=== PATIENT | female | born 1960 | race African-American/Black ===

== ENCOUNTER 2016-10-15 15:11 | Emergency (ER) | payer OTHER ==
[2016-10-15 15:24] VITALS: BP 161/89; PULSE 106; TEMP 97.5; BMI 42.9
[2016-10-15] MEDS ORDERED: OXYCODONE/APAP 5/325MG COMBO TABLET PO ONE (16:13)
--- NOTE | 2016-10-15 16:13 | PDOC ---
History of Present Illness - General Chief Complaint: Pain Stated Complaint: LT KNEE PAIN, NAUSEA Time Seen by Provider: 10/15/16 15:26 - History of Present Illness Initial Comments: 10/15/16 16:07 CHIEF COMPLAINT: left knee pain HISTORY OF PRESENT ILLNESS: 55-year-old female with history of hypertension and chronic knee pain (1 year ), presents to [facility] with left knee pain after running out of pain medication. Patient states that she needs a knee replacement and sees Dr. Guadalupe for pain management and Dr. Adonay Vernon for orthopedics. Patient denies chest pain, shortness of breath, palpitations, but states that she has feels felt nauseous recently due to to pain and not having pain medication. Patient denies fever, nausea, vomiting, diarrhea. Patient states she is able to walk but does feel a lot of pain inside her knee. Patient denies any swelling to her legs. Patient reports that she has an appointment scheduled for Monday with . No recent travel or sick contacts. PAST MEDICAL HISTORY: Denies past medical history FAMILY HISTORY: Denies SOCIAL HISTORY: Denies tobacco, alcohol, illicit drug use. SURGICAL HISTORY: Denies ALLERGIES: No known drug allergies REVIEW OF SYSTEMS General/Constitutional: Denies fever or chills. Denies weakness, weight change. HEENT: Denies change in vision. Denies ear pain or discharge. Denies sore throat. Cardiovascular: Denies chest pain or shortness of breath. Respiratory: Denies cough, wheezing, or hemoptysis. Gastrointestinal: Denies nausea, vomiting, diarrhea or constipation. Denies rectal bleeding. Genitourinary: Denies dysuria, frequency, or change in urination. Musculoskeletal: "My knee hurts, I need a knee replacement." Denies joint or muscle swelling or pain. Denies neck or back pain. Skin and breasts: Denies rash or easy bruising. Neurologic: Denies headache, vertigo, loss of consciousness, or loss of sensation. PHYSICAL EXAM General Appearance: Well-appearing, appropriately dressed. No apparent distress , no intoxication. HEENT: EOMI, PERRLA, normal ENT inspection, normal voice, TMs normal, pharynx normal. No conjunctival pallor. No photophobia, scleral icterus. Respiratory/Chest: Lungs CTAB. Cardiovascular: RRR. S1, S2. Vascular Pulses: Dorsalis-Pedis (R): 2+, Dorsalis-Pedis (L): 2+ Gastrointestinal/Abdominal: Normal bowel sounds. Abdomen soft, non-distended. No tenderness or rebound tenderness. No organomegaly, pulsatile mass, guarding , hernia, hepatomegaly, splenomegaly. Musculoskeletal/Extremities: Pain to left knee. No appreciable calf tenderness or swelling, negative Robert's sign. Normal inspection. FROM of all extremities, normal capillary refill. Pelvis Stable. No CVA tenderness. No tenderness to extremities, pedal edema, swelling, erythema or deformity. Integumentary: Appropriate color, dry, warm. 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 Fully oriented, alert. Appropriate mood/affect. No appreciable EOM palsy, facial droop or sensory deficit. Past History - Past Medical History Allergies/Adverse Reactions: Allergies Allergy/AdvReac Type Severity Reaction Status Date / Time No Known Allergies Allergy Verified 04/04/16 11:05 Home Medications: Ambulatory Orders Aspirin [Ecotrin] 81 mg PO DAILY 03/24/16 Carvedilol 25 mg PO BID 03/24/16 Citalopram Hydrobromide [Celexa -] 40 mg PO DAILY 03/24/16 Furosemide [Lasix -] 40 mg PO DAILY PRN 03/24/16 Losartan/Hydrochlorothiazide [Losartan-Hctz 100-25 mg Tab] 1 each PO DAILY 03/24 Omeprazole [Prilosec] 40 mg PO DAILY 03/24/16 Oxycodone HCl/Acetaminophen [Endocet 5-325 Tablet] 2 tab PO QID PRN 03/24/16 Quetiapine Fumarate [Seroquel] 100 tab PO DAILY 03/24/16 Sitagliptin Phosphate [Januvia] 10 mg PO DAILY 03/24/16 Zolpidem Tartrate 5 mg PO HS 03/24/16 Gabapentin 300 mg PO QID 03/27/16 Nitrofurantoin Monohyd/M-Cryst [Macrobid -] 100 mg PO BID #14 capsule 03/27/16 Oxycodone HCl/Acetaminophen [Percocet 5-325 mg Tablet] 1 - 2 tab PO Q6H PRN #12 tab MDD 6 10/15/16 Anemia: No Asthma: No Cancer: No Cardiac Disorders: No CVA: No COPD: No CHF: No Dementia: No Diabetes: No (BORDERLINE) GI Disorders: Yes (REFLUX) Disorders: No HTN: Yes Hypercholesterolemia: No Liver Disease: No Seizures: No Thyroid Disease: No - Psycho/Social/Smoking Cessation Hx Anxiety: No Suicidal Ideation: No Smoking History: Never smoked Have you smoked in the past 12 months: Yes Information on smoking cessation initiated: No Hx Alcohol Use: No Drug/Substance Use Hx: No Substance Use Type: None *Physical Exam - Vital Signs Last Vital Signs Temp Pulse Resp BP Pulse Ox 97.5 F L 106 H 20 161/89 100 10/15/16 15:21 10/15/16 15:21 10/15/16 15:21 10/15/16 15:21 10/15/16 15:21 Medical Decision Making - Medical Decision Making 10/15/16 16:13 55-year-old female with history of hypertension and chronic knee pain presents to [facility] with left knee pain status post running out of pain medication. -2 tabs Percocet 05/325 Advised patient that she must keep her appointment with her pain management doctor, and schedule an appointment with her orthopedic doctor next week. Advised patient that she cannot drive or operate heavy machinery while taking this medication. As patient of signs and symptoms for return to ER. Patient verbalized understanding and agrees to plan *DC/Admit/Observation/Transfer Diagnosis at time of Disposition: Left anterior knee pain - Discharge Dispostion Disposition: HOME Condition at time of disposition: Stable Admit: No - Prescriptions Prescriptions: Oxycodone HCl/Acetaminophen [Percocet 5-325 mg Tablet] 1 - 2 tab PO Q6H PRN #12 tab MDD 6 PRN Reason: Pain - Referrals Referrals: Jessy Elias [Primary Care Provider] - - Patient Instructions Printed Discharge Instructions: DI for Knee Pain Additional Instructions: As discussed, please take this medication as prescribed; do not drive or operate machinery while taking this medication. You must follow-up with her pain management doctor on Monday. Please schedule an appointment with your orthopedic doctor for next week as well. If you develop any chest pain, shortness of breath, palpitations, nausea, weakness, headache, or any new or worsening symptoms, please return to the ER.
[2016-10-15] MEDS ORDERED: OXYCODONE/APAP 5/325MG COMBO TABLET ONE ×2 (16:22→16:25)
== END 2016-10-15 17:05 | disposition home or self-care (01) ==
LOC: JERFT 15:11
DX: M25.562 Pain in left knee (principal); G89.29 Other chronic pain; I10 Essential (primary) hypertension
CPT/HCPCS: 99281-25

== ENCOUNTER 2016-11-03 14:51 | Emergency (ER) | payer OTHER ==
[2016-11-03 15:02] VITALS: BP 143/55; PULSE 104; TEMP 98; BMI 44.4
[2016-11-03] MEDS ORDERED: KETOROLAC TROMETHAMINE 60 MG/2 ML VIAL IM ONE (15:10)
[2016-11-03] MEDS ORDERED: KETOROLAC TROMETHAMINE 60 MG/2 ML VIAL ONE (15:11)
--- NOTE | 2016-11-03 15:22 | PDOC ---
History of Present Illness - General Chief Complaint: Pain, Acute Stated Complaint: RT KNEE/FOOT PAIN Time Seen by Provider: 11/03/16 14:53 - History of Present Illness Initial Comments: 11/03/16 15:16 CHIEF COMPLAINT: knee pain HISTORY OF PRESENT ILLNESS: 55-year-old female with history of hypertension and chronic knee pain (1 year ), presents to [facility] with left knee pain that she was recently seen in this ER for 2-3 weeks ago. Patient states she did follow up with ortho as directed "but he didn't prescribe me anything." She does have a knee replacement scheduled for January. No recent travel or sick contacts. PAST MEDICAL HISTORY: Denies past medical history FAMILY HISTORY: Denies SOCIAL HISTORY: Denies tobacco, alcohol, illicit drug use. SURGICAL HISTORY: Denies ALLERGIES: No known drug allergies REVIEW OF SYSTEMS General/Constitutional: Denies fever or chills. Denies weakness, weight change. HEENT: Denies change in vision. Denies ear pain or discharge. Denies sore throat. Cardiovascular: Denies chest pain or shortness of breath. Respiratory: Denies cough, wheezing, or hemoptysis. Gastrointestinal: Denies nausea, vomiting, diarrhea or constipation. Denies rectal bleeding. Genitourinary: Denies dysuria, frequency, or change in urination. Musculoskeletal: Left knee pain. Denies joint or muscle swelling or pain. Denies neck or back pain. Skin and breasts: Denies rash or easy bruising. PHYSICAL EXAM General Appearance: Well-appearing, appropriately dressed. No apparent distress. HEENT: EOMI, PERRLA, normal ENT inspection, normal voice, TMs normal, pharynx normal. No conjunctival pallor. No photophobia, scleral icterus. Neck: Supple. Trachea midline. No tenderness, rigidity, carotid bruit, stridor , lymphadenopathy, or thyromegaly. Respiratory/Chest: Lungs CTAB. Cardiovascular: RRR. S1, S2. Musculoskeletal/Extremities: Tenderness to left medial knee. Normal inspection. FROM of all extremities, normal capillary refill. Pelvis Stable. No CVA tenderness. No tenderness to extremities, pedal edema, swelling, erythema or deformity. Integumentary: Appropriate color, dry, warm. No cyanosis, erythema, jaundice or rash Neurologic: knitting machine tender II-XII intact. Fully oriented, alert. Appropriate mood/affect. Motor strength 5/5. No appreciable EOM palsy, facial droop or sensory deficit. Past History - Past Medical History Allergies/Adverse Reactions: Allergies Allergy/AdvReac Type Severity Reaction Status Date / Time No Known Allergies Allergy Verified 11/03/16 14:56 Home Medications: Ambulatory Orders Aspirin [Ecotrin] 81 mg PO DAILY 03/24/16 Carvedilol 25 mg PO BID 03/24/16 Citalopram Hydrobromide [Celexa -] 40 mg PO DAILY 03/24/16 Furosemide [Lasix -] 40 mg PO DAILY PRN 03/24/16 Losartan/Hydrochlorothiazide [Losartan-Hctz 100-25 mg Tab] 1 each PO DAILY 03/24 Omeprazole [Prilosec] 40 mg PO DAILY 03/24/16 Oxycodone HCl/Acetaminophen [Endocet 5-325 Tablet] 2 tab PO QID PRN 03/24/16 Quetiapine Fumarate [Seroquel] 100 tab PO DAILY 03/24/16 Sitagliptin Phosphate [Januvia] 10 mg PO DAILY 03/24/16 Zolpidem Tartrate 5 mg PO HS 03/24/16 Gabapentin 300 mg PO QID 03/27/16 Nitrofurantoin Monohyd/M-Cryst [Macrobid -] 100 mg PO BID #14 capsule 03/27/16 Oxycodone HCl/Acetaminophen [Percocet 5-325 mg Tablet] 1 - 2 tab PO Q6H PRN #12 tab MDD 6 10/15/16 Diclofenac Sodium [Voltaren -] 75 mg PO BID #14 tablet. 11/03/16 Anemia: No Asthma: No Cancer: No Cardiac Disorders: No CVA: No COPD: No CHF: No Dementia: No Diabetes: No (BORDERLINE) GI Disorders: Yes (REFLUX) Disorders: No HTN: Yes Hypercholesterolemia: No Liver Disease: No Seizures: No Thyroid Disease: No Other medical history: chronic knee pain - Psycho/Social/Smoking Cessation Hx Anxiety: No Suicidal Ideation: No Smoking History: Never smoked Have you smoked in the past 12 months: Yes Information on smoking cessation initiated: No Hx Alcohol Use: No Drug/Substance Use Hx: No Substance Use Type: None *Physical Exam - Vital Signs Last Vital Signs Temp Pulse Resp BP Pulse Ox 98 F 104 H 18 143/55 97 11/03/16 14:53 11/03/16 14:53 11/03/16 14:53 11/03/16 14:53 11/03/16 14:53 ED Treatment Course - Medications Given in the ED: ED Medications Discontinued Medications Generic Name Dose Route Start Last Admin Trade Name Fatoumata PRN Reason Stop Dose Admin Ketorolac Tromethamine 60 mg 11/03/16 15:10 11/03/16 15:15 Toradol Injection - IM 11/03/16 15:11 60 mg ONCE ONE Administration Medical Decision Making - Medical Decision Making 11/03/16 15:22 55-year-old female with history of hypertension and chronic knee pain (1 year ) , presents to [facility] with left knee pain that she was recently seen in this ER for 2-3 weeks ago. [facility] referenced. Patient has filled multiple scripts for narcotics from different providers within the last two weeks. -60 mg IM Toradol Will discharge with NSAIDS. Discussed with patient that she needs to continue follow up with pain management and ortho for her knee pain. Advised patient of signs and symptoms for return to ER; patient verbalized understanding and agrees to plan. *DC/Admit/Observation/Transfer Diagnosis at time of Disposition: Left anterior knee pain - Discharge Dispostion Disposition: HOME Condition at time of disposition: Stable Admit: No - Prescriptions Prescriptions: Diclofenac Sodium [Voltaren -] 75 mg PO BID #14 tablet.dr - Referrals Referrals: Jessy Elias [Primary Care Provider] - - Patient Instructions Printed Discharge Instructions: DI for Knee Pain Additional Instructions: Please take medications as prescribed. As discussed, you must follow up with orthopedics and pain management for your knee pain as they are the ones following your care consistently. If you develop any swelling to your leg, shortness of breath, palpitations, or any new or worsening symptoms, please return to the ER.
== END 2016-11-03 15:40 | disposition home or self-care (01) ==
LOC: JERFT 14:51
PROC: 3E0233Z Introduction of Anti-inflammatory into Muscle, Percutaneous Approach (ICD-10-PCS; principal; 2016-11-03)
DX: M25.562 Pain in left knee (principal); I10 Essential (primary) hypertension; K21.9 Gastro-esophageal reflux disease without esophagitis
CPT/HCPCS: 99281-25

== ENCOUNTER 2017-01-30 11:22 | Emergency (ER) | payer OTHER ==
[2017-01-30 11:45] VITALS: BP 168/94; PULSE 103; TEMP 98; BMI 43.4
[2017-01-30] MEDS ORDERED: OXYCODONE/APAP 5/325MG COMBO TABLET PO ONE (12:57)
--- NOTE | 2017-01-30 12:57 | PDOC ---
History of Present Illness - General Chief Complaint: Pain Stated Complaint: BACK P-AIN Time Seen by Provider: 01/30/17 11:57 Past History - Past Medical History Allergies/Adverse Reactions: Allergies Allergy/AdvReac Type Severity Reaction Status Date / Time No Known Allergies Allergy Verified 01/30/17 11:45 Home Medications: Ambulatory Orders Aspirin [Ecotrin] 81 mg PO DAILY 03/24/16 Carvedilol 25 mg PO BID 03/24/16 Citalopram Hydrobromide [Celexa -] 40 mg PO DAILY 03/24/16 Losartan/Hydrochlorothiazide [Losartan-Hctz 100-25 mg Tab] 1 each PO DAILY 03/24 Omeprazole [Prilosec] 40 mg PO DAILY 03/24/16 Quetiapine Fumarate [Seroquel] 100 tab PO DAILY 03/24/16 Sitagliptin Phosphate [Januvia] 10 mg PO DAILY 03/24/16 Zolpidem Tartrate 5 mg PO HS 03/24/16 Nitrofurantoin Monohyd/M-Cryst [Macrobid -] 100 mg PO BID #14 capsule 03/27/16 Diclofenac Sodium [Voltaren -] 75 mg PO BID #14 tablet. 11/03/16 Gabapentin [Neurontin] 300 mg PO TID #30 capsule 01/30/17 Oxycodone HCl/Acetaminophen [Percocet 5-325 mg Tablet] 1 - 2 tab PO TID PRN #20 tab MDD 6 01/30/17 Anemia: No Asthma: No Cancer: No Cardiac Disorders: No CVA: No COPD: No CHF: No Dementia: No Diabetes: No (BORDERLINE) GI Disorders: Yes (REFLUX) Disorders: No HTN: Yes Hypercholesterolemia: No Liver Disease: No Seizures: No Thyroid Disease: No - Immunization History Immunization Up to Date: Yes - Psycho/Social/Smoking Cessation Hx Anxiety: No Suicidal Ideation: No Smoking History: Never smoked Have you smoked in the past 12 months: Yes Information on smoking cessation initiated: No Hx Alcohol Use: No Drug/Substance Use Hx: No Substance Use Type: None Review of Systems - Review of Systems Constitutional: No: Chills, Fever Respiratory: No: Cough, Shortness of Breath Cardiac (ROS): No: Chest Pain ABD/GI: No: Nausea, Vomiting Musculoskeletal: Yes: Joint Pain Neurological: Yes: Tingling. No: Headache, Numbness, Weakness All Other Systems: Reviewed and Negative *Physical Exam - Vital Signs Last Vital Signs Temp Pulse Resp BP Pulse Ox 98.0 F 103 H 16 168/94 100 01/30/17 11:25 01/30/17 11:25 01/30/17 11:25 01/30/17 11:25 01/30/17 11:25 Medical Decision Making - Medical Decision Making 01/30/17 12:57 A portion of this note was documented by scribe services under my direction. I have reviewed the details of the note, within reason, and agree with the documentation with the following case summary and management plan written by me. 56-year-old female with history of arthritis pending left knee replacement maintained on daily Percocet presents for Percocet refill. No change or new injury, no fever or redness or swelling. Patient has also been experiencing right fingertip tingling for a few days, so a neurologist and was given propranolol, but she is asking to make sure that she is not having a stroke or heart attack. She has no other concerning symptoms. Vital signs normal. HR 74 in stretcher. Neurological exam is normal. Left knee without redness or swelling, full range of motion without acute effusion Neurovascularly intact distally 56-year-old female essentially here for Percocet refill. Her right hand tingling could be related to diabetes, could be arthritic, but does not appear related to stroke or ACS. Reassured No emergent workup indicated Will give dose of pain med (taking taxi home) and will give brief refill but counseled regarding precautions for these meds and that she should follow up with her PMD/ortho for her pain med needs. *DC/Admit/Observation/Transfer Diagnosis at time of Disposition: Arthritis of left knee - Discharge Dispostion Disposition: HOME Condition at time of disposition: Stable - Prescriptions Prescriptions: Gabapentin [Neurontin] 300 mg PO TID #30 capsule Oxycodone HCl/Acetaminophen [Percocet 5-325 mg Tablet] 1 - 2 tab PO TID PRN #20 tab MDD 6 PRN Reason: Pain - Referrals Referrals: Ori Rhodes DO [Staff Physician] - Karlos Manrique MD [Staff Physician] - - Patient Instructions Printed Discharge Instructions: DI for Arthritis, DI for Prescription Opioid Use Additional Instructions: Activity as tolerated. Stay hydrated. Percocet and gabapentin as prescribed. Percocet can make you lightheaded, so take proper precautions. Continue your other medications as previously prescribed by your physician. You should follow up with your primary doctor, Dr. Rhodes, and your orthopedic as soon as possible regarding today's emergency department visit. Return to the emergency department for any new or concerning symptoms, particularly fever/chills, weakness/headache/numbness, intolerable pain.
[2017-01-30] MEDS ORDERED: OXYCODONE/APAP 5/325MG COMBO TABLET ONE (13:05)
== END 2017-01-30 13:15 | disposition home or self-care (01) ==
LOC: JER 11:22
DX: M13.862 Other specified arthritis, left knee (principal); I10 Essential (primary) hypertension; E11.9 Type 2 diabetes mellitus without complications; Z79.84 Long term (current) use of oral hypoglycemic drugs; K21.9 Gastro-esophageal reflux disease without esophagitis
CPT/HCPCS: 99282-25

== ENCOUNTER 2017-02-01 14:13 | Emergency (ER) | payer OTHER ==
[2017-02-01 14:22] VITALS: TEMP 99; BMI 27.4
--- NOTE | 2017-02-01 14:22 | PDOC ---
History of Present Illness - General Chief Complaint: Injury Stated Complaint: FALL History Source: Patient Exam Limitations: No Limitations - History of Present Illness Initial Comments: 02/01/17 14:26 This is a 55 yo F with PMH of HTN and chronic L knee pain (1 year ), who presents with bernardo pain lower back pain s/p fall yesterday. Yesterday afternoon she suffered a witnessed mechanical fall, when she tripped on a curb and fell forward, landing on the grass with her R knee and hitting her forehead on grass. She lost consciousness for a few seconds then woke up and got up. She was able to walk after. Immediately after fall, she had a mild frontal h/a that persists this morning. However, this morning she also has new symptoms of neck pain, unable to bend neck to the left or turn head left due to pain. She also complains of L lumbar pain radiating down her buttock and her L posterior thigh. She denies n/v, loss of bowel fxn, incontinence, weakness or numbness, chest pain, sob, palpitation, further loc, dizziness, f/c, diarrhea, constipation, dysuria. She is asking for percocet stating that it is the only medication that helps her. 02/01/17 15:43 02/01/17 18:32 Past History - Past Medical History Allergies/Adverse Reactions: Allergies Allergy/AdvReac Type Severity Reaction Status Date / Time No Known Allergies Allergy Verified 02/01/17 14:17 Home Medications: Ambulatory Orders Aspirin [Ecotrin] 81 mg PO DAILY 03/24/16 Carvedilol 25 mg PO BID 03/24/16 Citalopram Hydrobromide [Celexa -] 40 mg PO DAILY 03/24/16 Losartan/Hydrochlorothiazide [Losartan-Hctz 100-25 mg Tab] 1 each PO DAILY 03/24 Omeprazole [Prilosec] 40 mg PO DAILY 03/24/16 Quetiapine Fumarate [Seroquel] 100 tab PO DAILY 03/24/16 Sitagliptin Phosphate [Januvia] 10 mg PO DAILY 03/24/16 Zolpidem Tartrate 5 mg PO HS 03/24/16 Diclofenac Sodium [Voltaren -] 75 mg PO BID #14 tablet. 11/03/16 Gabapentin [Neurontin] 300 mg PO TID #30 capsule 01/30/17 Oxycodone HCl/Acetaminophen [Percocet 5-325 mg Tablet] 1 - 2 tab PO TID PRN #20 tab MDD 6 01/30/17 Methocarbamol [Robaxin -] 500 mg PO BID #14 tablet 02/01/17 Anemia: No Asthma: No Cancer: No Cardiac Disorders: No CVA: No COPD: No CHF: No Dementia: No Diabetes: No (BORDERLINE) GI Disorders: Yes (REFLUX) Disorders: No HTN: Yes Hypercholesterolemia: No Liver Disease: No Seizures: No Thyroid Disease: No - Immunization History Immunization Up to Date: Yes - Psycho/Social/Smoking Cessation Hx Anxiety: No Suicidal Ideation: No Smoking History: Never smoked Have you smoked in the past 12 months: Yes Hx Alcohol Use: No Drug/Substance Use Hx: No Substance Use Type: None Review of Systems - Review of Systems Able to Perform ROS?: Yes Is the patient limited Swiss proficient: No Constitutional: No: Chills, Fever HEENTM: No: Blurred Vision, Nose Congestion, Nose Bleeding, Throat Pain Respiratory: No: Cough, Orthopnea, Shortness of Breath Cardiac (ROS): No: Chest Pain, Irregular Heart Rate, Lightheadedness, Palpitations ABD/GI: No: Abdominal Distended, Constipated, Diarrhea, Nausea, Vomiting : No: Dysuria, Flank Pain Musculoskeletal: Yes: Back Pain, Joint Pain (r knee), Muscle Pain (L neck ), Neck Pain. No: Joint Swelling, Muscle Weakness, Joint Stiffness Integumentary: Yes: Lesions (small abrasion in R knee), Lumps (small lump on r forehead ). No: Bruising, Rash Neurological: Yes: Headache. No: Numbness, Paresthesia, Seizure, Tingling, Weakness, Ataxia, Dizziness Psychiatric: No: Anxiety, Depression Endocrine: No: Change in Weight Hematologic/Lymphatic: No: Anemia, Blood Clots, Easy Bleeding, Easy Bruising All Other Systems: Reviewed and Negative *Physical Exam - Physical Exam Comments: 02/01/17 15:53 General: NAD AAOx3 HEENT:PERRLA EOMI, sclera anicteric, conjunctiva clear CV: RRR S1S2 Pulm: CTA b/l GI: obese, soft, nontender, nondistended, normoactive bowel sounds. Neuro: CN II-XII intact, strength 5/5 in all extremities, sensation intact Musculoskeletal: no peripheral edema or calf tenderness, small r knee abrasion, limited ROM in neck with L sided rotation and side bending and well as flexion, both passive and active due to pain. mild tenderness over cervical and lumbar spine. Medical Decision Making - Medical Decision Making 02/01/17 15:55 Patient presents s/p mechanical fall with clinical picture most consistent with post traumatic L sided SCM and gluteal muscle spasm. Head trauma mechanism mild not suspicious for intracranial bleed or CVA X ray: R knee, c spine, l spine r/o fracture. motrin and flexeril, one percocet Patient may be drug seeking for opiates, however degree and mechanism of pain does not warrant opiate as first line treatment 02/01/17 15:57 02/01/17 18:32 x rays unremarkable for acute fracture. Patient stable for d/c home with PCP f/u, will prescribe robaxin 500 bid 02/01/17 18:32 02/01/17 18:33 02/01/17 18:33 02/01/17 18:34 02/01/17 18:51 02/01/17 18:52 *DC/Admit/Observation/Transfer Diagnosis at time of Disposition: Muscle spasm, Fall - Prescriptions Prescriptions: Methocarbamol [Robaxin -] 500 mg PO BID #14 tablet - Referrals Referrals: Jessy Elias [Primary Care Provider] - - Patient Instructions
[2017-02-01] MEDS ORDERED: CYCLOBENZAPRINE HCL 10 MG TABLET (FP) PO ONE (15:02)
[2017-02-01] MEDS ORDERED: IBUPROFEN 600 MG TABLET (FP) PO ONE ×2 (15:03→15:06)
[2017-02-01] MEDS ORDERED: CYCLOBENZAPRINE HCL 10 MG TABLET (FP) ONE (15:05)
--- NOTE | 2017-02-01 15:52 | PDOC ---
Attending Attestation - Resident Resident Name: Rowan Webb - ED Attending Attestation I have performed the following: I have examined & evaluated the patient, The case was reviewed & discussed with the resident, I agree w/resident's findings & plan - HPI HPI: 02/01/17 15:49 56y F hx of chronic knee pain, htn, presents s/p fall The pt states she was coming out of the car and tripped over an uneven curb, striking her head on the floor and knee. The pt endorsed possible brief loc, but felt fine yetserday and she states she was evaluated at [facility] and had an xray stanley twas negative. pt come to the ED today due to onset of neck an dupper back pain this morning. no assoicated new numbness/tingling/weakness, no midline back pain, no headache, n/v, vision changes. pt also complains of persistent knee pain. pt has mild contusion to her L forehead with no creiptus PERRL, neuro exam unremarakble no tenderness on midline cervical/thoracic/lumbar region +tenderness at L trapenizus and upper back muscles to palpation diffuse knee pain b/l but able to passively range it without much difficulty exam otherwise as documented by resident will obtain xrays pain control suspect contusion/strain will treat supportively - Physicial Exam PE: 02/03/17 09:12 see above - Medical Decision Making 02/03/17 09:12 see above
[2017-02-01] MEDS ORDERED: OXYCODONE/APAP 5/325MG COMBO TABLET PO ONE ×2 (16:31→19:12)
[2017-02-01] MEDS ORDERED: OXYCODONE/APAP 5/325MG COMBO TABLET ONE ×2 (16:54→19:20)
--- NOTE | 2017-02-01 20:37 | PDOC ---
*Physical Exam - Vital Signs Last Vital Signs Temp Pulse Resp BP Pulse Ox 99 F 94 H 18 156/90 97 02/01/17 14:17 02/01/17 14:17 02/01/17 14:17 02/01/17 14:17 02/01/17 14:17 ED Treatment Course - Medications Given in the ED: ED Medications Discontinued Medications Generic Name Dose Route Start Last Admin Trade Name Freq PRN Reason Stop Dose Admin Cyclobenzaprine HCl 10 mg 02/01/17 15:02 02/01/17 15:12 Flexeril - PO 02/01/17 15:03 10 mg ONCE ONE Administration Ibuprofen 600 mg 02/01/17 15:03 02/01/17 15:12 Motrin - PO 02/01/17 15:04 600 mg ONCE ONE Administration Oxycodone/Acetaminophen 1 combo 02/01/17 16:31 02/01/17 16:57 Percocet 5/325 - PO 02/01/17 16:32 1 combo ONCE ONE Administration Oxycodone/Acetaminophen 1 combo 02/01/17 19:12 02/01/17 19:23 Percocet 5/325 - PO 02/01/17 19:13 1 combo ONCE ONE Administration Medical Decision Making - Medical Decision Making I reviewed the XR reports with patient. Percocet and robaxin prescribed for pain. I was later contacted by the pharmacy, as robaxin is not covered by her insurance. Changed to tizanadine. *DC/Admit/Observation/Transfer Diagnosis at time of Disposition: Muscle spasm Fall Qualifiers: Encounter type: initial encounter Qualified Code(s): W19.XXXA - Unspecified fall, initial encounter - Discharge Dispostion Disposition: HOME Condition at time of disposition: Stable Admit: No - Prescriptions Prescriptions: Oxycodone HCl/Acetaminophen [Percocet 5-325 mg Tablet] 1 - 2 tab PO Q6H PRN #20 tab MDD 8 tabs PRN Reason: Severe Pain Methocarbamol [Robaxin -] 500 mg PO BID #14 tablet - Referrals Referrals: Jessy Elias [Primary Care Provider] - - Patient Instructions Printed Discharge Instructions: DI for Contusion, DI for Knee Pain - Post Discharge Activity
[2017-02-01 21:29] VITALS: BP 145/85; PULSE 82
== END 2017-02-01 21:29 | disposition home or self-care (01) ==
LOC: JER 14:13
DX: S00.83XA Contusion of other part of head, initial encounter (principal); M54.5 Low back pain; M79.652 Pain in left thigh; W10.1XXA Fall (on)(from) sidewalk curb, initial encounter; Y93.01 Activity, walking, marching and hiking; Y92.480 Sidewalk as the place of occurrence of the external cause; Y99.8 Other external cause status
CPT/HCPCS: 72050-TC; 72100-TC; 73560-TC-RT; 99283-25

== ENCOUNTER 2017-02-09 11:40 | Emergency (ER) | payer OTHER ==
[2017-02-09 11:58] VITALS: BP 153/64; PULSE 79; TEMP 98.5; BMI 43.5
--- NOTE | 2017-02-09 12:03 | PDOC ---
"History of Present Illness - General Chief Complaint: Pain Stated Complaint: LEGS PAIN Time Seen by Provider: 02/09/17 11:59 History Source: Patient Exam Limitations: No Limitations - History of Present Illness Initial Comments: CHIEF COMPLAINT: 56 y/o afebrile female with chronic pain and scheduled for a left knee replacement here for a refill of percocet for her left knee pain. HISTORY OF PRESENT ILLNESS: The patient states that she needs a left knee replacement and does see a pain management doctor. SHe states she is not scheduled for her pain management appointment until next week and needs percocet for her knee pain. She denies any new trauma to the knee. SHe denies f /c, redness/warmth to affected extremity. Vital signs on arrival are within normal limits. REVIEW OF SYSTEMS: GENERAL/CONSTITUTIONAL: No fever/chills. No weakness. No weight change. GENITOURINARY: No dysuria, frequency, or change in urination. MUSCULOSKELETAL: +left knee pain. NEUROLOGIC: No headache, vertigo, loss of consciousness, or loss of sensation. PHYSICAL EXAM: VITAL_SIGNS: within normal limits GENERAL_APPEARANCE: alert, cooperative, mild obvious discomfort with ambulation. The patient is morbidly obese and ambulatory with a cane. MENTAL_STATUS: speech clear, oriented X 3, responds appropriately to questions. NEURO: motor intact and sensory intact in injured extremity. EXTREMITIES: good pulse in injured extremity. Left knee without edema, erythema or warmth. TTP medial and lateral joint lines of left knee. Full flexion and extension of left knee. SKIN: warm, dry, good color. Past History - Past Medical History Allergies/Adverse Reactions: Allergies Allergy/AdvReac Type Severity Reaction Status Date / Time No Known Allergies Allergy Verified 02/09/17 11:53 Home Medications: Ambulatory Orders Aspirin [Ecotrin] 81 mg PO DAILY 03/24/16 Carvedilol 25 mg PO BID 03/24/16 Citalopram Hydrobromide [Celexa -] 40 mg PO DAILY 03/24/16 Losartan/Hydrochlorothiazide [Losartan-Hctz 100-25 mg Tab] 1 each PO DAILY 03/24 Omeprazole [Prilosec] 40 mg PO DAILY 03/24/16 Quetiapine Fumarate [Seroquel] 100 tab PO DAILY 03/24/16 Sitagliptin Phosphate [Januvia] 10 mg PO DAILY 03/24/16 Zolpidem Tartrate 5 mg PO HS 03/24/16 Diclofenac Sodium [Voltaren -] 75 mg PO BID #14 tablet. 11/03/16 Gabapentin [Neurontin] 300 mg PO TID #30 capsule 01/30/17 Oxycodone HCl/Acetaminophen [Percocet 5-325 mg Tablet] 1 - 2 tab PO TID PRN #20 tab MDD 6 01/30/17 Methocarbamol [Robaxin -] 500 mg PO BID #14 tablet 02/01/17 Oxycodone HCl/Acetaminophen [Percocet 5-325 mg Tablet] 1 - 2 tab PO Q6H PRN #20 tab MDD 8 tabs 02/01/17 Anemia: No Asthma: No Cancer: No Cardiac Disorders: No CVA: No COPD: No CHF: No Dementia: No Diabetes: No (BORDERLINE) GI Disorders: Yes (REFLUX) Disorders: No HTN: Yes Hypercholesterolemia: No Liver Disease: No Seizures: No Thyroid Disease: No - Immunization History Immunization Up to Date: Yes - Psycho/Social/Smoking Cessation Hx Anxiety: No Suicidal Ideation: No Smoking History: Never smoked Have you smoked in the past 12 months: Yes Hx Alcohol Use: No Drug/Substance Use Hx: No Substance Use Type: None *Physical Exam - Vital Signs Last Vital Signs Temp Pulse Resp BP Pulse Ox 98.5 F 79 17 153/64 98 02/09/17 11:53 02/09/17 11:53 02/09/17 11:53 02/09/17 11:53 02/09/17 11:53 Medical Decision Making - Medical Decision Making A/P: 56 y/o here for refill of percocet for left knee pain. The patient's record was pulled up on [facility]. She was prescribed 90 pills of endocet on 01/18 which she states doesn't work for her. She states Percocet works for her only ( same ingredients). She had percocet prescribed on 01/30 and on 02/01 (both 4 day prescriptions). Please see istop report below. Confidential Drug Utilization Report Search Terms: alana arcos, 1960 Search Date: 02/09/2017 12:25:00 PM The Drug Utilization Report below displays all of the controlled substance prescriptions, if any, that your patient has filled in the last twelve months. The information displayed on this report is compiled from pharmacy submissions to the Department, and accurately reflects the information as submitted by the pharmacies. This report was requested by: Ellie Saldana | Reference #: [id number] Others' Prescriptions Patient Name: Alana Arcos Date: 1960 Address: [place] [address] Sex: Female Rx Written Rx Dispensed Drug Quantity Days Supply Prescriber Name 02/01/2017 02/01/2017 oxycodone-acetaminophen 5-325 mg tab 20 4 Karina Causey () 01/30/2017 01/30/2017 oxycodone-acetaminophen 5-325 mg tab 20 4 Jose F Lee) 10/15/2016 10/15/2016 oxycodone-acetaminophen 5-325 mg tab 12 2 Nicolle Carrion ([facility]) 06/23/2016 06/23/2016 diazepam 5 mg tablet 3 1 Anthony Perales MD Patient Name: Alana Arcos Date: 1960 Address: [place] [address] Sex: Female Rx Written Rx Dispensed Drug Quantity Days Supply Prescriber Name 01/18/2017 01/18/2017 endocet 10-325 mg tablet 90 30 Zeus Mono A 01/13/2017 01/13/2017 endocet 10-325 mg tablet [address] [facility] [place] 12/13/2016 12/14/2016 endocet 10-325 mg tablet 90 30 NatalioRenny katz 11/16/2016 11/17/2016 endocet 10-325 mg tablet 90 30 Kevin Terrazas MD 11/15/2016 11/15/2016 morphine sulf er 15 mg tablet 60 30 Renny Lance 10/26/2016 10/26/2016 tramadol hcl 50 mg tablet 20 10 Cedrick GibbsP 10/17/2016 10/17/2016 endocet 10-325 mg tablet 120 30 Kevin Terrazas MD 10/11/2016 10/11/2016 tramadol hcl 50 mg tablet 15 8 Jessy Elias MD 09/24/2016 09/24/2016 tramadol hcl 50 mg tablet 20 6 Cedrick GibbsP 09/20/2016 09/20/2016 endocet 10-325 mg tablet 120 30 Zeus, Mono A 09/14/2016 09/16/2016 tramadol hcl 50 mg tablet 20 10 Cedrick Gibbs Rubin LIP 09/05/2016 09/05/2016 tramadol hcl 50 mg tablet 20 10 Jessy Elias MD 08/23/2016 08/23/2016 tramadol hcl 50 mg tablet 10 3 Rubin Holt MD 08/19/2016 08/19/2016 morphine sulf er 15 mg tablet 60 30 Philip Zarate 08/19/2016 08/19/2016 endocet 10-325 mg tablet 120 30 Philip Zarate 08/03/2016 08/03/2016 zolpidem tartrate 10 mg tablet 30 30 Shayan Jimenez MD 07/20/2016 07/20/2016 endocet 10-325 mg tablet 120 30 Kevin Terrazas MD 07/20/2016 07/20/2016 morphine sulf er 15 mg tablet 60 30 NiniKevin sanchez MD 07/05/2016 07/06/2016 zolpidem tartrate 10 mg tablet 30 30 Shayan Jimenez MD 06/20/2016 06/20/2016 endocet 10-325 mg tablet 90 30 Zeus, Mono A 06/20/2016 06/20/2016 morphine sulf er 15 mg tablet 60 30 Zeus, Mono A 05/20/2016 05/23/2016 morphine sulf er 15 mg tablet 60 30 Kevin Terrazas MD 05/20/2016 05/20/2016 endocet 10-325 mg tablet 90 30 Kevin Terrazas MD 04/20/2016 04/20/2016 endocet 10-325 mg tablet 90 30 Philip Zarate 04/20/2016 04/20/2016 morphine sulf er 15 mg tablet 60 30 Philip Zarate 03/21/2016 03/21/2016 endocet 10-325 mg tablet 90 30 Thor [facility] 03/21/2016 03/21/2016 morphine sulf er 15 mg tablet 60 30 Thor [facility] 02/19/2016 02/19/2016 endocet 10-325 mg tablet 90 30 Kevin Terrazas MD 02/19/2016 02/19/2016 morphine sulf er 15 mg tablet 60 30 Kevin Terrazas MD Patient Name: Alana Arcos Date: 1960 Address: [address] [place] [address] Sex: Female Rx Written Rx Dispensed Drug Quantity Days Supply Prescriber Name 01/10/2017 01/11/2017 zolpidem tartrate 10 mg tablet 30 30 Shayan Jimenez MD 11/29/2016 12/02/2016 zolpidem tartrate 10 mg tablet 30 30 Shayan Jimenez MD 11/01/2016 11/03/2016 zolpidem tartrate 10 mg tablet 30 30 hSayan Jimenez MD 09/27/2016 10/05/2016 zolpidem tartrate 10 mg tablet 30 30 Shayan Jimenez MD 09/06/2016 09/08/2016 zolpidem tartrate 10 mg tablet 30 30 Shayan Jimenez MD Explained to the patient that Endocet and percocet are essentially the same and showed her the Istop report. WIll give toradol in the ER and suggested she call her Pain management doctor tomorrow and attempt to get an earlier appointment. The patient verbalizes understanding of all instructions, has no further questions and is awaiting discharge. *DC/Admit/Observation/Transfer Diagnosis at time of Disposition: Knee pain, left Qualifiers: Chronicity: acute Qualified Code(s): M25.562 - Pain in left knee - Discharge Dispostion Disposition: HOME Condition at time of disposition: Good - Referrals Referrals: Jessy Elias [Primary Care Provider] - - Patient Instructions Printed Discharge Instructions: DI for Knee Pain, How To Perform RICE (Rest, Ice, Compress, Elevate) Additional Instructions: Discharge Instructions: -Please see your pain management doctor as scheduled next week for refill of your narcotic prescription"
[2017-02-09] MEDS ORDERED: KETOROLAC TROMETHAMINE 60 MG/2 ML VIAL IM ONE (12:22)
[2017-02-09] MEDS ORDERED: KETOROLAC TROMETHAMINE 60 MG/2 ML VIAL ONE (12:27)
== END 2017-02-09 12:40 | disposition home or self-care (01) ==
LOC: JERFT 11:40
PROC: 3E0233Z Introduction of Anti-inflammatory into Muscle, Percutaneous Approach (ICD-10-PCS; principal; 2017-02-09)
DX: M25.562 Pain in left knee (principal); G89.29 Other chronic pain
CPT/HCPCS: 99281-25

== ENCOUNTER 2017-03-13 12:21 | Emergency (ER) | payer OTHER ==
[2017-03-13 12:29] VITALS: BP 149/96; PULSE 76; TEMP 98; BMI 41.9
[2017-03-13] MEDS ORDERED: KETOROLAC TROMETHAMINE 60 MG/2 ML VIAL IM ONE (13:54)
[2017-03-13] MEDS ORDERED: KETOROLAC TROMETHAMINE 60 MG/2 ML VIAL ONE ×2 (13:54→13:56)
--- NOTE | 2017-03-13 13:56 | PDOC ---
History of Present Illness - General Chief Complaint: Pain Stated Complaint: BACK PAIN Time Seen by Provider: 03/13/17 13:27 History Source: Patient Exam Limitations: No Limitations - History of Present Illness Initial Comments: 03/13/17 13:56 CHIEF COMPLAINT: 56 y/o afebrile female with history of chronic left knee pain and back pain and was scheduled for knee replacement but had an issue with her insurance has an appointment on the . Patient states that she has no Percocet and is requesting medication. HISTORY OF PRESENT ILLNESS: Patient is a 56-year-old female on chronic pain management for knee and back pain. Patient was last seen by her chronic crayon painter on 02/22/2017. Medication was dispensed on 02/23/2017 for [place] [id number] 10/29/1990 tablets a 30 day supply. Patient now states she does not have any more medication is requesting more. Confidential drug utilization report checked, #[id number]. Vital signs on arrival are within normal limits. REVIEW OF SYSTEMS: GENERAL/CONSTITUTIONAL: No fever/chills. No weakness. No weight change. GENITOURINARY: No dysuria, frequency, or change in urination. MUSCULOSKELETAL: +left knee pain. Lower back pain. NEUROLOGIC: No headache, vertigo, loss of consciousness, or loss of sensation. PHYSICAL EXAM: VITAL_SIGNS: within normal limits GENERAL_APPEARANCE: alert, cooperative, mild obvious discomfort with ambulation. The patient is morbidly obese and ambulatory with a cane. MENTAL_STATUS: speech clear, oriented X 3, responds appropriately to questions. NEURO: motor intact and sensory intact in injured extremity. EXTREMITIES: good pulse in injured extremity. Left knee without edema, erythema or warmth. TTP medial and lateral joint lines of left knee. Full flexion and extension of left knee. No lower spinal point tenderness, there is bilateral paraspinal pain. SKIN: warm, dry, good color. Past History - Past Medical History Allergies/Adverse Reactions: Allergies Allergy/AdvReac Type Severity Reaction Status Date / Time No Known Allergies Allergy Verified 03/13/17 12:29 Home Medications: Ambulatory Orders Aspirin [Ecotrin] 81 mg PO DAILY 03/24/16 Losartan/Hydrochlorothiazide [Losartan-Hctz 100-25 mg Tab] 1 each PO DAILY 03/24 Omeprazole [Prilosec] 40 mg PO DAILY 03/24/16 Quetiapine Fumarate [Seroquel] 100 tab PO DAILY 03/24/16 Sitagliptin Phosphate [Januvia] 10 mg PO DAILY 03/24/16 Zolpidem Tartrate 5 mg PO HS 03/24/16 Gabapentin [Neurontin] 300 mg PO TID #30 capsule 01/30/17 Oxycodone HCl/Acetaminophen [Percocet 5-325 mg Tablet] 1 - 2 tab PO TID PRN #20 tab MDD 6 01/30/17 Oxycodone HCl/Acetaminophen [Percocet 5-325 mg Tablet] 1 - 2 tab PO Q6H PRN #20 tab MDD 8 tabs 02/01/17 Anemia: No Asthma: No Cancer: No Cardiac Disorders: No CVA: No COPD: No CHF: No Dementia: No Diabetes: No (BORDERLINE) GI Disorders: Yes (REFLUX) Disorders: No HTN: Yes Hypercholesterolemia: No Liver Disease: No Seizures: No Thyroid Disease: No - Immunization History Immunization Up to Date: Yes - Psycho/Social/Smoking Cessation Hx Anxiety: No Suicidal Ideation: No Smoking History: Never smoked Have you smoked in the past 12 months: Yes Information on smoking cessation initiated: No Hx Alcohol Use: No Drug/Substance Use Hx: No Substance Use Type: None *Physical Exam - Vital Signs Last Vital Signs Temp Pulse Resp BP Pulse Ox 98 F 76 18 149/96 100 03/13/17 12:26 03/13/17 12:26 03/13/17 12:26 03/13/17 12:26 03/13/17 12:26 Medical Decision Making - Medical Decision Making 03/13/17 14:08 A/P: Patient here for refill of her Percocet however I have assessed I stop and see the patient received a 30 day supply of pain medication on 02/23/2017. Explained to patient at this time that we cannot give her any pain medication she should have enough to cover her until the of the month. I have offered the patient a shot of Toradol 60 mg IM times one and patient should take her chronic pain management medication as needed for her chronic pain. *DC/Admit/Observation/Transfer Diagnosis at time of Disposition: Chronic pain Qualifiers: Chronic pain type: chronic pain syndrome Qualified Code(s): G89.4 - Chronic pain syndrome - Discharge Dispostion Disposition: HOME Condition at time of disposition: Good Admit: No - Referrals Referrals: Jessy Elias [Primary Care Provider] - - Patient Instructions Additional Instructions: Please take your chronic pain medication as needed follow-up with your chronic crayon painter
== END 2017-03-13 14:11 | disposition home or self-care (01) ==
LOC: JERFT 12:21
PROC: 3E0233Z Introduction of Anti-inflammatory into Muscle, Percutaneous Approach (ICD-10-PCS; principal; 2017-03-13)
DX: Z76.0 Encounter for issue of repeat prescription (principal); G89.4 Chronic pain syndrome
CPT/HCPCS: 96372; 99281-25

== ENCOUNTER 2017-04-01 01:10 | Inpatient (IN) | payer OTHER ==
--- NOTE | 2017-04-01 01:54 | HP ---
COWS - Scale Resting Pulse: 1= MO 81-100 Sweatin= Chills/Flushing Restless Observation: 3= Extraneous Movement Pupil Size: 2= Moderately Dilated Bone or Joint Aches: 2= Severe Diffuse Aches Runny Nose/ Eye Tearin= Runny Nose/Eyes GI Upset > 30mins: 3= Vomiting/Diarrhea Tremor Observation: 2= Slight Tremor Visible Yawning Observation: 2= >3x During Session Anxiety or Irritability: 2=Irritable/Anxious Goose Flesh Skin: 0=Smooth Skin COWS Score: 20 Admission ROS BHS - HPI Chief Complaint: i need help to stop using percocet Allergies/Adverse Reactions: Allergies Allergy/AdvReac Type Severity Reaction Status Date / Time No Known Allergies Allergy Verified 04/01/17 03:55 History of Present Illness: this 56 years old 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,never been in detox before history of osteoarthritis left knee for 3 years,ambulate with cane pending on knee replacement type 2 dm hypertension morbid obesity Exam Limitations: No Limitations - Ebola screening Have you traveled outside of the country in the last 21 days: No - Review of Systems Constitutional: Chills, Loss of Appetite, Malaise, Night Sweats, Changes in sleep, Weakness EENT: reports: Tearing, Nose Congestion Respiratory: reports: No Symptoms reported Cardiac: reports: No Symptoms Reported GI: reports: Diarrhea, Nausea, Vomiting, Abdominal cramping : reports: No Symptoms Reported Musculoskeletal: reports: Joint Pain, Joint Swelling (pain in left knee with deformity osteoarthritis), Muscle Pain, Joint Stiffness Integumentary: reports: Dryness Neuro: reports: Headache, Tremors Endocrine: reports: No Symptoms Reported Hematology: reports: No Symptoms Reported Psychiatric: reports: No Sypmtoms Reported, Judgement Intact, Mood/Affect Appropiate, Orientated x3, Depressed Patient History - Patient Medical History Hx Anemia: No Hx Asthma: No Hx Chronic Obstructive Pulmonary Disease (COPD): No Hx Cancer: No Hx Cardiac Disorders: No Hx Congestive Heart Failure: No Hx Hypertension: Yes (on med) Hx Hypercholesterolemia: No Hx Pacemaker: No HX Cerebrovascular Accident: No Hx Seizures: No Hx Dementia: No Hx Diabetes: No (on med) Hx Gastrointestinal Disorders: Yes (REFLUX) Hx Liver Disease: No Hx Genitourinary Disorders: No Hx Renal Disease (ESRD): No Hx Thyroid Disease: No Hx Human Immunodeficiency Virus (HIV): No (last 2016 negative) Hx Hepatitis C: No Hx Depression: Yes Hx Suicide Attempt: No Hx Bipolar Disorder: No Hx Schizophrenia: No Other Medical History: no suicidal,no homicidal - Patient Surgical History Past Surgical History: No - PPD History Previous Implant?: Yes Documented Results: Negative w/o proof Implanted On Prior R Admission?: No PPD to be Administered?: Yes - Reproductive History Patient is a Female of Child Bearing Age (11 -55 yrs old): Yes Last Menstrual Period: 09/23/13 Patient : No - Smoking Cessation Smoking history: Never smoked - Substance & Tx. History Hx Alcohol Use: No Hx Substance Use: Yes Substance Use Type: Opiates Hx Substance Use Treatment: No - Substances Abused percocet Route: Oral Frequency: Daily Amount used: 40 mgs Age of first use: 53 Date of Last Use: 03/30/17 Family Disease History - Family Disease History Family History: Denies Admission Physical Exam S - Vital Signs Vital Signs: Vital Signs Temperature 96.7 F L 04/01/17 02:35 Pulse Rate 88 04/01/17 02:35 Respiratory Rate 20 04/01/17 02:35 Blood Pressure 149/112 04/01/17 02:35 O2 Sat by Pulse Oximetry (%) - Physical General Appearance: Yes: Moderate Distress, Tremorous, Irritable, Sweating, Anxious HEENTM: Yes: Normal ENT Inspection, DALIA, Pharynx Normal Respiratory: Yes: Lungs Clear, Normal Breath Sounds, No Respiratory Distress Neck: Yes: Within Normal Limits, Supple, Trachea in good position Breast: Yes: Breast Exam Deferred Cardiology: Yes: Within Normal Limits, Regular Rhythm, Regular Rate, S1, S2 Abdominal: Yes: Within Normal Limits, Normal Bowel Sounds, Non Tender, Flat, Soft Genitourinary: Yes: Within Normal Limits Back: Yes: Muscle Spasm Musculoskeletal: Yes: Back pain (swelling with deformity of left knee,limtation on movement with pain), Joint swelling, Muscle Pain Extremities: Yes: Tremors, Swelling Neurological: Yes: orchard pruner II-XII NML intact, Fully Oriented, Alert, Motor Strength 5/5 Integumentary: Yes: Dry Lymphatic: Yes: Within Normal Limits - Diagnostic (1) Opioid dependence with withdrawal Current Visit: Yes Status: Acute (2) Morbid obesity Current Visit: Yes Status: Acute (3) DM2 (diabetes mellitus, type 2) Current Visit: Yes Status: Acute (4) Essential hypertension Current Visit: Yes Status: Acute (5) GERD (gastroesophageal reflux disease) Current Visit: Yes Status: Acute (6) Use of cane as ambulatory aid Current Visit: Yes Status: Acute (7) Arthritis of left knee Current Visit: No Status: Acute (8) Depression Current Visit: Yes Status: Acute (9) History of anemia Current Visit: Yes Status: Acute Cleared for Admission S - Detox or Rehab [facility] Level of Care: Medically Managed Detox Regimen/Protocol: Methadone S Breath Alcohol Content Breath Alcohol Content: 0 Vital Signs - Vital Signs Vital Signs Refused: No Temperature: 96.7 F Temperature Source: Oral Pulse Rate: 88 Respiratory Rate: 20 Blood Pressure: 149/112 BP Location: Left Arm - Height Height: 5 ft 6 in - Weight Weight: 254 lb Weight Measurement Method: Standing Scale Body Mass Index (BMI): 41.0 Urine Pregancy Test - Test Device Lot Number: [id number] Expiration Date: 11/04/18 - Control Horizontal Line in Upper Control Window?: Yes - Result Urine Test Results: Negative- NO Line Present Urine Drug Screen - Test Device Lot Number: [id number] Expiration Date: 01/04/19 - Control Is Test Valid: Yes - Results Drug Screen Negative: No Urine Drug Screen Results: OPI-Opiates, TCA-Tricyclic Antidepress, OXY-Oxycodone
[2017-04-01 02:26] VITALS: BMI 41.0
[2017-04-01] MEDS ORDERED: P-EPHED 60MG/TRIPROLIDI 2.5MG TABLET PO PRN (02:46)
[2017-04-01] MEDS ORDERED: MAGNESIUM CITRATE 300 ML BOTTLE PO PRN (02:46)
[2017-04-01] MEDS ORDERED: MAGNESIUM HYDROX 2400MG/30ML ORAL SUSPENSION 30 ML CUP PO PRN (02:46)
[2017-04-01] MEDS ORDERED: MENTHOL/PHENOL 1 EACH UD MM PRN (02:46)
[2017-04-01] MEDS ORDERED: IBUPROFEN 400 MG TABLET (FP) PO PRN (02:46)
[2017-04-01] MEDS ORDERED: METHADONE HCL 10 MG TABLET (FOR DETOX USE ONLY) PO ONE ×3 (02:46→23:00)
[2017-04-01] MEDS ORDERED: diphenhydrAMINE HCL 50 MG CAPSULE PO PRN (02:46)
[2017-04-01] MEDS ORDERED: LOPERAMIDE HCL 2 MG CAPSULE PO PRN (02:46)
[2017-04-01] MEDS ORDERED: guaiFENesin/D-METHORPHAN HB 10 ML UNIT-DOSE CUPS PO PRN (02:46)
[2017-04-01] MEDS: diazePAM 5 MG TABLET PO PRN ×4 (04:11→22:11)
[2017-04-01] MEDS: IBUPROFEN 400 MG TABLET (FP) PO PRN ×2 (04:11→17:32)
[2017-04-01] MEDS: CYCLOBENZAPRINE HCL 10 MG TABLET (FP) PO PRN ×2 (06:51→22:11)
[2017-04-01] MEDS: sitaGLIPtin PHOSPHATE 50 MG TABLET PO SCH (08:57)
[2017-04-01] MEDS: PRENATAL VITAMINS W/ FOLIC ACID TABLET (FP) PO SCH (10:17)
[2017-04-01 10:45] LABS: MCH 25.2 pg (25.7-33.7); MCHC 31.9 g/dl (32.0-36.0); MEAN PLT VOLUME 8.3 fl (7.5-11.1); PLATELET COUNT 273 K/MM3 (134-434); RDW 15.4 % (11.6-15.6); WHITE BLOOD COUNT 7.4 K/mm3 (4.0-10.0)
[2017-04-01] MEDS: OMEPRAZOLE PO SCH (11:00)
[2017-04-01] MEDS: PROPRANOLOL HCL 40 MG TABLET PO SCH (11:00)
[2017-04-01 11:02] LABS: ALBUMIN 3.5 g/dl (3.4-5.0); ALK PHOS 63 U/L (45-117); ANION GAP 10 (8-16); BILIRUBIN,TOTAL 0.6 mg/dL (0.2-1.0); CALCIUM 8.9 mg/dL (8.5-10.1); CO2 25 mmol/L (21-32); CREATININE 1.3 mg/dL (0.55-1.02); GLUCOSE,RANDOM 128 mg/dL (74-106); SGOT/AST 10 U/L (15-37); SGPT/ALT 16 U/L (12-78); TOT PROT 7.1 g/dl (6.4-8.2)
--- NOTE | 2017-04-01 12:03 | PN ---
BHS COWS - Scale Resting Pulse: 1= [place] 81-100 Sweatin= Chills/Flushing Restless Observation: 3= Extraneous Movement Pupil Size: 1= Pupils >than Normal Bone or Joint Aches: 2= Severe Diffuse Aches Runny Nose/ Eye Tearin= Runny Nose/Eyes GI Upset > 30mins: 2= Nausea/Diarrhea Tremor Observation of Outstretched Hands: 2= Slight Tremor Visible Yawning Observation: 1= 1-2x During Session Anxiety or Irritability: 2=Irritable/Anxious Goose Flesh Skin: 0=Smooth Skin COWS Score: 17 S Progress Note (SOAP) Subjective: alert,irritable,anxious,pain in the body,joint,back,interrupted sleep Objective: 04/01/17 12:02 Vital Signs Temperature 96.7 F L 04/01/17 11:57 Pulse Rate 88 04/01/17 11:57 Respiratory Rate 20 04/01/17 11:57 Blood Pressure 149/112 04/01/17 11:57 O2 Sat by Pulse Oximetry (%) ekg nsr,lvh,inverted t in 3,avf no chest pain,no sob,no dizziness Laboratory Last Values WBC 7.4 K/mm3 (4.0-10.0) 04/01/17 07:50 RBC 3.87 M/mm3 (3.60-5.2) 04/01/17 07:50 Hgb 9.8 GM/dL (10.7-15.3) L 04/01/17 07:50 Hct 30.6 % (32.4-45.2) L 04/01/17 07:50 MCV 79.0 fl (80-96) L 04/01/17 07:50 MCH 25.2 pg (25.7-33.7) L D 04/01/17 07:50 MCHC 31.9 g/dl (32.0-36.0) L 04/01/17 07:50 RDW 15.4 % (11.6-15.6) D 04/01/17 07:50 Plt Count 273 K/MM3 (134-434) 04/01/17 07:50 MPV 8.3 fl (7.5-11.1) D 04/01/17 07:50 Sodium 141 mmol/L (136-145) 04/01/17 07:50 Potassium 3.6 mmol/L (3.5-5.1) 04/01/17 07:50 Chloride 106 mmol/L (98-107) 04/01/17 07:50 Carbon Dioxide 25 mmol/L (21-32) 04/01/17 07:50 Anion Gap 10 (8-16) 04/01/17 07:50 BUN 15 mg/dL (7-18) D 04/01/17 07:50 Creatinine 1.3 mg/dL (0.55-1.02) H D 04/01/17 07:50 Creat Clearance w eGFR 42.22 (>60) 04/01/17 07:50 POC Glucometer 91 UNITS (()) 04/01/17 06:41 Random Glucose 128 mg/dL (74-106) H 04/01/17 07:50 Calcium 8.9 mg/dL (8.5-10.1) 04/01/17 07:50 Total Bilirubin 0.6 mg/dL (0.2-1.0) D 04/01/17 07:50 AST 10 U/L (15-37) L 04/01/17 07:50 ALT 16 U/L (12-78) D 04/01/17 07:50 Alkaline Phosphatase 63 U/L (45-117) D 04/01/17 07:50 Total Protein 7.1 g/dl (6.4-8.2) 04/01/17 07:50 Albumin 3.5 g/dl (3.4-5.0) 04/01/17 07:50 Assessment: 04/01/17 12:03 withdrawal symptom Plan: continue detox,ferrous sulfate 325 mgs po bid
--- NOTE | 2017-04-01 12:46 | CONSULT ---
[facility] Psychiatric Consult - Data Date of interview: 04/01/17 Admission source: [facility] Identifying data: First admission to [facility] for this 56 y/o AA female seeking detox treatment on for opiate dependence (percocet).Patient is ,a mother of four,domiciled,disabled and supported on SSI benefits. Substance Abuse History: Confirmed by the patient in this interview. Smoking Cessation. Smoking history: Never smoked. - Substance & Tx. History. Hx Alcohol Use: No. Hx Substance Use: Yes. Substance Use Type: Opiates. Hx Substance Use Treatment: No. - Substances Abused. percocet. Route: Oral. Frequency: Daily. Amount used: 40 mgs. Age of first use: 53. Date of Last Use : 03/30/17 Medical History: Significant for history of left hip replacement,GERD,diabetes mellitus,morbid obesity,osteoarthritis of both knees and hypertension.Patient ambulates with a cane. Psychiatric History: Diagnosed with MDD as per self-report.Ms Greenwood sees a private psychiatrist in [facility].Currently on seroquel 100 mg/hs.No reported history of psychiatric hospitalizations.Patient denies history of suicide attempts. Physical/Sexual Abuse/Trauma History: Patient denies. Additional Comment: Urine Drug Screen Results: OPI-Opiates, TCA-Tricyclic Antidepressant, OXY-Oxycodone.Noted. Mental Status Exam - Mental Status Exam Alert and Oriented to: Time, Place, Person Cognitive Function: Good Patient Appearance: Well Groomed (obese) Mood: Withdrawn, Anxious Affect: Mood Congruent Patient Behavior: Fatigued, Appropriate, Cooperative Speech Pattern: Clear Voice Loudness: Normal Thought Process: Goal Oriented Thought Disorder: Not Present Hallucinations: Denies Suicidal Ideation: Denies Homicidal Ideation: Denies Insight/Judgement: Fair Sleep: Poorly, Difficulty falling asleep Appetite: Good Gait/Station: Other (walks with cane) Psychiatric Findings - Problem List ([place] 1, 2,3) (1) Opioid dependence with withdrawal Current Visit: Yes Status: Acute (2) Mood disorder Current Visit: Yes Status: Chronic (3) DM2 (diabetes mellitus, type 2) Current Visit: Yes Status: Acute (4) Essential hypertension Current Visit: Yes Status: Acute (5) GERD (gastroesophageal reflux disease) Current Visit: Yes Status: Acute (6) History of anemia Current Visit: Yes Status: Chronic (7) Morbid obesity Current Visit: Yes Status: Chronic (8) Chronic pain Current Visit: Yes Status: Chronic Qualifiers: Chronic pain type: chronic pain syndrome Qualified Code(s): G89.4 - Chronic pain syndrome (9) Use of cane as ambulatory aid Current Visit: Yes Status: Chronic (10) Arthritis of left knee Current Visit: Yes Status: Chronic (11) Insomnia Current Visit: Yes Status: Acute - Initial Treatment Plan Initial Treatment Plan: Psychoeducation.Detoxification.Seroquel 100 mg po hs.Side effects/benefits discussed with the patient.She agrees to continue that medication.Observation.Pharmacy claims are reviewed.Noted scripts for venlafaxine 75 mg/day + celexa 40 mg/day + zolpidem 10 mg/hs dated 03/2017 at [facility].Patient aknowledges the scripts but declines to follow that regimen in this hospital course.
[2017-04-01 18:57] LABS: URINE APPEARANCE SLCLOUDY; URINE BILIRUBIN NEGATIVE (NEGATIVE); URINE BLOOD NEGATIVE (NEGATIVE); URINE COLOR LTYELLOW; URINE GLUCOSE (UA) NEGATIVE (NEGATIVE); URINE KETONE NEGATIVE (NEGATIVE); URINE NITRITE NEGATIVE (NEGATIVE); URINE PROTEIN NEGATIVE (NEGATIVE); URINE UROBILINOGEN NEGATIVE mg/dL (0.2-1.0)
[2017-04-01 19:02] LABS: URINE LEUK ESTERASE 2+ (NEGATIVE)
[2017-04-01 19:07] LABS: URINE BACTERIA RARE /hpf (NONE SEEN); URINE MUCUS RARE; URINE RBC 1 /hpf (0-3); URINE WBC 30 /hpf (3-5)
[2017-04-01] MEDS: ACETAMINOPHEN 325 MG TABLET (FP) PO PRN (20:40)
[2017-04-01] MEDS: MAG HYDROX/AL HYDROX/SIMETH 30 ML UNIT-DOSE CUP PO PRN (20:40)
[2017-04-01] MEDS ORDERED: ZOLPIDEM TARTRATE 5 MG TABLET PO PRN (22:01)
[2017-04-01] MEDS: FERROUS SO4 325 MG TABLET (FP) PO SCH (22:11)
[2017-04-01] MEDS: QUEtiapine FUMARATE 100 MG TABLET (FP) PO SCH (22:11)
[2017-04-01] MEDS: THIAMINE HCL 100 MG TABLET (FP) PO SCH (22:11)
[2017-04-02] MEDS: diazePAM 5 MG TABLET PO PRN ×4 (05:48→22:43)
[2017-04-02] MEDS: CYCLOBENZAPRINE HCL 10 MG TABLET (FP) PO PRN ×3 (05:48→22:42)
[2017-04-02] MEDS: IBUPROFEN 400 MG TABLET (FP) PO PRN ×2 (05:48→22:42)
[2017-04-02] MEDS: sitaGLIPtin PHOSPHATE 50 MG TABLET PO SCH (09:10)
--- NOTE | 2017-04-02 09:33 | PN ---
S CIWA - CIWA Score Nausea/Vomitin Muscle Tremors: 3 Anxiety: 3 Agitation: 2 Paroxysmal Sweats: 1-Minimal Palms Moist Orientation: 0-Oriented Tacttile Disturbances: 1-Very Mild Itch/Numbness Auditory Disturbances: 1-Very Mild Visual Disturbances: 1-Very Mild Sensitivity Headache: 2-Mild CIWA-Ar Total Score: 17 BHS COWS - Scale Resting Pulse: 1= [place] 81-100 Sweatin= Chills/Flushing Restless Observation: 3= Extraneous Movement Pupil Size: 1= Pupils >than Normal Bone or Joint Aches: 2= Severe Diffuse Aches Runny Nose/ Eye Tearin= Nasal Congestion GI Upset > 30mins: 2= Nausea/Diarrhea Tremor Observation of Outstretched Hands: 2= Slight Tremor Visible Yawning Observation: 1= 1-2x During Session Anxiety or Irritability: 2=Irritable/Anxious Goose Flesh Skin: 0=Smooth Skin COWS Score: 16 BHS Progress Note (SOAP) Subjective: ALERT,IRRITABLE,ANXIOUS,INTERRUPTED SLEEP,TREMOR,INTERRUPTED SLEEP Objective: 04/02/17 09:32 Vital Signs Temperature 97 F L 04/02/17 06:11 Pulse Rate 90 04/02/17 06:11 Respiratory Rate 20 04/02/17 06:11 Blood Pressure 126/91 04/02/17 06:11 O2 Sat by Pulse Oximetry (%) Laboratory Last Values WBC 7.4 K/mm3 (4.0-10.0) 04/01/17 07:50 RBC 3.87 M/mm3 (3.60-5.2) 04/01/17 07:50 Hgb 9.8 GM/dL (10.7-15.3) L 04/01/17 07:50 Hct 30.6 % (32.4-45.2) L 04/01/17 07:50 MCV 79.0 fl (80-96) L 04/01/17 07:50 MCH 25.2 pg (25.7-33.7) L D 04/01/17 07:50 MCHC 31.9 g/dl (32.0-36.0) L 04/01/17 07:50 RDW 15.4 % (11.6-15.6) D 04/01/17 07:50 Plt Count 273 K/MM3 (134-434) 04/01/17 07:50 MPV 8.3 fl (7.5-11.1) D 04/01/17 07:50 Sodium 141 mmol/L (136-145) 04/01/17 07:50 Potassium 3.6 mmol/L (3.5-5.1) 04/01/17 07:50 Chloride 106 mmol/L (98-107) 04/01/17 07:50 Carbon Dioxide 25 mmol/L (21-32) 04/01/17 07:50 Anion Gap 10 (8-16) 04/01/17 07:50 BUN 15 mg/dL (7-18) D 04/01/17 07:50 Creatinine 1.3 mg/dL (0.55-1.02) H D 04/01/17 07:50 Creat Clearance w eGFR 42.22 (>60) 04/01/17 07:50 POC Glucometer 84 UNITS (()) 04/02/17 05:45 Random Glucose 128 mg/dL (74-106) H 04/01/17 07:50 Calcium 8.9 mg/dL (8.5-10.1) 04/01/17 07:50 Total Bilirubin 0.6 mg/dL (0.2-1.0) D 04/01/17 07:50 AST 10 U/L (15-37) L 04/01/17 07:50 ALT 16 U/L (12-78) D 04/01/17 07:50 Alkaline Phosphatase 63 U/L (45-117) D 04/01/17 07:50 Total Protein 7.1 g/dl (6.4-8.2) 04/01/17 07:50 Albumin 3.5 g/dl (3.4-5.0) 04/01/17 07:50 Urine Color Ltyellow 04/01/17 09:03 Urine Appearance Slcloudy 04/01/17 09:03 Urine pH 5.0 (5.0-8.0) 04/01/17 09:03 Ur Specific [place] 1.010 (1.005-1.025) 04/01/17 09:03 Urine Protein Negative (NEGATIVE) 04/01/17 09:03 Urine Glucose (UA) Negative (NEGATIVE) 04/01/17 09:03 Urine Ketones Negative (NEGATIVE) 04/01/17 09:03 Urine Blood Negative (NEGATIVE) 04/01/17 09:03 Urine Nitrite Negative (NEGATIVE) 04/01/17 09:03 Urine Bilirubin Negative (NEGATIVE) 04/01/17 09:03 Urine Urobilinogen Negative mg/dL (0.2-1.0) 04/01/17 09:03 Ur Leukocyte Esterase 2+ (NEGATIVE) H 04/01/17 09:03 Urine RBC 1 /hpf (0-3) 04/01/17 09:03 Urine WBC 30 /hpf (3-5) 04/01/17 09:03 Ur Epithelial Cells Few /hpf (FEW) 04/01/17 09:03 Urine Bacteria Rare /hpf (NONE SEEN) 04/01/17 09:03 Urine Mucus Rare 04/01/17 09:03 RPR Titer Nonreactive (NONREACTIVE) 04/01/17 07:50 04/02/17 09:34 Assessment: 04/02/17 09:34 WITHDRAWAL SYMPTOM Plan: CONTINUE DETOX,REPEAT UA ,ENCOURAGE ORAL FLUID
[2017-04-02] MEDS ORDERED: METHADONE HCL 10 MG TABLET (FOR DETOX USE ONLY) PO ONE (10:00)
[2017-04-02] MEDS: FERROUS SO4 325 MG TABLET (FP) PO SCH ×2 (10:15→22:42)
[2017-04-02] MEDS: PRENATAL VITAMINS W/ FOLIC ACID TABLET (FP) PO SCH (10:30)
[2017-04-02] MEDS: OMEPRAZOLE PO SCH (10:30)
[2017-04-02] MEDS: cloNIDine HCL 0.1 MG TABLET PO SCH ×2 (10:30→22:42)
[2017-04-02] MEDS: MAG HYDROX/AL HYDROX/SIMETH 30 ML UNIT-DOSE CUP PO PRN (10:34)
[2017-04-02] MEDS: PROPRANOLOL HCL 40 MG TABLET PO SCH (13:08)
[2017-04-02] MEDS: CITALOPRAM HYDROBROMIDE 40 MG TABLET PO SCH (14:47)
[2017-04-02] MEDS: VENLAFAXINE HCL 75 MG TABLET PO SCH (14:47)
[2017-04-02] MEDS: ACETAMINOPHEN 325 MG TABLET (FP) PO PRN (17:31)
--- NOTE | 2017-04-02 22:24 | EKG ---
Test Reason : Blood Pressure : / mmHG Vent. Rate : 082 BPM Atrial Rate : 082 BPM P-R Int : 180 ms QRS Dur : 094 ms QT Int : 370 ms P-R-T Axes : 062 009 -22 degrees QTc Int : 432 ms SINUS RHYTHM WITH OCCASIONAL PREMATURE VENTRICULAR COMPLEXES VOLTAGE CRITERIA FOR LEFT VENTRICULAR HYPERTROPHY NONSPECIFIC T WAVE ABNORMALITY INFEROLATERAL LEADS ABNORMAL ECG WHEN COMPARED WITH ECG OF 04-APR-2016 11:03, NO SIGNIFICANT CHANGE WAS FOUND Confirmed by SHADI GARCIA MD ([id number]) on 04/02/2017 10:24:27 PM Referred By: Confirmed By:SHADI GARCIA MD
[2017-04-02] MEDS: QUEtiapine FUMARATE 100 MG TABLET (FP) PO SCH (22:43)
[2017-04-02] MEDS: THIAMINE HCL 100 MG TABLET (FP) PO SCH (22:43)
[2017-04-03] MEDS: CYCLOBENZAPRINE HCL 10 MG TABLET (FP) PO PRN ×2 (06:03→22:43)
[2017-04-03] MEDS: IBUPROFEN 400 MG TABLET (FP) PO PRN (06:03)
[2017-04-03] MEDS: diazePAM 5 MG TABLET PO PRN ×2 (06:03→10:53)
[2017-04-03] MEDS: sitaGLIPtin PHOSPHATE 50 MG TABLET PO SCH (06:05)
[2017-04-03] MEDS ORDERED: METHADONE HCL 5 MG TABLET (FOR DETOX USE ONLY) PO ONE (10:00)
[2017-04-03] MEDS: PRENATAL VITAMINS W/ FOLIC ACID TABLET (FP) PO SCH (10:49)
[2017-04-03] MEDS: FERROUS SO4 325 MG TABLET (FP) PO SCH ×2 (10:49→22:43)
[2017-04-03] MEDS: cloNIDine HCL 0.1 MG TABLET PO SCH ×2 (10:49→22:43)
[2017-04-03] MEDS: CITALOPRAM HYDROBROMIDE 40 MG TABLET PO SCH (10:50)
[2017-04-03] MEDS: OMEPRAZOLE PO SCH (10:50)
[2017-04-03] MEDS: ACETAMINOPHEN 325 MG TABLET (FP) PO PRN (10:53)
[2017-04-03] MEDS ORDERED: PROPRANOLOL HCL 20 MG TABLET PO SCH (11:02)
--- NOTE | 2017-04-03 11:38 | PN ---
BHS Progress Note (SOAP) Subjective: chronic knee pain sweats agitation body aches interrupted sleep Objective: 04/03/17 11:37 Vital Signs Temperature 98.1 F 04/03/17 10:00 Pulse Rate 83 04/03/17 10:00 Respiratory Rate 18 04/03/17 10:00 Blood Pressure 139/88 04/03/17 10:00 O2 Sat by Pulse Oximetry (%) Laboratory Tests 04/01/17 04/01/17 04/01/17 06:41 07:50 07:50 WBC 7.4 RBC 3.87 Hgb 9.8 L Hct 30.6 L MCV 79.0 L MCH 25.2 L D MCHC 31.9 L RDW 15.4 D Plt Count 273 MPV 8.3 D Sodium 141 Potassium 3.6 Chloride 106 Carbon Dioxide 25 Anion Gap 10 BUN 15 D Creatinine 1.3 H D Creat Clearance w eGFR 42.22 POC Glucometer 91 Random Glucose 128 H Calcium 8.9 Total Bilirubin 0.6 D AST 10 L ALT 16 D Alkaline Phosphatase 63 D Total Protein 7.1 Albumin 3.5 Urine Color Urine Appearance Urine pH Ur Specific [place] Urine Protein Urine Glucose (UA) Urine Ketones Urine Blood Urine Nitrite Urine Bilirubin Urine Urobilinogen Ur Leukocyte Esterase Urine RBC Urine WBC Ur Epithelial Cells Urine Bacteria Urine Mucus RPR Titer 04/01/17 04/01/17 04/01/17 07:50 09:03 16:30 WBC RBC Hgb Hct MCV MCH MCHC RDW Plt Count MPV Sodium Potassium Chloride Carbon Dioxide Anion Gap BUN Creatinine Creat Clearance w eGFR POC Glucometer 141 Random Glucose Calcium Total Bilirubin AST ALT Alkaline Phosphatase Total Protein Albumin Urine Color Ltyellow Urine Appearance Slcloudy Urine pH 5.0 Ur Specific [place] 1.010 Urine Protein Negative Urine Glucose (UA) Negative Urine Ketones Negative Urine Blood Negative Urine Nitrite Negative Urine Bilirubin Negative Urine Urobilinogen Negative Ur Leukocyte Esterase 2+ H Urine RBC 1 Urine WBC 30 Ur Epithelial Cells Few Urine Bacteria Rare Urine Mucus Rare RPR Titer Nonreactive 04/02/17 04/02/17 04/03/17 05:45 16:33 06:02 WBC RBC Hgb Hct MCV MCH MCHC RDW Plt Count MPV Sodium Potassium Chloride Carbon Dioxide Anion Gap BUN Creatinine Creat Clearance w eGFR POC Glucometer 84 273 95 Random Glucose Calcium Total Bilirubin AST ALT Alkaline Phosphatase Total Protein Albumin Urine Color Urine Appearance Urine pH Ur Specific [place] Urine Protein Urine Glucose (UA) Urine Ketones Urine Blood Urine Nitrite Urine Bilirubin Urine Urobilinogen Ur Leukocyte Esterase Urine RBC Urine WBC Ur Epithelial Cells Urine Bacteria Urine Mucus RPR Titer awake/alert ambulating no acute distress Assessment: 04/03/17 11:37 withdrawal sx Plan: continue detox increase fluids motrin/tylenol prn analgesic balm
[2017-04-03] MEDS: VENLAFAXINE HCL 75 MG TABLET PO SCH (13:02)
[2017-04-03] MEDS: METHYL SALICYLATE/MENTHOL OINT 30 GM TUBE TP SCH ×2 (13:03→22:55)
[2017-04-03] MEDS: PROPRANOLOL HCL 20 MG TABLET PO SCH (13:03)
[2017-04-03] MEDS: PROPRANOLOL HCL 40 MG TABLET PO SCH (13:24)
--- NOTE | 2017-04-03 13:29 | PN ---
Psychiatric Progress Note Vital Signs: Vital Signs Period Temp Pulse Resp BP Sys/Vilchis Pulse Ox Last 24 Hr 97.7 F-98.3 F 71-103 18-20 132-140/77-104 Date of Session: 04/03/17 Chief Complaint:: Patoent reports insomnia and pain managenet referral upon discharge HPI: Patoent reports insomnia and pain managenet referral upon discharge, patient reports taking prior to admission Ambien 10mg po qhs with good response Current Medications: Active Medications Generic Name Dose Route Start Last Admin Trade Name Freq PRN Reason Stop Dose Admin Acetaminophen 650 mg 04/01/17 02:46 04/03/17 10:53 Tylenol - PO 650 mg Q4H PRN Administration FEVER OR PAIN Al Hydroxide/Mg Hydroxide 30 ml 04/01/17 02:46 04/02/17 10:34 Mylanta Oral Suspension - PO 30 ml Q6H PRN Administration DYSPEPSIA Citalopram Hydrobromide 40 mg 04/02/17 10:00 04/03/17 10:50 Celexa - PO 40 mg DAILY EMILI Administration Clonidine 0.1 mg 04/02/17 10:00 04/03/17 10:49 Catapres - PO 0.1 mg BID EMILI Administration Cyclobenzaprine HCl 10 mg 04/01/17 02:59 04/03/17 06:03 Flexeril - PO 10 mg TID PRN Administration MUSCLE SPASMS Diazepam 10 mg 04/01/17 02:46 04/03/17 10:53 Valium - PO 04/04/17 02:45 10 mg Q4H PRN Administration WITHDRAWAL(CONT SUBST) Diphenhydramine HCl 50 mg 04/01/17 02:46 Benadryl - PO HSMR1 PRN INSOMNIA Eucalyptus/Menthol/Phenol/Sorbitol 1 each 04/01/17 02:46 Cepastat Lozenge - MM Q4H PRN SORE THROAT Ferrous Sulfate 325 mg 04/01/17 22:00 04/03/17 10:49 Feosol - PO 325 mg BID EMILI Administration Guaifenesin 10 ml 04/01/17 02:46 Robitussin Dm - PO Q6H PRN COUGH Ibuprofen 800 mg 04/01/17 02:58 04/03/17 06:03 Motrin - PO 800 mg Q8H PRN Administration PAIN Loperamide HCl 4 mg 04/01/17 02:46 Imodium - PO Q6H PRN DIARRHEA Magnesium Citrate 300 ml 04/01/17 02:46 Citroma - PO Q48H PRN CONSTIPATION Magnesium Hydroxide 30 ml 04/01/17 02:46 Milk Of Magnesia - PO DAILY PRN CONSTIPATION Methadone HCl 10 mg 04/05/17 10:00 Dolophine - PO 04/05/17 10:01 ONCE ONE Methadone HCl 15 mg 04/04/17 10:00 Dolophine - PO 04/04/17 10:01 ONCE ONE Methadone HCl 5 mg 04/06/17 06:00 Dolophine - PO 04/06/17 06:01 ONCE@0600 ONE Methyl Salicylate 1 applic 04/03/17 13:00 04/03/17 13:03 Brain-Izaguirre - TP 1 applic BID EMILI Administration Non-Formulary Medication 0 cap 04/01/17 10:00 04/03/17 10:50 Omepazole PO 1 cap DAILY EMILI Administration Multivit/Folic Acid/Iron 1 tab 04/01/17 10:00 04/03/17 10:49 Vitamins (Sjr) - PO 1 tab DAILY EMILI Administration Propranolol HCl 60 mg 04/03/17 11:30 04/03/17 13:03 Inderal - PO 60 mg DAILY EMILI Administration Pseudoephedrine/Triprolidine 1 combo 04/01/17 02:46 Actifed - PO TID PRN NASAL CONGESTION Quetiapine Fumarate 100 mg 04/01/17 22:00 04/02/17 22:43 Seroquel - PO 100 mg HS [facility] Administration Sitagliptin Phosphate 50 mg 04/01/17 07:00 04/03/17 06:05 Januvia - PO 50 mg DAILY@0700 EMILI Administration Thiamine HCl 100 mg 04/01/17 22:00 04/02/17 22:43 Vitamin B1 - PO 100 mg HS [facility] Administration Venlafaxine HCl 75 mg 04/02/17 10:00 04/03/17 13:02 Effexor - PO 75 mg DAILY EMILI Administration Zolpidem Tartrate 10 mg 04/03/17 22:00 Ambien - PO HS [facility] Medication(s) Change(s): Ambien 10mg po qhs Mental Status Exam - Mental Status Exam Alert and Oriented to: Place, Person Cognitive Function: Fair Patient Appearance: Unkempt Mood: Anxious Affect: Mood Congruent Patient Behavior: Guarded, Talkative, Cooperative Speech Pattern: Aphasic Voice Loudness: Mildly Loud Thought Process: Goal Oriented Thought Disorder: Being Controlled Hallucinations: Denies Suicidal Ideation: Denies Homicidal Ideation: Denies Insight/Judgement: Fair Sleep: Difficulty falling asleep Appetite: Weight gain Muscle strength/Tone: Mild Hypotonicity Gait/Station: Antalgic Additional Comments: Ambien 10mg po qhs Psychiatric Treatment Plan - Problem List (1) Depression Current Visit: Yes (2) Opioid dependence with withdrawal Current Visit: Yes (3) Mood disorder Current Visit: Yes (4) Morbid obesity Current Visit: Yes (5) Use of cane as ambulatory aid Current Visit: Yes (6) Muscle spasm Current Visit: No (7) Drug-induced mood disorder Current Visit: Yes Initial treatment plan: Ambien 10mg po qhs
[2017-04-03] MEDS: ZOLPIDEM TARTRATE 10 MG TABLET (PARK CARE ONLY) PO PRN (22:43)
[2017-04-03] MEDS: QUEtiapine FUMARATE 100 MG TABLET (FP) PO SCH (22:43)
[2017-04-03] MEDS: THIAMINE HCL 100 MG TABLET (FP) PO SCH (22:43)
[2017-04-04] MEDS: MAG HYDROX/AL HYDROX/SIMETH 30 ML UNIT-DOSE CUP PO PRN ×2 (06:15→14:52)
[2017-04-04] MEDS: IBUPROFEN 400 MG TABLET (FP) PO PRN ×2 (06:16→22:34)
[2017-04-04] MEDS: CYCLOBENZAPRINE HCL 10 MG TABLET (FP) PO PRN (06:16)
[2017-04-04] MEDS: hydrOXYzine PAMOATE 50 MG CAPSULE (FP) PO PRN ×2 (07:20→11:26)
[2017-04-04] MEDS: sitaGLIPtin PHOSPHATE 50 MG TABLET PO SCH (09:14)
[2017-04-04] MEDS ORDERED: METHADONE HCL 5 MG TABLET (FOR DETOX USE ONLY) PO ONE (10:00)
[2017-04-04] MEDS: PRENATAL VITAMINS W/ FOLIC ACID TABLET (FP) PO SCH (10:17)
[2017-04-04] MEDS: CITALOPRAM HYDROBROMIDE 40 MG TABLET PO SCH (10:18)
[2017-04-04] MEDS: OMEPRAZOLE PO SCH (10:19)
[2017-04-04] MEDS: PROPRANOLOL HCL 20 MG TABLET PO SCH (10:19)
[2017-04-04] MEDS: FERROUS SO4 325 MG TABLET (FP) PO SCH ×2 (10:20→22:33)
[2017-04-04] MEDS: VENLAFAXINE HCL 75 MG TABLET PO SCH (10:20)
[2017-04-04] MEDS: cloNIDine HCL 0.1 MG TABLET PO SCH ×2 (10:21→22:33)
[2017-04-04] MEDS: METHYL SALICYLATE/MENTHOL OINT 30 GM TUBE TP SCH ×2 (10:29→22:33)
--- NOTE | 2017-04-04 12:07 | PN ---
BHS Progress Note (SOAP) Subjective: body aches sweats interrupted sleep Objective: 04/04/17 12:06 Vital Signs Temperature 96.6 F L 04/04/17 10:35 Pulse Rate 72 04/04/17 10:35 Respiratory Rate 18 04/04/17 10:35 Blood Pressure 138/77 04/04/17 10:35 O2 Sat by Pulse Oximetry (%) awake/alert ambulating no acute distress Assessment: 04/04/17 12:07 withdrawal sx Plan: continue detox increase fluids
[2017-04-04] MEDS: ACETAMINOPHEN 325 MG TABLET (FP) PO PRN (12:32)
[2017-04-04] MEDS: QUEtiapine FUMARATE 100 MG TABLET (FP) PO SCH (22:33)
[2017-04-04] MEDS: ZOLPIDEM TARTRATE 10 MG TABLET (PARK CARE ONLY) PO PRN (22:33)
[2017-04-04] MEDS: THIAMINE HCL 100 MG TABLET (FP) PO SCH (22:33)
[2017-04-05] MEDS ORDERED: METHADONE HCL 10 MG TABLET (FOR DETOX USE ONLY) PO ONE (10:00)
[2017-04-05] MEDS: CYCLOBENZAPRINE HCL 10 MG TABLET (FP) PO PRN ×2 (10:56→22:35)
[2017-04-05] MEDS: METHYL SALICYLATE/MENTHOL OINT 30 GM TUBE TP SCH ×2 (10:56→22:34)
[2017-04-05] MEDS: sitaGLIPtin PHOSPHATE 50 MG TABLET PO SCH (10:56)
[2017-04-05] MEDS: FERROUS SO4 325 MG TABLET (FP) PO SCH ×2 (10:56→22:35)
[2017-04-05] MEDS: PRENATAL VITAMINS W/ FOLIC ACID TABLET (FP) PO SCH (10:56)
[2017-04-05] MEDS: cloNIDine HCL 0.1 MG TABLET PO SCH ×2 (10:56→22:35)
[2017-04-05] MEDS: CITALOPRAM HYDROBROMIDE 40 MG TABLET PO SCH (10:56)
[2017-04-05] MEDS: VENLAFAXINE HCL 75 MG TABLET PO SCH (10:57)
[2017-04-05] MEDS: OMEPRAZOLE PO SCH (10:57)
[2017-04-05] MEDS: PROPRANOLOL HCL 20 MG TABLET PO SCH (10:57)
[2017-04-05] MEDS: hydrOXYzine PAMOATE 50 MG CAPSULE (FP) PO PRN (10:59)
--- NOTE | 2017-04-05 11:50 | PN ---
BHS Progress Note (SOAP) Subjective: chronic knee pain sweats agitation Objective: 04/05/17 11:49 Vital Signs Temperature 98.2 F 04/05/17 10:22 Pulse Rate 89 04/05/17 10:22 Respiratory Rate 20 04/05/17 10:22 Blood Pressure 143/93 04/05/17 10:22 O2 Sat by Pulse Oximetry (%) awake/alert ambulating no acute distress Assessment: 04/05/17 11:50 withdrawal sx Plan: continue detox increase fluids motrin prn d/c in am
[2017-04-05] MEDS: MAG HYDROX/AL HYDROX/SIMETH 30 ML UNIT-DOSE CUP PO PRN (13:48)
[2017-04-05 16:55] LABS: URINE APPEARANCE CLOUDY; URINE BILIRUBIN NEGATIVE (NEGATIVE); URINE BLOOD NEGATIVE (NEGATIVE); URINE COLOR AMBER; URINE GLUCOSE (UA) NEGATIVE (NEGATIVE); URINE KETONE NEGATIVE (NEGATIVE); URINE LEUK ESTERASE 3+ (NEGATIVE); URINE NITRITE NEGATIVE (NEGATIVE); URINE PROTEIN 1+ (NEGATIVE); URINE UROBILINOGEN NEGATIVE mg/dL (0.2-1.0)
[2017-04-05 17:09] LABS: URINE MUCUS RARE; URINE RBC 1 /hpf (0-3); URINE WBC 17 /hpf (3-5)
[2017-04-05] MEDS: IBUPROFEN 400 MG TABLET (FP) PO PRN (20:00)
[2017-04-05] MEDS: ZOLPIDEM TARTRATE 10 MG TABLET (PARK CARE ONLY) PO PRN (22:34)
[2017-04-05] MEDS: QUEtiapine FUMARATE 100 MG TABLET (FP) PO SCH (22:35)
[2017-04-05] MEDS: THIAMINE HCL 100 MG TABLET (FP) PO SCH (22:36)
[2017-04-06] MEDS: hydrOXYzine PAMOATE 50 MG CAPSULE (FP) PO PRN ×2 (05:59→10:49)
[2017-04-06] MEDS: IBUPROFEN 400 MG TABLET (FP) PO PRN (05:59)
[2017-04-06] MEDS: CYCLOBENZAPRINE HCL 10 MG TABLET (FP) PO PRN (05:59)
[2017-04-06] MEDS ORDERED: METHADONE HCL 5 MG TABLET (FOR DETOX USE ONLY) PO ONE (06:00)
[2017-04-06] MEDS: sitaGLIPtin PHOSPHATE 50 MG TABLET PO SCH (08:00)
--- NOTE | 2017-04-06 08:31 | DS ---
[facility] Detox Discharge Summary Admission Date: 04/01/17 Discharge Date: 04/06/17 - History Present History: Opioid Dependence - Physical Exam Results Vital Signs: Vital Signs Temperature 96.8 F L 04/06/17 06:58 Pulse Rate 87 04/06/17 06:58 Respiratory Rate 18 04/06/17 06:58 Blood Pressure 131/87 04/06/17 06:58 O2 Sat by Pulse Oximetry (%) - Treatment Hospital Course: Detox Protocol Followed, Detoxed Safely, Responded well, Discharged Condition Good, Rehab Referral Accepted - Medication Discharge Medications: Ambulatory Orders Aspirin [Ecotrin] 81 mg PO DAILY 03/24/16 Losartan/Hydrochlorothiazide [Losartan-Hctz 100-25 mg Tab] 1 each PO DAILY 03/24 Omeprazole [Prilosec] 40 mg PO DAILY 03/24/16 Quetiapine Fumarate [Seroquel] 100 tab PO DAILY 03/24/16 Sitagliptin Phosphate [Januvia] 10 mg PO DAILY 03/24/16 Zolpidem Tartrate 5 mg PO HS 03/24/16 Gabapentin [Neurontin] 300 mg PO TID #30 capsule 01/30/17 Citalopram Hydrobromide [Celexa -] 40 mg PO DAILY #30 tablet 04/01/17 Quetiapine Fumarate [Seroquel] 100 mg PO HS #30 tablet 04/01/17 Venlafaxine HCl ER [Effexor Xr -] 75 mg PO DAILY #30 cap.er.24h 04/01/17 Zolpidem Tartrate [Ambien] 10 mg PO HS #14 tablet MDD 10 04/01/17 Zolpidem Tartrate [Ambien] 0 mg PO HS #14 tablet MDD 10 04/03/17 - Diagnosis (1) DM2 (diabetes mellitus, type 2) Current Visit: Yes Status: Chronic Qualifiers: Diabetes mellitus complication status: without complication (2) Depression Current Visit: Yes Status: Chronic (3) Drug-induced mood disorder Current Visit: Yes Status: Acute (4) Essential hypertension Current Visit: Yes Status: Chronic (5) GERD (gastroesophageal reflux disease) Current Visit: Yes Status: Chronic Qualifiers: Esophagitis presence: without esophagitis Qualified Code(s): K21.9 - Gastro-esophageal reflux disease without esophagitis (6) Insomnia Current Visit: Yes Status: Chronic (7) Opioid dependence with withdrawal Current Visit: Yes Status: Chronic (8) Arthritis of left knee Current Visit: Yes Status: Chronic (9) Chronic pain Current Visit: Yes Status: Chronic Qualifiers: Chronic pain type: chronic pain syndrome Qualified Code(s): G89.4 - Chronic pain syndrome (10) History of anemia Current Visit: Yes Status: Chronic (11) Mood disorder Current Visit: Yes Status: Chronic (12) Morbid obesity Current Visit: Yes Status: Chronic (13) Use of cane as ambulatory aid Current Visit: Yes Status: Chronic (14) Bleeding from varicose vein Current Visit: No Status: Acute (15) Bronchitis Current Visit: No Status: Acute (16) Fall Current Visit: No Status: Acute Qualifiers: Encounter type: initial encounter Qualified Code(s): W19.XXXA - Unspecified fall, initial encounter (17) Knee pain, left Current Visit: No Status: Acute Qualifiers: Chronicity: acute Qualified Code(s): M25.562 - Pain in left knee (18) Left anterior knee pain Current Visit: No Status: Acute (19) Muscle spasm Current Visit: No Status: Acute (20) UTI (urinary tract infection) Current Visit: No Status: Acute (21) Varicose vein of leg Current Visit: No Status: Acute (22) Weakness Current Visit: No Status: Acute - AMA Did Patient Leave Against Medical Advice: No
[2017-04-06 09:43] VITALS: BP 164/86; PULSE 78; TEMP 98.1
[2017-04-06] MEDS: cloNIDine HCL 0.1 MG TABLET PO SCH (10:46)
[2017-04-06] MEDS: OMEPRAZOLE PO SCH (10:46)
[2017-04-06] MEDS: PROPRANOLOL HCL 20 MG TABLET PO SCH (10:46)
[2017-04-06] MEDS: PRENATAL VITAMINS W/ FOLIC ACID TABLET (FP) PO SCH (10:46)
[2017-04-06] MEDS: CITALOPRAM HYDROBROMIDE 40 MG TABLET PO SCH (10:46)
[2017-04-06] MEDS: VENLAFAXINE HCL 75 MG TABLET PO SCH (10:46)
[2017-04-06] MEDS: FERROUS SO4 325 MG TABLET (FP) PO SCH (10:46)
[2017-04-06] MEDS: METHYL SALICYLATE/MENTHOL OINT 30 GM TUBE TP SCH (10:48)
[2017-04-06] MEDS: MAG HYDROX/AL HYDROX/SIMETH 30 ML UNIT-DOSE CUP PO PRN (10:59)
== END 2017-04-06 11:16 | disposition home or self-care (01) | DRG 897 ==
LOC: YASAS 01:10 → Y6N 02:33
PROVIDERS: ADMIT Internal Medicine Addiction Medicine; ATTEND Internal Medicine Addiction Medicine
PROC: HZ2ZZZZ Detoxification Services for Substance Abuse Treatment (ICD-10-PCS; principal; 2017-04-01)
DX: F11.23 Opioid dependence with withdrawal (principal); Z68.41 Body mass index [BMI] 40.0-44.9, adult; N39.0 Urinary tract infection, site not specified; F19.24 Other psychoactive substance dependence with psychoactive substance-induced mood disorder; F32.9 Major depressive disorder, single episode, unspecified; F39 Unspecified mood [affective] disorder; E11.9 Type 2 diabetes mellitus without complications; I10 Essential (primary) hypertension; K21.9 Gastro-esophageal reflux disease without esophagitis; G47.00 Insomnia, unspecified; G89.29 Other chronic pain; E66.01 Morbid (severe) obesity due to excess calories; R26.2 Difficulty in walking, not elsewhere classified; Z99.89 Dependence on other enabling machines and devices; I86.8 Varicose veins of other specified sites; Z86.2 Personal history of diseases of the blood and blood-forming organs and certain disorders involving the immune mechanism; M17.0 Bilateral primary osteoarthritis of knee; M25.562 Pain in left knee; M62.838 Other muscle spasm; R53.1 Weakness
CPT/HCPCS: 36415; 80053; 81003; 81015; 85027; 86593; 93005; 93010

== ENCOUNTER 2017-08-03 17:36 | Observation (INO) | payer OTHER ==
--- NOTE | 2017-08-03 18:08 | PDOC ---
History of Present Illness - General History Source: Patient Exam Limitations: No Limitations - History of Present Illness Initial Comments: 08/03/17 19:51 Patient is a 56 year old female with a significant past medical history of HTN, Reflux, Depression, who presents to the ED with complaints of nausea/vomiting that began this afternoon. Patient reports experiencing intermittent episodes of vomiting that began suddenly this afternoon while at home. She reports experiencing diarrhea but is unsure if it is connected to her vomiting. Patient reports taking 10 mg of Oxycodone and states she experiences symptoms similar to these when she is in withdrawal from her medication. She reports experiencing dizziness when standing up but denies any dizziness when lying down. Patient states she received her flu shot last month and is wondering if it is related to her symptoms. Patient states she is currently menopausal. Denies chest pain, SOB. Denies fever, coughing. Denies contact with sick individuals, out of state travelling. Denies any other symptoms. Allergies: None Social history: No smoking. No alcohol. No illicit drugs. Surgical history: None PMD: None <Tim Way - Last Filed: 08/03/17 19:51> <Jose F Lee - Last Filed: 08/03/17 23:52> - General Chief Complaint: Lightheaded Stated Complaint: Nausea/Vomiting Time Seen by Provider: 08/03/17 17:42 Past History <Tim Way - Last Filed: 08/03/17 19:51> - Past Medical History Anemia: No Asthma: No Cancer: No Cardiac Disorders: No CVA: No COPD: No CHF: No Dementia: No Diabetes: Yes GI Disorders: Yes (REFLUX) Disorders: No HTN: Yes (on med) Hypercholesterolemia: No Liver Disease: No Seizures: No Thyroid Disease: No - Immunization History Immunization Up to Date: Yes - Suicide/Smoking/Psychosocial Hx Smoking History: Never smoked Have you smoked in the past 12 months: No Information on smoking cessation initiated: No Hx Alcohol Use: No Drug/Substance Use Hx: No Substance Use Type: None Hx Substance Use Treatment: No <Jose F Lee - Last Filed: 08/03/17 23:52> - Past Medical History Allergies/Adverse Reactions: Allergies Allergy/AdvReac Type Severity Reaction Status Date / Time No Known Allergies Allergy Verified 08/03/17 17:41 Home Medications: Ambulatory Orders Aspirin [Ecotrin] 81 mg PO DAILY 03/24/16 Losartan/Hydrochlorothiazide [Losartan-Hctz 100-25 mg Tab] 1 each PO DAILY 03/24 Omeprazole [Prilosec] 40 mg PO DAILY 03/24/16 Quetiapine Fumarate [Seroquel] 100 tab PO DAILY 03/24/16 Sitagliptin Phosphate [Januvia] 10 mg PO DAILY 03/24/16 Zolpidem Tartrate 5 mg PO HS 03/24/16 Gabapentin [Neurontin] 300 mg PO TID #30 capsule 01/30/17 Citalopram Hydrobromide [Celexa -] 40 mg PO DAILY #30 tablet 04/01/17 Quetiapine Fumarate [Seroquel] 100 mg PO HS #30 tablet 04/01/17 Venlafaxine HCl ER [Effexor Xr -] 75 mg PO DAILY #30 cap.er.24h 04/01/17 Zolpidem Tartrate [Ambien] 10 mg PO HS #14 tablet MDD 10 04/01/17 Zolpidem Tartrate [Ambien] 0 mg PO HS #14 tablet MDD 10 04/03/17 Unobtainable 08/03/17 Review of Systems - Review of Systems Constitutional: No: Chills, Fever Respiratory: No: Shortness of Breath Cardiac (ROS): No: Chest Pain ABD/GI: Yes: Diarrhea, Nausea, Vomiting. No: Blood Streaked Bowels : No: Dysuria Musculoskeletal: Yes: Joint Pain (chronic L knee pain) All Other Systems: Reviewed and Negative <Jose F Lee - Last Filed: 08/03/17 23:52> *Physical Exam - Vital Signs Last Vital Signs Temp Pulse Resp BP Pulse Ox 98.2 F 86 20 151/92 100 08/03/17 17:55 08/03/17 17:55 08/03/17 17:55 08/03/17 17:55 08/03/17 17:55 - Physical Exam Comments: 08/03/17 19:51 GENERAL: The patient is awake, alert, and fully oriented, in no acute distress. HEAD: Normal with no signs of trauma. EYES: Pupils equal, round and reactive to light, extraocular movements intact, sclera anicteric, conjunctiva clear with no pallor. ENT: +Dry Mucosa. Ears normal, nares patent, oropharynx clear without exudates. NECK: Normal range of motion, supple without lymphadenopathy, JVD, or masses. LUNGS: Breath sounds equal, clear to auscultation bilaterally. No wheeze/ crackles. HEART: Regular rate and rhythm, normal S1 and S2 without murmur or rub. ABDOMEN: +Epigastric discomfort. Soft/nontender/nondistended. BS wnl. No guarding or rebound. No palpable masses. No hepatosplenomegaly. EXTREMITIES: Normal range of motion, no edema. No clubbing or cyanosis. No cords, erythema, or tenderness. NEUROLOGICAL: Cranial nerves II through XII grossly intact. Normal speech, PSYCH: Normal mood, normal affect. SKIN: Warm, Dry, normal turgor, no rashes or lesions noted. <Tim Way - Last Filed: 08/03/17 19:51> - Vital Signs Last Vital Signs Temp Pulse Resp BP Pulse Ox 98.2 F 86 20 151/92 100 08/03/17 17:55 08/03/17 17:55 08/03/17 17:55 08/03/17 17:55 08/03/17 17:55 <Jose F Lee - Last Filed: 08/03/17 23:52> Heart Score/ECG Review #1 ECG reviewed & interpreted by me at: 22:57 General ECG Interpretation: Sinus Rhythm, Normal Rate (93), Normal Intervals ( LVH), No acute ischemic changes (nonspecific T wave changes laterally, ? strain pattern) <Jose F Lee - Last Filed: 08/03/17 23:52> ED Treatment Course - LABORATORY CBC & Chemistry Diagram: 08/03/17 18:40 08/03/17 18:40 - ADDITIONAL ORDERS Additional order review: Laboratory Results 08/03/17 18:40 Sodium 136 Potassium 3.7 Chloride 102 Carbon Dioxide 26 Anion Gap 8 BUN 44 H D Creatinine 2.8 H D Creat Clearance w eGFR 17.42 Random Glucose 126 H Calcium 9.0 Total Bilirubin 0.4 D AST 15 D ALT 34 D Alkaline Phosphatase 76 D Total Protein 8.0 Albumin 3.6 Lipase 93 08/03/17 18:40 RBC 4.27 MCV 83.2 MCHC 31.9 L RDW 16.4 H MPV 7.0 L D Neutrophils % 89.3 H D Lymphocytes % 4.7 L D Monocytes % 5.6 Eosinophils % 0.0 D Basophils % 0.4 - Medications Given in the ED: ED Medications Discontinued Medications Generic Name Dose Route Start Last Admin Trade Name Fatoumata PRN Reason Stop Dose Admin Famotidine/Sodium Chloride 20 mg in 50 mls @ 100 mls/hr 08/03/17 18:27 18:50 Pepcid 20 Mg Premixed Ivpb - IVPB 08/03/17 18:56 100 mls/hr ONCE ONE Administration Sodium Chloride 1,000 mls @ 1,000 mls/hr 08/03/17 18:27 08/03/17 18:50 Normal Saline - IV 08/03/17 19:26 1,000 mls/hr ONCE ONE Administration Metoclopramide HCl 10 mg 08/03/17 18:27 08/03/17 18:50 Reglan Injection - IVPUSH 08/03/17 18:28 10 mg ONCE ONE Administration Oxycodone HCl 10 mg 08/03/17 19:12 08/03/17 19:27 Roxicodone - PO 08/03/17 19:13 10 mg ONCE ONE Administration <Tim Way - Last Filed: 08/03/17 19:51> - LABORATORY CBC & Chemistry Diagram: 08/03/17 18:40 08/03/17 18:40 <Jose F Lee - Last Filed: 08/03/17 23:52> Medical Decision Making - Medical Decision Making 08/03/17 18:30 A portion of this note was documented by scribe services under my direction. I have reviewed the details of the note, within reason, and agree with the documentation with the following case summary and management plan written by me. 56-year-old female with history of chronic joint pain maintained on daily oxycodone presents with 1 day of nonbloody nonbilious nausea/vomiting/diarrhea with crampy intermittent abdominal pain, no persistent or localized pain. No fevers or chills, no recent travel or sick contacts or antibiotics, no history of recurring GI illnesses. 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 Afebrile. Generally well-appearing, dry mucosa Soft/nondistended, epigastric discomfort to palpation without guarding or rebound. Neurologically intac 56-year-old female with intermittent abdominal cramping/nausea/vomiting/ diarrhea for 1 day. Presentation seems most consistent with possible viral syndrome, rule out biliary or pancreatic etiology, could be early/mild opiate withdrawal but no associated hemodynamic changes. Labs Antiemetic, antacid, IV fluids Will dose her usual oxycodone once her nausea is controlled If above is within normal limits, will PO trial, reassess. 08/03/17 20:26 leukocytosis of 18, could be consistent with suspected gastroenteritis. abd exam improved after antacid, no guarding/rebound. Cr notably elevated 2.8, prior in 03/23 1.3, K normal. Received iv fluids, feels a little better. Discussed with Dr. Elias, her PCP. States this is new for her and recommends admission for Cr monitoring and hydration. Admits to hospitalist, who was called. 08/03/17 21:04 Accepted for med/surg Obs by Dr. Nguyen. <Jose F Lee - Last Filed: 08/03/17 23:52> *DC/Admit/Observation/Transfer - Attestations Scribe Attestion: 08/03/17 19:52 Documentation prepared by Tim Way, acting as medical oncology physician for Jose F Lee MD, /DO. <Tim Way - Last Filed: 08/03/17 19:51> - Discharge Dispostion Admit: Yes <Jose F Lee - Last Filed: 08/03/17 23:52> Diagnosis at time of Disposition: Vomiting and diarrhea, Acute renal insufficiency - Discharge Dispostion Condition at time of disposition: Stable
[2017-08-03] MEDS ORDERED: METOCLOPRAMIDE HCL INJECTION 10 MG/2 ML VIAL IVPUSH ONE (18:27)
[2017-08-03] MEDS ORDERED: FAMOTIDINE 20 MG/50 ML IVPB 20 MG/50 ML MG IVPB ONE ×2 (18:27→18:48)
[2017-08-03] MEDS ORDERED: SODIUM CHLORIDE 1,000 ML IV ONE (18:27)
[2017-08-03] MEDS ORDERED: METOCLOPRAMIDE HCL INJECTION 10 MG/2 ML VIAL ONE (18:48)
[2017-08-03 18:51] LABS: BASO # 0.1 #; BASO % 0.4 % (0-2.0); LYMPH # 0.9; MCH 26.5 pg (25.7-33.7); MCHC 31.9 g/dl (32.0-36.0); MEAN CELL VOLUME 83.2 fl (80-96); NEUT # 16.5 #; NEUT % 89.3 % (42.8-82.8); PLATELET COUNT 400 K/MM3 (134-434); RDW 16.4 % (11.6-15.6); WHITE BLOOD COUNT 18.5 K/mm3 (4.0-10.0)
[2017-08-03] MEDS ORDERED: oxyCODONE HCL 5 MG TABLET PO ONE (19:12)
[2017-08-03] MEDS ORDERED: oxyCODONE HCL 5 MG TABLET ONE (19:17)
[2017-08-03 19:37] LABS: ALBUMIN 3.6 g/dl (3.4-5.0); ALK PHOS 76 U/L (45-117); ANION GAP 8 (8-16); BILIRUBIN,TOTAL 0.4 mg/dL (0.2-1.0); CO2 26 mmol/L (21-32); CREATININE 2.8 mg/dL (0.55-1.02); GLUCOSE,RANDOM 126 mg/dL (74-106); SGOT/AST 15 U/L (15-37); SGPT/ALT 34 U/L (12-78)
--- NOTE | 2017-08-03 22:07 | HP ---
CHIEF COMPLAINT: diarrhea/N/V x1 day PCP: HISTORY OF PRESENT ILLNESS: 56 yo F w/ pmh of HTN, DM2, GERD and opioid dependence who presents with one day of N/V and diarrhea that began early this afternoon. Pt endorses sudden onset of non-bloody diarrhea along with N/V (nonbloody/nonbilious) this PM, which she states is similar to prior episodes of opiate withdrawal. She also endorses mild dizziness on standing and "hot flashes" this week. She denies any fever/chills, BIRCH, SOB, cough, CP, palpitations, dysuria, rashes, neuro symptoms , LE edema. Denies any sick contact, recent travel or diet changes. Pt endorses taking Oxycodone 10mg TID at home. Pt appears to exhibit drug seeking behavior. Will require confirmation of home medications and reported opiate regimen. Pt with successful discharge from rehab for detox on 04/06. ER course was notable for: (1)WBC 18.5, afebrile (2)Cr 2.8, baseline 1.3 (3) Recent Travel: None PAST MEDICAL HISTORY: DM2 HTN GERD Opioid dependence Depression Morbid Obesity Varicose veins PAST SURGICAL HISTORY: None Social History: Smoking: Denies Alcohol: Denies Drugs: Denies Family History: Noncontributory Allergies No Known Allergies Allergy (Verified 08/03/17 17:41) HOME MEDICATIONS: Home Medications Medication Instructions Recorded Aspirin [Ecotrin] 81 mg PO DAILY 03/24/16 Losartan/Hydrochlorothiazide 1 each PO DAILY 03/24/16 [Losartan-Hctz 100-25 mg Tab] Omeprazole [Prilosec] 40 mg PO DAILY 03/24/16 Quetiapine Fumarate [Seroquel] 100 tab PO DAILY 03/24/16 Sitagliptin Phosphate [Januvia] 10 mg PO DAILY 03/24/16 Zolpidem Tartrate 5 mg PO HS 03/24/16 Gabapentin [Neurontin] 300 mg PO TID #30 capsule 01/30/17 Citalopram Hydrobromide [Celexa -] 40 mg PO DAILY #30 tablet 04/01/17 Quetiapine Fumarate [Seroquel] 100 mg PO HS #30 tablet 04/01/17 Venlafaxine HCl ER [Effexor Xr -] 75 mg PO DAILY #30 cap.er.24h 04/01/17 Zolpidem Tartrate [Ambien] 10 mg PO HS #14 tablet MDD 10 04/01/17 Zolpidem Tartrate [Ambien] 0 mg PO HS #14 tablet MDD 10 04/03/17 Unobtainable 08/03/17 REVIEW OF SYSTEMS CONSTITUTIONAL: generalized weakness, loss of appetite Absent: fever, chills, diaphoresis, malaise, weight change HEENT: Absent: rhinorrhea, nasal congestion, throat pain, throat swelling, difficulty swallowing, mouth swelling, ear pain, eye pain, visual changes CARDIOVASCULAR: lightheadedness Absent: chest pain, syncope, palpitations, irregular heart rate, peripheral edema RESPIRATORY: Absent: cough, shortness of breath, dyspnea with exertion, orthopnea, wheezing, stridor, hemoptysis GASTROINTESTINAL: nausea, vomiting, diarrhea, Absent: abdominal pain, abdominal distension, constipation, melena, hematochezia GENITOURINARY: Absent: dysuria, frequency, urgency, hesitancy, hematuria, flank pain, genital pain MUSCULOSKELETAL: Absent: myalgia, arthralgia, joint swelling, back pain, neck pain SKIN: Absent: rash, itching, pallor HEMATOLOGIC/IMMUNOLOGIC: Absent: easy bleeding, easy bruising, lymphadenopathy, frequent infections ENDOCRINE: Absent: unexplained weight gain, unexplained weight loss, heat intolerance, cold intolerance NEUROLOGIC: Absent: headache, focal weakness or paresthesias, dizziness, unsteady gait, seizure, mental status changes, bladder or bowel incontinence. PHYSICAL EXAMINATION Vital Signs - 24 hr 08/03/17 17:55 Temperature 98.2 F Pulse Rate 86 Respiratory 20 Rate Blood Pressure 151/92 O2 Sat by Pulse 100 Oximetry (%) GENERAL: Awake, alert, and fully oriented, in no acute distress. HEAD: Normal with no signs of trauma. EYES: Pupils equal, round and reactive to light, extraocular movements intact, sclera anicteric, conjunctiva clear. No lid lag. EARS, NOSE, THROAT: Dry mucous membranes. Ears normal, nares patent, oropharynx clear without exudates. NECK: Normal range of motion, supple without lymphadenopathy, JVD, or masses. LUNGS: Breath sounds equal, clear to auscultation bilaterally. No wheezes, and no crackles. No accessory muscle use. HEART: Regular rate and rhythm, normal S1 and S2 without murmur, rub or gallop. ABDOMEN: Mild discomfort to palpation in RUQ/LUQ. Globular abdomen. No guarding or rebound tenderness. No hepatomegaly or splenomegaly. MUSCULOSKELETAL: Normal range of motion at all joints. No bony deformities or tenderness. No CVA tenderness. UPPER EXTREMITIES: 2+ pulses, warm, well-perfused. No cyanosis. No clubbing. No peripheral edema. LOWER EXTREMITIES: 2+ pulses, warm, well-perfused. No calf tenderness. No peripheral edema. NEUROLOGICAL: Cranial nerves II-XII intact. Normal speech. Normal gait. PSYCHIATRIC: Cooperative. Good eye contact. Appropriate mood and affect. Laboratory Results - last 24 hr CBC, BMP 08/03/17 18:40 08/03/17 18:40 08/03/17 08/03/17 18:40 18:40 WBC 18.5 H D RBC 4.27 Hgb 11.3 D Hct 35.5 D MCV 83.2 MCH 26.5 MCHC 31.9 L RDW 16.4 H Plt Count 400 D MPV 7.0 L D Neutrophils % 89.3 H D Lymphocytes % 4.7 L D Monocytes % 5.6 Eosinophils % 0.0 D Basophils % 0.4 Sodium 136 Potassium 3.7 Chloride 102 Carbon Dioxide 26 Anion Gap 8 BUN 44 H D Creatinine 2.8 H D Creat Clearance w eGFR 17.42 Random Glucose 126 H Calcium 9.0 Total Bilirubin 0.4 D AST 15 D ALT 34 D Alkaline Phosphatase 76 D Total Protein 8.0 Albumin 3.6 Lipase 93 No micro No CXR, EKG ASSESSMENT/PLAN: 56 yo F w/ pmh of HTN, DM2, GERD and opioid dependence who presents with one day of N/V and diarrhea that began early this afternoon. Pt likely suffering from acute gastroenteritis (viral/bacterial) vs opioid withdrawal. #Gastroenteritis vs opioid withdrawal - WBC 18K, afebrile; Given chronicity, likely opioid withdrawal however must r/o gastroenteritis given elevated WBC - IVFs - Compazine/zofran for nausea - Will restart home oxycodone upon confirming meds in AM; pt with drug-seeking behavior - If febrile/persistent WBC count, stool cultures - Trend WBC, fever #TEDDY - Baseline Cr 1.3; Currently 2.8 - Renal U/S - IVFs - Daily BMPs, trend Cr - Consider renal consult # DM2 - Cont Januvia 50mg qD - BGM ACHS #Opioid dependence - Monitor for signs of withdrawal - Consider detox consult - Confirm home meds in AM #HTN - Hold home losartan-hctz in setting of TEDDY - Cont BB - Monitor BP for HTN #GERD -Protonix 40mg qD #Depression - Cont home psych meds - F/u EKG for QTC #Insomnia - Cont home Ambien PPX Heparin Subq TID Protonix FEN NS 75cc/hr Daily BMPs, trend Cr Diabetic diet Plan discussed with attending, Dr. Wendy Ballesteros, PGY1 Visit type - Emergency Visit Emergency Visit: Yes ED Registration Date: 08/03/17 Care time: The patient presented to the Emergency Department on the above date and was hospitalized for further evaluation of their emergent condition. - New Patient This patient is new to me today: Yes Date on this admission: 08/04/17 - Critical Care Critical Care patient: No
[2017-08-03 23:53] VITALS: BMI 38.6
[2017-08-04] MEDS: SODIUM CHLORIDE 1,000 ML IV SCH ×2 (00:26→23:23)
[2017-08-04] MEDS ORDERED: PROCHLORPERAZINE MALEATE 5 MG TABLET PO ONE (00:57)
[2017-08-04] MEDS ORDERED: oxyCODONE HCL 5 MG TABLET PO ONE (01:15)
[2017-08-04] MEDS ORDERED: ACETAMINOPHEN 325 MG TABLET (FP) PO ONE ×2 (01:15→06:51)
[2017-08-04] MEDS: INSULIN SLIDING SCALE (NOVOLOG) 1 VIAL SQ SCH ×4 (06:09→21:25)
--- NOTE | 2017-08-04 06:13 | PN ---
Teaching Attending Note Name of Resident: Marvin Ballesteros ATTENDING PHYSICIAN STATEMENT I saw and evaluated the patient. I reviewed the resident's note and discussed the case with the resident. I agree with the resident's findings and plan as documented. SUBJECTIVE: OBJECTIVE: ASSESSMENT AND PLAN: 56 y/o female patient admitted for TEDDY on CKD, assoicated with malaise, diarrhea , and abdominal pain. patient has been witout her oxycodone for few days. possible acute gastroenteritis, vs acute opiate withdrawal admit to the observation IVF hydration c/w home medicaition hold any ROMI/ARB or diuretics for the patient repeat lab in the morning renal evaluation
[2017-08-04] MEDS: HEPARIN NA (PORCINE) 5,000 UNITS/ML 1ML VIAL SQ SCH ×3 (06:29→21:24)
[2017-08-04] MEDS ORDERED: ONDANSETRON 4 MG/2 ML VIAL IVPUSH ONE (06:53)
[2017-08-04] MEDS ORDERED: sitaGLIPtin PHOSPHATE 50 MG TABLET PO SCH (07:00)
[2017-08-04 07:57] LABS: EOS % 0.1 % (0-4.5); LYMPH # 1.5; MCH 26.3 pg (25.7-33.7); MEAN CELL VOLUME 82.3 fl (80-96); MEAN PLT VOLUME 7.2 fl (7.5-11.1); MONO # 1.4 #; NEUT # 17.3 #; NEUT % 85.5 % (42.8-82.8); PLATELET COUNT 370 K/MM3 (134-434); RDW 15.6 % (11.6-15.6); WHITE BLOOD COUNT 20.2 K/mm3 (4.0-10.0)
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
[2017-08-04 08:33] LABS: ALBUMIN 3.3 g/dl (3.4-5.0); ANION GAP 12 (8-16); CALCIUM 8.9 mg/dL (8.5-10.1); CO2 23 mmol/L (21-32); GLUCOSE,RANDOM 113 mg/dL (74-106)
[2017-08-04 08:39] LABS: ALK PHOS 75 U/L (45-117); BILIRUBIN,TOTAL 0.9 mg/dL (0.2-1.0); CREATININE 1.6 mg/dL (0.55-1.02); SGOT/AST 15 U/L (15-37); SGPT/ALT 34 U/L (12-78); TOT PROT 7.3 g/dl (6.4-8.2)
[2017-08-04] MEDS: ASPIRIN COATED 81 MG TABLET.EC PO SCH (09:06)
[2017-08-04] MEDS: CARVEDILOL 25 MG TABLET (FP) PO SCH ×3 (09:06→23:23)
--- NOTE | 2017-08-04 09:23 | EKG ---
Test Reason : Blood Pressure : / mmHG Vent. Rate : 093 BPM Atrial Rate : 093 BPM P-R Int : 172 ms QRS Dur : 094 ms QT Int : 332 ms P-R-T Axes : 046 -01 -54 degrees QTc Int : 412 ms NORMAL SINUS RHYTHM POSSIBLE LEFT ATRIAL ENLARGEMENT LEFT VENTRICULAR HYPERTROPHY WITH REPOLARIZATION ABNORMALITY ABNORMAL ECG WHEN COMPARED WITH ECG OF 01-APR-2017 02:19, PREMATURE VENTRICULAR COMPLEXES ARE NO LONGER PRESENT Confirmed by SHEILA SWEET MD ([id number]) on 08/04/2017 9:22:38 AM Referred By: Confirmed By:SHEILA SWEET MD
[2017-08-04] MEDS ORDERED: PANTOPRAZOLE 40 MG TABLET (FP) PO SCH (10:00)
[2017-08-04] MEDS ORDERED: traMADol HCL 50 MG TABLET PO ONE (12:46)
--- NOTE | 2017-08-04 12:51 | CONSULT ---
Consult Detox [facility] Reason for Current Admission/Consult: evaluate for opioid dependence and withdrawal Referred by:: kendell post - History History of Present Illness: 56 yo f with h/o chronic left knee arthritis pain for which she is prescribed opioids for chronic pain while awaiting surgery- percocet 10mg q6h (confirmed by [place]) admitted with acute nausea a vomiting and diarrhea. consult called to assess for pain medication regimen vs detox, in view of opioid use disorder history. patient refused methadone detox while admitted which was initially ordered. Requesting percocet for pain as prescribed (10/325 q6h) but hospital does not have percocet. not tolerating tramadol or zofran odt .utox + ve for xtc and opiate use which patient denies at this time. elevated wbc is higher than that usually seen in withdrawal and may be due to infectious etiology. - History Source History Provided By: Patient, Medical Record, Caregiver Limitations to Obtaining History: No Limitations - Alcohol/Substance Use Hx Alcohol Use: No Hx Substance Use: Yes (pain medication misuse in past) Hx Substance Use Treatment: Yes ([facility] inpatient detox) - Past Medical History ...LMP: 09/23/13 - Significant Medical Findings: 56 yo f in opioid withdrawal from pain medications after admission for acute n and v, etiology unclear, w elevated wbc refusing detox from pain medications with methadone requesting pain medications prescribed by pain physician for left knee arthritis pain. refusing tramadol and zofran odt as they do not agree with her. COWS - Scale Resting Pulse: 1= ME 81-100 Sweatin= Chills/Flushing Restless Observation: 1= Difficult to Sit Still Pupil Size: 1= Pupils >than Normal Bone or Joint Aches: 1= Mild Discomfort Runny Nose/ Eye Tearin= Nasal Congestion GI Upset > 30mins: 2= Nausea/Diarrhea Tremor Observation: 1= Tremor [place], Not Seen Yawning Observation: 0= None Anxiety or Irritability: 1=Feels Anxious/Irritable Goose Flesh Skin: 0=Smooth Skin COWS Score: 10 Assessment Plan - Diagnosis (1) Acute renal insufficiency Status: Acute (2) Drug-induced mood disorder Status: Acute (3) DM2 (diabetes mellitus, type 2) Status: Chronic Qualifiers: Diabetes mellitus complication status: without complication (4) Essential hypertension Status: Chronic (5) GERD (gastroesophageal reflux disease) Status: Chronic Qualifiers: Esophagitis presence: without esophagitis Qualified Code(s): K21.9 - Gastro -esophageal reflux disease without esophagitis (6) Morbid obesity Status: Chronic (7) Opioid dependence with withdrawal Status: Chronic (8) Left anterior knee pain Status: Acute - Plan Plan: Chart reviewed, labs reviewed, imaging reviewed, pateint examined, histroy taken care discussed with medical providers.: 56yo morbidly obese f w h/o left knee arthritis on percocet 10mg q6h for pain admitted yesterday for nausea dn vomiting found to have elevated wbc, now c/o opioid withdrawal sx and requesting pain medications as prescribed. Patient has been admitted to [facility] in past for problems with her use of opioid pain medication which she denies but refusing methadone detox at this time. REcommend continiuing oxycodone with tylenol as prescribed by pcp until medically stable for d/c to follow up with her pcp. she reports she is soon to have knee surgery adn appointment is scheduled. Parth Uriostegui MD [phone] - Medication Detox Regimen/Protocol: Not Applicable
[2017-08-04] MEDS ORDERED: METHADONE HCL 10 MG TABLET PO ONE ×2 (12:55→23:00)
[2017-08-04] MEDS ORDERED: diazePAM 5 MG TABLET PO PRN (12:55)
[2017-08-04] MEDS ORDERED: ONDANSETRON *ODT* 4 MG TABLET SL ONE (12:56)
[2017-08-04] MEDS ORDERED: ONDANSETRON *ODT* 4 MG TABLET SL PRN ×2 (12:57→14:15)
[2017-08-04] MEDS ORDERED: cloNIDine HCL 0.1 MG TABLET PO ONE (12:57)
[2017-08-04 14:11] LABS: URINE APPEARANCE CLEAR; URINE BILIRUBIN NEGATIVE (NEGATIVE); URINE BLOOD 1+ (NEGATIVE); URINE COLOR LTYELLOW; URINE GLUCOSE (UA) NEGATIVE (NEGATIVE); URINE KETONE NEGATIVE (NEGATIVE); URINE LEUK ESTERASE NEGATIVE (NEGATIVE); URINE NITRITE NEGATIVE (NEGATIVE); URINE PROTEIN NEGATIVE (NEGATIVE); URINE UROBILINOGEN NEGATIVE mg/dL (0.2-1.0)
[2017-08-04 14:12] LABS: URINE WBC <1 /hpf (3-5)
[2017-08-04 14:39] LABS: URINE MARIJUANA THC NEGATIVE ng/ml (CUTOFF=50)
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
[2017-08-04] MEDS ORDERED: oxyCODONE HCL 5 MG TABLET PO PRN (17:31)
[2017-08-04] MEDS ORDERED: ACETAMINOPHEN 325 MG TABLET (FP) PO PRN ×2 (17:31→19:24)
[2017-08-04] MEDS ORDERED: PROCHLORPERAZINE INJECTION 10 MG/2 ML VIAL IVPB PRN (17:33)
[2017-08-04 18:46] LABS: URINE LEUK ESTERASE Negative (NEGATIVE)
[2017-08-04] MEDS ORDERED: ZOLPIDEM TARTRATE 5 MG TABLET PO PRN (22:00)
[2017-08-04] MEDS ORDERED: QUEtiapine FUMARATE 200 MG TABLET PO SCH (22:00)
[2017-08-04] MEDS ORDERED: THIAMINE HCL 100 MG TABLET (FP) PO SCH (22:00)
[2017-08-04] MEDS: buPROPion HCL 100 MG TABLET PO SCH ×2 (23:22→23:34)
[2017-08-04] MEDS: VENLAFAXINE HCL 75 MG E.R. CAPSULES (FP) PO SCH (23:34)
[2017-08-05] MEDS: INSULIN SLIDING SCALE (NOVOLOG) 1 VIAL SQ SCH ×2 (06:13→11:54)
[2017-08-05] MEDS: HEPARIN NA (PORCINE) 5,000 UNITS/ML 1ML VIAL SQ SCH ×2 (06:32→14:40)
[2017-08-05] MEDS ORDERED: sitaGLIPtin PHOSPHATE 50 MG TABLET PO SCH (07:00)
[2017-08-05] MEDS: oxyCODONE HCL 5 MG TABLET PO PRN ×2 (07:22→15:03)
[2017-08-05 07:48] LABS: MCH 26.1 pg (25.7-33.7); MEAN CELL VOLUME 84.1 fl (80-96); MEAN PLT VOLUME 7.3 fl (7.5-11.1); PLATELET COUNT 299 K/MM3 (134-434); RDW 16.5 % (11.6-15.6); WHITE BLOOD COUNT 13.8 K/mm3 (4.0-10.0)
[2017-08-05 08:14] LABS: ALBUMIN 2.7 g/dl (3.4-5.0); ANION GAP 9 (8-16); CALCIUM 8.2 mg/dL (8.5-10.1); CO2 25 mmol/L (21-32); CREATININE 1.2 mg/dL (0.55-1.02); GLUCOSE,RANDOM 96 mg/dL (74-106); SGOT/AST 10 U/L (15-37); SGPT/ALT 33 U/L (12-78)
[2017-08-05 08:16] LABS: ALK PHOS 66 U/L (45-117); BILIRUBIN,TOTAL 0.7 mg/dL (0.2-1.0); TOT PROT 6.5 g/dl (6.4-8.2)
[2017-08-05] MEDS ORDERED: PT OWN MED DRAWER 7, Y5N ONE (09:00)
[2017-08-05] MEDS: CARVEDILOL 25 MG TABLET (FP) PO SCH (09:04)
[2017-08-05] MEDS: buPROPion HCL 100 MG TABLET PO SCH (09:04)
[2017-08-05] MEDS: ASPIRIN COATED 81 MG TABLET.EC PO SCH (09:04)
[2017-08-05] MEDS: VENLAFAXINE HCL 75 MG E.R. CAPSULES (FP) PO SCH (09:10)
[2017-08-05] MEDS ORDERED: PATIENT'S OWN MEDICATION (NON-FORMULARY) (Omeprazole [Prilosec] 40 MG) PO SCH (10:00)
[2017-08-05] MEDS ORDERED: PANTOPRAZOLE 40 MG TABLET (FP) PO SCH (10:00)
[2017-08-05] MEDS ORDERED: METHADONE HCL 10 MG TABLET PO ONE (10:00)
[2017-08-05] MEDS ORDERED: RANITIDINE HCL 150 MG TABLET (FP) PO SCH (10:00)
[2017-08-05] MEDS ORDERED: PRENATAL VITAMINS W/ FOLIC ACID TABLET (FP) PO SCH (10:00)
[2017-08-05 12:10] VITALS: BP 118/73; PULSE 84; TEMP 98.2
--- NOTE | 2017-08-05 13:31 | DS ---
Physical Exam: SUBJECTIVE: Patient seen and examined at bedside. NO new complaints and no overnight events. No vomiting or abdominal pain. She feels much better and ready to go home. Denies CP,BIRCH,SOB, abdominal pain, N/V/D/C. OBJECTIVE: Vital Signs Period Temp Pulse Resp BP Sys/Vilchis Pulse Ox Last 24 Hr 98.1 F-99.6 F 84-104 20-20 114-143/66-80 100-100 PHYSICAL EXAM GENERAL: AAOx3, NAD HEAD: NC/AT EYES: PERRLA,EOMI ENT: moist mucous membranes. NECK: supple, no jvd LUNGS: CTAB, No wheezing or rhonchi, HEART:RRR, S1S2 normal , No M/G/R ABDOMEN: Soft, obese, nontender, nondistended, BS normal active. No masses or organomegally EXTREMITIES: 2+ pulses, warm, well-perfused, no edema. NEUROLOGICAL: Cranial nerves II through XII grossly intact. Normal speech, gait not observed. PSYCH: Normal mood, normal affect. SKIN: Warm, dry, normal turgor, no rashes or lesions noted. LABS Laboratory Results - last 24 hr 08/04/17 08/04/17 08/04/17 13:00 13:00 16:59 WBC RBC Hgb Hct MCV MCH MCHC RDW Plt Count MPV Sodium Potassium Chloride Carbon Dioxide Anion Gap BUN Creatinine Creat Clearance w eGFR POC Glucometer 156 Random Glucose Calcium Total Bilirubin AST ALT Alkaline Phosphatase Total Protein Albumin Urine Color Ltyellow Urine Appearance Clear Urine pH 6.0 Ur Specific [place] 1.012 Urine Protein Negative Urine Glucose (UA) Negative Urine Ketones Negative Urine Blood 1+ H Urine Nitrite Negative Urine Bilirubin Negative Urine Urobilinogen Negative Ur Leukocyte Esterase Negative Urine WBC (Auto) <1 Urine RBC (Auto) None Ur Epithelial Cells Rare Opiates Screen Positive Methadone Screen Negative Barbiturate Screen Negative Phencyclidine Screen Negative Ur Amphetamines Screen Negative MDMA (Ecstasy) Screen Positive Benzodiazepines Screen Negative Cocaine Screen Negative U Marijuana (THC) Screen Negative 08/04/17 08/05/17 08/05/17 20:54 06:12 07:00 WBC 13.8 H D RBC 3.69 Hgb 9.6 L D Hct 31.0 L MCV 84.1 MCH 26.1 MCHC 31.0 L RDW 16.5 H Plt Count 299 MPV 7.3 L Sodium Potassium Chloride Carbon Dioxide Anion Gap BUN Creatinine Creat Clearance w eGFR POC Glucometer 137 108 Random Glucose Calcium Total Bilirubin AST ALT Alkaline Phosphatase Total Protein Albumin Urine Color Urine Appearance Urine pH Ur Specific [place] Urine Protein Urine Glucose (UA) Urine Ketones Urine Blood Urine Nitrite Urine Bilirubin Urine Urobilinogen Ur Leukocyte Esterase Urine WBC (Auto) Urine RBC (Auto) Ur Epithelial Cells Opiates Screen Methadone Screen Barbiturate Screen Phencyclidine Screen Ur Amphetamines Screen MDMA (Ecstasy) Screen Benzodiazepines Screen Cocaine Screen U Marijuana (THC) Screen 08/05/17 08/05/17 07:00 11:43 WBC RBC Hgb Hct MCV MCH MCHC RDW Plt Count MPV Sodium 139 Potassium 3.6 Chloride 105 Carbon Dioxide 25 Anion Gap 9 BUN 21 H D Creatinine 1.2 H D Creat Clearance w eGFR 46.30 POC Glucometer 143 Random Glucose 96 Calcium 8.2 L Total Bilirubin 0.7 D AST 10 L D ALT 33 Alkaline Phosphatase 66 Total Protein 6.5 Albumin 2.7 L Urine Color Urine Appearance Urine pH Ur Specific [place] Urine Protein Urine Glucose (UA) Urine Ketones Urine Blood Urine Nitrite Urine Bilirubin Urine Urobilinogen Ur Leukocyte Esterase Urine WBC (Auto) Urine RBC (Auto) Ur Epithelial Cells Opiates Screen Methadone Screen Barbiturate Screen Phencyclidine Screen Ur Amphetamines Screen MDMA (Ecstasy) Screen Benzodiazepines Screen Cocaine Screen U Marijuana (THC) Screen HOSPITAL COURSE: 56 y/o lady with h/o HTN, DM , opioid dependence who presented nausea, vomiting and diarrhea admitted for acute narcotic withdrawal found to have acute kidney injury. She was given zofran for nausea and given IV Fluids. She also presented with leukocytosis which was worked up with CXR, urinalaysis, and C-diff, which all resulted negative. She was seen by detox and pain management. She declined detox and will follow up with her pain specialist in one week. No prescription for pain medication given on discharge. In terms of her diabetes, her januvia was held and was managed with Insulin sliding scale. She will resume Januvia upon discharge. TEDDY was most likely pre-renal and resolved with oral hydration. Will give referral for nephrology for follow up in one week. She is clinically stable at time of discharge and instructed to follow up with PCP and pain specialist in one week. Date of Admission:08/03/17 Date of Discharge: 08/05/17 Minutes to complete discharge: 65 Discharge Summary Reason For Visit: ACUTE RENAL INSUFFICIENCY Current Active Problems Acute renal insufficiency (Acute) Narcotic withdrawal (Acute) Vomiting and diarrhea (Acute) Condition: Stable - Instructions Diet, Activity, Other Instructions: You have been seen and treated for acute narcotic withdrawal and acute kidney injury. You can resume a diabetic diet. Increase your activity as tolerated Please follow up with your Primary doctor in one week. Please follow up with your Pain Management doctor as well. You will be referred to a kidney doctor (Dr. Gaitan ) for follow up on your kidney function. Please go in one week to have blood test done to confirm stable kidney function and blood counts. fax blood work to your primary care doctor Resume your home medications as previously prescribed except for Ibuprofen which is damaging to kidneys. If you develop new or worsening symptoms of nausea, vomiting, fever , chills or chest pain please return to Emergency Room. Referrals: Hever Gaitan MD [Staff Physician] - Pee Spence RES [Resident] - 08/08/17 Disposition: HOME - Home Medications Comprehensive Discharge Medication List: Ambulatory Orders Aspirin [Ecotrin] 81 mg PO DAILY 03/24/16 Losartan/Hydrochlorothiazide [Losartan-Hctz 100-25 mg Tab] 1 each PO DAILY 03/24 Omeprazole [Prilosec] 40 mg PO DAILY 03/24/16 Sitagliptin Phosphate [Januvia] 50 mg PO DAILY 03/24/16 Bupropion HCl 100 mg PO DAILY 08/03/17 Carvedilol [Coreg] 25 mg PO DAILY 08/03/17 Cyclobenzaprine HCl 10 mg PO DAILY 08/04/17 Oxycodone HCl/Acetaminophen [Oxycodone-Acetaminophen 10-325] 1 each PO Q8H PRN MDD 3/day 08/04/17 Quetiapine Fumarate [Seroquel -] 200 mg PO HS 08/04/17 Ranitidine HCl 150 mg PO DAILY 08/04/17 Citalopram Hydrobromide [Celexa -] 40 mg PO DAILY #30 tablet 08/05/17 Miscellaneous Drug Not In Syst [Outpatient Lab Test] 1 each ASDIR #1 misc Venlafaxine HCl ER [Effexor Xr -] 75 mg PO DAILY #30 cap.er.24h 08/05/17 Problem List - Problems (1) Acute renal insufficiency (2) Narcotic withdrawal (3) Chronic pain (4) DM2 (diabetes mellitus, type 2) (5) Morbid obesity This patient is new to me today: Yes Date on this admission: 08/05/17 Emergency Visit: No Critical Care patient: No - Discharge Referral Referred to [facility] Med P.C.: No
--- NOTE | 2017-08-05 17:21 | PN ---
Teaching Attending Note Name of Resident: Pee Spence ATTENDING PHYSICIAN STATEMENT I saw and evaluated the patient. I reviewed the resident's note and discussed the case with the resident. I agree with the resident's findings and plan as documented. SUBJECTIVE: No fever or chills, pain is controlled o n pain meds ( home regimen ) . denies Abd pain , tolerated her food OBJECTIVE: NAD , MMM CV: RRR, no MRG Lungs : CTAB Ext : no edema Abd: soft, NT, ND , NL BS ASSESSMENT AND PLAN: 56 y/o lady with h/o HTN, DM , opioid dependence who presented with n/V/and diarrhea . 1- N/V/Diarrhea , possible withdrawal from opioids. or due to gastroenteritis . - resolved now , tolerating diet - diarrhea did not occur in house 2- Leukocytosis : reactive . no signs of infection 3- Opioid dependence: declined detox with methadone will have her follow with her pain management doctor , and cont her home regimen of percocet . no prescription given at dc . 4- DM : januvia at dc 5- HTN: cont coreg , resume ARB/HCTZ 6- TEDDY: due to pre-renal azotemia . - resolved - oral hydration DVT PX
[2017-08-06] MEDS ORDERED: METHADONE HCL 5 MG TABLET PO ONE (10:00)
[2017-08-07] MEDS ORDERED: METHADONE HCL 5 MG TABLET PO ONE (10:00)
[2017-08-08] MEDS ORDERED: METHADONE HCL 10 MG TABLET PO ONE (10:00)
[2017-08-09] MEDS ORDERED: METHADONE HCL 5 MG TABLET PO ONE (06:00)
== END 2017-08-05 15:43 | disposition home or self-care (01) ==
LOC: JER 17:36 → JERBED 21:04 → J8W 08-04 00:40
PROVIDERS: ADMIT Internal Medicine; ATTEND Internal Medicine
PROC: 3E0337Z Introduction of Electrolytic and Water Balance Substance into Peripheral Vein, Percutaneous Approach (ICD-10-PCS; principal; 2017-08-03)
DX: N28.9 Disorder of kidney and ureter, unspecified (principal); F11.23 Opioid dependence with withdrawal; R11.2 Nausea with vomiting, unspecified; R19.7 Diarrhea, unspecified; N17.9 Acute kidney failure, unspecified; I10 Essential (primary) hypertension; K21.9 Gastro-esophageal reflux disease without esophagitis; E11.9 Type 2 diabetes mellitus without complications; F32.9 Major depressive disorder, single episode, unspecified; E66.01 Morbid (severe) obesity due to excess calories; I83.90 Asymptomatic varicose veins of unspecified lower extremity; Z68.38 Body mass index [BMI] 38.0-38.9, adult; G47.00 Insomnia, unspecified; Z79.82 Long term (current) use of aspirin; D72.829 Elevated white blood cell count, unspecified; R10.9 Unspecified abdominal pain; F19.24 Other psychoactive substance dependence with psychoactive substance-induced mood disorder
CPT/HCPCS: 36415; 71020-TC; 76775-TC; 80053; 80307; 81003; 81015; 83690; 85025; 85027; 93005; 93010; 99283-25; G0378; G0480; J1644

== ENCOUNTER 2018-05-17 11:59 | Inpatient (IN) | payer OTHER ==
--- NOTE | 2018-05-17 12:19 | PDOC ---
History of Present Illness - General Stated Complaint: Shortness of Breath Time Seen by Provider: 05/17/18 12:18 History Source: Patient - History of Present Illness Initial Comments: 05/17/18 12:39 The patient is a 57 year old female with a PMH of HTN, GERD, L knee pain ( currently waiting cardiac pre-clearance for knee replacement surgery) who presents to our ED c/o shortness of breath. The shortness of breath started acutely last night and is intermittent, without any associated chest pain, palpitations or lightheadedness. Notes h/o TIRADO for 1+ year. Attributes shortness of breath to anxiety about her life including her knee pain, her children and her blood pressure. Patient states she is in the process of switching pain clinics (currently sees Dr. Josue in the [place]) because her current doctor only gives her Percocet TID and it is not sufficiently controlling her pain. NKDA Surgical: none Social: denies toxic habits PMD: Dr. Elias Past History - Past Medical History Allergies/Adverse Reactions: Allergies Allergy/AdvReac Type Severity Reaction Status Date / Time No Known Allergies Allergy Verified 05/17/18 12:24 Home Medications: Ambulatory Orders Aspirin [Ecotrin] 81 mg PO DAILY 03/24/16 Bupropion HCl 75 mg PO BID 08/03/17 Carvedilol [Coreg] 25 mg PO BID 08/03/17 Cyclobenzaprine HCl 10 mg PO DAILY 08/04/17 Oxycodone HCl/Acetaminophen [Oxycodone-Acetaminophen 10-325] 1 each PO Q8H PRN MDD 3/day 08/04/17 Quetiapine Fumarate [Seroquel -] 200 mg PO HS 08/04/17 Venlafaxine HCl ER [Effexor Xr -] 75 mg PO TID 01/12/18 Zolpidem Tartrate [Ambien] 10 mg PO HS 01/12/18 Buspirone HCl [Buspar -] 15 mg PO DAILY 05/17/18 Hydralazine HCl 50 mg PO DAILY 05/17/18 Oxycodone HCl 5 mg PO BID PRN #10 capsule MDD 2 05/17/18 Anemia: No Asthma: No Cancer: No Cardiac Disorders: No CVA: No COPD: No CHF: No Dementia: No Diabetes: Yes (not on meds) GI Disorders: Yes (REFLUX) Disorders: No HTN: Yes (on med) Hypercholesterolemia: No Liver Disease: No Seizures: No Thyroid Disease: No - Immunization History Immunization Up to Date: Yes - Suicide/Smoking/Psychosocial Hx Smoking History: Never smoked Have you smoked in the past 12 months: No Hx Alcohol Use: No Drug/Substance Use Hx: Yes (pain medication misuse in past) Substance Use Type: None Hx Substance Use Treatment: Yes ([facility] inpatient detox) Review of Systems - Review of Systems Constitutional: No: Chills, Fever Respiratory: Yes: Shortness of Breath. No: Cough, Wheezing, Hemoptysis Cardiac (ROS): No: Chest Pain, Lightheadedness, Palpitations ABD/GI: No: Constipated, Diarrhea, Nausea, Vomiting : No: Burning, Dysuria *Physical Exam - Physical Exam General Appearance: Yes: Nourished, Obese HEENT: positive: Normal Voice, Hearing Grossly Normal Neck: positive: Trachea midline, Supple Respiratory/Chest: positive: Lungs Clear, Normal Breath Sounds. negative: Labored Respiration, Crackles, Wheezing Cardiovascular: positive: S1, S2, Edema. negative: JVD Vascular Pulses: Dorsalis-Pedis (R): 2+, Doralis-Pedis (L): 2+ Gastrointestinal/Abdominal: positive: Normal Bowel Sounds, Soft Musculoskeletal: negative: CVA Tenderness (R), CVA Tenderness (L) Extremity: positive: Normal Capillary Refill, Normal Inspection Integumentary: positive: Normal Color, Dry, Warm Neurologic: positive: Fully Oriented, Alert ED Treatment Course - LABORATORY CBC & Chemistry Diagram: 05/17/18 12:50 05/17/18 12:50 Medical Decision Making - Medical Decision Making 05/17/18 13:23 57 year old female presents with 1 day h/o shortness of breath. Hypertensive ( 160's/100's) and Tachycardic (low 100's) @ presentation. Breathing comfortably on RA. Frontal diagnosis: r/o PE, r/o ACS, vs. subjective dyspnea 2/2 to pain. CTA, Basic labs, EKG, Troponin. Morphine for pain control. Reassess. 05/17/18 13:30 Patient remains hypertensive (167/104) and tachycardic. States she didn't take her Carvedilol today and thinks she took her Hydralazine. Will give 10 mg push of IV Labetalol. Reassess. 05/17/18 13:33 ECG shows HR 100, prolonged VA intervals, LVH and WVI in Lead III, c/w previous ECG dated 05/17/18 14:23 Repeat BP 143/96 05/17/18 18:27 CTA shows small PE within apical segment of right upper lobe. Given patient's questionable ability to follow-up, will admit for further evaluation, including need for A/C VSS Patient's PMD, Dr. Elias admits to hospitalist Patient admitted to inpatient medicine service for further evaluation. *DC/Admit/Observation/Transfer Diagnosis at time of Disposition: Pulmonary embolism - Discharge Dispostion Condition at time of disposition: Fair Decision to Admit order: Yes - Prescriptions - Referrals - Patient Instructions - Post Discharge Activity
[2018-05-17] MEDS ORDERED: morphine CARPU-JECT 4 MG/1 ML DISP.SYRIN IVPUSH ONE (12:38)
[2018-05-17] MEDS ORDERED: MORPHINE SULFATE 10 MG/1 ML *VIAL ONE (12:55)
[2018-05-17 13:08] LABS: EOS % 1.7 % (0-4.5); HEMATOCRIT 30.4 % (32.4-45.2); HEMOGLOBIN 9.7 GM/dL (10.7-15.3); LYMPH % 16.2 % (8-40); MCH 25.1 pg (25.7-33.7); MCHC 31.9 g/dl (32.0-36.0); MEAN CELL VOLUME 78.7 fl (80-96); MEAN PLT VOLUME 7.3 fl (7.5-11.1); MONO % 7.3 % (3.8-10.2); NEUT % 73.8 % (42.8-82.8); PLATELET COUNT 409 K/MM3 (134-434); RBC 3.87 M/mm3 (3.60-5.2); RDW 15.6 % (11.6-15.6); WHITE BLOOD COUNT 7.3 K/mm3 (4.0-10.0)
[2018-05-17] MEDS ORDERED: LABETALOL HCL 5 MG/1 ML (100MG/20 ML VIAL) IVPUSH ONE (13:31)
[2018-05-17 13:43] LABS: PROTHROMBIN TIME (PATIENT) 11.8 SEC (9.7-13.0)
[2018-05-17 13:46] LABS: ACTIVATED PTT 34.6 SECONDS (25.2-36.5)
[2018-05-17] MEDS ORDERED: LABETALOL HCL 5 MG/1 ML (200MG/40ML VIAL) IVPB ONE (13:53)
[2018-05-17 13:57] LABS: ALBUMIN 3.5 g/dl (3.4-5.0); ALK PHOS 68 U/L (45-117); ANION GAP 8 MMOL/L (8-16); BILIRUBIN,TOTAL 0.3 mg/dL (0.2-1); BLOOD UREA NITROGEN 21 mg/dL (7-18); CALCIUM 8.8 mg/dL (8.5-10.1); CHLORIDE 109 mmol/L (98-107); CO2 23 mmol/L (21-32); CREATININE 1.3 mg/dL (0.55-1.3); GLUCOSE,RANDOM 103 mg/dL (74-106); N-TERMINAL BNP 763.3 pg/ml (5-125); POTASSIUM 4.2 mmol/L (3.5-5.1); SGOT/AST 17 U/L (15-37); SGPT/ALT 22 U/L (13-61); SODIUM 139 mmol/L (136-145); TOT PROT 7.8 g/dl (6.4-8.2)
--- NOTE | 2018-05-17 14:07 | PDOC ---
Attending Attestation - Resident Resident Name: Marva Heard - ED Attending Attestation I have performed the following: I have examined & evaluated the patient, The case was reviewed & discussed with the resident, I agree w/resident's findings & plan, Exceptions are as noted - HPI HPI: 05/17/18 16:37 Ms Greenwood is a 57 yo F who presents to the ER with a complaint of shortness of breath and knee pain Pt has a h/o HTN, GERD, L knee pain for several years (s/p intraarticular injections). Shortness of breath started acutely last night and is intermittent, without any associated chest pain, palpitations or lightheadedness. Pt knee pain is chronic, she takes percocet, is followed by pain management (no new trauma, fevers, swelling) - Physicial Exam PE: 05/17/18 16:39 GENERAL: The patient is awake, alert, and fully oriented, in no acute distress. EYES: Pupils equal, round and reactive to light, extraocular movements intact, sclera anicteric, conjunctiva clear. LUNGS: CTA b/l CARD: RRR ABD: Soft non tender non distended EXTREMITIES: left knee painful, pt able to range it, limited by pain SKIN: Warm, Dry, normal turgor, no rashes or lesions noted. - Medical Decision Making 05/17/18 18:17 57 yo F presenting with left knee pain and shortness of breath DD: ACS, Pneumonia, pleural effusion, PE Knee pain - chronic knee pain CTA performed Possible Small PE Admit for evaluation
--- NOTE | 2018-05-17 15:40 | EKG ---
Test Reason : Blood Pressure : / mmHG Vent. Rate : 100 BPM Atrial Rate : 100 BPM P-R Int : 162 ms QRS Dur : 088 ms QT Int : 368 ms P-R-T Axes : 057 -14 010 degrees QTc Int : 474 ms SINUS RHYTHM WITH PREMATURE SUPRAVENTRICULAR COMPLEXES VOLTAGE CRITERIA FOR LEFT VENTRICULAR HYPERTROPHY ABNORMAL ECG WHEN COMPARED WITH ECG OF 03-AUG-2017 22:57, PREMATURE SUPRAVENTRICULAR COMPLEXES ARE NOW PRESENT T WAVE INVERSION NO LONGER EVIDENT IN LATERAL LEADS QT HAS LENGTHENED Confirmed by HOLLI JACKMAN MD ([id number]) on 05/17/2018 3:40:23 PM Referred By: Confirmed By:HOLLI JACKMAN MD
--- NOTE | 2018-05-17 19:57 | PN ---
Teaching Attending Note Name of Resident: Darshana Wisdom ATTENDING PHYSICIAN STATEMENT I saw and evaluated the patient. I reviewed the resident's note and discussed the case with the resident. I agree with the resident's findings and plan as documented. SUBJECTIVE: Patient is a 57 year old woman with a PMH of HTN, Depression, Opiate dependence , GERD, L knee pain (currently waiting cardiac pre-clearance for knee replacement surgery) who presents to our ER with complaint of SOB. The SOB started acutely last night and is intermittent, without any associated chest pain, palpitations or lightheadedness. Notes history of TIRADO for 1+ year. Attributes shortness of breath to anxiety about her life including her knee pain , her children and her blood pressure. Patient states she is in the process of switching primary care doctors because her current primary care doctor only gives her Percocet TID and it is not sufficiently controlling her pain. She got Labetalol 10 mg IV and 200 mg PO in the ER for uncontrolled HTN. Abnormal Lab Results 05/17/18 05/17/18 12:50 12:50 Hgb 9.7 L Hct 30.4 L MCV 78.7 L MCH 25.1 L MCHC 31.9 L MPV 7.3 L Chloride 109 H BUN 21 H Creatine Kinase 251 H B-Natriuretic Peptide 763.3 H OBJECTIVE: Alert Vital Signs Period Temp Pulse Resp BP Sys/Vilchis Pulse Ox Last 24 Hr 98.0 F-98.6 F 87-104 17-20 148-157/89-117 100-100 HEENT: No Jaundice, eye redness or discharge, PERRLA, EOMI. Normocephalic, atraumatic. External ears are normal and hearing is grossly intact. No nasal discharge. Neck: Supple, nontender. No palpable adenopathy or thyromegaly. No JVD Chest: Good effort. Clear to auscultation and percussion. Heart: Regular. No S3, rub or murmur Abdomen: Not distended, soft, nontender and no HSM. No rebound or guarding. Normoactive bowel sounds. Ext: Peripheral pulses intact. Left LE edema. Skin: Warm and dry. No petechiae, rash or ecchymosis. Neuro: Alert. Oriented x3. CN 2-12 grossly intact. Sensation grossly intact in all four extremities and DTR are symmetric. Home Medications Medication Instructions Recorded Aspirin [Ecotrin] 81 mg PO DAILY 03/24/16 Bupropion HCl 75 mg PO BID 08/03/17 Carvedilol [Coreg] 25 mg PO BID 08/03/17 Cyclobenzaprine HCl 10 mg PO DAILY 08/04/17 Oxycodone HCl/Acetaminophen 1 each PO Q8H PRN MDD 3/day 08/04/17 [Oxycodone-Acetaminophen 10-325] Quetiapine Fumarate [Seroquel -] 200 mg PO HS 08/04/17 Venlafaxine HCl ER [Effexor Xr -] 75 mg PO TID 01/12/18 Zolpidem Tartrate [Ambien] 10 mg PO HS 01/12/18 Buspirone HCl [Buspar -] 15 mg PO DAILY 05/17/18 Hydralazine HCl 50 mg PO DAILY 05/17/18 Oxycodone HCl 5 mg PO BID PRN #10 capsule MDD 2 05/17/18 Abnormal Lab Results 05/17/18 05/17/18 12:50 12:50 Hgb 9.7 L Hct 30.4 L MCV 78.7 L MCH 25.1 L MCHC 31.9 L MPV 7.3 L Chloride 109 H BUN 21 H Creatine Kinase 251 H B-Natriuretic Peptide 763.3 H ASSESSMENT AND PLAN: 1. PE - SOB may not be entirely due to the small subseqmental PE noted on CTPA. Will start Eliquis 5 mg BID and get ECHO to evaluate LV function. Monitor on telemetry. Get left leg doppler and repeat UA in view of microscopic hematuria. If hematuria persists, will consult Urology. Will consult logistics specialist for her opiate dependence. 2. Low MCV Anemia - Etiology unclear. Will do basic anemia work up including serial stool guaiacs, reticulocyte count and iron studies. 3. Obesity - Will provide patient all the necessary assistance, counseling and positive reinforcement to facilitate weight loss. Consult strategic planning manager. 4. DVT prophylaxis - On Eliquis. 5. Advance directives - Full code
[2018-05-17] MEDS: APIXABAN 5 MG TABLET PO SCH (22:07)
--- NOTE | 2018-05-17 22:10 | HP ---
CHIEF COMPLAINT: shortness of breath PCP: Dr. Elias HISTORY OF PRESENT ILLNESS: 57F w/ pmhx of HTN, GERD, chronic opioid use, depression presented to the ED with complaints of shortness of breath that started last night while she was asleep. Pt states she was trying to sleep in bed when she started become short of breath around 8pm last night. This morning she states that shortness of breath became worse and complains of associated headache that she rates 3/10. Headache is located bilaterally in temporal region. She reports that she had a similar episode about 1 year ago. Admits to subjective fevers, chills, hot/cold flashes. Denies chest pain, abdominal pain, nausea/vomiting, urinary/bowel symptoms. She does admit to chronic L knee pain due to arthritis. ER course was notable for: (1) BP 148/89, Hgb 9.7, Hct 30.4, BUN/Cr 21/1.3, CK 251, trops neg, BNP 763.3 (2) Labetalol 10 mg IVP/200 mg IVPB, Morphine 6 mg IVP/10 mg (3) CTA showed small R upper lobe subsegmental branch embolus, b/l pulmonary nodules. Recent Travel: Denies PAST MEDICAL HISTORY: HTN GERD Chronic opioid use Depression PAST SURGICAL HISTORY: Denies Social History: Smoking: Never used Alcohol: Never used Drugs: Never used Family History: Mother: Asthma Sisters: at 43, 45 of [place] Father: [place], kidney disease Allergies No Known Allergies Allergy (Verified 05/17/18 12:24) HOME MEDICATIONS: Home Medications Medication Instructions Recorded Aspirin [Ecotrin] 81 mg PO DAILY 03/24/16 Bupropion HCl 75 mg PO BID 08/03/17 Carvedilol [Coreg] 25 mg PO BID 08/03/17 Cyclobenzaprine HCl 10 mg PO DAILY 08/04/17 Oxycodone HCl/Acetaminophen 1 each PO Q8H PRN MDD 3/day 08/04/17 [Oxycodone-Acetaminophen 10-325] Quetiapine Fumarate [Seroquel -] 200 mg PO HS 08/04/17 Venlafaxine HCl ER [Effexor Xr -] 75 mg PO TID 01/12/18 Zolpidem Tartrate [Ambien] 10 mg PO HS 01/12/18 Buspirone HCl [Buspar -] 15 mg PO DAILY 05/17/18 Hydralazine HCl 50 mg PO DAILY 05/17/18 Oxycodone HCl 5 mg PO BID PRN #10 capsule MDD 2 05/17/18 REVIEW OF SYSTEMS CONSTITUTIONAL: fever, chills, Absent: diaphoresis, generalized weakness, malaise, loss of appetite, weight change HEENT: Absent: throat pain, throat swelling, difficulty swallowing, eye pain, visual changes CARDIOVASCULAR: Absent: chest pain, syncope, palpitations, irregular heart rate, lightheadedness , peripheral edema RESPIRATORY: shortness of breath Absent: cough, dyspnea with exertion, orthopnea, wheezing GASTROINTESTINAL: Absent: abdominal pain, abdominal distension, nausea, vomiting, diarrhea, constipation, melena, hematochezia GENITOURINARY: Absent: dysuria, frequency, urgency, hesitancy, hematuria, flank pain MUSCULOSKELETAL: Absent: myalgia, arthralgia, joint swelling, back pain, neck pain ENDOCRINE: +hot and cold flashes Absent: unexplained weight gain, unexplained weight loss, heat intolerance, cold intolerance NEUROLOGIC: headache Absent: focal weakness or paresthesias, dizziness, unsteady gait, seizure, bladder or bowel incontinence PSYCHIATRIC: depression PHYSICAL EXAMINATION Vital Signs - 24 hr 05/17/18 05/17/18 05/17/18 12:22 13:55 17:52 Temperature 98.6 F 98.0 F Pulse Rate 104 H Pulse Rate [ 96 H 87 Right Radial] Respiratory 20 20 17 Rate Blood Pressure 157/117 H Blood Pressure 155/106 H 148/89 [Right Arm] O2 Sat by Pulse 100 100 Oximetry (%) 05/17/18 21:37 Temperature 98.9 F Pulse Rate Pulse Rate [ 89 Right Radial] Respiratory 18 Rate Blood Pressure Blood Pressure 145/80 [Right Arm] O2 Sat by Pulse 100 Oximetry (%) GENERAL: AAOx3. NAD. Mildly uncomfortable in bed. HEENT: AT/NC. EOMI. OTIS. Moist mucus membranes. NECK: Supple, no LAD/JVD. LUNGS: CTA B/L. No w/r/r noted. Symmetric chest rise. No accessory muscle use. HEART: RRR. Normal S1, S2. No murmurs noted. Chest pain non-reproducible ABDOMEN: Obese. Soft, ND/NT +BS in all 4 Q's. No masses or bruits noted. MUSCULOSKELETAL: 5/5 muscle strength in b/l u/l extremities. L leg swollen lower thigh to upper calf, non-erythematous, no pitting edema, tender to touch. NEUROLOGICAL: Normal speech. CN II-XII intact. PSYCHIATRIC: Cooperative. Good eye contact. Appropriate mood and affect. SKIN: Varicose vein medial R knee. Warm, dry, normal turgor, normal capillary refill. CBC, BMP 05/17/18 12:50 05/17/18 12:50 Abnormal Lab Results 05/17/18 05/17/18 12:50 12:50 Hgb 9.7 L Hct 30.4 L MCV 78.7 L MCH 25.1 L MCHC 31.9 L MPV 7.3 L Chloride 109 H BUN 21 H Creatine Kinase 251 H B-Natriuretic Peptide 763.3 H ASSESSMENT/PLAN: 57F w/ pmhx of HTN, GERD, chronic opioid use, depression admitted to the hospital for sob and a CT Chest (+) for subsegmental PE (SSPE). #Shortness of breath 2/2 SSPE vs. OHS vs. AMANDA; CT chest revealed +SSPE, however given the size, pt's symptoms could be attributed to other factors as well. With pt's body habitus, OHS and/or AMANDA are possible diagnoses as cause of sob. -Eliquis 5 mg PO BID -Monitor on tele -Echo ordered -Pulm consult ordered -Cardio consult ordered -LLE doppler ordered to r/o DVT #Anemia, unclear etiology; Hgb 9.7 -Iron studies/retic count/FOBT ordered #HTN Resume home meds: -Carvedilol 25 mg #Depression Resume home meds: -Bupropion 75 mg PO BID -Buspirone 15 mg PO BID -Quetiapine Fumarate 200 mg PO HS -Venlafaxine 75 mg PO TID -Zolpidem 10 mg PO HS PRN for sleep #DVT Ppx -started on Eliquis 5 mg PO BID dispo -admit to med-surg Visit type - Emergency Visit Emergency Visit: Yes ED Registration Date: 05/17/18 Care time: The patient presented to the Emergency Department on the above date and was hospitalized for further evaluation of their emergent condition. - New Patient This patient is new to me today: Yes Date on this admission: 05/18/18 - Critical Care Critical Care patient: No
[2018-05-17] MEDS ORDERED: MORPHINE SULFATE 2 MG/ML VIAL ONE (23:09)
[2018-05-17] MEDS: MORPHINE SULFATE 2 MG/ML VIAL IVPUSH PRN (23:12)
[2018-05-18] MEDS: ZOLPIDEM TARTRATE 5 MG TABLET PO PRN ×2 (00:32→22:09)
[2018-05-18 00:53] VITALS: BMI 40.8
[2018-05-18] MEDS: MORPHINE SULFATE 2 MG/ML VIAL IVPUSH PRN (04:35)
[2018-05-18] MEDS: VENLAFAXINE HCL 75 MG TABLET PO SCH ×3 (05:56→21:17)
[2018-05-18 07:08] LABS: BASO % 0.6 % (0-2.0); HEMATOCRIT 29.4 % (32.4-45.2); HEMOGLOBIN 9.3 GM/dL (10.7-15.3); LYMPH % 28.4 % (8-40); MCH 24.8 pg (25.7-33.7); MCHC 31.8 g/dl (32.0-36.0); MEAN CELL VOLUME 78.1 fl (80-96); MEAN PLT VOLUME 7.2 fl (7.5-11.1); MONO % 9.7 % (3.8-10.2); NEUT % 59.3 % (42.8-82.8); PLATELET COUNT 389 K/MM3 (134-434); RBC 3.77 M/mm3 (3.60-5.2); RDW 15.7 % (11.6-15.6)
[2018-05-18 07:51] LABS: ALBUMIN 3.4 g/dl (3.4-5.0); ALK PHOS 65 U/L (45-117); ANION GAP 8 MMOL/L (8-16); BILIRUBIN,TOTAL 0.4 mg/dL (0.2-1); BLOOD UREA NITROGEN 19 mg/dL (7-18); CALCIUM 8.6 mg/dL (8.5-10.1); CHLORIDE 106 mmol/L (98-107); CO2 24 mmol/L (21-32); CREATININE 1.2 mg/dL (0.55-1.3); GLUCOSE,RANDOM 88 mg/dL (74-106); POTASSIUM 3.7 mmol/L (3.5-5.1); SGOT/AST 15 U/L (15-37); SGPT/ALT 22 U/L (13-61); SODIUM 138 mmol/L (136-145); TOT PROT 7.3 g/dl (6.4-8.2)
[2018-05-18] MEDS: buPROPion HCL 75 MG TABLET PO SCH ×2 (08:08→21:17)
[2018-05-18 10:09] LABS: ARTERIAL BLD GAS O2 SATURATION 98.1 % (90-98.9); ARTERIAL BLOOD GAS PCO2 31.9 mmHg (35-45); ARTERIAL BLOOD GAS PO2 98.7 mmHg (80-100); ARTERIAL BLOOD GAS pH 7.45 (7.35-7.45)
[2018-05-18] MEDS: ASPIRIN COATED 81 MG TABLET.EC PO SCH (10:12)
[2018-05-18] MEDS: APIXABAN 5 MG TABLET PO SCH ×2 (10:12→21:13)
[2018-05-18] MEDS: CYCLOBENZAPRINE HCL 10 MG TABLET (FP) PO SCH (10:12)
[2018-05-18] MEDS: CARVEDILOL 25 MG TABLET (FP) PO SCH ×2 (10:12→21:13)
[2018-05-18 10:17] LABS: ALLENS TEST POSITIVE
[2018-05-18] MEDS: busPIRone HCL 5 MG TABLET PO SCH ×2 (10:27→21:18)
[2018-05-18] MEDS ORDERED: PT OWN MED DRAWER 7, Y5N ONE ×3 (10:31→21:04)
[2018-05-18] MEDS: oxyCODONE HCL 5 MG TABLET PO PRN ×3 (10:35→21:14)
[2018-05-18] MEDS: ACETAMINOPHEN 325 MG TABLET (FP) PO PRN ×3 (10:38→21:15)
--- NOTE | 2018-05-18 11:37 | CON.CARD ---
Cardiology Consult (text) - Consultation Consultation Note: cc: sob hpi: 57 f hx htn, gerd here with sob. Had been feeling well until yesterday when noticed sob/pagan. No cp palps dizzy loc pnd orthopnea le edema. Found to have small PE here. No hx hrt dz. pmh: per hpi psh: nc social: no tob fam: mom mi 40s ros: per hpi; no nvd fever cough betts vision changes dysuria gib hematuria meds: Home Medications Medication Instructions Recorded Aspirin [Ecotrin] 81 mg PO DAILY 03/24/16 Bupropion HCl 75 mg PO BID 08/03/17 Carvedilol [Coreg] 25 mg PO BID 08/03/17 Cyclobenzaprine HCl 10 mg PO DAILY 08/04/17 Oxycodone HCl/Acetaminophen 1 each PO Q8H PRN MDD 3/day 08/04/17 [Oxycodone-Acetaminophen 10-325] Quetiapine Fumarate [Seroquel -] 200 mg PO HS 08/04/17 Venlafaxine HCl ER [Effexor Xr -] 75 mg PO TID 01/12/18 Zolpidem Tartrate [Ambien] 10 mg PO HS 01/12/18 Oxycodone HCl 5 mg PO BID PRN #10 capsule MDD 2 05/17/18 Buspirone HCl 15 mg PO BID 05/18/18 pe: Vital Signs Period Temp Pulse Resp BP Sys/Vilchis Pulse Ox Last 24 Hr 98.0 F-98.9 F 87-124 17-22 145-160/76-117 97-100 nad no jvd rrr s1s2 no mrg cta bl nl eff aaox3 no le e/c/c abd nt nd pos bs no jaundice diaphoresis pos dp pt no carotid bruits Laboratory Last Values WBC 6.0 K/mm3 (4.0-10.0) 05/18/18 06:23 RBC 3.77 M/mm3 (3.60-5.2) 05/18/18 06:23 Hgb 9.3 GM/dL (10.7-15.3) L 05/18/18 06:23 Hct 29.4 % (32.4-45.2) L 05/18/18 06:23 MCV 78.1 fl (80-96) L 05/18/18 06:23 MCH 24.8 pg (25.7-33.7) L 05/18/18 06:23 MCHC 31.8 g/dl (32.0-36.0) L 05/18/18 06:23 RDW 15.7 % (11.6-15.6) H 05/18/18 06:23 Plt Count 389 K/MM3 (134-434) 05/18/18 06:23 MPV 7.2 fl (7.5-11.1) L 05/18/18 06:23 Absolute Neuts (auto) 3.6 K/mm3 (1.5-8.0) 05/18/18 06: Neutrophils % 59.3 % (42.8-82.8) 05/18/18 06: Lymphocytes % 28.4 % (8-40) D 05/18/18 06: Monocytes % 9.7 % (3.8-10.2) 05/18/18: Eosinophils % 2.0 % (0-4.5) 05/18/18: Basophils % 0.6 % (0-2.0) 05/18/18: Nucleated RBC % 0 % (0-0) 05/18/18 06: Retic Count 1.52 % (0.5-1.5) H 05/18/18 06:23 PT with INR 11.80 SEC (9.7-13.0) 05/17/18 12:50 INR 1.00 (0.83-1.09) 05/17/18 12:50 PTT (Actin FS) 34.6 SECONDS (25.2-36.5) 05/17/18 12:50 Puncture Site Left radial 05/18/18 10:03 ABG pH 7.45 (7.35-7.45) 05/18/18 10:03 ABG pCO2 at Pt Temp 31.9 mmHg (35-45) L 05/18/18 10:03 ABG pO2 at Pt Temp 98.7 mmHg (80-100) 05/18/18 10:03 ABG HCO3 22.0 meq/L (22-26) 05/18/18 10:03 ABG O2 Sat (Measured) 98.1 % (90-98.9) 05/18/18 10:03 ABG O2 Content 13.4 % vol (15-22) L 05/18/18 10:03 ABG Base Excess -1.0 meq/l (-2-2) 05/18/18 10:03 Gopi Test Positive 05/18/18 10:03 Oxygen Flow Rate Yes 05/18/18 10:03 Sodium 138 mmol/L (136-145) 05/18/18 06:23 Potassium 3.7 mmol/L (3.5-5.1) 05/18/18 06:23 Chloride 106 mmol/L (98-107) 05/18/18 06:23 Carbon Dioxide 24 mmol/L (21-32) 05/18/18 06:23 Anion Gap 8 MMOL/L (8-16) 05/18/18 06:23 BUN 19 mg/dL (7-18) H 05/18/18 06:23 Creatinine 1.2 mg/dL (0.55-1.3) 05/18/18 06:23 Creat Clearance w eGFR 46.14 (>60) 05/18/18 06:23 Random Glucose 88 mg/dL (74-106) 05/18/18 06:23 Calcium 8.6 mg/dL (8.5-10.1) 05/18/18 06:23 Ferritin 32.1 ng/ml (8-388) 05/18/18 06:23 Total Bilirubin 0.4 mg/dL (0.2-1) 05/18/18 06:23 AST 15 U/L (15-37) 05/18/18 06:23 ALT 22 U/L (13-61) 05/18/18 06:23 Alkaline Phosphatase 65 U/L (45-117) 05/18/18 06:23 Creatine Kinase 251 IU/L (26-192) H 05/17/18 12:50 Creatine Kinase Index 0.7 % (0.0-5.0) 05/17/18 12:50 CK-MB (CK-2) 2.0 ng/mL (0.5-3.6) 05/17/18 12:50 Troponin I < 0.02 ng/ml (0.00-0.05) 05/17/18 12:50 B-Natriuretic Peptide 763.3 pg/ml (5-125) H 05/17/18 12:50 Total Protein 7.3 g/dl (6.4-8.2) 05/18/18 06:23 Albumin 3.4 g/dl (3.4-5.0) 05/18/18 06:23 cta chest: small rul pe, no chf ecg: sr, pac, lvh, nl intervals, no ischemic changes a/p: 57 f hx htn, gerd here with sob. sob, PE: -no signs chf or acs -echo pending -possibly sob 2/2 PE. Cont ac. htn: -cont coreg gerd: -stable sxs
--- NOTE | 2018-05-18 11:59 | ECHO ---
Name: CHARLIE URIAS Exam:Adult Echocardiogram Study Date: 05/18/2018 11:01 AM Age: 57 yrs Reason For Study: R/O CHF Height: 66 in Weight: 240 lb BSA: 2.2 m2 MMode/2D Measurements & Calculations IVSd: 1.0 cm Ao root diam: 2.9 cm LVIDd: 5.9 cm LA dimension: 4.5 cm LVIDs: 5.0 cm LVPWd: 0.95 cm EDV(Teich): 176.0 ml ESV(Teich): 116.3 ml Doppler Measurements & Calculations MV E max jv: 71.3 cm/sec MR max jv: 412.5 cm/sec MV A max jv: 27.4 cm/sec MR max P.2 mmHg MV E/A: 2.6 MV dec time: 0.14 sec PI end-d jv: 122.2 cm/sec Lat Peak E' Jv: 3.2 cm/sec Lat E/e': 22.2 Left Ventricle The left ventricle is mildly dilated. Ejection Fraction = <15%. Left ventricular systolic function is severely reduced. The transmitral spectral Doppler flow pattern is suggestive of restrictive physiology. There is severe global hypokinesis of the left ventricle. Right Ventricle The right ventricle is not well visualized. The right ventricle is grossly normal size. The right eli tricular systolic function is grossly normal. Atria The left atrium is mildly dilated. Mitral Valve The mitral valve is grossly normal. There is no mitral valve stenosis. There is mild mitral regurgita tion. Tricuspid Valve The tricuspid valve is not well visualized, but is grossly normal. There is mild tricuspid regurgitat ion. Aortic Valve No hemodynamically significant valvular aortic stenosis. Pulmonic Valve The pulmonic valve is not well seen, but is grossly normal. Mild pulmonic valvular regurgitation. Great Vessels The aortic root is normal size. Pericardium/Pleura There is no pericardial effusion. Interpretation Summary Ejection Fraction = <15%. Left ventricular systolic function is severely reduced. The transmitral spectral Doppler flow pattern is suggestive of restrictive physiology. There is severe global hypokinesis of the left ventricle. The left atrium is mildly dilated. There is mild mitral regurgitation. There is mild tricuspid regurgitation. There is no pericardial effusion. MD Shin Avery 05/18/2018 11:59 AM
--- NOTE | 2018-05-18 14:22 | CON.PULM ---
Consult Consult Specialty:: PULMONARY Referred by:: PMDarrel Reason for Consultation:: PE - History of Present Illness Chief Complaint: SOB/LEFT KNEE PAIN History of Present Illness: The patient is a 57 year old female with a PMH of HTN, GERD, L knee pain ( currently waiting cardiac pre-clearance for knee replacement surgery) who presents to our ED c/o shortness of breath. The shortness of breath started acutely last night and is intermittent, without any associated chest pain, palpitations or lightheadedness. Notes h/o TIRADO for 1+ year. Attributes shortness of breath to anxiety about her life including her knee pain, her children and her blood pressure. Patient states she is in the process of switching pain clinics (currently sees Dr. Josue in the [place]) because her current doctor only gives her Percocet TID and it is not sufficiently controlling her pain. Found to have a subsegmental PE in RUL. Started on A/C, seen now crying with left knee pain requesting pain meds. 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 No: AFIB Pulmonary: No: COPD, O2 Dependent Gastrointestinal: Yes: GERD Hepatobiliary: No: Cirrhosis Renal/: No: Renal Failure Reproductive: Yes: Postmenopausal ...LMP: 09/23/13 ...: No Heme/Onc: Yes: Anemia Musculoskeletal: Yes: Other (left knee pain requiring replacement) - Alcohol/Substance Use Hx Alcohol Use: No - Smoking History Smoking history: Never smoked Have you smoked in the past 12 months: No Home Medications - Allergies Allergies/Adverse Reactions: Allergies Allergy/AdvReac Type Severity Reaction Status Date / Time No Known Allergies Allergy Verified 05/17/18 12:24 - Home Medications Home Medications: Ambulatory Orders Aspirin [Ecotrin] 81 mg PO DAILY 03/24/16 Bupropion HCl 75 mg PO BID 08/03/17 Carvedilol [Coreg] 25 mg PO BID 08/03/17 Cyclobenzaprine HCl 10 mg PO DAILY 08/04/17 Oxycodone HCl/Acetaminophen [Oxycodone-Acetaminophen 10-325] 1 each PO Q8H PRN MDD 3/day 08/04/17 Quetiapine Fumarate [Seroquel -] 200 mg PO HS 08/04/17 Venlafaxine HCl ER [Effexor Xr -] 75 mg PO TID 01/12/18 Zolpidem Tartrate [Ambien] 10 mg PO HS 01/12/18 Oxycodone HCl 5 mg PO BID PRN #10 capsule MDD 2 05/17/18 Buspirone HCl 15 mg PO BID 05/18/18 Family Disease History - Family Disease History Family History: Unremarkable Review of Systems - Review of Systems Constitutional: denies: Fever Eyes: denies: Blurred Vision HENT: denies: Difficult Swallowing Neck: denies: Decreased ROM Cardiovascular: reports: Shortness of Breath. denies: Chest Pain, Palpitations Respiratory: reports: Exercise Intolerance, SOB on Exertion. denies: Hemoptysis , Wheezing Gastrointestinal: denies: Abdominal Pain Genitourinary: denies: Burning Breasts: reports: No Symptoms Reported Musculoskeletal: reports: Joint Pain (left knee) Neurological: reports: No Symptoms Endocrine: reports: No Symptoms Physical Exam Vital Sings: Vital Signs Temperature 98.6 F 05/18/18 08:55 Pulse Rate 124 H 05/18/18 10:18 Respiratory Rate 20 05/18/18 09:00 Blood Pressure 160/110 H 05/18/18 08:55 O2 Sat by Pulse Oximetry (%) 97 05/18/18 10:18 Constitutional: Yes: Calm Eyes: Yes: EOM Intact HENT: Yes: Normocephalic Neck: Yes: Trachea Midline Cardiovascular: Yes: Regular Rate and Rhythm, S1, S2 Respiratory: Yes: CTA Bilaterally Gastrointestinal: Yes: Normal Bowel Sounds, Abdomen, Obese Renal/: Yes: WNL Breast(s): Yes: WNL Musculoskeletal: Yes: WNL Extremities: Yes: Other (severe left knee pain to rom) Integumentary: Yes: WNL Neurological: Yes: Alert Labs: CBC, BMP 05/18/18 06:23 05/18/18 06:23 ABG Results ABG pH 7.45 (7.35-7.45) 05/18/18 10:03 ABG pCO2 at Pt Temp 31.9 mmHg (35-45) L 05/18/18 10:03 ABG pO2 at Pt Temp 98.7 mmHg (80-100) 05/18/18 10:03 ABG HCO3 22.0 meq/L (22-26) 05/18/18 10:03 ABG O2 Sat (Measured) 98.1 % (90-98.9) 05/18/18 10:03 ABG O2 Content 13.4 % vol (15-22) L 05/18/18 10:03 ABG Base Excess -1.0 meq/l (-2-2) 05/18/18 10:03 rest reviewed Imaging - Results Chest X-ray: Report Reviewed, Image Reviewed Cat Scan: Report Reviewed, Image Reviewed Problem List - Problems (1) Pulmonary embolism Code(s): I26.99 - OTHER PULMONARY EMBOLISM WITHOUT ACUTE COR PULMONALE (2) Left anterior knee pain Code(s): M25.562 - PAIN IN LEFT KNEE (3) Arthritis of left knee Code(s): M17.12 - UNILATERAL PRIMARY OSTEOARTHRITIS, LEFT KNEE (4) Chronic pain Code(s): G89.29 - OTHER CHRONIC PAIN Qualifiers: Chronic pain type: chronic pain syndrome Qualified Code(s): G89.4 - Chronic pain syndrome Assessment/Plan AGREE WITH NOAC FOR SUBSEGMENTAL PE CHRONIC PAIN SYNDROME/LEFT KNEE REQUIRING TKR GLOBAL HYPOKINESIS/REDUCED EJECTION FRACTION < 15% HTN POORLY CONTROLLED/CLOSE CARDIO FOLLOW UP WOULD CONSIDER TELE MONITORING IF SOB/CP INCREASES Lencho MIR MD
--- NOTE | 2018-05-18 14:31 | PN ---
Teaching Attending Note Name of Resident: Harshad Mccarty ATTENDING PHYSICIAN STATEMENT I saw and evaluated the patient. I reviewed the resident's note and discussed the case with the resident. I agree with the resident's findings and plan as documented with exceptions below. SUBJECTIVE: patient seen and examined, overall unchanged, no new complaints. OBJECTIVE: Vital Signs Period Temp Pulse Resp BP Sys/Vilchis Pulse Ox Last 24 Hr 98.0 F-98.9 F 87-124 17-22 145-160/76-110 97-100 Intake & Output 05/15/18 05/16/18 05/17/18 05/18/18 23:59 23:59 23:59 23:59 Weight 240 lb 253 lb General: sitting in bed in no acute distress, no tachypnea or use of accessory muscles of respiration, able to talk in full sentences CVS;S1S2 regular Chest: limited exam given body habitus, no rales or wheezing, positive air entry Abdomen:Soft, obese, NT Extremities: left knee chronic swelling, non warm non tender Active Medications Acetaminophen (Tylenol -) 650 mg PO TID PRN PRN Reason: PAIN SCALE 6-10 Last Admin: 05/18/18 10:38 Dose: 650 mg Apixaban (Eliquis -) 5 mg PO BID [facility] Last Admin: 05/18/18 10:12 Dose: 5 mg Aspirin (Ecotrin -) 81 mg PO DAILY [facility] Last Admin: 05/18/18 10:12 Dose: 81 mg Bupropion HCl (Wellbutrin -) 75 mg PO BID@0800,2000 [facility] Last Admin: 05/18/18 08:08 Dose: 75 mg Buspirone HCl (Buspar -) 15 mg PO BID [facility] Last Admin: 05/18/18 10:27 Dose: 15 mg Carvedilol (Coreg -) 25 mg PO BID [facility] Last Admin: 05/18/18 10:12 Dose: 25 mg Cyclobenzaprine HCl (Flexeril -) 10 mg PO DAILY [facility] Last Admin: 05/18/18 10:12 Dose: 10 mg Oxycodone HCl (Roxicodone -) 10 mg PO TID PRN PRN Reason: PAIN SCALE 6-10 Last Admin: 05/18/18 14:14 Dose: 10 mg Quetiapine Fumarate (Seroquel -) 200 mg PO [facility] Venlafaxine HCl (Effexor -) 75 mg PO TID [facility] Last Admin: 05/18/18 13:28 Dose: 75 mg Zolpidem Tartrate (Ambien -) 10 mg PO HS PRN PRN Reason: INSOMNIA Last Admin: 05/18/18 00:32 Dose: 10 mg Laboratory Results - last 24 hr 05/18/18 05/18/18 05/18/18 06:23 06:23 06:23 WBC 6.0 RBC 3.77 Hgb 9.3 L Hct 29.4 L MCV 78.1 L MCH 24.8 L MCHC 31.8 L RDW 15.7 H Plt Count 389 MPV 7.2 L Absolute Neuts (auto) 3.6 Neutrophils % 59.3 Lymphocytes % 28.4 D Monocytes % 9.7 Eosinophils % 2.0 Basophils % 0.6 Nucleated RBC % 0 Retic Count 1.52 H Puncture Site ABG pH ABG pCO2 at Pt Temp ABG pO2 at Pt Temp ABG HCO3 ABG O2 Sat (Measured) ABG O2 Content ABG Base Excess Gopi Test Oxygen Flow Rate Sodium 138 Potassium 3.7 Chloride 106 Carbon Dioxide 24 Anion Gap 8 BUN 19 H Creatinine 1.2 Creat Clearance w eGFR 46.14 Random Glucose 88 Calcium 8.6 Ferritin 32.1 Total Bilirubin 0.4 AST 15 ALT 22 Alkaline Phosphatase 65 Total Protein 7.3 Albumin 3.4 05/18/18 05/18/18 06:23 10:03 WBC RBC Hgb Hct MCV MCH MCHC RDW Plt Count MPV Absolute Neuts (auto) Neutrophils % Lymphocytes % Monocytes % Eosinophils % Basophils % Nucleated RBC % Retic Count Puncture Site Left radial ABG pH 7.45 ABG pCO2 at Pt Temp 31.9 L ABG pO2 at Pt Temp 98.7 ABG HCO3 22.0 ABG O2 Sat (Measured) 98.1 ABG O2 Content 13.4 L ABG Base Excess -1.0 Gopi Test Positive Oxygen Flow Rate Yes Sodium Potassium Chloride Carbon Dioxide Anion Gap BUN Creatinine Creat Clearance w eGFR Random Glucose Calcium Ferritin Cancelled Total Bilirubin AST ALT Alkaline Phosphatase Total Protein Albumin 2d echo EF <15%, severe global hypokinesis Duplex LE neg for PE ASSESSMENT AND PLAN: 57 yof with PMhx of morbid obesity, Left knee pain, opioid dependence, HTN, admitted with dyspnea, found with subsegmental PE and severe dilated cardiomyopathy. -Dyspnea -POssible acute subsegmental PE -Newly diagnosed severe dilated cardiomyopathy -Opioid dependence -HTN Plan: 2d Echo noted, more likely to explain her dyspnea than suspect small subsegmental PE. Transfer to telemetry to assess for arrhythmia. Follow up with cardiology, anticipate ischemic w/u for the same. Drug screen eliquis. BP control with home coreg. d.c morphine, resume home percocet ([facility] registry reviewed #[id number] Oxycodone/ acetaminophen 90 tables on 05/09/2018) DVTPPx as above Dispo pending clinical improvement. Anticipate cardiac w/u given new diagnosed concerning cardiomypathy and ongoing symptoms of dyspnea.
--- NOTE | 2018-05-18 15:01 | PN ---
Physical Exam: SUBJECTIVE: Patient seen and examined this AM. She stats that her SOB is improved from yesterday. Pt states she has not ever had a sleep study in the past. Discussed with patient that she should consider evaluation as an outpatient. She complains of left knee pain that is chronic for her. OBJECTIVE: Vital Signs Period Temp Pulse Resp BP Sys/Vilchis Pulse Ox Last 24 Hr 98.0 F-98.9 F 87-124 17-22 145-160/76-110 97-100 GENERAL: A&O, morbidly obese, no acute distress HEAD: Normocephalic, atraumatic. EYES: PERRL, no scleral icterus EARS, NOSE, THROAT: oropharynx clear without exudates. Moist mucous membranes. NECK: supple without lymphadenopathy LUNGS: CTA b/l, no crackles or wheezes HEART: Tachycardic and regular rhythm, normal S1 and S2 without murmur ABDOMEN: Soft, nontender to palpation, normoactive bowel sounds MUSCULOSKELETAL: No bony deformities or tenderness. EXTREMITIES: 2+ pulses, warm, well-perfused. No peripheral edema. NEUROLOGICAL: Cranial nerves II-XII grossly intact. Normal speech. PSYCHIATRIC: Cooperative. Good eye contact. Appropriate mood and affect. SKIN: Warm, dry, no rashes or lesions noted Laboratory Results - last 24 hr 05/18/18 05/18/18 05/18/18 06:23 06:23 06:23 WBC 6.0 RBC 3.77 Hgb 9.3 L Hct 29.4 L MCV 78.1 L MCH 24.8 L MCHC 31.8 L RDW 15.7 H Plt Count 389 MPV 7.2 L Absolute Neuts (auto) 3.6 Neutrophils % 59.3 Lymphocytes % 28.4 D Monocytes % 9.7 Eosinophils % 2.0 Basophils % 0.6 Nucleated RBC % 0 Retic Count 1.52 H Puncture Site ABG pH ABG pCO2 at Pt Temp ABG pO2 at Pt Temp ABG HCO3 ABG O2 Sat (Measured) ABG O2 Content ABG Base Excess Gopi Test Oxygen Flow Rate Sodium 138 Potassium 3.7 Chloride 106 Carbon Dioxide 24 Anion Gap 8 BUN 19 H Creatinine 1.2 Creat Clearance w eGFR 46.14 Random Glucose 88 Calcium 8.6 Ferritin 32.1 Total Bilirubin 0.4 AST 15 ALT 22 Alkaline Phosphatase 65 Total Protein 7.3 Albumin 3.4 05/18/18 05/18/18 06:23 10:03 WBC RBC Hgb Hct MCV MCH MCHC RDW Plt Count MPV Absolute Neuts (auto) Neutrophils % Lymphocytes % Monocytes % Eosinophils % Basophils % Nucleated RBC % Retic Count Puncture Site Left radial ABG pH 7.45 ABG pCO2 at Pt Temp 31.9 L ABG pO2 at Pt Temp 98.7 ABG HCO3 22.0 ABG O2 Sat (Measured) 98.1 ABG O2 Content 13.4 L ABG Base Excess -1.0 Gopi Test Positive Oxygen Flow Rate Yes Sodium Potassium Chloride Carbon Dioxide Anion Gap BUN Creatinine Creat Clearance w eGFR Random Glucose Calcium Ferritin Cancelled Total Bilirubin AST ALT Alkaline Phosphatase Total Protein Albumin Active Medications Generic Name Dose Route Start Last Admin Trade Name Freq PRN Reason Stop Dose Admin Acetaminophen 650 mg 05/18/18 09:54 05/18/18 10:38 Tylenol - PO 650 mg TID PRN Administration PAIN SCALE 6-10 Apixaban 5 mg 05/17/18 22:00 05/18/18 10:12 Eliquis - PO 5 mg BID EMILI Administration Aspirin 81 mg 05/18/18 10:00 05/18/18 10:12 Ecotrin - PO 81 mg DAILY EMILI Administration Bupropion HCl 75 mg 05/18/18 08:00 05/18/18 08:08 Wellbutrin - PO 75 mg BID@0800,1999 EMILI Administration Buspirone HCl 15 mg 05/18/18 10:00 05/18/18 10:27 Buspar - PO 15 mg BID EMILI Administration Carvedilol 25 mg 05/18/18 10:00 05/18/18 10:12 Coreg - PO 25 mg BID EMILI Administration Cyclobenzaprine HCl 10 mg 05/18/18 10:00 05/18/18 10:12 Flexeril - PO 10 mg DAILY EMILI Administration Oxycodone HCl 10 mg 05/18/18 09:53 05/18/18 14:14 Roxicodone - PO 10 mg TID PRN Administration PAIN SCALE 6-10 Quetiapine Fumarate 200 mg 05/18/18 22:00 Seroquel - PO HS EMILI Venlafaxine HCl 75 mg 05/18/18 06:00 05/18/18 13:28 Effexor - PO 75 mg TID EMILI Administration Zolpidem Tartrate 10 mg 05/18/18 00:22 05/18/18 00:32 Ambien - PO 10 mg HS PRN Administration INSOMNIA ASSESSMENT/PLAN: 57F PMH of HTN, GERD, chronic opioid use for Knee pain, depression admitted to the hospital for SOB and a CT Chest for subsegmental PE. PE -CTA noted with small subsegmental PE in AMANDA -Started on Eliquis 5 mg PO BID -Pulmonology Consult appreciated Combined Systolic/Diastolic Left sided Heart Failure -Echo noted with Dilation and hypokinesis of Left ventricle, EF <15% -Cardiology Consult appreciated, case discussed -Continue home Coreg 25 mg PO BID -Start Lisinopril 10 mg PO Daily -Transfer to Telemetry -Does not need diuresis at this time with no signs of fluid overload HTN -Continue Coreg and Lisinopril as above Chronic Knee Pain -Pt on Percocet 10 TID at home -States she often takes Motrin in addition to percocets -Pt states pain is still not controlled and she knows that she needs surgery for resolution of pain -Discussed with patient in detail that we will maintain her pain regimen as prescribed outpatient -Avoid Motrin as patient on Eliquis -Can trial lidocaine patch if pain worsens overnight DVT Prophylaxis -Eliquis 5 mg PO BID FEN -Fluids: None -Electrolytes: No electrolyte abnormalities, BMP in AM -Nutrition: Sodium Controlled Diet Disposition Transfer to Telemetry Visit type - Emergency Visit Emergency Visit: Yes ED Registration Date: 05/17/18 Care time: The patient presented to the Emergency Department on the above date and was hospitalized for further evaluation of their emergent condition. - New Patient This patient is new to me today: Yes Date on this admission: 05/18/18 - Critical Care Critical Care patient: No
[2018-05-18] MEDS: LISINOPRIL 10 MG TABLET (FP) PO SCH (15:30)
[2018-05-18 17:38] LABS: COCAINE, UR NEGATIVE ng/ml (CUTOFF=300); METHADONE, UR NEGATIVE ng/ml (CUTOFF=300); PHENCYCLIDINE,URINE NEGATIVE ng/ml (CUTOFF=25); URINE AMPHETAMINES NEGATIVE ng/ml (CUTOFF=500); URINE BARBITURATES NEGATIVE ng/ml (CUTOFF=200)
[2018-05-18 17:43] LABS: URINE APPEARANCE CLEAR; URINE BILIRUBIN NEGATIVE (<2.0 mg/dL); URINE COLOR YELLOW; URINE GLUCOSE (UA) NEGATIVE (NEGATIVE); URINE KETONE NEGATIVE (NEGATIVE); URINE LEUK ESTERASE NEGATIVE (NEGATIVE); URINE NITRITE NEGATIVE (NEGATIVE); URINE PROTEIN 1+ (NEGATIVE); URINE UROBILINOGEN NEGATIVE mg/dL (0.2-1.0)
[2018-05-18 17:59] LABS: EPI CELLS FEW /HPF (FEW); URINE MUCUS RARE
[2018-05-18 18:27] LABS: URINE BENZODIAZEPINES POSITIVE ng/ml (CUTOFF=200)
[2018-05-18 18:28] LABS: OPIATES, URI POSITIVE ng/ml (CUTOFF=300)
[2018-05-18] MEDS ORDERED: QUEtiapine FUMARATE 200 MG TABLET PO SCH (22:00)
[2018-05-19] MEDS: ACETAMINOPHEN 325 MG TABLET (FP) PO PRN ×3 (05:48→20:40)
[2018-05-19] MEDS: oxyCODONE HCL 5 MG TABLET PO PRN ×3 (05:48→20:38)
[2018-05-19] MEDS: VENLAFAXINE HCL 75 MG TABLET PO SCH ×3 (05:48→22:57)
[2018-05-19 06:08] LABS: SERUM IRON SATURATION 9 % (15-55); TOTAL IRON BINDING CAPACITY 395 ug/dL (250-450); UIBC 358 ug/dL (131-425)
[2018-05-19 07:56] LABS: HEMOGLOBIN 9.4 GM/dL (10.7-15.3); MCH 25.2 pg (25.7-33.7); MCHC 32.3 g/dl (32.0-36.0); MEAN CELL VOLUME 78.1 fl (80-96); PLATELET COUNT 348 K/MM3 (134-434); RBC 3.72 M/mm3 (3.60-5.2); RDW 15.2 % (11.6-15.6); WHITE BLOOD COUNT 5.4 K/mm3 (4.0-10.0)
[2018-05-19] MEDS ORDERED: PT OWN MED DRAWER 7, Y5N ONE ×3 (08:04→20:36)
[2018-05-19] MEDS: buPROPion HCL 75 MG TABLET PO SCH ×2 (08:07→20:43)
[2018-05-19 09:10] LABS: ANION GAP 9 MMOL/L (8-16); BLOOD UREA NITROGEN 27 mg/dL (7-18); CALCIUM 8.4 mg/dL (8.5-10.1); CHLORIDE 108 mmol/L (98-107); CO2 24 mmol/L (21-32); CREATININE 1.4 mg/dL (0.55-1.3); GLUCOSE,RANDOM 93 mg/dL (74-106); MAGNESIUM 2.2 mg/dL (1.8-2.4); PHOSPHOROUS 3.9 mg/dL (2.5-4.9); POTASSIUM 4.1 mmol/L (3.5-5.1); SODIUM 140 mmol/L (136-145)
[2018-05-19] MEDS: CARVEDILOL 25 MG TABLET (FP) PO SCH ×2 (09:25→21:15)
[2018-05-19] MEDS: ASPIRIN COATED 81 MG TABLET.EC PO SCH (09:25)
[2018-05-19] MEDS: LISINOPRIL 10 MG TABLET (FP) PO SCH (09:25)
[2018-05-19] MEDS: CYCLOBENZAPRINE HCL 10 MG TABLET (FP) PO SCH (09:25)
[2018-05-19] MEDS: busPIRone HCL 5 MG TABLET PO SCH ×2 (09:25→21:14)
[2018-05-19] MEDS: APIXABAN 5 MG TABLET PO SCH ×2 (09:25→21:15)
--- NOTE | 2018-05-19 11:55 | PN ---
Teaching Attending Note Name of Resident: Anthony Magana ATTENDING PHYSICIAN STATEMENT I saw and evaluated the patient. I reviewed the resident's note and discussed the case with the resident. I agree with the resident's findings and plan as documented with exceptions below. SUBJECTIVE: Patient seen and examined. overall unchanged, no new concerns. OBJECTIVE: Vital Signs Period Temp Pulse Resp BP Sys/Vilchis Pulse Ox Last 24 Hr 97.8 F-99.7 F 78-109 20-20 128-143/70-89 97-97 Intake & Output 05/16/18 05/17/18 05/18/18 05/19/18 23:59 23:59 23:59 23:59 Intake Total 1220 Balance 1220 Weight 240 lb 253 lb General: sitting in bed in no acute distress Chest: CTAB, no rales or wheezing, limited by body habitus Abdomen:soft, obese, NT Extremities; no new edema or tenderness, Left knee findings unchanged Active Medications Acetaminophen (Tylenol -) 650 mg PO TID PRN PRN Reason: PAIN SCALE 6-10 Last Admin: 05/19/18 05:48 Dose: 650 mg Apixaban (Eliquis -) [address] [facility] Last Admin: 05/19/18 09:25 Dose: 5 mg Aspirin (Ecotrin -) [address] [facility] Last Admin: 05/19/18 09:25 Dose: 81 mg Bupropion HCl (Wellbutrin -) 75 mg PO BID@0800,2000 [facility] Last Admin: 05/19/18 08:07 Dose: 75 mg Buspirone HCl (Buspar -) [address] [facility] Last Admin: 05/19/18 09:25 Dose: 15 mg Carvedilol (Coreg -) [address] [facility] Last Admin: 05/19/18 09:25 Dose: 25 mg Cyclobenzaprine HCl (Flexeril -) [address] [facility] Last Admin: 05/19/18 09:25 Dose: 10 mg Lisinopril (Prinivil) [address] [facility] Last Admin: 05/19/18 09:25 Dose: 10 mg Oxycodone HCl (Roxicodone -) 10 mg PO TID PRN PRN Reason: PAIN SCALE 6-10 Last Admin: 05/19/18 05:48 Dose: 10 mg Quetiapine Fumarate (Seroquel -) [address] [facility] Last Admin: 05/18/18 21:18 Dose: 200 mg Venlafaxine HCl (Effexor -) 75 mg PO TID [facility] Last Admin: 05/19/18 05:48 Dose: 75 mg Zolpidem Tartrate (Ambien -) 10 mg PO HS PRN PRN Reason: INSOMNIA Last Admin: 05/18/18 22:09 Dose: 10 mg Laboratory Results - last 24 hr 05/18/18 05/18/18 05/18/18 06:23 14:30 15:37 WBC RBC Hgb Hct MCV MCH MCHC RDW Plt Count MPV D-Dimer 1304 H Sodium Potassium Chloride Carbon Dioxide Anion Gap BUN Creatinine Creat Clearance w eGFR Random Glucose Calcium Phosphorus Magnesium Iron 37 TIBC 395 Iron Saturation 9 L Transferrin 321 Urine Color Yellow Urine Appearance Clear Urine pH 5.0 Ur Specific [place] 1.021 Urine Protein 1+ H Urine Glucose (UA) Negative Urine Ketones Negative Urine Blood Negative Urine Nitrite Negative Urine Bilirubin Negative Urine Urobilinogen Negative Ur Leukocyte Esterase Negative Urine WBC (Auto) 2 Urine RBC (Auto) 1 Ur Epithelial Cells Few Urine Mucus Rare Opiates Screen Methadone Screen Barbiturate Screen Phencyclidine Screen Ur Amphetamines Screen MDMA (Ecstasy) Screen Benzodiazepines Screen Cocaine Screen U Marijuana (THC) Screen 05/18/18 05/19/18 05/19/18 15:37 07:15 07:15 WBC 5.4 RBC 3.72 Hgb 9.4 L Hct 29.0 L MCV 78.1 L MCH 25.2 L MCHC 32.3 RDW 15.2 Plt Count 348 MPV 7.0 L D-Dimer Sodium 140 Potassium 4.1 Chloride 108 H Carbon Dioxide 24 Anion Gap 9 BUN 27 H Creatinine 1.4 H Creat Clearance w eGFR 38.62 Random Glucose 93 Calcium 8.4 L Phosphorus 3.9 Magnesium 2.2 Iron TIBC Iron Saturation Transferrin Urine Color Urine Appearance Urine pH Ur Specific [place] Urine Protein Urine Glucose (UA) Urine Ketones Urine Blood Urine Nitrite Urine Bilirubin Urine Urobilinogen Ur Leukocyte Esterase Urine WBC (Auto) Urine RBC (Auto) Ur Epithelial Cells Urine Mucus Opiates Screen Positive A* Methadone Screen Negative Barbiturate Screen Negative Phencyclidine Screen Negative Ur Amphetamines Screen Negative MDMA (Ecstasy) Screen Positive A* Benzodiazepines Screen Positive A* Cocaine Screen Negative U Marijuana (THC) Screen Negative 2D echo results reviewed ASSESSMENT AND PLAN: 57 yof with PMhx of morbid obesity, Left knee pain, opioid dependence, HTN, admitted with dyspnea, found with subsegmental PE and severe dilated cardiomyopathy. -Dyspnea -Possible acute RUL subsegmental PE -Newly diagnosed severe dilated cardiomyopathy -TEDDY -Opioid dependence -HTN Plan: 2d Echo noted, more likely to explain her dyspnea than suspect small subsegmental PE. Transfer to telemetry to assess for arrhythmia. Denies ETOH use, intially denied drug use, when discussed drug screen, reported took ecstacy with a friend recently but denies prior or regular use. Discussed with Dr. Haney, on lisinopril. Renal fn noted, monitor for now. Will need to hold ACEi if cr continues to rise. Continue eliqus. Pulmonary input noted. BP control with home coreg. continue home percocet DVTPPx as above Dispo pending clinical improvement. Anticipate cardiac w/u given new diagnosed concerning cardiomypathy and ongoing symptoms of dyspnea.
--- NOTE | 2018-05-19 12:07 | PN ---
Physical Exam: SUBJECTIVE: No acute events overnight. No new complaints today. OBJECTIVE: Vital Signs Period Temp Pulse Resp BP Sys/Vilchis Pulse Ox Last 24 Hr 97.8 F-99.7 F 78-109 20-20 128-143/70-89 97-97 GENERAL: NAD, alert and orientedx3, morbidly obese, sitting at bedside HEENT: Normocephalic, atraumatic, LULA, no scleral icterus, MMM LUNGS: CTA b/l, no crackles or wheezes HEART: Tachycardic and regular rhythm, normal S1 and S2 without murmur ABDOMEN: Soft, NT/ND, normoactive bowel sounds EXTREMITIES: 2+ pulses, warm, well-perfused. No peripheral edema. SKIN: no rashes or lesions noted Laboratory Results - last 24 hr 05/18/18 05/18/18 05/18/18 06:23 14:30 15:37 WBC RBC Hgb Hct MCV MCH MCHC RDW Plt Count MPV D-Dimer 1304 H Sodium Potassium Chloride Carbon Dioxide Anion Gap BUN Creatinine Creat Clearance w eGFR Random Glucose Calcium Phosphorus Magnesium Iron 37 TIBC 395 Iron Saturation 9 L Transferrin 321 Urine Color Yellow Urine Appearance Clear Urine pH 5.0 Ur Specific [place] 1.021 Urine Protein 1+ H Urine Glucose (UA) Negative Urine Ketones Negative Urine Blood Negative Urine Nitrite Negative Urine Bilirubin Negative Urine Urobilinogen Negative Ur Leukocyte Esterase Negative Urine WBC (Auto) 2 Urine RBC (Auto) 1 Ur Epithelial Cells Few Urine Mucus Rare Opiates Screen Methadone Screen Barbiturate Screen Phencyclidine Screen Ur Amphetamines Screen MDMA (Ecstasy) Screen Benzodiazepines Screen Cocaine Screen U Marijuana (THC) Screen 05/18/18 05/19/18 05/19/18 15:37 07:15 07:15 WBC 5.4 RBC 3.72 Hgb 9.4 L Hct 29.0 L MCV 78.1 L MCH 25.2 L MCHC 32.3 RDW 15.2 Plt Count 348 MPV 7.0 L D-Dimer Sodium 140 Potassium 4.1 Chloride 108 H Carbon Dioxide 24 Anion Gap 9 BUN 27 H Creatinine 1.4 H Creat Clearance w eGFR 38.62 Random Glucose 93 Calcium 8.4 L Phosphorus 3.9 Magnesium 2.2 Iron TIBC Iron Saturation Transferrin Urine Color Urine Appearance Urine pH Ur Specific [place] Urine Protein Urine Glucose (UA) Urine Ketones Urine Blood Urine Nitrite Urine Bilirubin Urine Urobilinogen Ur Leukocyte Esterase Urine WBC (Auto) Urine RBC (Auto) Ur Epithelial Cells Urine Mucus Opiates Screen Positive A* Methadone Screen Negative Barbiturate Screen Negative Phencyclidine Screen Negative Ur Amphetamines Screen Negative MDMA (Ecstasy) Screen Positive A* Benzodiazepines Screen Positive A* Cocaine Screen Negative U Marijuana (THC) Screen Negative Active Medications Generic Name Dose Route Start Last Admin Trade Name Freq PRN Reason Stop Dose Admin Acetaminophen 650 mg 05/18/18 09:54 05/19/18 05:48 Tylenol - PO 650 mg TID PRN Administration PAIN SCALE 6-10 Apixaban 5 mg 05/17/18 22:00 05/19/18 09:25 Eliquis - PO 5 mg BID EMILI Administration Aspirin 81 mg 05/18/18 10:00 05/19/18 09:25 Ecotrin - PO 81 mg DAILY EMILI Administration Bupropion HCl 75 mg 05/18/18 08:00 05/19/18 08:07 Wellbutrin - PO 75 mg BID@0800,2000 EMILI Administration Buspirone HCl 15 mg 05/18/18 10:00 05/19/18 09:25 Buspar - PO 15 mg BID EMILI Administration Carvedilol 25 mg 05/18/18 10:00 05/19/18 09:25 Coreg - PO 25 mg BID EMILI Administration Cyclobenzaprine HCl 10 mg 05/18/18 10:00 05/19/18 09:25 Flexeril - PO 10 mg DAILY EMILI Administration Lisinopril 10 mg 05/18/18 15:15 05/19/18 09:25 Prinivil PO 10 mg DAILY EMILI Administration Oxycodone HCl 10 mg 05/18/18 09:53 05/19/18 05:48 Roxicodone - PO 10 mg TID PRN Administration PAIN SCALE 6-10 Quetiapine Fumarate 200 mg 05/18/18 22:00 05/18/18 21:18 Seroquel - PO 200 mg HS EMILI Administration Venlafaxine HCl 75 mg 05/18/18 06:00 05/19/18 05:48 Effexor - PO 75 mg TID EMILI Administration Zolpidem Tartrate 10 mg 05/18/18 00:22 05/18/18 22:09 Ambien - PO 10 mg HS PRN Administration INSOMNIA ASSESSMENT/PLAN: 57F PMH of HTN, GERD, chronic opioid use, depression admitted to the hospital for subsegmental AMANDA PE and found to have dilated cardiomyopathy on echo Pulmonary embolism Dilated cardiomyopathy HTN Chronic pain TEDDY Neuro: at baseline Pulm --Continue Eliquis 5mg PO BID Cardiac: Given Echocardiogram with severely reduced EF and cardiomyopathy --Continue Lisinopril 10mg qDaily --Continue Coreg 25mg BID PO --Cardiology already on board --Continue cardiac monitoring Renal: Slight elevation in Cr 1.4 (from 1.2) Pt recently started on lisinopril No problems with voiding at this point Will monitor for now closely and if continually increasing will have to stop ACEi Pain Mgmt: Continue Percocet 10/325 TID (pt's home dose) Continue Flexeril 10 qDaily Psych: Continue Seroquel 200 HS, Buproprion, and Effexor home doses FEN: Fluids: None indicated Electrolyte abnormalities: None today Nutrition: Sodium-controlled PPX: DVT - Already on Eliquis 5mg PO BID GI - Not indicated currently Dispo: Telemetry monitoring for arrhythmia's given severely reduced EF 2/2 to dilated cardiomyopathy Case discussed with Dr. Gena Magana, DO - IM PGY-2 Visit type - Emergency Visit Emergency Visit: Yes ED Registration Date: 05/17/18 Care time: The patient presented to the Emergency Department on the above date and was hospitalized for further evaluation of their emergent condition. - New Patient This patient is new to me today: No - Critical Care Critical Care patient: No
[2018-05-19] MEDS: QUEtiapine FUMARATE 200 MG TABLET PO SCH (21:14)
[2018-05-19] MEDS: ZOLPIDEM TARTRATE 5 MG TABLET PO PRN (22:58)
[2018-05-20] MEDS: VENLAFAXINE HCL 75 MG TABLET PO SCH ×3 (06:09→21:47)
[2018-05-20] MEDS: ACETAMINOPHEN 325 MG TABLET (FP) PO PRN ×3 (06:09→20:39)
[2018-05-20] MEDS: oxyCODONE HCL 5 MG TABLET PO PRN ×3 (06:09→20:39)
[2018-05-20 08:19] LABS: ANION GAP 8 MMOL/L (8-16); BLOOD UREA NITROGEN 31 mg/dL (7-18); CALCIUM 8.2 mg/dL (8.5-10.1); CHLORIDE 108 mmol/L (98-107); CO2 25 mmol/L (21-32); CREATININE 1.6 mg/dL (0.55-1.3); GLUCOSE,RANDOM 86 mg/dL (74-106); POTASSIUM 4.2 mmol/L (3.5-5.1); SODIUM 141 mmol/L (136-145)
[2018-05-20] MEDS: APIXABAN 5 MG TABLET PO SCH ×2 (09:07→21:47)
[2018-05-20] MEDS: busPIRone HCL 5 MG TABLET PO SCH ×2 (09:07→21:46)
[2018-05-20] MEDS: CARVEDILOL 25 MG TABLET (FP) PO SCH ×2 (09:08→21:46)
[2018-05-20] MEDS: buPROPion HCL 75 MG TABLET PO SCH ×2 (09:08→21:47)
[2018-05-20] MEDS: ASPIRIN COATED 81 MG TABLET.EC PO SCH (09:08)
[2018-05-20] MEDS: CYCLOBENZAPRINE HCL 10 MG TABLET (FP) PO SCH (09:09)
--- NOTE | 2018-05-20 09:50 | CONSULT ---
Consult - text type - Consultation Consultation Note: Renal Consult for TEDDY This is a 57 year old AA woman with hx of CHF, Braydcardia, GERD, TEDDY/CKD, former smoker who presented with complaints of TIRADO and found to have PE + severe systolic cardiomyopathy with TEDDY during hospital admission. Pt with hx of TEDDY episodes that improved with IVF in the past. She reports she had seen a kidney doctor in the past but cannot recall their name. Was told that her kidneys were ok. Has sporadic NSAID use at home. s/p contrast exposure at begining of hospital admit. Was also started on ACEi as well. No fever, chills, cp, abd pain, N/V/D. Tolerating diet. PMhx: as above Allergies: NKDA Family Hx: Mother CAD, no dialysis in family ROS: as per HPI, all other pertinent ros negative Home Medications Medication Instructions Recorded Aspirin [Ecotrin] 81 mg PO DAILY 03/24/16 Bupropion HCl 75 mg PO BID 08/03/17 Carvedilol [Coreg] 25 mg PO BID 08/03/17 Cyclobenzaprine HCl 10 mg PO DAILY 08/04/17 Oxycodone HCl/Acetaminophen 1 each PO Q8H PRN MDD 3/day 08/04/17 [Oxycodone-Acetaminophen 10-325] Quetiapine Fumarate [Seroquel -] 200 mg PO HS 08/04/17 Venlafaxine HCl ER [Effexor Xr -] 75 mg PO TID 01/12/18 Zolpidem Tartrate [Ambien] 10 mg PO HS 01/12/18 Oxycodone HCl 5 mg PO BID PRN #10 capsule MDD 2 05/17/18 Buspirone HCl 15 mg PO BID 05/18/18 Vital Signs Temperature 98.2 F 05/20/18 02:00 Pulse Rate 82 05/20/18 06:00 Respiratory Rate 20 05/20/18 06:00 Blood Pressure 129/89 05/20/18 06:00 O2 Sat by Pulse Oximetry (%) 98 05/19/18 21:00 Intake & Output 05/17/18 05/18/18 05/19/18 05/20/18 23:59 23:59 23:59 23:59 Intake Total 1220 640 Balance 1220 640 Weight 108.862 kg 114.759 kg NAD awake and alert neck supple, no JVD RRR, No M/R CTA, no rales or wheeze soft, obese, NT/ND no LE edema, clubbing or cyanosis CBC, BMP 05/19/18 07:15 05/20/18 05:17 Current Medications Acetaminophen (Tylenol -) 650 mg PO TID PRN PRN Reason: PAIN SCALE 6-10 Last Admin: 05/20/18 06:09 Dose: 650 mg Apixaban (Eliquis -) 5 mg PO BID [facility] Last Admin: 05/20/18 09:07 Dose: 5 mg Aspirin (Ecotrin -) 81 mg PO DAILY [facility] Last Admin: 05/20/18 09:08 Dose: 81 mg Bupropion HCl (Wellbutrin -) 75 mg PO BID@0800,1999 [facility] Last Admin: 05/20/18 09:08 Dose: 75 mg Buspirone HCl (Buspar -) 15 mg PO BID [facility] Last Admin: 05/20/18 09:07 Dose: 15 mg Carvedilol (Coreg -) 25 mg PO BID [facility] Last Admin: 05/20/18 09:08 Dose: 25 mg Cyclobenzaprine HCl (Flexeril -) 10 mg PO DAILY [facility] Last Admin: 05/20/18 09:09 Dose: 10 mg Lisinopril (Prinivil) 10 mg PO DAILY [facility] Last Admin: 05/19/18 09:25 Dose: 10 mg Oxycodone HCl (Roxicodone -) 10 mg PO TID PRN PRN Reason: PAIN SCALE 6-10 Last Admin: 05/20/18 06:09 Dose: 10 mg Quetiapine Fumarate (Seroquel -) 200 mg PO HS [facility] Last Admin: 05/19/18 21:14 Dose: 200 mg Venlafaxine HCl (Effexor -) 75 mg PO TID [facility] Last Admin: 05/20/18 06:09 Dose: 75 mg Zolpidem Tartrate (Ambien -) 10 mg PO HS PRN PRN Reason: INSOMNIA Last Admin: 05/19/18 22:58 Dose: 10 mg 57 year old AA woman with hx of CHF, Braydcardia, GERD, TEDDY/CKD, former smoker who presented with complaints of TIRADO and found to have PE + severe systolic cardiomyopathy with TEDDY during hospital admission. #TEDDY likely due to contrast nephropathy (given timing of injury) +/- hemodynamic effect form ACEi #TIRADO #Pulmonary Embolism #Cardiomyopathy #Anemia Would hold ACEi at this time no IVF as pt with very low EF and if TEDDY due to contrast nephropathy unlikely to help at this time check Urine for FeNa, FeUrea, UPCR Renal US Check DANIELLE in AM Cardiology follow up with ischemic work up Check iron profile, no acute need for transfusion no indication for [employer] at the present time avoid nsaids, IV contrast dose all meds for CrCl less then 30 Thank you Will follow Dino Fuentes DO
--- NOTE | 2018-05-20 11:31 | PN ---
Progress Note, Physician History of Present Illness: No CV complaints Transferred to tele by PMD over concerns of arrhythmia given newly diagnosed LV dysfunction Does endorse exertional dyspnea - Current Medication List Current Medications: Active Medications Acetaminophen (Tylenol -) 650 mg PO TID PRN PRN Reason: PAIN SCALE 6-10 Last Admin: 05/20/18 06:09 Dose: 650 mg Apixaban (Eliquis -) [address] [facility] Last Admin: 05/20/18 09:07 Dose: 5 mg Aspirin (Ecotrin -) [address] [facility] Last Admin: 05/20/18 09:08 Dose: 81 mg Bupropion HCl (Wellbutrin -) 75 mg PO BID@0800,1999 [facility] Last Admin: 05/20/18 09:08 Dose: 75 mg Buspirone HCl (Buspar -) [address] [facility] Last Admin: 05/20/18 09:07 Dose: 15 mg Carvedilol (Coreg -) [address] [facility] Last Admin: 05/20/18 09:08 Dose: 25 mg Cyclobenzaprine HCl (Flexeril -) [address] [facility] Last Admin: 05/20/18 09:09 Dose: 10 mg Oxycodone HCl (Roxicodone -) 10 mg PO TID PRN PRN Reason: PAIN SCALE 6-10 Last Admin: 05/20/18 06:09 Dose: 10 mg Quetiapine Fumarate (Seroquel -) [address] [facility] Last Admin: 05/19/18 21:14 Dose: 200 mg Venlafaxine HCl (Effexor -) [address] [facility] Last Admin: 05/20/18 06:09 Dose: 75 mg Zolpidem Tartrate (Ambien -) 10 mg PO HS PRN PRN Reason: INSOMNIA Last Admin: 05/19/18 22:58 Dose: 10 mg - Objective Vital Signs: Vital Signs Temperature 99.1 F 05/20/18 09:58 Pulse Rate 95 H 05/20/18 09:58 Respiratory Rate 20 05/20/18 09:58 Blood Pressure 113/71 05/20/18 09:58 O2 Sat by Pulse Oximetry (%) 98 05/19/18 21:00 Constitutional: Yes: No Distress Eyes: Yes: WNL HENT: Yes: WNL Neck: Yes: WNL Cardiovascular: Yes: Regular Rate and Rhythm Respiratory: Yes: CTA Bilaterally Gastrointestinal: Yes: Normal Bowel Sounds Musculoskeletal: Yes: WNL Extremities: Yes: WNL Edema: LLE: Trace, RLE: Trace Labs: CBC, BMP 05/19/18 07:15 05/20/18 05:17 INR, PTT INR 1.00 (0.83-1.09) 05/17/18 12:50 Assessment/Plan a/p: 57 f hx htn, gerd here with sob. Newly diagnosed severe LV dysfunction sob, PE: -no signs chf or acs -echo with severe LV dysfunction (LVEF 15%) with restrictive pattern. -Stage C/NYHA Class III CHF. BNP 763 -Continue Coreg, will add ACEi (Lisinopril 5mg daily) and lasix 20mg daily htn: -cont coreg gerd: -stable sxs
[2018-05-20] MEDS ORDERED: LISINOPRIL 5 MG TABLET (FP) PO ONE (11:36)
--- NOTE | 2018-05-20 12:56 | PN ---
Progress Note (short form) - Note Progress Note: Breathing feels ok at rest on RA. Reports generalized fatigue and body aches. Pain issues. Intake & Output 05/17/18 05/18/18 05/19/18 05/20/18 23:59 23:59 23:59 23:59 Intake Total 1220 640 Balance 1220 640 Weight 240 lb 253 lb Last Vital Signs Temp Pulse Resp BP Pulse Ox 99.1 F 95 H 20 113/71 98 05/20/18 09:58 05/20/18 09:58 05/20/18 09:58 05/20/18 09:58 05/19/18 21:00 Active Medications Acetaminophen (Tylenol -) 650 mg PO TID PRN PRN Reason: PAIN SCALE 6-10 Last Admin: 05/20/18 06:09 Dose: 650 mg Apixaban (Eliquis -) 5 mg PO BID [facility] Last Admin: 05/20/18 09:07 Dose: 5 mg Aspirin (Ecotrin -) 81 mg PO DAILY [facility] Last Admin: 05/20/18 09:08 Dose: 81 mg Bupropion HCl (Wellbutrin -) 75 mg PO BID@0800,1999 [facility] Last Admin: 05/20/18 09:08 Dose: 75 mg Buspirone HCl (Buspar -) 15 mg PO BID [facility] Last Admin: 05/20/18 09:07 Dose: 15 mg Carvedilol (Coreg -) 25 mg PO BID [facility] Last Admin: 05/20/18 09:08 Dose: 25 mg Cyclobenzaprine HCl (Flexeril -) 10 mg PO DAILY [facility] Last Admin: 05/20/18 09:09 Dose: 10 mg Furosemide (Lasix -) 20 mg PO DAILY [facility] Oxycodone HCl (Roxicodone -) 10 mg PO TID PRN PRN Reason: PAIN SCALE 6-10 Last Admin: 05/20/18 06:09 Dose: 10 mg Quetiapine Fumarate (Seroquel -) 200 mg PO [facility] Last Admin: 05/19/18 21:14 Dose: 200 mg Venlafaxine HCl (Effexor -) 75 mg PO TID [facility] Last Admin: 05/20/18 06:09 Dose: 75 mg Zolpidem Tartrate (Ambien -) 10 mg PO HS PRN PRN Reason: INSOMNIA Last Admin: 05/19/18 22:58 Dose: 10 mg Constitutional: Yes: Calm Eyes: Yes: EOM Intact HENT: Yes: Normocephalic Neck: Yes: Trachea Midline Cardiovascular: Yes: Regular Rate and Rhythm, S1, S2 Respiratory: Yes: CTA Bilaterally Gastrointestinal: Yes: Normal Bowel Sounds, Abdomen, Obese Renal/: Yes: WNL Breast(s): Yes: WNL Musculoskeletal: Yes: WNL Extremities: Yes: Other (severe left knee pain to rom) Integumentary: Yes: WNL Neurological: Yes: Alert Labs: Laboratory Results - last 24 hr 05/20/18 05/20/18 05/20/18 05:17 09:15 09:15 Sodium 141 Potassium 4.2 Chloride 108 H Carbon Dioxide 25 Anion Gap 8 BUN 31 H Creatinine 1.6 H Creat Clearance w eGFR 33.11 Random Glucose 86 Calcium 8.2 L U Random Total Protein 86 H Ur Random Sodium 53 Ur Random Potassium 56.0 Ur Random Chloride 39 L Ur Random Urea Nitrogn 1221 H Urine Creatinine 340.0 H Cancelled 05/20/18 05/20/18 09:15 09:15 Sodium Potassium Chloride Carbon Dioxide Anion Gap BUN Creatinine Creat Clearance w eGFR Random Glucose Calcium U Random Total Protein Cancelled Ur Random Sodium Ur Random Potassium Ur Random Chloride Ur Random Urea Nitrogn Cancelled Urine Creatinine Problem List - Problems (1) Pulmonary embolism Code(s): I26.99 - OTHER PULMONARY EMBOLISM WITHOUT ACUTE COR PULMONALE (2) Left anterior knee pain Code(s): M25.562 - PAIN IN LEFT KNEE (3) Arthritis of left knee Code(s): M17.12 - UNILATERAL PRIMARY OSTEOARTHRITIS, LEFT KNEE (4) Chronic pain Code(s): G89.29 - OTHER CHRONIC PAIN Qualifiers: Chronic pain type: chronic pain syndrome Qualified Code(s): G89.4 - Chronic pain syndrome Assessment/Plan NOAC FOR SUBSEGMENTAL PE PAIN CONTROL PER PRIMARY CARDIAC WORKUP ONGOING WILL NEED FORMAL OSAS WORKUP AFTER D/C NO SMOKING NO PULMONARY CONTRAINDICATION FOR D/C PLANNING DR WREN
--- NOTE | 2018-05-20 15:12 | PN ---
Physical Exam: SUBJECTIVE: Patient seen and examined, no new complaints. OBJECTIVE: Vital Signs Period Temp Pulse Resp BP Sys/Vilchis Pulse Ox Last 24 Hr 98.2 F-99.1 F 82-95 20-20 105-129/59-89 98 GENERAL: sitting in bed in no acute distress CVS;S1S2 regular Chest: CTAB, no rales or wheezing Abdomen:soft, obese, NT Extremities: no pedal edema Laboratory Results - last 24 hr 05/20/18 05/20/18 05/20/18 05:17 09:15 09:15 Sodium 141 Potassium 4.2 Chloride 108 H Carbon Dioxide 25 Anion Gap 8 BUN 31 H Creatinine 1.6 H Creat Clearance w eGFR 33.11 Random Glucose 86 Calcium 8.2 L U Random Total Protein 86 H Ur Random Sodium 53 Ur Random Potassium 56.0 Ur Random Chloride 39 L Ur Random Urea Nitrogn 1221 H Urine Creatinine 340.0 H Cancelled 05/20/18 05/20/18 09:15 09:15 Sodium Potassium Chloride Carbon Dioxide Anion Gap BUN Creatinine Creat Clearance w eGFR Random Glucose Calcium U Random Total Protein Cancelled Ur Random Sodium Ur Random Potassium Ur Random Chloride Ur Random Urea Nitrogn Cancelled Urine Creatinine Active Medications Generic Name Dose Route Start Last Admin Trade Name Freq PRN Reason Stop Dose Admin Acetaminophen 650 mg 05/19/18 12:54 05/20/18 13:32 Tylenol - PO 650 mg TID PRN Administration PAIN SCALE 6-10 Apixaban 5 mg 05/19/18 22:00 05/20/18 09:07 Eliquis - PO 5 mg BID [facility] Administration Aspirin 81 mg 05/20/18 10:00 05/20/18 09:08 Ecotrin - PO 81 mg DAILY [facility] Administration Bupropion HCl 75 mg 05/19/18 20:00 05/20/18 09:08 Wellbutrin - PO 75 mg BID@0800,1999 [facility] Administration Buspirone HCl 15 mg 05/19/18 22:00 05/20/18 09:07 Buspar - PO 15 mg BID [facility] Administration Carvedilol 25 mg 05/19/18 22:00 05/20/18 09:08 Coreg - PO 25 mg BID [facility] Administration Cyclobenzaprine HCl 10 mg 05/20/18 10:00 05/20/18 09:09 Flexeril - PO 10 mg DAILY [facility] Administration Furosemide 20 mg 05/21/18 10:00 Lasix - PO DAILY [facility] Oxycodone HCl 10 mg 05/19/18 12:54 05/20/18 13:32 Roxicodone - PO 10 mg TID PRN Administration PAIN SCALE 6-10 Quetiapine Fumarate 200 mg 05/19/18 22:00 05/19/18 21:14 Seroquel - PO 200 mg HS [facility] Administration Venlafaxine HCl 75 mg 05/19/18 14:00 05/20/18 13:26 Effexor - PO 75 mg TID [facility] Administration Zolpidem Tartrate 10 mg 05/19/18 12:54 05/19/18 22:58 Ambien - PO 10 mg HS PRN Administration INSOMNIA ASSESSMENT/PLAN: 57 yof with PMhx of morbid obesity, Left knee pain, opioid dependence, HTN, admitted with dyspnea, found with subsegmental PE and severe dilated cardiomyopathy. -Dyspnea -Possible acute RUL subsegmental PE -Newly diagnosed severe dilated cardiomyopathy -TEDDY, from poor EF associated with ACEi, vs contrast inducted nephropathy -Opioid dependence -HTN Plan: 2d Echo noted, more likely to explain her dyspnea than suspect small subsegmental PE. telemetry reviewed. Denies ETOH use, intially denied drug use, when discussed drug screen, reported took ecstacy with a friend recently but denies prior or regular use. Cr rising, hold ACEi, renal consult dr. Fuentes. Hold ACEI (2.5 mg po given by cardiology noted) Renal/bladder US. Continue eliqus. Pulmonary input noted. BP control with home coreg. Continue home percocet DVTPPx as above Dispo pending clinical improvement and cardiology/renal input. Anticipate cardiac w/u given new diagnosed concerning cardiomypathy and ongoing symptoms of dyspnea. Plan discussed with patient, nursing. Dr. Slaughter and Dr. Fuentes in detail, all questions answered. Visit type - Emergency Visit Emergency Visit: Yes ED Registration Date: 05/17/18 Care time: The patient presented to the Emergency Department on the above date and was hospitalized for further evaluation of their emergent condition. - New Patient This patient is new to me today: No - Critical Care Critical Care patient: No - Discharge Referral Referred to [facility] No
[2018-05-20] MEDS: QUEtiapine FUMARATE 200 MG TABLET PO SCH (21:47)
[2018-05-20] MEDS: ZOLPIDEM TARTRATE 5 MG TABLET PO PRN (21:47)
[2018-05-21] MEDS: oxyCODONE HCL 5 MG TABLET PO PRN ×3 (05:58→21:22)
[2018-05-21] MEDS: ACETAMINOPHEN 325 MG TABLET (FP) PO PRN ×3 (05:58→21:23)
[2018-05-21] MEDS: VENLAFAXINE HCL 75 MG TABLET PO SCH ×3 (05:58→22:08)
[2018-05-21 07:04] LABS: BASO % 0.9 % (0-2.0); EOS % 4.8 % (0-4.5); HEMOGLOBIN 8.8 GM/dL (10.7-15.3); LYMPH % 44.1 % (8-40); MCH 24.9 pg (25.7-33.7); MCHC 31.2 g/dl (32.0-36.0); MEAN CELL VOLUME 79.8 fl (80-96); MEAN PLT VOLUME 7.3 fl (7.5-11.1); MONO % 10.6 % (3.8-10.2); NEUT % 39.6 % (42.8-82.8); PLATELET COUNT 359 K/MM3 (134-434); RBC 3.51 M/mm3 (3.60-5.2); RDW 15.8 % (11.6-15.6); WHITE BLOOD COUNT 5.6 K/mm3 (4.0-10.0)
[2018-05-21 07:57] LABS: ALK PHOS 58 U/L (45-117); ANION GAP 8 MMOL/L (8-16); BILIRUBIN,TOTAL 0.2 mg/dL (0.2-1); BLOOD UREA NITROGEN 28 mg/dL (7-18); CALCIUM 8.6 mg/dL (8.5-10.1); CHLORIDE 111 mmol/L (98-107); CO2 24 mmol/L (21-32); CREATININE 1.5 mg/dL (0.55-1.3); GLUCOSE,RANDOM 76 mg/dL (74-106); MAGNESIUM 2.2 mg/dL (1.8-2.4); PHOSPHOROUS 3.8 mg/dL (2.5-4.9); POTASSIUM 4.3 mmol/L (3.5-5.1); SGOT/AST 8 U/L (15-37); SGPT/ALT 23 U/L (13-61); SODIUM 142 mmol/L (136-145); TOT PROT 6.8 g/dl (6.4-8.2)
--- NOTE | 2018-05-21 08:29 | PN ---
Teaching Attending Note Name of Resident: Harshad Mccarty ATTENDING PHYSICIAN STATEMENT I saw and evaluated the patient. I reviewed the resident's note and discussed the case with the resident. I agree with the resident's findings and plan as documented with exceptions below. SUBJECTIVE: Patient seen and examined. no new dyspnea or complaints. OBJECTIVE: Vital Signs Period Temp Pulse Resp BP Sys/Vilchis Pulse Ox Last 24 Hr 98.3 F-99.1 F 82-95 20-20 113-129/70-75 98-98 Intake & Output 05/18/18 05/19/18 05/20/18 05/21/18 23:59 23:59 23:59 23:59 Intake Total 1220 640 380 10 Balance 1220 640 380 10 Weight 253 lb General; sitting in bed in no acute distress CVS;S1s2 regular Chest: limited by habitus but no rales or wheezing Abdomen:soft, obese, NT Extremities: unchanged Left knee findings, no new edema Active Medications Acetaminophen (Tylenol -) 650 mg PO TID PRN PRN Reason: PAIN SCALE 6-10 Last Admin: 05/21/18 05:58 Dose: 650 mg Apixaban (Eliquis -) 5 mg PO BID [facility] Last Admin: 05/20/18 21:47 Dose: 5 mg Aspirin (Ecotrin -) 81 mg PO DAILY [facility] Last Admin: 05/20/18 09:08 Dose: 81 mg Bupropion HCl (Wellbutrin -) 75 mg PO BID@0800,1999 [facility] Last Admin: 05/20/18 21:47 Dose: 75 mg Buspirone HCl (Buspar -) 15 mg PO BID [facility] Last Admin: 05/20/18 21:46 Dose: 15 mg Carvedilol (Coreg -) 25 mg PO BID [facility] Last Admin: 05/20/18 21:46 Dose: 25 mg Cyclobenzaprine HCl (Flexeril -) 10 mg PO DAILY [facility] Last Admin: 05/20/18 09:09 Dose: 10 mg Furosemide (Lasix -) 20 mg PO DAILY [facility] Oxycodone HCl (Roxicodone -) 10 mg PO TID PRN PRN Reason: PAIN SCALE 6-10 Last Admin: 05/21/18 05:58 Dose: 10 mg Quetiapine Fumarate (Seroquel -) 200 mg PO [facility] Last Admin: 05/20/18 21:47 Dose: 200 mg Venlafaxine HCl (Effexor -) 75 mg PO TID [facility] Last Admin: 05/21/18 05:58 Dose: 75 mg Zolpidem Tartrate (Ambien -) 10 mg PO HS PRN PRN Reason: INSOMNIA Last Admin: 05/20/18 21:47 Dose: 10 mg Laboratory Results - last 24 hr 05/20/18 05/20/18 05/20/18 09:15 09:15 09:15 WBC RBC Hgb Hct MCV MCH MCHC RDW Plt Count MPV Absolute Neuts (auto) Neutrophils % Lymphocytes % Monocytes % Eosinophils % Basophils % Nucleated RBC % Sodium Potassium Chloride Carbon Dioxide Anion Gap BUN Creatinine Creat Clearance w eGFR Random Glucose Calcium Phosphorus Magnesium Ferritin Total Bilirubin AST ALT Alkaline Phosphatase Total Protein Albumin U Random Total Protein 86 H Cancelled Ur Random Sodium 53 Ur Random Potassium 56.0 Ur Random Chloride 39 L Ur Random Urea Nitrogn 1221 H Urine Creatinine 340.0 H Cancelled 05/20/18 05/21/18 05/21/18 09:15 05:30 05:30 WBC 5.6 RBC 3.51 L Hgb 8.8 L Hct 28.0 L MCV 79.8 L MCH 24.9 L MCHC 31.2 L RDW 15.8 H Plt Count 359 MPV 7.3 L Absolute Neuts (auto) 2.2 Neutrophils % 39.6 L D Lymphocytes % 44.1 H D Monocytes % 10.6 H Eosinophils % 4.8 H D Basophils % 0.9 Nucleated RBC % 0 Sodium Potassium Chloride Carbon Dioxide Anion Gap BUN Creatinine Creat Clearance w eGFR Random Glucose Calcium Phosphorus Magnesium Ferritin Cancelled Total Bilirubin AST ALT Alkaline Phosphatase Total Protein Albumin U Random Total Protein Ur Random Sodium Ur Random Potassium Ur Random Chloride Ur Random Urea Nitrogn Cancelled Urine Creatinine 05/21/18 06:00 WBC RBC Hgb Hct MCV MCH MCHC RDW Plt Count MPV Absolute Neuts (auto) Neutrophils % Lymphocytes % Monocytes % Eosinophils % Basophils % Nucleated RBC % Sodium 142 Potassium 4.3 Chloride 111 H Carbon Dioxide 24 Anion Gap 8 BUN 28 H Creatinine 1.5 H Creat Clearance w eGFR 35.67 Random Glucose 76 Calcium 8.6 Phosphorus 3.8 Magnesium 2.2 Ferritin 24.9 Total Bilirubin 0.2 AST 8 L ALT 23 Alkaline Phosphatase 58 Total Protein 6.8 Albumin 3.0 L U Random Total Protein Ur Random Sodium Ur Random Potassium Ur Random Chloride Ur Random Urea Nitrogn Urine Creatinine ASSESSMENT AND PLAN: 57 yof with PMhx of morbid obesity, Left knee pain, opioid dependence, HTN, admitted with dyspnea, found with subsegmental PE and severe dilated cardiomyopathy. -Dyspnea -Possible acute RUL subsegmental PE -Newly diagnosed severe dilated cardiomyopathy -TEDDY, from poor EF associated with ACEi, vs contrast inducted nephropathy -Opioid dependence -HTN Plan: 2d Echo noted, more likely to explain her dyspnea than suspect small subsegmental PE. telemetry reviewed. Denies ETOH use, intially denied drug use, when discussed drug screen, reported took ecstasy with a friend recently but denies prior or regular use. Cardiology input noted, plan for cardiac cath once off eliquis for 3-4 days. D/ c eliquis. start heparin drip tonight at 9 pm, discuss with nursing. Hold Lasix/ACei for now. Renal function stable today, follow up renal/bladder US. Renal input appreciated. Pulmonary input noted. BP control with home coreg. Continue home percocet DVTPPx as above Dispo transfer for inpatient cardiac cath in 72 hours if renal function stable and no new concerns. Plan discussed with patient and Dr. Padilla.
--- NOTE | 2018-05-21 08:49 | PN ---
Physical Exam: SUBJECTIVE: Patient seen and examined this AM. She states that she is feeling better throughout the weekend. She endorses that her knee pain is still present and worse at night. Expresses concern about discharge planning without resolution of clot. Explained that Eliquis will prevent further clotting and the body will take time to resolve clot in her lungs. OBJECTIVE: Vital Signs Period Temp Pulse Resp BP Sys/Vilchis Pulse Ox Last 24 Hr 98.3 F-99.1 F 82-95 20-20 113-129/70-75 98-98 GENERAL: A&O, morbidly obese, no acute distress HEAD: Normocephalic, atraumatic. EYES: PERRL, no scleral icterus EARS, NOSE, THROAT: oropharynx clear without exudates. Moist mucous membranes. NECK: supple without lymphadenopathy LUNGS: CTA b/l, no crackles or wheezes HEART: Regular rate and rhythm, normal S1 and S2 without murmur ABDOMEN: Soft, nontender to palpation, normoactive bowel sounds MUSCULOSKELETAL: No bony deformities or tenderness. EXTREMITIES: 2+ pulses, warm, well-perfused. No peripheral edema. NEUROLOGICAL: Cranial nerves II-XII grossly intact. Normal speech. PSYCHIATRIC: Cooperative. Good eye contact. Appropriate mood and affect. SKIN: Warm, dry, no rashes or lesions noted Laboratory Results - last 24 hr 05/20/18 05/20/18 05/20/18 09:15 09:15 09:15 WBC RBC Hgb Hct MCV MCH MCHC RDW Plt Count MPV Absolute Neuts (auto) Neutrophils % Lymphocytes % Monocytes % Eosinophils % Basophils % Nucleated RBC % Sodium Potassium Chloride Carbon Dioxide Anion Gap BUN Creatinine Creat Clearance w eGFR Random Glucose Calcium Phosphorus Magnesium Ferritin Total Bilirubin AST ALT Alkaline Phosphatase Total Protein Albumin U Random Total Protein 86 H Cancelled Ur Random Sodium 53 Ur Random Potassium 56.0 Ur Random Chloride 39 L Ur Random Urea Nitrogn 1221 H Urine Creatinine 340.0 H Cancelled 05/20/18 05/21/18 05/21/18 09:15 05:30 05:30 WBC 5.6 RBC 3.51 L Hgb 8.8 L Hct 28.0 L MCV 79.8 L MCH 24.9 L MCHC 31.2 L RDW 15.8 H Plt Count 359 MPV 7.3 L Absolute Neuts (auto) 2.2 Neutrophils % 39.6 L D Lymphocytes % 44.1 H D Monocytes % 10.6 H Eosinophils % 4.8 H D Basophils % 0.9 Nucleated RBC % 0 Sodium Potassium Chloride Carbon Dioxide Anion Gap BUN Creatinine Creat Clearance w eGFR Random Glucose Calcium Phosphorus Magnesium Ferritin Cancelled Total Bilirubin AST ALT Alkaline Phosphatase Total Protein Albumin U Random Total Protein Ur Random Sodium Ur Random Potassium Ur Random Chloride Ur Random Urea Nitrogn Cancelled Urine Creatinine 05/21/18 06:00 WBC RBC Hgb Hct MCV MCH MCHC RDW Plt Count MPV Absolute Neuts (auto) Neutrophils % Lymphocytes % Monocytes % Eosinophils % Basophils % Nucleated RBC % Sodium 142 Potassium 4.3 Chloride 111 H Carbon Dioxide 24 Anion Gap 8 BUN 28 H Creatinine 1.5 H Creat Clearance w eGFR 35.67 Random Glucose 76 Calcium 8.6 Phosphorus 3.8 Magnesium 2.2 Ferritin 24.9 Total Bilirubin 0.2 AST 8 L ALT 23 Alkaline Phosphatase 58 Total Protein 6.8 Albumin 3.0 L U Random Total Protein Ur Random Sodium Ur Random Potassium Ur Random Chloride Ur Random Urea Nitrogn Urine Creatinine Active Medications Generic Name Dose Route Start Last Admin Trade Name Freq PRN Reason Stop Dose Admin Acetaminophen 650 mg 05/19/18 12:54 05/21/18 05:58 Tylenol - PO 650 mg TID PRN Administration PAIN SCALE 6-10 Apixaban 5 mg 05/19/18 22:00 05/20/18 21:47 Eliquis - PO 5 mg BID [facility] Administration Aspirin 81 mg 05/20/18 10:00 05/20/18 09:08 Ecotrin - PO 81 mg DAILY [facility] Administration Bupropion HCl 75 mg 05/19/18 20:00 05/20/18 21:47 Wellbutrin - PO 75 mg BID@08,1999 [facility] Administration Buspirone HCl 15 mg 05/19/18 22:00 05/20/18 21:46 Buspar - PO 15 mg BID [facility] Administration Carvedilol 25 mg 05/19/18 22:00 05/20/18 21:46 Coreg - PO 25 mg BID [facility] Administration Cyclobenzaprine HCl 10 mg 05/20/18 10:00 05/20/18 09:09 Flexeril - PO 10 mg DAILY [facility] Administration Furosemide 20 mg 05/21/18 10:00 Lasix - PO DAILY [facility] Oxycodone HCl 10 mg 05/19/18 12:54 05/21/18 05:58 Roxicodone - PO 10 mg TID PRN Administration PAIN SCALE 6-10 Quetiapine Fumarate 200 mg 05/19/18 22:00 05/20/18 21:47 Seroquel - PO 200 mg HS [facility] Administration Venlafaxine HCl 75 mg 05/19/18 14:00 05/21/18 05:58 Effexor - PO 75 mg TID [facility] Administration Zolpidem Tartrate 10 mg 05/19/18 12:54 05/20/18 21:47 Ambien - PO 10 mg HS PRN Administration INSOMNIA ASSESSMENT/PLAN: 57F PMH of HTN, chronic opioid use for Knee pain, depression admitted to the hospital for SOB and a CT Chest for subsegmental PE. Combined Systolic/Diastolic Left sided Heart Failure -Echo noted with Dilation and hypokinesis of Left ventricle, EF <15% -Cardiology Consult appreciated, case discussed -Coreg 25 mg PO BID -Lisinopril 10 mg PO Daily (hold as below) -Telemetry monitoring -Likely for transfer for cath as per cardiology on 05/23 -Hold lasix and lisinopril for renal fxn prior to cath PE -CTA noted with small subsegmental PE in AMANDA -Eliquis 5 mg PO BID, hold and start Heparin 12 hours after last dose -Pulmonology Consult appreciated HTN -Continue Coreg -Hold lisinopril for Cr improvement prior to cath TEDDY -Hold lisinopril and lasix for now -Avoid nephrotoxic drugs -Kidney/Renal/Bladder/Pelvis US pending Depression/Sleep Disorder -Stable on home meds -Effexor 75 mg PO TID -Ambien 10 mg PO HS PRN -Seroquel 200 mg PO HS -Wellbutrin 75 mg PO BID Chronic Knee Pain -Pt on Percocet 10 TID at home -States she often takes Motrin in addition to percocets -Pt states pain is still not controlled and she knows that she needs surgery for resolution of pain -Discussed with patient in detail that we will maintain her pain regimen as prescribed outpatient -Avoid Motrin as patient on Eliquis -Can trial lidocaine patch if pain worsens overnight DVT Prophylaxis -Eliquis 5 mg PO BID - hold for cath -Start heparin this PM 12 hrs after last Eliquis dose FEN -Fluids: None -Electrolytes: No electrolyte abnormalities, BMP in AM -Nutrition: Sodium Controlled Diet Disposition Telemetry, transfer for cath, likely 05/23 Visit type - Emergency Visit Emergency Visit: Yes ED Registration Date: 05/17/18 Care time: The patient presented to the Emergency Department on the above date and was hospitalized for further evaluation of their emergent condition. - New Patient This patient is new to me today: No - Critical Care Critical Care patient: No
[2018-05-21] MEDS: ASPIRIN COATED 81 MG TABLET.EC PO SCH (09:19)
[2018-05-21] MEDS: CYCLOBENZAPRINE HCL 10 MG TABLET (FP) PO SCH (09:20)
[2018-05-21] MEDS: busPIRone HCL 5 MG TABLET PO SCH ×2 (09:20→21:18)
[2018-05-21] MEDS: buPROPion HCL 75 MG TABLET PO SCH ×2 (09:20→21:18)
[2018-05-21] MEDS: CARVEDILOL 25 MG TABLET (FP) PO SCH ×2 (09:20→21:18)
[2018-05-21] MEDS: APIXABAN 5 MG TABLET PO SCH (09:20)
--- NOTE | 2018-05-21 09:20 | PN ---
Progress Note, Physician Chief Complaint: sob History of Present Illness: no sob in bed/chair, no orthopnea. no cp, palpitations, syncope no etoh, drugs - Current Medication List Current Medications: Active Medications Acetaminophen (Tylenol -) 650 mg PO TID PRN PRN Reason: PAIN SCALE 6-10 Last Admin: 05/21/18 05:58 Dose: 650 mg Apixaban (Eliquis -) 5 mg PO BID [facility] Last Admin: 05/20/18 21:47 Dose: 5 mg Aspirin (Ecotrin -) 81 mg PO DAILY [facility] Last Admin: 05/20/18 09:08 Dose: 81 mg Bupropion HCl (Wellbutrin -) 75 mg PO BID@0800,2000 [facility] Last Admin: 05/20/18 21:47 Dose: 75 mg Buspirone HCl (Buspar -) 15 mg PO BID [facility] Last Admin: 05/20/18 21:46 Dose: 15 mg Carvedilol (Coreg -) 25 mg PO BID [facility] Last Admin: 05/20/18 21:46 Dose: 25 mg Cyclobenzaprine HCl (Flexeril -) 10 mg PO DAILY [facility] Last Admin: 05/20/18 09:09 Dose: 10 mg Furosemide (Lasix -) 20 mg PO DAILY [facility] Oxycodone HCl (Roxicodone -) 10 mg PO TID PRN PRN Reason: PAIN SCALE 6-10 Last Admin: 05/21/18 05:58 Dose: 10 mg Quetiapine Fumarate (Seroquel -) 200 mg PO HS [facility] Last Admin: 05/20/18 21:47 Dose: 200 mg Venlafaxine HCl (Effexor -) 75 mg PO TID [facility] Last Admin: 05/21/18 05:58 Dose: 75 mg Zolpidem Tartrate (Ambien -) 10 mg PO HS PRN PRN Reason: INSOMNIA Last Admin: 05/20/18 21:47 Dose: 10 mg - Objective Vital Signs: Vital Signs Temperature 98.3 F 05/21/18 08:13 Pulse Rate 83 05/21/18 08:13 Respiratory Rate 20 05/21/18 08:13 Blood Pressure 122/70 05/21/18 08:13 O2 Sat by Pulse Oximetry (%) 98 05/21/18 08:13 Constitutional: Yes: No Distress, Calm, Obese Eyes: No: Sclera Icterus HENT: No: Nasal Congestion Cardiovascular: Yes: Regular Rate and Rhythm, S1, S2, Other (PMI non diplaced). No: JVD, Gallop, Murmur Respiratory: Yes: CTA Bilaterally. No: Accessory Muscle Use, Rales, Wheezes Gastrointestinal: Yes: Normal Bowel Sounds, Soft. No: Tenderness Musculoskeletal: Yes: Other (No kyphosis) Extremities: No: Cold Edema: No Integumentary: No: Jaundice Neurological: Yes: Alert, Oriented (x3) Psychiatric: No: Agitated Labs: CBC, BMP 05/21/18 05:30 05/21/18 06:00 INR, PTT INR 1.00 (0.83-1.09) 05/17/18 12:50 Assessment/Plan ecg: sr, pac, lvh, nl intervals, no ischemic changes echo: mild LVE. severely reduced EF (<15%), global. restrictive LV filling pattern. nl RV. mild LAE. mild MR/TR cta chest: small RUL pe, no chf tele: NSR a/p: 57 f here with sob. PE noted here, and newly diagnosed severe LV dysfunction on echo. chronic syst CHF: -no signs chf or acs here. -echo with severe LV dysfunction (LVEF 15%) with restrictive pattern. -? etiology of CMP: hypertensive? ( bp 150s/110s initially, was high few mo ago when went for knee surgery preop (surgery still being postponed)). no signif substance abuse hx (sporadic, rare cocaine in her 20s, no etoh). ? sleep apnea ( suspicious habitus). significant family hx: mother 3 "heart attacks: 1 sister sudden , another ? sudden (one of these had "enlarged heart")--if no CAD on cath, will rec CV genetics eval for familial CMP panel -needs ischemia eval--would favor cath to confidently exclude dz given severity of reduced LVEF. need to optimize creat (hold lasix and ROMI). -Stage C/NYHA Class III sx's at home (? chf sx, vs PE). BNP 700s. -clinically euvolemic. bun/creat up slightly--d/c lasix -Continue Coreg 25 bid. defer ROMI for now, to allow creat optimization for cath. -? lifevest (external defibrillator) while titrate CHF meds, given severity of EF depressions--will defer to EP at [place] (after cath) PE (subsegmental): -limited mobility (preop knee) but states she walks around her home--? PE unprovoked. -started on Eliquis for PE--needs hypercoag w/u? (outpt heme eval?) CKD: -prior creatinines here 1.2-2.8 -currently up from DOA--hold lasix htn: -bp controlled -BB, ROMI for syst CHF as doing anemia: -hgb stable. -w/u per hospitalist knee pain, preop for knee surgery: -defer surgery until coronary disease eval is completed
[2018-05-21] MEDS ORDERED: FUROSEMIDE 20 MG TABLET (FP) PO SCH (10:00)
--- NOTE | 2018-05-21 14:24 | PN ---
Progress Note (short form) - Note Progress Note: Breathing feels OK. No acute events overnight. Still with pain issues. Intake & Output 05/18/18 05/19/18 05/20/18 05/21/18 23:59 23:59 23:59 23:59 Intake Total 1220 640 380 10 Balance 1220 640 380 10 Weight 253 lb Last Vital Signs Temp Pulse Resp BP Pulse Ox 98.3 F 83 20 122/70 98 05/21/18 08:13 05/21/18 08:13 05/21/18 08:13 05/21/18 08:13 05/21/18 08:13 Active Medications Acetaminophen (Tylenol -) 650 mg PO TID PRN PRN Reason: PAIN SCALE 6-10 Last Admin: 05/21/18 13:05 Dose: 650 mg Aspirin (Ecotrin -) 81 mg PO DAILY [facility] Last Admin: 05/21/18 09:19 Dose: 81 mg Bupropion HCl (Wellbutrin -) 75 mg PO BID@0800,2000 [facility] Last Admin: 05/21/18 09:20 Dose: 75 mg Buspirone HCl (Buspar -) 15 mg PO BID [facility] Last Admin: 05/21/18 09:20 Dose: 15 mg Carvedilol (Coreg -) 25 mg PO BID [facility] Last Admin: 05/21/18 09:20 Dose: 25 mg Cyclobenzaprine HCl (Flexeril -) 10 mg PO DAILY [facility] Last Admin: 05/21/18 09:20 Dose: 10 mg Oxycodone HCl (Roxicodone -) 10 mg PO TID PRN PRN Reason: PAIN SCALE 6-10 Last Admin: 05/21/18 13:04 Dose: 10 mg Quetiapine Fumarate (Seroquel -) 200 mg PO HS [facility] Last Admin: 05/20/18 21:47 Dose: 200 mg Venlafaxine HCl (Effexor -) 75 mg PO TID [facility] Last Admin: 05/21/18 13:04 Dose: 75 mg Zolpidem Tartrate (Ambien -) 10 mg PO HS PRN PRN Reason: INSOMNIA Last Admin: 05/20/18 21:47 Dose: 10 mg Constitutional: Yes: Calm Eyes: Yes: EOM Intact HENT: Yes: Normocephalic Neck: Yes: Trachea Midline Cardiovascular: Yes: Regular Rate and Rhythm, S1, S2 Respiratory: Yes: CTA Bilaterally Gastrointestinal: Yes: Normal Bowel Sounds, Abdomen, Obese Renal/: Yes: WNL Breast(s): Yes: WNL Musculoskeletal: Yes: WNL Extremities: Yes: Other (severe left knee pain to rom) Integumentary: Yes: WNL Neurological: Yes: Alert Labs: Laboratory Results - last 24 hr 05/21/18 05/21/18 05/21/18 05:30 05:30 06:00 WBC 5.6 RBC 3.51 L Hgb 8.8 L Hct 28.0 L MCV 79.8 L MCH 24.9 L MCHC 31.2 L RDW 15.8 H Plt Count 359 MPV 7.3 L Absolute Neuts (auto) 2.2 Neutrophils % 39.6 L D Lymphocytes % 44.1 H D Monocytes % 10.6 H Eosinophils % 4.8 H D Basophils % 0.9 Nucleated RBC % 0 Sodium 142 Potassium 4.3 Chloride 111 H Carbon Dioxide 24 Anion Gap 8 BUN 28 H Creatinine 1.5 H Creat Clearance w eGFR 35.67 Random Glucose 76 Calcium 8.6 Phosphorus 3.8 Magnesium 2.2 Ferritin Cancelled 24.9 Total Bilirubin 0.2 AST 8 L ALT 23 Alkaline Phosphatase 58 Total Protein 6.8 Albumin 3.0 L Problem List - Problems (1) Pulmonary embolism Code(s): I26.99 - OTHER PULMONARY EMBOLISM WITHOUT ACUTE COR PULMONALE (2) Left anterior knee pain Code(s): M25.562 - PAIN IN LEFT KNEE (3) Arthritis of left knee Code(s): M17.12 - UNILATERAL PRIMARY OSTEOARTHRITIS, LEFT KNEE (4) Chronic pain Code(s): G89.29 - OTHER CHRONIC PAIN Qualifiers: Chronic pain type: chronic pain syndrome Qualified Code(s): G89.4 - Chronic pain syndrome Assessment/Plan NOTED PLACED ON IV HEPARIN FOR CATH CAUTION WITH DOAC USE IN MORBID OBESITY PAIN CONTROL PER PRIMARY WILL NEED FORMAL OSAS WORKUP AFTER D/C NO SMOKING DR WREN
[2018-05-21] MEDS ORDERED: HEPARIN NA (PORCINE) 5,000 UNITS/ML 1ML VIAL IVPUSH PRN ×2 (14:25)
--- NOTE | 2018-05-21 17:16 | PN ---
Progress Note (short form) - Note Progress Note: Renal follow up for TEDDY Pt seen and examined at the bedside no acute complaints denies sob, cp, abd pain, n/v/d making urine Vital Signs Temperature 98.3 F 05/21/18 08:13 Pulse Rate 83 05/21/18 08:13 Respiratory Rate 20 05/21/18 08:13 Blood Pressure 122/70 05/21/18 08:13 O2 Sat by Pulse Oximetry (%) 98 05/21/18 08:13 Intake & Output 05/18/18 05/19/18 05/20/18 05/21/18 23:59 23:59 23:59 23:59 Intake Total 1220 640 380 370 Balance 1220 640 380 370 Weight 114.759 kg NAD RRR, No M/R CTA, no rales or wheeze soft, obese, NT/ND no LE edema, clubbing or cyanosis CBC, BMP 05/21/18 05:30 05/21/18 06:00 Current Medications Acetaminophen (Tylenol -) 650 mg PO TID PRN PRN Reason: PAIN SCALE 6-10 Last Admin: 05/21/18 13:05 Dose: 650 mg Aspirin (Ecotrin -) 81 mg PO DAILY [facility] Last Admin: 05/21/18 09:19 Dose: 81 mg Bupropion HCl (Wellbutrin -) 75 mg PO BID@0800,2000 [facility] Last Admin: 05/21/18 09:20 Dose: 75 mg Buspirone HCl (Buspar -) 15 mg PO BID [facility] Last Admin: 05/21/18 09:20 Dose: 15 mg Carvedilol (Coreg -) 25 mg PO BID [facility] Last Admin: 05/21/18 09:20 Dose: 25 mg Cyclobenzaprine HCl (Flexeril -) 10 mg PO DAILY [facility] Last Admin: 05/21/18 09:20 Dose: 10 mg Heparin Sodium (Porcine) (Heparin -) 1,000 unit IVPUSH PRN PRN PRN Reason: Heparin Heparin Sodium (Porcine) (Heparin -) 5,000 unit IVPUSH PRN PRN PRN Reason: Heparin HEPARIN SOD,PORK IN 0.45% NACL (Heparin-1/2ns 25,000 Units/500) 25,000 units in 500 mls @ 20 mls/hr IVPB TITR [facility]; Protocol Oxycodone HCl (Roxicodone -) 10 mg PO TID PRN PRN Reason: PAIN SCALE 6-10 Last Admin: 05/21/18 13:04 Dose: 10 mg Quetiapine Fumarate (Seroquel -) 200 mg PO HS [facility] Last Admin: 05/20/18 21:47 Dose: 200 mg Venlafaxine HCl (Effexor -) 75 mg PO TID [facility] Last Admin: 05/21/18 13:04 Dose: 75 mg Zolpidem Tartrate (Ambien -) 10 mg PO HS PRN PRN Reason: INSOMNIA Last Admin: 05/20/18 21:47 Dose: 10 mg 57 year old AA woman with hx of CHF, Braydcardia, GERD, TEDDY/CKD, former smoker who presented with complaints of TIRADO and found to have PE + severe systolic cardiomyopathy with TEDDY during hospital admission. #TEDDY likely due to contrast nephropathy (given timing of injury) +/- hemodynamic effect form ACEi #TIRADO #Pulmonary Embolism #Cardiomyopathy #Anemia Urine studies show FeNa < 1, indicaing preserved tubular function pt appears to be evolemic at the present time continue present meds no IVF given low LV EF holding ACEi for cardiac cath on 05/23 Trend renal function and electrolytes Thank you Will follow Dino Fuentes DO
[2018-05-21] MEDS ORDERED: HEPARIN SOD,PORK IN 0.45% NACL 25,000 UNITS/500 ML INFUS.BAG IVPB SCH (21:00)
[2018-05-21] MEDS: QUEtiapine FUMARATE 200 MG TABLET PO SCH (22:08)
[2018-05-21] MEDS: ZOLPIDEM TARTRATE 5 MG TABLET PO PRN (22:08)
[2018-05-22] MEDS: VENLAFAXINE HCL 75 MG TABLET PO SCH (05:58)
[2018-05-22] MEDS: oxyCODONE HCL 5 MG TABLET PO PRN ×2 (05:58→13:26)
[2018-05-22] MEDS: ACETAMINOPHEN 325 MG TABLET (FP) PO PRN ×2 (05:59→13:27)
[2018-05-22 06:06] LABS: SERUM IRON SATURATION 4 % (15-55); TOTAL IRON BINDING CAPACITY 389 ug/dL (250-450); UIBC 373 ug/dL (131-425)
[2018-05-22 06:59] LABS: HEMATOCRIT 26.9 % (32.4-45.2); HEMOGLOBIN 8.4 GM/dL (10.7-15.3); MCH 24.8 pg (25.7-33.7); MCHC 31.3 g/dl (32.0-36.0); MEAN CELL VOLUME 79.1 fl (80-96); MEAN PLT VOLUME 7.4 fl (7.5-11.1); PLATELET COUNT 342 K/MM3 (134-434); RDW 15.2 % (11.6-15.6); WHITE BLOOD COUNT 5.7 K/mm3 (4.0-10.0)
[2018-05-22 07:06] LABS: ALK PHOS 60 U/L (45-117); ANION GAP 4 MMOL/L (8-16); BILIRUBIN,TOTAL 0.2 mg/dL (0.2-1); BLOOD UREA NITROGEN 29 mg/dL (7-18); CALCIUM 8.4 mg/dL (8.5-10.1); CHLORIDE 111 mmol/L (98-107); CO2 26 mmol/L (21-32); CREATININE 1.4 mg/dL (0.55-1.3); GLUCOSE,RANDOM 85 mg/dL (74-106); MAGNESIUM 2.1 mg/dL (1.8-2.4); PHOSPHOROUS 3.6 mg/dL (2.5-4.9); POTASSIUM 4.1 mmol/L (3.5-5.1); SGOT/AST 9 U/L (15-37); SGPT/ALT 24 U/L (13-61); SODIUM 140 mmol/L (136-145); TOT PROT 6.9 g/dl (6.4-8.2)
[2018-05-22] MEDS: buPROPion HCL 75 MG TABLET PO SCH (08:39)
--- NOTE | 2018-05-22 10:06 | PN ---
Progress Note, Physician History of Present Illness: pulmonary alert,no distress,-cp,-sob - Current Medication List Current Medications: Active Medications Acetaminophen (Tylenol -) 650 mg PO TID PRN PRN Reason: PAIN SCALE 6-10 Last Admin: 05/22/18 05:59 Dose: 650 mg Aspirin (Ecotrin -) 81 mg PO DAILY [facility] Last Admin: 05/21/18 09:19 Dose: 81 mg Bupropion HCl (Wellbutrin -) 75 mg PO BID@0800,2000 [facility] Last Admin: 05/22/18 08:39 Dose: 75 mg Buspirone HCl (Buspar -) 15 mg PO BID [facility] Last Admin: 05/21/18 21:18 Dose: 15 mg Carvedilol (Coreg -) 25 mg PO BID [facility] Last Admin: 05/21/18 21:18 Dose: 25 mg Cyclobenzaprine HCl (Flexeril -) 10 mg PO DAILY [facility] Last Admin: 05/21/18 09:20 Dose: 10 mg Heparin Sodium (Porcine) (Heparin -) 1,000 unit IVPUSH PRN PRN PRN Reason: Heparin Heparin Sodium (Porcine) (Heparin -) 5,000 unit IVPUSH PRN PRN PRN Reason: Heparin HEPARIN SOD,PORK IN 0.45% NACL (Heparin-1/2ns 25,000 Units/500) 25,000 units in 500 mls @ 20 mls/hr IVPB TITR [facility]; Protocol Last Admin: 05/21/18 21:17 Dose: 1,000 units/hr, 20 mls/hr Oxycodone HCl (Roxicodone -) 10 mg PO TID PRN PRN Reason: PAIN SCALE 6-10 Last Admin: 05/22/18 05:58 Dose: 10 mg Quetiapine Fumarate (Seroquel -) 200 mg PO HS [facility] Last Admin: 05/21/18 22:08 Dose: 200 mg Venlafaxine HCl (Effexor -) 75 mg PO TID [facility] Last Admin: 05/22/18 05:58 Dose: 75 mg Zolpidem Tartrate (Ambien -) 10 mg PO HS PRN PRN Reason: INSOMNIA Last Admin: 05/21/18 22:08 Dose: 10 mg - Objective Vital Signs: Vital Signs Temperature 98.2 F 05/22/18 06:00 Pulse Rate 82 05/22/18 06:00 Respiratory Rate 18 05/22/18 06:00 Blood Pressure 118/67 05/22/18 06:00 O2 Sat by Pulse Oximetry (%) 97 05/21/18 22:00 Constitutional: Yes: Calm, Obese Eyes: Yes: WNL HENT: Yes: WNL Neck: Yes: WNL Cardiovascular: Yes: Regular Rate and Rhythm, S1, S2 Respiratory: Yes: CTA Bilaterally Gastrointestinal: Yes: Normal Bowel Sounds, Soft Extremities: Yes: WNL Edema: No Labs: CBC, BMP 05/22/18 05:30 05/22/18 05:30 INR, PTT INR 1.00 (0.83-1.09) 05/17/18 12:50 Assessment/Plan Problem List - Problems (1) Pulmonary embolism Code(s): I26.99 - OTHER PULMONARY EMBOLISM WITHOUT ACUTE COR PULMONALE (2) Left anterior knee pain Code(s): M25.562 - PAIN IN LEFT KNEE (3) Arthritis of left knee Code(s): M17.12 - UNILATERAL PRIMARY OSTEOARTHRITIS, LEFT KNEE (4) Chronic pain Code(s): G89.29 - OTHER CHRONIC PAIN Qualifiers: Chronic pain type: chronic pain syndrome Qualified Code(s): G89.4 - Chronic pain syndrome Assessment/Plan AC PAIN CONTROL PER PRIMARY CARDIAC WORKUP ONGOING WILL NEED FORMAL OSAS WORKUP AFTER D/C NO SMOKING W/U FOR HYPERCOAGULABLE STATE OUTPATIENT DR OHARA
[2018-05-22 10:37] VITALS: BP 109/74; PULSE 85; TEMP 98
[2018-05-22] MEDS: busPIRone HCL 5 MG TABLET PO SCH (10:38)
[2018-05-22] MEDS: CYCLOBENZAPRINE HCL 10 MG TABLET (FP) PO SCH (10:38)
[2018-05-22] MEDS: CARVEDILOL 25 MG TABLET (FP) PO SCH (10:38)
[2018-05-22] MEDS: ASPIRIN COATED 81 MG TABLET.EC PO SCH (10:38)
--- NOTE | 2018-05-22 11:12 | PN ---
Progress Note (short form) - Note Progress Note: chief Complaint: sob History of Present Illness: no sob in bed/chair, no orthopnea. no cp, palpitations, syncope no etoh, drugs - Current Medication List Current Medications Generic Name Dose Route Start Last Admin Trade Name Freq PRN Reason Stop Dose Admin Acetaminophen 650 mg 05/19/18 12:54 05/22/18 05:59 Tylenol - PO 650 mg TID PRN Administration PAIN SCALE 6-10 Aspirin 81 mg 05/20/18 10:00 05/22/18 10:38 Ecotrin - PO 81 mg DAILY [facility] Administration Bupropion HCl 75 mg 05/19/18 20:00 05/22/18 08:39 Wellbutrin - PO 75 mg BID@0800,2000 [facility] Administration Buspirone HCl 15 mg 05/19/18 22:00 05/22/18 10:38 Buspar - PO 15 mg BID [facility] Administration Carvedilol 25 mg 05/19/18 22:00 05/22/18 10:38 Coreg - PO 25 mg BID [facility] Administration Cyclobenzaprine HCl 10 mg 05/20/18 10:00 05/22/18 10:38 Flexeril - PO 10 mg DAILY [facility] Administration Heparin Sodium (Porcine) 1,000 unit 05/21/18 14:25 Heparin - IVPUSH PRN PRN Heparin Heparin Sodium (Porcine) 5,000 unit 05/21/18 14:25 Heparin - IVPUSH PRN PRN Heparin HEPARIN SOD,PORK IN 0.45% NACL 25,000 units in 500 mls @ 20 mls/hr 05/21/18 21 :00 05/21/18 21:17 Heparin-1/2ns 25,000 Units/500 IVPB 1,000 units/hr TITR [facility] 20 mls/hr Administration Protocol 1,000 UNITS/HR Oxycodone HCl 10 mg 05/19/18 12:54 05/22/18 05:58 Roxicodone - PO 10 mg TID PRN Administration PAIN SCALE 6-10 Quetiapine Fumarate 200 mg 05/19/18 22:00 05/21/18 22:08 Seroquel - PO 200 mg HS [facility] Administration Venlafaxine HCl 75 mg 05/19/18 14:00 05/22/18 05:58 Effexor - PO 75 mg TID [facility] Administration Zolpidem Tartrate 10 mg 05/19/18 12:54 05/21/18 22:08 Ambien - PO 10 mg HS PRN Administration INSOMNIA - Objective Vital Signs: Vital Signs Period Temp Pulse Resp BP Sys/Vilchis Pulse Ox Last 24 Hr 97.5 F-98.4 F 78-85 18-20 109-132/65-79 97-97 Constitutional: Yes: No Distress, Calm, Obese Eyes: No: Sclera Icterus HENT: No: Nasal Congestion Cardiovascular: Yes: Regular Rate and Rhythm, S1, S2, Other (PMI non diplaced). No: JVD, Gallop, Murmur Respiratory: Yes: CTA Bilaterally. No: Accessory Muscle Use, Rales, Wheezes Gastrointestinal: Yes: Normal Bowel Sounds, Soft. No: Tenderness Extremities: No: Cold Edema: No Integumentary: No: Jaundice Neurological: Yes: Alert, Oriented (x3) Psychiatric: No: Agitated Labs: CBC, BMP 05/22/18 05:30 05/22/18 05:30 ecg: sr, pac, lvh, nl intervals, no ischemic changes echo: mild LVE. severely reduced EF (<15%), global. restrictive LV filling pattern. nl RV. mild LAE. mild MR/TR cta chest: small RUL pe, no chf tele: SR a/p: 57 f here with sob. PE noted here, and newly diagnosed severe LV dysfunction on echo. chronic syst CHF: -no signs chf or acs here. -echo with severe LV dysfunction (LVEF 15%) with restrictive pattern. -? etiology of CMP: hypertensive? ( bp 150s/110s initially, was high few mo ago when went for knee surgery preop (surgery still being postponed)). no signif substance abuse hx (sporadic, rare cocaine in her 20s, no etoh). ? sleep apnea ( suspicious habitus). significant family hx: mother 3 "heart attacks: 1 sister sudden , another ? sudden (one of these had "enlarged heart")--if no CAD on cath, will rec CV genetics eval for familial CMP panel -clinically euvolemic. bun/creat up slightly--d/c lasix -Continue Coreg 25 bid. defer ROMI for now, to allow creat optimization for cath. -? lifevest (external defibrillator) while titrate CHF meds, given severity of EF depressions--will defer to EP at [place] (after cath) PE (subsegmental): -limited mobility (preop knee) but states she walks around her home--? PE unprovoked. -started on Eliquis for PE--needs hypercoag w/u? (outpt heme eval?) CKD: -prior creatinines here 1.2-2.8 -currently stable--hold lasix htn: -bp controlled anemia: -hgb stable. -w/u per hospitalist knee pain, preop for knee surgery: -defer surgery until coronary disease eval is completed transfer planned later today for cath
--- NOTE | 2018-05-22 15:12 | PN ---
Progress Note (short form) - Note Progress Note: Renal follow up for TEDDY Pt seen and examined at the bedside earlier today no acute complaints for transfer for cardiac cath no CP, SOb, abd pain Vital Signs Temperature 98 F 05/22/18 10:00 Pulse Rate 85 05/22/18 10:00 Respiratory Rate 20 05/22/18 10:00 Blood Pressure 109/74 05/22/18 10:00 O2 Sat by Pulse Oximetry (%) 97 05/22/18 10:00 NAD RRR, No M/R CTA, no rales or wheeze soft, obese, NT/ND no LE edema, clubbing or cyanosis Last Admin: 05/21/18 09:19 Dose: 81 mg Bupropion HCl (Wellbutrin -) 75 mg PO BID@0800,2000 [facility] Last Admin: 05/21/18 09:20 Dose: 75 mg Buspirone HCl (Buspar -) 15 mg PO BID [facility] CBC, BMP 05/22/18 05:30 05/22/18 05:30 57 year old AA woman with hx of CHF, Braydcardia, GERD, TEDDY/CKD, former smoker who presented with complaints of TIRADO and found to have PE + severe systolic cardiomyopathy with TEDDY during hospital admission. #TEDDY likely due to contrast nephropathy (given timing of injury) +/- hemodynamic effect form ACEi #TIRADO #Pulmonary Embolism #Cardiomyopathy #Anemia Renal function slightly improved/stable for cardiac cath in next 24 hours will need to monitor renal function closely after contrast exposure Dino Fuentes DO
--- NOTE | 2018-05-22 16:47 | DS ---
Physical Exam: SUBJECTIVE: Patient seen and examined this AM. Discussed with patient the likely transfer for cath, and she agreed and understood the situation. OBJECTIVE: Vital Signs Period Temp Pulse Resp BP Sys/Vilchis Pulse Ox Last 24 Hr 97.5 F-98.4 F 78-85 18-20 109-132/65-79 97-97 PHYSICAL EXAM GENERAL: A&O, morbidly obese, no acute distress HEAD: Normocephalic, atraumatic. EYES: PERRL, no scleral icterus EARS, NOSE, THROAT: oropharynx clear without exudates. Moist mucous membranes. NECK: supple without lymphadenopathy LUNGS: CTA b/l, no crackles or wheezes HEART: Regular rate and rhythm, normal S1 and S2 without murmur ABDOMEN: Soft, nontender to palpation, normoactive bowel sounds MUSCULOSKELETAL: No bony deformities or tenderness. EXTREMITIES: 2+ pulses, warm, well-perfused. No peripheral edema. NEUROLOGICAL: Cranial nerves II-XII grossly intact. Normal speech. PSYCHIATRIC: Cooperative. Good eye contact. Appropriate mood and affect. SKIN: Warm, dry, no rashes or lesions noted LABS Laboratory Results - last 24 hr 05/21/18 05/22/18 05/22/18 05:30 03:08 05:30 WBC RBC Hgb Hct MCV MCH MCHC RDW Plt Count MPV PTT (Actin FS) 68.3 H Sodium 140 Potassium 4.1 Chloride 111 H Carbon Dioxide 26 Anion Gap 4 L BUN 29 H Creatinine 1.4 H Creat Clearance w eGFR 38.62 Random Glucose 85 Calcium 8.4 L Phosphorus 3.6 Magnesium 2.1 Iron 16 L TIBC 389 Iron Saturation 4 L Total Bilirubin 0.2 AST 9 L ALT 24 Alkaline Phosphatase 60 Total Protein 6.9 Albumin 3.0 L 05/22/18 05:30 WBC 5.7 RBC 3.40 L Hgb 8.4 L Hct 26.9 L MCV 79.1 L MCH 24.8 L MCHC 31.3 L RDW 15.2 Plt Count 342 MPV 7.4 L PTT (Actin FS) Sodium Potassium Chloride Carbon Dioxide Anion Gap BUN Creatinine Creat Clearance w eGFR Random Glucose Calcium Phosphorus Magnesium Iron TIBC Iron Saturation Total Bilirubin AST ALT Alkaline Phosphatase Total Protein Albumin HOSPITAL COURSE: Date of Admission:05/17/18 Date of Discharge: 05/22/18 HPI on Admission 57F w/ pmhx of HTN, GERD, chronic opioid use, depression presented to the ED with complaints of shortness of breath that started last night while she was asleep. Pt states she was trying to sleep in bed when she started become short of breath around 8pm last night. This morning she states that shortness of breath became worse and complains of associated headache that she rates 3/10. Headache is located bilaterally in temporal region. She reports that she had a similar episode about 1 year ago. Admits to subjective fevers, chills, hot/cold flashes. Denies chest pain, abdominal pain, nausea/vomiting, urinary/bowel symptoms. She does admit to chronic L knee pain due to arthritis. Hospital Course She was found to have a possible small subbsegmental PE in the AMANDA. She was started on Eliquis for treatment of her PE. She was seen by Cardiology who recommended an Echo. Echo was found to show an EF < 15%, with dilation and hypokinesis of the left ventricle. It was recommended by cardiology that she be transferred for a cardiac cath at that point. Eliquis was held and the patient was started on a heparin drip and prepared for transfer. Of note her knee pain was treated with her outpatient perscribed Percocet 10 mg PO TID. She was deemed safe for transfer and was transferred for cardiac cath as per cardiology. Minutes to complete discharge: 36 Discharge Summary Reason For Visit: PULMONARY EMBOLISM Condition: Stable - Instructions Diet, Activity, Other Instructions: You were admitted to the hospital with Shortness of breath. You were found to have a PE (a blood clot in your lungs) for which you were started on a blood thinner (Eliquis). You were seen by cardiology who wanted an Echo (ultrasound of your heart). That ultrasound revealed multiple abnormalities and it was recommended that you be transferred to a tertiary care center for a cardiac catheterization for further evaluation and possible treatment of any heart vessel blockages. Please continue all of your current medications as they were prescribed prior to hospitalization as well as all current medications being given during this hospitalization. Please follow all recommendations of the medical team upon transfer. Please continue heparin drip until held for cardiac catheterization by cardiology. It is important that you follow up with your primary care physician within one week after you are discharged from the other hospital. You should also follow up with cardiology (heart doctor) within 1-2 weeks of discharge and follow all recommendations made by the cardiologists. Disposition: TRANSFER ACUTE CARE/OTHER HOSP - Home Medications Comprehensive Discharge Medication List: Ambulatory Orders Aspirin [Ecotrin] 81 mg PO DAILY 03/24/16 Bupropion HCl 75 mg PO BID 08/03/17 Carvedilol [Coreg] 25 mg PO BID 08/03/17 Cyclobenzaprine HCl 10 mg PO DAILY 08/04/17 Oxycodone HCl/Acetaminophen [Oxycodone-Acetaminophen 10-325] 1 each PO Q8H PRN MDD 3/day 08/04/17 Quetiapine Fumarate [Seroquel -] 200 mg PO HS 08/04/17 Venlafaxine HCl ER [Effexor Xr -] 75 mg PO TID 01/12/18 Zolpidem Tartrate [Ambien] 10 mg PO HS 01/12/18 Buspirone HCl 15 mg PO BID 05/18/18 Heparin - 1,000 unit IVPUSH PRN PRN vial 05/22/18 Heparin - 5,000 unit IVPUSH PRN PRN vial 05/22/18 This patient is new to me today: No Emergency Visit: Yes ED Registration Date: 05/17/18 Care time: The patient presented to the Emergency Department on the above date and was hospitalized for further evaluation of their emergent condition. Critical Care patient: No - Discharge Referral Referred to [facility] Med P.C.: No
--- NOTE | 2018-05-22 17:04 | PN ---
Teaching Attending Note Name of Resident: Harshad Mccarty ATTENDING PHYSICIAN STATEMENT I reviewed the resident's note and discussed the case with the resident. I agree with the resident's findings and plan as documented. ASSESSMENT AND PLAN: pt was transferred out for cardiac cath prior to my assessment.
== END 2018-05-22 14:17 | disposition short-term general hospital (02) | DRG 176 ==
LOC: JER 11:59 → JERBED 19:31 → OBSVTOIN 21:40 → J6S 23:47 → J4W 05-19 12:25
PROVIDERS: ADMIT Internal Medicine; ATTEND Internal Medicine
DX: I26.99 Other pulmonary embolism without acute cor pulmonale (principal); F11.20 Opioid dependence, uncomplicated; Z68.41 Body mass index [BMI] 40.0-44.9, adult; I42.9 Cardiomyopathy, unspecified; N17.9 Acute kidney failure, unspecified; I13.0 Hypertensive heart and chronic kidney disease with heart failure and stage 1 through stage 4 chronic kidney disease, or unspecified chronic kidney disease; I50.22 Chronic systolic (congestive) heart failure; K21.9 Gastro-esophageal reflux disease without esophagitis; F32.9 Major depressive disorder, single episode, unspecified; D64.9 Anemia, unspecified; M17.12 Unilateral primary osteoarthritis, left knee; G89.4 Chronic pain syndrome; E66.01 Morbid (severe) obesity due to excess calories; N18.9 Chronic kidney disease, unspecified; Z87.891 Personal history of nicotine dependence
CPT/HCPCS: 36415; 36600; 71045-TC-FY; 71275-TC; 76775-TC; 76856-TC; 80048; 80053; 80307; 81003; 81015; 82436; 82550; 82553; 82570; 82728; 82803; 83540; 83550; 83735; 83880; 84100; 84133; 84156; 84300; 84466; 84484; 84540; 85025; 85027; 85044; 85379; 85610; 85730; 86038; 93005; 93010; 93306-TC; 93971-TC; 94761; 99285-25; G0378; G0480

== ENCOUNTER 2019-01-03 08:43 | Inpatient (IN) | payer OTHER ==
[2019-01-03] MEDS ORDERED: ONDANSETRON 4 MG/2 ML VIAL IVPUSH ONE ×2 (09:37→14:56)
--- NOTE | 2019-01-03 09:37 | PDOC ---
History of Present Illness - General History Source: Patient Exam Limitations: No Limitations - History of Present Illness Initial Comments: 01/03/19 09:31 57 yo female pmh GERD, chronic opioid use for left knee pain (pending knee replacement), depression, HTN, CHF (last EF documented EF < 15%, has not taken Lasix in 1 month) PE and Cardiac stent 05/2018 (on eliquis) presents to the ED for 2 days of vomiting and generalized weakness. Pt states she is unable to keep food and liquids down since yesterday with associated epigastric pain that feels like pressure without radiation. Last BM 3 days ago (on percocets, takes senna) which is normal however, stools described as loose. Denies F/C, CP, SOB, recent travel, eating new or different foods, sick contacts, calf swelling. <Tej Retana - Last Filed: 01/03/19 19:10> - History of Present Illness Initial Comments: 01/03/19 20:03 had not taken flexeril in 1 month, but restarted a few days ago, not lasix. correction Pt had cath in 2017, no stents placed on eliquis for PE in August. last took all her meds on 01/02 in the morning, including eliquis <Natalee Sibley - Last Filed: 01/03/19 20:03> <Omid Rivera - Last Filed: 01/04/19 14:04> - General Chief Complaint: Pain, Acute Stated Complaint: NAUSEOUS/ VOMITING Time Seen by Provider: 01/03/19 09:18 Past History - Past Medical History Anemia: No Asthma: No Cancer: No Cardiac Disorders: Yes (blood clot) CVA: No COPD: No CHF: No Dementia: No Diabetes: Yes (not on meds) GI Disorders: Yes (REFLUX) Disorders: No HTN: Yes (on med) Hypercholesterolemia: No Liver Disease: No Seizures: No Thyroid Disease: No - Immunization History Immunization Up to Date: Yes - Suicide/Smoking/Psychosocial Hx Smoking History: Unknown if ever smoked Have you smoked in the past 12 months: No Hx Alcohol Use: No Drug/Substance Use Hx: Yes (pain medication misuse in past) Substance Use Type: None Hx Substance Use Treatment: Yes ([facility] inpatient detox) <Tej Retana - Last Filed: 01/03/19 19:10> <Natalee Sibley - Last Filed: 01/03/19 20:03> <Omid Rivera - Last Filed: 01/04/19 14:04> - Past Medical History Allergies/Adverse Reactions: Allergies Allergy/AdvReac Type Severity Reaction Status Date / Time No Known Allergies Allergy Verified 01/03/19 08:48 Home Medications: Ambulatory Orders Carvedilol [Coreg] 25 mg PO BID 08/03/17 Cyclobenzaprine HCl 10 mg PO DAILY 08/04/17 Oxycodone HCl/Acetaminophen [Oxycodone-Acetaminophen 10-325] 1 each PO Q8H PRN MDD 3/day 08/04/17 Quetiapine Fumarate [Seroquel -] 200 mg PO HS 08/04/17 Venlafaxine HCl ER [Effexor Xr -] 75 mg PO TID 01/12/18 Zolpidem Tartrate [Ambien] 10 mg PO HS 01/12/18 Apixaban [Eliquis -] 5 mg PO BID 01/03/19 Furosemide [Lasix -] 40 mg PO BID 01/03/19 Gabapentin [Neurontin -] 400 mg PO Q8H 01/03/19 Lisinopril [Zestril] 2.5 mg PO DAILY 01/03/19 Ranitidine [Zantac -] 150 mg PO BID 01/03/19 Spironolactone [Aldactone] 25 mg PO DAILY 01/03/19 *Physical Exam - Vital Signs Last Vital Signs Temp Pulse Resp BP Pulse Ox 99.3 F 82 24 H 187/102 H 97 01/03/19 08:52 01/03/19 08:52 01/03/19 08:52 01/03/19 08:52 01/03/19 08:52 <Tej Retana - Last Filed: 01/03/19 19:10> - Vital Signs Last Vital Signs Temp Pulse Resp BP Pulse Ox 98.9 F 90 18 179/91 H 98 01/03/19 12:45 01/03/19 12:45 01/03/19 12:45 01/03/19 12:45 01/03/19 12:45 <Natalee Sibley - Last Filed: 01/03/19 20:03> - Vital Signs Last Vital Signs Temp Pulse Resp BP Pulse Ox 98.6 F 74 19 147/77 97 01/04/19 10:25 01/04/19 10:25 01/04/19 10:25 01/04/19 10:25 01/04/19 09:00 <Omid Rivera - Last Filed: 01/04/19 14:04> ED Treatment Course - LABORATORY CBC & Chemistry Diagram: 01/03/19 09:34 01/03/19 09:34 - RADIOLOGY Radiology Studies Ordered: Category Date Time Status CHEST X-RAY PORTABLE* [RAD] Stat Radiology 01/03/19 09:28 Ordered <Tej Retana - Last Filed: 01/03/19 19:10> - LABORATORY CBC & Chemistry Diagram: 01/03/19 09:34 01/03/19 09:34 - ADDITIONAL ORDERS Additional order review: Laboratory Results 01/03/19 01/03/19 10:50 09:34 Sodium 138 Potassium 4.3 Chloride 104 Carbon Dioxide 27 Anion Gap 7 L BUN 21 H Creatinine 1.4 H Est GFR (CKD-EPI)AfAm 47.55 Est GFR (CKD-EPI)NonAf 41.02 Random Glucose 133 H Calcium 9.4 Phosphorus 3.0 Magnesium 2.1 Total Bilirubin 0.3 AST 21 ALT 34 Alkaline Phosphatase 81 Creatine Kinase 292 H Creatine Kinase Index 0.8 CK-MB (CK-2) 2.4 Troponin I < 0.02 B-Natriuretic Peptide 598.0 H Total Protein 7.6 Albumin 3.5 Lipase 97 Urine Color Yellow Urine Appearance Clear Urine pH 8.5 H D Ur Specific [place] 1.023 Urine Protein 1+ H Urine Glucose (UA) Negative Urine Ketones Negative Urine Blood Negative Urine Nitrite Negative Urine Bilirubin Negative Urine Urobilinogen 1.0 Ur Leukocyte Esterase Negative Urine WBC (Auto) 1 Urine RBC (Auto) 1 Urine Casts (Auto) 0 U Epithel Cells (Auto) 3.2 Urine Bacteria (Auto) 52.0 01/03/19 09:34 RBC 3.72 MCV 81.9 MCHC 31.4 L RDW 13.9 MPV 7.8 Neutrophils % 84.9 H D Lymphocytes % 9.9 D Monocytes % 4.4 Eosinophils % 0.5 D Basophils % 0.3 - Medications Given in the ED: ED Medications Discontinued Medications Generic Name Dose Route Start Last Admin Trade Name Freq PRN Reason Stop Dose Admin Diphenhydramine HCl 12.5 mg 01/03/19 10:26 01/03/19 10:58 Benadryl Injection - IVPUSH 01/03/19 10:27 12.5 mg ONCE ONE Administration Sodium Chloride 1,000 mls @ 1,000 mls/hr 01/03/19 18:36 01/03/19 19:35 Normal Saline - IV 01/03/19 19:35 1,000 mls/hr ASDIR STA Administration Morphine Sulfate 4 mg 01/03/19 10:07 01/03/19 10:51 Morphine Sulfate IVPUSH 01/03/19 10:08 4 mg ONCE ONE Administration Morphine Sulfate 4 mg 01/03/19 16:32 01/03/19 17:45 Morphine Sulfate IVPUSH 01/03/19 16:33 4 mg ONCE ONE Administration Ondansetron HCl 4 mg 01/03/19 09:37 01/03/19 09:39 Zofran Injection IVPUSH 01/03/19 09:38 4 mg ONCE ONE Administration Ondansetron HCl 4 mg 01/03/19 14:56 01/03/19 15:23 Zofran Injection IVPUSH 01/03/19 14:57 4 mg ONCE ONE Administration <Natalee Sibley - Last Filed: 01/03/19 20:03> - LABORATORY CBC & Chemistry Diagram: 01/04/19 05:30 01/04/19 06:01 - ADDITIONAL ORDERS Additional order review: 01/03/19 10:50 Urine Culture - Final Urine - Urine Clean Catch Contaminated: Please Repeat 01/03/19 09:34 RBC 3.72 MCV 81.9 MCHC 31.4 L RDW 13.9 MPV 7.8 Neutrophils % 84.9 H D Lymphocytes % 9.9 D Monocytes % 4.4 Eosinophils % 0.5 D Basophils % 0.3 - Medications Given in the ED: ED Medications Discontinued Medications Generic Name Dose Route Start Last Admin Trade Name Fatoumata PRN Reason Stop Dose Admin Diphenhydramine HCl 12.5 mg 01/03/19 10:26 01/03/19 10:58 Benadryl Injection - IVPUSH 01/03/19 10:27 12.5 mg ONCE ONE Administration Heparin Sodium (Porcine) 5,000 unit 01/03/19 22:40 01/03/19 23:39 Heparin - IVPUSH 01/03/19 22:41 5,000 unit ONCE ONE Administration Sodium Chloride 1,000 mls @ 1,000 mls/hr 01/03/19 18:36 01/03/19 19:35 Normal Saline - IV 01/03/19 19:35 1,000 mls/hr ASDIR STA Administration Morphine Sulfate 4 mg 01/03/19 10:07 01/03/19 10:51 Morphine Sulfate IVPUSH 01/03/19 10:08 4 mg ONCE ONE Administration Morphine Sulfate 4 mg 01/03/19 16:32 01/03/19 17:45 Morphine Sulfate IVPUSH 01/03/19 16:33 4 mg ONCE ONE Administration Ondansetron HCl 4 mg 01/03/19 09:37 01/03/19 09:39 Zofran Injection IVPUSH 01/03/19 09:38 4 mg ONCE ONE Administration Ondansetron HCl 4 mg 01/03/19 14:56 01/03/19 15:23 Zofran Injection IVPUSH 01/03/19 14:57 4 mg ONCE ONE Administration <Omid Rivera - Last Filed: 01/04/19 14:04> Medical Decision Making - Medical Decision Making 01/03/19 18:34 57 yo female pmh GERD, chronic opioid use for left knee pain (pending knee replacement), depression, HTN, CHF (last EF documented EF < 15%, has not taken Lasix in 1 month) PE and Cardiac cath 05/2018 (on eliquis) presents to the ED for 2 days of vomiting and generalized weakness. Pt states she is unable to keep food and liquids down since yesterday with associated epigastric pain that feels like pressure without radiation. Last BM 3 days ago (on percocets, takes senna) which is normal however, stool described as loose and dark. Denies F/C, CP, SOB, recent travel, eating new or different foods, sick contacts, calf swelling. vitals show elevated temp Pt complaining of pain bilateral upper quadrant <Tej Retana - Last Filed: 01/03/19 19:10> *DC/Admit/Observation/Transfer - Discharge Dispostion Decision to Admit order: Yes <Tej Retana - Last Filed: 01/03/19 19:10> <Natalee Sibley - Last Filed: 01/03/19 20:03> <Omid Rivera - Last Filed: 01/04/19 14:04> Diagnosis at time of Disposition: Intractable pain, Gall stones Nausea & vomiting Qualifiers: Vomiting type: unspecified Vomiting Intractability: non-intractable Qualified Code(s): R11.2 - Nausea with vomiting, unspecified - Discharge Dispostion Condition at time of disposition: Stable
[2019-01-03] MEDS ORDERED: ONDANSETRON 4 MG/2 ML VIAL ONE ×2 (09:38→15:15)
[2019-01-03 09:59] LABS: BASO % 0.3 % (0-2.0); EOS % 0.5 % (0-4.5); HEMATOCRIT 30.5 % (32.4-45.2); HEMOGLOBIN 9.6 GM/dL (10.7-15.3); LYMPH % 9.9 % (8-40); MCH 25.8 pg (25.7-33.7); MCHC 31.4 g/dl (32.0-36.0); MEAN CELL VOLUME 81.9 fl (80-96); MEAN PLT VOLUME 7.8 fl (7.5-11.1); MONO % 4.4 % (3.8-10.2); NEUT % 84.9 % (42.8-82.8); PLATELET COUNT 400 K/MM3 (134-434); RBC 3.72 M/mm3 (3.60-5.2); RDW 13.9 % (11.6-15.6); WHITE BLOOD COUNT 7.5 K/mm3 (4.0-10.0)
[2019-01-03] MEDS ORDERED: morphine SULFATE 4 MG/ML VIAL IVPUSH ONE ×2 (10:07→16:32)
--- NOTE | 2019-01-03 10:35 | PDOC ---
Documentation entered by Jyotsna Newell SCRIBE, acting as scribe for Omid Rivera MD. Omid Rivera MD: This documentation has been prepared by the Reece green Daisy, SCRIBE, under my direction and personally reviewed by me in its entirety. I confirm that the documentation accurately reflects all work, treatment, procedures, and medical decision making performed by me. Attending Attestation - Resident Resident Name: Tej Retana - ED Attending Attestation I have performed the following: I have examined & evaluated the patient, The case was reviewed & discussed with the resident, I agree w/resident's findings & plan - HPI HPI: 01/03/19 10:15 The patient is a 57YOF with a PMH of GERD, chronic opiod use for left knee pain (pending knee replacement), depression, HTN, CHF (last EF documented EF<15%, has not taken Lasix in 1 month), PE and Cardiac cath 05/2018 (on eliquis) who presents to the ED for nausea, multiple episodes of nonbloody, nonbilious vomiting, and epigastric pain since yesterday. She has been unable to tolerate PO intake. Denies sick contact or recent travel. Denies any associated diarrhea. Denies any fevers or chills, cp, sob, or urinary complaints. Allergies: NKDA - Physicial Exam PE: 01/03/19 09:54 Adult Physical Exam Vitals: Triage vital signs reviewed General Appearance: No acute distress, well nourished, well developed Throat: Posterior oropharynx without erythema, mucous membranes moist Cardiac: Regular rate and rhythm, no murmurs, no rubs, no gallops Lungs: Clear to auscultation bilateral, good air movement bilaterally Abdomen: Soft, nondistended, normal bowel sounds (+) Right upper quadrant tenderness. Extremities: Full range of motion to all extremities, no cyanosis, clubbing, or edema Skin: Warm and dry, no rashes or lesions, no rash, no petechiae Neuro: AOX3; Cranial Nerves 2-12 grossly intact, Strength intact to all extremities, Sensation intact to all extremities, gait normal Psych: Normal mood, normal affect - Medical Decision Making 01/03/19 16:15 Persistent abdominal pain with nausea vomiting gallstones on ultrasound with no evidence of acute cholecystitis no comment on acute CBD dilatation no laboratory analysis suggestive of cholecystitis Given persistent pain a CAT scan was ordered Dr. Sibley to follow up CT and admit for intractable N/V
[2019-01-03] MEDS ORDERED: MORPHINE SULFATE 2 MG/ML VIAL ONE ×2 (10:40→16:35)
[2019-01-03 11:01] LABS: ALBUMIN 3.5 g/dl (3.4-5.0); ALK PHOS 81 U/L (45-117); ANION GAP 7 MMOL/L (8-16); BILIRUBIN,TOTAL 0.3 mg/dL (0.2-1); BLOOD UREA NITROGEN 21 mg/dL (7-18); CALCIUM 9.4 mg/dL (8.5-10.1); CHLORIDE 104 mmol/L (98-107); CO2 27 mmol/L (21-32); CREATININE 1.4 mg/dL (0.55-1.3); GLUCOSE,RANDOM 133 mg/dL (74-106); LIPASE 97 U/L (73-393); SGPT/ALT 34 U/L (13-61); SODIUM 138 mmol/L (136-145); TOT PROT 7.6 g/dl (6.4-8.2)
[2019-01-03 11:10] LABS: EPI CELLS 3.2 /HPF (0-5/HPF); HYALINE CASTS 0 /lpf (0-8); PH,URINE 8.5 (5.0-8.0); URINE APPEARANCE CLEAR; URINE BILIRUBIN NEGATIVE (NEGATIVE); URINE COLOR YELLOW; URINE GLUCOSE (UA) NEGATIVE (NEGATIVE); URINE KETONE NEGATIVE (NEGATIVE); URINE LEUK ESTERASE NEGATIVE (NEGATIVE); URINE NITRITE NEGATIVE (NEGATIVE); URINE PROTEIN 1+ (NEGATIVE); URINE RBC 1 /hpf (0-4); URINE WBC 1 /hpf (0-5)
[2019-01-03 11:24] LABS: MAGNESIUM 2.1 mg/dL (1.8-2.4); POTASSIUM 4.3 mmol/L (3.5-5.1); SGOT/AST 21 U/L (15-37)
--- NOTE | 2019-01-03 12:49 | EKG ---
Test Reason : Blood Pressure : / mmHG Vent. Rate : 086 BPM Atrial Rate : 086 BPM P-R Int : 174 ms QRS Dur : 096 ms QT Int : 362 ms P-R-T Axes : 048 -08 -29 degrees QTc Int : 433 ms NORMAL SINUS RHYTHM VOLTAGE CRITERIA FOR LEFT VENTRICULAR HYPERTROPHY NONSPECIFIC T WAVE ABNORMALITY ABNORMAL ECG WHEN COMPARED WITH ECG OF 17-MAY-2018 12:31, PREMATURE SUPRAVENTRICULAR COMPLEXES ARE NO LONGER PRESENT T WAVE INVERSION MORE EVIDENT IN INFERIOR LEADS INVERTED T WAVES HAVE REPLACED NONSPECIFIC T WAVE ABNORMALITY IN LATERAL LEADS Confirmed by GASPER JETT, HOLLI ([id number]) on 01/03/2019 12:49:05 PM Referred By: Confirmed By:HOLLI JACKMAN MD
[2019-01-03] MEDS ORDERED: MORPHINE SULFATE 8 MG/ML VIAL ONE (17:20)
[2019-01-03] MEDS ORDERED: SODIUM CHLORIDE 1,000 ML IV STA (18:36)
--- NOTE | 2019-01-03 19:24 | HP ---
CHIEF COMPLAINT: PCP: HISTORY OF PRESENT ILLNESS: Casey Greenwood is a 58 yr old F, PMH of GERD, chronic opiod use for left knee pain ( pending knee replacement), depression, HTN, CHF (last EF documented EF<15%, has not taken Lasix in 1 month), PE and Cardiac cath 05/2018 (on eliquis) who presents to the ED for nausea, multiple episodes of nonbloody, nonbilious vomiting, and epigastric pain since yesterday. pt unable to keep food down, denies any sick contacts, eating new foods. Last BM 2-3 days ago, pt takes senna for constipation pt with severe abd pain, due to cholelithiasis, will admit to tele, due to severe CHF, ER course was notable for: (1) CT Scan cholelithiasis (2) afebrile, no leukocystosis (3) BP elevated Recent Travel:Denies PAST MEDICAL HISTORY: GERD, chronic opiod use for left knee pain (pending knee replacement), depression, HTN, CHF (last EF documented EF<15%, has not taken Lasix in 1 month) , PE and Cardiac cath 05/2018 (on eliquis) PAST SURGICAL HISTORY: Social History: Smoking:unknown Alcohol:unknown Drugs: hx of substance abuse Family History: Allergies No Known Allergies Allergy (Verified 01/03/19 08:48) HOME MEDICATIONS: Home Medications Medication Instructions Recorded Carvedilol [Coreg] 25 mg PO BID 08/03/17 Cyclobenzaprine HCl 10 mg PO DAILY 08/04/17 Oxycodone HCl/Acetaminophen 1 each PO Q8H PRN MDD 3/day 08/04/17 [Oxycodone-Acetaminophen 10-325] Quetiapine Fumarate [Seroquel -] 200 mg PO HS 08/04/17 Venlafaxine HCl ER [Effexor Xr -] 75 mg PO TID 01/12/18 Zolpidem Tartrate [Ambien] 10 mg PO HS 01/12/18 Apixaban [Eliquis -] 5 mg PO BID 01/03/19 Furosemide [Lasix -] 40 mg PO BID 01/03/19 Gabapentin [Neurontin -] 400 mg PO Q8H 01/03/19 Lisinopril [Zestril] 2.5 mg PO DAILY 01/03/19 Ranitidine [Zantac -] 150 mg PO BID 01/03/19 Spironolactone [Aldactone] 25 mg PO DAILY 01/03/19 REVIEW OF SYSTEMS CONSTITUTIONAL: Absent: fever, chills, diaphoresis, generalized weakness, malaise, loss of appetite, weight change HEENT: Absent: rhinorrhea, nasal congestion, throat pain, throat swelling, difficulty swallowing, mouth swelling, ear pain, eye pain, visual changes CARDIOVASCULAR: Absent: chest pain, syncope, palpitations, irregular heart rate, lightheadedness , peripheral edema RESPIRATORY: Absent: cough, shortness of breath, dyspnea with exertion, orthopnea, wheezing, stridor, hemoptysis GASTROINTESTINAL:abd pain RUQ, +n/v, Absent:abdominal distension, diarrhea, constipation, melena, hematochezia GENITOURINARY: Absent: dysuria, frequency, urgency, hesitancy, hematuria, flank pain, genital pain MUSCULOSKELETAL: Absent: myalgia, arthralgia, joint swelling, back pain, neck pain SKIN: Absent: rash, itching, pallor HEMATOLOGIC/IMMUNOLOGIC: Absent: easy bleeding, easy bruising, lymphadenopathy, frequent infections ENDOCRINE: Absent: unexplained weight gain, unexplained weight loss, heat intolerance, cold intolerance NEUROLOGIC: Absent: headache, focal weakness or paresthesias, dizziness, unsteady gait, seizure, mental status changes, bladder or bowel incontinence PSYCHIATRIC: Absent: anxiety, depression, suicidal or homicidal ideation, hallucinations. PHYSICAL EXAMINATION Vital Signs - 24 hr 01/03/19 01/03/19 08:52 12:45 Temperature 99.3 F 98.9 F Pulse Rate 82 Pulse Rate [ 90 Right] Respiratory 24 H 18 Rate Blood Pressure 187/102 H Blood Pressure 179/91 H [Right Arm] O2 Sat by Pulse 97 98 Oximetry (%) GENERAL: Awake, alert, and fully oriented, in no acute distress. HEAD: Normal with no signs of trauma. EYES: Pupils equal, round and reactive to light, extraocular movements intact, sclera anicteric, conjunctiva clear. No lid lag. EARS, NOSE, THROAT: Ears normal, nares patent, oropharynx clear without exudates. Moist mucous membranes. NECK: Normal range of motion, supple without lymphadenopathy, JVD, or masses. LUNGS: Breath sounds equal, clear to auscultation bilaterally. No wheezes, and no crackles. No accessory muscle use. HEART: Regular rate and rhythm, normal S1 and S2 without murmur, rub or gallop. ABDOMEN: Soft, nontender, not distended, normoactive bowel sounds, no guarding, no rebound, no masses. No hepatomegaly or splenomegaly. MUSCULOSKELETAL: Normal range of motion at all joints. No bony deformities or tenderness. No CVA tenderness. UPPER EXTREMITIES: 2+ pulses, warm, well-perfused. No cyanosis. No clubbing. No peripheral edema. LOWER EXTREMITIES: 2+ pulses, warm, well-perfused. No calf tenderness. No peripheral edema. NEUROLOGICAL: Cranial nerves II-XII intact. Normal speech. Normal gait. PSYCHIATRIC: Cooperative. Good eye contact. Appropriate mood and affect. SKIN: Warm, dry, normal turgor, no rashes or lesions noted, normal capillary refill. Laboratory Results - last 24 hr 01/03/19 01/03/19 01/03/19 09:34 09:34 10:50 WBC 7.5 RBC 3.72 Hgb 9.6 L Hct 30.5 L MCV 81.9 MCH 25.8 MCHC 31.4 L RDW 13.9 Plt Count 400 MPV 7.8 Absolute Neuts (auto) 6.4 Neutrophils % 84.9 H D Lymphocytes % 9.9 D Monocytes % 4.4 Eosinophils % 0.5 D Basophils % 0.3 Nucleated RBC % 0 Sodium 138 Potassium 4.3 Chloride 104 Carbon Dioxide 27 Anion Gap 7 L BUN 21 H Creatinine 1.4 H Est GFR (CKD-EPI)AfAm 47.55 Est GFR (CKD-EPI)NonAf 41.02 Random Glucose 133 H Calcium 9.4 Phosphorus 3.0 Magnesium 2.1 Total Bilirubin 0.3 AST 21 ALT 34 Alkaline Phosphatase 81 Creatine Kinase 292 H Creatine Kinase Index 0.8 CK-MB (CK-2) 2.4 Troponin I < 0.02 B-Natriuretic Peptide 598.0 H Total Protein 7.6 Albumin 3.5 Lipase 97 Urine Color Yellow Urine Appearance Clear Urine pH 8.5 H D Ur Specific [place] 1.023 Urine Protein 1+ H Urine Glucose (UA) Negative Urine Ketones Negative Urine Blood Negative Urine Nitrite Negative Urine Bilirubin Negative Urine Urobilinogen 1.0 Ur Leukocyte Esterase Negative Urine WBC (Auto) 1 Urine RBC (Auto) 1 Urine Casts (Auto) 0 U Epithel Cells (Auto) 3.2 Urine Bacteria (Auto) 52.0 ASSESSMENT/PLAN: Casey Greenwood is a 58 yr old F, medical condition GERD, chronic opiod use for left knee pain (pending knee replacement), depression, HTN, CHF (last EF documented EF<15%, has not taken Lasix in 1 month), PE and Cardiac cath 05/2018 (on eliquis ) admitted for Admitting Diagnosis Acute cholelithiasis Chronic Problems GERD Chronic opiod use Depression HTN CHF PE A/P: #Acute Cholelithiasis -NPO -pain mgt-will c/w Morphine -antiemetics -Surgery consult (Dr. Mamie bernal in ED) -IVF -monitor for Fluid overload -cardio consult #HTN #CHF, chronic systolic -EF <15% -tele monitoring -BNP 598- no clinical signs of fluid overload -Echo in AM -Cardio consult - Dr. 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 -IVF -diuretics on hold #PE -eliquis on hold -discussed w/ Cardio-heparin drip started #GERD -on PPI #Depression, chronic -on seroquel, effexor -no SI/HI #Insomnia -ambien 10mg QHS #Chronic knee pain -pt on percocet at home -ambulates with cane -pt reports she needs a knee replacement #Constipation, 2/2 chronic opiod use -pt reports BM every 3 days -senna qhs Dispo: requires inpatient treatment FEN: Fluid IVF Electrolytes- replete accordingly Nutrition IVF, NPO Full Code Visit type - Emergency Visit Emergency Visit: Yes ED Registration Date: 01/03/19 Care time: The patient presented to the Emergency Department on the above date and was hospitalized for further evaluation of their emergent condition. - New Patient This patient is new to me today: Yes Date on this admission: 01/03/19 - Critical Care Critical Care patient: No
[2019-01-03] MEDS ORDERED: PATIENT'S OWN MEDICATION (NON-FORMULARY) (Oxycodone Hcl/Acetaminophen [Oxycodone-Acetamino PO PRN ×2 (20:28→20:53)
--- NOTE | 2019-01-03 20:39 | CONSULT ---
Consult Consult Specialty:: General Surgery Referred by:: Tej Retana Reason for Consultation:: N/V, upper abdominal pain - History of Present Illness Chief Complaint: N/V, epigastric pain; knee pain, difficulty ambulating History of Present Illness: 58yo morbidly obese F with multiple medical problems, including HTN, CHF, GERD, DM2, severe L knee arthritis, chronic pain on opioids, PE (05/24) on Eliquis, presented to ER with 2 days of N/V associated with epigastric pain, inability to tolerate po, no F/C, no change in bowel pattern (last soft BM 2d ago, prior to illness). For 3-4 days prior to this, she had increasingly severe left knee pain, limiting her usual ability to walk with cane, to the point she could "barely get up or get around," and she had called her pain management doctor ( [place] at [facility]) and orthopedist (Dr. David Jarvis), but was still waiting for callbacks. Then 2 nights ago, she had a little cereal with low-fat milk, a piece of fried chicken and some pork and beans, and later that night started having nausea and vomiting. Upper abdominal pain accompanied the vomiting, and settled into the epigastric area as the most painful. She also describes a history of heartburn. She last took all her meds yesterday morning (including Eliquis), but has been unable to tolerate most po since. She notes she had stopped using Flexeril for her knee for about a month, but resumed a few days before this illness. She is awaiting left knee replacement, once she can be off the Eliquis. She had cardiac cath 05/24 with NO stents, and was due for an echo tomorrow; her punching machine operator is Dr. Omid Haney. PMD is Dr. Anuja Elias, but she was planning on changing to Sharon Harry at [facility] (had not seen her yet). She states she was told years ago by a doctor that she no longer needed any meds for diabetes. She has never had an EGD or colonoscopy and denies previous surgeries. In the ER, she has a normal wbc, temp 99.3, BUN/Cr 21/1.4 (little above lowest baseline Cr 1.2), BNP <600, urine spec grav 1.023/UA negative, LFTs and lipase normal, and CXR without signs of fluid overload. US showed multiple gallstones without signs of cholecystitis or ductal dilation. Noncontrast CT then showed overdistended gallbladder with multiple stones, no obstruction or inflammatory process, no free air or fluid, small to moderate hiatal hernia, moderate to marked stool in proximal colon. She had multiple doses of Zofran and morphine, and emesis has stopped, but she still has pain and tenderness. Surgery was asked to assess. She is to be admitted for observation to medicine. She is seen and examined in ER holding, with sister present. She is a poor to fair historian. She complains more of knee pain than abdominal pain, and admits that abd pain is less than earlier, but states it still hurts when pushed on. She relates the above history, though thought her PE was diagnosed in August. [facility] review confirms May 2018 diagnosis and transfer for cath at that time. She had similar vomiting about a year ago, and was diagnosed at another hospital with opioid withdrawal, at which time she had been off her pain meds for a little while. She usually takes about 3 Percocet 10/325 a day. - History Source History Provided By: Patient, Family Member (sister at bedside), Medical Record Limitations to Obtaining History: Poor Historian - Past Medical History Cardio/Vascular: Yes: CHF, HTN. No: Deep Vein Thrombosis (pt denies) Pulmonary: Yes: Pulmonary Embolus (May 2018 - on Eliquis) Gastrointestinal: Yes: Constipation, GERD Renal/: Yes: Renal Inusuff Reproductive: Yes: Postmenopausal ...LMP: 09/23/13 Psych: Yes: Depression, Other (chronic opioid use) Musculoskeletal: Yes: Chronic low back pain, Osteoarthritis (left knee pain requiring replacement) Endocrine: Yes: Diabetes Mellitus ("they told me I have it, but don't need meds anymore") - Past Surgical History Past Surgical History: Yes: None Additional Surgical History: cardiac cath 05/24 - NO stents - Alcohol/Substance Use Hx Alcohol Use: Yes (rarely) History of Substance Use: reports: Prescription (chronic use Percocet, under care of pain management doctors) - Smoking History Smoking history: Never smoked (smoked transiently when younger) Have you smoked in the past 12 months: No - Social History ADL: Independent (usually) Home Medications - Allergies Allergies/Adverse Reactions: Allergies Allergy/AdvReac Type Severity Reaction Status Date / Time No Known Allergies Allergy Verified 01/03/19 08:48 - Home Medications Home Medications: Ambulatory Orders Carvedilol [Coreg] 25 mg PO BID 08/03/17 Cyclobenzaprine HCl 10 mg PO DAILY 08/04/17 Oxycodone HCl/Acetaminophen [Oxycodone-Acetaminophen 10-325] 1 each PO Q8H PRN MDD 3/day 08/04/17 Quetiapine Fumarate [Seroquel -] 200 mg PO HS 08/04/17 Venlafaxine HCl ER [Effexor Xr -] 75 mg PO TID 01/12/18 Zolpidem Tartrate [Ambien] 10 mg PO HS 01/12/18 Apixaban [Eliquis -] 5 mg PO BID 01/03/19 Furosemide [Lasix -] 40 mg PO BID 01/03/19 Gabapentin [Neurontin -] 400 mg PO Q8H 01/03/19 Lisinopril [Zestril] 2.5 mg PO DAILY 01/03/19 Ranitidine [Zantac -] 150 mg PO BID 01/03/19 Spironolactone [Aldactone] 25 mg PO DAILY 01/03/19 Home Medications (free text): had not taken FLEXERIL in about a month, but resumed a few days before current illness. took all home meds YESTERDAY morning (529 am) last, including Eliquis Family Disease History - Family Disease History Family Disease History: Heart Disease: Father, Mother (emphysema/smoker, HTN, MIs), Brother ([place] last month at 49), Other: Mother Other Family History: no cancer Review of Systems - Review of Systems Constitutional: reports: Loss of Appetite (not able to tolerate po with N/V). denies: Chills, Fever Eyes: reports: Other (uses reading glasses). denies: Recent Change in Vision HENT: denies: Difficult Swallowing, Nasal Congestion, Throat Pain Neck: denies: Swollen Glands, Tenderness Cardiovascular: reports: Palpitations (sometimes, when I get anxious). denies: Chest Pain Respiratory: denies: Cough, SOB Gastrointestinal: reports: Abdominal Pain (with hpi), Constipation (chronic, uses senna, goes q2-3 days), Diarrhea (about a week ago), Indigestion (I do have heartburn), Nausea (with hpi), Vomiting (with hpi) Genitourinary: denies: Burning, Dysuria Musculoskeletal: reports: Back Pain (chronic, low), Extremity Pain (sometimes pain all the way up left leg), Joint Pain (left knee very bad), Other (walks with cane) Integumentary: denies: Change in Color, Rash Neurological: reports: Numbness (in fingers), Tremors (in hands), Unsteady Gait (had severe pain in knees so bad she could barely walk even with cane for few days prior to this illness). denies: Dizziness, Headache Physical Exam Vital Signs: Vital Signs Temperature 98.5 F 01/03/19 20:09 Pulse Rate 84 01/03/19 20:09 Respiratory Rate 18 01/03/19 20:09 Blood Pressure 141/75 01/03/19 20:09 O2 Sat by Pulse Oximetry (%) 95 01/03/19 20:09 Constitutional: Yes: No Distress, Calm, Obese Eyes: Yes: Conjunctiva Clear, EOM Intact HENT: Yes: Atraumatic, Normocephalic Neck: Yes: Supple, Trachea Midline Cardiovascular: Yes: Regular Rate and Rhythm, Murmur (soft systolic) Respiratory: Yes: Regular, CTA Bilaterally Gastrointestinal: Yes: Normal Bowel Sounds, Soft, Abdomen, Obese, Tenderness ( RUQ), Tenderness, Epigastrium. No: Tenderness, Rebound (no godwin/guarding) ...Rectal Exam: Yes: Deferred Renal/: No: CVA Tenderness - Left, CVA Tenderness - Right Musculoskeletal: Yes: Back Pain (tender over lumbar spine). No: Joint Swelling Extremities: No: Cool, Cyanosis Edema: Yes Edema: LLE: Trace, RLE: Trace Peripheral Pulses WNL: Yes Integumentary: No: Jaundice, Rash Neurological: Yes: Alert, Oriented Psychiatric: Yes: Alert, Oriented Labs: CBC, BMP 01/03/19 09:34 01/03/19 09:34 CMP Sodium 138 mmol/L (136-145) 01/03/19 09:34 Potassium 4.3 mmol/L (3.5-5.1) 01/03/19 09:34 Chloride 104 mmol/L (98-107) 01/03/19 09:34 Carbon Dioxide 27 mmol/L (21-32) 01/03/19 09:34 Anion Gap 7 MMOL/L (8-16) L 01/03/19 09:34 BUN 21 mg/dL (7-18) H 01/03/19 09:34 Creatinine 1.4 mg/dL (0.55-1.3) H 01/03/19 09:34 Est GFR (CKD-EPI)AfAm 47.55 01/03/19 09:34 Est GFR (CKD-EPI)NonAf 41.02 01/03/19 09:34 Random Glucose 133 mg/dL (74-106) H 01/03/19 09:34 Calcium 9.4 mg/dL (8.5-10.1) 01/03/19 09:34 Phosphorus 3.0 mg/dL (2.5-4.9) 01/03/19 09:34 Magnesium 2.1 mg/dL (1.8-2.4) 01/03/19 09:34 Total Bilirubin 0.3 mg/dL (0.2-1) 01/03/19 09:34 AST 21 U/L (15-37) 01/03/19 09:34 ALT 34 U/L (13-61) 01/03/19 09:34 Alkaline Phosphatase 81 U/L (45-117) 01/03/19 09:34 Creatine Kinase 292 U/L (26-192) H 01/03/19 09:34 Creatine Kinase Index 0.8 % (0.0-5.0) 01/03/19 09:34 CK-MB (CK-2) 2.4 ng/mL (0.5-3.6) 01/03/19 09:34 Troponin I < 0.02 ng/ml (0.00-0.05) 01/03/19 09:34 B-Natriuretic Peptide 598.0 pg/ml (5-125) H 01/03/19 09:34 Total Protein 7.6 g/dl (6.4-8.2) 01/03/19 09:34 Albumin 3.5 g/dl (3.4-5.0) 01/03/19 09:34 Lipase 97 U/L (73-393) 01/03/19 09:34 Urine Test Results Urine Color Yellow 01/03/19 10:50 Urine Appearance Clear 01/03/19 10:50 Urine pH 8.5 (5.0-8.0) H D 01/03/19 10:50 Ur Specific [place] 1.023 (1.010-1.035) 01/03/19 10:50 Urine Protein 1+ (NEGATIVE) H 01/03/19 10:50 Urine Glucose (UA) Negative (NEGATIVE) 01/03/19 10:50 Urine Ketones Negative (NEGATIVE) 01/03/19 10:50 Urine Blood Negative (NEGATIVE) 01/03/19 10:50 Urine Nitrite Negative (NEGATIVE) 01/03/19 10:50 Urine Bilirubin Negative (NEGATIVE) 01/03/19 10:50 Ur Leukocyte Esterase Negative (NEGATIVE) 01/03/19 10:50 Imaging - Results Cat Scan: Report Reviewed, Image Reviewed (images reviewed - no obstruction, ++ stool in proximal colon, no free air or fluid, elongated gallbladder with multiple large stones visible, + hiatal hernia) Ultrasound: Report Reviewed, Image Reviewed (images reviewed - gallbladder is over 13cm long, contains multiple stones, many >2cm dimension; no signs cholecystitis, no ductal dilation) Problem List - Problems (1) Calculus of gallbladder without cholecystitis without obstruction Assessment/Plan: admitted to medicine NPO except meds, would hold diuretics IV hydration - relatively dry with no signs of fluid overload check lactate trend labs given overdistended gallbladder with large stones, pain could be secondary to biliary colic also could be related to emesis itself, mild narcotic withdrawal (pt last took meds yesterday morning), constipation, diabetic motility issues? no clear signs of infectious process pain is improved after multiple doses of morphine and zofran in ER starch mangle tender epigastric and RUQ no vomiting since earlier this morning will reassess tomorrow given recent PE on Eliquis and other medical issues, would not alvarez to consider cholecystectomy when able to resume po, would order low-fat diet discussed with Tiffanie Dumont NP Code(s): K80.20 - CALCULUS OF GALLBLADDER W/O CHOLECYSTITIS W/O OBSTRUCTION (2) Epigastric pain Code(s): R10.13 - EPIGASTRIC PAIN (3) Nausea & vomiting Code(s): R11.2 - NAUSEA WITH VOMITING, UNSPECIFIED Qualifiers: Vomiting type: unspecified Vomiting Intractability: non-intractable Qualified Code(s): R11.2 - Nausea with vomiting, unspecified (4) History of pulmonary embolism Assessment/Plan: from May 2018 Code(s): Z86.711 - PERSONAL HISTORY OF PULMONARY EMBOLISM (5) Anticoagulant long-term use Assessment/Plan: last Eliquis am 01/02 ? if needs heparin bridging at 7 months after PE diagnosis cardiology to see consider hematology Code(s): Z79.01 - UNDER SEAL OPERATOR (CURRENT) USE OF ANTICOAGULANTS (6) Chronic systolic CHF (congestive heart failure), NYHA class 3 Assessment/Plan: cardiology consulted echo in am continue meds except diuretics for now Code(s): I50.22 - CHRONIC SYSTOLIC (CONGESTIVE) HEART FAILURE (7) Arthritis of left knee Code(s): M17.12 - UNILATERAL PRIMARY OSTEOARTHRITIS, LEFT KNEE (8) Chronic pain Code(s): G89.29 - OTHER CHRONIC PAIN Qualifiers: Chronic pain type: chronic pain syndrome Qualified Code(s): G89.4 - Chronic pain syndrome (9) DM2 (diabetes mellitus, type 2) Assessment/Plan: check A1C Code(s): E11.9 - TYPE 2 DIABETES MELLITUS WITHOUT COMPLICATIONS Qualifiers: Diabetes mellitus termite control 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 insulin use: without shelter use Diabetes mellitus complication status: without complication Qualified Code(s): E11.9 - Type 2 diabetes mellitus without complications (10) Essential hypertension Code(s): I10 - ESSENTIAL (PRIMARY) HYPERTENSION (11) GERD (gastroesophageal reflux disease) Assessment/Plan: cont home med Code(s): K21.9 - GASTRO-ESOPHAGEAL REFLUX DISEASE WITHOUT ESOPHAGITIS Qualifiers: Esophagitis presence: without esophagitis Qualified Code(s): K21.9 - Gastro -esophageal reflux disease without esophagitis (12) Morbid obesity Code(s): E66.01 - MORBID (SEVERE) OBESITY DUE TO EXCESS CALORIES (13) Drug induced constipation Assessment/Plan: would continue senna/motility agent routinely Code(s): K59.03 - DRUG INDUCED CONSTIPATION
[2019-01-03] MEDS ORDERED: SPIRONOLACTONE 25 MG TABLET (FP) PO SCH (20:45)
[2019-01-03] MEDS: ONDANSETRON 4 MG/2 ML VIAL IVPUSH PRN (21:27)
[2019-01-03] MEDS: SODIUM CHLORIDE 1,000 ML IV SCH (21:27)
[2019-01-03] MEDS: GABAPENTIN 400 MG CAPSULE (FP) PO SCH (22:25)
[2019-01-03] MEDS: CARVEDILOL 25 MG TABLET (FP) PO SCH (22:25)
[2019-01-03] MEDS: VENLAFAXINE HCL 75 MG TABLET PO SCH (22:25)
[2019-01-03] MEDS: RANITIDINE HCL 150 MG TABLET (FP) PO SCH (22:25)
[2019-01-03] MEDS: QUEtiapine FUMARATE 100 MG TABLET (FP) PO SCH (22:26)
[2019-01-03] MEDS: oxyCODONE HCL 5 MG TABLET PO PRN (22:26)
[2019-01-03] MEDS: ZOLPIDEM TARTRATE 5 MG TABLET PO PRN (22:26)
[2019-01-03] MEDS: ACETAMINOPHEN 325 MG TABLET (FP) PO PRN (22:27)
[2019-01-03] MEDS ORDERED: HEPARIN NA (PORCINE) 5,000 UNITS/ML 1ML VIAL IVPUSH ONE (22:40)
[2019-01-03] MEDS ORDERED: HEPARIN NA (PORCINE) 5,000 UNITS/ML 1ML VIAL IVPUSH PRN ×2 (22:53)
[2019-01-03] MEDS: HEPARIN INFUSION - 25,000 UNITS/500 ML INFUS.BAG IVPB SCH (23:44)
[2019-01-04] MEDS ORDERED: PT OWN MED DRAWER 7, Y5N ONE ×4 (05:48→21:05)
[2019-01-04] MEDS: ONDANSETRON 4 MG/2 ML VIAL IVPUSH PRN (05:51)
[2019-01-04] MEDS: oxyCODONE HCL 5 MG TABLET PO PRN ×2 (06:25→16:12)
[2019-01-04] MEDS: VENLAFAXINE HCL 75 MG TABLET PO SCH ×3 (06:25→21:47)
[2019-01-04] MEDS: GABAPENTIN 400 MG CAPSULE (FP) PO SCH ×3 (06:25→21:47)
[2019-01-04] MEDS: ACETAMINOPHEN 325 MG TABLET (FP) PO PRN ×2 (06:26→16:13)
[2019-01-04 06:39] LABS: HEMATOCRIT 28.4 % (32.4-45.2); HEMOGLOBIN 9.1 GM/dL (10.7-15.3); MCH 26.3 pg (25.7-33.7); MCHC 31.9 g/dl (32.0-36.0); MEAN CELL VOLUME 82.4 fl (80-96); MEAN PLT VOLUME 7.8 fl (7.5-11.1); PLATELET COUNT 376 K/MM3 (134-434); RBC 3.45 M/mm3 (3.60-5.2); RDW 14.4 % (11.6-15.6); WHITE BLOOD COUNT 8.1 K/mm3 (4.0-10.0)
[2019-01-04 06:46] LABS: INR 1.21 (0.83-1.09); PROTHROMBIN TIME (PATIENT) 14.3 SEC (9.7-13.0)
[2019-01-04 08:07] LABS: ACTIVATED PTT 79.3 SECONDS (25.2-36.5)
[2019-01-04 09:04] LABS: ALBUMIN 3.4 g/dl (3.4-5.0); BILIRUBIN,TOTAL 0.5 mg/dL (0.2-1); CALCIUM 9.1 mg/dL (8.5-10.1); CREATININE 1.3 mg/dL (0.55-1.3); POTASSIUM 3.5 mmol/L (3.5-5.1); TOT PROT 7.2 g/dl (6.4-8.2)
--- NOTE | 2019-01-04 09:34 | CON.CARD ---
Consult Consult Specialty:: Cardiology Referred by:: Dr. Rodriguez Reason for Consultation:: CHF hx - History of Present Illness Chief Complaint: nausea History of Present Illness: The patient is a 57YOF with a PMH of GERD, chronic opiod use for left knee pain (pending knee replacement), depression, HTN, CHF (last EF documented EF<15%, has not taken Lasix in 1 month), PE and Cardiac cath 05/2018 (on eliquis) who presents to the ED for nausea, multiple episodes of nonbloody, nonbilious vomiting, and epigastric pain since yesterday. She has been unable to tolerate PO intake. Denies sick contact or recent travel. Denies any associated diarrhea. Denies any fevers or chills, cp, sob, or urinary complaints. CT showed gallbladder findings, was seen by surgery. For now, being observed with no plan for immediate surgery. Denies CP, SOB, palps. No edema. No syncope Of note, had cath for new severe systolic dysf in 05/2018 showing non-obsxt disease - History Source History Provided By: Patient - Past Medical History Cardio/Vascular: Yes: CHF, HTN. No: Deep Vein Thrombosis (pt denies) Pulmonary: Yes: Pulmonary Embolus (May 2018 - on Eliquis) Gastrointestinal: Yes: Constipation, GERD Renal/: Yes: Renal Inusuff ...LMP: 09/23/13 ...: No Psych: Yes: Depression, Other (chronic opioid use) Musculoskeletal: Yes: Chronic low back pain, Osteoarthritis (left knee pain requiring replacement) Endocrine: Yes: Diabetes Mellitus ("they told me I have it, but don't need meds anymore") - Past Surgical History Past Surgical History: Yes: None Additional Surgical History: cardiac cath 05/24 - NO stents - Alcohol/Substance Use Hx Alcohol Use: Yes (rarely) History of Substance Use: reports: Prescription (chronic use Percocet, under care of pain management doctors) - Smoking History Smoking history: Never smoked (smoked transiently when younger) Have you smoked in the past 12 months: No - Social History ADL: Independent (usually) Home Medications - Allergies Allergies/Adverse Reactions: Allergies Allergy/AdvReac Type Severity Reaction Status Date / Time No Known Allergies Allergy Verified 01/03/19 08:48 - Home Medications Home Medications: Ambulatory Orders Carvedilol [Coreg] 25 mg PO BID 08/03/17 Cyclobenzaprine HCl 10 mg PO DAILY 08/04/17 Oxycodone HCl/Acetaminophen [Oxycodone-Acetaminophen 10-325] 1 each PO Q8H PRN MDD 3/day 08/04/17 Quetiapine Fumarate [Seroquel -] 200 mg PO HS 08/04/17 Venlafaxine HCl ER [Effexor Xr -] 75 mg PO TID 01/12/18 Zolpidem Tartrate [Ambien] 10 mg PO HS 01/12/18 Apixaban [Eliquis -] 5 mg PO BID 01/03/19 Furosemide [Lasix -] 40 mg PO BID 01/03/19 Gabapentin [Neurontin -] 400 mg PO Q8H 01/03/19 Lisinopril [Zestril] 2.5 mg PO DAILY 01/03/19 Ranitidine [Zantac -] 150 mg PO BID 01/03/19 Spironolactone [Aldactone] 25 mg PO DAILY 01/03/19 Family Disease History - Family Disease History Family Disease History: Heart Disease: Father, Mother (emphysema/smoker, HTN, MIs), Brother ([place] last month at 49), Other: Mother Other Family History: no cancer Review of Systems - Review of Systems Constitutional: reports: No Symptoms Neck: reports: No Symptoms Gastrointestinal: reports: Abdominal Pain, Nausea Genitourinary: denies: No Symptoms, Burning, Discharge, Dysuria, Flank Pain, Frequency, Hematuria, Incontinence, Lesions, Menses, Pain, Testicular Mass, Testicular Pain, Testicular Swelling, Urgency, Vaginal Bleeding, Other Breasts: denies: No Symptoms Reported, See HPI, Breast Implants, Discharge from Nipple, Lumps, Pain, Skin Changes, Other Musculoskeletal: denies: No Symptoms, Back Pain, Crepitus, Decreased ROM, Extremity Pain, Joint Pain, Joint Swelling, Muscle Pain, Muscle Cramps, Muscle Weakness, Other Integumentary: denies: No Symptoms, Blister, Bruising, Change in Color, Eczema, Erythema, Incision, Lesions, Lump, Pallor, Pruritis, Rash, Wound, Other Neurological: denies: No Symptoms, Change in LOC, Change in Speech, Confusion, Dizziness, Headache, Incoordination, Numbness, Parasthesia, Pre-Existing Deficit , Seizure, Syncope, Tremors, Unsteady Gait, Weakness, Other Endocrine: denies: No Symptoms, Excessive Sweating, Flushing, Increased Hunger, Increased Thirst, Intolerance to Cold, Intolerance to Heat, Unexplained Weight Gain, Unexplained Weight Loss, Other Hematology/Lymphatic: denies: No Symptoms, Easily Bruised, Excessive Bleeding, Swollen Glands, Other - Risk Factors Known Risk Factors: Yes: Hypertension Vital Signs: Vital Signs Temperature 98.9 F 01/04/19 07:44 Pulse Rate 84 01/04/19 07:44 Respiratory Rate 20 01/04/19 07:44 Blood Pressure 143/90 01/04/19 07:44 O2 Sat by Pulse Oximetry (%) 97 01/03/19 20:45 Constitutional: Yes: No Distress Eyes: Yes: Conjunctiva Clear Respiratory: Yes: CTA Bilaterally Gastrointestinal: Yes: Soft, Abdomen, Obese JVD: No Carotid Bruit: No Heart Sounds: Yes: S1, S2 Edema: No Neurological: Yes: Alert - Other Data Labs, Other Data: CBC, BMP 01/04/19 05:30 01/04/19 06:01 INR, PTT INR 1.21 (0.83-1.09) H 01/04/19 05:30 Troponin, BNP 01/03/19 09:34 Troponin I < 0.02 B-Natriuretic Peptide 598.0 H Troponin, BNP 01/03/19 09:34 Troponin I < 0.02 B-Natriuretic Peptide 598.0 H Laboratory Tests 01/04/19 05:30 PTT (Actin FS) 79.3 H Echo: Pending Prior Cardiac Procedures: Cardiac Catheterization Imaging - Results EKG: Image Reviewed (NSR 86, LVH, NSST cahnges) Assessment/Plan IMP: 1. Cholelithiasis, biliary colic 2. Non-ischemic CM 3. History of pulmonary embolism 4. HTN 5. Morbid obesity REC: 1. On heparin gtts in case requires surgical procedure. If no surgery planned, can switch back to Eliquis. 2. Cont usual meds for CHF including BB and ROMI-I. Hold Lasix while vairable PO intake. 3. Plan for repeat echo to assess LV fx 4. Surgery following.
[2019-01-04] MEDS: CYCLOBENZAPRINE HCL 10 MG TABLET (FP) PO SCH (10:26)
[2019-01-04] MEDS: CARVEDILOL 25 MG TABLET (FP) PO SCH ×2 (10:26→21:47)
[2019-01-04] MEDS: RANITIDINE HCL 150 MG TABLET (FP) PO SCH ×2 (10:26→21:47)
[2019-01-04] MEDS: SODIUM CHLORIDE 1,000 ML IV SCH (10:27)
--- NOTE | 2019-01-04 11:15 | ECHO ---
Name: CHARLIE URIAS Exam:Adult Echocardiogram Study Date: 01/04/2019 08:59 AM Age: 58 yrs Reason For Study: CHF Height: 66 in Weight: 260 lb BSA: 2.2 m2 MMode/2D Measurements & Calculations IVSd: 0.93 cm Ao root diam: 2.9 cm LVIDd: 5.8 cm LA dimension: 3.4 cm LVIDs: 4.7 cm LVPWd: 0.96 cm EDV(Teich): 163.6 ml LVOT diam: 2.4 cm ESV(Teich): 103.4 ml Doppler Measurements & Calculations MV E max jv: 39.0 cm/sec Med Peak E' Jv: 3.5 cm/sec MV A max jv: 62.7 cm/sec Med E/e': 11.1 MV E/A: 0.62 Lat Peak E' Jv: 3.9 cm/sec MV dec time: 0.30 sec Lat E/e': 9.9 Left Ventricle There is mild concentric left ventricular hypertrophy. Ejection Fraction = 30-35%. There is severe gl obal hypokinesis of the left ventricle. Right Ventricle The right ventricle is normal in size and function. Atria Normal left and right atrial size and function. Mitral Valve There is mild mitral valve thickening. There is no mitral valve stenosis. There is mild mitral regurg itation. Tricuspid Valve The tricuspid valve is not well visualized, but is grossly normal. Aortic Valve The aortic valve opens well. No hemodynamically significant valvular aortic stenosis. Pulmonic Valve The pulmonic valve is not well seen, but is grossly normal. There is no pulmonic valvular stenosis. Great Vessels The aortic root is normal size. Pericardium/Pleura There is no pericardial effusion. Interpretation Summary There is mild concentric left ventricular hypertrophy. Ejection Fraction = 30-35%. There is severe global hypokinesis of the left ventricle. There is mild mitral valve thickening. There is mild mitral regurgitation. There is no pericardial effusion. MD Melissa *Gena 01/04/2019 11:15 AM
--- NOTE | 2019-01-04 12:54 | PN ---
Progress Note, Physician Chief Complaint: shortness of breath History of Present Illness: Patient is a 58 year old female with a significant past medical history of GERD , chronic opiod use for left knee pain (pending knee replacement), depression, HTN, CHF (last EF documented EF<15%), PE and Cardiac cath 05/2018 (on eliquis). She presents to the ED on 01/04/2019 with nausea, multiple episodes of nonbloody, nonbilious vomiting, and epigastric pain x 1 day. pt unable to keep food down, denies any sick contacts, eating new foods. Last BM 2-3 days ago, pt takes senna for constipation. On admission, patient had severe abdominal pain and was admitted to telemetry due to sever CHF. - Current Medication List Current Medications: Active Medications Acetaminophen (Tylenol -) 325 mg PO Q8H PRN PRN Reason: PAIN LEVEL 6-10 Last Admin: 01/04/19 06:26 Dose: 325 mg Carvedilol (Coreg -) 25 mg PO BID [facility] Last Admin: 01/04/19 10:26 Dose: 25 mg Cyclobenzaprine HCl (Flexeril -) 10 mg PO DAILY [facility] Last Admin: 01/04/19 10:26 Dose: 10 mg Gabapentin (Neurontin -) 400 mg PO TID [facility] Last Admin: 01/04/19 06:25 Dose: 400 mg Heparin Sodium (Porcine) (Heparin -) 5,000 unit IVPUSH PRN PRN PRN Reason: APTT Heparin Sodium (Porcine) (Heparin -) 1,000 unit IVPUSH PRN PRN PRN Reason: APTT Sodium Chloride (Normal Saline -) 1,000 mls @ 50 mls/hr IV ASDIR EMILI Stop: 01/04/19 19:14 Last Admin: 01/04/19 10:27 Dose: 50 mls/hr Heparin Sodium/Dextrose (Heparin Infusion -) 25,000 units in 500 mls @ 20 mls/ hr IVPB TITR [facility]; Protocol Last Titration: 01/04/19 08:54 Dose: 950 units/hr, 19 mls/hr Ondansetron HCl (Zofran Injection) 4 mg IVPUSH Q6H PRN PRN Reason: NAUSEA Last Admin: 01/04/19 05:51 Dose: 4 mg Oxycodone HCl (Roxicodone -) 10 mg PO Q8H PRN PRN Reason: PAIN LEVEL 6-10 Last Admin: 01/04/19 06:25 Dose: 10 mg Quetiapine Fumarate (Seroquel -) 200 mg PO HS [facility] Last Admin: 01/03/19 22:26 Dose: 200 mg Ranitidine HCl (Zantac -) 150 mg PO BID [facility] Last Admin: 01/04/19 10:26 Dose: 150 mg Venlafaxine HCl (Effexor -) 75 mg PO TID [facility] Last Admin: 01/04/19 06:25 Dose: 75 mg Zolpidem Tartrate (Ambien -) 10 mg PO HS PRN PRN Reason: INSOMNIA Last Admin: 01/03/19 22:26 Dose: 10 mg - Objective Vital Signs: Vital Signs Temperature 98.6 F 01/04/19 10:25 Pulse Rate 74 01/04/19 10:25 Respiratory Rate 19 01/04/19 10:25 Blood Pressure 147/77 01/04/19 10:25 O2 Sat by Pulse Oximetry (%) 97 01/04/19 09:00 Labs: CBC, BMP 01/04/19 05:30 01/04/19 06:01 INR, PTT INR 1.21 (0.83-1.09) H 01/04/19 05:30 Problem List - Problems (1) Chronic systolic CHF (congestive heart failure), NYHA class 3 Assessment/Plan: Patient with history of systolic Chf with EF 30%. Monitor on tele, monitor intake and output. currently without symptoms of volume overload. On lasix, coreq history of cardiac cath 2018 without stents. Code(s): I50.22 - CHRONIC SYSTOLIC (CONGESTIVE) HEART FAILURE (2) Epigastric pain Assessment/Plan: Acute Cholelithiasis. On clears, advance as tolerated pain management with bowel regimen zofran prn Surgery following Code(s): R10.13 - EPIGASTRIC PAIN (3) Gall stones Code(s): K80.20 - CALCULUS OF GALLBLADDER W/O CHOLECYSTITIS W/O OBSTRUCTION (4) History of pulmonary embolism Assessment/Plan: Eliquis on hold, on heparin drip aptt therapeutic. Stop heparin drip and transition to eliquis once no invasive procedures scheduled Code(s): Z86.711 - PERSONAL HISTORY OF PULMONARY EMBOLISM (5) Arthritis of left knee Assessment/Plan: lidoderm patch Code(s): M17.12 - UNILATERAL PRIMARY OSTEOARTHRITIS, LEFT KNEE (6) DM2 (diabetes mellitus, type 2) Assessment/Plan: monitor bgms. on novolog ss. hmga1c Code(s): E11.9 - TYPE 2 DIABETES MELLITUS WITHOUT COMPLICATIONS Qualifiers: Diabetes mellitus assisted insulin use: without assisted use Diabetes mellitus complication status: without complication Qualified Code(s): E11.9 - Type 2 diabetes mellitus without complications (7) Prophylactic measure Assessment/Plan: phil hernández, advance per surgery monitor electrolytes prophy on heparin drip Code(s): Z29.9 - ENCOUNTER FOR PROPHYLACTIC MEASURES, UNSPECIFIED Visit type - Emergency Visit Emergency Visit: Yes ED Registration Date: 01/03/19 Care time: The patient presented to the Emergency Department on the above date and was hospitalized for further evaluation of their emergent condition. - New Patient This patient is new to me today: Yes Date on this admission: 01/04/19 - Critical Care Critical Care patient: No - Discharge Referral Referred to [facility] No
--- NOTE | 2019-01-04 17:25 | PN ---
Progress Note, Physician History of Present Illness: Pt with epigastric pain/tenderness, also RUQ tenderness, enlarged gallbladder with multiple large stones on imaging without signs of cholecystitis. HbA1C is 6 , normal. Labs today normal. Echo this morning shows EF 30-35% with severely reduced LV function. Pt therapeutic on heparin drip for PE from 05/24. She reports minimal abdominal pain, being hungry, and is taking pain meds for knee pain. No n/v. - Current Medication List Current Medications: Active Medications Acetaminophen (Tylenol -) 325 mg PO Q8H PRN PRN Reason: PAIN LEVEL 6-10 Last Admin: 01/04/19 16:13 Dose: 325 mg Carvedilol (Coreg -) 25 mg PO BID [facility] Last Admin: 01/04/19 10:26 Dose: 25 mg Cyclobenzaprine HCl (Flexeril -) 10 mg PO DAILY [facility] Last Admin: 01/04/19 10:26 Dose: 10 mg Gabapentin (Neurontin -) 400 mg PO TID [facility] Last Admin: 01/04/19 14:06 Dose: 400 mg Heparin Sodium (Porcine) (Heparin -) 5,000 unit IVPUSH PRN PRN PRN Reason: APTT Heparin Sodium (Porcine) (Heparin -) 1,000 unit IVPUSH PRN PRN PRN Reason: APTT Sodium Chloride (Normal Saline -) 1,000 mls @ 50 mls/hr IV ASDIR [facility] Stop: 01/04/19 19:14 Last Admin: 01/04/19 10:27 Dose: 50 mls/hr Heparin Sodium/Dextrose (Heparin Infusion -) 25,000 units in 500 mls @ 20 mls/ hr IVPB TITR [facility]; Protocol Last Titration: 01/04/19 08:54 Dose: 950 units/hr, 19 mls/hr Ondansetron HCl (Zofran Injection) 4 mg IVPUSH Q6H PRN PRN Reason: NAUSEA Last Admin: 01/04/19 05:51 Dose: 4 mg Oxycodone HCl (Roxicodone -) 10 mg PO Q8H PRN PRN Reason: PAIN LEVEL 6-10 Last Admin: 01/04/19 16:12 Dose: 10 mg Quetiapine Fumarate (Seroquel -) 200 mg PO HS [facility] Last Admin: 01/03/19 22:26 Dose: 200 mg Ranitidine HCl (Zantac -) 150 mg PO BID [facility] Last Admin: 01/04/19 10:26 Dose: 150 mg Venlafaxine HCl (Effexor -) 75 mg PO TID [facility] Last Admin: 01/04/19 14:06 Dose: 75 mg Zolpidem Tartrate (Ambien -) 10 mg PO HS PRN PRN Reason: INSOMNIA Last Admin: 01/03/19 22:26 Dose: 10 mg - Objective Vital Signs: Vital Signs Temperature 98.2 F 01/04/19 14:23 Pulse Rate 72 01/04/19 14:23 Respiratory Rate 16 01/04/19 14:23 Blood Pressure 149/78 01/04/19 14:23 O2 Sat by Pulse Oximetry (%) 97 01/04/19 09:00 Constitutional: Yes: No Distress, Calm, Obese Eyes: Yes: Conjunctiva Clear, EOM Intact. No: Sclera Icterus HENT: Yes: Atraumatic, Normocephalic Gastrointestinal: Yes: Soft, Abdomen, Obese, Tenderness (RUQ, mild, less than epigastric), Tenderness, Epigastrium (less than yesterday). No: Tenderness, Rebound Extremities: No: Cool, Cyanosis Integumentary: No: Jaundice, Rash Neurological: Yes: Alert, Oriented Labs: CBC, BMP 01/04/19 05:30 01/04/19 06:01 INR, PTT INR 1.21 (0.83-1.09) H 01/04/19 05:30 CMP Sodium 139 mmol/L (136-145) 01/04/19 06:01 Potassium 3.5 mmol/L (3.5-5.1) 01/04/19 06:01 Chloride 106 mmol/L (98-107) 01/04/19 06:01 Carbon Dioxide 27 mmol/L (21-32) 01/04/19 06:01 Anion Gap 7 MMOL/L (8-16) L 01/04/19 06:01 BUN 19 mg/dL (7-18) H 01/04/19 06:01 Creatinine 1.3 mg/dL (0.55-1.3) 01/04/19 06:01 Est GFR (CKD-EPI)AfAm 52.00 01/04/19 06:01 Est GFR (CKD-EPI)NonAf 44.87 01/04/19 06:01 POC Glucometer 80 UNITS (80-120) 01/04/19 15:27 Random Glucose 89 mg/dL (74-106) 01/04/19 06:01 Hemoglobin A1c % 6.0 % (4.2-6.3) 01/04/19 05:30 Lactic Acid 0.7 mmol/L (0.4-2.0) 01/03/19 23:20 Calcium 9.1 mg/dL (8.5-10.1) 01/04/19 06:01 Phosphorus 3.0 mg/dL (2.5-4.9) 01/03/19 09:34 Magnesium 2.1 mg/dL (1.8-2.4) 01/03/19 09:34 Total Bilirubin 0.5 mg/dL (0.2-1) 01/04/19 06:01 AST 18 U/L (15-37) 01/04/19 06:01 ALT 33 U/L (13-61) 01/04/19 06:01 Alkaline Phosphatase 71 U/L (45-117) 01/04/19 06:01 Creatine Kinase 292 U/L (26-192) H 01/03/19 09:34 Creatine Kinase Index 0.8 % (0.0-5.0) 01/03/19 09:34 CK-MB (CK-2) 2.4 ng/mL (0.5-3.6) 01/03/19 09:34 Troponin I < 0.02 ng/ml (0.00-0.05) 01/03/19 09:34 B-Natriuretic Peptide 598.0 pg/ml (5-125) H 01/03/19 09:34 Total Protein 7.2 g/dl (6.4-8.2) 01/04/19 06:01 Albumin 3.4 g/dl (3.4-5.0) 01/04/19 06:01 Lipase 97 U/L (73-393) 01/03/19 09:34 BUN/Cr down from 21/1.4 lactate was normal Problem List - Problems (1) Calculus of gallbladder without cholecystitis without obstruction Assessment/Plan: given overdistended gallbladder with large stones, pain could be secondary to biliary colic pain is improved though she is still mildly tender epigastric and RUQ no vomiting will order clear liquids and reassess tomorrow for advancement given echo findings and other comorbidities, if cholecystectomy ultimately seems indicated or desired, may be best served by surgical evaluation at tertiary center with more cardiac capabilities? if she is able to tolerate low-fat diet over weekend, would not plan to operate this admission discussed with Haider Scherer NP Code(s): K80.20 - CALCULUS OF GALLBLADDER W/O CHOLECYSTITIS W/O OBSTRUCTION (2) Epigastric pain Assessment/Plan: improved Code(s): R10.13 - EPIGASTRIC PAIN (3) Nausea & vomiting Assessment/Plan: resolved Code(s): R11.2 - NAUSEA WITH VOMITING, UNSPECIFIED Qualifiers: Vomiting type: unspecified Vomiting Intractability: non-intractable Qualified Code(s): R11.2 - Nausea with vomiting, unspecified (4) History of pulmonary embolism Assessment/Plan: from May 2018 cause - ? unprovoked? unclear duration of need for anticoagulation heparin drip for now if no intervention planned later in weekend, could consider resuming eliquis see above Code(s): Z86.711 - PERSONAL HISTORY OF PULMONARY EMBOLISM (5) Anticoagulant long-term use Code(s): Z79.01 - PROSTHODONTIST/EDUCATOR (CURRENT) USE OF ANTICOAGULANTS (6) Chronic systolic CHF (congestive heart failure), NYHA class 3 Assessment/Plan: cardiology on board echo shows severely reduced EF, LV fxn Code(s): I50.22 - CHRONIC SYSTOLIC (CONGESTIVE) HEART FAILURE (7) Arthritis of left knee Assessment/Plan: awaiting replacement "when I can get off Eliquis" Code(s): M17.12 - UNILATERAL PRIMARY OSTEOARTHRITIS, LEFT KNEE (8) Chronic pain Code(s): G89.29 - OTHER CHRONIC PAIN Qualifiers: Chronic pain type: chronic pain syndrome Qualified Code(s): G89.4 - Chronic pain syndrome (9) DM2 (diabetes mellitus, type 2) Assessment/Plan: A1C is normal - not on any meds - no current evidence of diabetes Code(s): E11.9 - TYPE 2 DIABETES MELLITUS WITHOUT COMPLICATIONS Qualifiers: Diabetes mellitus [facility] insulin use: without exterminator helper use Diabetes mellitus complication status: without complication Qualified Code(s): E11.9 - Type 2 diabetes mellitus without complications (10) Essential hypertension Code(s): I10 - ESSENTIAL (PRIMARY) HYPERTENSION (11) GERD (gastroesophageal reflux disease) Assessment/Plan: cont home med Code(s): K21.9 - GASTRO-ESOPHAGEAL REFLUX DISEASE WITHOUT ESOPHAGITIS Qualifiers: Esophagitis presence: without esophagitis Qualified Code(s): K21.9 - Gastro -esophageal reflux disease without esophagitis (12) Morbid obesity Code(s): E66.01 - MORBID (SEVERE) OBESITY DUE TO EXCESS CALORIES (13) Drug induced constipation Assessment/Plan: would continue senna/motility agent routinely Code(s): K59.03 - DRUG INDUCED CONSTIPATION
[2019-01-04] MEDS: QUEtiapine FUMARATE 100 MG TABLET (FP) PO SCH (21:46)
[2019-01-04] MEDS: INSULIN SLIDING SCALE (NOVOLOG) 1 VIAL SQ SCH (21:47)
[2019-01-04] MEDS: LIDOCAINE PATCH REMOVAL MC SCH (23:15)
[2019-01-04] MEDS: HEPARIN INFUSION - 25,000 UNITS/500 ML INFUS.BAG IVPB SCH (23:19)
[2019-01-05] MEDS: oxyCODONE HCL 5 MG TABLET PO PRN ×4 (01:03→23:50)
[2019-01-05] MEDS: DOCUSATE SODIUM 100 MG CAPSULE (FP) PO SCH ×3 (06:55→21:21)
[2019-01-05] MEDS: INSULIN SLIDING SCALE (NOVOLOG) 1 VIAL SQ SCH ×4 (06:55→21:27)
[2019-01-05] MEDS: GABAPENTIN 400 MG CAPSULE (FP) PO SCH ×3 (06:55→21:20)
[2019-01-05] MEDS: VENLAFAXINE HCL 75 MG TABLET PO SCH ×3 (06:55→21:20)
[2019-01-05] MEDS ORDERED: LIDOCAINE 5% TOPICAL PATCH TP SCH (10:00)
--- NOTE | 2019-01-05 10:28 | PN ---
Progress Note, Physician History of Present Illness: No CV complaints Abd pain improving Tele: NSR - Current Medication List Current Medications: Active Medications Acetaminophen (Tylenol -) 325 mg PO Q8H PRN PRN Reason: PAIN LEVEL 6-10 Last Admin: 01/04/19 16:13 Dose: 325 mg Carvedilol (Coreg -) 25 mg PO BID [facility] Last Admin: 01/04/19 21:47 Dose: 25 mg Cyclobenzaprine HCl (Flexeril -) 10 mg PO DAILY [facility] Last Admin: 01/04/19 10:26 Dose: 10 mg Docusate Sodium (Colace -) 100 mg PO TID [facility] Last Admin: 01/05/19 06:55 Dose: 100 mg Gabapentin (Neurontin -) 400 mg PO TID [facility] Last Admin: 01/05/19 06:55 Dose: 400 mg Heparin Sodium (Porcine) (Heparin -) 5,000 unit IVPUSH PRN PRN PRN Reason: APTT Heparin Sodium (Porcine) (Heparin -) 1,000 unit IVPUSH PRN PRN PRN Reason: APTT Heparin Sodium/Dextrose (Heparin Infusion -) 25,000 units in 500 mls @ 20 mls/ hr IVPB TITR [facility]; Protocol Last Admin: 01/04/19 23:19 Dose: 950 units/hr, 19 mls/hr Insulin Aspart (Novolog Vial Sliding Scale -) 1 vial SQ ACHS [facility]; Protocol Last Admin: 01/05/19 06:55 Dose: Not Given Lidocaine (Lidoderm Patch -) 1 patch TP DAILY [facility] Miscellaneous (Lidoderm Patch Removal) 1 each MC DAILY@2200 [facility] Last Admin: 01/04/19 23:15 Dose: Not Given Ondansetron HCl (Zofran Injection) 4 mg IVPUSH Q6H PRN PRN Reason: NAUSEA Last Admin: 01/04/19 05:51 Dose: 4 mg Oxycodone HCl (Roxicodone -) 10 mg PO Q8H PRN PRN Reason: PAIN LEVEL 6-10 Last Admin: 01/05/19 01:03 Dose: 10 mg Polyethylene Glycol (Miralax (For Daily Use) -) 17 gm PO DAILY [facility] Quetiapine Fumarate (Seroquel -) 200 mg PO HS [facility] Last Admin: 01/04/19 21:46 Dose: 200 mg Ranitidine HCl (Zantac -) 150 mg PO BID [facility] Last Admin: 01/04/19 21:47 Dose: 150 mg Senna (Senna -) 2 tab PO HS [facility] Venlafaxine HCl (Effexor -) 75 mg PO TID [facility] Last Admin: 01/05/19 06:55 Dose: 75 mg Zolpidem Tartrate (Ambien -) 10 mg PO HS PRN PRN Reason: INSOMNIA Last Admin: 01/03/19 22:26 Dose: 10 mg - Objective Vital Signs: Vital Signs Temperature 97.7 F 01/05/19 06:00 Pulse Rate 64 01/05/19 06:00 Respiratory Rate 18 01/05/19 06:00 Blood Pressure 140/77 01/05/19 06:00 O2 Sat by Pulse Oximetry (%) 97 01/04/19 21:00 Constitutional: Yes: No Distress Cardiovascular: Yes: Regular Rate and Rhythm Respiratory: Yes: CTA Bilaterally Edema: No Labs: CBC, BMP 01/04/19 05:30 01/04/19 06:01 INR, PTT INR 1.21 (0.83-1.09) H 01/04/19 05:30 Assessment/Plan IMP: 1. Cholelithiasis, biliary colic 2. Non-ischemic CM 3. History of pulmonary embolism 4. HTN 5. Morbid obesity REC: 1. Continue On heparin IV. If no surgery planned, can switch back to Eliquis. 2. Cont usual meds for CHF including BB and ROMI-I. Holding lasix as he appears euvolemic today 3. Plan for repeat echo to assess LV fx 4. Surgery following.
--- NOTE | 2019-01-05 10:29 | PN ---
Progress Note, Physician Chief Complaint: left knee pain, denies shortness of breath. wants to advance her diet. History of Present Illness: Patient is a 58 year old female with a significant past medical history of GERD , chronic opiod use for left knee pain (pending knee replacement), depression, HTN, CHF (last EF documented EF<15%), PE and Cardiac cath 05/2018 (on eliquis). She presents to the ED on 01/04/2019 with nausea, multiple episodes of nonbloody, nonbilious vomiting, and epigastric pain x 1 day. pt unable to keep food down, denies any sick contacts, eating new foods. Last BM 2-3 days ago, pt takes senna for constipation. On admission, patient had severe abdominal pain and was admitted to telemetry due to severe CHF. imaging: ct scan: cholelithasis. gallbladder overdistened which could be the basis of etiologies such as biliary dyskinesia or diabetic neuropathy. colonic fecal retention. small to moderate hiatal hernia. 3cm right ovarian cyst. echo 01/04/19: mild concenteric left ventricular hypertrophy. EF 30-35%. severe global hypokinesis. mild mitral valve thickening. mild mitral regrug. no pericardial effusion. vascular study: negative for dvt. - Current Medication List Current Medications: Active Medications Acetaminophen (Tylenol -) 325 mg PO Q8H PRN PRN Reason: PAIN LEVEL 6-10 Last Admin: 01/04/19 16:13 Dose: 325 mg Carvedilol (Coreg -) 25 mg PO BID [facility] Last Admin: 01/04/19 21:47 Dose: 25 mg Cyclobenzaprine HCl (Flexeril -) 10 mg PO DAILY [facility] Last Admin: 01/04/19 10:26 Dose: 10 mg Docusate Sodium (Colace -) 100 mg PO TID [facility] Last Admin: 01/05/19 06:55 Dose: 100 mg Gabapentin (Neurontin -) 400 mg PO TID [facility] Last Admin: 01/05/19 06:55 Dose: 400 mg Heparin Sodium (Porcine) (Heparin -) 5,000 unit IVPUSH PRN PRN PRN Reason: APTT Heparin Sodium (Porcine) (Heparin -) 1,000 unit IVPUSH PRN PRN PRN Reason: APTT Heparin Sodium/Dextrose (Heparin Infusion -) 25,000 units in 500 mls @ 20 mls/ hr IVPB TITR [facility]; Protocol Last Admin: 01/04/19 23:19 Dose: 950 units/hr, 19 mls/hr Insulin Aspart (Novolog Vial Sliding Scale -) 1 vial SQ ACHS [facility]; Protocol Last Admin: 01/05/19 06:55 Dose: Not Given Lidocaine (Lidoderm Patch -) 1 patch TP DAILY [facility] Miscellaneous (Lidoderm Patch Removal) 1 each MC DAILY@2200 [facility] Last Admin: 01/04/19 23:15 Dose: Not Given Ondansetron HCl (Zofran Injection) 4 mg IVPUSH Q6H PRN PRN Reason: NAUSEA Last Admin: 01/04/19 05:51 Dose: 4 mg Oxycodone HCl (Roxicodone -) 10 mg PO Q8H PRN PRN Reason: PAIN LEVEL 6-10 Last Admin: 01/05/19 01:03 Dose: 10 mg Polyethylene Glycol (Miralax (For Daily Use) -) 17 gm PO DAILY [facility] Quetiapine Fumarate (Seroquel -) 200 mg PO HS [facility] Last Admin: 01/04/19 21:46 Dose: 200 mg Ranitidine HCl (Zantac -) 150 mg PO BID [facility] Last Admin: 01/04/19 21:47 Dose: 150 mg Senna (Senna -) 2 tab PO HS [facility] Venlafaxine HCl (Effexor -) 75 mg PO TID [facility] Last Admin: 01/05/19 06:55 Dose: 75 mg Zolpidem Tartrate (Ambien -) 10 mg PO HS PRN PRN Reason: INSOMNIA Last Admin: 01/03/19 22:26 Dose: 10 mg - Objective Vital Signs: Vital Signs Temperature 97.7 F 01/05/19 06:00 Pulse Rate 64 01/05/19 06:00 Respiratory Rate 18 01/05/19 06:00 Blood Pressure 140/77 01/05/19 06:00 O2 Sat by Pulse Oximetry (%) 97 01/04/19 21:00 Labs: CBC, BMP 01/04/19 05:30 01/04/19 06:01 INR, PTT INR 1.21 (0.83-1.09) H 01/04/19 05:30 Problem List - Problems (1) Chronic systolic CHF (congestive heart failure), NYHA class 3 Assessment/Plan: Patient with history of systolic Chf with EF 30% on most recent echo 01/04/2019. She is on Lasix and Coreq. She is currently without any symptoms of volume overload and her weights have increased by 2kg since admission. She is tolerating room air Code(s): I50.22 - CHRONIC SYSTOLIC (CONGESTIVE) HEART FAILURE (2) Epigastric pain Assessment/Plan: Acute Cholelithiasis with overdistended gallbladder. pain management with oxycodone and on a with bowel regimen zofran prn Surgery following and diet has been advanced. Patient has tolerated clears and now on low cholesterol, low salt diet Code(s): R10.13 - EPIGASTRIC PAIN (3) Gall stones Code(s): K80.20 - CALCULUS OF GALLBLADDER W/O CHOLECYSTITIS W/O OBSTRUCTION (4) History of pulmonary embolism Assessment/Plan: Eliquis on hold, on heparin drip, however, will transition her back to home dose eliquis as no invasive procedures or surgeries are planned. aptt therapeutic @ 55. Unsure of PE was provoked vs. unprovoked event. Has been on Eliquis and has not seen a personalized living assistant as an outpatient. If she need surgery in the future (both for left knee and gallbladder surgery), it is best for her to be followed by heme starting during her stay here then as an outpatient. Code(s): Z86.711 - PERSONAL HISTORY OF PULMONARY EMBOLISM (5) Arthritis of left knee Assessment/Plan: lidoderm patch x 2 on left knee. patient for ortho follow up as an outpatient for possible knee surgery. Code(s): M17.12 - UNILATERAL PRIMARY OSTEOARTHRITIS, LEFT KNEE (6) DM2 (diabetes mellitus, type 2) Assessment/Plan: monitor bgms. on novolog ss. hmga1c 6.0. monitor Code(s): E11.9 - TYPE 2 DIABETES MELLITUS WITHOUT COMPLICATIONS Qualifiers: Diabetes mellitus packager hand insulin use: without fdc use Diabetes mellitus complication status: without complication Qualified Code(s): E11.9 - Type 2 diabetes mellitus without complications (7) Morbid obesity due to excess calories Assessment/Plan: BMI 119, weight loss encouraged. Patient may benefit from a bariatric consult as an outpatient. Code(s): E66.01 - MORBID (SEVERE) OBESITY DUE TO EXCESS CALORIES (8) Prophylactic measure Assessment/Plan: fen low cholesteral/low fat monitor electrolytes prophy on heparin drip, then will transition back to eliquis Code(s): Z29.9 - ENCOUNTER FOR PROPHYLACTIC MEASURES, UNSPECIFIED Visit type - Emergency Visit Emergency Visit: Yes ED Registration Date: 01/03/19 Care time: The patient presented to the Emergency Department on the above date and was hospitalized for further evaluation of their emergent condition. - New Patient This patient is new to me today: No - Critical Care Critical Care patient: No - Discharge Referral Referred to [facility] No
[2019-01-05] MEDS ORDERED: PT OWN MED DRAWER 7, Y5N ONE ×3 (10:44→21:16)
[2019-01-05] MEDS: LIDOCAINE 5% TOPICAL PATCH TP SCH (10:48)
[2019-01-05] MEDS: CARVEDILOL 25 MG TABLET (FP) PO SCH ×2 (10:49→21:20)
[2019-01-05] MEDS: RANITIDINE HCL 150 MG TABLET (FP) PO SCH ×2 (10:49→21:20)
[2019-01-05] MEDS: CYCLOBENZAPRINE HCL 10 MG TABLET (FP) PO SCH (10:49)
[2019-01-05] MEDS: ACETAMINOPHEN 325 MG TABLET (FP) PO PRN ×2 (10:59→23:51)
[2019-01-05] MEDS: POLYETHYLENE GLYCOL 3350 119 GM BTL PO SCH (11:40)
[2019-01-05 13:04] LABS: BASO % 0.8 % (0-2.0); HEMATOCRIT 28.7 % (32.4-45.2); LYMPH % 29.5 % (8-40); MCHC 31.3 g/dl (32.0-36.0); MEAN CELL VOLUME 83.3 fl (80-96); MEAN PLT VOLUME 7.3 fl (7.5-11.1); MONO % 9.7 % (3.8-10.2); PLATELET COUNT 351 K/MM3 (134-434); RBC 3.45 M/mm3 (3.60-5.2); RDW 14.3 % (11.6-15.6); WHITE BLOOD COUNT 5.7 K/mm3 (4.0-10.0)
[2019-01-05 13:30] LABS: ALBUMIN 3.1 g/dl (3.4-5.0); BILIRUBIN,TOTAL 0.3 mg/dL (0.2-1); CALCIUM 8.6 mg/dL (8.5-10.1); CREATININE 1.5 mg/dL (0.55-1.3); MAGNESIUM 2.2 mg/dL (1.8-2.4); POTASSIUM 3.5 mmol/L (3.5-5.1); TOT PROT 6.9 g/dl (6.4-8.2)
--- NOTE | 2019-01-05 14:48 | PN ---
Progress Note, Physician History of Present Illness: Pt with epigastric pain/tenderness, also RUQ tenderness, enlarged gallbladder with multiple large stones on imaging without signs of cholecystitis. Echo showed EF 30-35% with severely reduced LV function. Pt on heparin drip for PE from 05/24. She reports improved abdominal pain, tolerating clears without worsening. Complained of lower left espinal pain and leg pain. Had Doppler showing no DVT bilaterally. Has gotten OOB to chair. Requests some type of physical therapy, if possible, while in hospital. Seen and examined resting comfortably in bed. - Current Medication List Current Medications: Active Medications Acetaminophen (Tylenol -) 325 mg PO Q8H PRN PRN Reason: PAIN LEVEL 6-10 Last Admin: 01/05/19 10:59 Dose: 325 mg Carvedilol (Coreg -) 25 mg PO BID [facility] Last Admin: 01/05/19 10:49 Dose: 25 mg Cyclobenzaprine HCl (Flexeril -) 10 mg PO DAILY [facility] Last Admin: 01/05/19 10:49 Dose: 10 mg Docusate Sodium (Colace -) 100 mg PO TID [facility] Last Admin: 01/05/19 14:19 Dose: 100 mg Gabapentin (Neurontin -) 400 mg PO TID [facility] Last Admin: 01/05/19 14:19 Dose: 400 mg Heparin Sodium (Porcine) (Heparin -) 5,000 unit IVPUSH PRN PRN PRN Reason: APTT Heparin Sodium (Porcine) (Heparin -) 1,000 unit IVPUSH PRN PRN PRN Reason: APTT Heparin Sodium/Dextrose (Heparin Infusion -) 25,000 units in 500 mls @ 20 mls/ hr IVPB TITR [facility]; Protocol Last Admin: 01/04/19 23:19 Dose: 950 units/hr, 19 mls/hr Insulin Aspart (Novolog Vial Sliding Scale -) 1 vial SQ ACHS [facility]; Protocol Last Admin: 01/05/19 11:45 Dose: Not Given Lidocaine (Lidoderm Patch -) 2 patch TP DAILY [facility] Last Admin: 01/05/19 10:48 Dose: 2 patch Miscellaneous (Lidoderm Patch Removal) 1 each MC DAILY@2200 [facility] Last Admin: 01/04/19 23:15 Dose: Not Given Miscellaneous (Lidoderm Patch Removal) 1 each MC DAILY@2200 [facility] Ondansetron HCl (Zofran Injection) 4 mg IVPUSH Q6H PRN PRN Reason: NAUSEA Last Admin: 01/04/19 05:51 Dose: 4 mg Oxycodone HCl (Roxicodone -) 10 mg PO Q6H PRN PRN Reason: PAIN LEVEL 6-10 Last Admin: 01/05/19 10:49 Dose: 10 mg Polyethylene Glycol (Miralax (For Daily Use) -) 17 gm PO DAILY [facility] Last Admin: 01/05/19 11:40 Dose: 119 grams Quetiapine Fumarate (Seroquel -) 200 mg PO HS [facility] Last Admin: 01/04/19 21:46 Dose: 200 mg Ranitidine HCl (Zantac -) 150 mg PO BID [facility] Last Admin: 01/05/19 10:49 Dose: 150 mg Senna (Senna -) 2 tab PO HS [facility] Venlafaxine HCl (Effexor -) 75 mg PO TID [facility] Last Admin: 01/05/19 14:23 Dose: 75 mg Zolpidem Tartrate (Ambien -) 10 mg PO HS PRN PRN Reason: INSOMNIA Last Admin: 01/03/19 22:26 Dose: 10 mg - Objective Vital Signs: Vital Signs Temperature 97.8 F 01/05/19 14:14 Pulse Rate 74 01/05/19 14:14 Respiratory Rate 16 01/05/19 14:14 Blood Pressure 141/76 01/05/19 14:14 O2 Sat by Pulse Oximetry (%) 97 01/05/19 09:00 Constitutional: Yes: No Distress, Calm, Obese Eyes: Yes: Conjunctiva Clear, EOM Intact. No: Sclera Icterus HENT: Yes: Atraumatic, Normocephalic Gastrointestinal: Yes: Soft, Abdomen, Obese, Tenderness (mild RUQ), Tenderness, Epigastrium (mild, slightly more than RUQ; no godwin/guard) Extremities: Yes: Other (lidocaine patches on left anterior lower thigh, knee, espinal). No: Cool, Cyanosis Integumentary: No: Jaundice, Rash Neurological: Yes: Alert, Oriented Labs: CBC, BMP 01/05/19 12:48 01/05/19 12:48 PTT 55.9 - ....Imaging Ultrasound: Report Reviewed (no DVT either side) Problem List - Problems (1) Calculus of gallbladder without cholecystitis without obstruction Assessment/Plan: given overdistended gallbladder with large stones, pain could be secondary to biliary colic pain is more improved though she is still mildly tender epigastric and RUQ no vomiting tolerating clear liquids - ok to try low-fat diet given echo findings and other comorbidities, if cholecystectomy ultimately seems indicated or desired, may be best served by surgical evaluation at tertiary center with more cardiac capabilities? if she is able to tolerate low-fat diet over weekend, would resume Eliquis tomorrow and not plan to operate this admission discussed with Haider Scherer NP Code(s): K80.20 - CALCULUS OF GALLBLADDER W/O CHOLECYSTITIS W/O OBSTRUCTION (2) Epigastric pain Assessment/Plan: improved Code(s): R10.13 - EPIGASTRIC PAIN (3) Nausea & vomiting Assessment/Plan: resolved Code(s): R11.2 - NAUSEA WITH VOMITING, UNSPECIFIED Qualifiers: Vomiting type: unspecified Vomiting Intractability: non-intractable Qualified Code(s): R11.2 - Nausea with vomiting, unspecified (4) History of pulmonary embolism Assessment/Plan: from May 2018 cause - ? unprovoked? 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 (6) Chronic systolic CHF (congestive heart failure), NYHA class 3 Assessment/Plan: cardiology on board echo shows severely reduced EF, LV fxn Code(s): I50.22 - CHRONIC SYSTOLIC (CONGESTIVE) HEART FAILURE (7) Arthritis of left knee Assessment/Plan: awaiting replacement "when I can get off Eliquis" Code(s): M17.12 - UNILATERAL PRIMARY OSTEOARTHRITIS, LEFT KNEE (8) Chronic pain Code(s): G89.29 - OTHER CHRONIC PAIN Qualifiers: Chronic pain type: chronic pain syndrome Qualified Code(s): G89.4 - Chronic pain syndrome (9) Essential hypertension Code(s): I10 - ESSENTIAL (PRIMARY) HYPERTENSION (10) GERD (gastroesophageal reflux disease) Assessment/Plan: cont home med Code(s): K21.9 - GASTRO-ESOPHAGEAL REFLUX DISEASE WITHOUT ESOPHAGITIS Qualifiers: Esophagitis presence: without esophagitis Qualified Code(s): K21.9 - Gastro -esophageal reflux disease without esophagitis (11) Morbid obesity Code(s): E66.01 - MORBID (SEVERE) OBESITY DUE TO EXCESS CALORIES (12) Drug induced constipation Assessment/Plan: bowel regimen started would continue senna/motility agent routinely Code(s): K59.03 - DRUG INDUCED CONSTIPATION
[2019-01-05 15:04] VITALS: BMI 42.4
[2019-01-05] MEDS: ONDANSETRON 4 MG/2 ML VIAL IVPUSH PRN (17:49)
[2019-01-05] MEDS: SENNOSIDES 8.6MG TABLET (FP) PO SCH (21:20)
[2019-01-05] MEDS: QUEtiapine FUMARATE 100 MG TABLET (FP) PO SCH (21:20)
[2019-01-05] MEDS: LIDOCAINE PATCH REMOVAL MC SCH ×2 (21:27)
[2019-01-05] MEDS: HEPARIN INFUSION - 25,000 UNITS/500 ML INFUS.BAG IVPB SCH (22:12)
[2019-01-06] MEDS: DOCUSATE SODIUM 100 MG CAPSULE (FP) PO SCH ×3 (05:56→21:24)
[2019-01-06] MEDS: VENLAFAXINE HCL 75 MG TABLET PO SCH ×3 (05:56→21:24)
[2019-01-06] MEDS: GABAPENTIN 400 MG CAPSULE (FP) PO SCH ×3 (05:56→21:24)
[2019-01-06] MEDS: oxyCODONE HCL 5 MG TABLET PO PRN ×3 (05:56→19:19)
[2019-01-06] MEDS: INSULIN SLIDING SCALE (NOVOLOG) 1 VIAL SQ SCH ×4 (06:09→21:25)
--- NOTE | 2019-01-06 08:44 | PN ---
Progress Note, Physician Chief Complaint: left knee pain, denies shortness of breath. tolerating diet, mild epigastric pain but improved overall. History of Present Illness: Patient is a 58 year old female with a significant past medical history of GERD , chronic opiod use for left knee pain (pending knee replacement), depression, HTN, CHF (last EF documented EF<15%), PE and Cardiac cath 05/2018 (on eliquis). She presents to the ED on 01/04/2019 with nausea, multiple episodes of nonbloody, nonbilious vomiting, and epigastric pain x 1 day. pt unable to keep food down, denies any sick contacts, eating new foods. Last BM 2-3 days ago, pt takes senna for constipation. On admission, patient had severe abdominal pain and was admitted to telemetry due to severe CHF. imaging: ct scan: cholelithasis. gallbladder overdistened which could be the basis of etiologies such as biliary dyskinesia or diabetic neuropathy. colonic fecal retention. small to moderate hiatal hernia. 3cm right ovarian cyst. echo 01/04/19: mild concenteric left ventricular hypertrophy. EF 30-35%. severe global hypokinesis. mild mitral valve thickening. mild mitral regrug. no pericardial effusion. vascular study: negative for dvt. - Current Medication List Current Medications: Active Medications Acetaminophen (Tylenol -) 325 mg PO Q8H PRN PRN Reason: PAIN LEVEL 6-10 Last Admin: 01/05/19 23:51 Dose: 325 mg Carvedilol (Coreg -) 25 mg PO BID [facility] Last Admin: 01/05/19 21:20 Dose: 25 mg Cyclobenzaprine HCl (Flexeril -) 10 mg PO DAILY [facility] Last Admin: 01/05/19 10:49 Dose: 10 mg Docusate Sodium (Colace -) 100 mg PO TID [facility] Last Admin: 01/06/19 05:56 Dose: 100 mg Gabapentin (Neurontin -) 400 mg PO TID [facility] Last Admin: 01/06/19 05:56 Dose: 400 mg Heparin Sodium (Porcine) (Heparin -) 5,000 unit IVPUSH PRN PRN PRN Reason: APTT Heparin Sodium (Porcine) (Heparin -) 1,000 unit IVPUSH PRN PRN PRN Reason: APTT Heparin Sodium/Dextrose (Heparin Infusion -) 25,000 units in 500 mls @ 20 mls/ hr IVPB TITR [facility]; Protocol Last Admin: 01/05/19 22:12 Dose: 950 units/hr, 19 mls/hr Insulin Aspart (Novolog Vial Sliding Scale -) 1 vial SQ ACHS [facility]; Protocol Last Admin: 01/06/19 06:09 Dose: Not Given Lidocaine (Lidoderm Patch -) 2 patch TP DAILY [facility] Last Admin: 01/05/19 10:48 Dose: 2 patch Miscellaneous (Lidoderm Patch Removal) 1 each MC DAILY@0 [facility] Last Admin: 01/05/19 21:27 Dose: 1 each Miscellaneous (Lidoderm Patch Removal) 1 each MC DAILY@2199 [facility] Last Admin: 01/05/19 21:27 Dose: 1 each Ondansetron HCl (Zofran Injection) 4 mg IVPUSH Q6H PRN PRN Reason: NAUSEA Last Admin: 01/05/19 17:49 Dose: 4 mg Oxycodone HCl (Roxicodone -) 10 mg PO Q6H PRN PRN Reason: PAIN LEVEL 6-10 Last Admin: 01/06/19 05:56 Dose: 10 mg Polyethylene Glycol (Miralax (For Daily Use) -) 17 gm PO DAILY [facility] Last Admin: 01/05/19 11:40 Dose: 119 grams Quetiapine Fumarate (Seroquel -) 200 mg PO HS [facility] Last Admin: 01/05/19 21:20 Dose: 200 mg Ranitidine HCl (Zantac -) 150 mg PO BID [facility] Last Admin: 01/05/19 21:20 Dose: 150 mg Senna (Senna -) 2 tab PO HS [facility] Last Admin: 01/05/19 21:20 Dose: 2 tab Venlafaxine HCl (Effexor -) 75 mg PO TID [facility] Last Admin: 01/06/19 05:56 Dose: 75 mg Zolpidem Tartrate (Ambien -) 10 mg PO HS PRN PRN Reason: INSOMNIA Last Admin: 01/03/19 22:26 Dose: 10 mg - Objective Vital Signs: Vital Signs Temperature 97.8 F 01/06/19 06:00 Pulse Rate 71 01/06/19 06:00 Respiratory Rate 20 01/06/19 06:00 Blood Pressure 112/72 01/06/19 06:00 O2 Sat by Pulse Oximetry (%) 97 01/05/19 21:00 Constitutional: Yes: Well Nourished, No Distress, Calm Eyes: Yes: WNL HENT: Yes: WNL Neck: Yes: WNL Cardiovascular: Yes: Regular Rate and Rhythm Respiratory: Yes: WNL Gastrointestinal: Yes: Normal Bowel Sounds, Abdomen, Obese ...Rectal Exam: Yes: Deferred Genitourinary: Yes: WNL Extremities: Yes: WNL Edema: No Integumentary: Yes: WNL Neurological: Yes: Alert, Oriented ...Motor Strength: WNL Psychiatric: Yes: WNL, Alert, Oriented Labs: CBC, BMP 01/05/19 12:48 01/05/19 12:48 INR, PTT INR 1.21 (0.83-1.09) H 01/04/19 05:30 Problem List - Problems (1) Chronic systolic CHF (congestive heart failure), NYHA class 3 Assessment/Plan: Patient with history of systolic Chf with EF 30% on most recent echo 01/04/2019. She is on Lasix and Coreq. lasix held by cardiology. She is currently without any symptoms of volume overload and her weights have increased by 2kg since admission. She is tolerating room air Code(s): I50.22 - CHRONIC SYSTOLIC (CONGESTIVE) HEART FAILURE (2) Epigastric pain Assessment/Plan: Acute Cholelithiasis with overdistended gallbladder. pain management with oxycodone and on a with bowel regimen zofran prn Surgery following and diet has been advanced. c/o of acid reflux today, on zantac. Patient has tolerated clears and now on low cholesterol, low salt diet and is tolerating diet. Code(s): R10.13 - EPIGASTRIC PAIN (3) Gall stones Code(s): K80.20 - CALCULUS OF GALLBLADDER W/O CHOLECYSTITIS W/O OBSTRUCTION (4) History of pulmonary embolism Assessment/Plan: Unsure of PE was provoked vs. unprovoked event, but her brother is on Eliquis for PE as well. Has been on Eliquis and has not seen a veneer department manager as an outpatient. If she need surgery in the future (both for left knee and gallbladder surgery), it is best for her to be followed by heme starting during her stay here then as an outpatient. She is back on Eliquis. Code(s): Z86.711 - PERSONAL HISTORY OF PULMONARY EMBOLISM (5) Arthritis of left knee Assessment/Plan: lidoderm patch x 2 on left knee. patient for ortho follow up as an outpatient for possible knee surgery. Code(s): M17.12 - UNILATERAL PRIMARY OSTEOARTHRITIS, LEFT KNEE (6) DM2 (diabetes mellitus, type 2) Assessment/Plan: monitor bgms. on novolog ss. hmga1c 6.0. monitor Code(s): E11.9 - TYPE 2 DIABETES MELLITUS WITHOUT COMPLICATIONS Qualifiers: Diabetes mellitus usp insulin use: without superintendent marine oil terminal use Diabetes mellitus complication status: without complication Qualified Code(s): E11.9 - Type 2 diabetes mellitus without complications (7) Morbid obesity due to excess calories Assessment/Plan: BMI 119, weight loss encouraged. Patient may benefit from a bariatric consult as an outpatient. Code(s): E66.01 - MORBID (SEVERE) OBESITY DUE TO EXCESS CALORIES (8) Prophylactic measure Assessment/Plan: fen low cholesteral/low fat monitor electrolytes prophy eliquis bid Code(s): Z29.9 - ENCOUNTER FOR PROPHYLACTIC MEASURES, UNSPECIFIED Visit type - Emergency Visit Emergency Visit: Yes ED Registration Date: 01/03/19 Care time: The patient presented to the Emergency Department on the above date and was hospitalized for further evaluation of their emergent condition. - New Patient This patient is new to me today: No - Critical Care Critical Care patient: No - Discharge Referral Referred to [facility] No
[2019-01-06] MEDS: CARVEDILOL 25 MG TABLET (FP) PO SCH ×2 (09:27→21:24)
[2019-01-06] MEDS: CYCLOBENZAPRINE HCL 10 MG TABLET (FP) PO SCH (09:27)
[2019-01-06] MEDS: LIDOCAINE 5% TOPICAL PATCH TP SCH (09:27)
[2019-01-06] MEDS: RANITIDINE HCL 150 MG TABLET (FP) PO SCH ×2 (09:27→21:25)
[2019-01-06] MEDS: POLYETHYLENE GLYCOL 3350 119 GM BTL PO SCH (09:30)
[2019-01-06 09:37] LABS: BASO % 0.8 % (0-2.0); HEMATOCRIT 29.3 % (32.4-45.2); HEMOGLOBIN 9.2 GM/dL (10.7-15.3); LYMPH % 28.7 % (8-40); MCH 26.2 pg (25.7-33.7); MCHC 31.4 g/dl (32.0-36.0); MEAN CELL VOLUME 83.4 fl (80-96); MEAN PLT VOLUME 7.5 fl (7.5-11.1); NEUT % 53.5 % (42.8-82.8); PLATELET COUNT 344 K/MM3 (134-434); RBC 3.52 M/mm3 (3.60-5.2); RDW 14.3 % (11.6-15.6); WHITE BLOOD COUNT 5.1 K/mm3 (4.0-10.0)
--- NOTE | 2019-01-06 10:16 | PN ---
Progress Note, Physician History of Present Illness: Appetite coming back Tolerating PO intake and passing gas No BM yet Walking with some dyspnea - Current Medication List Current Medications: Active Medications Acetaminophen (Tylenol -) 325 mg PO Q8H PRN PRN Reason: PAIN LEVEL 6-10 Last Admin: 01/05/19 23:51 Dose: 325 mg Carvedilol (Coreg -) 25 mg PO BID [facility] Last Admin: 01/06/19 09:27 Dose: 25 mg Cyclobenzaprine HCl (Flexeril -) 10 mg PO DAILY [facility] Last Admin: 01/06/19 09:27 Dose: 10 mg Docusate Sodium (Colace -) 100 mg PO TID [facility] Last Admin: 01/06/19 05:56 Dose: 100 mg Gabapentin (Neurontin -) 400 mg PO TID [facility] Last Admin: 01/06/19 05:56 Dose: 400 mg Heparin Sodium (Porcine) (Heparin -) 5,000 unit IVPUSH PRN PRN PRN Reason: APTT Heparin Sodium (Porcine) (Heparin -) 1,000 unit IVPUSH PRN PRN PRN Reason: APTT Heparin Sodium/Dextrose (Heparin Infusion -) 25,000 units in 500 mls @ 20 mls/ hr IVPB TITR [facility]; Protocol Last Admin: 01/05/19 22:12 Dose: 950 units/hr, 19 mls/hr Insulin Aspart (Novolog Vial Sliding Scale -) 1 vial SQ ACHS [facility]; Protocol Last Admin: 01/06/19 06:09 Dose: Not Given Lidocaine (Lidoderm Patch -) 2 patch TP DAILY [facility] Last Admin: 01/06/19 09:27 Dose: 2 patch Miscellaneous (Lidoderm Patch Removal) 1 each MC DAILY@2200 [facility] Last Admin: 01/05/19 21:27 Dose: 1 each Miscellaneous (Lidoderm Patch Removal) 1 each MC DAILY@2200 [facility] Last Admin: 01/05/19 21:27 Dose: 1 each Ondansetron HCl (Zofran Injection) 4 mg IVPUSH Q6H PRN PRN Reason: NAUSEA Last Admin: 01/05/19 17:49 Dose: 4 mg Oxycodone HCl (Roxicodone -) 10 mg PO Q6H PRN PRN Reason: PAIN LEVEL 6-10 Last Admin: 01/06/19 05:56 Dose: 10 mg Polyethylene Glycol (Miralax (For Daily Use) -) 17 gm PO DAILY [facility] Last Admin: 01/06/19 09:30 Dose: Not Given Quetiapine Fumarate (Seroquel -) 200 mg PO HS [facility] Last Admin: 01/05/19 21:20 Dose: 200 mg Ranitidine HCl (Zantac -) 150 mg PO BID [facility] Last Admin: 01/06/19 09:27 Dose: 150 mg Senna (Senna -) 2 tab PO HS [facility] Last Admin: 01/05/19 21:20 Dose: 2 tab Venlafaxine HCl (Effexor -) 75 mg PO TID [facility] Last Admin: 01/06/19 05:56 Dose: 75 mg Zolpidem Tartrate (Ambien -) 10 mg PO HS PRN PRN Reason: INSOMNIA Last Admin: 01/03/19 22:26 Dose: 10 mg - Objective Vital Signs: Vital Signs Temperature 97.8 F 01/06/19 06:00 Pulse Rate 73 01/06/19 09:33 Respiratory Rate 20 01/06/19 09:33 Blood Pressure 114/63 01/06/19 09:33 O2 Sat by Pulse Oximetry (%) 97 01/06/19 09:00 Constitutional: Yes: No Distress Eyes: Yes: WNL Neck: Yes: WNL Cardiovascular: Yes: Regular Rate and Rhythm Respiratory: Yes: CTA Bilaterally Gastrointestinal: Yes: Abdomen, Obese, Tenderness, Rebound (No rebound) Extremities: Yes: WNL, Calf Tenderness (Left calf tenderness) Edema: No Labs: CBC, BMP 01/06/19 09:10 INR, PTT INR 1.21 (0.83-1.09) H 01/04/19 05:30 Assessment/Plan IMP: 1. Cholelithiasis, biliary colic, tolerating diet 2. Non-ischemic CM 3. History of pulmonary embolism 4. HTN 5. Morbid obesity REC: 1.As per surgery note, no plans for surgery this admission, will switch back to Eliquis. 2. Cont usual meds for CHF including BB and ROMI-I. Holding lasix as he appears euvolemic today, Creat 0.7 3. Plan for repeat echo to assess LV fx 4. Surgery following.
[2019-01-06 10:30] LABS: ALBUMIN 3.2 g/dl (3.4-5.0); BILIRUBIN,TOTAL 0.2 mg/dL (0.2-1); CALCIUM 8.5 mg/dL (8.5-10.1); CREATININE 1.6 mg/dL (0.55-1.3); MAGNESIUM 2.4 mg/dL (1.8-2.4); POTASSIUM 4.1 mmol/L (3.5-5.1)
[2019-01-06] MEDS: ACETAMINOPHEN 325 MG TABLET (FP) PO PRN ×2 (13:36→21:23)
--- NOTE | 2019-01-06 14:39 | PN ---
Progress Note, Physician History of Present Illness: Pt with epigastric pain/tenderness, also RUQ tenderness, enlarged gallbladder with multiple large stones on imaging without signs of cholecystitis. Echo showed EF 30-35% with severely reduced LV function. Pt back on Eliquis instead of heparin drip for PE from 05/24. She reports less abdominal pain, tolerating diet, but notes some subxiphoid pain with eating. Seen and examined in bed. C/O knee pain still, difficulty walking. Had BM - pain is better after that as well. - Current Medication List Current Medications: Active Medications Acetaminophen (Tylenol -) 325 mg PO Q8H PRN PRN Reason: PAIN LEVEL 6-10 Last Admin: 01/06/19 13:36 Dose: 325 mg Apixaban (Eliquis -) 5 mg PO BID [facility] Carvedilol (Coreg -) 25 mg PO BID [facility] Last Admin: 01/06/19 09:27 Dose: 25 mg Cyclobenzaprine HCl (Flexeril -) 10 mg PO DAILY [facility] Last Admin: 01/06/19 09:27 Dose: 10 mg Docusate Sodium (Colace -) 100 mg PO TID [facility] Last Admin: 01/06/19 13:37 Dose: Not Given Gabapentin (Neurontin -) 400 mg PO TID [facility] Last Admin: 01/06/19 13:37 Dose: 400 mg Insulin Aspart (Novolog Vial Sliding Scale -) 1 vial SQ [facility]; Protocol Last Admin: 01/06/19 11:24 Dose: Not Given Lidocaine (Lidoderm Patch -) 2 patch TP DAILY [facility] Last Admin: 01/06/19 09:27 Dose: 2 patch Miscellaneous (Lidoderm Patch Removal) 1 each MC DAILY@2200 [facility] Last Admin: 01/05/19 21:27 Dose: 1 each Miscellaneous (Lidoderm Patch Removal) 1 each MC DAILY@2200 [facility] Last Admin: 01/05/19 21:27 Dose: 1 each Ondansetron HCl (Zofran Injection) 4 mg IVPUSH Q6H PRN PRN Reason: NAUSEA Last Admin: 01/05/19 17:49 Dose: 4 mg Oxycodone HCl (Roxicodone -) 10 mg PO Q6H PRN PRN Reason: PAIN LEVEL 6-10 Last Admin: 01/06/19 13:36 Dose: 10 mg Polyethylene Glycol (Miralax (For Daily Use) -) 17 gm PO DAILY [facility] Last Admin: 01/06/19 09:30 Dose: Not Given Quetiapine Fumarate (Seroquel -) 200 mg PO HS [facility] Last Admin: 01/05/19 21:20 Dose: 200 mg Ranitidine HCl (Zantac -) 150 mg PO BID [facility] Last Admin: 01/06/19 09:27 Dose: 150 mg Senna (Senna -) 2 tab PO HS [facility] Last Admin: 01/05/19 21:20 Dose: 2 tab Venlafaxine HCl (Effexor -) 75 mg PO TID [facility] Last Admin: 01/06/19 13:37 Dose: 75 mg Zolpidem Tartrate (Ambien -) 10 mg PO HS PRN PRN Reason: INSOMNIA Last Admin: 01/03/19 22:26 Dose: 10 mg - Objective Vital Signs: Vital Signs Temperature 97.8 F 01/06/19 06:00 Pulse Rate 73 01/06/19 09:33 Respiratory Rate 20 01/06/19 09:33 Blood Pressure 114/63 01/06/19 09:33 O2 Sat by Pulse Oximetry (%) 97 01/06/19 09:00 Constitutional: Yes: No Distress, Calm, Obese Eyes: Yes: Conjunctiva Clear, EOM Intact HENT: Yes: Atraumatic, Normocephalic Gastrointestinal: Yes: Soft, Abdomen, Obese, Tenderness, Epigastrium (mild, less than previously). No: Tenderness, Rebound Extremities: No: Cool, Cyanosis Integumentary: No: Jaundice, Rash Neurological: Yes: Alert, Oriented Labs: CBC, BMP 01/06/19 09:10 01/06/19 09:10 Problem List - Problems (1) Calculus of gallbladder without cholecystitis without obstruction Assessment/Plan: given overdistended gallbladder with large stones, pain could be secondary to biliary colic pain is less though she is still mildly tender epigastric no vomiting some subxiphoid pain with eating - ?GERD tolerating diet no acute indication for surgical intervention back on eliquis given echo findings and other comorbidities, if cholecystectomy ultimately seems indicated or desired, would refer for surgical evaluation at tertiary center with more cardiac capabilities she indicates some of her doctors have been at [facility] Code(s): K80.20 - CALCULUS OF GALLBLADDER W/O CHOLECYSTITIS W/O OBSTRUCTION (2) Epigastric pain Assessment/Plan: improved - still with some subxiphoid pain with eating Code(s): R10.13 - EPIGASTRIC PAIN (3) History of pulmonary embolism Assessment/Plan: from May 2018 cause - ? unprovoked? 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 (5) Chronic systolic CHF (congestive heart failure), NYHA class 3 Assessment/Plan: cardiology on board echo shows severely reduced EF, LV fxn Code(s): I50.22 - CHRONIC SYSTOLIC (CONGESTIVE) HEART FAILURE (6) Arthritis of left knee Assessment/Plan: awaiting replacement "when I can get off Eliquis" Code(s): M17.12 - UNILATERAL PRIMARY OSTEOARTHRITIS, LEFT KNEE (7) Chronic pain Code(s): G89.29 - OTHER CHRONIC PAIN Qualifiers: Chronic pain type: chronic pain syndrome Qualified Code(s): G89.4 - Chronic pain syndrome (8) Essential hypertension Code(s): I10 - ESSENTIAL (PRIMARY) HYPERTENSION (9) GERD (gastroesophageal reflux disease) Assessment/Plan: cont home med Code(s): K21.9 - GASTRO-ESOPHAGEAL REFLUX DISEASE WITHOUT ESOPHAGITIS Qualifiers: Esophagitis presence: without esophagitis Qualified Code(s): K21.9 - Gastro -esophageal reflux disease without esophagitis (10) Morbid obesity Code(s): E66.01 - MORBID (SEVERE) OBESITY DUE TO EXCESS CALORIES (11) Drug induced constipation Assessment/Plan: bowel regimen started would continue senna/motility agent routinely Code(s): K59.03 - DRUG INDUCED CONSTIPATION
[2019-01-06] MEDS: APIXABAN 5 MG TABLET PO SCH ×2 (17:46→21:24)
[2019-01-06] MEDS: ONDANSETRON 4 MG/2 ML VIAL IVPUSH PRN (19:15)
[2019-01-06] MEDS: QUEtiapine FUMARATE 100 MG TABLET (FP) PO SCH (21:24)
[2019-01-06] MEDS: LIDOCAINE PATCH REMOVAL MC SCH ×2 (21:24)
[2019-01-06] MEDS: SENNOSIDES 8.6MG TABLET (FP) PO SCH (21:25)
[2019-01-06] MEDS: ZOLPIDEM TARTRATE 5 MG TABLET PO PRN (21:27)
--- NOTE | 2019-01-06 22:42 | CONSULT ---
Consult Consult Specialty:: Heme Referred by:: Dr. Rodriguez Reason for Consultation:: PE - History of Present Illness Chief Complaint: Abdominal pain History of Present Illness: 57F with BMI 43, HTN, CHF (EF 30-35%), CKD, chronic knee pain on opioids, and hx PE admitted with abdominal pain 2/2 cholelithiasis without cholecystitis. In 05/2018, pt presented with shortness of breath. CT showed possible small subsegmental PE in RUL. No LE doppler at the time. Also had newly diagnosed dilated non-ischemic cardiomyopathy with EF 15%. Started on BB, ACEI, Lasix and Eliquis. Pt denies surgery, travel, trauma or immobility preceding the 2018 PE. No prior hx of clots and no family hx of thrombosis. Had not been on any hormonal therapies. Reports normal mammo about a year ago but never had colonoscopy. Has chronic anemia with low-normal MCV. Denies SOB or chest pain. Currently mobility is significantly limited by knee pain. Hopes to undergo TKR. LE doppler negative on this admission. On UFH for possible cholecystectomy. - Past Medical History Cardio/Vascular: Yes: CHF, HTN. No: Deep Vein Thrombosis (pt denies) Pulmonary: Yes: Pulmonary Embolus (May 2018 - on Eliquis) Gastrointestinal: Yes: Constipation, GERD Renal/: Yes: Renal Inusuff ...LMP: 09/23/13 ...: No Psych: Yes: Depression, Other (chronic opioid use) Musculoskeletal: Yes: Chronic low back pain, Osteoarthritis (left knee pain requiring replacement) Endocrine: Yes: Diabetes Mellitus ("they told me I have it, but don't need meds anymore") - Past Surgical History Past Surgical History: Yes: None Additional Surgical History: cardiac cath 05/24 - NO stents - Alcohol/Substance Use Hx Alcohol Use: Yes (rarely) History of Substance Use: reports: Prescription (chronic use Percocet, under care of pain management doctors) - Smoking History Smoking history: Never smoked (smoked transiently when younger) Have you smoked in the past 12 months: No - Social History ADL: Independent (usually) Home Medications - Allergies Allergies/Adverse Reactions: Allergies Allergy/AdvReac Type Severity Reaction Status Date / Time No Known Allergies Allergy Verified 01/03/19 08:48 - Home Medications Home Medications: Ambulatory Orders Carvedilol [Coreg] 25 mg PO BID 08/03/17 Cyclobenzaprine HCl 10 mg PO DAILY 08/04/17 Oxycodone HCl/Acetaminophen [Oxycodone-Acetaminophen 10-325] 1 each PO Q8H PRN MDD 3/day 08/04/17 Quetiapine Fumarate [Seroquel -] 200 mg PO HS 08/04/17 Venlafaxine HCl ER [Effexor Xr -] 75 mg PO TID 01/12/18 Zolpidem Tartrate [Ambien] 10 mg PO HS 01/12/18 Apixaban [Eliquis -] 5 mg PO BID 01/03/19 Furosemide [Lasix -] 40 mg PO BID 01/03/19 Gabapentin [Neurontin -] 400 mg PO Q8H 01/03/19 Lisinopril [Zestril] 2.5 mg PO DAILY 01/03/19 Ranitidine [Zantac -] 150 mg PO BID 01/03/19 Spironolactone [Aldactone] 25 mg PO DAILY 01/03/19 Family Disease History - Family Disease History Family Disease History: Heart Disease: Father, Mother (emphysema/smoker, HTN, MIs), Brother (IA last month at 49), Other: Mother Other Family History: no cancer Review of Systems - Review of Systems Constitutional: reports: No Symptoms Eyes: reports: No Symptoms Cardiovascular: reports: Shortness of Breath (on exertion) Respiratory: denies: Cough Gastrointestinal: reports: Abdominal Pain. denies: Diarrhea Hematology/Lymphatic: reports: No Symptoms Physical Exam Vital Signs: Vital Signs Temperature 98.4 F 01/06/19 18:00 Pulse Rate 82 01/06/19 18:00 Respiratory Rate 18 01/06/19 18:00 Blood Pressure 128/58 L 01/06/19 18:00 O2 Sat by Pulse Oximetry (%) 97 01/06/19 09:00 Constitutional: Yes: Obese Eyes: Yes: Conjunctiva Clear Neck: No: Lymphadenopathy Cardiovascular: Yes: Regular Rate and Rhythm Gastrointestinal: Yes: Soft, Tenderness (mild). No: Distention Edema: No Labs: CBC, BMP 01/06/19 09:10 01/06/19 09:10 Imaging - Results Cat Scan: Report Reviewed Ultrasound: Report Reviewed Assessment/Plan 57F with BMI 43, HTN, CHF (EF 30-35%), CKD, chronic knee pain on opioids, and hx of likely unprovoked, small, subsegmental PE in 05/2018, on Eliquis 5 mg BID , admitted with abdominal pain 2/2 cholelithiasis. On UFH for ?surgery Small subsegmental PE but significant risk factors for recurrence -- morbid obesity, immobilization. Would pursue thrombophilia w/u (protein C/S, ATIII, FVL, prothrombin gene mutatioon, APLA panel) given unprovoked event as may help determine risk of recurrence. Antithrombin may be decreased on heparin but if normal, will r/o deficiency. If work-up is negative, would use outpatient d-dimer for futher risk stratification Ordered iron studies, b12, folate for eval of anemia; needs colonoscopy when at baseline. As it has been >6 mo since acute PE, this would not preclude surgery, including knee replacement
[2019-01-07] MEDS: oxyCODONE HCL 5 MG TABLET PO PRN ×2 (04:11→14:03)
[2019-01-07] MEDS: ACETAMINOPHEN 325 MG TABLET (FP) PO PRN ×2 (04:12→14:04)
[2019-01-07] MEDS: GABAPENTIN 400 MG CAPSULE (FP) PO SCH ×2 (06:29→13:40)
[2019-01-07] MEDS: VENLAFAXINE HCL 75 MG TABLET PO SCH ×2 (06:29→13:40)
[2019-01-07] MEDS: INSULIN SLIDING SCALE (NOVOLOG) 1 VIAL SQ SCH ×3 (06:31→16:18)
[2019-01-07] MEDS: DOCUSATE SODIUM 100 MG CAPSULE (FP) PO SCH ×2 (06:31→13:40)
[2019-01-07] MEDS: ONDANSETRON 4 MG/2 ML VIAL IVPUSH PRN (06:37)
[2019-01-07] MEDS ORDERED: PT OWN MED DRAWER 7, Y5N ONE (09:03)
[2019-01-07] MEDS: CYCLOBENZAPRINE HCL 10 MG TABLET (FP) PO SCH (09:04)
[2019-01-07] MEDS: APIXABAN 5 MG TABLET PO SCH (09:05)
[2019-01-07] MEDS: CARVEDILOL 25 MG TABLET (FP) PO SCH (09:05)
[2019-01-07] MEDS: LIDOCAINE 5% TOPICAL PATCH TP SCH (09:05)
[2019-01-07] MEDS: RANITIDINE HCL 150 MG TABLET (FP) PO SCH (09:05)
[2019-01-07] MEDS: POLYETHYLENE GLYCOL 3350 119 GM BTL PO SCH (09:07)
--- NOTE | 2019-01-07 11:07 | PN ---
Progress Note, Physician Chief Complaint: abd pain History of Present Illness: no sob, orthopnea no leg swelling no cp, palpit - Current Medication List Current Medications: Active Medications Acetaminophen (Tylenol -) 325 mg PO Q8H PRN PRN Reason: PAIN LEVEL 6-10 Last Admin: 01/07/19 04:12 Dose: 325 mg Apixaban (Eliquis -) 5 mg PO BID [facility] Last Admin: 01/07/19 09:05 Dose: 5 mg Carvedilol (Coreg -) 25 mg PO BID [facility] Last Admin: 01/07/19 09:05 Dose: 25 mg Cyclobenzaprine HCl (Flexeril -) 10 mg PO DAILY [facility] Last Admin: 01/07/19 09:04 Dose: 10 mg Docusate Sodium (Colace -) 100 mg PO TID [facility] Last Admin: 01/07/19 06:31 Dose: Not Given Gabapentin (Neurontin -) 400 mg PO TID [facility] Last Admin: 01/07/19 06:29 Dose: 400 mg Insulin Aspart (Novolog Vial Sliding Scale -) 1 vial SQ [facility]; Protocol Last Admin: 01/07/19 06:31 Dose: Not Given Lidocaine (Lidoderm Patch -) 2 patch TP DAILY [facility] Last Admin: 01/07/19 09:05 Dose: 2 patch Miscellaneous (Lidoderm Patch Removal) 1 each MC DAILY@2200 [facility] Last Admin: 01/06/19 21:24 Dose: 1 each Miscellaneous (Lidoderm Patch Removal) 1 each MC DAILY@2200 [facility] Last Admin: 01/06/19 21:24 Dose: 1 each Ondansetron HCl (Zofran Injection) 4 mg IVPUSH Q6H PRN PRN Reason: NAUSEA Last Admin: 01/07/19 06:37 Dose: 4 mg Oxycodone HCl (Roxicodone -) 10 mg PO Q6H PRN PRN Reason: PAIN LEVEL 6-10 Last Admin: 01/07/19 04:11 Dose: 10 mg Polyethylene Glycol (Miralax (For Daily Use) -) 17 gm PO DAILY [facility] Last Admin: 01/07/19 09:07 Dose: 17 grams Quetiapine Fumarate (Seroquel -) 200 mg PO HS [facility] Last Admin: 01/06/19 21:24 Dose: 200 mg Ranitidine HCl (Zantac -) 150 mg PO BID [facility] Last Admin: 01/07/19 09:05 Dose: 150 mg Senna (Senna -) 2 tab PO HS [facility] Last Admin: 01/06/19 21:25 Dose: Not Given Venlafaxine HCl (Effexor -) 75 mg PO TID [facility] Last Admin: 01/07/19 06:29 Dose: 75 mg Zolpidem Tartrate (Ambien -) 10 mg PO HS PRN PRN Reason: INSOMNIA Last Admin: 01/06/19 21:27 Dose: 10 mg - Objective Vital Signs: Vital Signs Temperature 98.4 F 01/07/19 06:00 Pulse Rate 79 01/07/19 06:00 Respiratory Rate 20 01/07/19 06:00 Blood Pressure 154/99 01/07/19 06:00 O2 Sat by Pulse Oximetry (%) 96 01/06/19 21:00 Constitutional: Yes: No Distress, Calm, Obese Cardiovascular: Yes: Regular Rate and Rhythm, S1, S2. No: JVD, Gallop, Murmur Respiratory: Yes: Regular, CTA Bilaterally. No: Accessory Muscle Use, Rales, Wheezes Extremities: No: Cold Edema: No Neurological: Yes: Alert, Oriented Psychiatric: No: Agitated Labs: INR, PTT INR 1.21 (0.83-1.09) H 01/04/19 05:30 Assessment/Plan tele: NSR echo 01/04/19: severe global LV hypo, EF 30-35%. RV nl. mild MR. IMP: 1. Cholelithiasis, biliary colic, tolerating diet 2. Non-ischemic CM 3. History of pulmonary embolism--on Eliquis 4. HTN--bp controlled 5. Morbid obesity REC: -As per surgery note, no plans for surgery this admission, switched back to Eliquis. -rec duration of AC be determined by pulmonary (started in 05/24 for acute PE)-- ? 6 mo is adequate, in which case can stop now. d/w'd hospitalist [facility] -Cont home carvedilol. resume home lisinopril dose. Holding lasix as he appears euvolemic today, Creat 0.7 -Surgery following. -D/C TELE
[2019-01-07 11:14] LABS: ALBUMIN 3.1 g/dl (3.4-5.0); BILIRUBIN,TOTAL 0.2 mg/dL (0.2-1); CREATININE 1.4 mg/dL (0.55-1.3); MAGNESIUM 2.3 mg/dL (1.8-2.4); POTASSIUM 4.4 mmol/L (3.5-5.1); TOT PROT 6.8 g/dl (6.4-8.2)
[2019-01-07] MEDS ORDERED: LISINOPRIL 5 MG TABLET (FP) PO SCH (11:15)
[2019-01-07 11:55] LABS: BASO % 0.8 % (0-2.0); EOS % 5.9 % (0-4.5); HEMATOCRIT 29.1 % (32.4-45.2); HEMOGLOBIN 9.1 GM/dL (10.7-15.3); LYMPH % 27.7 % (8-40); MCHC 31.3 g/dl (32.0-36.0); MEAN CELL VOLUME 83.2 fl (80-96); MEAN PLT VOLUME 7.6 fl (7.5-11.1); MONO % 12.2 % (3.8-10.2); NEUT % 53.4 % (42.8-82.8); PLATELET COUNT 359 K/MM3 (134-434); RDW 14.5 % (11.6-15.6); WHITE BLOOD COUNT 4.4 K/mm3 (4.0-10.0)
--- NOTE | 2019-01-07 12:09 | PN ---
Progress Note, Physician History of Present Illness: Pt admitted with epigastric pain/tenderness, also RUQ tenderness, enlarged gallbladder with multiple large stones on imaging without signs of cholecystitis. Echo showed EF 30-35% with severely reduced LV function. Pt back on Eliquis instead of heparin drip for PE from 05/24. She reports subxiphoid pain with eating, but overall feels better with minimal pain now. Seen and examined in bed. Had BM yesterday again, pain is less after that as well. Still some occasional nausea, no vomiting. Hematology consult noted - pt DOES have family history of thrombosis: younger brother (now age 50) had blood clot in his lungs, per pt She has been off heparin drip for about 2d, back on Eliquis. PE in May seemed unprovoked. Per discussion with heme previously, may need to be on anticoagulation indefinitely because of unprovoked nature. - Current Medication List Current Medications: Active Medications Acetaminophen (Tylenol -) 325 mg PO Q8H PRN PRN Reason: PAIN LEVEL 6-10 Last Admin: 01/07/19 04:12 Dose: 325 mg Apixaban (Eliquis -) 5 mg PO BID [facility] Last Admin: 01/07/19 09:05 Dose: 5 mg Carvedilol (Coreg -) 25 mg PO BID [facility] Last Admin: 01/07/19 09:05 Dose: 25 mg Cyclobenzaprine HCl (Flexeril -) 10 mg PO DAILY [facility] Last Admin: 01/07/19 09:04 Dose: 10 mg Docusate Sodium (Colace -) 100 mg PO TID [facility] Last Admin: 01/07/19 06:31 Dose: Not Given Gabapentin (Neurontin -) 400 mg PO TID [facility] Last Admin: 01/07/19 06:29 Dose: 400 mg Insulin Aspart (Novolog Vial Sliding Scale -) 1 vial SQ ACHS [facility]; Protocol Last Admin: 01/07/19 11:47 Dose: Not Given Lidocaine (Lidoderm Patch -) 2 patch TP DAILY [facility] Last Admin: 01/07/19 09:05 Dose: 2 patch Lisinopril (Prinivil) 2.5 mg PO DAILY [facility] Last Admin: 01/07/19 11:45 Dose: 2.5 mg Miscellaneous (Lidoderm Patch Removal) 1 each MC DAILY@2200 [facility] Last Admin: 01/06/19 21:24 Dose: 1 each Miscellaneous (Lidoderm Patch Removal) 1 each MC DAILY@2199 [facility] Last Admin: 01/06/19 21:24 Dose: 1 each Ondansetron HCl (Zofran Injection) 4 mg IVPUSH Q6H PRN PRN Reason: NAUSEA Last Admin: 01/07/19 06:37 Dose: 4 mg Oxycodone HCl (Roxicodone -) 10 mg PO Q6H PRN PRN Reason: PAIN LEVEL 6-10 Last Admin: 01/07/19 04:11 Dose: 10 mg Polyethylene Glycol (Miralax (For Daily Use) -) 17 gm PO DAILY [facility] Last Admin: 01/07/19 09:07 Dose: 17 grams Quetiapine Fumarate (Seroquel -) 200 mg PO HS [facility] Last Admin: 01/06/19 21:24 Dose: 200 mg Ranitidine HCl (Zantac -) 150 mg PO BID [facility] Last Admin: 01/07/19 09:05 Dose: 150 mg Senna (Senna -) 2 tab PO [facility] Last Admin: 01/06/19 21:25 Dose: Not Given Venlafaxine HCl (Effexor -) 75 mg PO TID [facility] Last Admin: 01/07/19 06:29 Dose: 75 mg Zolpidem Tartrate (Ambien -) 10 mg PO HS PRN PRN Reason: INSOMNIA Last Admin: 01/06/19 21:27 Dose: 10 mg - Objective Vital Signs: Vital Signs Temperature 98.4 F 01/07/19 06:00 Pulse Rate 79 01/07/19 06:00 Respiratory Rate 19 01/07/19 09:00 Blood Pressure 154/99 01/07/19 06:00 O2 Sat by Pulse Oximetry (%) 97 01/07/19 09:00 Constitutional: Yes: No Distress, Calm, Obese Eyes: Yes: Conjunctiva Clear, EOM Intact HENT: Yes: Atraumatic, Normocephalic Gastrointestinal: Yes: Soft, Abdomen, Obese, Tenderness, Epigastrium (mild/ minimal). No: Tenderness, Rebound Extremities: No: Cool, Cyanosis Integumentary: No: Jaundice, Rash Neurological: Yes: Alert, Oriented Labs: CBC, BMP 01/07/19 07:51 rest of labs pending today Problem List - Problems (1) Calculus of gallbladder without cholecystitis without obstruction Assessment/Plan: given overdistended gallbladder with large stones, pain could be secondary to biliary colic, but has improved significantly with multiple BMs, and she is tolerating low-fat diet subxiphoid pain with eating - ? more GERD than biliary? still on PPI no acute indication for surgical intervention back on eliquis given echo findings and other comorbidities, if cholecystectomy ultimately seems indicated or desired, would refer for surgical evaluation at tertiary center with more cardiac capabilities Code(s): K80.20 - CALCULUS OF GALLBLADDER W/O CHOLECYSTITIS W/O OBSTRUCTION (2) Epigastric pain Assessment/Plan: improved though still with some subxiphoid pain with eating Code(s): R10.13 - EPIGASTRIC PAIN (3) History of pulmonary embolism Assessment/Plan: from May 2018 cause - unprovoked? may need indefinite anticoagulation back on eliquis hematology consult noted - see hpi see above Code(s): Z86.711 - PERSONAL HISTORY OF PULMONARY EMBOLISM (4) Anticoagulant long-term use Code(s): Z79.01 - SENIOR CARE (CURRENT) USE OF ANTICOAGULANTS (5) Chronic systolic CHF (congestive heart failure), NYHA class 3 Assessment/Plan: cardiology following echo shows severely reduced EF, LV fxn Code(s): I50.22 - CHRONIC SYSTOLIC (CONGESTIVE) HEART FAILURE (6) Arthritis of left knee Assessment/Plan: awaiting left knee replacement PT per primary team Code(s): M17.12 - UNILATERAL PRIMARY OSTEOARTHRITIS, LEFT KNEE (7) Chronic pain Code(s): G89.29 - OTHER CHRONIC PAIN Qualifiers: Chronic pain type: chronic pain syndrome Qualified Code(s): G89.4 - Chronic pain syndrome (8) Essential hypertension Code(s): I10 - ESSENTIAL (PRIMARY) HYPERTENSION (9) GERD (gastroesophageal reflux disease) Assessment/Plan: cont home med Code(s): K21.9 - GASTRO-ESOPHAGEAL REFLUX DISEASE WITHOUT ESOPHAGITIS Qualifiers: Esophagitis presence: without esophagitis Qualified Code(s): K21.9 - Gastro -esophageal reflux disease without esophagitis (10) Morbid obesity Code(s): E66.01 - MORBID (SEVERE) OBESITY DUE TO EXCESS CALORIES (11) Drug induced constipation Assessment/Plan: bowel regimen started would continue senna/motility agent routinely Code(s): K59.03 - DRUG INDUCED CONSTIPATION
--- NOTE | 2019-01-07 15:01 | DS ---
Physical Exam: SUBJECTIVE: Patient seen and examined at the bedside. for discharge to rehab today. OBJECTIVE: Patient is a 58 year old female with a significant past medical history of GERD , chronic opiod use for left knee pain (pending knee replacement), depression, HTN, CHF (last EF documented EF<15%), PE and Cardiac cath 05/2018 (on eliquis). She presents to the ED on 01/04/2019 with nausea, multiple episodes of nonbloody, nonbilious vomiting, and epigastric pain x 1 day. pt unable to keep food down, denies any sick contacts, eating new foods. Last BM 2-3 days ago, pt takes senna for constipation. On admission, patient had severe abdominal pain and was admitted to telemetry due to severe CHF. Vital Signs Period Temp Pulse Resp BP Sys/Vilchis Pulse Ox Last 24 Hr 98.4 F-98.7 F 75-82 18-20 128-154/58-99 96-97 PHYSICAL EXAM GENERAL: The patient is awake, alert, and fully oriented, in no acute distress. HEAD: Normal with no signs of trauma. EYES: PERRL, extraocular movements intact, sclera anicteric, conjunctiva clear. ENT: Ears normal, nares patent, oropharynx clear without exudates, moist mucous membranes. NECK: Trachea midline, full range of motion, supple. LUNGS: Breath sounds equal, clear to auscultation bilaterally, no wheezes, no crackles, no accessory muscle use. HEART: Regular rate and rhythm, S1, S2 without murmur, rub or gallop. ABDOMEN: Soft, nontender, nondistended, normoactive bowel sounds, no guarding, no rebound, no hepatosplenomegaly, no masses. EXTREMITIES: left knee pain, discomfort. NEUROLOGICAL: Cranial nerves II through XII grossly intact. Normal speech, gait not observed. PSYCH: Normal mood, normal affect. SKIN: Warm, dry, normal turgor, no rashes or lesions noted. LABS Laboratory Results - last 24 hr 01/06/19 01/06/19 01/07/19 16:54 21:23 07:51 WBC 4.4 RBC 3.50 L Hgb 9.1 L Hct 29.1 L MCV 83.2 MCH 26.0 MCHC 31.3 L RDW 14.5 Plt Count 359 MPV 7.6 Absolute Neuts (auto) 2.4 Neutrophils % 53.4 Lymphocytes % 27.7 Monocytes % 12.2 H Eosinophils % 5.9 H Basophils % 0.8 Nucleated RBC % 0 Retic Count Sodium Potassium Chloride Carbon Dioxide Anion Gap BUN Creatinine Est GFR (CKD-EPI)AfAm Est GFR (CKD-EPI)NonAf POC Glucometer 101 99 Random Glucose Calcium Magnesium Ferritin Total Bilirubin AST ALT Alkaline Phosphatase Total Protein Albumin Vitamin B12 Serum Folate 01/07/19 01/07/19 01/07/19 07:51 07:51 11:28 WBC RBC Hgb Hct MCV MCH MCHC RDW Plt Count MPV Absolute Neuts (auto) Neutrophils % Lymphocytes % Monocytes % Eosinophils % Basophils % Nucleated RBC % Retic Count 1.86 H D Sodium 140 Potassium 4.4 Chloride 105 Carbon Dioxide 29 Anion Gap 7 L BUN 18 Creatinine 1.4 H Est GFR (CKD-EPI)AfAm 47.55 Est GFR (CKD-EPI)NonAf 41.02 POC Glucometer 130 Random Glucose 88 Calcium 9.0 Magnesium 2.3 Ferritin 30.8 Total Bilirubin 0.2 AST 14 L ALT 39 Alkaline Phosphatase 72 Total Protein 6.8 Albumin 3.1 L Vitamin B12 879 Serum Folate 8 HOSPITAL COURSE: Date of Admission:01/03/19 Date of Discharge: 01/07/19 Patient is a 58 year old female with a significant past medical history of GERD , chronic opiod use for left knee pain (pending knee replacement), depression, HTN, CHF (last EF documented EF<15%), PE and Cardiac cath 05/2018 (on eliquis). She presents to the ED on 01/04/2019 with nausea, multiple episodes of nonbloody, nonbilious vomiting, and epigastric pain x 1 day. pt unable to keep food down, denies any sick contacts, eating new foods. Last BM 2-3 days ago, pt takes senna for constipation. On admission, patient had severe abdominal pain and was admitted to telemetry due to severe CHF. HOSPITAL COURSE BY PROBLEM LIST Chronic systolic CHF (congestive heart failure), NYHA class 3 Assessment/Plan: Patient with history of systolic Chf with EF 30% on most recent echo 01/04/2019. She is on Lasix and Coreq. lasix held by cardiology. She is currently without any symptoms of volume overload and her weights have increased by 2kg since admission. She is tolerating room air hold lasix until she has repeat labs and kidney function is stable. Epigastric pain Assessment/Plan: Acute Cholelithiasis with overdistended gallbladder. pain management with oxycodone and on a with bowel regimen Surgery following and diet has been advanced. Patient has tolerated clears and now on low cholesterol, low salt diet and is tolerating diet. per surgery, no surgery indicated at this time. History of pulmonary embolism Assessment/Plan: Unsure of PE was provoked vs. unprovoked event, but her brother is on Eliquis for PE as well. Has been on Eliquis and has not seen a felt carbonizer as an outpatient. If she need surgery in the future (both for left knee and gallbladder surgery), it is best for her to be followed by heme starting during her stay here then as an outpatient. She is back on Eliquis. Arthritis of left knee Assessment/Plan: lidoderm patch x 2 on left knee. patient for ortho follow up as an outpatient for possible knee surgery. severe pain of left knee, for rehab. DM2 (diabetes mellitus, type 2) monitor bgms. on novolog ss. hmga1c 6.0. monitor DISCHARGE PLAN: DISCHARGE TO [facility] FOR REHAB OF HER LEFT KNEE Minutes to complete discharge: 60 Discharge Summary Reason For Visit: INTRACTABLE PAIN Current Active Problems Anticoagulant long-term use (Acute) Calculus of gallbladder without cholecystitis without obstruction (Acute) Chronic systolic CHF (congestive heart failure), NYHA class 3 (Acute) Drug induced constipation (Acute) Epigastric pain (Acute) Gall stones (Acute) History of pulmonary embolism (Acute) Intractable pain (Acute) Morbid obesity due to excess calories (Acute) Nausea & vomiting (Acute) Prophylactic measure (Acute) Condition: Stable - Instructions Diet, Activity, Other Instructions: Ms Greenwood: You will be discharged to rehab today. Here are our recommendations Epigastric pain: You were found to have a overdistended gallbladder with large stones. Your pain has increased significantly and you tolerated your diet. Continue your bowel regimen and follow up with your plc technician specialist by calling and making an appointment. Pulmonary embolism: continue the eliquis, Please follow up with the felt carbonizer (information enclosed) to determine how long you will need to be on the Eliquis. The felt carbonizer is doing blood studies on you and they are still pending. You will need to call her office for an appointment. Please continue taking the Eliquis and follow up with hematology within 1 week. Continue the following medications as outlined on your discharge instructions. Do not take the lasix until you are seen by your regulatory and compliance technician. Continue carvedilol, lisinopril dose. Hold Lasix until your lab work is repeated by your primary care doctor or regulatory and compliance technician. Thank you for allowing us to care for you. Referrals: Viktoria Martinez MD [Staff Physician] - (hematology) Disposition: LONG TERM FACILITY - Home Medications Comprehensive Discharge Medication List: Ambulatory Orders Carvedilol [Coreg] 25 mg PO BID 08/03/17 Cyclobenzaprine HCl 10 mg PO DAILY 08/04/17 Oxycodone HCl/Acetaminophen [Oxycodone-Acetaminophen 10-325] 1 each PO Q8H PRN MDD 3/day 08/04/17 Quetiapine Fumarate [Seroquel -] 200 mg PO HS 08/04/17 Venlafaxine HCl ER [Effexor Xr -] 75 mg PO TID 01/12/18 Zolpidem Tartrate [Ambien] 10 mg PO HS 01/12/18 Apixaban [Eliquis -] 5 mg PO BID 01/03/19 Gabapentin [Neurontin -] 400 mg PO Q8H 01/03/19 Lisinopril [Zestril] 2.5 mg PO DAILY 01/03/19 Ranitidine [Zantac -] 150 mg PO BID 01/03/19 Spironolactone [Aldactone -] 25 mg PO DAILY 01/03/19 Apixaban [Eliquis -] 5 mg PO BID tablet 01/07/19 Docusate Sodium [Colace -] 100 mg PO TID capsule 01/07/19 Insulin Sliding Scale [Novolog Vial Sliding Scale -] 1 vial SQ ACHS units 01/07 Lidocaine 5% Patch [Lidoderm -] 2 patch TP DAILY patch 01/07/19 Lidocaine Patch Removal [Lidoderm Patch Removal] 1 each MC DAILY@2200 each 10/23 Lidocaine Patch Removal [Lidoderm Patch Removal] 1 each MC DAILY@2200 each 10/23 Lisinopril [Prinivil] 2.5 mg PO DAILY tablet 01/07/19 Polyethylene Glycol 3350 [Miralax 119 gm Btl -] 17 gm PO DAILY bottle 01/07/19 Sennosides [Senna -] 2 tab PO HS tablet 01/07/19 Problem List - Problems (1) Chronic systolic CHF (congestive heart failure), NYHA class 3 Code(s): I50.22 - CHRONIC SYSTOLIC (CONGESTIVE) HEART FAILURE (2) Epigastric pain Code(s): R10.13 - EPIGASTRIC PAIN (3) Gall stones Code(s): K80.20 - CALCULUS OF GALLBLADDER W/O CHOLECYSTITIS W/O OBSTRUCTION (4) History of pulmonary embolism Code(s): Z86.711 - PERSONAL HISTORY OF PULMONARY EMBOLISM (5) Arthritis of left knee Code(s): M17.12 - UNILATERAL PRIMARY OSTEOARTHRITIS, LEFT KNEE (6) DM2 (diabetes mellitus, type 2) Code(s): E11.9 - TYPE 2 DIABETES MELLITUS WITHOUT COMPLICATIONS Qualifiers: Diabetes mellitus jail insulin use: without jail use Diabetes mellitus complication status: without complication Qualified Code(s): E11.9 - Type 2 diabetes mellitus without complications (7) Morbid obesity due to excess calories Code(s): E66.01 - MORBID (SEVERE) OBESITY DUE TO EXCESS CALORIES (8) Prophylactic measure Code(s): Z29.9 - ENCOUNTER FOR PROPHYLACTIC MEASURES, UNSPECIFIED This patient is new to me today: Yes Date on this admission: 01/07/19 Emergency Visit: No Critical Care patient: No - Discharge Referral Referred to [facility] No
[2019-01-07 18:31] VITALS: BP 131/85; PULSE 74; TEMP 97.4
== END 2019-01-07 18:32 | DRG 445 ==
LOC: JER 08:43 → JERBED 19:11 → OBSVTOIN 19:20 → J4S 20:38
PROVIDERS: ADMIT Internal Medicine; ATTEND Nurse Practitioner Family
DX: K80.70 Calculus of gallbladder and bile duct without cholecystitis without obstruction (principal); I50.22 Chronic systolic (congestive) heart failure; Z68.41 Body mass index [BMI] 40.0-44.9, adult; I13.0 Hypertensive heart and chronic kidney disease with heart failure and stage 1 through stage 4 chronic kidney disease, or unspecified chronic kidney disease; I42.9 Cardiomyopathy, unspecified; E66.01 Morbid (severe) obesity due to excess calories; K59.03 Drug induced constipation; E11.9 Type 2 diabetes mellitus without complications; M17.12 Unilateral primary osteoarthritis, left knee; F11.10 Opioid abuse, uncomplicated; F32.9 Major depressive disorder, single episode, unspecified; Z86.711 Personal history of pulmonary embolism; Z95.5 Presence of coronary angioplasty implant and graft; Z79.01 Long term (current) use of anticoagulants; K21.9 Gastro-esophageal reflux disease without esophagitis; K59.09 Other constipation; E66.9 Obesity, unspecified; G89.29 Other chronic pain; N83.202 Unspecified ovarian cyst, left side; G47.00 Insomnia, unspecified
CPT/HCPCS: 36415; 71045-TC-FY; 74176-TC; 76705-TC; 80053; 81003; 81240; 81241; 82550; 82553; 82607; 82728; 82746; 82962; 83036; 83540; 83605; 83690; 83735; 83880; 84100; 84466; 84484; 85025; 85027; 85044; 85300; 85303; 85610; 85730; 87086; 93005; 93010; 93306-TC; 93970-TC; 97116-GP; 97162-GP; 99284-25; G0378; J1644; J7030

== ENCOUNTER 2019-04-19 16:40 | Emergency (ER) | payer OTHER ==
[2019-04-19 16:58] VITALS: BP 173/105; PULSE 92; TEMP 99; BMI 41.9
--- NOTE | 2019-04-19 17:03 | PDOC ---
Rapid Medical Evaluation Chief Complaint: Pain, Acute Time Seen by Provider: 04/19/19 16:51 Medical Evaluation: Allergies Allergy/AdvReac Type Severity Reaction Status Date / Time No Known Allergies Allergy Verified 04/19/19 16:53 Vital Signs Temp Pulse Resp BP Pulse Ox 99 F 92 H 22 H 173/105 H 99 04/19/19 16:45 04/19/19 16:45 04/19/19 16:45 04/19/19 16:45 04/19/19 16:45 04/19/19 17:02 Patient c/o: tripped yesterday falling forward landing on knee and head, on eliquis Patient on brief exam: no visable hematoma, vss, perrl Patient ordered for: labs head ct and knee xray patient to proceed to the ED Discharge Disposition - Diagnosis Closed head injury - Discharge Dispostion Last Admission D/C Date: 01/07/19 - Referrals Referrals: Jessy Elias [Primary Care Provider] - - Patient Instructions - Post Discharge Activity
--- NOTE | 2019-04-19 18:03 | PDOC ---
*Physical Exam - Vital Signs Last Vital Signs Temp Pulse Resp BP Pulse Ox 99 F 92 H 22 H 173/105 H 99 04/19/19 16:45 04/19/19 16:45 04/19/19 16:45 04/19/19 16:45 04/19/19 16:45 ED Treatment Course - Medications Given in the ED: ED Medications Discontinued Medications Generic Name Dose Route Start Last Admin Trade Name Freq PRN Reason Stop Dose Admin Oxycodone/Acetaminophen 2 combo 04/19/19 17:25 04/19/19 17:33 Percocet 5/325 - PO 04/19/19 17:26 2 combo ONCE ONE Administration Medical Decision Making - Medical Decision Making 04/19/19 17:53 58 yo F presenting s/p trip and fall yesterday landing on knee and head Pt is currently on eliquis Pt seen by Midlevel Provider under my direct supervision Pt interviewed and examined Ancillary studies pending Pt signed out to overnight team I agree with plan as outlined by Midlevel Provider 04/19/19 18:03 *DC/Admit/Observation/Transfer Diagnosis at time of Disposition: Left knee injury Closed head injury Qualifiers: Encounter type: initial encounter Qualified Code(s): S09.90XA - Unspecified injury of head, initial encounter - Discharge Dispostion Disposition: HOME Condition at time of disposition: Stable - Referrals Referrals: Jessy Elias [Primary Care Provider] - - Patient Instructions Printed Discharge Instructions: DI for Post-traumatic Headache, DI for Knee Pain Additional Instructions: Thank you for choosing [facility]. It was a pleasure taking care of you. Keep shawna-wrap along knee for comfort Apply ice to help decrease swelling Follow-up with your regular doctor and orthopedics Return to the Emergency Department if your symptoms worsen or persist or have other concerning symptoms. - Post Discharge Activity
--- NOTE | 2019-04-19 18:14 | PDOC ---
History of Present Illness - General Chief Complaint: Pain, Acute Stated Complaint: BILATERAL/KNEE PAIN/DIF/BREATHING Time Seen by Provider: 04/19/19 16:51 History Source: Patient Exam Limitations: No Limitations Past History - Past Medical History Allergies/Adverse Reactions: Allergies Allergy/AdvReac Type Severity Reaction Status Date / Time No Known Allergies Allergy Verified 04/19/19 16:53 Home Medications: Ambulatory Orders Carvedilol [Coreg] 25 mg PO BID 08/03/17 Cyclobenzaprine HCl 10 mg PO DAILY 08/04/17 Oxycodone HCl/Acetaminophen [Oxycodone-Acetaminophen 10-325] 1 each PO Q8H PRN MDD 3/day 08/04/17 Quetiapine Fumarate [Seroquel -] 200 mg PO HS 08/04/17 Venlafaxine HCl ER [Effexor Xr -] 75 mg PO TID 01/12/18 Zolpidem Tartrate [Ambien] 10 mg PO HS 01/12/18 Apixaban [Eliquis -] 5 mg PO BID 01/03/19 Gabapentin [Neurontin -] 400 mg PO Q8H 01/03/19 Lisinopril [Zestril] 2.5 mg PO DAILY 01/03/19 Ranitidine [Zantac -] 150 mg PO BID 01/03/19 Spironolactone [Aldactone -] 25 mg PO DAILY 01/03/19 Apixaban [Eliquis -] 5 mg PO BID tablet 01/07/19 Docusate Sodium [Colace -] 100 mg PO TID capsule 01/07/19 Insulin Sliding Scale [Novolog Vial Sliding Scale -] 1 vial SQ ACHS units 01/07 Lidocaine 5% Patch [Lidoderm -] 2 patch TP DAILY patch 01/07/19 Lidocaine Patch Removal [Lidoderm Patch Removal] 1 each MC DAILY@2200 each 10/23 Lidocaine Patch Removal [Lidoderm Patch Removal] 1 each MC DAILY@2200 each 10/23 Lisinopril [Prinivil] 2.5 mg PO DAILY tablet 01/07/19 Polyethylene Glycol 3350 [Miralax 119 gm Btl -] 17 gm PO DAILY bottle 01/07/19 Sennosides [Senna -] 2 tab PO HS tablet 01/07/19 oxyCODONE HCL [Roxicodone -] 10 mg PO Q6H PRN tablet MDD 4 01/07/19 Anemia: No Asthma: No Cancer: No Cardiac Disorders: Yes (last EF 15%) CVA: No COPD: No CHF: Yes Dementia: No Diabetes: Yes (not on meds) GI Disorders: Yes (REFLUX) Disorders: No HTN: Yes Hypercholesterolemia: No Liver Disease: No Seizures: No Thyroid Disease: No - Immunization History Immunization Up to Date: Yes - Suicide/Smoking/Psychosocial Hx Smoking History: Never smoked Have you smoked in the past 12 months: No Cigars Per Day: 0 Hx Alcohol Use: No Drug/Substance Use Hx: No Substance Use Type: None Hx Substance Use Treatment: No Trauma Specific PMHX - Complaint Specific PMHX Arthritis: Yes (BOTH KNEES) *Physical Exam - Vital Signs Last Vital Signs Temp Pulse Resp BP Pulse Ox 99 F 92 H 22 H 173/105 H 99 04/19/19 16:45 04/19/19 16:45 04/19/19 16:45 04/19/19 16:45 04/19/19 16:45 - Physical Exam General Appearance: Yes: Obese. No: Apparent Distress HEENT: positive: EOMI, DALIA, Other (no visible head trauma/swelling noted) Neck: positive: Supple. negative: Tender midline Respiratory/Chest: positive: Lungs Clear, Normal Breath Sounds. negative: Respiratory Distress Cardiovascular: positive: Regular Rhythm, Regular Rate, S1, S2. 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 States she was trying to get to her walker and the ground was uneven and she fell, landing on all fours. States she also bumped the front of her head. Is mostly having pain in L knee. Denies LOC, cp, abd pain, vomiting, visual changes, numbness/tingling. S/P mechanical fall Plan: L knee xray, CT head, pain control 04/19/19 18:12 L knee xray with on fractures CT head negative L knee acewrapped for comfort stable for dc 04/19/19 19:04 *DC/Admit/Observation/Transfer Diagnosis at time of Disposition: Closed head injury Qualifiers: Encounter type: initial encounter Qualified Code(s): S09.90XA - Unspecified injury of head, initial encounter Left knee injury Qualifiers: Encounter type: initial encounter Qualified Code(s): S89.92XA - Unspecified injury of left lower leg, initial encounter - Discharge Dispostion Disposition: HOME Condition at time of disposition: Stable Decision to Admit order: No - Referrals Referrals: Jessy Elias [Primary Care Provider] - - Patient Instructions Printed Discharge Instructions: DI for Post-traumatic Headache, DI for Knee Pain Additional Instructions: Thank you for choosing [facility]. It was a pleasure taking care of you. Keep shawna-wrap along knee for comfort Apply ice to help decrease swelling Follow-up with your regular doctor and orthopedics Return to the Emergency Department if your symptoms worsen or persist or have other concerning symptoms. - Post Discharge Activity
== END 2019-04-19 19:16 | disposition home or self-care (01) ==
LOC: JER 16:40
DX: S09.8XXA Other specified injuries of head, initial encounter (principal); M25.562 Pain in left knee; W18.39XA Other fall on same level, initial encounter; Y93.89 Activity, other specified; Y92.89 Other specified places as the place of occurrence of the external cause; Y99.8 Other external cause status; I25.10 Atherosclerotic heart disease of native coronary artery without angina pectoris; I11.0 Hypertensive heart disease with heart failure; I50.9 Heart failure, unspecified; E11.9 Type 2 diabetes mellitus without complications; K21.9 Gastro-esophageal reflux disease without esophagitis; Z86.711 Personal history of pulmonary embolism; Z79.01 Long term (current) use of anticoagulants
CPT/HCPCS: 70450-TC; 73562-TC-LT-FY; 99281-25

== ENCOUNTER 2019-04-28 17:16 | Emergency (ER) | payer OTHER ==
[2019-04-28 17:22] VITALS: BMI 41.9
--- NOTE | 2019-04-28 19:26 | PDOC ---
Attending Attestation - Resident Resident Name: Pranav Temple - ED Attending Attestation I have performed the following: I have examined & evaluated the patient, The case was reviewed & discussed with the resident, I agree w/resident's findings & plan - HPI HPI: 04/28/19 20:21 Acute on chronic left knee pain.SHe accidentally dropped some of her percocets down the toilet and she needs a refiill; she will be seeing her doc on Mon and she needs some more. No other complaints. She has no chest pain. States that she is tachy because of the pain. - Physicial Exam PE: 04/28/19 21:22 Agree with exam. Pt is afebrile. VSS Left knee pain; arthritis; no redness; no warmth; pt is awaiting knee surg. - Medical Decision Making 04/28/19 21:24 Home with percocet and lidocaine patch today.
--- NOTE | 2019-04-28 20:15 | PDOC ---
History of Present Illness - General Chief Complaint: Pain Stated Complaint: PAIN/BREATHING PROBLEM Time Seen by Provider: 04/28/19 19:16 - History of Present Illness Initial Comments: 04/28/19 20:14 58yo morbidly obese F with multiple medical problems, including HTN, CHF, GERD, DM2, severe L knee arthritis, chronic pain on opioids, PE (05/24) on Eliquis, presented to ER with acute on chronic left knee pain, She was seen in this ED on 04/19 for left knee pain following fall. Complains that she accidentally attempted to open her bottle with shaky hands over her toilet and dropped most of them in the murky water. Is supposed to get knee replacement be can't because she's got a "slow heart rate." Past History - Past Medical History Allergies/Adverse Reactions: Allergies Allergy/AdvReac Type Severity Reaction Status Date / Time No Known Allergies Allergy Verified 04/28/19 17:22 Home Medications: Ambulatory Orders Carvedilol [Coreg] 25 mg PO BID 08/03/17 Cyclobenzaprine HCl 10 mg PO DAILY 08/04/17 Oxycodone HCl/Acetaminophen [Oxycodone-Acetaminophen 10-325] 1 each PO Q8H PRN MDD 3/day 08/04/17 Quetiapine Fumarate [Seroquel -] 200 mg PO HS 08/04/17 Venlafaxine HCl ER [Effexor Xr -] 75 mg PO TID 01/12/18 Zolpidem Tartrate [Ambien] 10 mg PO HS 01/12/18 Apixaban [Eliquis -] 5 mg PO BID 01/03/19 Gabapentin [Neurontin -] 400 mg PO Q8H 01/03/19 Lisinopril [Zestril] 2.5 mg PO DAILY 01/03/19 Ranitidine [Zantac -] 150 mg PO BID 01/03/19 Spironolactone [Aldactone -] 25 mg PO DAILY 01/03/19 Apixaban [Eliquis -] 5 mg PO BID tablet 01/07/19 Docusate Sodium [Colace -] 100 mg PO TID capsule 01/07/19 Insulin Sliding Scale [Novolog Vial Sliding Scale -] 1 vial SQ ACHS units 01/07 Lidocaine 5% Patch [Lidoderm -] 2 patch TP DAILY patch 01/07/19 Lidocaine Patch Removal [Lidoderm Patch Removal] 1 each MC DAILY@2200 each 10/23 Lidocaine Patch Removal [Lidoderm Patch Removal] 1 each MC DAILY@2200 each 10/23 Lisinopril [Prinivil] 2.5 mg PO DAILY tablet 01/07/19 Polyethylene Glycol 3350 [Miralax 119 gm Btl -] 17 gm PO DAILY bottle 01/07/19 Sennosides [Senna -] 2 tab PO HS tablet 01/07/19 oxyCODONE HCL [Roxicodone -] 10 mg PO Q6H PRN tablet MDD 4 01/07/19 Anemia: No Asthma: No Cancer: No Cardiac Disorders: Yes (last EF 15%) CVA: No COPD: No CHF: Yes Dementia: No Diabetes: Yes (not on meds) GI Disorders: Yes (REFLUX) Disorders: No HTN: Yes Hypercholesterolemia: No Liver Disease: No Seizures: No Thyroid Disease: No Other medical history: PE 2019 - Immunization History Immunization Up to Date: Yes - Suicide/Smoking/Psychosocial Hx Smoking History: Never smoked Have you smoked in the past 12 months: No Cigars Per Day: 0 Hx Alcohol Use: No Drug/Substance Use Hx: No Substance Use Type: None Hx Substance Use Treatment: No Trauma Specific PMHX - Complaint Specific PMHX Arthritis: Yes (BOTH KNEES) Review of Systems - Review of Systems Able to Perform ROS?: Yes Is the patient limited Malawian proficient: No Constitutional: No: Symptoms Reported HEENTM: No: Symptoms Reported Respiratory: No: Symptoms reported Cardiac (ROS): No: Symptoms Reported ABD/GI: No: Symptoms Reported : No: Symptoms Reported Musculoskeletal: Yes: See HPI Integumentary: No: Symptoms Reported Neurological: No: Symptoms reported *Physical Exam - Vital Signs Last Vital Signs Temp Pulse Resp BP Pulse Ox 99.6 F 109 H 18 109/85 99 04/28/19 17:17 04/28/19 17:17 04/28/19 17:17 04/28/19 17:17 04/28/19 17:17 - Physical Exam General Appearance: Yes: Appropriately Dressed, Apparent Distress, Obese HEENT: positive: EOMI, DALIA, Normal ENT Inspection Respiratory/Chest: positive: Lungs Clear, Normal Breath Sounds. negative: Chest Tender, Respiratory Distress Cardiovascular: positive: Tachycardia Gastrointestinal/Abdominal: positive: Normal Bowel Sounds, Flat, Soft. negative : Tender Extremity: positive: Other (decreased rom of the left knee, tenderness. ) Integumentary: positive: Normal Color, Dry, Warm Neurologic: positive: Fully Oriented, Alert, Normal Mood/Affect Medical Decision Making - Medical Decision Making 04/28/19 20:54 58yo morbidly obese F with multiple medical problems, including HTN, CHF, GERD, DM2, severe L knee arthritis, chronic pain on opioids, PE (05/24) on Eliquis, presented to ER with acute on chronic left knee pain, asking for a refill for her percocet prescription. Patient pain treated, ok to dc with Rx. *DC/Admit/Observation/Transfer Diagnosis at time of Disposition: Knee pain, left - Discharge Dispostion Disposition: HOME Condition at time of disposition: Improved Decision to Admit order: No - Referrals - Patient Instructions Printed Discharge Instructions: DI for Prescription Opioid Use Additional Instructions: Follow up with your orthopedic surgeon Dr. Pj Jarvis, within the next 3 days. Come abck to the emergency department for any new, worsening or concerning symptom. - Post Discharge Activity
[2019-04-28] MEDS ORDERED: LIDOCAINE 5% TOPICAL PATCH TP ONE (21:02)
[2019-04-28] MEDS ORDERED: LIDOCAINE 5% TOPICAL PATCH ONE (21:13)
[2019-04-28 21:24] VITALS: BP 102/80; PULSE 99; TEMP 98.1
[2019-04-28] MEDS ORDERED: LIDOCAINE PATCH REMOVAL MC SCH (22:00)
--- NOTE | 2019-04-29 10:28 | EKG ---
Test Reason : Blood Pressure : / mmHG Vent. Rate : 086 BPM Atrial Rate : 086 BPM P-R Int : 170 ms QRS Dur : 096 ms QT Int : 398 ms P-R-T Axes : 048 -05 -17 degrees QTc Int : 476 ms SINUS RHYTHM WITH OCCASIONAL PREMATURE VENTRICULAR COMPLEXES VOLTAGE CRITERIA FOR LEFT VENTRICULAR HYPERTROPHY ABNORMAL ECG WHEN COMPARED WITH ECG OF 03-JAN-2019 10:05, PREMATURE VENTRICULAR COMPLEXES ARE NOW PRESENT NONSPECIFIC T WAVE ABNORMALITY HAS REPLACED INVERTED T WAVES IN LATERAL LEADS Confirmed by LAYLA ESCOBAR MD ([id number]) on 04/29/2019 10:28:27 AM Referred By: Confirmed By:LAYLA ESCOBAR MD
== END 2019-04-28 21:24 | disposition home or self-care (01) ==
LOC: JER 17:16
DX: M17.12 Unilateral primary osteoarthritis, left knee (principal); I11.0 Hypertensive heart disease with heart failure; I50.9 Heart failure, unspecified; E11.9 Type 2 diabetes mellitus without complications; Z79.4 Long term (current) use of insulin; K21.9 Gastro-esophageal reflux disease without esophagitis; Z86.711 Personal history of pulmonary embolism; Z79.01 Long term (current) use of anticoagulants
CPT/HCPCS: 93005; 93010; 99282-25

== ENCOUNTER 2019-06-16 15:25 | Inpatient (IN) | payer OTHER ==
--- NOTE | 2019-06-16 15:46 | PDOC ---
History of Present Illness - General Chief Complaint: Shortness of Breath Stated Complaint: DIFFICULTY BREATHING Time Seen by Provider: 06/16/19 15:46 History Source: Patient Exam Limitations: No Limitations - History of Present Illness Initial Comments: 58 year old female with PMH morbid obesity, HTN, HLD, CHF (EF <15%) noncompliant with lasix, PE (05/24) on Eliquis, chronic lower extremity pain, GERD, cholelithiasis presented to ED for dyspnea on exertion, progressively worsening x2 weeks. Pt admitted to mild symmetrical lower extremity swelling. Pt denied chest pain, palpitations, vomiting, fever. Pt admitted to dry cough starting today. Past History - Past Medical History Allergies/Adverse Reactions: Allergies Allergy/AdvReac Type Severity Reaction Status Date / Time No Known Allergies Allergy Verified 06/16/19 15:37 Home Medications: Ambulatory Orders Carvedilol [Coreg] 25 mg PO BID 08/03/17 Cyclobenzaprine HCl 10 mg PO DAILY 08/04/17 Oxycodone HCl/Acetaminophen [Oxycodone-Acetaminophen 10-325] 1 each PO Q8H PRN MDD 3/day 08/04/17 Quetiapine Fumarate [Seroquel -] 200 mg PO HS 08/04/17 Venlafaxine HCl ER [Effexor Xr -] 75 mg PO TID 01/12/18 Zolpidem Tartrate [Ambien] 10 mg PO HS 01/12/18 Apixaban [Eliquis -] 5 mg PO BID 01/03/19 Gabapentin [Neurontin -] 400 mg PO Q8H 01/03/19 Lisinopril [Zestril] 2.5 mg PO DAILY 01/03/19 Ranitidine [Zantac -] 150 mg PO BID 01/03/19 Spironolactone [Aldactone -] 25 mg PO DAILY 01/03/19 Apixaban [Eliquis -] 5 mg PO BID tablet 01/07/19 Docusate Sodium [Colace -] 100 mg PO TID capsule 01/07/19 Insulin Sliding Scale [Novolog Vial Sliding Scale -] 1 vial SQ ACHS units 01/07 Lidocaine 5% Patch [Lidoderm -] 2 patch TP DAILY patch 01/07/19 Lidocaine Patch Removal [Lidoderm Patch Removal] 1 each MC DAILY@2200 each 10/23 Lidocaine Patch Removal [Lidoderm Patch Removal] 1 each MC DAILY@2200 each 10/23 Lisinopril [Prinivil] 2.5 mg PO DAILY tablet 01/07/19 Polyethylene Glycol 3350 [Miralax 119 gm Btl -] 17 gm PO DAILY bottle 01/07/19 Sennosides [Senna -] 2 tab PO HS tablet 01/07/19 oxyCODONE HCL [Roxicodone -] 10 mg PO Q6H PRN tablet MDD 4 01/07/19 Lidocaine 5% Patch [Lidoderm Patch -] 1 patch TP DAILY #30 patch 04/28/19 Oxycodone HCl/Acetaminophen [Percocet 5/325 -] 2 tab PO Q8H #12 tablet MDD 6 Anemia: No Asthma: No Cancer: No Cardiac Disorders: Yes (last EF 15%) CVA: No COPD: No CHF: Yes Dementia: No Diabetes: Yes (not on meds) GI Disorders: Yes (REFLUX) Disorders: No HTN: Yes Hypercholesterolemia: No Liver Disease: No Seizures: No Thyroid Disease: No - Immunization History Immunization Up to Date: Yes - Psycho Social/Smoking Cessation Hx Smoking History: Unknown if ever smoked Have you smoked in the past 12 months: No Cigars Per Day: 0 Information on smoking cessation initiated: No Hx Alcohol Use: No Drug/Substance Use Hx: No Substance Use Type: None Hx Substance Use Treatment: No Review of Systems - Review of Systems Able to Perform ROS?: Yes Comments:: ROS General: denied fever, chills, generalized weakness. HEENT: denied sore throat, rhinorrhea, ear pain. Cardiovascular: admitted to lower extremity swelling. denied chest pain, palpitations, syncope, diaphoresis. Respiratory: admitted to shortness of breath, cough. denied sputum production, hemoptysis. Gastrointestinal: denied abdominal pain, nausea, vomiting, diarrhea, constipation, blood in stool. Genitourinary: denied dysuria, increased urinary frequency, hematuria, urinary incontinence, flank pain. Back: denied back pain. Musculoskeletal: admitted to chronic lower extremity pain. Neurological: denied headache, dizziness, numbness, tingling, weakness. Integumentary: denied rash, laceration, abrasion. Hematologic/Lymphatic: denied bruising or bleeding. PE Constitutional: Morbidly obese. Well-nourished, Well-developed, appearing stated age. HEENT: head is normocephalic, atraumatic. EOMI. PERRLA. Neck: supple. Full ROM. Cardiovascular: regular heart rhythm. no murmurs. no pericardial friction rub. Respiratory: clear to auscultation bilaterally. no crackles, rhonchi or wheezing. no stridor. Gastrointestinal: soft, nontender. normal bowel sounds. no rebound, guarding, masses. Extremities: peripheral pulses intact. no lower extremity pitting edema. Neurological: CN 2-12 grossly intact. moves all four extremities. Psych: awake, alert, oriented x3. follows commands. answers questions appropriately. *Physical Exam - Vital Signs Last Vital Signs Temp Pulse Resp BP Pulse Ox 99.3 F 114 H 16 167/94 97 06/16/19 15:35 06/16/19 15:35 06/16/19 15:35 06/16/19 15:35 06/16/19 15:35 ED Treatment Course - LABORATORY CBC & Chemistry Diagram: 06/16/19 16:05 06/16/19 16:05 Medical Decision Making - Medical Decision Making 58 year old female with above PMH presented to ED for worsening TIRADO x2 weeks and cough today. Pt has been noncompliant with her Lasix, reported she last took it >2 weeks ago, and does not like to take it because it makes her pee too often. Initial Vital Signs Temp Pulse Resp BP Pulse Ox 99.3 F 114 H 16 167/94 97 06/16/19 15:35 06/16/19 15:35 06/16/19 15:35 06/16/19 15:35 06/16/19 15:35 Afebrile. Tachycardic at presentation. No tachypnea. Hypertensive. No hypoxia on room air. Labs ordered: CBC, CMP, PT/PTT/INR, VBG, troponin, BNP Imaging ordered: CXR Medications ordered: Tylenol IV EKG performed at 1542: rate 89, regular rhythm, left axis, normal intervals, no acute ST changes. CXR my view shows pulmonary vascular congestion, no infiltrate. -Pending official report 06/16/19 16:49 CBC WBC 8.2 K/mm3 (4.0-10.0) 06/16/19 16:05 RBC 3.45 M/mm3 (3.60-5.2) L 06/16/19 16:05 Hgb 8.0 GM/dL (10.7-15.3) L 06/16/19 16:05 Hct 26.1 % (32.4-45.2) L 06/16/19 16:05 MCV 75.7 fl (80-96) L 06/16/19 16:05 MCH 23.1 pg (25.7-33.7) L D 06/16/19 16:05 MCHC 30.5 g/dl (32.0-36.0) L 06/16/19 16:05 RDW 15.7 % (11.6-15.6) H 06/16/19 16:05 Plt Count 441 K/MM3 (134-434) H D 06/16/19 16:05 MPV 7.7 fl (7.5-11.1) 06/16/19 16:05 Absolute Neuts (auto) 5.5 K/mm3 (1.5-8.0) 06/16/19 16:05 Neutrophils % 67.7 % (42.8-82.8) D 06/16/19 16:05 Lymphocytes % 20.0 % (8-40) D 06/16/19 16:05 Monocytes % 7.9 % (3.8-10.2) 06/16/19 16:05 Eosinophils % 3.5 % (0-4.5) 06/16/19 16:05 Basophils % 0.9 % (0-2.0) 06/16/19 16:05 Nucleated RBC % 0 % (0-0) 06/16/19 16:05 No leukocytosis. Microcytic anemia - baseline Hgb ~9.0 -Pt denied history of recent bloody stools 06/16/19 16:54 Pt now reporting that her chronic lower extremity pain is increasing. Now reporting that she left the Percocet in her grandmothers bathroom a few days ago , and has been out of it. But reported that she has her other medication. Pt already had IV tylenol. Medication ordered: Oxycodone 10 mg PO once VBG shows no acidosis, no CO2 retention. 06/16/19 17:29 CMP Sodium 140 mmol/L (136-145) 06/16/19 16:05 Potassium 4.1 mmol/L (3.5-5.1) 06/16/19 16:05 Chloride 112 mmol/L (98-107) H 06/16/19 16:05 Carbon Dioxide 22 mmol/L (21-32) 06/16/19 16:05 Anion Gap 5 MMOL/L (8-16) L 06/16/19 16:05 BUN 17.2 mg/dL (7-18) 06/16/19 16:05 Creatinine 1.3 mg/dL (0.55-1.3) 06/16/19 16:05 Est GFR (CKD-EPI)AfAm 52.00 06/16/19 16:05 Est GFR (CKD-EPI)NonAf 44.87 06/16/19 16:05 Random Glucose 104 mg/dL (74-106) 06/16/19 16:05 Calcium 8.6 mg/dL (8.5-10.1) 06/16/19 16:05 Total Bilirubin 0.1 mg/dL (0.2-1) L 06/16/19 16:05 AST 16 U/L (15-37) 06/16/19 16:05 ALT 17 U/L (13-61) 06/16/19 16:05 Alkaline Phosphatase 102 U/L (45-117) 06/16/19 16:05 Troponin I < 0.02 ng/ml (0.00-0.05) 06/16/19 16:05 B-Natriuretic Peptide 1719.5 pg/ml (5-125) H 06/16/19 16:05 Total Protein 7.2 g/dl (6.4-8.2) 06/16/19 16:05 Albumin 3.3 g/dl (3.4-5.0) L 06/16/19 16:05 Pt to be admitted for CHF exacerbation, likely from medication noncompliance. Medications ordered: Lasix 40 mg IV once. Pt informed of results and need for admission, she is comfortable with plan for care. 06/16/19 17:48 Sign out given to Bouchra Hairston. Pt to be admitted. Discharge - Discharge Information Problems reviewed: Yes Clinical Impression/Diagnosis: CHF exacerbation Condition: Stable - Admission Yes - Follow up/Referral - Patient Discharge Instructions - Post Discharge Activity
--- NOTE | 2019-06-16 15:57 | PDOC ---
Attending Attestation - Resident Resident Name: Elba Johnson - ED Attending Attestation I have performed the following: I have examined & evaluated the patient, The case was reviewed & discussed with the resident, I agree w/resident's findings & plan - HPI HPI: 06/16/19 16:13 58 YOF with morbid obesity, HTN, CHF (EF <15%), GERD, DM2, severe L knee arthritis, chronic pain on opioids, PE (05/24) on Eliquis, does not like taking lasix, last taken 2 weeks ago, p/w TIRADO, progressively worsening, difficult to walk several steps with walker at home. ?leg swelling, dry cough. 06/16/19 16:15 06/16/19 18:47 - Physicial Exam PE: 06/16/19 15:56 Agree with the resident's HPI and PE as documented in the electronic medical record. NAD, well appearing, EOMI, PERRL, nl conjunctiva, anicteric; neck supple. lungs clear, RRR, abdomen soft nontender. obese. no rebound, guarding. Back nontender. REN x4, no focal neuro deficits. No peripheral edema. normal color for ethnicity, WWP. 06/16/19 17:50 - Medical Decision Making 06/16/19 15:57 Vital Signs Temp Pulse Resp BP Pulse Ox 99.3 F 114 H 16 167/94 97 06/16/19 15:35 06/16/19 15:35 06/16/19 15:35 06/16/19 15:35 06/16/19 15:35 vitals hypertensive, initial tachy, improved, normal sats 97% on RA, breathing comfortably. DDx SOB: ACS, PE, PTX, CHF, COPD exac, pulmonary edema, pleurisy, pneumonia, viral syndrome. effusion. anemia, electrolyte/metabolic derangements. Considered but clinically doubt based on HPI and PE: Low suspicion for pulmonary embolism or dissection. bnp much more elevated 1500, higher than previous. neg trop, EKG unremarkable, labs and lytes unremarkable given dose of lasix 40mg IV< diuresis CXR similar, with cardiomegaly and pulm vascular congestion admit for CHF flare, poor compliance, TIRADO. tele, admitting to Dr Silver. 06/16/19 17:50 06/16/19 17:52 Heart Score/ECG Review #1 ECG reviewed & interpreted by me at: 15:45 General ECG Interpretation: Sinus Rhythm, Normal Rate, Normal Intervals 06/16/19 16:06 sinus rhythm 89 bpm 06/16/19 16:14
[2019-06-16] MEDS ORDERED: ACETAMINOPHEN 1000 MG/100 ML VIAL (NON FORMULARY) IVPB ONE (16:09)
[2019-06-16] MEDS ORDERED: ACETAMINOPHEN INJECTION 100 ML IVPB ONE (16:25)
[2019-06-16 16:33] LABS: BASO % 0.9 % (0-2.0); EOS % 3.5 % (0-4.5); HEMATOCRIT 26.1 % (32.4-45.2); MCH 23.1 pg (25.7-33.7); MCHC 30.5 g/dl (32.0-36.0); MEAN CELL VOLUME 75.7 fl (80-96); MEAN PLT VOLUME 7.7 fl (7.5-11.1); MONO % 7.9 % (3.8-10.2); NEUT % 67.7 % (42.8-82.8); PLATELET COUNT 441 K/MM3 (134-434); RBC 3.45 M/mm3 (3.60-5.2); RDW 15.7 % (11.6-15.6); WHITE BLOOD COUNT 8.2 K/mm3 (4.0-10.0)
[2019-06-16 16:49] LABS: VENOUS PH 7.37 (7.31-7.41)
[2019-06-16 16:51] LABS: VENOUS PO2 < 49 mmHg (28-48)
[2019-06-16] MEDS ORDERED: oxyCODONE HCL 5 MG TABLET PO ONE (16:54)
[2019-06-16 17:05] LABS: ALBUMIN 3.3 g/dl (3.4-5.0); BILIRUBIN,TOTAL 0.1 mg/dL (0.2-1); BLOOD UREA NITROGEN 17.2 mg/dL (7-18); CALCIUM 8.6 mg/dL (8.5-10.1); CREATININE 1.3 mg/dL (0.55-1.3); N-TERMINAL BNP 1719.5 pg/ml (5-125); POTASSIUM 4.1 mmol/L (3.5-5.1); TOT PROT 7.2 g/dl (6.4-8.2)
[2019-06-16] MEDS ORDERED: oxyCODONE HCL 5 MG TABLET ONE ×2 (17:06→22:33)
[2019-06-16] MEDS ORDERED: FUROSEMIDE 40 MG/4 ML INJECTABLE VIAL IVPUSH ONE (17:28)
[2019-06-16] MEDS ORDERED: PATIENT'S OWN MEDICATION (NON-FORMULARY) (Oxycodone Hcl/Acetaminophen [Oxycodone-Acetamino PO PRN (17:39)
[2019-06-16] MEDS ORDERED: ZOLPIDEM TARTRATE 5 MG TABLET PO PRN (17:47)
--- NOTE | 2019-06-16 17:50 | HP ---
Admitting History and Physical - Admission Chief Complaint: Shortness of breath History of Present Illness: 58 years old morbidly obese female noncompliant, previous hospitalized in December 2018, chronic back pain and knee pain, patient has multiple comorbidities including history of hypertension, systolic heart failure with ejection fraction 30 to 35% in December 2018, NYHA class III, nonischemic cardiomyopathy status post creatinine May 2018, noncompliant with Lasix, also history of morbid obesity, GERD, presented to ED with complaint of gradually worsening shortness of breath orthopnea and PND, patient states she is noncompliant with her Lasix because of frequent urination, patient also has history of pulmonary embolism for that she takes Eliquis, on arrival to the moderate respiratory distress, received IV Lasix 40 mg with appropriate response, patient denies any chest pain, palpitation, nausea vomiting or diarrhea 83 days, exercise decreased from one half block to few steps also complains of 4 pillows orthopnea and lower extremity swelling. BNP triple from baseline. History Source: Patient - Past Medical History Cardiovascular: Yes: CHF, HTN. No: Deep Vein Thrombosis (pt denies) Pulmonary: Yes: Pulmonary Embolus (May 2018 - on Eliquis) Gastrointestinal: Yes: Constipation, GERD Renal/: Yes: Renal Inusuff ...LMP: 09/23/13 Heme/Onc: Yes: Anemia Psych: Yes: Depression, Other (chronic opioid use) Musculoskeletal: Yes: Chronic low back pain, Osteoarthritis (left knee pain requiring replacement) Endocrine: Yes: Diabetes Mellitus ("they told me I have it, but don't need meds anymore") - Past Surgical History Past Surgical History: Yes: None - Smoking History Smoking history: Unknown if ever smoked Have you smoked in the past 12 months: No - Alcohol/Substance Use Hx Alcohol Use: No History of Substance Use: reports: Prescription (chronic use Percocet, under care of pain management doctors) - Social History ADL: Independent (usually) Home Medications - Allergies Allergies/Adverse Reactions: Allergies Allergy/AdvReac Type Severity Reaction Status Date / Time No Known Allergies Allergy Verified 06/16/19 15:37 - Home Medications Home Medications: Ambulatory Orders Carvedilol [Coreg] 25 mg PO BID 08/03/17 Cyclobenzaprine HCl 10 mg PO DAILY 08/04/17 Oxycodone HCl/Acetaminophen [Oxycodone-Acetaminophen 10-325] 1 each PO Q8H PRN MDD 3/day 08/04/17 Quetiapine Fumarate [Seroquel -] 200 mg PO HS 08/04/17 Venlafaxine HCl ER [Effexor Xr -] 75 mg PO TID 01/12/18 Zolpidem Tartrate [Ambien] 10 mg PO HS 01/12/18 Apixaban [Eliquis -] 5 mg PO BID 01/03/19 Gabapentin [Neurontin -] 400 mg PO Q8H 01/03/19 Lisinopril [Zestril] 2.5 mg PO DAILY 01/03/19 Ranitidine [Zantac -] 150 mg PO BID 01/03/19 Spironolactone [Aldactone -] 25 mg PO DAILY 01/03/19 Apixaban [Eliquis -] 5 mg PO BID tablet 01/07/19 Docusate Sodium [Colace -] 100 mg PO TID capsule 01/07/19 Insulin Sliding Scale [Novolog Vial Sliding Scale -] 1 vial SQ ACHS units 01/07 Lidocaine 5% Patch [Lidoderm -] 2 patch TP DAILY patch 01/07/19 Lidocaine Patch Removal [Lidoderm Patch Removal] 1 each MC DAILY@2200 each 10/23 Lidocaine Patch Removal [Lidoderm Patch Removal] 1 each MC DAILY@2200 each 10/23 Lisinopril [Prinivil] 2.5 mg PO DAILY tablet 01/07/19 Polyethylene Glycol 3350 [Miralax 119 gm Btl -] 17 gm PO DAILY bottle 01/07/19 Sennosides [Senna -] 2 tab PO HS tablet 01/07/19 oxyCODONE HCL [Roxicodone -] 10 mg PO Q6H PRN tablet MDD 4 01/07/19 Lidocaine 5% Patch [Lidoderm Patch -] 1 patch TP DAILY #30 patch 04/28/19 Oxycodone HCl/Acetaminophen [Percocet 5/325 -] 2 tab PO Q8H #12 tablet MDD 6 Family Medical History Family Hx Cancer: Father (Father had cancer) Family Hx Cardiac Disorders: Mother (Hypertension, CHF), Father (-) Review of Systems - Review of Systems Constitutional: denies: Chills, Diaphoresis, Fever, Lethargy Eyes: denies: Blind Spots, Blurred Vision, Double Vision, Eye Pain HENT: denies: Difficult Swallowing, Ear Discharge, Ear Pain, Epistaxis Neck: denies: Decreased ROM, Lumps, Pain on Movement Cardiovascular: reports: Edema, Shortness of Breath. denies: Chest Pain Respiratory: reports: Exercise Intolerance, Orthopnea. denies: Hemoptysis Gastrointestinal: denies: Abdominal Pain, Bloating, Constipation, Diarrhea Genitourinary: denies: Burning, Discharge, Dysuria, Flank Pain Breasts: reports: Breast Implants Musculoskeletal: reports: Back Pain Psychiatric: reports: Altered Sleep Pattern, Depression Physical Examination Vital Signs: Vital Signs Temperature 99.3 F 06/16/19 15:35 Pulse Rate 85 06/16/19 16:37 Respiratory Rate 20 06/16/19 16:37 Blood Pressure 135/86 06/16/19 16:37 O2 Sat by Pulse Oximetry (%) 100 06/16/19 16:37 General: Obese female, comfortable, not in distress, asking for pain medications HEENT; mucous membranes moist, no anemia, no jaundice, PERRLA, no nystagmus Neck: No JVD, supple, no bruit, thyroid palpably normal, normal carotid pulsations. Chest: Non-tender, bilateral basal rales. CVS: S1-S2 regular no murmur/gallop/rub Abdomen: Nondistended, soft, bowel sounds present. 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: AO X3 , no gross motor sensory deficit Labs: CBC, BMP 06/16/19 16:05 06/16/19 16:05 Imaging - Results X-ray: Report Reviewed (Cardiomegaly) EKG: Report Reviewed (Heart rate 89 VA interval 172 QRS 88 QTc 450 excess -8 Impression LVH chest nonspecific T wave changes same as baseline.) Problem List - Problems (1) Heart failure, systolic, with acute decompensation Assessment/Plan: Patient is a known case of systolic heart failure nonischemic cardiomyopathy class C, NYHA stage III, last EF 30 to 35% in December 2018 presented with decompensated CHF in the setting of noncompliance with diuretics, will resume all home medication Coreg 25 mg twice daily, lisinopril 2.5 mg daily, Aldactone 25 mg daily, Lasix IV SS 40 mg twice daily, follow-up magnesium, follow-up echo in a.m., cardiology consult telemetry monitoring, input output chart, low-salt diet. Problems reviewed: Yes Code(s): I50.23 - ACUTE ON CHRONIC SYSTOLIC (CONGESTIVE) HEART FAILURE (2) DM2 (diabetes mellitus, type 2) Assessment/Plan: Patient has history of type 2 diabetes mellitus previously on Januvia at present not taking any medication we will follow-up hemoglobin A1c, diabetic diet, insulin coverage as per Accu-Chek. Problems reviewed: Yes Code(s): E11.9 - TYPE 2 DIABETES MELLITUS WITHOUT COMPLICATIONS Qualifiers: (3) Morbid obesity due to excess calories Assessment/Plan: Patient has morbid obesity BMI more than 40 nutrition consultation outpatient Problems reviewed: Yes Code(s): E66.01 - MORBID (SEVERE) OBESITY DUE TO EXCESS CALORIES (4) History of pulmonary embolism Assessment/Plan: History of pulmonary embolism on lifelong anticoagulated continue Eliquis. 5 mg twice daily Problems reviewed: Yes Code(s): Z86.711 - PERSONAL HISTORY OF PULMONARY EMBOLISM (5) Chronic pain Assessment/Plan: Resume home pain medications Problems reviewed: Yes Code(s): G89.29 - OTHER CHRONIC PAIN (6) Depression Assessment/Plan: History of depression at present denies any suicidal or homicidal ideation will resume home medications. Problems reviewed: Yes Code(s): F32.9 - MAJOR DEPRESSIVE DISORDER, SINGLE EPISODE, UNSPECIFIED
[2019-06-16] MEDS ORDERED: oxyCODONE HCL 5 MG TABLET PO PRN (17:52)
[2019-06-16] MEDS: INSULIN SLIDING SCALE (NOVOLOG) 1 VIAL SQ SCH (18:50)
[2019-06-16] MEDS ORDERED: FUROSEMIDE 40 MG/4 ML INJECTABLE VIAL ONE (18:51)
[2019-06-16] MEDS ORDERED: GABAPENTIN 400 MG CAPSULE (FP) PO SCH (22:00)
[2019-06-16] MEDS ORDERED: PATIENT'S OWN MEDICATION (NON-FORMULARY) (Ranitidine [Zantac -] 150 MG) PO SCH (22:00)
[2019-06-16] MEDS ORDERED: PATIENT'S OWN MEDICATION (NON-FORMULARY) (Zolpidem Tartrate 10 MG) PO SCH (22:00)
[2019-06-16] MEDS ORDERED: QUEtiapine FUMARATE 200 MG TABLET PO SCH (22:00)
[2019-06-16] MEDS ORDERED: ACETAMINOPHEN 325 MG TABLET (FP) ONE (22:32)
[2019-06-16] MEDS ORDERED: ZOLPIDEM TARTRATE 5 MG TABLET ONE ×2 (22:32→22:44)
[2019-06-16] MEDS: ACETAMINOPHEN 325 MG TABLET (FP) PO PRN (22:36)
[2019-06-16] MEDS: CARVEDILOL 25 MG TABLET (FP) PO SCH (23:29)
[2019-06-16] MEDS: DOCUSATE SODIUM 100 MG CAPSULE (FP) PO SCH (23:29)
[2019-06-16] MEDS: APIXABAN 5 MG TABLET PO SCH (23:29)
[2019-06-16] MEDS: FAMOTIDINE 20 MG TABLET PO SCH (23:30)
--- NOTE | 2019-06-17 05:09 | PN ---
Progress Note (short form) - Note Progress Note: SUBJECTIVE: Paged by nursing staff on 4W that patient was concerned for abnormal speech. Upon arrival, Nursing staff informs that patient received 2 doses of Ambien 10mg (20mg total) in addition scheduled doses of Oxycodone 10mg, Neurontin 400mg , Seroquel 200mg. Patient speaking in full sentences however speech is slurred. Patient recalls receiving 2 doses of above medication however is lethargic during interview, falling asleep multiple times during our conversation. No events recorded on tele monitor as patient just recently arrived on the floor. Denies any symptoms including fevers, chills, chest pain, SOB, nausea, vomiting , diarrhea, constipation, numbness, tingling, weakness, headache. OBJECTIVE: 149/92, HR 91, O2 99% Room air, RR 14 NIHSS 2, A&Ox3, Slurred speech, follows some commands however lethargic and falls asleep during examination, Gross sensation intact throughout, 5/5 Muscle strength throughout NAD RRR S1 S2 Bibasalar rales Obese, Soft, nondistended, nontender, +BS 2+ pitting edema ASSESSMENT/PLAN: 58 y/o F with PMHx of morbid obesity, HFrEF, nonischemic cardiomyopathy, Pulmonary Embolism (on NOAC) HTN, chronic back and knee pain, GERD who presented with worsening SOB and admitted for CHF Exacerbation. Paged by nursing staff that patient has slurred speech and is altered. #AMS + Slurred speech -Most likely due to intoxication for medications however must r/o acute neurological event -NIHSS 2 -No events on Tele as patient just arrived on floor -Repeat EKG reveals NSR, LVH VR 83, QTc 465 -Will check Head CT Noncon to r/o hemorrhage -Please hold further Oxycodone, Neurontin, Seroquel, Ambien doses; Will also hold Flexeril in light of altered mentation -Neurochecks Q2h -Fall and dysphagia precautions, Bedrest, Keep HOB elevated -Would consider Neuro eval and Brain MRI is symptoms persist -Nursing sales supervisor Anthony made aware by RN on Floor #Prolonged QTc -QTc 465 on Repeat EKG -Avoid QT prolonging agents
[2019-06-17 06:10] LABS: PH,URINE 5.5 (5.0-8.0); URINE APPEARANCE CLEAR; URINE BILIRUBIN NEGATIVE (NEGATIVE); URINE COLOR YELLOW; URINE GLUCOSE (UA) NEGATIVE (NEGATIVE); URINE KETONE NEGATIVE (NEGATIVE); URINE LEUK ESTERASE NEGATIVE (NEGATIVE); URINE NITRITE NEGATIVE (NEGATIVE); URINE PROTEIN NEGATIVE (NEGATIVE); URINE UROBILINOGEN 0.2 mg/dL (0.2-1.0)
[2019-06-17 06:28] LABS: BASO % 0.6 % (0-2.0); EOS % 3.1 % (0-4.5); HEMATOCRIT 25.5 % (32.4-45.2); HEMOGLOBIN 8.1 GM/dL (10.7-15.3); LYMPH % 29.6 % (8-40); MCH 23.7 pg (25.7-33.7); MCHC 31.9 g/dl (32.0-36.0); MEAN CELL VOLUME 74.4 fl (80-96); MEAN PLT VOLUME 7.1 fl (7.5-11.1); MONO % 10.2 % (3.8-10.2); NEUT % 56.5 % (42.8-82.8); PLATELET COUNT 418 K/MM3 (134-434); RBC 3.42 M/mm3 (3.60-5.2); RDW 15.2 % (11.6-15.6); WHITE BLOOD COUNT 7.8 K/mm3 (4.0-10.0)
[2019-06-17 07:11] LABS: CALCIUM 8.7 mg/dL (8.5-10.1); CREATININE 1.3 mg/dL (0.55-1.3); MAGNESIUM 1.9 mg/dL (1.8-2.4); POTASSIUM 3.4 mmol/L (3.5-5.1)
[2019-06-17] MEDS: DOCUSATE SODIUM 100 MG CAPSULE (FP) PO SCH ×3 (07:37→22:30)
[2019-06-17] MEDS: INSULIN SLIDING SCALE (NOVOLOG) 1 VIAL SQ SCH ×3 (07:37→18:28)
[2019-06-17] MEDS ORDERED: POTASSIUM CHLORIDE TABS 20 MEQ TABLET.ER (FP) PO ONE (07:41)
[2019-06-17] MEDS: FUROSEMIDE 40 MG/4 ML INJECTABLE VIAL IVPUSH SCH ×2 (07:54→16:15)
[2019-06-17] MEDS: KCL 10 MEQ IVPB 10 MEQ/100 ML INFUS.BAG IVPB SCH ×3 (08:25→16:15)
[2019-06-17] MEDS ORDERED: oxyCODONE HCL 5 MG TABLET PO PRN (08:39)
[2019-06-17] MEDS ORDERED: CYCLOBENZAPRINE HCL 10 MG TABLET (FP) PO SCH (10:00)
[2019-06-17] MEDS ORDERED: LISINOPRIL 5 MG TABLET (FP) PO SCH (10:00)
--- NOTE | 2019-06-17 10:00 | EKG ---
Test Reason : Blood Pressure : / mmHG Vent. Rate : 085 BPM Atrial Rate : 085 BPM P-R Int : 176 ms QRS Dur : 098 ms QT Int : 394 ms P-R-T Axes : 046 -04 -15 degrees QTc Int : 468 ms NORMAL SINUS RHYTHM POSSIBLE LEFT ATRIAL ENLARGEMENT LEFT VENTRICULAR HYPERTROPHY ABNORMAL ECG WHEN COMPARED WITH ECG OF 16-JUN-2019 15:42, NO SIGNIFICANT CHANGE WAS FOUND Confirmed by EARLENE LAYTON MD ([id number]) on 06/17/2019 10:00:26 AM Referred By: Confirmed By:EARLENE LAYTON MD
[2019-06-17] MEDS: CARVEDILOL 25 MG TABLET (FP) PO SCH ×2 (10:02→22:30)
[2019-06-17] MEDS: LISINOPRIL 5 MG TABLET (FP) PO SCH (10:04)
[2019-06-17] MEDS: APIXABAN 5 MG TABLET PO SCH ×2 (10:04→22:30)
[2019-06-17] MEDS: POLYETHYLENE GLYCOL 3350 119 GM BTL PO SCH (10:04)
[2019-06-17] MEDS: FAMOTIDINE 20 MG TABLET PO SCH ×2 (10:04→20:56)
[2019-06-17] MEDS: LIDOCAINE 5% TOPICAL PATCH TP SCH (10:04)
[2019-06-17] MEDS: SPIRONOLACTONE 25 MG TABLET (FP) PO SCH (10:04)
--- NOTE | 2019-06-17 10:06 | EKG ---
Test Reason : Blood Pressure : / mmHG Vent. Rate : 089 BPM Atrial Rate : 089 BPM P-R Int : 172 ms QRS Dur : 088 ms QT Int : 370 ms P-R-T Axes : 025 -08 -20 degrees QTc Int : 450 ms NORMAL SINUS RHYTHM VOLTAGE CRITERIA FOR LEFT VENTRICULAR HYPERTROPHY NONSPECIFIC T WAVE ABNORMALITY ABNORMAL ECG WHEN COMPARED WITH ECG OF 28-APR-2019 20:15, PREMATURE VENTRICULAR COMPLEXES ARE NO LONGER PRESENT Confirmed by CALIN JETT, EARLENE ([id number]) on 06/17/2019 10:06:40 AM Referred By: Confirmed By:EARLENE LAYTON MD
--- NOTE | 2019-06-17 10:15 | CON.CARD ---
Consult Consult Specialty:: cardio - History of Present Illness Chief Complaint: sob History of Present Illness: 58 F here with incr sob. admits to non-compliance with lasix sec to urination inconvenience. denies hi sodium diet, take-out. sometimes adds salt to foods cooked at home. states last week began to feel mildly breathless when walks with walker. not her USOH. also noted PND episodes. no cp. no palp, syncope PMH: nonisch CMP/HFrEF HTN h/o PE - Past Medical History Cardio/Vascular: Yes: CHF, HTN. No: Deep Vein Thrombosis (pt denies) Pulmonary: Yes: Pulmonary Embolus (May 2018 - on Eliquis) Gastrointestinal: Yes: Constipation, GERD Renal/: Yes: Renal Inusuff ...LMP: 09/23/13 Psych: Yes: Depression, Other (chronic opioid use) Musculoskeletal: Yes: Chronic low back pain, Osteoarthritis (left knee pain requiring replacement) Endocrine: Yes: Diabetes Mellitus ("they told me I have it, but don't need meds anymore") - Past Surgical History Past Surgical History: Yes: None - Alcohol/Substance Use Hx Alcohol Use: No History of Substance Use: reports: Prescription (chronic use Percocet, under care of pain management doctors) - Smoking History Smoking history: Unknown if ever smoked Have you smoked in the past 12 months: No - Social History ADL: Independent (usually) Home Medications - Allergies Allergies/Adverse Reactions: Allergies Allergy/AdvReac Type Severity Reaction Status Date / Time No Known Allergies Allergy Verified 06/16/19 15:37 - Home Medications Home Medications: Ambulatory Orders Carvedilol [Coreg] 25 mg PO BID 08/03/17 Cyclobenzaprine HCl 10 mg PO DAILY 08/04/17 Oxycodone HCl/Acetaminophen [Oxycodone-Acetaminophen 10-325] 1 each PO Q6H PRN MDD 4/day 08/04/17 Quetiapine Fumarate [Seroquel -] 200 mg PO HS 08/04/17 Venlafaxine HCl ER [Effexor Xr -] 75 mg PO TID 01/12/18 Zolpidem Tartrate [Ambien] 10 mg PO HS 01/12/18 Gabapentin [Neurontin -] 400 mg PO Q8H 01/03/19 Ranitidine [Zantac -] 150 mg PO BID 01/03/19 Spironolactone [Aldactone -] 25 mg PO DAILY 01/03/19 Apixaban [Eliquis -] 5 mg PO BID tablet 01/07/19 Docusate Sodium [Colace -] 100 mg PO TID capsule 01/07/19 Insulin Sliding Scale [Novolog Vial Sliding Scale -] 1 vial SQ ACHS units 01/07 Lisinopril [Prinivil] 2.5 mg PO DAILY tablet 01/07/19 Polyethylene Glycol 3350 [Miralax 119 gm Btl -] 17 gm PO DAILY bottle 01/07/19 Sennosides [Senna -] 2 tab PO HS tablet 01/07/19 Lidocaine 5% Patch [Lidoderm Patch -] 1 patch TP DAILY #30 patch 04/28/19 oxyCODONE SR [Oxycontin] 15 mg PO BID 06/17/19 Family Medical History Family History: Denies (no known cmp) Review of Systems - Review of Systems Constitutional: denies: Chills, Fever Eyes: denies: Eye Pain HENT: denies: Nasal Congestion Neck: denies: Stiffness Cardiovascular: denies: Palpitations Respiratory: reports: PND. denies: Orthopnea, Wheezing Gastrointestinal: denies: Diarrhea, Rectal Bleeding Genitourinary: denies: Burning, Hematuria Musculoskeletal: denies: Muscle Pain Integumentary: denies: Rash Neurological: denies: Numbness, Seizure, Syncope Endocrine: denies: Excessive Sweating Hematology/Lymphatic: denies: Excessive Bleeding Vital Signs: Vital Signs Temperature 98.3 F 06/17/19 07:46 Pulse Rate 76 06/17/19 07:46 Respiratory Rate 14 06/17/19 09:00 Blood Pressure 160/98 06/17/19 07:46 O2 Sat by Pulse Oximetry (%) 100 06/17/19 09:00 Constitutional: Yes: Well Nourished, No Distress, Obese Eyes: No: Sclera Icterus HENT: No: Nasal Congestion Neck: No: Decreased ROM Respiratory: Yes: CTA Bilaterally. No: Accessory Muscle Use, Rales, Wheezes Gastrointestinal: Yes: Normal Bowel Sounds. No: Distention, Hepatomegaly, Palpable Mass, Tenderness Cardiovascular: Yes: Regular Rate and Rhythm JVD: No Carotid Bruit: No PMI: Non-Displaced Heart Sounds: Yes: S1, S2. No: Gallop Murmur: No: Systolic Murmur, Diastolic Murmur Musculoskeletal: Yes: Other (No kyphosis) Extremities: No: Cool, Cyanosis Edema: No Peripheral Pulses: 2+ Left Carotid, 2+ Right Carotid, 2+ Left Doralis Pedis, 2+ Right Dorsalis Pedis Integumentary: No: Jaundice Neurological: Yes: Alert, Oriented (x3) Psychiatric: No: Agitated - Other Data Labs, Other Data: CBC, BMP 06/17/19 06:05 06/17/19 06:05 Troponin, BNP 06/16/19 06/16/19 16:05 16:05 Troponin I < 0.02 B-Natriuretic Peptide 1719.5 H Troponin, BNP 06/16/19 06/16/19 16:05 16:05 Troponin I < 0.02 B-Natriuretic Peptide 1719.5 H Assessment/Plan Echo 12/23: severe global LV hypo (30-35%). nl RV. mild MR. CXR: clear lungs/pleura ECG: NSR, LVH--no signif change tele: sinus with sinus tach SOB, Non-ischemic CM, acute HFrEF: -home regimen carvedilol 25 bid, lisinopril 2.5 qd (increased to 5 here), spironolactone 25 qd--continue same -wt 263-269 standing scale when here 01/23. office wt 270 in 02/22. has not been weighed here so far, ordered. -BNP 1700 (from 500 in 12/23). cxr clear. ? anemia triggered. -sx's compatible with volume excess, in setting of non-compliance with lasix. no volume on very tds exam (habitus). -responding subjectively to lasix 40 iv bid--continue same. -prior w/u with unremarkable cath. 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 -EF 30-35% here 12/23. per d/w dr melgar, last echo with definity and CMR were c /w EF >35% hence ICD deferred--he will reassess with outpt imaging with contrast -rec outpt sleep study (? reversible etiology of CMP) anemia: -hgb 8s, stable here. down slightly from last admit -on eliquis, appeas iron deficient. needs heme followup History of pulmonary embolism 05/24--remains on eliquis -seen by heme when here 12/23 for risk stratification and NOAC duration rec.s; impression/plan at that time was "pt withsignificant risk factors for recurrence -- morbid obesity, immobilization, rec'd thrombophilia w/u (protein C /S, ATIII, FVL, prothrombin gene mutatioon, APLA panel) given unprovoked event as may help determine risk of recurrence. Antithrombin may be decreased on heparin but if normal, will r/o deficiency. If work-up is negative, would use outpatient d-dimer for futher risk stratification" -needs heme followup HTN: -bp not optimal -titrating ROMI up, observe trend Morbid obesity
[2019-06-17] MEDS: ACETAMINOPHEN 325 MG TABLET (FP) PO PRN ×3 (10:16→22:30)
[2019-06-17] MEDS ORDERED: oxyCODONE HCL 10 MG SUSTAINED ACTING TABLET PO SCH (10:30)
--- NOTE | 2019-06-17 11:35 | PN ---
Addendum entered and electronically signed by Anthony Magana, RESIDENT 06/17/19 13:53: CORRECTION: Unprovoked PE in 2018. Pt found to have PE at that time remains on Eliquis. Original Note: Progress Note (short form) - Note Progress Note: HPI: Pt with worsening TIRADO and orthopnea (uses 4 pillows) admitting to noncompliance with lasix dose at home. Pt reports she does not like urinating so frequently so she stopped taking it. Pt is also wishes to have q4h oxycodone like her home dose, but we discussed how pharmacy is only confirming q6h. Overnight events noted with resolution of somnolence from ambien. Pt reports while sitting at bedside she does not have shortness of breath. Never had CP or palpitations. Telemetry: No significant events noted Vital Signs Temperature 98.3 F 06/17/19 07:46 Pulse Rate 76 06/17/19 07:46 Respiratory Rate 14 06/17/19 09:00 Blood Pressure 160/98 06/17/19 07:46 O2 Sat by Pulse Oximetry (%) 100 06/17/19 09:00 PE: GEN: NAD, awake, alert, oriented x3 HEENT: Nc/AT, LULA, sclera anicteric, MMM Neck: No JVD noted Lung: Rales b/l at the bases with distant lung sounds. No wheezes. CARD: RRR no murmurs appreciated. Distant ABD: Soft, obese, NT/ND, normoactive BS, no guarding : Dawn noted with clear-yellow urine draining EXT: Trace edema at the ankles. Pulses 2+ b/l. CBC, BMP 06/17/19 06:05 06/17/19 06:05 Active Medications Acetaminophen (Tylenol -) 325 mg PO Q6H PRN PRN Reason: PAIN LEVEL 6-10 Apixaban (Eliquis -) 5 mg PO BID [facility] Last Admin: 06/17/19 10:04 Dose: 5 mg Carvedilol (Coreg -) 25 mg PO BID [facility] Last Admin: 06/17/19 10:02 Dose: 25 mg Docusate Sodium (Colace -) 100 mg PO TID [facility] Last Admin: 06/17/19 07:37 Dose: Not Given Famotidine (Pepcid -) 20 mg PO BID [facility] Last Admin: 06/17/19 10:04 Dose: 20 mg Furosemide (Lasix Injection -) 40 mg IVPUSH BIDLASIX [facility] Last Admin: 06/17/19 07:54 Dose: 40 mg Insulin Aspart (Novolog Vial Sliding Scale -) 1 vial SQ TIDAC [facility]; Protocol Last Admin: 06/17/19 07:37 Dose: Not Given Lidocaine (Lidoderm Patch -) 1 patch TP DAILY [facility] Last Admin: 06/17/19 10:04 Dose: 1 patch Lisinopril (Prinivil) 5 mg PO DAILY [facility] Last Admin: 06/17/19 10:04 Dose: 5 mg Oxycodone HCl (Roxicodone -) 10 mg PO Q6H PRN PRN Reason: PAIN LEVEL 6-10 Oxycodone HCl (Oxycontin -) 10 mg PO BID [facility] Polyethylene Glycol (Miralax (For Daily Use) -) 17 gm PO DAILY [facility] Last Admin: 06/17/19 10:04 Dose: 17 grams Spironolactone (Aldactone -) 25 mg PO DAILY [facility] Last Admin: 06/17/19 10:04 Dose: 25 mg Assessment and Plan: Acute on chronic systolic heart failure Acute metabolic encephalopathy 2/2 to medications (resolved) Demyelination vs. gliosis incidentally found on CT Type 2 DM Chronic back pain Morbid obesity History of PE (2017) --Pt with acute volume overload because of noncompliance with diuretics --Pt's last echocardiogram December 2018 with EF 30-35% with improvement from previous one --Nonischemic cardiomyopathy noted without clear etiology --TSH ordered for r/o --Echocardiogram rpt for pulmonary HTN and EF interval change --Continue Lasix 40mg IVP qdaily --Continue Aldactone 25mg qdaily --Continue Coreg 25mg BID --Increased Lisinopril to 5mg qdaily today --Cardiology consulted --Discontinue dawn and keep accurate I&O's with measuring hat --Daily weights (dry weight appears to be 117kg, however not clear from previous discharge; unknown to patient) --Physical therapy ordered; if ambulates well can order pre-/post today or can postpone until tomorrow --Provoke PE noted in 2018 due to OCP use. Continue Eliquis 5mg BID PO --Hematology consulted: No antiphospholipid result in prior workup; can order with AM labs for f/u outpatient --Confirmed with pharmacy: Oxycontin 15mg BID PO scheduled; Percocet 10-325mg q6h PRN --Neurology consultation for incidental findings found on CT scan --Will discuss need for inpatient vs. outpatient MRI --Asymptomatic at this time --Sleep screening due to morbid obesity --Given BMI >40 would likely benefit from bariatric consultation on outpatient basis FEN: Fluids: Avoid; active diuresis Electrolyte abnormalities: Hypokalemia; repleted with KDur + KCl Nutrition: Diabetic/Sodium PPX: DVT - Already on Eliquis GI - Not indicated Dispo: Continue monitoring Telemetry Case discussed with Dr. Oscar Magana, DO - IM PGY-3 <Anthony Magana - Last Filed: 06/17/19 11:40> - Note Progress Note: Seen and examined; agree with the outlined assessment and plan aside from as documented by myself. Independently verified all jaimes historical and PE findings in addition to all labs and diagnostics. Discussed the case at length with the resident team and consulting services. No other events noted overnight; continues to have TIRADO on ambulation. Admits to medication noncompliance and has poor overall insight. Complete chart review shows that hematology consultation placed earlier this year shows unprovoked PE with ongoing treatment with eliquis). Full hypercoag workup was recommended but the only test that was actually preformed was the antithrombin gene mutation (resulted negative but patient was notably on heparin at that juncture). They have no new complaints and deny any chest pain, cough, nausea, etc. 10 sys ROS done and negative aside from HPI VS, labs, imaging reviewed NAD, AAO, resting in bed NC AT EOMI PERRLA HR wnl, somewhat faint heart sounds with s1/2 and faint systolic murmur Lungs with poor exam 2/2 habitus but mild to minimal crackles likely near bases , w/ sym exp Obese; NT ND +BS. BMI >40 CN2-12 wnl, no fnd Normal mood, blunted to euthymic affect with limited insight regarding her ongoing condition and questionable judgment given some prior medical documentation. Prior echocardiogram, EKG, imaging reviewed Prior consults reviewed Telemetry reviewed A/P: Seen and examined; improved and off O2 but still having exercise intolerance. She has NICM with acute on chronic severe HFrEF exacerbation secondary to viral myocarditis with prior cardiac MRI as discussed in CV notes. she has a history of PE in 2018 and is on eliquis and is an uncontrolled diabetic. She was being evaluated for advanced therapies and ultimate management of her severe chronic condition is per CV. Discontinue dawn, can move off tele, monitor on medicine service. Problems are: -Acute on chronic NYHA-IV HFrEF secondary to NICM due to myocarditis *Per CV: -EF 30-35% here 12/23. per d/w dr melgar, last echo with definity and CMR were c/w EF >35% hence ICD deferred--he will reassess with outpt imaging with contrast. -If remains improved in Am likely PO and DC home with close CV followup. Needs CM and SW to arrange for IRONWORKER. Would benefit from cardiac rehab and potential pulmonary rehab. Consdiering other etiologies of the chronic respiratory failure including anemia and pickwickian syndrome alongside underlying AMANDA, etc. -Likely CKD; trend CMP -History of Unprovoked PE (hypercoag workup should be ordered and heme consult placed; Patient has diminished exercise tolerance, as well, and is an increased fall risk.) -Iron Deficiency Anemia (Iron replacement, monitor CBC) -History of GERD -History of chronic pain secondary to DJD in knee pending sgy -Noncompliance ([employer] prior to DC) -Thrombocytosis (Trend, FU heme recs) -History of HTN (Continue current medications; controlled. Defer further changes to CV consultation) -History HLD (No new issues; OP FLP and statin titration -Nonobstructing CAD (No acute symptoms, per CV) -Morbid obesity (Bariatric referral) -Suspected AMANDA (On narcotics with BMI 43; eval for AMANDA and refer to pulmonary. Contributes to her chronic problems and she may need home CPAP) -Opioid Dependence (Spent much of the day requesting pain medication from myself and the resident team; prior history and physical from Dr. Nguyen indicates opioid-seeking behavior. Given her noncompliance, significant risk factors for poor outcomes including morbid obesity, unemployment, lack of ongoing proof of pain contract and drug screening, she is extraordinarily high risk for continued treatment with pain medications. As this is not her presenting symptom I am not going to attempt to wean her but STRONGLY suggest she followup closely with PCP in order to attain this). Full Code <Brady Moore - Last Filed: 06/19/19 01:28>
--- NOTE | 2019-06-17 12:28 | ECHO ---
Name: CHARLIE URIAS Mitesh Exam:Adult Echocardiogram Study Date: 06/17/2019 10:51 AM Age: 58 yrs Reason For Study: SYNCOPE Height: 66 in Weight: 265 lb BSA: 2.3 m2 MMode/2D Measurements & Calculations IVSd: 0.84 cm Ao root diam: 3.3 cm LVIDd: 6.5 cm LA dimension: 4.1 cm LVIDs: 5.5 cm ACS: 2.2 cm LVPWd: 1.1 cm IVSs: 0.92 cm LVPWs: 1.4 cm EDV(Teich): 212.5 ml ESV(Teich): 150.3 ml EPSS: 2.5 cm Doppler Measurements & Calculations MV E max jv: 32.3 cm/sec Ao V2 max: 114.8 cm/sec MV A max jv: 74.8 cm/sec Ao max P.3 mmHg MV E/A: 0.43 Ao V2 mean: 80.9 cm/sec Ao mean P.0 mmHg Ao V2 VTI: 17.1 cm MR max jv: 437.0 cm/sec TR max jv: 136.0 cm/sec MR max P.5 mmHg TR max P.4 mmHg PI end-d jv: 111.3 cm/sec Med Peak E' Jv: 3.2 cm/sec Med E/e': 10.2 Lat Peak E' Jv: 2.9 cm/sec Lat E/e': 11.3 Procedure A complete two-dimensional transthoracic echocardiogram was performed (2D, M-mode, Doppler and color flow Doppler). Technically limited study. Left Ventricle The left ventricle is moderately dilated. Left ventricular systolic function is severely reduced. Eje ction Fraction = 25-30%. Grade I diastolic dysfunction, (abnormal relaxation pattern). Ratio E/E'= 11. Ther e is severe global hypokinesis of the left ventricle. Right Ventricle The right ventricle is normal size. The right ventricular systolic function is normal. Atria The left atrium is mildly dilated. Right atrial size is normal. Mitral Valve There is mild mitral valve thickening. There is mild mitral annular calcification. There is mild mitr al regurgitation. Tricuspid Valve The tricuspid valve is normal in structure and function. No tricuspid regurgitation. Aortic Valve The aortic valve is normal in structure and function. No aortic regurgitation is present. Pulmonic Valve The pulmonic valve is not well visualized. Mild pulmonic valvular regurgitation. Great Vessels The aortic root is normal size. Pericardium/Pleura There is no pericardial effusion. Interpretation Summary Technically limited study The left ventricle is moderately dilated. Left ventricular systolic function is severely reduced. There is severe global hypokinesis of the left ventricle. Ejection Fraction = 25-30%. Grade I diastolic dysfunction, (abnormal relaxation pattern). Ratio E/E'= 11 The left atrium is mildly dilated. Right atrial size is normal. There is mild mitral valve thickening. There is mild mitral annular calcification. There is mild mitral regurgitation. Mild pulmonic valvular regurgitation. There is no pericardial effusion. Maycol Josue MD 06/17/2019 12:27 PM
[2019-06-17] MEDS ORDERED: diazePAM 5 MG TABLET PO ONE (13:46)
--- NOTE | 2019-06-17 14:39 | CONSULT ---
Consultation: REQUESTING PROVIDER: Heme/Onc Service CONSULT REQUEST: We have been asked to medically evaluate this patient for PE on AC. HISTORY OF PRESENT ILLNESS: Pt is a questionable historian. Pt is a 58 years old morbidly obese female with PMH hypertension, systolic heart failure with ejection fraction 30 to 35% in December 2018, NYHA class III, nonischemic cardiomyopathy recently hospitalized in December 2018 with cholelithiasis. Pt presented to ED with complaint of SOB. Pt states she has had similar symptoms before when she had a PE about 8 months ago. She states she was put on lifelong AC (eliquis) at that time. When asked if she takes her medication, pt stated she does. When pressed by family at bediside, pt admitted that she does not take her eliquis every day, nor does she consistently use her lasix. She also mentioned a "machine" for her heart that her doctor wanted her to wear but, which she does not use. She thought it might be a life vest. At this time, pt feels relatively well and has no SOB on room air without breathing aides. She does admit to SOB on exertion and when lying flat. No other complaints. Denies leg discomfort/swelling, fever, palpitations, nausea, vomiting, chest pain. REVIEW OF SYSTEMS: CONSTITUTIONAL: Absent: fever, chills, diaphoresis, generalized weakness, malaise, loss of appetite, weight change HEENT: Absent: rhinorrhea, nasal congestion, throat pain, throat swelling, difficulty swallowing, mouth swelling, ear pain, eye pain, visual changes CARDIOVASCULAR: Absent: chest pain, syncope, palpitations, irregular heart rate, lightheadedness , peripheral edema RESPIRATORY: shortness of breath, dyspnea with exertion, orthopnea Absent: cough, , wheezing, stridor, hemoptysis GASTROINTESTINAL: Absent: abdominal pain, abdominal distension, nausea, vomiting, diarrhea, constipation, melena, hematochezia GENITOURINARY: Absent: dysuria, frequency, urgency, hesitancy, hematuria, flank pain, genital pain MUSCULOSKELETAL: Absent: myalgia, arthralgia, joint swelling, back pain, neck pain SKIN: Absent: rash, itching, pallor HEMATOLOGIC/IMMUNOLOGIC: Absent: easy bleeding, easy bruising, lymphadenopathy, frequent infections ENDOCRINE: Absent: unexplained weight gain, unexplained weight loss, heat intolerance, cold intolerance NEUROLOGIC: Absent: headache, focal weakness or paresthesias, dizziness, unsteady gait, seizure, mental status changes, bladder or bowel incontinence PSYCHIATRIC: Absent: anxiety, depression, suicidal or homicidal ideation, hallucinations. PHYSICAL EXAMINATION Vital Signs - 24 hr 06/16/19 06/16/19 06/16/19 15:35 16:30 16:37 Temperature 99.3 F Pulse Rate 114 H Pulse Rate [ 90 85 Left Apical] Respiratory 16 20 Rate Blood Pressure 167/94 Blood Pressure 135/86 [Left Arm] O2 Sat by Pulse 97 97 100 Oximetry (%) 06/16/19 06/16/19 06/17/19 19:20 23:42 04:30 Temperature 98.9 F 98.2 F 97.8 F Pulse Rate 14 L Pulse Rate [ 83 75 Left Apical] Respiratory 17 18 14 Rate Blood Pressure 149/92 Blood Pressure 163/97 155/80 [Left Arm] O2 Sat by Pulse 100 100 98 Oximetry (%) 06/17/19 06/17/19 07:46 09:00 Temperature 98.3 F Pulse Rate 76 Pulse Rate [ Left Apical] Respiratory 13 14 Rate Blood Pressure 160/98 Blood Pressure [Left Arm] O2 Sat by Pulse 100 Oximetry (%) Gen: NAD, AAOx3 HEENT: NCAT, eomi Neck: supple, no bruits Cardio: s1s2 noted, rrr, no mrg noted Pulm: cta b/l Abd: obese, soft, nontender, nondistended Laboratory Results - last 24 hr 06/16/19 06/16/19 06/16/19 16:05 16:05 16:05 WBC 8.2 RBC 3.45 L Hgb 8.0 L Hct 26.1 L MCV 75.7 L MCH 23.1 L D MCHC 30.5 L RDW 15.7 H Plt Count 441 H D MPV 7.7 Absolute Neuts (auto) 5.5 Neutrophils % 67.7 D Lymphocytes % 20.0 D Monocytes % 7.9 Eosinophils % 3.5 Basophils % 0.9 Nucleated RBC % 0 VBG pH POC VBG pCO2 POC VBG pO2 VBG HCO3 VBG O2 Sat (Luke) VBG Base Excess Sodium 140 Potassium 4.1 Chloride 112 H Carbon Dioxide 22 Anion Gap 5 L BUN 17.2 Creatinine 1.3 Est GFR (CKD-EPI)AfAm 52.00 Est GFR (CKD-EPI)NonAf 44.87 POC Glucometer Random Glucose 104 Hemoglobin A1c % Calcium 8.6 Magnesium Iron TIBC Iron Saturation Unsaturated IBC Ferritin Total Bilirubin 0.1 L AST 16 ALT 17 Alkaline Phosphatase 102 Troponin I < 0.02 B-Natriuretic Peptide 1719.5 H Total Protein 7.2 Albumin 3.3 L Beta HCG, Quant Urine Color Urine Appearance Urine pH Ur Specific [place] Urine Protein Urine Glucose (UA) Urine Ketones Urine Blood Urine Nitrite Urine Bilirubin Urine Urobilinogen Ur Leukocyte Esterase 06/16/19 06/17/19 06/17/19 16:05 05:56 05:56 WBC RBC Hgb Hct MCV MCH MCHC RDW Plt Count MPV Absolute Neuts (auto) Neutrophils % Lymphocytes % Monocytes % Eosinophils % Basophils % Nucleated RBC % VBG pH 7.37 POC VBG pCO2 40.0 POC VBG pO2 < 49 H VBG HCO3 22.4 L VBG O2 Sat (Luke) 66.0 L VBG Base Excess -2.1 L Sodium Potassium Chloride Carbon Dioxide Anion Gap BUN Creatinine Est GFR (CKD-EPI)AfAm Est GFR (CKD-EPI)NonAf POC Glucometer 103 Random Glucose Hemoglobin A1c % Calcium Magnesium Iron TIBC Iron Saturation Unsaturated IBC Ferritin Total Bilirubin AST ALT Alkaline Phosphatase Troponin I B-Natriuretic Peptide Total Protein Albumin Beta HCG, Quant Urine Color Yellow Urine Appearance Clear Urine pH 5.5 D Ur Specific [place] 1.010 Urine Protein Negative Urine Glucose (UA) Negative Urine Ketones Negative Urine Blood Negative Urine Nitrite Negative Urine Bilirubin Negative Urine Urobilinogen 0.2 Ur Leukocyte Esterase Negative 06/17/19 06/17/19 06/17/19 06:05 06:05 06:05 WBC 7.8 RBC 3.42 L Hgb 8.1 L Hct 25.5 L MCV 74.4 L MCH 23.7 L MCHC 31.9 L RDW 15.2 Plt Count 418 MPV 7.1 L Absolute Neuts (auto) 4.4 Neutrophils % 56.5 Lymphocytes % 29.6 D Monocytes % 10.2 Eosinophils % 3.1 Basophils % 0.6 Nucleated RBC % 0 VBG pH POC VBG pCO2 POC VBG pO2 VBG HCO3 VBG O2 Sat (Luke) VBG Base Excess Sodium 140 Potassium 3.4 L Chloride 109 H Carbon Dioxide 26 Anion Gap 6 L BUN 17.0 Creatinine 1.3 Est GFR (CKD-EPI)AfAm 52.00 Est GFR (CKD-EPI)NonAf 44.87 POC Glucometer Random Glucose 107 H Hemoglobin A1c % 6.2 Calcium 8.7 Magnesium 1.9 Iron 19 L TIBC 442 Iron Saturation 4 L Unsaturated IBC 423 H Ferritin 22.8 Total Bilirubin AST ALT Alkaline Phosphatase Troponin I B-Natriuretic Peptide Total Protein Albumin Beta HCG, Quant 1.7 Urine Color Urine Appearance Urine pH Ur Specific [place] Urine Protein Urine Glucose (UA) Urine Ketones Urine Blood Urine Nitrite Urine Bilirubin Urine Urobilinogen Ur Leukocyte Esterase 06/17/19 12:10 WBC RBC Hgb Hct MCV MCH MCHC RDW Plt Count MPV Absolute Neuts (auto) Neutrophils % Lymphocytes % Monocytes % Eosinophils % Basophils % Nucleated RBC % VBG pH POC VBG pCO2 POC VBG pO2 VBG HCO3 VBG O2 Sat (Ulke) VBG Base Excess Sodium Potassium Chloride Carbon Dioxide Anion Gap BUN Creatinine Est GFR (CKD-EPI)AfAm Est GFR (CKD-EPI)NonAf POC Glucometer 111 Random Glucose Hemoglobin A1c % Calcium Magnesium Iron TIBC Iron Saturation Unsaturated IBC Ferritin Total Bilirubin AST ALT Alkaline Phosphatase Troponin I B-Natriuretic Peptide Total Protein Albumin Beta HCG, Quant Urine Color Urine Appearance Urine pH Ur Specific [place] Urine Protein Urine Glucose (UA) Urine Ketones Urine Blood Urine Nitrite Urine Bilirubin Urine Urobilinogen Ur Leukocyte Esterase Active Medications Generic Name Dose Route Start Last Admin Trade Name Fatoumata PRN Reason Stop Dose Admin Acetaminophen 325 mg 06/17/19 10:27 Tylenol - PO Q6H PRN PAIN LEVEL 6-10 Apixaban 5 mg 06/16/19 22:00 06/17/19 10:04 Eliquis - PO 5 mg BID EMILI Administration Carvedilol 25 mg 06/16/19 22:00 06/17/19 10:02 Coreg - PO 25 mg BID EM[facility]I Administration Docusate Sodium 100 mg 06/16/19 22:00 06/17/19 07:37 Colace - PO Not Given TID EM[facility]I Famotidine 20 mg 06/16/19 22:00 06/17/19 10:04 Pepcid - PO 20 mg BID EM[facility]I Administration Furosemide 40 mg 06/17/19 06:00 06/17/19 07:54 Lasix Injection - IVPUSH 40 mg BIDLASIX [facility]I Administration Insulin Aspart 1 vial 06/16/19 18:00 06/17/19 12:12 Novolog Vial Sliding Scale - SQ Not Given TIDAC [facility] Protocol Lidocaine 1 patch 06/17/19 10:00 06/17/19 10:04 Lidoderm Patch - TP 1 patch DAILY [facility] Administration Lisinopril 5 mg 06/17/19 10:00 06/17/19 10:04 Prinivil PO 5 mg DAILY [facility] Administration Oxycodone HCl 10 mg 06/17/19 10:26 Roxicodone - PO Q6H PRN PAIN LEVEL 6-10 Oxycodone HCl 10 mg 06/17/19 10:40 Oxycontin - PO BID [facility] Polyethylene Glycol 17 gm 06/17/19 10:00 06/17/19 10:04 Miralax (For Daily Use) - PO 17 grams DAILY [facility] Administration Spironolactone 25 mg 06/17/19 10:00 06/17/19 10:04 Aldactone - PO 25 mg DAILY [facility] Administration ASSESSMENT/PLAN: Pt is a 58 y/o F with extensive PMH including HFrEF, HTN, DVT with PE on AC and noncompliance with medications/therapies who presented to ED with SOB likely related to CHF. Heme/Onc was called to evaluate for provoked PE on AC. VTE -Per pt, she had first DVT/PE 8 months ago 2/2 OCPs and was put on AC but has been inconsistent with her medication -denies leg pain/swelling -sob postural -would continue AC -monitor for bleeding -Hypercoagubility workup done on previous visit with the exception of antiphospholipid Ab, which should be done out pt Microcytic hypochromic anemia -unknown etiology -retic, Fe studies, FOBT recommend Chest CT for f/u on nodules recommend GI workup as an out pt Dispo: We will continue to follow the patient. Thank you for this consultative opportunity. Visit type - Emergency Visit Emergency Visit: No - New Patient This patient is new to me today: Yes Date on this admission: 06/17/19 - Critical Care Critical Care patient: No ATTENDING PHYSICIAN STATEMENT I saw and evaluated the patient. I reviewed the resident's note and discussed the case with the resident. I agree with the resident's findings and plan as documented. SUBJECTIVE: OBJECTIVE: ASSESSMENT AND PLAN:
[2019-06-17] MEDS: oxyCODONE HCL 5 MG TABLET PO PRN ×2 (15:51→22:31)
[2019-06-17] MEDS ORDERED: LIDOCAINE PATCH REMOVAL MC SCH (22:00)
[2019-06-17] MEDS ORDERED: PROCHLORPERAZINE MALEATE 5 MG TABLET PO PRN (22:19)
[2019-06-17] MEDS ORDERED: PROCHLORPERAZINE MALEATE 5 MG TABLET PO ONE (22:20)
[2019-06-17] MEDS: oxyCODONE HCL 10 MG SUSTAINED ACTING TABLET PO SCH (22:35)
[2019-06-18] MEDS: FUROSEMIDE 40 MG/4 ML INJECTABLE VIAL IVPUSH SCH ×2 (05:18→09:14)
[2019-06-18] MEDS: oxyCODONE HCL 5 MG TABLET PO PRN ×3 (05:19→21:15)
[2019-06-18] MEDS: DOCUSATE SODIUM 100 MG CAPSULE (FP) PO SCH ×3 (05:19→21:14)
[2019-06-18] MEDS: ACETAMINOPHEN 325 MG TABLET (FP) PO PRN ×3 (05:20→21:16)
[2019-06-18] MEDS: FAMOTIDINE 20 MG TABLET PO SCH ×3 (05:54→21:14)
[2019-06-18 06:52] LABS: HEMATOCRIT 28.7 % (32.4-45.2); HEMOGLOBIN 8.9 GM/dL (10.7-15.3); MCH 23.1 pg (25.7-33.7); MCHC 31.2 g/dl (32.0-36.0); MEAN PLT VOLUME 7.5 fl (7.5-11.1); PLATELET COUNT 469 K/MM3 (134-434); RBC 3.88 M/mm3 (3.60-5.2); RDW 15.6 % (11.6-15.6); WHITE BLOOD COUNT 8.8 K/mm3 (4.0-10.0)
[2019-06-18 07:16] LABS: CALCIUM 8.7 mg/dL (8.5-10.1); CREATININE 1.5 mg/dL (0.55-1.3); MAGNESIUM 1.8 mg/dL (1.8-2.4); PHOSPHOROUS 3.8 mg/dL (2.5-4.9); POTASSIUM 3.8 mmol/L (3.5-5.1)
[2019-06-18] MEDS: INSULIN SLIDING SCALE (NOVOLOG) 1 VIAL SQ SCH ×3 (07:27→17:04)
--- NOTE | 2019-06-18 08:47 | PN ---
Teaching Attending Note Name of Resident: Raj Gage ATTENDING PHYSICIAN STATEMENT I saw and evaluated the patient. I reviewed the resident's note and discussed the case with the resident. I agree with the resident's findings and plan as documented. ASSESSMENT AND PLAN: Pt is a 58 y/o F with extensive PMH including HFrEF, HTN, DVT with PE on AC and noncompliance with medications/therapies who presented to ED with SOB likely related to CHF. 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
[2019-06-18] MEDS: SPIRONOLACTONE 25 MG TABLET (FP) PO SCH (09:13)
[2019-06-18] MEDS: LIDOCAINE 5% TOPICAL PATCH TP SCH (09:14)
[2019-06-18] MEDS: oxyCODONE HCL 10 MG SUSTAINED ACTING TABLET PO SCH (09:14)
[2019-06-18] MEDS: APIXABAN 5 MG TABLET PO SCH ×2 (09:14→21:15)
[2019-06-18] MEDS: CARVEDILOL 25 MG TABLET (FP) PO SCH ×2 (09:14→21:14)
[2019-06-18] MEDS: POLYETHYLENE GLYCOL 3350 119 GM BTL PO SCH (09:16)
[2019-06-18] MEDS: LISINOPRIL 5 MG TABLET (FP) PO SCH (09:16)
--- NOTE | 2019-06-18 09:16 | CONSULT ---
Consult - text type - Consultation Consultation Note: Neurology Chief Complaint: Shortness of breath History of Present Illness: 58 years old morbidly obese female noncompliant, previous hospitalized in December 2018, chronic back pain and knee pain, patient has multiple comorbidities including history of hypertension, systolic heart failure with ejection fraction 30 to 35% in December 2018, NYHA class III, nonischemic cardiomyopathy status post creatinine May 2018, noncompliant with Lasix, also history of morbid obesity, GERD, presented to ED with complaint of gradually worsening shortness of breath orthopnea and PND, patient states she is noncompliant with her Lasix because of frequent urination, patient also has history of pulmonary embolism for that she takes Eliquis, on arrival to the moderate respiratory distress, received IV Lasix 40 mg with appropriate response, patient denies any chest pain, palpitation, nausea vomiting or diarrhea 83 days, exercise decreased from one half block to few steps also complains of 4 pillows orthopnea and lower extremity swelling. BNP triple from baseline. I was consulted for evaluation due to abnormal CT finding of possible demyelination or gliosis. The patient does report occasional headaches and also with some neck pain. I was contacted by the resident yesterday regarding the console and advised having MRI of the brain completed for further evaluation which was completed overnight and demonstrated findings more consistent with gliosis unlikely to be as patient also without any focal deficits and on examination this morning at baseline neurologically. Discussed the results with her in detail and she was reassured that there was no significant abnormalities in her brain and we discussed that she did have prior head trauma which may be the etiology for her gliosis. - Past Medical History Cardiovascular: Yes: CHF, HTN. No: Deep Vein Thrombosis (pt denies) Pulmonary: Yes: Pulmonary Embolus (May 2018 - on Eliquis) Gastrointestinal: Yes: Constipation, GERD Renal/: Yes: Renal Inusuff ...LMP: 09/23/13 Heme/Onc: Yes: Anemia Psych: Yes: Depression, Other (chronic opioid use) Musculoskeletal: Yes: Chronic low back pain, Osteoarthritis (left knee pain requiring replacement) Endocrine: Yes: Diabetes Mellitus ("they told me I have it, but don't need meds anymore") - Past Surgical History Past Surgical History: Yes: None - Smoking History Smoking history: Unknown if ever smoked Have you smoked in the past 12 months: No - Alcohol/Substance Use Hx Alcohol Use: No History of Substance Use: reports: Prescription (chronic use Percocet, under care of pain management doctors) - Social History ADL: Independent (usually) Home Medications - Allergies Allergies/Adverse Reactions: Allergies Allergy/AdvReac Type Severity Reaction Status Date / Time No Known Allergies Allergy Verified 06/16/19 15:37 - Home Medications Home Medications: Ambulatory Orders Carvedilol [Coreg] 25 mg PO BID 08/03/17 Cyclobenzaprine HCl 10 mg PO DAILY 08/04/17 Oxycodone HCl/Acetaminophen [Oxycodone-Acetaminophen 10-325] 1 each PO Q8H PRN MDD 3/day 08/04/17 Quetiapine Fumarate [Seroquel -] 200 mg PO HS 08/04/17 Venlafaxine HCl ER [Effexor Xr -] 75 mg PO TID 01/12/18 Zolpidem Tartrate [Ambien] 10 mg PO HS 01/12/18 Apixaban [Eliquis -] 5 mg PO BID 01/03/19 Gabapentin [Neurontin -] 400 mg PO Q8H 01/03/19 Lisinopril [Zestril] 2.5 mg PO DAILY 01/03/19 Ranitidine [Zantac -] 150 mg PO BID 01/03/19 Spironolactone [Aldactone -] 25 mg PO DAILY 01/03/19 Apixaban [Eliquis -] 5 mg PO BID tablet 01/07/19 Docusate Sodium [Colace -] 100 mg PO TID capsule 01/07/19 Insulin Sliding Scale [Novolog Vial Sliding Scale -] 1 vial SQ ACHS units 01/07 Lidocaine 5% Patch [Lidoderm -] 2 patch TP DAILY patch 01/07/19 Lidocaine Patch Removal [Lidoderm Patch Removal] 1 each MC DAILY@2200 each 10/23 Lidocaine Patch Removal [Lidoderm Patch Removal] 1 each MC DAILY@2200 each 10/23 Lisinopril [Prinivil] 2.5 mg PO DAILY tablet 01/07/19 Polyethylene Glycol 3350 [Miralax 119 gm Btl -] 17 gm PO DAILY bottle 01/07/19 Sennosides [Senna -] 2 tab PO HS tablet 01/07/19 oxyCODONE HCL [Roxicodone -] 10 mg PO Q6H PRN tablet MDD 4 01/07/19 Lidocaine 5% Patch [Lidoderm Patch -] 1 patch TP DAILY #30 patch 04/28/19 Oxycodone HCl/Acetaminophen [Percocet 5/325 -] 2 tab PO Q8H #12 tablet MDD 6 Family Medical History Family Hx Cancer: Father (Father had cancer) Family Hx Cardiac Disorders: Mother (Hypertension, CHF), Father (-) Review of Systems - Review of Systems Constitutional: denies: Chills, Diaphoresis, Fever, Lethargy Eyes: denies: Blind Spots, Blurred Vision, Double Vision, Eye Pain HENT: denies: Difficult Swallowing, Ear Discharge, Ear Pain, Epistaxis Neck: denies: Decreased ROM, Lumps, Pain on Movement Cardiovascular: reports: Edema, Shortness of Breath. denies: Chest Pain Respiratory: reports: Exercise Intolerance, Orthopnea. denies: Hemoptysis Gastrointestinal: denies: Abdominal Pain, Bloating, Constipation, Diarrhea Genitourinary: denies: Burning, Discharge, Dysuria, Flank Pain Breasts: reports: Breast Implants Musculoskeletal: reports: Back Pain Psychiatric: reports: Altered Sleep Pattern, Depression Physical Examination Vital Signs Period Temp Pulse Resp BP Sys/Vilchis Pulse Ox Last 24 Hr 98.3 F-99.0 F 79-99 18-20 118-146/68-90 99-100 General: Obese female, comfortable, not in distress, asking for pain medications HEENT; mucous membranes moist, no anemia, no jaundice, PERRLA, no nystagmus Neck: No JVD, supple, no bruit, thyroid palpably normal, normal carotid pulsations. Chest: Non-tender, bilateral basal rales. CVS: S1-S2 regular no murmur/gallop/rub Abdomen: Nondistended, soft, bowel sounds present. 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: AO X3 , no gross motor sensory deficit Neuro: cranial nerves intact, strength in upper and lower extremities equal and at baseline, sensory intact, finger to nose normal CBCD WBC 8.8 K/mm3 (4.0-10.0) 06/18/19 05:35 RBC 3.88 M/mm3 (3.60-5.2) 06/18/19 05:35 Hgb 8.9 GM/dL (10.7-15.3) L 06/18/19 05:35 Hct 28.7 % (32.4-45.2) L 06/18/19 05:35 MCV 74.0 fl (80-96) L 06/18/19 05:35 MCHC 31.2 g/dl (32.0-36.0) L 06/18/19 05:35 RDW 15.6 % (11.6-15.6) 06/18/19 05:35 Plt Count 469 K/MM3 (134-434) H 06/18/19 05:35 MPV 7.5 fl (7.5-11.1) 06/18/19 05:35 CMP Sodium 137 mmol/L (136-145) 06/18/19 05:35 Potassium 3.8 mmol/L (3.5-5.1) 06/18/19 05:35 Chloride 105 mmol/L (98-107) 06/18/19 05:35 Carbon Dioxide 26 mmol/L (21-32) 06/18/19 05:35 Anion Gap 7 MMOL/L (8-16) L 06/18/19 05:35 BUN 24.0 mg/dL (7-18) H 06/18/19 05:35 Creatinine 1.5 mg/dL (0.55-1.3) H 06/18/19 05:35 Random Glucose 116 mg/dL (74-106) H 06/18/19 05:35 Calcium 8.7 mg/dL (8.5-10.1) 06/18/19 05:35 Total Bilirubin 0.1 mg/dL (0.2-1) L 06/16/19 16:05 AST 16 U/L (15-37) 06/16/19 16:05 ALT 17 U/L (13-61) 06/16/19 16:05 Alkaline Phosphatase 102 U/L (45-117) 06/16/19 16:05 Total Protein 7.2 g/dl (6.4-8.2) 06/16/19 16:05 Albumin 3.3 g/dl (3.4-5.0) L 06/16/19 16:05 CARDIAC ENZYMES Troponin I < 0.02 ng/ml (0.00-0.05) 06/16/19 16:05 Plan: 58 years old morbidly obese female noncompliant, previous hospitalized in December 2018, chronic back pain and knee pain, patient has multiple comorbidities including history of hypertension, systolic heart failure with ejection fraction 30 to 35% in December 2018, NYHA class III, nonischemic cardiomyopathy status post creatinine May 2018, noncompliant with Lasix, also history of morbid obesity, GERD, presented to ED with complaint of gradually worsening shortness of breath orthopnea and PND, patient states she is noncompliant with her Lasix because of frequent urination, patient also has history of pulmonary embolism for that she takes Eliquis, on arrival to the moderate respiratory distress, received IV Lasix 40 mg with appropriate response, patient denies any chest pain, palpitation, nausea vomiting or diarrhea 83 days, exercise decreased from one half block to few steps also complains of 4 pillows orthopnea and lower extremity swelling. BNP triple from baseline. I was consulted for evaluation due to abnormal CT finding of possible demyelination or gliosis. The patient does report occasional headaches and also with some neck pain. I was contacted by the resident yesterday regarding the console and advised having MRI of the brain completed for further evaluation which was completed overnight and demonstrated findings more consistent with gliosis unlikely to be as patient also without any focal deficits and on examination this morning at baseline neurologically. Discussed the results with her in detail and she was reassured that there was no significant abnormalities in her brain and we discussed that she did have prior head trauma which may be the etiology for her gliosis. Continue cardiac optimization, CHF management as per primary team and cardiology. Monitor diabetes, maintain euglycemic range. Neurologically, does not require further workup or management at this time.
--- NOTE | 2019-06-18 11:28 | PN ---
Progress Note (short form) - Note Progress Note: s: breathing better today. had been eating soups, packaged food at home as well as missed lasix doses, has soup container at bedside here. no chest pain, palps, dizziness. Current Medications Acetaminophen (Tylenol -) 325 mg PO Q6H PRN PRN Reason: PAIN LEVEL 6-10 Last Admin: 06/18/19 05:20 Dose: 325 mg Apixaban (Eliquis -) 5 mg PO BID [facility] Last Admin: 06/18/19 09:14 Dose: 5 mg Carvedilol (Coreg -) 25 mg PO BID [facility] Last Admin: 06/18/19 09:14 Dose: 25 mg Docusate Sodium (Colace -) 100 mg PO TID [facility] Last Admin: 06/18/19 05:19 Dose: 100 mg Famotidine (Pepcid -) 20 mg PO BID [facility] Last Admin: 06/18/19 09:13 Dose: 20 mg Ferrous Sulfate (Feosol -) 325 mg PO DAILY [facility] Furosemide (Lasix Injection -) 40 mg IVPUSH DAILY [facility] Last Admin: 06/18/19 09:14 Dose: 40 mg Insulin Aspart (Novolog Vial Sliding Scale -) 1 vial SQ TIDAC [facility]; Protocol Last Admin: 06/18/19 07:27 Dose: Not Given Lidocaine (Lidoderm Patch -) 1 patch TP DAILY [facility] Last Admin: 06/18/19 09:14 Dose: 1 patch Lisinopril (Prinivil) 5 mg PO DAILY [facility] Last Admin: 06/18/19 09:16 Dose: 5 mg Oxycodone HCl (Roxicodone -) 10 mg PO Q6H PRN PRN Reason: PAIN LEVEL 6-10 Last Admin: 06/18/19 05:19 Dose: 10 mg Oxycodone HCl (Oxycontin -) 10 mg PO BID [facility] Last Admin: 06/18/19 09:14 Dose: 10 mg Polyethylene Glycol (Miralax (For Daily Use) -) 17 gm PO DAILY [facility] Last Admin: 06/18/19 09:16 Dose: 17 grams Spironolactone (Aldactone -) 25 mg PO DAILY [facility] Last Admin: 06/18/19 09:13 Dose: 25 mg Vital Signs Period Temp Pulse Resp BP Sys/Vilchis Pulse Ox Last 24 Hr 97.6 F-99.0 F 82-99 20-20 118-146/68-99 99-100 Constitutional: Yes: Well Nourished, No Distress, Obese Eyes: No: Sclera Icterus HENT: No: Nasal Congestion Neck: No: Decreased ROM Respiratory: Yes: CTA Bilaterally. No: Accessory Muscle Use, Rales, Wheezes Gastrointestinal: Yes: Normal Bowel Sounds. No: Distention, Hepatomegaly, Palpable Mass, Tenderness Cardiovascular: Yes: Regular Rate and Rhythm JVD: No Carotid Bruit: No PMI: Non-Displaced Heart Sounds: Yes: S1, S2. No: Gallop Murmur: No: Systolic Murmur, Diastolic Murmur Musculoskeletal: Yes: Other (No kyphosis) Extremities: No: Cool, Cyanosis Edema: No Integumentary: No: Jaundice Neurological: Yes: Alert, Oriented (x3) Psychiatric: No: Agitated Assessment/Plan Echo 12/23: severe global LV hypo (30-35%). nl RV. mild MR. CXR: clear lungs/pleura ECG: NSR, LVH--no signif change tele: sinus SOB, Non-ischemic CM, acute HFrEF: -home regimen carvedilol 25 bid, lisinopril 2.5 qd (increased to 5 here), spironolactone 25 qd--continue same -wt 263-269 standing scale when here 01/23. office wt 270 in 02/22, today's weight 269 lbs -BNP 1700 (from 500 in 12/23). cxr clear. ? anemia triggered. -sx's compatible with volume excess, in setting of non-compliance with lasix. no volume on very tds exam (habitus). - breathing improved with IV lasix, still dyspnea with exertion however improved - cont IV lasix for now - dietary and med compliance encouraged -prior w/u with unremarkable cath. 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 -EF 30-35% here 12/23. per d/w dr melgar, last echo with definity and CMR were c /w EF >35% hence ICD deferred--he will reassess with outpt imaging with contrast -rec outpt sleep study (? reversible etiology of CMP) anemia: -hgb 8s, stable here. down slightly from last admit -on eliquis, appeas iron deficient, manage per heme History of pulmonary embolism 05/24--remains on eliquis -seen by heme when here 12/23 for risk stratification and NOAC duration rec.s; impression/plan at that time was "pt withsignificant risk factors for recurrence -- morbid obesity, immobilization, rec'd thrombophilia w/u (protein C /S, ATIII, FVL, prothrombin gene mutatioon, APLA panel) given unprovoked event as may help determine risk of recurrence. Antithrombin may be decreased on heparin but if normal, will r/o deficiency. If work-up is negative, would use outpatient d-dimer for futher risk stratification" -heme following - continuing eliquis HTN: -bp not optimal -titrating ROMI up, observe trend Morbid obesity
[2019-06-18] MEDS: FERROUS SO4 325 MG TABLET (FP) PO SCH (12:54)
[2019-06-18 14:57] VITALS: BMI 43.4
--- NOTE | 2019-06-18 21:24 | PN ---
Physical Exam: SUBJECTIVE: Patient seen and examined; no acute events overnight. Cr slightly increased to 1.5 which likely represents CKD as opposed to a true TEDDY especially given her chronically fluid overloaded state. Holding PM dose of lasix today. Following PM BMP and if elevated will consult Dr. Gaitan. 10 sys ROS done and negative aside from HPI OBJECTIVE: Vital Signs Period Temp Pulse Resp BP Sys/Vilchis Pulse Ox Last 24 Hr 97.6 F-98.7 F 79-99 20-20 118-146/75-99 99 GENERAL: The patient is awake, alert, and fully oriented, in no acute distress. HEAD: Normal with no signs of trauma. EYES: PERRL, extraocular movements intact, sclera anicteric, conjunctiva clear. No ptosis. ENT: Ears normal, nares patent, oropharynx clear without exudates, moist mucous membranes. NECK: Trachea midline, full range of motion, supple. LUNGS: Breath sounds equal, clear to auscultation bilaterally, no wheezes, no crackles, no accessory muscle use. HEART: Regular rate and rhythm, S1, S2 without murmur, rub or gallop. ABDOMEN: Soft, nontender, nondistended, normoactive bowel sounds, no guarding, no rebound, no hepatosplenomegaly, no masses. EXTREMITIES: 2+ pulses, warm, well-perfused, no edema. NEUROLOGICAL: Cranial nerves II through XII grossly intact. Normal speech, gait not observed. PSYCH: Normal mood, normal affect. SKIN: Warm, dry, normal turgor, no rashes or lesions noted Laboratory Results - last 24 hr 06/18/19 06/18/19 06/18/19 05:35 05:35 05:35 WBC 8.8 RBC 3.88 Hgb 8.9 L Hct 28.7 L MCV 74.0 L MCH 23.1 L MCHC 31.2 L RDW 15.6 Plt Count 469 H MPV 7.5 Retic Count 1.91 H Sodium 137 Potassium 3.8 Chloride 105 Carbon Dioxide 26 Anion Gap 7 L BUN 24.0 H Creatinine 1.5 H Est GFR (CKD-EPI)AfAm 43.74 Est GFR (CKD-EPI)NonAf 37.74 POC Glucometer Random Glucose 116 H Calcium 8.7 Phosphorus 3.8 Magnesium 1.8 Iron TIBC Iron Saturation Unsaturated IBC Ferritin Vitamin B12 Serum Folate TSH 06/18/19 06/18/19 06/18/19 05:35 05:35 06:09 WBC RBC Hgb Hct MCV MCH MCHC RDW Plt Count MPV Retic Count Sodium Potassium Chloride Carbon Dioxide Anion Gap BUN Creatinine Est GFR (CKD-EPI)AfAm Est GFR (CKD-EPI)NonAf POC Glucometer 143 Random Glucose Calcium Phosphorus Magnesium Iron 23 L TIBC 478 H Iron Saturation 4 L Unsaturated IBC 455 H Ferritin 22.6 Vitamin B12 683 Serum Folate 20 H TSH 1.14 06/18/19 06/18/19 06/18/19 11:13 17:03 21:13 WBC RBC Hgb Hct MCV MCH MCHC RDW Plt Count MPV Retic Count Sodium Potassium Chloride Carbon Dioxide Anion Gap BUN Creatinine Est GFR (CKD-EPI)AfAm Est GFR (CKD-EPI)NonAf POC Glucometer 157 109 138 Random Glucose Calcium Phosphorus Magnesium Iron TIBC Iron Saturation Unsaturated IBC Ferritin Vitamin B12 Serum Folate TSH Active Medications Generic Name Dose Route Start Last Admin Trade Name Freq PRN Reason Stop Dose Admin Acetaminophen 325 mg 06/17/19 10:27 06/18/19 21:16 Tylenol - PO 325 mg Q6H PRN Administration PAIN LEVEL 6-10 Apixaban 5 mg 06/16/19 22:00 06/18/19 21:15 Eliquis - PO 5 mg BID [facility] Administration Carvedilol 25 mg 06/16/19 22:00 06/18/19 21:14 Coreg - PO 25 mg BID [facility] Administration Docusate Sodium 100 mg 06/16/19 22:00 06/18/19 21:14 Colace - PO 100 mg TID [facility] Administration Famotidine 20 mg 06/16/19 22:00 06/18/19 21:14 Pepcid - PO 20 mg BID [facility] Administration Ferrous Sulfate 325 mg 06/18/19 10:30 06/18/19 12:54 Feosol - PO 325 mg DAILY [facility] Administration Furosemide 40 mg 06/18/19 10:00 06/18/19 09:14 Lasix Injection - IVPUSH 40 mg DAILY [facility] Administration Insulin Aspart 1 vial 06/16/19 18:00 06/18/19 17:04 Novolog Vial Sliding Scale - SQ Not Given [facility] Protocol Lidocaine 1 patch 06/17/19 10:00 06/18/19 09:14 Lidoderm Patch - TP 1 patch DAILY [facility] Administration Lisinopril 5 mg 06/17/19 10:00 06/18/19 09:16 Prinivil PO 5 mg DAILY [facility] Administration Oxycodone HCl 10 mg 06/17/19 10:26 06/18/19 21:15 Roxicodone - PO 10 mg Q6H PRN Administration PAIN LEVEL 6-10 Oxycodone HCl 10 mg 06/17/19 10:40 06/18/19 09:14 Oxycontin - PO 10 mg BID [facility] Administration Polyethylene Glycol 17 gm 06/17/19 10:00 06/18/19 09:16 Miralax (For Daily Use) - PO 17 grams DAILY [facility] Administration Spironolactone 25 mg 06/17/19 10:00 06/18/19 09:13 Aldactone - PO 25 mg DAILY [facility] Administration Consultations reviewed ASSESSMENT/PLAN: Seen and examined; improved and off O2 but still having exercise intolerance. She has NICM with acute on chronic severe HFrEF exacerbation secondary to viral myocarditis with prior cardiac MRI as discussed in CV notes. she has a history of PE in 2018 and is on eliquis and is an uncontrolled diabtic. She was being evaluated for LVAD and ultimate management of her severe chronic condition is per CV. She informs me that she was told that she had CKD in the past but forgets who she saw or the details regarding her disease. Discontinued dawn yday. she is making urine and has no new complaints. Problems are: -Acute on chronic NYHA-IV HFrEF secondary to NICM due to myocarditis *Per CV: -EF 30-35% here 12/23. per d/w dr melgar, last echo with definity and CMR were c/w EF >35% hence ICD deferred--he will reassess with outpt imaging with contrast. -If remains improved in Am likely PO and DC home with close CV followup. Needs CM and SW to arrange for STER[employer] PROCESS TECH. Would benefit from cardiac rehab and potential pulmonary rehab. Consdiering other etiologies of the chronic respiratory failure including anemia and pickwickian syndrome alongside underlying AMANDA, etc. -Likely CKD (Rechecking BMP; if increased inpatient consult but if not can discuss with nephro and likely followup OP. Likely underlying medical renal disease and she reveals that she was referred to nephrology several years ago for this) -History of PE (hypercoag workup; unclear history with elements of noncompliance apparent so consulting hematology) -Iron Deficiency Anemia (Iron replacement, monitor CBC) -History of GERD -History of chronic pain secondary to DJD in knee pending sgy -Noncompliance (Ehs Teacher prior to DC) -Thrombocytosis (Trend, FU heme recs) -History of HTN (Continue current medications; controlled. Defer further changes to CV consultation) -History HLD (No new issues; OP FLP and statin titration -Nonobstructing CAD (No acute symptoms, per CV) -Morbid obesity (Bariatric referral) -Suspected AMANDA (On narcotics with BMI 43; eval for AMANDA and refer to pulmonary. Contributes to her chronic problems and she may need home CPAP) -Opioid Dependence (Strongly suggest weaning as OP) Full Code Likely DC in AM home with services. Visit type - Emergency Visit Emergency Visit: Yes ED Registration Date: 06/16/19 Care time: The patient presented to the Emergency Department on the above date and was hospitalized for further evaluation of their emergent condition. - New Patient This patient is new to me today: No - Critical Care Critical Care patient: No - Discharge Referral Referred to [facility] Med [facility] No
--- NOTE | 2019-06-18 21:43 | PN ---
Progress Note (short form) - Note Progress Note: UPDATE: Pt refusing PM labs. States she had labs performed today and does not want more today. Discussed necessity of getting PM labs which if normalized can lead to her being discharged and pt did not want to be discharged today. After lengthy discussion pt agrees with potential d/c tomorrow if TEDDY has resolved. Also discussed importance of medication adherence once more during this conversation HPI: No acute events overnight. Pt with improved pain control. Discussed importance of medication adherence. Denies any SOB, CP, palpitations, lightheadedness/dizziness. Telemetry: No significant events noted Vital Signs Temperature 98.2 F 06/18/19 17:00 Pulse Rate 81 06/18/19 17:00 Respiratory Rate 20 06/18/19 17:00 Blood Pressure 129/78 06/18/19 17:00 O2 Sat by Pulse Oximetry (%) 99 06/18/19 07:54 PE: GEN: NAD, awake, alert, oriented x3 HEENT: Nc/AT, LULA, sclera anicteric, MMM Neck: No JVD noted Lung: Increased aeration b/l at the bases with distant lung sounds. No wheezes. CARD: RRR no murmurs appreciated. Distant ABD: Soft, obese, NT/ND, normoactive BS, no guarding EXT: No edema. Pulses 2+ b/l. CBC, BMP 06/18/19 05:35 06/18/19 05:35 Active Medications Acetaminophen (Tylenol -) 325 mg PO Q6H PRN PRN Reason: PAIN LEVEL 6-10 Last Admin: 06/18/19 21:16 Dose: 325 mg Apixaban (Eliquis -) 5 mg PO BID [facility] Last Admin: 06/18/19 21:15 Dose: 5 mg Carvedilol (Coreg -) 25 mg PO BID [facility] Last Admin: 06/18/19 21:14 Dose: 25 mg Docusate Sodium (Colace -) 100 mg PO TID [facility] Last Admin: 06/18/19 21:14 Dose: 100 mg Famotidine (Pepcid -) 20 mg PO BID [facility] Last Admin: 06/18/19 21:14 Dose: 20 mg Ferrous Sulfate (Feosol -) 325 mg PO DAILY [facility] Last Admin: 06/18/19 12:54 Dose: 325 mg Furosemide (Lasix Injection -) 40 mg IVPUSH DAILY [facility] Last Admin: 06/18/19 09:14 Dose: 40 mg Insulin Aspart (Novolog Vial Sliding Scale -) 1 vial SQ TIDAC [facility]; Protocol Last Admin: 06/18/19 17:04 Dose: Not Given Lidocaine (Lidoderm Patch -) 1 patch TP DAILY [facility] Last Admin: 06/18/19 09:14 Dose: 1 patch Lisinopril (Prinivil) 5 mg PO DAILY [facility] Last Admin: 06/18/19 09:16 Dose: 5 mg Oxycodone HCl (Roxicodone -) 10 mg PO Q6H PRN PRN Reason: PAIN LEVEL 6-10 Last Admin: 06/18/19 21:15 Dose: 10 mg Oxycodone HCl (Oxycontin -) 10 mg PO BID [facility] Last Admin: 06/18/19 09:14 Dose: 10 mg Polyethylene Glycol (Miralax (For Daily Use) -) 17 gm PO DAILY [facility] Last Admin: 06/18/19 09:16 Dose: 17 grams Spironolactone (Aldactone -) 25 mg PO DAILY [facility] Last Admin: 06/18/19 09:13 Dose: 25 mg Assessment and Plan: Acute on chronic systolic heart failure Acute metabolic encephalopathy 2/2 to medications (resolved) Acute kidney insufficiency Iron deficiency anemia Gliosis incidentally found on CT Type 2 DM Chronic back pain Morbid obesity History of PE (2018) --Pt with acute volume overload because of noncompliance with diuretics --Markedly improved with diuresis --Decreased to IVP once today; Changed Lasix to PO for tomorrow --Will need to be d/c with Lasix and Aldactone --Echocardiogram noted --Continue Aldactone 25mg qdaily --Continue Coreg 25mg BID --Continue Lisinopril to 5mg qdaily and uptitrate as tolerated --Repeat BMP in afternoon for resolution of Cr --Cardiology consulted --Daily weights; weight 122, however unsure of accuracy given different beds and scales compared to previous admission --Physical therapy --Pre/Post not needed due to satisfactory saturation on RA --Provoke PE noted in 2018 due to OCP use. Continue Eliquis 5mg BID PO --Anemia 2/2 to iron deficiency --Started ferrous sulfate 325mg qdaily --repeat CBC in outpatient for improvement --Continue Oxycontin 15mg BID PO scheduled; Percocet 10-325mg q6h PRN --Neurology consultation appreciated --MRI without any significant especially in setting of asymptomatic clinical picture and nonfocal exam --Sleep screening due to morbid obesity --Given BMI >40 would likely benefit from bariatric consultation on outpatient basis FEN: Fluids: Avoid; PO Electrolyte abnormalities: Low-normal K+; repleted to cardiac levels Nutrition: Diabetic/Sodium PPX: DVT - Already on Eliquis GI - Not indicated Dispo: Can d/c cardiac monitoring and transfer M/S Case discussed with Dr. Oscar Magana, DO - IM PGY-3 <Anthony Magana - Last Filed: 06/18/19 21:43> - Note Progress Note: Seen and examined; please see resident note for further discussion. Agree with their note including assessment and plan as outlined aside from as supplemented myself. Independently reviewed and verified all jaimes historical and PE findings as well as labs and imaging. Discussed at length with resident and consulting services. Aside from above no overnight events indicated VS, labs, imaging reviewed NAD AAO resting in bed NC AT EOMI PERRLA RRR s1/2 Lungs CTAB, w/ sym exp NT ND +BS CN2-12 wnl, no fnd Normal mood, appropriate behavior No new rashes or skin breakdown noted Trachea midline without lymphadenopathy A/P: <Brady Moore - Last Filed: 06/18/19 22:03>
[2019-06-19] MEDS ORDERED: MELATONIN 5 MG TABLETS PO ONE (00:22)
[2019-06-19] MEDS: oxyCODONE HCL 10 MG SUSTAINED ACTING TABLET PO SCH ×2 (00:37→09:24)
[2019-06-19] MEDS: oxyCODONE HCL 5 MG TABLET PO PRN (03:58)
[2019-06-19] MEDS: ACETAMINOPHEN 325 MG TABLET (FP) PO PRN (03:59)
[2019-06-19] MEDS: DOCUSATE SODIUM 100 MG CAPSULE (FP) PO SCH (06:13)
[2019-06-19] MEDS: INSULIN SLIDING SCALE (NOVOLOG) 1 VIAL SQ SCH ×2 (06:14→11:16)
[2019-06-19 07:12] LABS: HEMATOCRIT 27.6 % (32.4-45.2); HEMOGLOBIN 8.7 GM/dL (10.7-15.3); MCH 23.6 pg (25.7-33.7); MCHC 31.7 g/dl (32.0-36.0); MEAN CELL VOLUME 74.4 fl (80-96); MEAN PLT VOLUME 7.5 fl (7.5-11.1); PLATELET COUNT 443 K/MM3 (134-434); RDW 15.6 % (11.6-15.6); WHITE BLOOD COUNT 8.7 K/mm3 (4.0-10.0)
--- NOTE | 2019-06-19 07:22 | DS ---
Physical Exam: SUBJECTIVE: No acute events. No telemetry events. Denies SOB, CP, palpitations. No new complaints. OBJECTIVE: Vital Signs Period Temp Pulse Resp BP Sys/Vilchis Pulse Ox Last 24 Hr 97.6 F-98.7 F 79-97 20-20 113-146/78-99 98-99 PHYSICAL EXAM PE: GEN: NAD, awake, alert, oriented x3 HEENT: Nc/AT, LULA, sclera anicteric, MMM Neck: No JVD noted Lung: Increased aeration b/l at the bases with distant lung sounds. No wheezes. CARD: RRR no murmurs appreciated. Distant ABD: Soft, obese, NT/ND, normoactive BS, no guarding EXT: No edema. Pulses 2+ b/l. LABS Laboratory Results - last 24 hr 06/18/19 06/18/19 06/18/19 05:35 05:35 11:13 POC Glucometer 157 Iron 23 L TIBC 478 H Iron Saturation 4 L Unsaturated IBC 455 H Ferritin 22.6 Vitamin B12 683 Serum Folate 20 H TSH 1.14 06/18/19 06/18/19 06/19/19 17:03 21:13 05:47 POC Glucometer 109 138 111 Iron TIBC Iron Saturation Unsaturated IBC Ferritin Vitamin B12 Serum Folate TSH IMAGING: Echocardiogram: Interpretation Summary Technically limited study The left ventricle is moderately dilated. Left ventricular systolic function is severely reduced. There is severe global hypokinesis of the left ventricle. Ejection Fraction = 25-30%. Grade I diastolic dysfunction, (abnormal relaxation pattern). Ratio E/E'= 11 The left atrium is mildly dilated. Right atrial size is normal. There is mild mitral valve thickening. There is mild mitral annular calcification. There is mild mitral regurgitation. Mild pulmonic valvular regurgitation. There is no pericardial effusion. Head CT w/o contrast: Impression. No evidence of acute intracranial hemorrhage midline shift mass effect or hydrocephalus. No CT evidence of acute territorial ischemic changes. Moderate diffuse supratentorial chronic white matter microangiopathic ischemic changes, gliosis, demyelination. Anterior septal defect. Brain MRI w/o contrast: IMPRESSION: Moderate periventricular and subcortical white matter signal changes are noted probably on the basis of chronic microvascular ischemic changes. Please see above. HOSPITAL COURSE: Date of Admission:06/16/19 Date of Discharge: 06/19/19 Pt admitted due to increased dyspnea on exertion found to have volume overload. Pt admittedly stopped taking her Lasix doses at home due to not wanting to urinate as frequently. Pt was maintained on IV diuretics during her stay and was monitored on telemetry for any acute arrhythmias. Pt's home oxycontin and oxycodone doses were continued as confirmed by her pharmacy. Pt never required NIPPV for breathing and her daily weights were monitored as diuresis occurred. Pt's dyspnea improved throughout her hospital stay and she was transitioned to PO Lasix 40mg to maintain her volume status. Pt was also noted to have microcytic anemia which was attributed to iron-deficient anemia. Pt was started on Ferrous Sulfate 325mg qdaily during this stay. Pt's care was overseen by cardiology during her stay. Finally, pt was noted to have incidentally found to potential gliosis vs. demyelination on CT for which she received an MRI. Neurology was consulted and deemed the changes were likely microvascular in nature and not related to any demyelinating syndrome especially without any neurological symptoms Pt is being discharged today in stable condition with strict instructions to continue her diuretics. During her stay pt's Lisinopril was titrated to 5mg qdaily which is to continue. She was provided Rx for Ferrous sulfate 325mg qdaily, Lasix 40mg qdaily, and Lisinopril 5mgqdaily. Pt did NOT receive prescriptions for narcotics due to recent iSTOP report showing dispensed medications Oxycontin ER 15mg tablets #60 on 06/06/2019 (Rx'd on 05/23/2019) and Percocet 10-325mg #120 on 05/29/2019 (Rx'd 05/23/2019). iStop Reference: #[id number] Minutes to complete discharge: 33 <Anthony Magana - Last Filed: 06/19/19 22:37> Physical Exam: Seen and examined; please see resident note for further discussion. Agree with findings as documented above aside from as I have supplemented below. Independently verified all PE findings and jaimes historical information. Reviewed all imaging, labs, and vitals. Discussed at length with subspecialty consults and resident team. No further complaints; no other events noted overnight. O: VS, labs, imaging reviewed NAD, AAO, resting in bed NC AT EOMI PERRLA Lungs without focal findings, w/ sym exp NT ND +BS CN2-12 wnl, no fnd Reviewed all imaging and consults. Neuro input is appreciated. Euvolemic on DC Agree with hospital course and plan as documented in resident note. <Brady Moore - Last Filed: 07/08/19 02:06> Discharge Summary Problems reviewed: Yes Reason For Visit: ACUTE ON CHRONIC CONGESTIVE HEART FAILURE Current Active Problems CHF exacerbation (Acute) Chronic pain (Acute) Depression (Acute) Heart failure, systolic, with acute decompensation (Acute) - Home Medications Comprehensive Discharge Medication List: Ambulatory Orders Carvedilol [Coreg] 25 mg PO BID 08/03/17 Cyclobenzaprine HCl 10 mg PO DAILY 08/04/17 Oxycodone HCl/Acetaminophen [Oxycodone-Acetaminophen 10-325] 1 each PO Q6H PRN MDD 4/day 08/04/17 Quetiapine Fumarate [Seroquel -] 200 mg PO HS 08/04/17 Venlafaxine HCl ER [Effexor Xr -] 75 mg PO TID 01/12/18 Zolpidem Tartrate [Ambien] 10 mg PO HS 01/12/18 Gabapentin [Neurontin -] 400 mg PO Q8H 01/03/19 Ranitidine [Zantac -] 150 mg PO BID 01/03/19 Apixaban [Eliquis -] 5 mg PO BID tablet 01/07/19 Docusate Sodium [Colace -] 100 mg PO TID capsule 01/07/19 Polyethylene Glycol 3350 [Miralax 119 gm Btl -] 17 gm PO DAILY bottle 01/07/19 Sennosides [Senna -] 2 tab PO HS tablet 01/07/19 Lidocaine 5% Patch [Lidoderm -] 1 patch TP DAILY #30 patch 04/28/19 oxyCODONE SR [Oxycontin] 15 mg PO BID 06/17/19 Ferrous Sulfate [Feosol] 325 mg PO DAILY #30 tab 06/18/19 Lisinopril [Prinivil] 5 mg PO DAILY #30 tablet 06/18/19 Spironolactone [Aldactone -] 25 mg PO DAILY #30 tablet 06/18/19 <Anthony Magana - Last Filed: 06/19/19 22:37> - Home Medications Comprehensive Discharge Medication List: Ambulatory Orders Carvedilol [Coreg] 25 mg PO BID 08/03/17 Cyclobenzaprine HCl 10 mg PO DAILY 08/04/17 Oxycodone HCl/Acetaminophen [Oxycodone-Acetaminophen 10-325] 1 each PO Q6H PRN MDD 4/day 08/04/17 Quetiapine Fumarate [Seroquel -] 200 mg PO HS 08/04/17 Venlafaxine HCl ER [Effexor Xr -] 75 mg PO TID 01/12/18 Zolpidem Tartrate [Ambien] 10 mg PO HS 01/12/18 Gabapentin [Neurontin -] 400 mg PO Q8H 01/03/19 Ranitidine [Zantac -] 150 mg PO BID 01/03/19 Apixaban [Eliquis -] 5 mg PO BID tablet 01/07/19 Docusate Sodium [Colace -] 100 mg PO TID capsule 01/07/19 Polyethylene Glycol 3350 [Miralax 119 gm Btl -] 17 gm PO DAILY bottle 01/07/19 Sennosides [Senna -] 2 tab PO HS tablet 01/07/19 Lidocaine 5% Patch [Lidoderm -] 1 patch TP DAILY #30 patch 04/28/19 oxyCODONE SR [Oxycontin] 15 mg PO BID 06/17/19 Ferrous Sulfate [Feosol] 325 mg PO DAILY #30 tab 06/18/19 Lisinopril [Prinivil] 5 mg PO DAILY #30 tablet 06/18/19 Spironolactone [Aldactone -] 25 mg PO DAILY #30 tablet 06/18/19 <Brady Moore - Last Filed: 07/08/19 02:06> Condition: Stable - Instructions Diet, Activity, Other Instructions: You were seen here for your increase of water. The squeeze of your heart is a little weak and you need diuretics to help the water stay off. Please take your Lasix as this will help MEDICATION CHANGES: Please take Lasix 40mg by mouth daily Please take Aldactone 25mg by mouth daily You will need iron supplement pills to take daily We increased your Lisinopril to 5mg daily to help with your blood pressure Weigh yourself every day and if you start to increase your weight by 2-3 lbs call your doctor or your heart doctor and they will help you FOLLOW-UP: Please follow up with Dr. Elias in 3-5 days for a repeat BMP and to update them on your care Please see Dr. Sol for a sleep apnea test Please see Dr. Fuentes (kidney doctor) who can help you with your kidney numbers if the stay elevated Please see Dr. Padilla or your own litigation secretary for your heart in 1 week Referrals: Rafael Parry MD [Staff Physician] - (Bariatric referral) Matheus Sol MD [Staff Physician] - (Pulmonary function tests and sleep apnea) Efren Padilla MD [Staff Physician] - 1 Week Dino Fuentes MD [Staff Physician] - Jessy Elias [Primary Care Provider] - Disposition: VNS/HOME HEALTH CARE This patient is new to me today: No Emergency Visit: Yes ED Registration Date: 06/16/19 Care time: The patient presented to the Emergency Department on the above date and was hospitalized for further evaluation of their emergent condition. Critical Care patient: No - Discharge Referral Referred to [facility] No <Anthony Magana - Last Filed: 06/19/19 22:37> ATTENDING PHYSICIAN STATEMENT I saw and evaluated the patient. I reviewed the resident's note and discussed the case with the resident. I agree with the resident's findings and plan as documented. SUBJECTIVE: OBJECTIVE: ASSESSMENT AND PLAN: <Anthony Magana - Last Filed: 06/19/19 22:37> ATTENDING PHYSICIAN STATEMENT I saw and evaluated the patient. I reviewed the resident's note and discussed the case with the resident. I agree with the resident's findings and plan as documented. SUBJECTIVE: OBJECTIVE: ASSESSMENT AND PLAN: <Brady Moore - Last Filed: 07/08/19 02:06>
[2019-06-19 07:38] LABS: BLOOD UREA NITROGEN 27.2 mg/dL (7-18); CREATININE 1.4 mg/dL (0.55-1.3); MAGNESIUM 1.9 mg/dL (1.8-2.4); POTASSIUM 3.8 mmol/L (3.5-5.1)
[2019-06-19 08:29] VITALS: BP 105/79; PULSE 89; TEMP 98.5
[2019-06-19] MEDS: FUROSEMIDE 40 MG/4 ML INJECTABLE VIAL IVPUSH SCH (09:24)
[2019-06-19] MEDS: FERROUS SO4 325 MG TABLET (FP) PO SCH (09:25)
[2019-06-19] MEDS: SPIRONOLACTONE 25 MG TABLET (FP) PO SCH (09:26)
[2019-06-19] MEDS: APIXABAN 5 MG TABLET PO SCH (09:26)
[2019-06-19] MEDS: LISINOPRIL 5 MG TABLET (FP) PO SCH (09:26)
[2019-06-19] MEDS: CARVEDILOL 25 MG TABLET (FP) PO SCH (09:26)
[2019-06-19] MEDS: FAMOTIDINE 20 MG TABLET PO SCH ×2 (09:26→10:14)
[2019-06-19] MEDS: LIDOCAINE 5% TOPICAL PATCH TP SCH (09:28)
[2019-06-19] MEDS: POLYETHYLENE GLYCOL 3350 119 GM BTL PO SCH (09:30)
--- NOTE | 2019-06-19 11:05 | PN ---
Progress Note (short form) - Note Progress Note: s: breathing at baseline. no chest pain, palps, dizziness Current Medications Acetaminophen (Tylenol -) 325 mg PO Q6H PRN PRN Reason: PAIN LEVEL 6-10 Last Admin: 06/19/19 03:59 Dose: 325 mg Apixaban (Eliquis -) 5 mg PO BID [facility] Last Admin: 06/19/19 09:26 Dose: 5 mg Carvedilol (Coreg -) 25 mg PO BID [facility] Last Admin: 06/19/19 09:26 Dose: 25 mg Docusate Sodium (Colace -) 100 mg PO TID [facility] Last Admin: 06/19/19 06:13 Dose: 100 mg Famotidine (Pepcid -) 20 mg PO BID [facility] Last Admin: 06/19/19 10:14 Dose: Not Given Ferrous Sulfate (Feosol -) 325 mg PO DAILY [facility] Last Admin: 06/19/19 09:25 Dose: 325 mg Furosemide (Lasix Injection -) 40 mg IVPUSH DAILY [facility] Last Admin: 06/19/19 09:24 Dose: 40 mg Insulin Aspart (Novolog Vial Sliding Scale -) 1 vial SQ TIDAC [facility]; Protocol Last Admin: 06/19/19 06:14 Dose: Not Given Lidocaine (Lidoderm Patch -) 1 patch TP DAILY [facility] Last Admin: 06/19/19 09:28 Dose: 1 patch Lisinopril (Prinivil) 5 mg PO DAILY [facility] Last Admin: 06/19/19 09:26 Dose: 5 mg Oxycodone HCl (Roxicodone -) 10 mg PO Q6H PRN PRN Reason: PAIN LEVEL 6-10 Last Admin: 06/19/19 03:58 Dose: 10 mg Oxycodone HCl (Oxycontin -) 10 mg PO BID [facility] Last Admin: 06/19/19 09:24 Dose: 10 mg Polyethylene Glycol (Miralax (For Daily Use) -) 17 gm PO DAILY [facility] Last Admin: 06/19/19 09:30 Dose: 17 grams Spironolactone (Aldactone -) 25 mg PO DAILY [facility] Last Admin: 06/19/19 09:26 Dose: 25 mg Vital Signs Period Temp Pulse Resp BP Sys/Vilchis Pulse Ox Last 24 Hr 97.6 F-98.7 F 79-97 20-20 105-142/78-88 98 Constitutional: Yes: Well Nourished, No Distress, Obese Eyes: No: Sclera Icterus HENT: No: Nasal Congestion Neck: No: Decreased ROM Respiratory: Yes: CTA Bilaterally. No: Accessory Muscle Use, Rales, Wheezes Gastrointestinal: Yes: Normal Bowel Sounds. No: Distention, Hepatomegaly, Palpable Mass, Tenderness Cardiovascular: Yes: Regular Rate and Rhythm JVD: No Carotid Bruit: No PMI: Non-Displaced Heart Sounds: Yes: S1, S2. No: Gallop Murmur: No: Systolic Murmur, Diastolic Murmur Musculoskeletal: Yes: Other (No kyphosis) Extremities: No: Cool, Cyanosis Edema: No Integumentary: No: Jaundice Neurological: Yes: Alert, Oriented (x3) Psychiatric: No: Agitated Assessment/Plan Echo 12/23: severe global LV hypo (30-35%). nl RV. mild MR. CXR: clear lungs/pleura ECG: NSR, LVH--no signif change tele: sinus SOB, Non-ischemic CM, acute HFrEF: -home regimen carvedilol 25 bid, lisinopril 2.5 qd (increased to 5 here), spironolactone 25 qd--continue same -BNP 1700 (from 500 in 12/23). cxr clear. ? anemia triggered. -sx's compatible with volume excess, in setting of non-compliance with lasix. no volume on very tds exam (habitus). - breathing improved with IV lasix here, advised compliance with meds at home and close follow up with occupational hygienist - dietary and med compliance encouraged -prior w/u with unremarkable cath. 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 -EF 30-35% here 12/23. per d/w dr melgar, last echo with definity and CMR were c /w EF >35% hence ICD deferred--he will reassess with outpt imaging with contrast -rec outpt sleep study (? reversible etiology of CMP) anemia: -hgb 8s, stable here. down slightly from last admit -on eliquis, appears iron deficient, manage per heme History of pulmonary embolism 05/24--remains on eliquis -seen by angelito when here 12/23 for risk stratification and NOAC duration rec.s; impression/plan at that time was "pt withsignificant risk factors for recurrence -- morbid obesity, immobilization, rec'd thrombophilia w/u (protein C /S, ATIII, FVL, prothrombin gene mutatioon, APLA panel) given unprovoked event as may help determine risk of recurrence. Antithrombin may be decreased on heparin but if normal, will r/o deficiency. If work-up is negative, would use outpatient d-dimer for futher risk stratification" -heme following - continuing eliquis HTN: -bp not optimal -titrating ROMI up, observe trend Morbid obesity
[2019-06-20 14:07] LABS: SCLERODERMA 70 AB <0.2 AI (0.0-0.9)
[2019-06-21 03:07] LABS: ANTITHROMBIN ACTIVITY 173 % (75-135)
== END 2019-06-19 12:00 | disposition home health service (06) | DRG 291 ==
LOC: JER 15:25 → JERBED 17:40 → J4W 06-17 03:35
PROVIDERS: ADMIT Internal Medicine; ATTEND Internal Medicine
DX: I13.0 Hypertensive heart and chronic kidney disease with heart failure and stage 1 through stage 4 chronic kidney disease, or unspecified chronic kidney disease (principal); G92 Toxic encephalopathy; I50.23 Acute on chronic systolic (congestive) heart failure; Z68.41 Body mass index [BMI] 40.0-44.9, adult; F11.20 Opioid dependence, uncomplicated; I50.22 Chronic systolic (congestive) heart failure; E66.01 Morbid (severe) obesity due to excess calories; I42.8 Other cardiomyopathies; E78.5 Hyperlipidemia, unspecified; Z91.14 Patient's other noncompliance with medication regimen; Z86.711 Personal history of pulmonary embolism; Z79.01 Long term (current) use of anticoagulants; K21.9 Gastro-esophageal reflux disease without esophagitis; I50.9 Heart failure, unspecified; G89.29 Other chronic pain; F32.9 Major depressive disorder, single episode, unspecified; R94.31 Abnormal electrocardiogram [ECG] [EKG]; Z79.4 Long term (current) use of insulin; T50.995A Adverse effect of other drugs, medicaments and biological substances, initial encounter; I25.10 Atherosclerotic heart disease of native coronary artery without angina pectoris; G47.33 Obstructive sleep apnea (adult) (pediatric); D50.9 Iron deficiency anemia, unspecified; G93.89 Other specified disorders of brain; D47.3 Essential (hemorrhagic) thrombocythemia; E11.22 Type 2 diabetes mellitus with diabetic chronic kidney disease; N18.9 Chronic kidney disease, unspecified
CPT/HCPCS: 36415; 70450-TC; 70551-TC; 71046-TC-FY; 80048; 80053; 81003; 81241; 82607; 82728; 82746; 82803; 82962; 83036; 83540; 83550; 83735; 83880; 84100; 84443; 84484; 84702; 85025; 85027; 85044; 85300; 85303; 86235; 87086; 93005; 93010; 93306-TC; 97116-GP; 97161-GP; 99285-25; J0131

== ENCOUNTER 2019-06-25 02:32 | Emergency (ER) | payer OTHER ==
[2019-06-25 03:02] VITALS: BMI 42.9
--- NOTE | 2019-06-25 03:49 | PDOC ---
*Physical Exam - Vital Signs Last Vital Signs Temp Pulse Resp BP Pulse Ox 98.5 F 105 H 19 111/78 98 06/25/19 02:43 06/25/19 02:43 06/25/19 02:43 06/25/19 02:43 06/25/19 02:43 Medical Decision Making - Medical Decision Making 06/25/19 03:48 Patient seen by the advanced practice provider under my direct supervision. Ancillary testing reviewed as necessary. I agree with plan as outlined by the advanced practice provider. Discharge - Discharge Information Problems reviewed: Yes Clinical Impression/Diagnosis: Abrasion, thigh without infection, Chronic systolic CHF (congestive heart failure), NYHA class 3 Condition: Fair - Follow up/Referral Referrals: Jessy Elias [Primary Care Provider] - 24 hours - Patient Discharge Instructions Patient Printed Discharge Instructions: DI for Abrasion Additional Instructions: follow up with your cardiology today as per plan return to the ER for any worsening symptoms - Post Discharge Activity
--- NOTE | 2019-06-25 03:50 | PDOC ---
History of Present Illness - General Chief Complaint: Puncture Wound Stated Complaint: INJURY/LEG Time Seen by Provider: 06/25/19 03:47 History Source: Patient, Sibling - History of Present Illness Initial Comments: 06/25/19 04:27 58-year-old female with history of CHF complaining of right thigh moderate amount of bleeding after scratching self. Patient reports that she is on Eliquis. Since arrival to the ED no active bleeding is noted. Patient reports slight shortness of breath. Patient reports that she routinely has shortness of breath and has a cardiology appointment today. Denies chest pain, no diaphoresis, nausea, vomiting, abdominal pain. last tetanus unknown Past History - Past Medical History Allergies/Adverse Reactions: Allergies Allergy/AdvReac Type Severity Reaction Status Date / Time No Known Allergies Allergy Verified 06/25/19 02:45 Home Medications: Ambulatory Orders Carvedilol [Coreg] 25 mg PO BID 08/03/17 Cyclobenzaprine HCl 10 mg PO DAILY 08/04/17 Oxycodone HCl/Acetaminophen [Oxycodone-Acetaminophen 10-325] 1 each PO Q6H PRN MDD 4/day 08/04/17 Quetiapine Fumarate [Seroquel -] 200 mg PO HS 08/04/17 Venlafaxine HCl ER [Effexor Xr -] 75 mg PO TID 01/12/18 Zolpidem Tartrate [Ambien] 10 mg PO HS 01/12/18 Gabapentin [Neurontin -] 400 mg PO Q8H 01/03/19 Ranitidine [Zantac -] 150 mg PO BID 01/03/19 Apixaban [Eliquis -] 5 mg PO BID tablet 01/07/19 Docusate Sodium [Colace -] 100 mg PO TID capsule 01/07/19 Polyethylene Glycol 3350 [Miralax 119 gm Btl -] 17 gm PO DAILY bottle 01/07/19 Sennosides [Senna -] 2 tab PO HS tablet 01/07/19 Lidocaine 5% Patch [Lidoderm -] 1 patch TP DAILY #30 patch 04/28/19 oxyCODONE SR [Oxycontin] 15 mg PO BID 06/17/19 Ferrous Sulfate [Feosol] 325 mg PO DAILY #30 tab 06/18/19 Lisinopril [Prinivil] 5 mg PO DAILY #30 tablet 06/18/19 Spironolactone [Aldactone -] 25 mg PO DAILY #30 tablet 06/18/19 Anemia: No Asthma: No Cancer: No Cardiac Disorders: Yes (last EF 15%) CVA: No COPD: No CHF: Yes Dementia: No Diabetes: Yes (not on meds) GI Disorders: Yes (REFLUX) Disorders: No HTN: Yes Hypercholesterolemia: No Liver Disease: No Seizures: No Thyroid Disease: No - Immunization History Immunization Up to Date: Yes - Psycho Social/Smoking Cessation Hx Smoking History: Never smoked Have you smoked in the past 12 months: No Cigars Per Day: 0 Hx Alcohol Use: No Drug/Substance Use Hx: No Substance Use Type: None Hx Substance Use Treatment: No Review of Systems - Review of Systems Able to Perform ROS?: Yes Is the patient limited [place] proficient: No Respiratory: Yes: Shortness of Breath Integumentary: Yes: Other (bleeding) *Physical Exam - Vital Signs Last Vital Signs Temp Pulse Resp BP Pulse Ox 98.5 F 105 H 19 111/78 98 06/25/19 02:43 06/25/19 02:43 06/25/19 02:43 06/25/19 02:43 06/25/19 02:43 - Physical Exam General Appearance: Yes: Appropriately Dressed Respiratory/Chest: positive: Lungs Clear, Normal Breath Sounds. negative: Rales Extremity: positive: Other (abrasion to right thigh. no active bleeding) Integumentary: positive: Normal Color, Dry, Warm Neurologic: positive: consulting intern II-XII NML intact, Fully Oriented, Alert, Normal Mood/ Affect Medical Decision Making - Medical Decision Making Abrasion: No active bleeding tetanus updated chest xray: imporved from recent visit 06/25/19 05:46 patient has chronic pain takes percocet. will give one dose here for left knee pain 06/25/19 06:30 Discharge - Discharge Information Problems reviewed: Yes Clinical Impression/Diagnosis: Abrasion, thigh without infection, Chronic systolic CHF (congestive heart failure), NYHA class 3 Condition: Fair - Follow up/Referral Referrals: Jessy Elias [Primary Care Provider] - 24 hours - Patient Discharge Instructions Patient Printed Discharge Instructions: DI for Abrasion Additional Instructions: follow up with your cardiology today as per plan return to the ER for any worsening symptoms - Post Discharge Activity
[2019-06-25] MEDS ORDERED: TETANUS AND DIPHTHERIA TOXOID 0.5 ML DISP.SYRIN IM ONE (04:14)
[2019-06-25 05:43] VITALS: BP 123/74; PULSE 90; TEMP 98.1
== END 2019-06-25 05:50 | disposition home or self-care (01) ==
LOC: JER 02:32
PROC: 3E0234Z Introduction of Serum, Toxoid and Vaccine into Muscle, Percutaneous Approach (ICD-10-PCS; principal; 2019-06-25)
DX: I11.0 Hypertensive heart disease with heart failure (principal); I50.22 Chronic systolic (congestive) heart failure; S70.311A Abrasion, right thigh, initial encounter; I25.10 Atherosclerotic heart disease of native coronary artery without angina pectoris; E11.9 Type 2 diabetes mellitus without complications; K21.9 Gastro-esophageal reflux disease without esophagitis; Z79.01 Long term (current) use of anticoagulants; X58.XXXA Exposure to other specified factors, initial encounter; Y93.89 Activity, other specified; Y92.89 Other specified places as the place of occurrence of the external cause; Y99.8 Other external cause status
CPT/HCPCS: 71046-TC-FY; 90471; 99281-25

== ENCOUNTER 2019-08-08 12:39 | Emergency (ER) | payer OTHER ==
--- NOTE | 2019-08-08 13:01 | PDOC ---
History of Present Illness - General Chief Complaint: Shortness of Breath Stated Complaint: SOB Time Seen by Provider: 08/08/19 13:01 - History of Present Illness Initial Comments: 08/08/19 13:01 58 year old female with PMH morbid obesity, HTN, HLD, CHF (EF <15%) noncompliant with lasix, PE (05/24) on Eliquis, chronic lower extremity pain, GERD, cholelithiasis presented to ED who presents with productive cough for one day. She reports her cough is productive of clear phlegm and she had some slight shortness of breath. She reports that she is now compliant with lasix however was previously noncompliant due to the increased urination side effect ROS GENERAL/CONSTITUTIONAL: No fever or chills. No weakness. HEAD, EYES, EARS, NOSE AND THROAT: No sore throat. CARDIOVASCULAR: No chest pain or shortness of breath RESPIRATORY: + cough, wheezing, or hemoptysis. GASTROINTESTINAL: No nausea, vomiting, diarrhea or constipation. GENITOURINARY: No dysuria, frequency, or change in urination. MUSCULOSKELETAL: No joint or muscle swelling or pain. No neck or back pain. SKIN: No rash NEUROLOGIC: No headache, vertigo, loss of consciousness, or change in strength/ sensation. ENDOCRINE: No increased thirst. No abnormal weight change HEMATOLOGIC/LYMPHATIC: No anemia, easy bleeding, or history of blood clots. ALLERGIC/IMMUNOLOGIC: No hives or skin allergy. PE GENERAL: Awake, alert, and fully oriented, in no acute distress HEAD: No signs of trauma, normocephalic, atraumatic EYES: EOMI, sclera anicteric, conjunctiva clear ENT: oropharynx clear without exudates. Moist mucosa NECK: Normal ROM, supple LUNGS: No distress, speaks full sentences, clear to auscultation bilaterally HEART: Regular rate and rhythm, normal S1 and S2, no murmurs, rubs or gallops, peripheral pulses normal and equal bilaterally. ABDOMEN: Soft, nontender No guarding, no rebound. No masses EXTREMITIES : Normal inspection, Normal range of motion, baseline edema. No clubbing or cyanosis. NEUROLOGICAL: Cranial nerves II through XII grossly intact. Normal speech, no focal sensorimotor deficits SKIN: Warm, Dry, normal turgor, no rashes or lesions noted MDM DDX including but not limited to: chf exacerb acs pna ED Course: 08/08/19 17:06 went to reassess patient, not found several attempts to locate Patient has carolyn Tovar, PGY2 Emergency Medicine Past History - Past Medical History Allergies/Adverse Reactions: Allergies Allergy/AdvReac Type Severity Reaction Status Date / Time No Known Allergies Allergy Verified 08/08/19 12:48 Home Medications: Ambulatory Orders Carvedilol [Coreg] 25 mg PO BID 08/03/17 Cyclobenzaprine HCl 10 mg PO DAILY 08/04/17 Oxycodone HCl/Acetaminophen [Oxycodone-Acetaminophen 10-325] 1 each PO Q6H PRN MDD 4/day 08/04/17 Quetiapine Fumarate [Seroquel -] 200 mg PO HS 08/04/17 Venlafaxine HCl ER [Effexor Xr -] 75 mg PO TID 01/12/18 Zolpidem Tartrate [Ambien] 10 mg PO HS 01/12/18 Gabapentin [Neurontin -] 400 mg PO Q8H 01/03/19 Ranitidine [Zantac -] 150 mg PO BID 01/03/19 Apixaban [Eliquis -] 5 mg PO BID tablet 01/07/19 Docusate Sodium [Colace -] 100 mg PO TID capsule 01/07/19 Polyethylene Glycol 3350 [Miralax 119 gm Btl -] 17 gm PO DAILY bottle 01/07/19 Sennosides [Senna -] 2 tab PO HS tablet 01/07/19 Lidocaine 5% Patch [Lidoderm -] 1 patch TP DAILY #30 patch 04/28/19 oxyCODONE SR [Oxycontin] 15 mg PO BID 06/17/19 Ferrous Sulfate [Feosol] 325 mg PO DAILY #30 tab 06/18/19 Lisinopril [Prinivil] 5 mg PO DAILY #30 tablet 06/18/19 Spironolactone [Aldactone -] 25 mg PO DAILY #30 tablet 06/18/19 Anemia: No Asthma: No Cancer: No Cardiac Disorders: Yes (last EF 15%, A fib) CVA: No COPD: No CHF: Yes Dementia: No Diabetes: Yes (not on meds) GI Disorders: Yes (REFLUX) Disorders: No HTN: Yes Hypercholesterolemia: No Liver Disease: No Seizures: No Thyroid Disease: No - Immunization History Immunization Up to Date: Yes - Psycho Social/Smoking Cessation Hx Smoking History: Never smoked Have you smoked in the past 12 months: No Cigars Per Day: 0 Hx Alcohol Use: No Drug/Substance Use Hx: No Substance Use Type: None Hx Substance Use Treatment: No *Physical Exam - Vital Signs Last Vital Signs Temp Pulse Resp BP Pulse Ox 97.9 F 88 22 H 158/80 99 08/08/19 12:50 08/08/19 12:50 08/08/19 12:50 08/08/19 12:50 08/08/19 12:50 ED Treatment Course - LABORATORY CBC & Chemistry Diagram: 08/08/19 14:20 08/08/19 14:20 Discharge - Discharge Information Problems reviewed: Yes Clinical Impression/Diagnosis: Shortness of breath Condition: Stable Disposition: ELOPED - Follow up/Referral Referrals: Jessy Elias [Primary Care Provider] - - Patient Discharge Instructions - Post Discharge Activity
[2019-08-08] MEDS ORDERED: ACETAMINOPHEN 325 MG TABLET (FP) PO ONE (13:36)
[2019-08-08 13:41] VITALS: BMI 42.9
[2019-08-08] MEDS ORDERED: ACETAMINOPHEN 325 MG TABLET (FP) ONE (14:04)
[2019-08-08 14:50] LABS: EOS % 3.3 % (0-4.5); HEMATOCRIT 27.5 % (32.4-45.2); HEMOGLOBIN 8.6 GM/dL (10.7-15.3); LYMPH % 18.9 % (8-40); MCH 24.9 pg (25.7-33.7); MCHC 31.1 g/dl (32.0-36.0); MEAN CELL VOLUME 79.8 fl (80-96); MEAN PLT VOLUME 7.4 fl (7.5-11.1); MONO % 8.3 % (3.8-10.2); NEUT % 68.5 % (42.8-82.8); PLATELET COUNT 382 K/MM3 (134-434); RBC 3.45 M/mm3 (3.60-5.2); RDW 19.1 % (11.6-15.6)
[2019-08-08 15:08] LABS: INR 1.13 (0.83-1.09); PROTHROMBIN TIME (PATIENT) 13.3 SEC (9.7-13.0)
[2019-08-08 15:15] LABS: ALBUMIN 3.2 g/dl (3.4-5.0); BILIRUBIN,TOTAL 0.2 mg/dL (0.2-1); BLOOD UREA NITROGEN 19.5 mg/dL (7-18); CALCIUM 8.6 mg/dL (8.5-10.1); CREATININE 1.2 mg/dL (0.55-1.3); N-TERMINAL BNP 2082.6 pg/ml (5-125); POTASSIUM 4.3 mmol/L (3.5-5.1)
--- NOTE | 2019-08-08 17:19 | PDOC ---
Documentation entered by Teressa Cobb SCRIBE, acting as scribe for Camila Mendez MD. Camila Mendez MD: This documentation has been prepared by the Jordyn green Brenda, SCRIBE, under my direction and personally reviewed by me in its entirety. I confirm that the documentation accurately reflects all work, treatment, procedures, and medical decision making performed by me. Attending Attestation - Resident Resident Name: Ranjana Tovar - ED Attending Attestation I have performed the following: I have examined & evaluated the patient, The case was reviewed & discussed with the resident, I agree w/resident's findings & plan, Exceptions are as noted - HPI HPI: 08/08/19 14:50 The patient is a 58 year old female with a past medical history of morbid obesity. HTN, HLD, CHF (EF <15% and noncompliant with lasix), PE (05/24/19 - on eliquis), chronic lower extremity pain, GERD and cholelithiasis who presents to the ED with 1 day of a productuve cough with clear phlegm accompanied by some shortness of breath. Patient reports that she is now compliant with her lasix, and reports she was previously noncompliant due to the urination side effect. The patient denies chest pain, headache or dizziness. Denies fever, chills, nausea or vomitting. Denies any urinary symptoms. Allergies: NKA - Physicial Exam PE: 08/08/19 17:09 left before my full examination - Medical Decision Making 08/08/19 17:09 58 yo F h/o prior pe, chf, EF 15, here with c/o cough sob. no leg welling. no cp. pt is on eliquis. also c/o left knee pain that she has had for arthritis, was scheduled for prior knee replacement but felt to high risk. takes percocet outpt for pain. today here sob, also c/o leg pain. no f/c no n/v no cp. no leg swelling. unable to examine pt as she eloped waiting for CT to r/o worsening pe. cxr was negative labs negative except elevated bnp 2000 up from 1700. ekg NSR [address] elevation or depression pt was awaiting cta, had received percocet for knee pain. refused IV, and eloped prior to my full examination. Heart Score/ECG Review #1 General ECG Interpretation: Sinus Rhythm, Normal Rate, Normal Intervals, No acute ischemic changes Compared to previous ECG there are: Other (LVH, rate 89 bpm, TWI III AVF)
[2019-08-08 17:28] VITALS: BP 139/90; PULSE 89; TEMP 98.7
--- NOTE | 2019-08-09 13:22 | EKG ---
Test Reason : Blood Pressure : / mmHG Vent. Rate : 089 BPM Atrial Rate : 089 BPM P-R Int : 180 ms QRS Dur : 092 ms QT Int : 398 ms P-R-T Axes : 052 -02 -24 degrees QTc Int : 484 ms NORMAL SINUS RHYTHM VOLTAGE CRITERIA FOR LEFT VENTRICULAR HYPERTROPHY PROLONGED QT ABNORMAL ECG WHEN COMPARED WITH ECG OF 17-JUN-2019 04:49, NO SIGNIFICANT CHANGE WAS FOUND Confirmed by GASPER JETT, HOLLI ([id number]) on 08/09/2019 1:21:33 PM Referred By: Confirmed By:HOLLI JACKMAN MD
== END 2019-08-08 17:16 | disposition left against medical advice (07) ==
LOC: JER 12:39
DX: R05 Cough (principal); R06.02 Shortness of breath; I11.0 Hypertensive heart disease with heart failure; I50.9 Heart failure, unspecified; I48.91 Unspecified atrial fibrillation; Z79.01 Long term (current) use of anticoagulants; Z86.711 Personal history of pulmonary embolism; E66.01 Morbid (severe) obesity due to excess calories; E78.5 Hyperlipidemia, unspecified; Z68.41 Body mass index [BMI] 40.0-44.9, adult; K21.9 Gastro-esophageal reflux disease without esophagitis; K80.20 Calculus of gallbladder without cholecystitis without obstruction; Z91.14 Patient's other noncompliance with medication regimen
CPT/HCPCS: 36415; 71045-TC-FY; 80053; 83880; 84484; 85025; 85610; 85730; 93005; 93010; 99284-25

== ENCOUNTER 2019-08-12 22:57 | Inpatient (IN) | payer OTHER ==
--- NOTE | 2019-08-13 00:11 | PDOC ---
History of Present Illness <Avril Braun - Last Filed: 08/13/19 03:46> - History of Present Illness Initial Comments: The pt is a 58F w/ a history of PE (eliquis), CHF, HTN, DM, neuropathy who presents for evaluation of shortness of breath for 3-4 days. Denies CP, dizziness, vision change. Pt was reportedly non-compliant with meds but tonight states that she has been taking them. The pt reports persistent difficulty breathing, TIRADO, and reduced activity tolerance. She denies fevers/chills, chest pain, BIRCH, vision changes, dysuria, hematuria, diarrhea, or acute change in sensation. 08/13/19 00:16 <Neil Kwong - Last Filed: 08/13/19 06:20> - General Chief Complaint: Pain Stated Complaint: SHORTNESS OF BREATH Past History <Avril Braun - Last Filed: 08/13/19 03:46> - Past Medical History Anemia: No Asthma: No Cancer: No Cardiac Disorders: Yes (last EF 15%) CVA: No COPD: No CHF: Yes Dementia: No Diabetes: Yes GI Disorders: Yes (REFLUX) Disorders: No HTN: Yes Hypercholesterolemia: No Liver Disease: No Seizures: No Thyroid Disease: No - Immunization History Immunization Up to Date: Yes - Psycho Social/Smoking Cessation Hx Smoking History: Never smoked Have you smoked in the past 12 months: No Cigars Per Day: 0 Information on smoking cessation initiated: No Hx Alcohol Use: No Drug/Substance Use Hx: No Substance Use Type: None Hx Substance Use Treatment: No <Neil Kwong - Last Filed: 08/13/19 06:20> - Past Medical History Allergies/Adverse Reactions: Allergies Allergy/AdvReac Type Severity Reaction Status Date / Time No Known Allergies Allergy Verified 08/08/19 12:48 Home Medications: Ambulatory Orders Carvedilol [Coreg] 25 mg PO BID 08/03/17 Cyclobenzaprine HCl 10 mg PO DAILY 08/04/17 Oxycodone HCl/Acetaminophen [Oxycodone-Acetaminophen 10-325] 1 each PO Q6H PRN MDD 4/day 08/04/17 Quetiapine Fumarate [Seroquel -] 200 mg PO HS 08/04/17 Venlafaxine HCl ER [Effexor Xr -] 75 mg PO TID 01/12/18 Zolpidem Tartrate [Ambien] 10 mg PO HS 01/12/18 Gabapentin [Neurontin -] 400 mg PO Q8H 01/03/19 Ranitidine [Zantac -] 150 mg PO BID 01/03/19 Apixaban [Eliquis -] 5 mg PO BID tablet 01/07/19 Docusate Sodium [Colace -] 100 mg PO TID capsule 01/07/19 Polyethylene Glycol 3350 [Miralax 119 gm Btl -] 17 gm PO DAILY bottle 01/07/19 Sennosides [Senna -] 2 tab PO HS tablet 01/07/19 Lidocaine 5% Patch [Lidoderm -] 1 patch TP DAILY #30 patch 04/28/19 oxyCODONE SR [Oxycontin] 15 mg PO BID 06/17/19 Ferrous Sulfate [Feosol] 325 mg PO DAILY #30 tab 06/18/19 Lisinopril [Prinivil] 5 mg PO DAILY #30 tablet 06/18/19 Spironolactone [Aldactone -] 25 mg PO DAILY #30 tablet 06/18/19 Review of Systems - Review of Systems Able to Perform ROS?: Yes Comments:: GENERAL/CONSTITUTIONAL: No fever or chills HEAD, EYES, EARS, NOSE AND THROAT: No change in vision. No change in hearing. No sore throat CARDIOVASCULAR: No chest pain RESPIRATORY: Denies cough, hemoptysis GASTROINTESTINAL: No nausea, vomiting, diarrhea or constipation GENITOURINARY: No dysuria, frequency, or change in urination MUSCULOSKELETAL: +chronic back/LLE pain SKIN: No rash NEUROLOGIC: No headache, vertigo, loss of consciousness, or change in strength/ sensation ENDOCRINE: No increased thirst. No abnormal weight change HEMATOLOGIC/LYMPHATIC: No anemia, easy bleeding, or history of blood clots ALLERGIC/IMMUNOLOGIC: No hives or skin allergy 08/13/19 05:57 Is the patient limited Swiss proficient: No <Neil Kwong - Last Filed: 08/13/19 06:20> *Physical Exam - Vital Signs Last Vital Signs Temp Pulse Resp BP Pulse Ox 98.7 F 98 H 18 186/117 H 98 08/12/19 23:06 08/12/19 23:06 08/12/19 23:06 08/12/19 23:06 08/12/19 23:06 <Avril Braun - Last Filed: 08/13/19 03:46> - Vital Signs Last Vital Signs Temp Pulse Resp BP Pulse Ox 98.7 F 98 H 18 186/117 H 98 08/12/19 23:06 08/12/19 23:06 08/12/19 23:06 08/12/19 23:06 08/12/19 23:06 - Physical Exam GENERAL: Awake, alert, and oriented to person/place/time, in no acute distress HEAD: No signs of trauma, normocephalic, atraumatic EYES: PERRLA, EOMI, sclera anicteric, conjunctiva clear ENT: Hearing grossly normal, nares patent, oropharynx clear without exudates. Moist mucosa LUNGS: No distress, speaks in full sentences, clear to auscultation bilaterally HEART: Regular rate and rhythm, normal S1 and S2, no murmurs appreciated, peripheral pulses normal and equal bilaterally ABDOMEN: Soft, nontender, normoactive bowel sounds. No guarding, no rebound EXTREMITIES: Moves all extremities independently; BLE edema NEUROLOGICAL: Cranial nerves II through XII grossly intact. Normal speech, ambulating in ED with walker with stable gait, no focal sensorimotor deficits SKIN: Warm, Dry 08/13/19 05:58 <Neil Kwong - Last Filed: 08/13/19 06:20> ED Treatment Course - LABORATORY CBC & Chemistry Diagram: 08/13/19 01:35 08/13/19 01:35 - ADDITIONAL ORDERS Additional order review: Laboratory Results 08/13/19 08/13/19 08/13/19 01:35 01:35 01:35 PTT (Actin FS) 37.9 H Sodium 138 Potassium 4.0 Chloride 107 Carbon Dioxide 24 Anion Gap 8 BUN 17.4 Creatinine 1.3 Est GFR (CKD-EPI)AfAm 52.00 Est GFR (CKD-EPI)NonAf 44.87 Random Glucose 122 H Calcium 9.3 Total Bilirubin 0.4 AST 21 ALT 23 Alkaline Phosphatase 102 Troponin I 0.03 B-Natriuretic Peptide 4152.1 H Total Protein 8.3 H Albumin 3.8 08/13/19 01:35 RBC 3.94 MCV 79.4 L MCHC 31.7 L RDW 18.9 H MPV 7.1 L Neutrophils % 61.2 Lymphocytes % 24.2 D Monocytes % 10.9 H Eosinophils % 2.5 Basophils % 1.2 - Medications Given in the ED: ED Medications Discontinued Medications Generic Name Dose Route Start Last Admin Trade Name Fatoumata PRN Reason Stop Dose Admin Acetaminophen 1,000 mg 08/13/19 01:54 08/13/19 02:00 Ofirmev Injection - IVPB 08/13/19 01:55 1,000 mg ONCE ONE Administration Ketorolac Tromethamine 15 mg 08/13/19 01:54 08/13/19 02:00 Toradol Injection - IVPUSH 08/13/19 01:55 15 mg ONCE ONE Administration Lidocaine 1 patch 08/13/19 01:54 08/13/19 02:00 Lidoderm Patch - TP 08/13/19 01:55 1 patch ONCE ONE Administration <Avril Braun - Last Filed: 08/13/19 03:46> - LABORATORY CBC & Chemistry Diagram: 08/13/19 01:35 08/13/19 01:35 - RADIOLOGY Radiograph Interpretation: THIS IS A PRELIMINARY REPORT FROM [facility] DATE OF SERVICE: 2019-08-13 02:51:54 EXAM: CT ANGIOGRAM CHEST WITH CONTRAST AND 3D ANGIOGRAPHIC RECONSTRUCTIONS IMPRESSION: No large central pulmonary embolism. Mild cardiomegaly with calcified coronary artery arteriosclerosis. Small pericardial effusion. Moderate hiatal hernia with mild nonspecific lower esophageal wall thickening most likely reflux esophagitis. Cholelithiasis in the gallbladder neck with moderate gallbladder distention most likely associated with gallbladder dysmotility may be associated with chronic cholecystitis. If clinically indicated follow-up Outpatient Nuclear Medicine Hepatobiliary Scan With a Slow 10 Minute Cholecystokinin Injection Gallbladder Ejection Fraction Calculation may be needed. 08/13/19 06:18 <Neil Kwong - Last Filed: 08/13/19 06:20> Medical Decision Making - Medical Decision Making The pt is a 58F w/ a history of PE (eliquis), CHF, HTN, DM, neuropathy who presents for evaluation of shortness of breath for 3-4 days. ED Course Labs sent ECG CXR Tylenol, Toradol, and Lidoderm patch ECG w/ NSR; HR 91; QTc 472; no axis deviation; no EDGARDO No leukocytosis Anemia noted, no indication to transfuse at this time Lytes unremarkable No TEDDY LFTs unremarkable Trop I neg BNP elevated, double from visit several days ago CT w/o evidence of PE Cholelithiasis noted on this scan and previous scan Plan for admission for CHF exacerbation Lasix 40mg IV once given Pt signed out to [facility] Admitting 08/13/19 05:59 <Neil Kwong - Last Filed: 08/13/19 06:20> Discharge - Discharge Information Problems reviewed: Yes - Admission Yes <Avril Braun - Last Filed: 08/13/19 03:46> - Discharge Information Problems reviewed: Yes - Admission Yes <Neil Kwong - Last Filed: 08/13/19 06:20> - Discharge Information Clinical Impression/Diagnosis: CHF (congestive heart failure) Qualifiers: Heart failure type: unspecified Heart failure chronicity: unspecified Qualified Code(s): I50.9 - Heart failure, unspecified DM2 (diabetes mellitus, type 2) Qualifiers: Diabetes mellitus fci insulin use: unspecified terminologist insulin use status Diabetes mellitus complication status: with other specified complication Qualified Code(s): E11.69 - Type 2 diabetes mellitus with other specified complication Condition: Guarded Disposition: HOME
[2019-08-13 01:45] LABS: BASO % 1.2 % (0-2.0); EOS % 2.5 % (0-4.5); HEMATOCRIT 31.3 % (32.4-45.2); HEMOGLOBIN 9.9 GM/dL (10.7-15.3); LYMPH % 24.2 % (8-40); MCH 25.2 pg (25.7-33.7); MCHC 31.7 g/dl (32.0-36.0); MEAN CELL VOLUME 79.4 fl (80-96); MEAN PLT VOLUME 7.1 fl (7.5-11.1); MONO % 10.9 % (3.8-10.2); NEUT % 61.2 % (42.8-82.8); PLATELET COUNT 462 K/MM3 (134-434); RBC 3.94 M/mm3 (3.60-5.2); RDW 18.9 % (11.6-15.6); WHITE BLOOD COUNT 9.9 K/mm3 (4.0-10.0)
[2019-08-13] MEDS ORDERED: LIDOCAINE 5% TOPICAL PATCH TP ONE (01:54)
[2019-08-13] MEDS ORDERED: KETOROLAC TROMETHAMINE 15 MG/ML VIAL IVPUSH ONE (01:54)
[2019-08-13] MEDS ORDERED: ACETAMINOPHEN 1000 MG/100 ML VIAL (NON FORMULARY) IVPB ONE (01:54)
[2019-08-13 02:17] LABS: ALBUMIN 3.8 g/dl (3.4-5.0); BILIRUBIN,TOTAL 0.4 mg/dL (0.2-1); BLOOD UREA NITROGEN 17.4 mg/dL (7-18); CALCIUM 9.3 mg/dL (8.5-10.1); CREATININE 1.3 mg/dL (0.55-1.3); TOT PROT 8.3 g/dl (6.4-8.2)
[2019-08-13 03:40] LABS: N-TERMINAL BNP 4152.1 pg/ml (5-125)
--- NOTE | 2019-08-13 03:47 | PDOC ---
Attending Attestation - Resident Resident Name: AkosuaNeil cerna - ED Attending Attestation I have performed the following: I have examined & evaluated the patient, The case was reviewed & discussed with the resident, I agree w/resident's findings & plan - HPI HPI: 08/13/19 03:46 see resident hpi - Physicial Exam PE: 08/13/19 03:46 agree with resident exam - Medical Decision Making 08/13/19 03:46 58-year-old female with history of cardiomyopathy as well as pulmonary embolism and noncompliance with recent ED visit and elopement now with increasing shortness of breath and chronic pain Labs suggest worsening of patient's CHF CT shows no obvious new pulmonary embolism We will admit to medical service for further management Of note patient has consistently asked for narcotic pain management, she was advised that due to history of noncompliance and enrollment in pain management on an outpatient basis this will be discussed with the admitting team
[2019-08-13] MEDS ORDERED: FUROSEMIDE 40 MG/4 ML INJECTABLE VIAL IVPUSH ONE (03:53)
--- NOTE | 2019-08-13 04:39 | PN ---
Teaching Attending Note Name of Resident: Juliette Saeed ATTENDING PHYSICIAN STATEMENT I saw and evaluated the patient. I reviewed the resident's note and discussed the case with the resident. I agree with the resident's findings and plan as documented. SUBJECTIVE: Patient is a 58 year old woman with PMH of HFrEF (LVEF 15%), Morbid obesity, Cholelithiasis, Chronic lower extremity pain, GERD, Cardiomyopathy, HTN, Pulmonary embolism (on Eliquis) and Nonadherence presents with increasing shortness of breath and chronic pain. Had a recent ER visit 4 days ago for SOB, but eloped before a complete workup. ER staff noted stanley patient has consistently asked for narcotic pain management, but has a history of nonadherence and refusal to enroll in pain management on an outpatient basis. No recent travels or sick contacts. Denies alcohol, tobacco or illicit drug use. OBJECTIVE: Alert Vital Signs Period Temp Pulse Resp BP Sys/Vilchis Pulse Ox Last 24 Hr 98.7 F 98 18 186/117 98 HEENT: No Jaundice, eye redness or discharge, PERRLA, EOMI. Normocephalic, atraumatic. External ears are normal and hearing is grossly intact. No nasal discharge. Neck: Supple, nontender. No palpable adenopathy or thyromegaly. No JVD Chest: Good effort. Clear to auscultation and percussion. Heart: Regular. No S3, rub or murmur Abdomen: Not distended, soft, nontender and no HSM. No rebound or guarding. Normal bowel sounds. Ext: Peripheral pulses intact. Leg edema. Skin: Warm and dry. No petechiae, rash or ecchymosis. Neuro: Alert. Oriented x3. CN 2-12 grossly intact. Sensation grossly intact in all four extremities and DTR are symmetric. Psych: Appropriate mood and affect. Good insight. Current Medications Generic Name Dose Route Start Last Admin Trade Name Freq PRN Reason Stop Dose Admin Miscellaneous 1 each 08/13/19 22:00 Lidoderm Patch Removal [facility] [id number] [facility] Home Medications Medication Instructions Recorded Carvedilol [Coreg] 25 mg PO BID 08/03/17 Cyclobenzaprine HCl 10 mg PO DAILY 08/04/17 Oxycodone HCl/Acetaminophen 1 each PO Q6H PRN MDD 4/day 08/04/17 [Oxycodone-Acetaminophen 10-325] Quetiapine Fumarate [Seroquel -] 200 mg PO HS 08/04/17 Venlafaxine HCl ER [Effexor Xr -] 75 mg PO TID 01/12/18 Zolpidem Tartrate [Ambien] 10 mg PO HS 01/12/18 Gabapentin [Neurontin -] 400 mg PO Q8H 01/03/19 Ranitidine [Zantac -] 150 mg PO BID 01/03/19 Apixaban [Eliquis -] 5 mg PO BID tablet 01/07/19 Docusate Sodium [Colace -] 100 mg PO TID capsule 01/07/19 Polyethylene Glycol 3350 [Miralax 17 gm PO DAILY bottle 01/07/19 119 gm Btl -] Sennosides [Senna -] 2 tab PO HS tablet 01/07/19 Lidocaine 5% Patch [Lidoderm -] 1 patch TP DAILY #30 patch 04/28/19 oxyCODONE SR [Oxycontin] 15 mg PO BID 06/17/19 Ferrous Sulfate [Feosol] 325 mg PO DAILY #30 tab 06/18/19 Lisinopril [Prinivil] 5 mg PO DAILY #30 tablet 06/18/19 Spironolactone [Aldactone -] 25 mg PO DAILY #30 tablet 06/18/19 Abnormal Lab Results 08/13/19 08/13/19 08/13/19 01:35 01:35 01:35 Hgb 9.9 L Hct 31.3 L MCV 79.4 L MCH 25.2 L MCHC 31.7 L RDW 18.9 H Plt Count 462 H D MPV 7.1 L Monocytes % 10.9 H PTT (Actin FS) 37.9 H Random Glucose 122 H B-Natriuretic Peptide 4152.1 H Total Protein 8.3 H ASSESSMENT AND PLAN: 1. CHF Exacerbation - Not taking lasix as prescribed because of frequent nighttime urination and also not adherent with dietary salt restriction. Chest CTA showed no obvious new pulmonary embolism. No acute DVT on leg doppler. CXR and UA pending. EKG shows Afib with no significant ST-T wave changes. Will treat with IV lasix, restrict dietary salt intake and get daily standing weight. Will consult cardiology - consider referral to a center with focused heart failure expertise to explore all her options for CHF care. Consult pulmonary to assess for outpatient CPAP for AMANDA. Will continue comprehensive care for all of patients comorbid conditions. 2. Anemia with low MCV - Etiology unclear. Will do basic anemia work up including serial stool guaiacs, reticulocyte count and iron studies. Consult GI for possible colonoscopy. Would benefit from Procrit therapy once iron replete. 3. Morbid obesity Counseled on the risks associated with morbid obesity. Will provide patient all the necessary assistance, counseling and positive reinforcement to facilitate weight loss. Consult scarrer. 4. Uncontrolled hypertension - Restart suitable outpatient antihypertensive drugs when clinically appropriate. Revise regimen to ensure [id number] excellent BP control and cosmetic counselor patient on the injurious effects of uncontrolled hypertension. Nonpharmacologic measures to control hypertension like weight loss, salt restriction and exercise discussed. Importance of adherence to treatment regimen and attainment of normotension emphasized. 5. DVT prophylaxis - On Eliquis for Afib. 6. Advance directives - Full code
--- NOTE | 2019-08-13 05:43 | HP ---
CHIEF COMPLAINT: Shortness of breath PCP: Dr. Cielo Elias Integration Engineer: Dr. Wang HISTORY OF PRESENT ILLNESS: Ms. Greenwood is a 58 year old female with PMH of CHF, PE (on eliquis), HTN, HLD, chronic LLE pain, GERD who presents with SOB for 4 days. Pt has a hx of non- adherence with medications. She was recently admitted to [facility] in June for CHF exacerbation after not taking her lasix as prescribed. Pt states that she stopped taking her nighttime dose of lasix one week ago because it was making her urinate too much throughout the evening. Pt has TIRADO, can only walk 2 blocks before getting SOB. She sleeps with 3 pillows at night. She also states that she drinks multiple bottles of water each day and does add salt to her food. Pt has no chest pain, dizziness, vision changes, nausea, vomiting. No increased leg swelling, calf tenderness. She was supposed to see her client program manager on Monday and was told he was going to start her on Entresto. Of note, pt came to [facility] ED on Monday for these symptoms but eloped before workup was complete. She returned last night due to worsening symptoms. Recent Travel: denies PAST MEDICAL HISTORY: As per HPI PAST SURGICAL HISTORY: Denies Social History: Smoking: denies Alcohol: denies Drugs: denies Allergies No Known Allergies Allergy (Verified 08/08/19 12:48) HOME MEDICATIONS: Home Medications Medication Instructions Recorded Carvedilol [Coreg] 25 mg PO BID 08/03/17 Cyclobenzaprine HCl 10 mg PO DAILY 08/04/17 Oxycodone HCl/Acetaminophen 1 each PO Q6H PRN MDD 4/day 08/04/17 [Oxycodone-Acetaminophen 10-325] Quetiapine Fumarate [Seroquel -] 200 mg PO HS 08/04/17 Venlafaxine HCl ER [Effexor Xr -] 75 mg PO TID 01/12/18 Zolpidem Tartrate [Ambien] 10 mg PO HS 01/12/18 Gabapentin [Neurontin -] 400 mg PO Q8H 01/03/19 Ranitidine [Zantac -] 150 mg PO BID 01/03/19 Apixaban [Eliquis -] 5 mg PO BID tablet 01/07/19 Docusate Sodium [Colace -] 100 mg PO TID capsule 01/07/19 Polyethylene Glycol 3350 [Miralax 17 gm PO DAILY bottle 01/07/19 119 gm Btl -] Sennosides [Senna -] 2 tab PO HS tablet 01/07/19 Lidocaine 5% Patch [Lidoderm -] 1 patch TP DAILY #30 patch 04/28/19 oxyCODONE SR [Oxycontin] 15 mg PO BID 06/17/19 Ferrous Sulfate [Feosol] 325 mg PO DAILY #30 tab 06/18/19 Lisinopril [Prinivil] 5 mg PO DAILY #30 tablet 06/18/19 Spironolactone [Aldactone -] 25 mg PO DAILY #30 tablet 06/18/19 REVIEW OF SYSTEMS CONSTITUTIONAL: Absent: fever, chills, diaphoresis, generalized weakness, malaise, loss of appetite, weight change HEENT: Absent: rhinorrhea, nasal congestion, throat pain, throat swelling, difficulty swallowing, mouth swelling, ear pain, eye pain, visual changes CARDIOVASCULAR: Absent: chest pain, syncope, palpitations, irregular heart rate, lightheadedness , peripheral edema RESPIRATORY: shortness of breath, dyspnea with exertion, orthopnea Absent: cough, wheezing, stridor, hemoptysis GASTROINTESTINAL: Absent: abdominal pain, abdominal distension, nausea, vomiting, diarrhea, constipation, melena, hematochezia GENITOURINARY: Absent: dysuria, frequency, urgency, hesitancy, hematuria, flank pain, genital pain MUSCULOSKELETAL: Absent: myalgia, arthralgia, joint swelling, back pain, neck pain SKIN: Absent: rash, itching, pallor HEMATOLOGIC/IMMUNOLOGIC: Absent: easy bleeding, easy bruising, lymphadenopathy, frequent infections ENDOCRINE: Absent: unexplained weight gain, unexplained weight loss, heat intolerance, cold intolerance NEUROLOGIC: Absent: headache, focal weakness or paresthesias, dizziness, unsteady gait, seizure, mental status changes, bladder or bowel incontinence PSYCHIATRIC: Absent: anxiety, depression, suicidal or homicidal ideation, hallucinations. PHYSICAL EXAMINATION Vital Signs - 24 hr 08/12/19 23:06 Temperature 98.7 F Pulse Rate 98 H Respiratory 18 Rate Blood Pressure 186/117 H O2 Sat by Pulse 98 Oximetry (%) GENERAL: Awake, alert, and fully oriented, in no acute distress. HEAD: Normal with no signs of trauma. EYES: Pupils equal, round and reactive to light, extraocular movements intact, sclera anicteric, conjunctiva clear. No lid lag. EARS, NOSE, THROAT: Ears normal, nares patent, oropharynx clear without exudates. Moist mucous membranes. NECK: Normal range of motion, supple without lymphadenopathy, or masses. (+) JVD , (+) Hepatojugular reflux LUNGS: Bibasilar crackles. No wheezes. No accessory muscle use. HEART: Regular rate and rhythm, normal S1 and S2 without murmur, rub or gallop. ABDOMEN: Soft, nontender, not distended, normoactive bowel sounds, no guarding, no rebound, no masses. No hepatomegaly or splenomegaly. MUSCULOSKELETAL: Normal range of motion at all joints. No bony deformities or tenderness. No CVA tenderness. UPPER EXTREMITIES: 2+ pulses, warm, well-perfused. No cyanosis. No clubbing. No peripheral edema. LOWER EXTREMITIES: 2+ pulses, warm, well-perfused. No calf tenderness. 2+ peripheral edema. NEUROLOGICAL: Cranial nerves II-XII intact. Normal speech. Normal gait. PSYCHIATRIC: Cooperative. Good eye contact. Appropriate mood and affect. SKIN: Warm, dry, normal turgor, no rashes or lesions noted, normal capillary refill. Laboratory Results - last 24 hr CBC, BMP 08/13/19 01:35 08/13/19 01:35 ASSESSMENT/PLAN: Ms. Greenwood is a 58 year old female with PMH of CHF, PE (on eliquis), HTN, HLD, chronic LLE pain, GERD who presents with progressive SOB and TIRADO. #Acute CHF exacerbation 2/2 medication non-adherence BNP: 4152.1 Echo (06/25): EF of 25% CTA: no evidence of PE Duplex: no evidence of DVT CXR and UA pending Treat with IV lasix. Received 1x 40mg in ED, will titrate up as needed based on urine output Strict I&O's, daily weights, restricted fluid intake Tele monitoring Cardiology consultation (Dr. Kennedy) to consider referral to heart transplant center and focused HF expertise Pulmonary consultation (Dr. Sol) to assess for outpatient CPAP for AMANDA #Microcytic anemia Etiology unclear F/u iron studies and FOBT Consult GI (Dr. Diaz) for possible colonoscopy Cont ferrous sulfate #HTN Will cont pt's home meds: Lisinopril 5mg, Coreg 25mg BID, Aldactone 25mg daily Discuss importance of weight loss, salt restriction, and exercise #PE (May 2018) Cont home eliquis 5mg BID #Chronic LLE pain Pt has pain mangement doctor, will contact to confirm regimen Cont Oxy 10mg daily,. Flexeril 10mg, Neurontin 400mg Q8H, lidoderm patch #FEN No standing fluids Salt-controlled diet, consult marketing area manager #DVT ppx Pt on eliquis #Dispo Monitor on tele Visit type - Emergency Visit Emergency Visit: Yes ED Registration Date: 08/13/19 Care time: The patient presented to the Emergency Department on the above date and was hospitalized for further evaluation of their emergent condition. - New Patient This patient is new to me today: Yes Date on this admission: 08/13/19 - Critical Care Critical Care patient: No ATTENDING PHYSICIAN STATEMENT I saw and evaluated the patient. I reviewed the resident's note and discussed the case with the resident. I agree with the resident's findings and plan as documented. SUBJECTIVE: OBJECTIVE: ASSESSMENT AND PLAN:
[2019-08-13] MEDS ORDERED: GABAPENTIN 400 MG CAPSULE (FP) PO SCH (05:45)
[2019-08-13] MEDS: DOCUSATE SODIUM 100 MG CAPSULE (FP) PO SCH ×3 (06:05→21:25)
[2019-08-13] MEDS: VENLAFAXINE HCL 75 MG E.R. CAPSULES (FP) PO SCH ×2 (06:23→16:10)
[2019-08-13 08:17] LABS: EPI CELLS 1.1 /HPF (0-5/HPF); HYALINE CASTS 0 /lpf (0-8); PH,URINE 5.5 (5.0-8.0); URINE APPEARANCE CLEAR; URINE BACTERIA 75.5 /hpf (NEGATIVE); URINE BILIRUBIN NEGATIVE (NEGATIVE); URINE COLOR YELLOW; URINE GLUCOSE (UA) NEGATIVE (NEGATIVE); URINE KETONE NEGATIVE (NEGATIVE); URINE LEUK ESTERASE NEGATIVE (NEGATIVE); URINE NITRITE NEGATIVE (NEGATIVE); URINE PROTEIN 1+ (NEGATIVE); URINE RBC 0 /hpf (0-4); URINE UROBILINOGEN 0.2 mg/dL (0.2-1.0); URINE WBC 1 /hpf (0-5)
[2019-08-13] MEDS ORDERED: PATIENT'S OWN MEDICATION (NON-FORMULARY) (Oxycodone Hcl/Acetaminophen [Oxycodone-Acetamino PO PRN ×2 (08:20→09:18)
[2019-08-13] MEDS ORDERED: ACETAMINOPHEN 325 MG TABLET (FP) PO ONE (09:00)
[2019-08-13] MEDS ORDERED: oxyCODONE HCL 5 MG TABLET PO ONE (09:00)
[2019-08-13] MEDS ORDERED: ACETAMINOPHEN 325 MG TABLET (FP) ONE (09:01)
[2019-08-13] MEDS ORDERED: oxyCODONE HCL 5 MG TABLET ONE (09:02)
--- NOTE | 2019-08-13 09:28 | EKG ---
Test Reason : Blood Pressure : / mmHG Vent. Rate : 091 BPM Atrial Rate : 091 BPM P-R Int : 152 ms QRS Dur : 088 ms QT Int : 384 ms P-R-T Axes : 049 003 -02 degrees QTc Int : 472 ms POOR DATA QUALITY, INTERPRETATION MAY BE ADVERSELY AFFECTED NORMAL SINUS RHYTHM VOLTAGE CRITERIA FOR LEFT VENTRICULAR HYPERTROPHY NONSPECIFIC T WAVE ABNORMALITY ABNORMAL ECG NO PREVIOUS ECGS AVAILABLE Confirmed by Rafael Carolina MD ([id number]) on 08/13/2019 9:28:28 AM Referred By: Confirmed By:Rafael Carolina MD
[2019-08-13 09:33] LABS: BASO % 1.1 % (0-2.0); EOS % 0.6 % (0-4.5); HEMOGLOBIN 10.8 GM/dL (10.7-15.3); LYMPH % 15.4 % (8-40); MCH 25.1 pg (25.7-33.7); MCHC 31.8 g/dl (32.0-36.0); MEAN PLT VOLUME 7.3 fl (7.5-11.1); MONO % 8.3 % (3.8-10.2); NEUT % 74.6 % (42.8-82.8); PLATELET COUNT 578 K/MM3 (134-434); RBC 4.31 M/mm3 (3.60-5.2); RDW 19.1 % (11.6-15.6); WHITE BLOOD COUNT 10.9 K/mm3 (4.0-10.0)
[2019-08-13] MEDS ORDERED: ACETAMINOPHEN 325 MG TABLET (FP) PO PRN (09:43)
[2019-08-13] MEDS ORDERED: oxyCODONE HCL 5 MG TABLET PO PRN (09:43)
[2019-08-13] MEDS: LIDOCAINE 5% TOPICAL PATCH TP SCH (09:50)
[2019-08-13] MEDS: POLYETHYLENE GLYCOL 3350 119 GM BTL PO SCH (09:50)
[2019-08-13] MEDS: CARVEDILOL 25 MG TABLET (FP) PO SCH ×2 (09:50→21:26)
[2019-08-13] MEDS: CYCLOBENZAPRINE HCL 10 MG TABLET (FP) PO SCH (09:50)
[2019-08-13] MEDS: SPIRONOLACTONE 25 MG TABLET (FP) PO SCH (09:50)
[2019-08-13] MEDS: FAMOTIDINE 20 MG TABLET PO SCH ×2 (09:50→21:27)
[2019-08-13] MEDS: APIXABAN 5 MG TABLET PO SCH ×2 (09:50→21:26)
[2019-08-13] MEDS ORDERED: HEPARIN NA (PORCINE) 5,000 UNITS/ML 1ML VIAL SQ SCH (10:00)
[2019-08-13] MEDS ORDERED: LISINOPRIL 5 MG TABLET (FP) PO SCH (10:00)
[2019-08-13] MEDS ORDERED: oxyCODONE HCL 10 MG SUSTAINED ACTING TABLET PO SCH ×2 (10:00)
[2019-08-13 10:01] LABS: ALBUMIN 4.3 g/dl (3.4-5.0); BILIRUBIN,TOTAL 0.4 mg/dL (0.2-1); BLOOD UREA NITROGEN 14.8 mg/dL (7-18); CALCIUM 9.7 mg/dL (8.5-10.1); CREATININE 1.4 mg/dL (0.55-1.3); MAGNESIUM 2.3 mg/dL (1.8-2.4); PHOSPHOROUS 3.2 mg/dL (2.5-4.9); POTASSIUM 3.8 mmol/L (3.5-5.1); TOT PROT 9.2 g/dl (6.4-8.2)
[2019-08-13] MEDS: FERROUS SO4 325 MG TABLET (FP) PO SCH (10:05)
[2019-08-13] MEDS: oxyCODONE HCL 10 MG SUSTAINED ACTING TABLET PO SCH ×2 (11:15→21:26)
[2019-08-13] MEDS: PANTOPRAZOLE 40 MG TABLET (FP) PO SCH (11:15)
[2019-08-13] MEDS ORDERED: PANTOPRAZOLE 40 MG TABLET (FP) ONE (11:17)
[2019-08-13] MEDS ORDERED: oxyCODONE HCL 10 MG SUSTAINED ACTING TABLET ONE (11:17)
--- NOTE | 2019-08-13 11:45 | CON.CARD ---
Consult Consult Specialty:: cardiology Reason for Consultation:: atypical chest pain; hx severe systolic CHF - History of Present Illness Chief Complaint: Pt is A&OX3; no chest pain; not dyspneic presently; c/o pain in knees, back. History of Present Illness: 58-year-old black woman with history of dilated cardiomyopathy (severe systolic LV dysfunction),?nonobstructive CAD (pt states she had a coronary angiogram at ? [facility] approximately 6 months ago), morbid obesity, HTN, hyperlipidemia, iron -deficiency anemia, "borderline" DM, s/p pulmonary embolism, noncompliance with recent ED visit/elopement, now with increasing shortness of breath and chronic lower back and LE pain. CT shows no obvious new pulmonary embolism We will admit to medical service for further management Of note patient has consistently asked for narcotic pain management, she was advised that due to history of noncompliance and enrollment in pain management on an outpatient basis this will be discussed with the admitting team Pt's safety deposit supervisor: Dr. Andres Newman - History Source History Provided By: Patient, Medical Record Limitations to Obtaining History: No Limitations - Past Medical History Cardio/Vascular: Yes: CHF, HTN. No: Deep Vein Thrombosis (pt denies) Pulmonary: Yes: Pulmonary Embolus (May 2018 - on Eliquis) Gastrointestinal: Yes: Constipation, GERD Renal/: Yes: Renal Inusuff Reproductive: Yes: Postmenopausal ...LMP: 09/23/13 ...: No Heme/Onc: Yes: Anemia Psych: Yes: Depression, Other (chronic opioid use) Musculoskeletal: Yes: Chronic low back pain, Osteoarthritis (left knee pain requiring replacement) Endocrine: Yes: Diabetes Mellitus ("they told me I have it, but don't need meds anymore") - Past Surgical History Additional Surgical History: coronary angiogram 2019: reportedly no significant lesions - Alcohol/Substance Use Hx Alcohol Use: No History of Substance Use: reports: Prescription (chronic use Percocet, under care of pain management doctors) - Smoking History Smoking history: Never smoked Have you smoked in the past 12 months: No - Social History ADL: Independent (usually) Home Medications - Allergies Allergies/Adverse Reactions: Allergies Allergy/AdvReac Type Severity Reaction Status Date / Time No Known Allergies Allergy Verified 08/08/19 12:48 - Home Medications Home Medications: Ambulatory Orders Carvedilol [Coreg] 25 mg PO BID 08/03/17 Cyclobenzaprine HCl 10 mg PO BID 08/04/17 Oxycodone HCl/Acetaminophen [Oxycodone-Acetaminophen 10-325] 1 each PO Q6H PRN MDD 4/day 08/04/17 Quetiapine Fumarate [Seroquel -] 200 mg PO HS 08/04/17 Venlafaxine HCl ER [Effexor Xr -] 75 mg PO TID 01/12/18 Zolpidem Tartrate [Ambien] 10 mg PO HS 01/12/18 Gabapentin [Neurontin -] 400 mg PO Q8H 01/03/19 Ranitidine [Zantac -] 150 mg PO BID 01/03/19 Apixaban [Eliquis -] 5 mg PO BID tablet 01/07/19 Docusate Sodium [Colace -] 100 mg PO TID capsule 01/07/19 Polyethylene Glycol 3350 [Miralax 119 gm Btl -] 17 gm PO DAILY bottle 01/07/19 Sennosides [Senna -] 2 tab PO HS tablet 01/07/19 Lidocaine 5% Patch [Lidoderm -] 1 patch TP DAILY #30 patch 04/28/19 oxyCODONE SR [Oxycontin] 15 mg PO BID 06/17/19 Ferrous Sulfate [Feosol] 325 mg PO DAILY #30 tab 06/18/19 Lisinopril [Prinivil] 5 mg PO DAILY #30 tablet 06/18/19 Spironolactone [Aldactone -] 25 mg PO DAILY #30 tablet 06/18/19 Furosemide [Lasix -] 40 mg PO BID 08/13/19 Lisinopril [Zestril] 2.5 mg PO DAILY 08/13/19 Family Medical History Family History: Denies Vital Signs: Vital Signs Temperature 97.9 F 08/13/19 06:25 Pulse Rate 107 H 08/13/19 06:25 Respiratory Rate 20 08/13/19 06:25 Blood Pressure 137/112 H 08/13/19 06:25 O2 Sat by Pulse Oximetry (%) 100 08/13/19 06:25 Constitutional: Yes: Anxious, Obese Eyes: Yes: WNL HENT: Yes: WNL Neck: Yes: WNL Respiratory: Yes: Regular Gastrointestinal: Yes: Soft, Abdomen, Obese Renal/: No: Anuria Cardiovascular: Yes: Regular Rate and Rhythm JVD: No Carotid Bruit: No PMI: Displaced Heart Sounds: Yes: S1, S2, S4 Murmur: Yes: Systolic Murmur, Grade 2 Musculoskeletal: Yes: Back Pain, Joint Stiffness Extremities: Yes: WNL Edema: No Peripheral Pulses WNL: Yes Integumentary: Yes: WNL Neurological: Yes: Alert, Oriented Psychiatric: Yes: Other (pain medication dependence) - Other Data Labs, Other Data: CBC, BMP 08/13/19 09:20 08/13/19 09:20 Troponin, BNP 08/13/19 08/13/19 01:35 01:35 Troponin I 0.03 B-Natriuretic Peptide 4152.1 H Troponin, BNP 08/13/19 08/13/19 01:35 01:35 Troponin I 0.03 B-Natriuretic Peptide 4152.1 H Abnormal Lab Results 08/12/19 08/13/19 08/13/19 07:30 09:20 09:20 WBC 10.9 H Hgb Hct MCV 79.0 L MCH 25.1 L MCHC 31.8 L RDW 19.1 H Plt Count 578 H D MPV 7.3 L Absolute Neuts (auto) 8.1 H Creatinine 1.4 H Random Glucose 145 H Iron TIBC Iron Saturation Unsaturated IBC Total Protein 9.2 H Triglycerides 151 H Cholesterol 205 H Total LDL Cholesterol 126 H Urine Protein 1+ H 08/13/19 08/14/19 09:20 05:50 WBC Hgb 9.6 L Hct 30.4 L MCV 78.6 L MCH 25.0 L MCHC 31.7 L RDW 19.1 H Plt Count 441 H D MPV 7.4 L Absolute Neuts (auto) Creatinine Random Glucose Iron 26 L TIBC 507 H Iron Saturation 5 L Unsaturated IBC 481 H Total Protein Triglycerides Cholesterol Total LDL Cholesterol Urine Protein Echo: Report Reviewed Prior Cardiac Procedures: Cardiac Catheterization Ejection Fraction %: LVEF < 40 % Imaging - Results Cat Scan: Image Reviewed EKG: Image Reviewed Problem List - Problems (1) Systolic CHF Assessment/Plan: On carvedilol, sprionolactone, lisinopril (increased the latter to 10 mg daily) ; add hydralazine + Imdur (systolic CHF; HTN). Discontinue furosemide for now (elevated BNP, but no signs or symptoms of acute CHF; rising Cr). TNI 0.03; f/u serially. EKG: NSR; LVH; nonspecific T wave changes. F/u BUn/Cr, electrolytes, daily weight, Is and Os. F/u results of coronary angiogram done at ?[facility] 6 months ago (pt reports no PCI required). Pt's safety deposit supervisor: Dr. Andres Newman. Code(s): I50.20 - UNSPECIFIED SYSTOLIC (CONGESTIVE) HEART FAILURE (2) DM2 (diabetes mellitus, type 2) Assessment/Plan: Consider SGLT-2 inhibitor. 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 insulin use: unspecified group home insulin use status Diabetes mellitus complication status: with other specified complication Qualified Code(s): E11.69 - Type 2 diabetes mellitus with other specified complication (3) Calculus of gallbladder without cholecystitis without obstruction Code(s): K80.20 - CALCULUS OF GALLBLADDER W/O CHOLECYSTITIS W/O OBSTRUCTION (4) Chronic pain Code(s): G89.29 - OTHER CHRONIC PAIN (5) Eloped from emergency department Code(s): Z53.21 - PROC/TRTMT NOT CRD OUT D/T PT LV BEF SEEN BY [facility] (6) History of pulmonary embolism Assessment/Plan: On apixaban. F/u records of event(s). Code(s): Z86.711 - PERSONAL HISTORY OF PULMONARY EMBOLISM (7) Depression Assessment/Plan: On Venlafaxine (Effexor). Code(s): F32.9 - MAJOR DEPRESSIVE DISORDER, SINGLE EPISODE, UNSPECIFIED (8) Essential hypertension Assessment/Plan: On carvedilol, lisinopril (dose increased), and spironolactone. Add hydralazine + Imdur. Code(s): I10 - ESSENTIAL (PRIMARY) HYPERTENSION (9) Morbid obesity Code(s): E66.01 - MORBID (SEVERE) OBESITY DUE TO EXCESS CALORIES (10) Opioid dependence with withdrawal Assessment/Plan: pain management team/MD would be beneficial. Code(s): F11.23 - OPIOID DEPENDENCE WITH WITHDRAWAL (11) Acute renal insufficiency Assessment/Plan: discontinue furosemide (no evidence of acute CHF; rising Cr). On spironolactone (severe systolic LV dysfunction). F/u Is and Os, BUn/Cr, electrolytes. Code(s): N28.9 - DISORDER OF KIDNEY AND URETER, UNSPECIFIED (12) Dulce cardiac risk >20% in next 10 years Assessment/Plan: coronary artery evaluation was apparently done (coronary angiogram 2019); f/u findings, which pt reports did not require PCI. F/u lipids. Code(s): Z91.89 - OTH PERSONAL RISK FACTORS, NOT ELSEWHERE CLASSIFIED (13) Anemia Assessment/Plan: GI workup in progress. Await records of coronary workup prior to giving cardiac clearance for possible GI procedure(s). Code(s): D64.9 - ANEMIA, UNSPECIFIED
--- NOTE | 2019-08-13 14:21 | CON.PULM ---
Consult Consult Specialty:: PULMONARY Referred by:: Dr Lawton Reason for Consultation:: r/o AMANDA - History of Present Illness Chief Complaint: shortness of breath History of Present Illness: 58yo female with h/o HTN, hyperlipidemia, LV systolic dysfunction, PE on anticoagulation, GERD who was admitted with worsening shortness of breath x 2 weeks. Denies chest pain or palpitations. No fevers, chills or sweats. Reports a nonproductive cough without wheezing. She is a remote smoker, no history of asthma or COPD. She denies being a snorer but wakes up multiple times a night. She does not feel rested upon awakening and does experience daytime somnolence. - Past Medical History Cardio/Vascular: Yes: CHF, HTN. No: Deep Vein Thrombosis (pt denies) Pulmonary: Yes: Pulmonary Embolus (May 2018 - on Eliquis) Gastrointestinal: Yes: Constipation, GERD Renal/: Yes: Renal Inusuff ...LMP: 09/23/13 Psych: Yes: Depression, Other (chronic opioid use) Musculoskeletal: Yes: Chronic low back pain, Osteoarthritis (left knee pain requiring replacement) Endocrine: Yes: Diabetes Mellitus ("they told me I have it, but don't need meds anymore") - Past Surgical History Past Surgical History: Yes: None - Alcohol/Substance Use Hx Alcohol Use: No History of Substance Use: reports: Prescription (chronic use Percocet, under care of pain management doctors) - Smoking History Smoking history: Never smoked Have you smoked in the past 12 months: No - Social History ADL: Independent (usually) Home Medications - Allergies Allergies/Adverse Reactions: Allergies Allergy/AdvReac Type Severity Reaction Status Date / Time No Known Allergies Allergy Verified 08/08/19 12:48 - Home Medications Home Medications: Ambulatory Orders Carvedilol [Coreg] 25 mg PO BID 08/03/17 Cyclobenzaprine HCl 10 mg PO BID 08/04/17 Oxycodone HCl/Acetaminophen [Oxycodone-Acetaminophen 10-325] 1 each PO Q6H PRN MDD 4/day 08/04/17 Quetiapine Fumarate [Seroquel -] 200 mg PO HS 08/04/17 Venlafaxine HCl ER [Effexor Xr -] 75 mg PO TID 01/12/18 Zolpidem Tartrate [Ambien] 10 mg PO HS 01/12/18 Gabapentin [Neurontin -] 400 mg PO Q8H 01/03/19 Ranitidine [Zantac -] 150 mg PO BID 01/03/19 Apixaban [Eliquis -] 5 mg PO BID tablet 01/07/19 Docusate Sodium [Colace -] 100 mg PO TID capsule 01/07/19 Polyethylene Glycol 3350 [Miralax 119 gm Btl -] 17 gm PO DAILY bottle 01/07/19 Sennosides [Senna -] 2 tab PO HS tablet 01/07/19 Lidocaine 5% Patch [Lidoderm -] 1 patch TP DAILY #30 patch 04/28/19 oxyCODONE SR [Oxycontin] 15 mg PO BID 06/17/19 Ferrous Sulfate [Feosol] 325 mg PO DAILY #30 tab 06/18/19 Lisinopril [Prinivil] 5 mg PO DAILY #30 tablet 06/18/19 Spironolactone [Aldactone -] 25 mg PO DAILY #30 tablet 06/18/19 Furosemide [Lasix -] 40 mg PO BID 08/13/19 Lisinopril [Zestril] 2.5 mg PO DAILY 08/13/19 Review of Systems - Review of Systems Constitutional: reports: Weakness. denies: Chills, Fever Eyes: denies: Recent Change in Vision HENT: denies: Nasal Congestion, Throat Pain Neck: denies: Stiffness, Tenderness Cardiovascular: reports: Shortness of Breath. denies: Chest Pain, Edema Respiratory: reports: Cough, SOB on Exertion. denies: Hemoptysis, Wheezing Gastrointestinal: denies: Abdominal Pain, Nausea, Vomiting Genitourinary: denies: Dysuria, Hematuria Neurological: denies: Dizziness, Headache Endocrine: denies: Unexplained Weight Loss Physical Exam Vital Sings: Vital Signs Temperature 97.9 F 08/13/19 06:25 Pulse Rate 107 H 08/13/19 06:25 Respiratory Rate 20 08/13/19 06:25 Blood Pressure 137/112 H 08/13/19 06:25 O2 Sat by Pulse Oximetry (%) 100 08/13/19 06:25 Constitutional: Yes: Calm Eyes: Yes: Conjunctiva Clear, EOM Intact HENT: Yes: Atraumatic, Normocephalic, Other (crowded posterior oropharynx) Neck: Yes: Supple, Trachea Midline Cardiovascular: Yes: Regular Rate and Rhythm Respiratory: Yes: CTA Bilaterally (decreased breath sounds at the bases) ...Clubbing: No Gastrointestinal: Yes: Normal Bowel Sounds, Soft. No: Tenderness Edema: No Neurological: Yes: Alert, Oriented Labs: CBC, BMP 08/13/19 09:20 08/13/19 09:20 Imaging - Results Cat Scan: Report Reviewed, Image Reviewed (cardiomegaly, small pericardial effusion) Assessment/Plan Acute on Chronic Systolic Heart Failure h/o PE Likely Obstructive Sleep Apnea HTN Hyperlipidemia Morbid Obesity Noncompliance - IV lasix - monitor urine output, creatinine - daily weights - encourage compliance with diet and medications - O2 to keep Spo2 >90% - continue anticoagulation - will order sleep screen but will need formal NPSG as outpt Thank you for this consult Andres Pierce MD
--- NOTE | 2019-08-13 14:22 | PN ---
Teaching Attending Note Name of Resident: Terri Cheung ATTENDING PHYSICIAN STATEMENT I saw and evaluated the patient. I reviewed the resident's note and discussed the case with the resident. I agree with the resident's findings and plan as documented. SUBJECTIVE: complains of pain in her legs,. has no SOB at this time. has no PC , no fever or chills. No palpitations She reperots not taking her evening dose of lasix due to night time urination . reprots eating Cuban fod OBJECTIVE: NAD , awake, alert, cooperative CV: RRR, no MRG , No JVd, neg hepatojugular reflux Lungs: CTAB , decreases breath sounds b/l bases Ext : trace edema , varicose veins. ASSESSMENT AND PLAN: 58 y/o man with h/o cardiomyopathy, HTN, systolic CHF, cholelithiasis, GERD, , HTN and other medical problems who presented with SOb and leg pain. 1- SOB : now improved. received lasix on admission. per card, no signs fo acute CHF exacerbation . no PE on CTA. - monitor off lasix for now 2- H/o systolic and diastolic CHF: - echo 06/17/19 reviewed. No pericardial effusion. on CT of chest, pericardial effusion seen. - Echo to follow up on effusion. - per card , hold lasix. might need to resume home dose of 40 po BID in am - cont ACEI, and coreg - cont spironolactone - will d/w card the need for ICD vs life vest. 3-HTn urgency: - cont coreg, and increased dose of lisinopril - EKG with TWI in inferior leads. old 4- Microcytic anemia : - iron studies were done. will add ferritin to am labs - cont home ferrous sulfate - further w/u as out pt 5- H/o PE: cont xarelto 6- Hyperlipidemia: elevated framingham risk score. - add statin 7- DVT PX : xarelto
--- NOTE | 2019-08-13 15:43 | PN ---
Physical Exam: SUBJECTIVE: Patient seen and examined at the bedside. Patient was very agitated and was complaining of the pain in her legs. She noted that she had some shortness of breath. Otherwise denied cp, palpitations, abd pain, n/v/c/d, headaches, dizziness, lightheadedness. She endorsed that she was not always compliant with her medications because the Lasix would make her frequently urinate. OBJECTIVE: Vital Signs Period Temp Pulse Resp BP Sys/Vilchis Pulse Ox Last 24 Hr 97.9 F-98.7 F 98-107 16-20 137-186/112-117 98-100 GENERAL: The patient is awake, alert, and fully oriented, in noted acute distress regarding the pain in her legs. HEAD: Normal with no signs of trauma. EYES: PERRL, extraocular movements intact, sclera anicteric, conjunctiva clear. ENT: Oropharynx clear without exudates, moist mucous membranes. NECK: Trachea midline, no noted JVD or hepatojugular reflex. LUNGS: Decreased breath sound bilaterally, no noted wheezes or crackles, no accessory muscle use. HEART: Regular rate and rhythm, S1, S2 without murmur, rub. ABDOMEN: Soft, nontender, nondistended, normoactive bowel sounds, no guarding, no rebound, no masses. EXTREMITIES: 2+ pulses, warm, well-perfused, trace peripheral edema. NEUROLOGICAL: Cranial nerves II through XII grossly intact. 5/5 muscle strength bilaterally upper and lower extremities. PSYCH: Upset mood. SKIN: Warm, dry, normal turgor, no rashes or lesions noted. Laboratory Results - last 24 hr 08/12/19 08/13/19 08/13/19 07:30 01:35 01:35 WBC 9.9 RBC 3.94 Hgb 9.9 L Hct 31.3 L MCV 79.4 L MCH 25.2 L MCHC 31.7 L RDW 18.9 H Plt Count 462 H D MPV 7.1 L Absolute Neuts (auto) 6.1 Neutrophils % 61.2 Lymphocytes % 24.2 D Monocytes % 10.9 H Eosinophils % 2.5 Basophils % 1.2 Nucleated RBC % 0 PTT (Actin FS) 37.9 H Sodium Potassium Chloride Carbon Dioxide Anion Gap BUN Creatinine Est GFR (CKD-EPI)AfAm Est GFR (CKD-EPI)NonAf Random Glucose Calcium Phosphorus Magnesium Iron TIBC Iron Saturation Unsaturated IBC Ferritin Total Bilirubin AST ALT Alkaline Phosphatase Troponin I B-Natriuretic Peptide Total Protein Albumin Triglycerides Cholesterol Total LDL Cholesterol HDL Cholesterol Urine Color Yellow Urine Appearance Clear Urine pH 5.5 Ur Specific [place] 1.014 Urine Protein 1+ H Urine Glucose (UA) Negative Urine Ketones Negative Urine Blood Negative Urine Nitrite Negative Urine Bilirubin Negative Urine Urobilinogen 0.2 Ur Leukocyte Esterase Negative Urine WBC (Auto) 1 Urine RBC (Auto) 0 Urine Casts (Auto) 0 U Epithel Cells (Auto) 1.1 Urine Bacteria (Auto) 75.5 08/13/19 08/13/19 08/13/19 01:35 01:35 09:20 WBC 10.9 H RBC 4.31 Hgb 10.8 Hct 34.0 MCV 79.0 L MCH 25.1 L MCHC 31.8 L RDW 19.1 H Plt Count 578 H D MPV 7.3 L Absolute Neuts (auto) 8.1 H Neutrophils % 74.6 D Lymphocytes % 15.4 D Monocytes % 8.3 Eosinophils % 0.6 Basophils % 1.1 Nucleated RBC % 0 PTT (Actin FS) Sodium 138 Potassium 4.0 Chloride 107 Carbon Dioxide 24 Anion Gap 8 BUN 17.4 Creatinine 1.3 Est GFR (CKD-EPI)AfAm 52.00 Est GFR (CKD-EPI)NonAf 44.87 Random Glucose 122 H Calcium 9.3 Phosphorus Magnesium Iron TIBC Iron Saturation Unsaturated IBC Ferritin Total Bilirubin 0.4 AST 21 ALT 23 Alkaline Phosphatase 102 Troponin I 0.03 B-Natriuretic Peptide 4152.1 H Total Protein 8.3 H Albumin 3.8 Triglycerides Cholesterol Total LDL Cholesterol HDL Cholesterol Urine Color Urine Appearance Urine pH Ur Specific [place] Urine Protein Urine Glucose (UA) Urine Ketones Urine Blood Urine Nitrite Urine Bilirubin Urine Urobilinogen Ur Leukocyte Esterase Urine WBC (Auto) Urine RBC (Auto) Urine Casts (Auto) U Epithel Cells (Auto) Urine Bacteria (Auto) 08/13/19 08/13/19 09:20 09:20 WBC RBC Hgb Hct MCV MCH MCHC RDW Plt Count MPV Absolute Neuts (auto) Neutrophils % Lymphocytes % Monocytes % Eosinophils % Basophils % Nucleated RBC % PTT (Actin FS) Sodium 136 Potassium 3.8 Chloride 103 Carbon Dioxide 24 Anion Gap 9 BUN 14.8 Creatinine 1.4 H Est GFR (CKD-EPI)AfAm 47.55 Est GFR (CKD-EPI)NonAf 41.02 Random Glucose 145 H Calcium 9.7 Phosphorus 3.2 Magnesium 2.3 Iron 26 L TIBC 507 H Iron Saturation 5 L Unsaturated IBC 481 H Ferritin 25.2 Total Bilirubin 0.4 AST 16 ALT 25 Alkaline Phosphatase 115 Troponin I B-Natriuretic Peptide Total Protein 9.2 H Albumin 4.3 Triglycerides 151 H Cholesterol 205 H Total LDL Cholesterol 126 H HDL Cholesterol 57 Urine Color Urine Appearance Urine pH Ur Specific [place] Urine Protein Urine Glucose (UA) Urine Ketones Urine Blood Urine Nitrite Urine Bilirubin Urine Urobilinogen Ur Leukocyte Esterase Urine WBC (Auto) Urine RBC (Auto) Urine Casts (Auto) U Epithel Cells (Auto) Urine Bacteria (Auto) Active Medications Generic Name Dose Route Start Last Admin Trade Name Freq PRN Reason Stop Dose Admin Acetaminophen 325 mg 08/13/19 11:41 Tylenol - PO Q6H PRN PAIN LEVEL 6-10 Apixaban 5 mg 08/13/19 10:00 08/13/19 09:50 Eliquis - PO 5 mg BID EMILI Administration Atorvastatin Calcium 40 mg 08/13/19 22:00 Lipitor - PO HS EMILI Carvedilol 25 mg 08/13/19 10:00 08/13/19 09:50 Coreg - PO 25 mg BID EMILI Administration Cyclobenzaprine HCl 10 mg 08/13/19 10:00 08/13/19 09:50 Flexeril - PO 10 mg DAILY EMILI Administration Docusate Sodium 100 mg 08/13/19 06:00 08/13/19 06:05 Colace - PO 100 mg TID EMILI Administration Famotidine 20 mg 08/13/19 10:00 08/13/19 09:50 Pepcid - PO 20 mg BID EMILI Administration Ferrous Sulfate 325 mg 08/13/19 10:00 08/13/19 10:05 Feosol - PO 325 mg DAILY EMILI Administration Gabapentin 400 mg 08/13/19 06:28 Neurontin - PO TID [facility] Lidocaine 1 patch 08/13/19 10:00 08/13/19 09:50 Lidoderm Patch - TP 1 patch DAILY EMILI Administration Lisinopril 10 mg 08/14/19 10:00 Prinivil PO DAILY [facility] Miscellaneous 1 each 08/13/19 22:00 Lidoderm Patch Removal MC DAILY@2199 EMILI Oxycodone HCl 10 mg 08/13/19 10:00 08/13/19 11:15 Oxycontin - PO 10 mg BID EMILI Administration Oxycodone HCl 5 mg 08/13/19 11:41 Roxicodone - PO Q6H PRN PAIN LEVEL 6-10 Pantoprazole Sodium 40 mg 08/13/19 10:00 08/13/19 11:15 Protonix - PO 40 mg DAILY EMILI Administration Polyethylene Glycol 17 gm 08/13/19 10:00 08/13/19 09:50 Miralax (For Daily Use) - PO 17 gm DAILY EMILI Administration Senna 2 tab 08/13/19 22:00 Senna - PO HS EMILI Spironolactone 25 mg 08/13/19 10:00 08/13/19 09:50 Aldactone - PO 25 mg DAILY EMILI Administration Venlafaxine HCl 75 mg 08/13/19 06:00 08/13/19 06:23 Effexor Xr - PO 75 mg TID EMILI Administration ASSESSMENT/PLAN: Casey Greenwood is a 58 year old female with a past medical history of CHF, PE (on eliquis), HTN, HLD, chronic LLE pain, GERD admitted for shortness of breath. Shortness of breath - BNP 4152, highest in this hospital - previous echo (06/25): EF of 25%, will discuss if necessary for lifevest - CTA: no evidence of PE, with noted pericardial effusion - repeat echo to evaluate effusion - Duplex: no evidence of DVT - no clinical signs of CHF, monitor off Lasix for now, may resume home Lasix in the morning pending CRE and fluid status - Strict I&O's, daily weights, restricted fluid intake - Tele monitoring - Cardiology consultation, recs appreciated - Respiratory consultation, recs appreciated, sleep apnea screening Microcytic anemia - iron studies noting iron deficiency anemia - continue home ferrous sulfate - will need outpatient GI followup Hypetensive urgency - Will cont pt's home meds: Coreg 25mg BID, Aldactone 25mg daily - increase lisinopril to 10mg daily - Discussed importance of weight loss, salt restriction, and exercise - EKG with noted T wave inversions present on previous EKG HLD - elevated chol, LDL - Lipitor 40mg Hx of PE - Cont home eliquis 5mg BID Chronic LLE pain - Cont Oxy 10mg daily, Flexeril 10mg, Neurontin 400mg Q8H, lidoderm patch, Percocet 5-325mg q6h prn DVT ppx - On eliquis FEN - No standing fluids, caution with fluid in setting of CHF - continue to monitor electrolytes and replete as necessary - Salt-controlled diet, consult assistant administrator Dispo - continue to monitor on telemetry Visit type - Emergency Visit Emergency Visit: Yes ED Registration Date: 08/13/19 Care time: The patient presented to the Emergency Department on the above date and was hospitalized for further evaluation of their emergent condition. - New Patient This patient is new to me today: Yes Date on this admission: 08/13/19 - Critical Care Critical Care patient: No
[2019-08-13] MEDS: GABAPENTIN 400 MG CAPSULE (FP) PO SCH ×2 (16:10→21:26)
[2019-08-13] MEDS: ACETAMINOPHEN 325 MG TABLET (FP) PO PRN ×2 (16:11→21:25)
[2019-08-13] MEDS: oxyCODONE HCL 5 MG TABLET PO PRN ×2 (16:11→21:28)
[2019-08-13] MEDS ORDERED: FUROSEMIDE 40 MG/4 ML INJECTABLE VIAL IVPUSH SCH (18:00)
--- NOTE | 2019-08-13 19:04 | PN ---
Progress Note (short form) - Note Progress Note: GI CONSULT DICTATED - OPTIMIZE FROM A CARDIOPULMONARY PERSPECTIVE - PLAN FOR OUTPT EGD / COLONOSCOPY -PPI - MONITOR H/H - AVOID NSAID SEE FULL CONSULT DICTATED
--- NOTE | 2019-08-13 19:49 | CONS ---
DATE OF CONSULTATION: DATE OF DICTATION: 08/13/2019 GASTROINTESTINAL CONSULTATION HISTORY OF PRESENT ILLNESS: The patient is a 58-year-old female. Past medical history significant for pulmonary embolism on Eliquis, hypertension, hyperlipidemia, chronic left lower extremity pain, reflux disease, CHF, who presents to the hospital with complaints of shortness of breath worsening over the past week. Apparently she was admitted to the hospital in June for CHF exacerbation, and now her symptoms have returned. Apparently, she is not compliant with her diet. This consultation is for anemia. Patient denies any abdominal pain, nausea, vomiting, hematemesis, hematochezia or melena. She has never had an endoscopic evaluation in the past. She does take Eliquis but denies taking any NSAIDs. PAST MEDICAL AND SURGICAL HISTORY: As listed in the HPI. ALLERGIES: No known drug allergies. SOCIAL HISTORY: Does not drink, smoke, or use drugs. FAMILY HISTORY: No history of GI or gynecological malignancy. HOME MEDICATIONS: Reviewed, include Coreg, cyclobenzaprine, Percocet, Seroquel, , ranitidine, Eliquis, Colace, MiraLAX, senna, Lidoderm, OxyContin, iron, , and Aldactone. REVIEW OF SYSTEMS: As per the HPI. PHYSICAL EXAMINATION: Vital Signs: Temperature 98, pulse 100, blood pressure 168/130, blood pressure 137/112, saturation of oxygen 100% on room air. General: In no acute distress. HEENT: Anicteric sclerae. Cardiovascular: S1, S2, regular rate and rhythm. Lungs: Bilaterally clear to auscultation. Abdomen: Soft, nontender. Obese. Extremities: With edema. LABORATORY: White blood cell count 10, hemoglobin and hematocrit 10.8/34, MCV 79, platelet count 578, INR 37. Sodium 136, potassium 3.8, BUN/creatinine 14/1.4, glucose 145, iron 26 TIBC 507, within normal limits. Urine 1+ protein. She had chest and thorax CTA which did not reveal central pulmonary embolism, borderline cardiomegaly, trace pleural effusions, paraesophageal hiatal hernia, and cholelithiasis. IMPRESSION: Microcytic anemia, gastrointestinal blood loss cannot be excluded particularly in the setting of anticoagulation. There is no sign of an overt gastrointestinal bleed at this time. She is hemodynamically stable. RECOMMENDATION: She should be optimized from cardiopulmonary perspective and treated for her underlying congestive heart failure exacerbation. Her hemoglobin and hematocrit should be monitored daily while hospitalized. She can be started on Protonix 40 mg p.o. daily, diet as tolerated. She would benefit from a diagnostic upper endoscopy and colonoscopy; this however can be done as an outpatient once she is improved clinically. Avoid additional NSAIDs. DO DMITRIY RICHARDSON/[id number]
[2019-08-13] MEDS: hydrALAZINE HCL 10 MG TABLET PO SCH (21:16)
[2019-08-13] MEDS: SENNOSIDES 8.6MG TABLET (FP) PO SCH (21:25)
[2019-08-13] MEDS: ATORVASTATIN CA 40 MG TABLET (FP) PO SCH (21:26)
[2019-08-13] MEDS: ISOSORBIDE MONONITRATE 30 MG TAB.SR.24H (FP) PO SCH (21:26)
[2019-08-13] MEDS ORDERED: VENLAFAXINE HCL 75 MG TABLET PO SCH (22:00)
[2019-08-13] MEDS: LIDOCAINE PATCH REMOVAL MC SCH (22:00)
[2019-08-13] MEDS: ZOLPIDEM TARTRATE 5 MG TABLET PO PRN (23:08)
--- NOTE | 2019-08-13 23:52 | FALL ---
Fall Exam - Event Witnessed fall: No Location of Fall: Patient Room - Pre-Fall Mental Status: Alert Current Medications: Current Medications Generic Name Dose Route Start Last Admin Trade Name Freq PRN Reason Stop Dose Admin Acetaminophen 325 mg 08/13/19 11:41 08/13/19 21:25 Tylenol - PO 325 mg Q6H PRN Administration PAIN LEVEL 6-10 Apixaban 5 mg 08/13/19 10:00 08/13/19 21:26 Eliquis - PO 5 mg BID EMILI Administration Atorvastatin Calcium 40 mg 08/13/19 22:00 08/13/19 21:26 Lipitor - PO 40 mg HS EMILI Administration Carvedilol 25 mg 08/13/19 10:00 08/13/19 21:26 Coreg - PO 25 mg BID EMILI Administration Cyclobenzaprine HCl 10 mg 08/13/19 10:00 08/13/19 09:50 Flexeril - PO 10 mg DAILY EMILI Administration Docusate Sodium 100 mg 08/13/19 06:00 08/13/19 21:25 Colace - PO 100 mg TID EMILI Administration Famotidine 20 mg 08/13/19 10:00 08/13/19 21:27 Pepcid - PO 20 mg BID EMILI Administration Ferrous Sulfate 325 mg 08/13/19 10:00 08/13/19 10:05 Feosol - PO 325 mg DAILY EMILI Administration Hydralazine HCl 10 mg 08/13/19 20:30 08/13/19 21:16 Apresoline - PO Not Given BID EMILI Isosorbide Mononitrate 30 mg 08/13/19 20:15 08/13/19 21:26 Imdur - PO 30 mg DAILY EMILI Administration Lidocaine 1 patch 08/13/19 10:00 08/13/19 09:50 Lidoderm Patch - TP 1 patch DAILY EMILI Administration Lisinopril 10 mg 08/14/19 10:00 Prinivil PO DAILY [facility] Miscellaneous 1 each 08/13/19 22:00 Lidoderm Patch Removal MC DAILY@2200 EMILI Oxycodone HCl 10 mg 08/13/19 10:00 08/13/19 21:26 Oxycontin - PO 10 mg BID EMILI Administration Oxycodone HCl 5 mg 08/13/19 11:41 08/13/19 21:28 Roxicodone - PO 5 mg Q6H PRN Administration PAIN LEVEL 6-10 Pantoprazole Sodium 40 mg 08/13/19 10:00 08/13/19 11:15 Protonix - PO 40 mg DAILY EMILI Administration Polyethylene Glycol 17 gm 08/13/19 10:00 08/13/19 09:50 Miralax (For Daily Use) - PO 17 gm DAILY EMILI Administration Senna 2 tab 08/13/19 22:00 08/13/19 21:25 Senna - PO 2 tab HS EMILI Administration Spironolactone 25 mg 08/13/19 10:00 08/13/19 09:50 Aldactone - PO 25 mg DAILY EMILI Administration Venlafaxine HCl 75 mg 08/14/19 08:00 Effexor - PO TIDCM EMILI Zolpidem Tartrate 10 mg 08/13/19 22:00 08/13/19 23:08 Ambien - PO 10 mg HS PRN Administration INSOMNIA - Post-Fall Patient Outcome: Pain Only Treatment: None Vital Signs: Vital Signs Temperature 98.2 F 08/13/19 12:00 Pulse Rate 110 H 08/13/19 09:00 Respiratory Rate 08/13/19 12:00 Blood Pressure 155/98 08/13/19 12:00 O2 Sat by Pulse Oximetry (%) 100 08/13/19 06:25 Identify factors for HIGH RISK for Head Injury: Pt on anticoagulant
[2019-08-14] MEDS: oxyCODONE HCL 5 MG TABLET PO PRN ×4 (03:00→21:28)
[2019-08-14] MEDS: ACETAMINOPHEN 325 MG TABLET (FP) PO PRN (03:00)
[2019-08-14] MEDS: DOCUSATE SODIUM 100 MG CAPSULE (FP) PO SCH ×3 (06:15→21:08)
[2019-08-14 07:12] LABS: BASO % 0.8 % (0-2.0); EOS % 2.2 % (0-4.5); HEMATOCRIT 30.4 % (32.4-45.2); HEMOGLOBIN 9.6 GM/dL (10.7-15.3); LYMPH % 29.6 % (8-40); MCHC 31.7 g/dl (32.0-36.0); MEAN CELL VOLUME 78.6 fl (80-96); MEAN PLT VOLUME 7.4 fl (7.5-11.1); MONO % 9.9 % (3.8-10.2); NEUT % 57.5 % (42.8-82.8); PLATELET COUNT 441 K/MM3 (134-434); RBC 3.86 M/mm3 (3.60-5.2); RDW 19.1 % (11.6-15.6); WHITE BLOOD COUNT 8.5 K/mm3 (4.0-10.0)
[2019-08-14] MEDS ORDERED: FUROSEMIDE 40 MG TABLET (FP) PO SCH (07:15)
[2019-08-14 08:05] LABS: BLOOD UREA NITROGEN 25.1 mg/dL (7-18); CALCIUM 9.2 mg/dL (8.5-10.1); CREATININE 1.5 mg/dL (0.55-1.3); MAGNESIUM 2.1 mg/dL (1.8-2.4); POTASSIUM 3.8 mmol/L (3.5-5.1)
--- NOTE | 2019-08-14 08:48 | PN ---
Teaching Attending Note Name of Resident: Anthony Dixon ATTENDING PHYSICIAN STATEMENT Seen and examined; please see resident note for further historical information. I personally verified all jaimes historical information and exam findings. Personally interpreted all imaging and diagnostics and reviewed appropriate consults. I reviewed all labs and vital signs as per resident note and EMR as documented. I agree with the above assessment and plan unless supplemented by myself in the following. Overnight note reviewed; fall last night noted, imaging studies discussed below. cardiology is following, appreciate expert consultation 10 item review of systems is negative aside from HPI VS, labs, imaging reviewed NAD, AAO, resting comfortably in bed. RRR s1/2 no mgr Normal muscle tone, moves all 5 extremities with normal apparent strength Neck is supple, trachea midline, no shayla LN Lungs CTAB with sym expansion NT ND +BS no shayla organomegaly CN2-12 wnl; no FND NC AT EOMI PERRLA Normal mood, appropriate behavior, euthymic affect No skin breakdown or rashes noted CT head taken last night is negative for any acute issues but shows moderate diffuse supratentorial chronic white matter microangiopathic ischemic changes with gliosis and demyelination CTA negative for pulmonary embolism; paraesophageal hernia noted Echocardiogram 06/17/2019 reviewed. Shows moderately dilated left ventricle with 25 to 30% LVEF with grade 1 diastolic dysfunction mildly dilated left atrium mild mitral valve thickening with mild regurgitation noted, mild pulmonary valvular regurgitation, no pericardial effusion Pending discussion with Dr. Newman LE negative for DVT Assessment and Plan: Patient with a history of CHF secondary to ?Dilated CMyo, hypertension, cholelithiasis, GERD, hypertension Problems include: -Shortness of breath secondary to CHF exacerbation, improved (Follows with Dr. 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 Checking ISTOP; has been consistently requesting narcotics [per CV consultation: "patient has consistently asked for narcotic pain management, she was advised that due to history of noncompliance and enrollment in pain management on an outpatient basis this will be discussed with the admitting team ". Checking L-spine MRI given >3 months of symptoms with +radiculopathy and sx persisting despite treatment. If needed will consult neurosurgery] -Degenerative Joint Disease of the R-shoulder (noted on XR) -Hx DM -Hypertensive urgency -Microcytic anemia -History of pulmonary embolism on Xarelto, continue Xarelto, no PE seen per radiology -History of hyperlipidemia -History of uncontrolled hypertension, as per above -Demyelination noted on CT (seen last admission with MRI done and discussed with Dr. Pierre at that time; he states that the process seen was likely secondary to microvascular changes. Given persisting pain and fall will reconsult to see if he wants any further workup vs. OP followup) -Paraesophageal Hiatal Hernia (Seen on CTA Chest) -Morbid obesity (BMI 43) -History of Noncompliance Full Code
[2019-08-14] MEDS: oxyCODONE HCL 10 MG SUSTAINED ACTING TABLET PO SCH ×2 (09:19→22:50)
[2019-08-14] MEDS: CARVEDILOL 25 MG TABLET (FP) PO SCH ×2 (10:34→21:08)
[2019-08-14] MEDS: hydrALAZINE HCL 10 MG TABLET PO SCH ×2 (10:34→21:08)
[2019-08-14] MEDS: ISOSORBIDE MONONITRATE 30 MG TAB.SR.24H (FP) PO SCH (10:34)
[2019-08-14] MEDS: SPIRONOLACTONE 25 MG TABLET (FP) PO SCH (10:34)
[2019-08-14] MEDS: PANTOPRAZOLE 40 MG TABLET (FP) PO SCH (10:35)
[2019-08-14] MEDS: FERROUS SO4 325 MG TABLET (FP) PO SCH (10:35)
[2019-08-14] MEDS: APIXABAN 5 MG TABLET PO SCH ×2 (10:35→21:08)
[2019-08-14] MEDS: LISINOPRIL 10 MG TABLET (FP) PO SCH (10:35)
[2019-08-14] MEDS: CYCLOBENZAPRINE HCL 10 MG TABLET (FP) PO SCH (10:35)
[2019-08-14] MEDS: POLYETHYLENE GLYCOL 3350 119 GM BTL PO SCH (10:36)
[2019-08-14] MEDS: VENLAFAXINE HCL 75 MG TABLET PO SCH ×3 (10:36→17:29)
[2019-08-14] MEDS: FAMOTIDINE 20 MG TABLET PO SCH ×2 (10:36→21:08)
[2019-08-14] MEDS: LIDOCAINE 5% TOPICAL PATCH TP SCH (10:36)
--- NOTE | 2019-08-14 12:32 | PN ---
Progress Note, Physician History of Present Illness: 58-year-old black woman with history of dilated cardiomyopathy (severe systolic LV dysfunction),?nonobstructive CAD (pt states she had a coronary angiogram at ? [facility] approximately 6 months ago), morbid obesity, HTN, hyperlipidemia, iron -deficiency anemia, "borderline" DM, s/p pulmonary embolism, noncompliance with recent ED visit/elopement, now with increasing shortness of breath and chronic lower back and LE pain. CT shows no obvious new pulmonary embolism We will admit to medical service for further management Of note patient has consistently asked for narcotic pain management, she was advised that due to history of noncompliance and enrollment in pain management on an outpatient basis this will be discussed with the admitting team Pt's ore sampler: Dr. Andres Newman - Current Medication List Current Medications: Active Medications Acetaminophen (Tylenol -) 325 mg PO Q6H PRN PRN Reason: PAIN LEVEL 6-10 Apixaban (Eliquis -) 5 mg PO BID [facility] Last Admin: 08/14/19 10:35 Dose: 5 mg Atorvastatin Calcium (Lipitor -) 40 mg PO HS [facility] Last Admin: 08/13/19 21:26 Dose: 40 mg Carvedilol (Coreg -) 25 mg PO BID [facility] Last Admin: 08/14/19 10:34 Dose: 25 mg Cyclobenzaprine HCl (Flexeril -) 10 mg PO DAILY [facility] Last Admin: 08/14/19 10:35 Dose: 10 mg Docusate Sodium (Colace -) 100 mg PO TID [facility] Last Admin: 08/14/19 06:15 Dose: Not Given Famotidine (Pepcid -) 20 mg PO BID [facility] Last Admin: 08/14/19 10:36 Dose: 20 mg Ferrous Sulfate (Feosol -) 325 mg PO DAILY [facility] Last Admin: 08/14/19 10:35 Dose: 325 mg Furosemide (Lasix -) 40 mg PO BIDLASIX [facility] Last Admin: 08/14/19 10:36 Dose: 40 mg Hydralazine HCl (Apresoline -) 10 mg PO BID [facility] Last Admin: 08/14/19 10:34 Dose: 10 mg Isosorbide Mononitrate (Imdur -) 30 mg PO DAILY [facility] Last Admin: 08/14/19 10:34 Dose: 30 mg Lidocaine (Lidoderm Patch -) 1 patch TP DAILY [facility] Last Admin: 08/14/19 10:36 Dose: 1 patch Lisinopril (Prinivil) 10 mg PO DAILY [facility] Last Admin: 08/14/19 10:35 Dose: 10 mg Miscellaneous (Lidoderm Patch Removal) 1 each MC DAILY@2200 [facility] Last Admin: 08/13/19 22:00 Dose: 1 each Oxycodone HCl (Oxycontin -) 10 mg PO BID [facility] Last Admin: 08/14/19 09:19 Dose: 10 mg Oxycodone HCl (Roxicodone -) 10 mg PO Q6H PRN PRN Reason: PAIN LEVEL 6-10 Last Admin: 08/14/19 10:35 Dose: 10 mg Pantoprazole Sodium (Protonix -) 40 mg PO DAILY [facility] Last Admin: 08/14/19 10:35 Dose: 40 mg Polyethylene Glycol (Miralax (For Daily Use) -) 17 gm PO DAILY [facility] Last Admin: 08/14/19 10:36 Dose: 17 gm Senna (Senna -) 2 tab PO HS [facility] Last Admin: 08/13/19 21:25 Dose: 2 tab Spironolactone (Aldactone -) 25 mg PO DAILY [facility] Last Admin: 08/14/19 10:34 Dose: 25 mg Venlafaxine HCl (Effexor -) 75 mg PO TIDCM [facility] Last Admin: 08/14/19 10:36 Dose: 75 mg Zolpidem Tartrate (Ambien -) 10 mg PO HS PRN PRN Reason: INSOMNIA Last Admin: 08/13/19 23:08 Dose: 10 mg - Objective Vital Signs: Vital Signs Temperature 98 F 08/14/19 06:00 Pulse Rate 80 08/14/19 06:00 Respiratory Rate 20 08/14/19 06:00 Blood Pressure 147/82 08/14/19 06:00 O2 Sat by Pulse Oximetry (%) 100 08/13/19 06:25 Eyes: Yes: WNL, Conjunctiva Clear, EOM Intact HENT: Yes: WNL, Atraumatic, Normocephalic Neck: Yes: WNL, Supple, Trachea Midline Cardiovascular: Yes: WNL, Regular Rate and Rhythm Respiratory: Yes: WNL, Regular, CTA Bilaterally Gastrointestinal: Yes: WNL, Normal Bowel Sounds Genitourinary: Yes: WNL Musculoskeletal: Yes: WNL Extremities: Yes: WNL Edema: No Integumentary: Yes: WNL Neurological: Yes: WNL, Alert, Oriented ...Motor Strength: WNL Psychiatric: Yes: WNL Labs: CBC, BMP 08/14/19 05:50 08/14/19 05:50 Assessment/Plan - Problems (1) Systolic CHF Assessment/Plan: On carvedilol, sprionolactone, lisinopril (increased the latter to 10 mg daily) ; add hydralazine + Imdur (systolic CHF; HTN). Discontinue furosemide for now (elevated BNP, but no signs or symptoms of acute CHF; rising Cr). TNI 0.03; f/u serially. EKG: NSR; LVH; nonspecific T wave changes. F/u BUn/Cr, electrolytes, daily weight, Is and Os. F/u results of coronary angiogram done at [facility] 6 months ago (pt reports no PCI required). Pt's ore sampler: Dr. Andres Newman. Code(s): I50.20 - UNSPECIFIED SYSTOLIC (CONGESTIVE) HEART FAILURE (2) DM2 (diabetes mellitus, type 2) Assessment/Plan: Consider SGLT-2 inhibitor. Code(s): E11.9 - TYPE 2 DIABETES MELLITUS WITHOUT COMPLICATIONS Qualifiers: Diabetes mellitus assisted insulin use: unspecified assisted insulin use status Diabetes mellitus complication status: with other specified complication Qualified Code(s): E11.69 - Type 2 diabetes mellitus with other specified complication (3) Calculus of gallbladder without cholecystitis without obstruction Code(s): K80.20 - CALCULUS OF GALLBLADDER W/O CHOLECYSTITIS W/O OBSTRUCTION (4) Chronic pain Code(s): G89.29 - OTHER CHRONIC PAIN (5) Eloped from emergency department Code(s): Z53.21 - PROC/TRTMT NOT CRD OUT D/T PT LV BEF SEEN BY [facility] (6) History of pulmonary embolism Assessment/Plan: On apixaban. F/u records of event(s). Code(s): Z86.711 - PERSONAL HISTORY OF PULMONARY EMBOLISM (7) Depression Assessment/Plan: On Venlafaxine (Effexor). Code(s): F32.9 - MAJOR DEPRESSIVE DISORDER, SINGLE EPISODE, UNSPECIFIED (8) Essential hypertension Assessment/Plan: On carvedilol, lisinopril (dose increased), and spironolactone. Add hydralazine + Imdur. Code(s): I10 - ESSENTIAL (PRIMARY) HYPERTENSION (9) Morbid obesity Code(s): E66.01 - MORBID (SEVERE) OBESITY DUE TO EXCESS CALORIES (10) Opioid dependence with withdrawal Assessment/Plan: pain management team/MD would be beneficial. Code(s): F11.23 - OPIOID DEPENDENCE WITH WITHDRAWAL (11) Acute renal insufficiency Assessment/Plan: discontinue furosemide (no evidence of acute CHF; rising Cr). On spironolactone (severe systolic LV dysfunction). F/u Is and Os, BUn/Cr, electrolytes. Code(s): N28.9 - DISORDER OF KIDNEY AND URETER, UNSPECIFIED (12) [place] cardiac risk >20% in next 10 years Assessment/Plan: coronary artery evaluation was apparently done (coronary angiogram 2019); f/u findings, which pt reports did not require PCI. F/u lipids. Code(s): Z91.89 - OTH PERSONAL RISK FACTORS, NOT ELSEWHERE CLASSIFIED (13) Anemia Assessment/Plan: GI workup in progress. Await records of coronary workup prior to giving cardiac clearance for possible GI procedure(s). Code(s): D64.9 - ANEMIA, UNSPECIFIED
--- NOTE | 2019-08-14 14:03 | PN ---
Physical Exam: SUBJECTIVE: Overnight events noted, fall events noted. Patient seen and examined at the bedside. Patient upset about her pain. She notes that she continues to have lower extremity pain. She denies fever, chills, cp, sob, abd pain, n/v/c/d, lower extremity edema, cough, headaches, dizziness, lightheadedness. OBJECTIVE: Vital Signs Period Temp Pulse Resp BP Sys/Vilchis Pulse Ox Last 24 Hr 97.8 F-98.8 F 67-95 20-20 100-147/58-90 GENERAL: The patient is awake, alert, and fully oriented, in noted acute distress regarding the pain in her legs. HEAD: Normal with no signs of trauma. EYES: PERRL, extraocular movements intact, sclera anicteric, conjunctiva clear. ENT: Oropharynx clear without exudates, moist mucous membranes. NECK: Trachea midline, no noted JVD or hepatojugular reflex. LUNGS: Decreased breath sounds bilaterally, no noted wheezes or crackles, no accessory muscle use. HEART: Regular rate and rhythm, S1, S2 without murmur, rub. ABDOMEN: Soft, nontender, nondistended, normoactive bowel sounds, no guarding, no rebound, no masses. EXTREMITIES: 2+ pulses, warm, well-perfused, trace peripheral edema. NEUROLOGICAL: Cranial nerves II through XII grossly intact. 5/5 muscle strength bilaterally upper and lower extremities. PSYCH: Upset mood. SKIN: Warm, dry, normal turgor, no rashes or lesions noted. Laboratory Results - last 24 hr 08/13/19 08/13/19 08/14/19 09:20 09:30 05:50 WBC 8.5 RBC 3.86 Hgb 9.6 L Hct 30.4 L MCV 78.6 L MCH 25.0 L MCHC 31.7 L RDW 19.1 H Plt Count 441 H D MPV 7.4 L Absolute Neuts (auto) 4.9 Neutrophils % 57.5 D Lymphocytes % 29.6 D Monocytes % 9.9 Eosinophils % 2.2 D Basophils % 0.8 Nucleated RBC % 0 Sodium Potassium Chloride Carbon Dioxide Anion Gap BUN Creatinine Est GFR (CKD-EPI)AfAm Est GFR (CKD-EPI)NonAf Random Glucose Hemoglobin A1c % 5.5 Calcium Magnesium Iron 26 L TIBC 507 H Iron Saturation 5 L Unsaturated IBC 481 H Ferritin 25.2 08/14/19 05:50 WBC RBC Hgb Hct MCV MCH MCHC RDW Plt Count MPV Absolute Neuts (auto) Neutrophils % Lymphocytes % Monocytes % Eosinophils % Basophils % Nucleated RBC % Sodium 137 Potassium 3.8 Chloride 103 Carbon Dioxide 24 Anion Gap 10 BUN 25.1 H Creatinine 1.5 H Est GFR (CKD-EPI)AfAm 43.74 Est GFR (CKD-EPI)NonAf 37.74 Random Glucose 107 H Hemoglobin A1c % Calcium 9.2 Magnesium 2.1 Iron TIBC Iron Saturation Unsaturated IBC Ferritin Active Medications Generic Name Dose Route Start Last Admin Trade Name Freq PRN Reason Stop Dose Admin Acetaminophen 325 mg 08/14/19 08:22 Tylenol - PO Q6H PRN PAIN LEVEL 6-10 Apixaban 5 mg 08/13/19 10:00 08/14/19 10:35 Eliquis - PO 5 mg BID EMILI Administration Atorvastatin Calcium 40 mg 08/13/19 22:00 08/13/19 21:26 Lipitor - PO 40 mg HS EMILI Administration Carvedilol 25 mg 08/13/19 10:00 08/14/19 10:34 Coreg - PO 25 mg BID [facility] Administration Cyclobenzaprine HCl 10 mg 08/13/19 10:00 08/14/19 10:35 Flexeril - PO 10 mg DAILY [facility] Administration Docusate Sodium 100 mg 08/13/19 06:00 08/14/19 06:15 Colace - PO Not Given TID EM[facility]I Famotidine 20 mg 08/13/19 10:00 08/14/19 10:36 Pepcid - PO 20 mg BID EM[facility]I Administration Ferrous Sulfate 325 mg 08/13/19 10:00 08/14/19 10:35 Feosol - PO 325 mg DAILY [facility] Administration Furosemide 40 mg 08/15/19 10:00 Lasix - PO DAILY [facility] Hydralazine HCl 10 mg 08/13/19 20:30 08/14/19 10:34 Apresoline - PO 10 mg BID [facility] Administration Isosorbide Mononitrate 30 mg 08/13/19 20:15 08/14/19 10:34 Imdur - PO 30 mg DAILY [facility] Administration Lidocaine 1 patch 08/13/19 10:00 08/14/19 10:36 Lidoderm Patch - TP 1 patch DAILY [facility] Administration Lisinopril 10 mg 08/14/19 10:00 08/14/19 10:35 Prinivil PO 10 mg DAILY [facility] Administration Miscellaneous 1 each 08/13/19 22:00 08/13/19 22:00 Lidoderm Patch Removal MC 1 each DAILY@2200 [facility] Administration Oxycodone HCl 10 mg 08/13/19 10:00 08/14/19 09:19 Oxycontin - PO 10 mg BID [facility] Administration Oxycodone HCl 10 mg 08/14/19 08:21 08/14/19 10:35 Roxicodone - PO 10 mg Q6H PRN Administration PAIN LEVEL 6-10 Pantoprazole Sodium 40 mg 08/13/19 10:00 08/14/19 10:35 Protonix - PO 40 mg DAILY [facility] Administration Polyethylene Glycol 17 gm 08/13/19 10:00 08/14/19 10:36 Miralax (For Daily Use) - PO 17 gm DAILY [facility] Administration Senna 2 tab 08/13/19 22:00 08/13/19 21:25 Senna - PO 2 tab HS [facility] Administration Spironolactone 25 mg 08/13/19 10:00 08/14/19 10:34 Aldactone - PO 25 mg DAILY [facility] Administration Venlafaxine HCl 75 mg 08/14/19 08:00 08/14/19 13:41 Effexor - PO 75 mg TIDCM [facility] Administration Zolpidem Tartrate 10 mg 08/13/19 22:00 08/13/19 23:08 Ambien - PO 10 mg HS PRN Administration INSOMNIA ASSESSMENT/PLAN: Casey Greenwood is a 58 year old female with a past medical history of CHF, PE (on eliquis), HTN, HLD, chronic LLE pain, GERD admitted for shortness of breath. Shortness of breath - resolving - previous echo (06/25): EF of 25%, will discuss if necessary for lifevest - CTA: no evidence of PE, with noted pericardial effusion - echo noting severely reduced LV function, sever global hypokinesis of left ventricle, mild pericardial effusion, mild tricuspid regurg, mild to mod mitral regurg - Duplex: no evidence of DVT - no clinical signs of CHF - Lasix 40mg daily, home dose as confirmed with previous cardiology notes - Strict I&O's, daily weights, restricted fluid intake - Tele monitoring - Cardiology consultation, recs appreciated - Respiratory consultation, recs appreciated, sleep apnea screening, will require full sleep study outpatient Microcytic anemia - iron studies noting iron deficiency anemia - continue home ferrous sulfate - will need outpatient GI followup Hypetensive urgency - Will cont pt's home meds: Coreg 25mg BID, Aldactone 25mg daily - lisinopril to 10mg daily - Discussed importance of weight loss, salt restriction, and exercise - EKG with noted T wave inversions present on previous EKG HLD - elevated chol, LDL - Lipitor 40mg Hx of PE - Cont home eliquis 5mg BID Hx of CHF/Dilated cardiomyopathy - on coreg, aldactone, lisinopril - as per obtained records is considered for ICD per her planning consultant, has had cardiac cath, records from [facility] pending - has lifevest and non-compliant with it Chronic LLE pain - Cont Oxy 10mg bid, Flexeril 10mg, Neurontin 400mg Q8H, lidoderm patch, Percocet 10-325mg q6h prn as confirmed with pharmacy and ISTOP - L spine MRI - attempted to contact pts pain management doctor to discuss pain management regimen, unsuccesful, will reattempt again Morbid Obestity - may have component of obesity hypoventilation syndrome - pulmonology consultation - morning ABG DVT ppx - On eliquis FEN - No standing fluids, caution with fluid in setting of CHF - continue to monitor electrolytes and replete as necessary - Salt-controlled diet, consult training and development professional Dispo - continue to monitor on telemetry Visit type - Emergency Visit Emergency Visit: Yes ED Registration Date: 08/13/19 Care time: The patient presented to the Emergency Department on the above date and was hospitalized for further evaluation of their emergent condition. - New Patient This patient is new to me today: No - Critical Care Critical Care patient: No
--- NOTE | 2019-08-14 14:24 | ECHO ---
Name: CHARLIE URIAS L Exam:Adult Echocardiogram Study Date: 08/14/2019 09:45 AM Age: 58 yrs Height: 66 in Weight: 265 lb BSA: 2.3 m2 MMode/2D Measurements & Calculations IVSd: 1.1 cm Ao root diam: 2.9 cm LVIDd: 5.4 cm LA dimension: 4.1 cm LVIDs: 4.5 cm ACS: 2.1 cm LVPWd: 1.4 cm EDV(Teich): 142.7 ml LVOT diam: 2.0 cm ESV(Teich): 90.1 ml RV S Jv: 20.1 cm/sec Doppler Measurements & Calculations MV E max jv: 52.8 cm/sec Ao V2 max: 160.6 cm/sec MV A max jv: 109.7 cm/sec Ao max P.7 mmHg MV E/A: 0.48 Ao V2 mean: 121.3 cm/sec MV dec time: 0.17 sec Ao mean P.7 mmHg Ao V2 VTI: 29.9 cm AARON(I,D): 1.2 cm2 AARON(V,D): 1.3 cm2 LV V1 max P.0 mmHg MR max jv: 371.0 cm/sec LV V1 mean P.2 mmHg MR max P.1 mmHg LV V1 max: 69.9 cm/sec LV V1 mean: 54.0 cm/sec LV V1 VTI: 12.0 cm SV(LVOT): 36.9 ml TR max jv: 200.4 cm/sec TR max P.1 mmHg PA V2 max: 77.5 cm/sec PI end-d jv: 133.8 cm/sec PA max P.4 mmHg Med Peak E' Jv: 2.8 cm/sec Med E/e': 18.7 Lat Peak E' Jv: 4.1 cm/sec Lat E/e': 12.9 Procedure A two-dimensional transthoracic echocardiogram with color flow and Doppler was performed. Left Ventricle The left ventricle is grossly normal size. Left ventricular systolic function is severely reduced. Th ere is severe global hypokinesis of the left ventricle. Regional wall motion abnormalities cannot be exclude d due to limited visualization. Right Ventricle The right ventricle is not well visualized. Atria The left atrium is mildly dilated. The right atrium is mildly dilated. Mitral Valve There is mild mitral valve thickening. There is no mitral valve stenosis. There is mild to moderate m itral regurgitation. Tricuspid Valve The tricuspid valve is not well visualized. There is no tricuspid stenosis. There is mild tricuspid regurgitation. Right ventricular systolic pressure is normal. Aortic Valve The aortic valve is not well visualized. No hemodynamically significant valvular aortic stenosis. No aortic regurgitation is present. Pulmonic Valve The pulmonic valve is not well visualized. Great Vessels The aortic root is normal size. Pericardium/Pleura There is a mild pericardial effusion. Interpretation Summary The left ventricle is grossly normal size. Left ventricular systolic function is severely reduced. There is severe global hypokinesis of the left ventricle. Regional wall motion abnormalities cannot be excluded due to limited visualization. There is a mild pericardial effusion. Right ventricular systolic pressure is normal. There is mild tricuspid regurgitation. There is mild to moderate mitral regurgitation. MD Hector Kennedy 08/14/2019 02:23 PM
--- NOTE | 2019-08-14 14:28 | PN ---
Progress Note (short form) - Note Progress Note: PULMONARY Sleep screen showing AHI 61.5. Vital Signs Period Temp Pulse Resp BP Sys/Vilchis Pulse Ox Last 24 Hr 97.8 F-98.8 F 67-95 20-20 100-147/58-90 Gen: NAD at rest Heart: RRR Lung: decreased breath sounds at the bases Abd: soft, nontender Ext: + edema CBC, BMP 08/14/19 05:50 08/14/19 05:50 Active Medications Acetaminophen (Tylenol -) 325 mg PO Q6H PRN PRN Reason: PAIN LEVEL 6-10 Apixaban (Eliquis -) 5 mg PO BID [facility] Last Admin: 08/14/19 10:35 Dose: 5 mg Atorvastatin Calcium (Lipitor -) 40 mg PO HS [facility] Last Admin: 08/13/19 21:26 Dose: 40 mg Carvedilol (Coreg -) 25 mg PO BID [facility] Last Admin: 08/14/19 10:34 Dose: 25 mg Cyclobenzaprine HCl (Flexeril -) 10 mg PO DAILY [facility] Last Admin: 08/14/19 10:35 Dose: 10 mg Docusate Sodium (Colace -) 100 mg PO TID [facility] Last Admin: 08/14/19 06:15 Dose: Not Given Famotidine (Pepcid -) 20 mg PO BID [facility] Last Admin: 08/14/19 10:36 Dose: 20 mg Ferrous Sulfate (Feosol -) 325 mg PO DAILY [facility] Last Admin: 08/14/19 10:35 Dose: 325 mg Furosemide (Lasix -) 40 mg PO DAILY [facility] Hydralazine HCl (Apresoline -) 10 mg PO BID [facility] Last Admin: 08/14/19 10:34 Dose: 10 mg Isosorbide Mononitrate (Imdur -) 30 mg PO DAILY [facility] Last Admin: 08/14/19 10:34 Dose: 30 mg Lidocaine (Lidoderm Patch -) 1 patch TP DAILY [facility] Last Admin: 08/14/19 10:36 Dose: 1 patch Lisinopril (Prinivil) 10 mg PO DAILY [facility] Last Admin: 08/14/19 10:35 Dose: 10 mg Miscellaneous (Lidoderm Patch Removal) 1 each MC DAILY@2200 [facility] Last Admin: 08/13/19 22:00 Dose: 1 each Oxycodone HCl (Oxycontin -) 10 mg PO BID [facility] Last Admin: 08/14/19 09:19 Dose: 10 mg Oxycodone HCl (Roxicodone -) 10 mg PO Q6H PRN PRN Reason: PAIN LEVEL 6-10 Last Admin: 08/14/19 10:35 Dose: 10 mg Pantoprazole Sodium (Protonix -) 40 mg PO DAILY [facility] Last Admin: 08/14/19 10:35 Dose: 40 mg Polyethylene Glycol (Miralax (For Daily Use) -) 17 gm PO DAILY [facility] Last Admin: 08/14/19 10:36 Dose: 17 gm Senna (Senna -) 2 tab PO HS [facility] Last Admin: 08/13/19 21:25 Dose: 2 tab Spironolactone (Aldactone -) 25 mg PO DAILY [facility] Last Admin: 08/14/19 10:34 Dose: 25 mg Venlafaxine HCl (Effexor -) 75 mg PO TIDCM [facility] Last Admin: 08/14/19 13:41 Dose: 75 mg Zolpidem Tartrate (Ambien -) 10 mg PO HS PRN PRN Reason: INSOMNIA Last Admin: 08/13/19 23:08 Dose: 10 mg A/P Acute on Chronic Systolic Heart Failure h/o PE Suspect Obstructive Sleep Apnea HTN Hyperlipidemia Morbid Obesity Noncompliance - continue lasix - monitor urine output, creatinine - daily weights - encourage compliance with diet and medications - O2 to keep Spo2 >90% - continue anticoagulation - will need formal NPSG as outpt
--- NOTE | 2019-08-14 15:29 | PN ---
Progress Note (short form) - Note Progress Note: Pt seen/examined at bedside, sitting up, feeling better though still dyspneic mostly on exertion. Reports occasional hearburn. Denies abdominal pain or blood in stools. No prior EGD or colonoscopy. On examination: Pt appears comfortable Abd soft, nt, nd Labs reviewed. CBC, BMP 08/14/19 05:50 08/14/19 05:50 Assessment/plan: 58yo female h/o CAD, CHF, PE on eliquis presenting with shortness of breath. Iron deficiency anemia noted with no overt bleeding. No prior EGD or colonoscopy. -As previously noted would recommend EGD/colonoscopy however pt would require further optimization from a cardiorespiratory standpoint prior to endoscopy. Pending course this can pursued prior to discharge vs outpt and determination if eliquis can be safely held (would prefer heparin gtt that can be held 4-6hrs pre procedure) -Continue PPI daily
[2019-08-14 16:32] VITALS: BMI 42.9
[2019-08-14] MEDS: SENNOSIDES 8.6MG TABLET (FP) PO SCH (21:07)
[2019-08-14] MEDS: ATORVASTATIN CA 40 MG TABLET (FP) PO SCH (21:08)
[2019-08-14] MEDS: LIDOCAINE PATCH REMOVAL MC SCH (21:18)
[2019-08-14] MEDS: ZOLPIDEM TARTRATE 5 MG TABLET PO PRN (22:51)
[2019-08-15] MEDS: DOCUSATE SODIUM 100 MG CAPSULE (FP) PO SCH ×3 (06:18→22:41)
[2019-08-15] MEDS: ACETAMINOPHEN 325 MG TABLET (FP) PO PRN ×3 (06:18→20:12)
[2019-08-15] MEDS: oxyCODONE HCL 5 MG TABLET PO PRN ×3 (06:18→20:10)
[2019-08-15 06:25] LABS: ARTERIAL BLD GAS O2 SATURATION 96.7 % (95-98); ARTERIAL BLOOD GAS PCO2 38.2 mmHg (35-45); ARTERIAL BLOOD GAS PO2 87.2 mmHg (80-100)
[2019-08-15 06:26] LABS: ARTERIAL BLOOD GAS BASE EXCESS -1.2 meq/l (-2-2)
[2019-08-15 06:34] LABS: ALLENS TEST POSITIVE
[2019-08-15 07:38] LABS: BASO % 0.7 % (0-2.0); EOS % 3.5 % (0-4.5); HEMATOCRIT 31.3 % (32.4-45.2); LYMPH % 35.9 % (8-40); MCH 25.4 pg (25.7-33.7); MEAN CELL VOLUME 79.6 fl (80-96); MEAN PLT VOLUME 7.4 fl (7.5-11.1); MONO % 9.5 % (3.8-10.2); NEUT % 50.4 % (42.8-82.8); PLATELET COUNT 442 K/MM3 (134-434); RBC 3.94 M/mm3 (3.60-5.2); RDW 18.9 % (11.6-15.6); WHITE BLOOD COUNT 9.9 K/mm3 (4.0-10.0)
[2019-08-15] MEDS ORDERED: PT OWN MED DRAWER 7, Y5N ONE ×3 (08:08→17:22)
[2019-08-15 08:13] LABS: BLOOD UREA NITROGEN 39.8 mg/dL (7-18); MAGNESIUM 2.4 mg/dL (1.8-2.4); POTASSIUM 4.1 mmol/L (3.5-5.1)
[2019-08-15] MEDS ORDERED: FUROSEMIDE 40 MG/4 ML INJECTABLE VIAL IVPUSH ONE (09:30)
--- NOTE | 2019-08-15 09:34 | PN ---
Teaching Attending Note Name of Resident: Anthony Dixon ATTENDING PHYSICIAN STATEMENT I saw and evaluated the patient. I reviewed the resident's note and discussed the case with the resident. I agree with the resident's findings and plan as documented. Seen and examined; please see resident note for further historical information. I personally verified all [place] historical information and exam findings. Personally interpreted all imaging and diagnostics and reviewed appropriate consults. I reviewed all labs and vital signs as per resident note and EMR as documented. I agree with the above assessment and plan unless supplemented by myself in the following. Per gastroenterology, inpatient versus outpatient endoscopy, likely depending on determination if Eliquis can be safely held as they would prefer heparin drip that can be held 4 to 6 hours preprocedure. Patient continues on daily PPI with no noted bleeding. We spoke with the patient at length yesterday. 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 She has very poor medical literacy and states that she recently learned from the dietitian she needs to improve her heart problems with eating right, as she puts it, but I fear that she has very restricted insight. We spoke at length about her pain medication yesterday and we checked I stop which reveals that she is on 15 mg twice daily of long-acting OxyContin with every 6 hours breakthrough. She is also on zolpidem which she does not normally take, we will plan to cut back on the dose of this. AHI 61.5 10 item review of systems was completed and is negative aside from history of present illness Objective: VS, labs, imaging reviewed NAD, AAO, resting comfortably in bed. RRR s1/2 no mgr Normal muscle tone, moves all 5 extremities with normal apparent strength Neck is supple, trachea midline, no shayla LN Lungs CTAB with sym expansion NT ND +BS no shayla organomegaly CN2-12 wnl; no FND NC AT EOMI PERRLA Normal mood, appropriate behavior, euthymic affect No skin breakdown or rashes noted A/P: Patient with a history of CHF secondary to ?Dilated CMyo, hypertension, cholelithiasis, GERD, hypertension Problems include: -Shortness of breath secondary to CHF exacerbation (NYHA-III baseline symptoms, Severe struuctural disease should actually be on life vest but is noncompliant) -Nonobstructive CAD (Pending report transmission; complicated as she forgers what [facility] she was at) -Fall -Chronic radicular lower back pain with neuropathy (No red flag exam signs or symptoms. Checking ISTOP; has been consistently requesting narcotics [per CV consultation: "patient has consistently asked for narcotic pain management, she was advised that due to history of noncompliance and enrollment in pain management on an outpatient basis this will be discussed with the admitting team ". Checking L-spine MRI given >3 months of symptoms with +radiculopathy and sx persisting despite treatment. If needed will consult neurosurgery] -Degenerative Joint Disease of the R-shoulder (noted on XR) -Hx DM -Hypertensive urgency -Microcytic anemia -History of pulmonary embolism on Xarelto, continue Xarelto, no PE seen per radiology -History of hyperlipidemia -History of uncontrolled hypertension, as per above -Demyelination noted on CT (seen last admission with MRI done and discussed with Dr. Pierre at that time; he states that the process seen was likely secondary to microvascular changes. Given persisting pain and fall will reconsult to see if he wants any further workup vs. OP followup) -Paraesophageal Hiatal Hernia (Seen on CTA Chest) -Morbid obesity (BMI 43) -History of Noncompliance Full Code
[2019-08-15] MEDS ORDERED: FUROSEMIDE 40 MG TABLET (FP) PO SCH (10:00)
[2019-08-15] MEDS: APIXABAN 5 MG TABLET PO SCH ×2 (10:16→22:41)
[2019-08-15] MEDS: PANTOPRAZOLE 40 MG TABLET (FP) PO SCH (10:16)
[2019-08-15] MEDS: FAMOTIDINE 20 MG TABLET PO SCH ×2 (10:17→22:43)
[2019-08-15] MEDS: oxyCODONE HCL 10 MG SUSTAINED ACTING TABLET PO SCH ×2 (10:17→22:42)
[2019-08-15] MEDS: hydrALAZINE HCL 10 MG TABLET PO SCH ×2 (10:19→22:44)
[2019-08-15] MEDS: CYCLOBENZAPRINE HCL 10 MG TABLET (FP) PO SCH (10:19)
[2019-08-15] MEDS: VENLAFAXINE HCL 75 MG TABLET PO SCH ×3 (10:19→17:24)
[2019-08-15] MEDS: CARVEDILOL 25 MG TABLET (FP) PO SCH ×2 (10:19→22:42)
[2019-08-15] MEDS: FERROUS SO4 325 MG TABLET (FP) PO SCH (10:19)
[2019-08-15] MEDS: LIDOCAINE 5% TOPICAL PATCH TP SCH (10:22)
--- NOTE | 2019-08-15 11:45 | PN ---
Progress Note (short form) - Note Progress Note: Breathing feels better but not at baseline. No acute events overnight. Sleep screen: AHI 61.5. Intake & Output 08/12/19 08/13/19 08/14/19 08/15/19 23:59 23:59 23:59 23:59 Intake Total 480 400 Balance 480 400 Weight 265 lb 15.803 oz 266 lb 4 oz 266 lb 269 lb 6.4 oz Last Vital Signs Temp Pulse Resp BP Pulse Ox 97.9 F 95 H 20 101/65 100 08/15/19 05:48 08/15/19 05:48 08/15/19 05:48 08/15/19 05:48 08/13/19 06:25 Active Medications Acetaminophen (Tylenol -) 325 mg PO Q6H PRN PRN Reason: PAIN LEVEL 6-10 Last Admin: 08/15/19 06:18 Dose: 325 mg Apixaban (Eliquis -) 5 mg PO BID [facility] Last Admin: 08/15/19 10:16 Dose: 5 mg Atorvastatin Calcium (Lipitor -) 40 mg PO HS [facility] Last Admin: 08/14/19 21:08 Dose: 40 mg Carvedilol (Coreg -) 25 mg PO BID [facility] Last Admin: 08/15/19 10:19 Dose: 25 mg Cyclobenzaprine HCl (Flexeril -) 10 mg PO DAILY [facility] Last Admin: 08/15/19 10:19 Dose: 10 mg Docusate Sodium (Colace -) 100 mg PO TID [facility] Last Admin: 08/15/19 06:18 Dose: 100 mg Famotidine (Pepcid -) 20 mg PO BID [facility] Last Admin: 08/15/19 10:17 Dose: 20 mg Ferrous Sulfate (Feosol -) 325 mg PO DAILY [facility] Last Admin: 08/15/19 10:19 Dose: 325 mg Furosemide (Lasix -) 40 mg PO DAILY [facility] Hydralazine HCl (Apresoline -) 10 mg PO BID [facility] Last Admin: 08/15/19 10:19 Dose: Not Given Isosorbide Mononitrate (Imdur -) 30 mg PO DAILY [facility] Last Admin: 08/14/19 10:34 Dose: 30 mg Lidocaine (Lidoderm Patch -) 1 patch TP DAILY [facility] Last Admin: 08/15/19 10:22 Dose: 1 patch Lisinopril (Prinivil) 10 mg PO DAILY [facility] Last Admin: 08/14/19 10:35 Dose: 10 mg Miscellaneous (Lidoderm Patch Removal) 1 each MC DAILY@2200 [facility] Last Admin: 08/14/19 21:18 Dose: 1 each Oxycodone HCl (Oxycontin -) 10 mg PO BID [facility] Last Admin: 08/15/19 10:17 Dose: 10 mg Oxycodone HCl (Roxicodone -) 10 mg PO Q6H PRN PRN Reason: PAIN LEVEL 6-10 Last Admin: 08/15/19 06:18 Dose: 10 mg Pantoprazole Sodium (Protonix -) 40 mg PO DAILY [facility] Last Admin: 08/15/19 10:16 Dose: 40 mg Polyethylene Glycol (Miralax (For Daily Use) -) 17 gm PO DAILY [facility] Last Admin: 08/14/19 10:36 Dose: 17 gm Senna (Senna -) 2 tab PO HS [facility] Last Admin: 08/14/19 21:07 Dose: 2 tab Spironolactone (Aldactone -) 25 mg PO DAILY [facility] Last Admin: 08/14/19 10:34 Dose: 25 mg Venlafaxine HCl (Effexor -) 75 mg PO TIDCM [facility] Last Admin: 08/15/19 10:19 Dose: 75 mg Zolpidem Tartrate (Ambien -) 10 mg PO HS PRN PRN Reason: INSOMNIA Last Admin: 08/14/19 22:51 Dose: 10 mg Gen: NAD at rest Heart: RRR Lung: decreased breath sounds at the bases Abd: soft, nontender Ext: + edema Laboratory Results - last 24 hr 08/15/19 08/15/19 08/15/19 06:10 06:10 06:15 WBC 9.9 RBC 3.94 Hgb 10.0 L Hct 31.3 L MCV 79.6 L MCH 25.4 L MCHC 32.0 RDW 18.9 H Plt Count 442 H MPV 7.4 L Absolute Neuts (auto) 5.0 Neutrophils % 50.4 Lymphocytes % 35.9 D Monocytes % 9.5 Eosinophils % 3.5 Basophils % 0.7 Nucleated RBC % 0 Puncture Site Left radial ABG pH 7.40 ABG pCO2 at Pt Temp 38.2 ABG pO2 at Pt Temp 87.2 ABG HCO3 22.9 ABG O2 Sat (Measured) 96.7 ABG O2 Content 13.2 ABG Base Excess -1.2 Gopi Test Positive O2 Delivery Device Room air Oxygen Flow Rate No Sodium 137 Potassium 4.1 Chloride 102 Carbon Dioxide 26 Anion Gap 8 BUN 39.8 H Creatinine 2.0 H Est GFR (CKD-EPI)AfAm 30.89 Est GFR (CKD-EPI)NonAf 26.65 Random Glucose 110 H Calcium 9.0 Magnesium 2.4 A/P Acute on Chronic Systolic Heart Failure h/o PE Suspect Obstructive Sleep Apnea HTN Hyperlipidemia Morbid Obesity Noncompliance - Lasix - monitor urine output, creatinine - daily weights - encourage compliance with diet and medications - O2 to keep Spo2 >90% - continue anticoagulation - will need formal NPSG as outpatient Dr Peterson
--- NOTE | 2019-08-15 12:04 | PN ---
Progress Note, Physician Chief Complaint: Pt A&Ox3; sitting up at bedside; feels weak after walking the hallway with therapist's assistance. History of Present Illness: 58-year-old black woman with history of dilated cardiomyopathy (severe systolic LV dysfunction),?nonobstructive CAD (pt states she had a coronary angiogram at ? [facility] approximately 6 months ago), morbid obesity, HTN, hyperlipidemia, iron -deficiency anemia, "borderline" DM, s/p pulmonary embolism, noncompliance with recent ED visit/elopement, now with increasing shortness of breath and chronic lower back and LE pain. CT shows no obvious new pulmonary embolism We will admit to medical service for further management Of note patient has consistently asked for narcotic pain management, she was advised that due to history of noncompliance and enrollment in pain management on an outpatient basis this will be discussed with the admitting team Pt's director of real estate: Dr. Andres Newman - Current Medication List Current Medications: Active Medications Acetaminophen (Tylenol -) 325 mg PO Q6H PRN PRN Reason: PAIN LEVEL 6-10 Last Admin: 08/15/19 06:18 Dose: 325 mg Apixaban (Eliquis -) 5 mg PO BID [facility] Last Admin: 08/15/19 10:16 Dose: 5 mg Atorvastatin Calcium (Lipitor -) 40 mg PO HS [facility] Last Admin: 08/14/19 21:08 Dose: 40 mg Carvedilol (Coreg -) 25 mg PO BID [facility] Last Admin: 08/15/19 10:19 Dose: 25 mg Cyclobenzaprine HCl (Flexeril -) 10 mg PO DAILY [facility] Last Admin: 08/15/19 10:19 Dose: 10 mg Docusate Sodium (Colace -) 100 mg PO TID [facility] Last Admin: 08/15/19 06:18 Dose: 100 mg Famotidine (Pepcid -) 20 mg PO BID [facility] Last Admin: 08/15/19 10:17 Dose: 20 mg Ferrous Sulfate (Feosol -) 325 mg PO DAILY [facility] Last Admin: 08/15/19 10:19 Dose: 325 mg Furosemide (Lasix -) 40 mg PO DAILY [facility] Hydralazine HCl (Apresoline -) 10 mg PO BID [facility] Last Admin: 08/15/19 10:19 Dose: Not Given Isosorbide Mononitrate (Imdur -) 30 mg PO DAILY [facility] Last Admin: 08/14/19 10:34 Dose: 30 mg Lidocaine (Lidoderm Patch -) 1 patch TP DAILY [facility] Last Admin: 08/15/19 10:22 Dose: 1 patch Lisinopril (Prinivil) 10 mg PO DAILY [facility] Last Admin: 08/14/19 10:35 Dose: 10 mg Miscellaneous (Lidoderm Patch Removal) 1 each MC DAILY@2200 [facility] Last Admin: 08/14/19 21:18 Dose: 1 each Oxycodone HCl (Oxycontin -) 10 mg PO BID [facility] Last Admin: 08/15/19 10:17 Dose: 10 mg Oxycodone HCl (Roxicodone -) 10 mg PO Q6H PRN PRN Reason: PAIN LEVEL 6-10 Last Admin: 08/15/19 06:18 Dose: 10 mg Pantoprazole Sodium (Protonix -) 40 mg PO DAILY [facility] Last Admin: 08/15/19 10:16 Dose: 40 mg Polyethylene Glycol (Miralax (For Daily Use) -) 17 gm PO DAILY [facility] Last Admin: 08/14/19 10:36 Dose: 17 gm Senna (Senna -) 2 tab PO HS [facility] Last Admin: 08/14/19 21:07 Dose: 2 tab Spironolactone (Aldactone -) 25 mg PO DAILY [facility] Last Admin: 08/14/19 10:34 Dose: 25 mg Venlafaxine HCl (Effexor -) 75 mg PO TIDCM [facility] Last Admin: 08/15/19 10:19 Dose: 75 mg Zolpidem Tartrate (Ambien -) 10 mg PO HS PRN PRN Reason: INSOMNIA Last Admin: 08/14/19 22:51 Dose: 10 mg - Objective Vital Signs: Vital Signs Temperature 97.9 F 08/15/19 05:48 Pulse Rate 95 H 08/15/19 05:48 Respiratory Rate 20 08/15/19 05:48 Blood Pressure 101/65 08/15/19 05:48 O2 Sat by Pulse Oximetry (%) 100 08/13/19 06:25 Constitutional: Yes: Anxious, Obese Eyes: Yes: WNL HENT: Yes: WNL Neck: Yes: WNL Cardiovascular: Yes: Pulse Irregular, S1, S2 Respiratory: Yes: WNL Gastrointestinal: Yes: Soft, Abdomen, Obese ...Rectal Exam: Yes: Deferred Genitourinary: No: Anuria Breast(s): Yes: WNL Musculoskeletal: Yes: Back Pain, Joint Stiffness, Muscle Pain, Muscle Weakness Extremities: Yes: Cool Edema: No Peripheral Pulses WNL: Yes Integumentary: Yes: WNL Psychiatric: Yes: Alert, Oriented, Other (addictions) Labs: CBC, BMP 08/15/19 06:10 08/15/19 06:10 Abnormal Lab Results 08/15/19 08/15/19 06:10 06:10 Hgb 10.0 L Hct 31.3 L MCV 79.6 L MCH 25.4 L RDW 18.9 H Plt Count 442 H MPV 7.4 L BUN 39.8 H Creatinine 2.0 H Random Glucose 110 H - ....Imaging Chest X-ray: Image Reviewed EKG: Image Reviewed Problem List - Problems (1) Systolic CHF Assessment/Plan: Continue carvedilol, sprionolactone, lisinopril (increased the latter to 10 mg daily); added hydralazine + Imdur (systolic CHF; HTN). Stop furosemide (no signs of acute CHF; rising BUN and Cr). I discussed pt with her director of real estate, Dr. Andres Newman. He plans to start Entresto as outpatient if her insurance allows (and assuming BUN/Cr and electrolytes also fall withn range). She has been noncompliant to office visits in the past, and changed director of real estate at one point, then returned to him. He believes there is CAD; awaits record of most recent angiogram (?[facility] 6 months ago).If ICD placement was discussed with her in the past; she did not agree to it at the time. He will discuss it again with her (she has an appointment scheduled with him for tomorrow; if she does not make this, another appointment may be scheduled for next week). From a cardiac standpoint, pt may be followed as an outpatient. If GI issues are stable, would continue workup for anemia as outpatient. If felt necessary to have EGD/colonoscopy this admission, there are no absolute contraindications to do so from a cardiac standpoint. Code(s): I50.20 - UNSPECIFIED SYSTOLIC (CONGESTIVE) HEART FAILURE (2) DM2 (diabetes mellitus, type 2) Assessment/Plan: Consider SGLT-2 inhibitor. Code(s): E11.9 - TYPE 2 DIABETES MELLITUS WITHOUT COMPLICATIONS Qualifiers: Diabetes mellitus group home insulin use: unspecified termite technician insulin use status Diabetes mellitus complication status: with other specified complication Qualified Code(s): E11.69 - Type 2 diabetes mellitus with other specified complication (3) Calculus of gallbladder without cholecystitis without obstruction Code(s): K80.20 - CALCULUS OF GALLBLADDER W/O CHOLECYSTITIS W/O OBSTRUCTION (4) Chronic pain Assessment/Plan: On multiple pain medications; she says she eventually wants to come off all of them. She would benefit from a painter and decorator. Code(s): G89.29 - OTHER CHRONIC PAIN (5) Eloped from emergency department Code(s): Z53.21 - PROC/TRTMT NOT CRD OUT D/T PT LV BEF SEEN BY [facility] (6) History of pulmonary embolism Assessment/Plan: On apixaban. F/u records of event(s). Code(s): Z86.711 - PERSONAL HISTORY OF PULMONARY EMBOLISM (7) Depression Assessment/Plan: On Venlafaxine (Effexor). Code(s): F32.9 - MAJOR DEPRESSIVE DISORDER, SINGLE EPISODE, UNSPECIFIED (8) Essential hypertension Assessment/Plan: On carvedilol, lisinopril (dose increased), and spironolactone. Added hydralazine + Imdur. Code(s): I10 - ESSENTIAL (PRIMARY) HYPERTENSION (9) Morbid obesity Code(s): E66.01 - MORBID (SEVERE) OBESITY DUE TO EXCESS CALORIES (10) Opioid dependence with withdrawal Assessment/Plan: pain management team/MD would be beneficial. Code(s): F11.23 - OPIOID DEPENDENCE WITH WITHDRAWAL (11) [place] cardiac risk >20% in next 10 years Assessment/Plan: coronary artery evaluation was apparently done (coronary angiogram 2019); f/u findings, which pt reports did not require PCI. F/u lipids. Code(s): Z91.89 - OTH PERSONAL RISK FACTORS, NOT ELSEWHERE CLASSIFIED (12) Anemia Assessment/Plan: GI workup in progress. See "systolic CHF" for cardiac recommendations regarding GI procedures. Code(s): D64.9 - ANEMIA, UNSPECIFIED (13) Sleep apnea Assessment/Plan: + sleep studies this admission. F/u as outpatient for formal workup, Rx per disability case manager. Code(s): G47.30 - SLEEP APNEA, UNSPECIFIED
[2019-08-15] MEDS: POLYETHYLENE GLYCOL 3350 119 GM BTL PO SCH (12:40)
[2019-08-15] MEDS: ISOSORBIDE MONONITRATE 30 MG TAB.SR.24H (FP) PO SCH (12:40)
[2019-08-15] MEDS: SPIRONOLACTONE 25 MG TABLET (FP) PO SCH (12:40)
[2019-08-15] MEDS: LISINOPRIL 10 MG TABLET (FP) PO SCH (15:19)
--- NOTE | 2019-08-15 17:03 | CONSULT ---
Consultation: REQUESTING PROVIDER: CONSULT REQUEST: We have been asked to medically evaluate this patient for TEDDY. HISTORY OF PRESENT ILLNESS: Pt is a 58 y/o F with PMH with PMH of CHF, PE (on eliquis), HTN, HLD, chronic LLE pain, GERD who presents with SOB for 4 days. Pt was admitted for CHF exacerbation. Nephrology was called for TEDDY. On my interview, pt states she had been short of breath for several days prior to admission, but is feeling better now. She still admits to some fatigue and shoulder pain from having slipped in the bathroom. She also admits to NSAID use for several days prior to admission. REVIEW OF SYSTEMS: CONSTITUTIONAL: Absent: fever, chills, diaphoresis, generalized weakness, malaise, loss of appetite, weight change HEENT: Absent: rhinorrhea, nasal congestion, throat pain, throat swelling, difficulty swallowing, mouth swelling, ear pain, eye pain, visual changes CARDIOVASCULAR: Absent: chest pain, syncope, palpitations, irregular heart rate, lightheadedness , peripheral edema RESPIRATORY: shortness of breath Absent: cough, , dyspnea with exertion, orthopnea, wheezing, stridor, hemoptysis GASTROINTESTINAL: Absent: abdominal pain, abdominal distension, nausea, vomiting, diarrhea, constipation, melena, hematochezia GENITOURINARY: Absent: dysuria, frequency, urgency, hesitancy, hematuria, flank pain, genital pain MUSCULOSKELETAL: Absent: myalgia, arthralgia, joint swelling, back pain, neck pain SKIN: Absent: rash, itching, pallor HEMATOLOGIC/IMMUNOLOGIC: Absent: easy bleeding, easy bruising, lymphadenopathy, frequent infections ENDOCRINE: Absent: unexplained weight gain, unexplained weight loss, heat intolerance, cold intolerance NEUROLOGIC: Absent: headache, focal weakness or paresthesias, dizziness, unsteady gait, seizure, mental status changes, bladder or bowel incontinence PSYCHIATRIC: Absent: anxiety, depression, suicidal or homicidal ideation, hallucinations. PHYSICAL EXAMINATION Vital Signs - 24 hr 08/14/19 08/14/19 08/14/19 17:00 19:31 22:37 Temperature 98.8 F 98.6 F 98.6 F Pulse Rate 95 H 86 86 Respiratory 20 20 20 Rate Blood Pressure 141/88 113/63 113/63 08/15/19 08/15/19 08/15/19 02:00 05:48 09:00 Temperature 97.7 F 97.9 F Pulse Rate 82 95 H Respiratory 20 20 20 Rate Blood Pressure 105/57 L 101/65 08/15/19 08/15/19 10:00 14:16 Temperature 97.9 F 98.4 F Pulse Rate 82 79 Respiratory 20 22 H Rate Blood Pressure 105/60 93/42 L Gen: NAD, AAOx3 HEENT: NCAT, EOMI Neck: no bruits Cardio: rrr, normal s1s2, no mrg noted Pulm: cta b/l Abd: obese, soft, nontender Ext: minimal edema Laboratory Results - last 24 hr 08/15/19 08/15/19 08/15/19 06:10 06:10 06:15 WBC 9.9 RBC 3.94 Hgb 10.0 L Hct 31.3 L MCV 79.6 L MCH 25.4 L MCHC 32.0 RDW 18.9 H Plt Count 442 H MPV 7.4 L Absolute Neuts (auto) 5.0 Neutrophils % 50.4 Lymphocytes % 35.9 D Monocytes % 9.5 Eosinophils % 3.5 Basophils % 0.7 Nucleated RBC % 0 Puncture Site Left radial ABG pH 7.40 ABG pCO2 at Pt Temp 38.2 ABG pO2 at Pt Temp 87.2 ABG HCO3 22.9 ABG O2 Sat (Measured) 96.7 ABG O2 Content 13.2 ABG Base Excess -1.2 Gopi Test Positive O2 Delivery Device Room air Oxygen Flow Rate No Sodium 137 Potassium 4.1 Chloride 102 Carbon Dioxide 26 Anion Gap 8 BUN 39.8 H Creatinine 2.0 H Est GFR (CKD-EPI)AfAm 30.89 Est GFR (CKD-EPI)NonAf 26.65 Random Glucose 110 H Calcium 9.0 Magnesium 2.4 Active Medications Generic Name Dose Route Start Last Admin Trade Name Freq PRN Reason Stop Dose Admin Acetaminophen 325 mg 08/14/19 08:22 08/15/19 13:42 Tylenol - PO 325 mg Q6H PRN Administration PAIN LEVEL 6-10 Apixaban 5 mg 08/13/19 10:00 08/15/19 10:16 Eliquis - PO 5 mg BID [facility] Administration Atorvastatin Calcium 40 mg 08/13/19 22:00 08/14/19 21:08 Lipitor - PO 40 mg HS [facility] Administration Carvedilol 25 mg 08/13/19 10:00 08/15/19 10:19 Coreg - PO 25 mg BID [facility] Administration Cyclobenzaprine HCl 10 mg 08/13/19 10:00 08/15/19 10:19 Flexeril - PO 10 mg DAILY [facility] Administration Docusate Sodium 100 mg 08/13/19 06:00 08/15/19 13:42 Colace - PO 100 mg TID [facility] Administration Famotidine 20 mg 08/13/19 10:00 08/15/19 10:17 Pepcid - PO 20 mg BID [facility] Administration Ferrous Sulfate 325 mg 08/13/19 10:00 08/15/19 10:19 Feosol - PO 325 mg DAILY [facility] Administration Hydralazine HCl 10 mg 08/13/19 20:30 08/15/19 10:19 Apresoline - PO Not Given BID [facility] Isosorbide Mononitrate 30 mg 08/13/19 20:15 08/15/19 12:40 Imdur - PO 30 mg DAILY [facility] Administration Lidocaine 1 patch 08/13/19 10:00 08/15/19 10:22 Lidoderm Patch - TP 1 patch DAILY [facility] Administration Miscellaneous 1 each 08/13/19 22:00 08/14/19 21:18 Lidoderm Patch Removal MC 1 each DAILY@2200 [facility] Administration Oxycodone HCl 10 mg 08/13/19 10:00 08/15/19 10:17 Oxycontin - PO 10 mg BID [facility] Administration Oxycodone HCl 10 mg 08/14/19 08:21 08/15/19 13:41 Roxicodone - PO 10 mg Q6H PRN Administration PAIN LEVEL 6-10 Pantoprazole Sodium 40 mg 08/13/19 10:00 08/15/19 10:16 Protonix - PO 40 mg DAILY [facility] Administration Polyethylene Glycol 17 gm 08/13/19 10:00 08/15/19 12:40 Miralax (For Daily Use) - PO Not Given DAILY [facility] Senna 2 tab 08/13/19 22:00 08/14/19 21:07 Senna - PO 2 tab HS [facility] Administration Spironolactone 25 mg 08/13/19 10:00 08/15/19 12:40 Aldactone - PO 25 mg DAILY [facility] Administration Venlafaxine HCl 75 mg 08/14/19 08:00 08/15/19 13:42 Effexor - PO 75 mg TIDCM [facility] Administration Zolpidem Tartrate 10 mg 08/13/19 22:00 08/14/19 22:51 Ambien - PO 10 mg HS PRN Administration INSOMNIA ASSESSMENT/PLAN: Pt is a 58 y/o F with PMH with PMH of CHF, PE (on eliquis), HTN, HLD, chronic LLE pain, GERD who presents with SOB for 4 days. Pt was admitted for CHF exacerbation. Nephrology was called for TEDDY. TEDDY -likely 2/2 combination of diuretics, contrast exposure, NSAID use -recommend decreasing intensity of diuretic. Consider switching to PO -monitor volume status, cmp Dispo: We will continue to follow the patient. Thank you for this consultative opportunity. Visit type - Emergency Visit Emergency Visit: No - New Patient This patient is new to me today: Yes Date on this admission: 08/15/19 - Critical Care Critical Care patient: No ATTENDING PHYSICIAN STATEMENT I saw and evaluated the patient. I reviewed the resident's note and discussed the case with the resident. I agree with the resident's findings and plan as documented. SUBJECTIVE: OBJECTIVE: ASSESSMENT AND PLAN:
--- NOTE | 2019-08-15 17:10 | PN ---
Physical Exam: SUBJECTIVE: Patient seen and examined at the bedside. Patient stated that her pain is better controlled and feels better. Endorses good appetite. Denies cp, sob, cough, abd pain, n/v/c/d, fever, chills, dizziness, lightheadedness, headaches. OBJECTIVE: Vital Signs Period Temp Pulse Resp BP Sys/Vilchis Pulse Ox Last 24 Hr 97.7 F-98.6 F 79-95 20-22 93-113/42-65 GENERAL: The patient is awake, alert, and fully oriented, in no acute distress. HEAD: Normal with no signs of trauma. EYES: PERRL, extraocular movements intact, sclera anicteric, conjunctiva clear. ENT: Oropharynx clear without exudates, moist mucous membranes. NECK: Trachea midline, no noted JVD. LUNGS: Decreased breath sounds bilaterally, mild bilateral crackles, no noted wheezes, no accessory muscle use. HEART: Regular rate and rhythm, S1, S2 without murmur, rub. ABDOMEN: Soft, nontender, nondistended, normoactive bowel sounds, no guarding, no rebound, no masses. EXTREMITIES: 2+ pulses, warm, well-perfused, trace peripheral edema. NEUROLOGICAL: Cranial nerves II through XII grossly intact. 5/5 muscle strength bilaterally upper and lower extremities. PSYCH: Upset mood. SKIN: Warm, dry, normal turgor, no rashes or lesions noted. Laboratory Results - last 24 hr 08/15/19 08/15/19 08/15/19 06:10 06:10 06:15 WBC 9.9 RBC 3.94 Hgb 10.0 L Hct 31.3 L MCV 79.6 L MCH 25.4 L MCHC 32.0 RDW 18.9 H Plt Count 442 H MPV 7.4 L Absolute Neuts (auto) 5.0 Neutrophils % 50.4 Lymphocytes % 35.9 D Monocytes % 9.5 Eosinophils % 3.5 Basophils % 0.7 Nucleated RBC % 0 Puncture Site Left radial ABG pH 7.40 ABG pCO2 at Pt Temp 38.2 ABG pO2 at Pt Temp 87.2 ABG HCO3 22.9 ABG O2 Sat (Measured) 96.7 ABG O2 Content 13.2 ABG Base Excess -1.2 Gopi Test Positive O2 Delivery Device Room air Oxygen Flow Rate No Sodium 137 Potassium 4.1 Chloride 102 Carbon Dioxide 26 Anion Gap 8 BUN 39.8 H Creatinine 2.0 H Est GFR (CKD-EPI)AfAm 30.89 Est GFR (CKD-EPI)NonAf 26.65 Random Glucose 110 H Calcium 9.0 Magnesium 2.4 Active Medications Generic Name Dose Route Start Last Admin Trade Name Freq PRN Reason Stop Dose Admin Acetaminophen 325 mg 08/14/19 08:22 08/15/19 13:42 Tylenol - PO 325 mg Q6H PRN Administration PAIN LEVEL 6-10 Apixaban 5 mg 08/13/19 10:00 08/15/19 10:16 Eliquis - PO 5 mg BID EMILI Administration Atorvastatin Calcium 40 mg 08/13/19 22:00 08/14/19 21:08 Lipitor - PO 40 mg HS EMILI Administration Carvedilol 25 mg 08/13/19 10:00 08/15/19 10:19 Coreg - PO 25 mg BID EMILI Administration Cyclobenzaprine HCl 10 mg 08/13/19 10:00 08/15/19 10:19 Flexeril - PO 10 mg DAILY EMILI Administration Docusate Sodium 100 mg 08/13/19 06:00 08/15/19 13:42 Colace - PO 100 mg TID EMILI Administration Famotidine 20 mg 08/13/19 10:00 08/15/19 10:17 Pepcid - PO 20 mg BID EMILI Administration Ferrous Sulfate 325 mg 08/13/19 10:00 08/15/19 10:19 Feosol - PO 325 mg DAILY EMILI Administration Hydralazine HCl 10 mg 08/13/19 20:30 08/15/19 10:19 Apresoline - PO Not Given BID EMILI Isosorbide Mononitrate 30 mg 08/13/19 20:15 08/15/19 12:40 Imdur - PO 30 mg DAILY EMILI Administration Lidocaine 1 patch 08/13/19 10:00 08/15/19 10:22 Lidoderm Patch - TP 1 patch DAILY EMILI Administration Miscellaneous 1 each 08/13/19 22:00 08/14/19 21:18 Lidoderm Patch Removal MC 1 each DAILY@2200 EMILI Administration Oxycodone HCl 10 mg 08/13/19 10:00 08/15/19 10:17 Oxycontin - PO 10 mg BID EMILI Administration Oxycodone HCl 10 mg 08/14/19 08:21 08/15/19 13:41 Roxicodone - PO 10 mg Q6H PRN Administration PAIN LEVEL 6-10 Pantoprazole Sodium 40 mg 08/13/19 10:00 08/15/19 10:16 Protonix - PO 40 mg DAILY EMILI Administration Polyethylene Glycol 17 gm 08/13/19 10:00 08/15/19 12:40 Miralax (For Daily Use) - PO Not Given DAILY EMILI Senna 2 tab 08/13/19 22:00 08/14/19 21:07 Senna - PO 2 tab HS EMILI Administration Spironolactone 25 mg 08/13/19 10:00 08/15/19 12:40 Aldactone - PO 25 mg DAILY EMILI Administration Venlafaxine HCl 75 mg 08/14/19 08:00 08/15/19 13:42 Effexor - PO 75 mg TIDCM EMILI Administration Zolpidem Tartrate 10 mg 08/13/19 22:00 08/14/19 22:51 Ambien - PO 10 mg HS PRN Administration INSOMNIA ASSESSMENT/PLAN: Casey Greenwood is a 58 year old female with a past medical history of CHF, PE (on eliquis), HTN, HLD, chronic LLE pain, GERD admitted for shortness of breath. Shortness of breath - previous echo (06/25): EF of 25%, will discuss if necessary for lifevest - CTA: no evidence of PE, with noted pericardial effusion - echo noting severely reduced LV function, sever global hypokinesis of left ventricle, mild pericardial effusion, mild tricuspid regurg, mild to mod mitral regurg - Duplex: no evidence of DVT - no clinical signs of CHF - Lasix 40mg daily, home dose as confirmed with previous cardiology notes, holding now as per cardiology - Strict I&O's, daily weights, restricted fluid intake - Tele monitoring - Cardiology consultation, recs appreciated - Respiratory consultation, recs appreciated, sleep apnea screening, will require full sleep study outpatient - assess with chest PA/lateral in AM Microcytic anemia - iron studies noting iron deficiency anemia - continue home ferrous sulfate - will need outpatient GI followup Hypetensive urgency - Will cont pt's home meds: Coreg 25mg BID, Aldactone 25mg daily - lisinopril to 10mg daily - Discussed importance of weight loss, salt restriction, and exercise - EKG with noted T wave inversions present on previous EKG TEDDY - increasing CRE - likely combination of NSAID use, diuretic use, contrast - nephrology consulted, recs appreciated - holding diuretics - continue to monitor HLD - elevated chol, LDL - Lipitor 40mg Hx of PE - Cont home eliquis 5mg BID Hx of CHF/Dilated cardiomyopathy - on coreg, aldactone, lisinopril - as per obtained records is considered for ICD per her micropaleontologist, has had cardiac cath, records from [facility] pending - cath report obtained noting mild diffuse disease in LAD, no other vessel obstruction. Venticulogram noting severely hypokinetic anterobasal and posterobasal segments, mildly hypokinetic anterolateral, apical, and diaphreagmatic segments. LVEF 35% - has lifevest and non-compliant with it - outpatient micropaleontologist likely starting Entresto for patient, will f/u with outpatient cardiology Chronic LLE pain - Cont Oxy 10mg bid, Flexeril 10mg, Neurontin 400mg Q8H, lidoderm patch, Percocet 10-325mg q6h prn as confirmed with pharmacy and ISTOP - L spine MRI pending - patient now saying her pain is at baseline - will need f/u with her pain management physician Morbid Obestity - may have component of obesity hypoventilation syndrome - pulmonology consultation - morning ABG DVT ppx - On eliquis FEN - No standing fluids, caution with fluid in setting of CHF - continue to monitor electrolytes and replete as necessary - Salt-controlled diet, consult paper coating supervisor Dispo - continue to monitor on telemetry Visit type - Emergency Visit Emergency Visit: Yes ED Registration Date: 08/13/19 Care time: The patient presented to the Emergency Department on the above date and was hospitalized for further evaluation of their emergent condition. - New Patient This patient is new to me today: No - Critical Care Critical Care patient: No
--- NOTE | 2019-08-15 17:25 | PN ---
Teaching Attending Note Name of Resident: Raj Gage (Nephrology) ATTENDING PHYSICIAN STATEMENT I saw and evaluated the patient. I reviewed the resident's note and discussed the case with the resident. I agree with the resident's findings and plan as documented. SUBJECTIVE: This is a 58 year old woman with history of CHF, PE, Hypertension, HLD, GERD who presented from home with shortness of breath and noted to have rising Cr during her hospital stay. See HPI and ROS as per resident note. OBJECTIVE: Vital Signs Temperature 98.4 F 08/15/19 14:16 Pulse Rate 79 08/15/19 14:16 Respiratory Rate 22 H 08/15/19 14:16 Blood Pressure 93/42 L 08/15/19 14:16 O2 Sat by Pulse Oximetry (%) 100 08/13/19 06:25 Intake & Output 08/12/19 08/13/19 08/14/19 08/15/19 23:59 23:59 23:59 23:59 Intake Total 480 400 609 Balance 480 400 609 Weight 120.65 kg 120.769 kg 120.656 kg 122.198 kg CBC, BMP 08/15/19 06:10 08/15/19 06:10 Current Medications Acetaminophen (Tylenol -) 325 mg PO Q6H PRN PRN Reason: PAIN LEVEL 6-10 Last Admin: 08/15/19 13:42 Dose: 325 mg Apixaban (Eliquis -) 5 mg PO BID [facility] Last Admin: 08/15/19 10:16 Dose: 5 mg Atorvastatin Calcium (Lipitor -) 40 mg PO HS [facility] Last Admin: 08/14/19 21:08 Dose: 40 mg Carvedilol (Coreg -) 25 mg PO BID [facility] Last Admin: 08/15/19 10:19 Dose: 25 mg Cyclobenzaprine HCl (Flexeril -) 10 mg PO DAILY [facility] Last Admin: 08/15/19 10:19 Dose: 10 mg Docusate Sodium (Colace -) 100 mg PO TID [facility] Last Admin: 08/15/19 13:42 Dose: 100 mg Famotidine (Pepcid -) 20 mg PO BID [facility] Last Admin: 08/15/19 10:17 Dose: 20 mg Ferrous Sulfate (Feosol -) 325 mg PO DAILY [facility] Last Admin: 08/15/19 10:19 Dose: 325 mg Hydralazine HCl (Apresoline -) 10 mg PO BID [facility] Last Admin: 08/15/19 10:19 Dose: Not Given Isosorbide Mononitrate (Imdur -) 30 mg PO DAILY [facility] Last Admin: 08/15/19 12:40 Dose: 30 mg Lidocaine (Lidoderm Patch -) 1 patch TP DAILY [facility] Last Admin: 08/15/19 10:22 Dose: 1 patch Miscellaneous (Lidoderm Patch Removal) 1 each MC DAILY@2200 [facility] Last Admin: 08/14/19 21:18 Dose: 1 each Oxycodone HCl (Oxycontin -) 10 mg PO BID [facility] Last Admin: 08/15/19 10:17 Dose: 10 mg Oxycodone HCl (Roxicodone -) 10 mg PO Q6H PRN PRN Reason: PAIN LEVEL 6-10 Last Admin: 08/15/19 13:41 Dose: 10 mg Pantoprazole Sodium (Protonix -) 40 mg PO DAILY [facility] Last Admin: 08/15/19 10:16 Dose: 40 mg Polyethylene Glycol (Miralax (For Daily Use) -) 17 gm PO DAILY [facility] Last Admin: 08/15/19 12:40 Dose: Not Given Senna (Senna -) 2 tab PO HS [facility] Last Admin: 08/14/19 21:07 Dose: 2 tab Spironolactone (Aldactone -) 25 mg PO DAILY [facility] Last Admin: 08/15/19 12:40 Dose: 25 mg Venlafaxine HCl (Effexor -) 75 mg PO TIDCM [facility] Last Admin: 08/15/19 13:42 Dose: 75 mg Zolpidem Tartrate (Ambien -) 10 mg PO HS PRN PRN Reason: INSOMNIA Last Admin: 08/14/19 22:51 Dose: 10 mg ASSESSMENT AND PLAN: 58 year old woman with history of CHF, PE, Hypertension, HLD, GERD who presented from home with shortness of breath and noted to have rising Cr during her hospital stay. 1. Acute kidney injury likely multifactorial from CHF/Renal hypoprofusion vs. contrast nephropathy vs. NSAID induced renal injury 2. CHF exacerbation 3. Hypertension 4. Hx of PE on A/C 5. Hyperlipidemia Trend renal function daily, waiting Cr to plateau. Check urine studies for FeNa, FeUrea, Urine Eosinophils Would hold ROMI and loop diuretics for now Can consider restarting lower potency oral diuretic tomorrow if renal function stable Cardiology follow up Continue iron infusion for anemia Thank you Dino Fuentes DO
[2019-08-15] MEDS: ZOLPIDEM TARTRATE 5 MG TABLET PO PRN (22:42)
[2019-08-15] MEDS: SENNOSIDES 8.6MG TABLET (FP) PO SCH (22:42)
[2019-08-15] MEDS: ATORVASTATIN CA 40 MG TABLET (FP) PO SCH (22:43)
[2019-08-15] MEDS: LIDOCAINE PATCH REMOVAL MC SCH (22:44)
--- NOTE | 2019-08-16 06:20 | PN ---
Physical Exam: SUBJECTIVE: Patient seen and examined at the bedside. Patient more agreeable today and stated she is doing well. Endorsed her pain is at her baseline and is slightly improved. Endorsed good appetite. Denied cp, sob, abd pain, n/v/c/d, fever, chills, headaches, dizziness, lightheadedness, numbness, tingling, focal weakness. OBJECTIVE: Vital Signs Period Temp Pulse Resp BP Sys/Vilchis Pulse Ox Last 24 Hr 97.6 F-98.4 F 79-89 18-22 93-110/42-64 GENERAL: The patient is awake, alert, and fully oriented, in no acute distress. HEAD: Normal with no signs of trauma. EYES: PERRL, extraocular movements intact, sclera anicteric, conjunctiva clear. ENT: Oropharynx clear without exudates, moist mucous membranes. NECK: Trachea midline, no noted JVD. LUNGS: Decreased breath sounds bilaterally, trace bilateral crackles, no noted wheezes, no accessory muscle use. HEART: Regular rate and rhythm, S1, S2 without murmur, rub. ABDOMEN: Soft, nontender, nondistended, normoactive bowel sounds, no guarding, no rebound, no masses. EXTREMITIES: 2+ pulses, warm, well-perfused, trace peripheral edema. NEUROLOGICAL: Cranial nerves II through XII grossly intact. 5/5 muscle strength bilaterally upper and lower extremities. PSYCH: Normal mood and affect. SKIN: Warm, dry, normal turgor, no rashes or lesions noted. Laboratory Results - last 24 hr 08/15/19 08/15/19 08/15/19 06:10 06:10 06:15 WBC 9.9 RBC 3.94 Hgb 10.0 L Hct 31.3 L MCV 79.6 L MCH 25.4 L MCHC 32.0 RDW 18.9 H Plt Count 442 H MPV 7.4 L Absolute Neuts (auto) 5.0 Neutrophils % 50.4 Lymphocytes % 35.9 D Monocytes % 9.5 Eosinophils % 3.5 Basophils % 0.7 Nucleated RBC % 0 Puncture Site Left radial ABG pH 7.40 ABG pCO2 at Pt Temp 38.2 ABG pO2 at Pt Temp 87.2 ABG HCO3 22.9 ABG O2 Sat (Measured) 96.7 ABG O2 Content 13.2 ABG Base Excess -1.2 Gopi Test Positive O2 Delivery Device Room air Oxygen Flow Rate No Sodium 137 Potassium 4.1 Chloride 102 Carbon Dioxide 26 Anion Gap 8 BUN 39.8 H Creatinine 2.0 H Est GFR (CKD-EPI)AfAm 30.89 Est GFR (CKD-EPI)NonAf 26.65 Random Glucose 110 H Calcium 9.0 Magnesium 2.4 Active Medications Generic Name Dose Route Start Last Admin Trade Name Freq PRN Reason Stop Dose Admin Acetaminophen 325 mg 08/14/19 08:22 08/15/19 20:12 Tylenol - PO 325 mg Q6H PRN Administration PAIN LEVEL 6-10 Apixaban 5 mg 08/13/19 10:00 08/15/19 22:41 Eliquis - PO 5 mg BID EMILI Administration Atorvastatin Calcium 40 mg 08/13/19 22:00 08/15/19 22:43 Lipitor - PO 40 mg HS EMILI Administration Carvedilol 25 mg 08/13/19 10:00 08/15/19 22:42 Coreg - PO 25 mg BID EMILI Administration Cyclobenzaprine HCl 10 mg 08/13/19 10:00 08/15/19 10:19 Flexeril - PO 10 mg DAILY EMILI Administration Docusate Sodium 100 mg 08/13/19 06:00 08/15/19 22:41 Colace - PO 100 mg TID EMILI Administration Famotidine 20 mg 08/13/19 10:00 08/15/19 22:43 Pepcid - PO 20 mg BID EMILI Administration Ferrous Sulfate 325 mg 08/13/19 10:00 08/15/19 10:19 Feosol - PO 325 mg DAILY EMILI Administration Hydralazine HCl 10 mg 08/13/19 20:30 08/15/19 22:44 Apresoline - PO Not Given BID EMILI Isosorbide Mononitrate 30 mg 08/13/19 20:15 08/15/19 12:40 Imdur - PO 30 mg DAILY EIMLI Administration Lidocaine 1 patch 08/13/19 10:00 08/15/19 10:22 Lidoderm Patch - TP 1 patch DAILY EMILI Administration Miscellaneous 1 each 08/13/19 22:00 08/15/19 22:44 Lidoderm Patch Removal MC 1 each DAILY@2200 EMILI Administration Oxycodone HCl 10 mg 08/13/19 10:00 08/15/19 22:42 Oxycontin - PO 10 mg BID EMILI Administration Oxycodone HCl 10 mg 08/14/19 08:21 08/15/19 20:10 Roxicodone - PO 10 mg Q6H PRN Administration PAIN LEVEL 6-10 Pantoprazole Sodium 40 mg 08/13/19 10:00 08/15/19 10:16 Protonix - PO 40 mg DAILY EMILI Administration Polyethylene Glycol 17 gm 08/13/19 10:00 08/15/19 12:40 Miralax (For Daily Use) - PO Not Given DAILY EMILI Senna 2 tab 08/13/19 22:00 08/15/19 22:42 Senna - PO 2 tab HS EMILI Administration Spironolactone 25 mg 08/13/19 10:00 08/15/19 12:40 Aldactone - PO 25 mg DAILY EMILI Administration Venlafaxine HCl 75 mg 08/14/19 08:00 08/15/19 17:24 Effexor - PO 75 mg TIDCM EMILI Administration Zolpidem Tartrate 10 mg 08/13/19 22:00 08/15/19 22:42 Ambien - PO 10 mg HS PRN Administration INSOMNIA ASSESSMENT/PLAN: Casey Greenwood is a 58 year old female with a past medical history of CHF, PE (on eliquis), HTN, HLD, chronic LLE pain, GERD admitted for shortness of breath. Shortness of breath - previous echo (06/25): EF of 25%, will discuss if necessary for lifevest - CTA: no evidence of PE, with noted pericardial effusion - echo noting severely reduced LV function, severe global hypokinesis of left ventricle, mild pericardial effusion, mild tricuspid regurg, mild to mod mitral regurg - Duplex: no evidence of DVT - no clinical signs of CHF - Lasix 40mg daily, home dose as confirmed with previous cardiology notes, holding now as per cardiology - Strict I&O's, daily weights, restricted fluid intake - Tele monitoring - Cardiology consultation, recs appreciated - Respiratory consultation, recs appreciated, sleep apnea screening, will require full sleep study outpatient - repeat CXR with no infiltrates or evidence of heart failure Microcytic anemia - iron studies noting iron deficiency anemia - continue home ferrous sulfate - will need outpatient GI followup, spoken with Dr. Dumont and patient can f/u outpatient if no active bleed noted Hypetensive urgency - currently resolved - Will cont pt's home meds: Coreg 25mg BID, Aldactone 25mg daily - lisinopril 10mg daily, held in the setting of TEDDY - Discussed importance of weight loss, salt restriction, and exercise - EKG with noted T wave inversions present on previous EKG - repeat EKG with LVH, T wave inversions in lateral leads TEDDY - increasing CRE - likely combination of NSAID use, diuretic use, contrast - nephrology consulted, recs appreciated - holding diuretics - continue to monitor HLD - elevated chol, LDL - Lipitor 40mg Hx of PE - Cont home eliquis 5mg BID Hx of CHF/Dilated cardiomyopathy - on coreg, aldactone, lisinopril - as per obtained records is considered for ICD per her bin cleaner, has had cardiac cath, records from [facility] pending - cath report obtained noting mild diffuse disease in LAD, no other vessel obstruction. Venticulogram noting severely hypokinetic anterobasal and posterobasal segments, mildly hypokinetic anterolateral, apical, and diaphreagmatic segments. LVEF 35% - has lifevest and non-compliant with it, will have it brought to her in the hospital before discharge to ensure safe discharge - outpatient bin cleaner likely starting Entresto for patient, will f/u with outpatient cardiology Chronic LLE pain - Cont Oxy 10mg bid, Flexeril 10mg, Neurontin 400mg Q8H, lidoderm patch, Percocet 10-325mg q6h prn as confirmed with pharmacy and ISTOP - L spine MRI noted cannot be performed as inpatient for chronic back pain, will need to have scan as outpatient - patient now saying her pain is at baseline - will need f/u with her pain management physician Morbid Obestity - pulmonology consultation - ABG with no noted retention - AHI 61.5, will need full sleep study as outpatient DVT ppx - On eliquis FEN - No standing fluids, caution with fluid in setting of CHF - continue to monitor electrolytes and replete as necessary - Salt-controlled diet, consult digital marketing manager Dispo - continue to monitor on telemetry Visit type - Emergency Visit Emergency Visit: Yes ED Registration Date: 08/13/19 Care time: The patient presented to the Emergency Department on the above date and was hospitalized for further evaluation of their emergent condition. - New Patient This patient is new to me today: No - Critical Care Critical Care patient: No
[2019-08-16] MEDS: oxyCODONE HCL 5 MG TABLET PO PRN ×2 (07:06→14:02)
[2019-08-16] MEDS: DOCUSATE SODIUM 100 MG CAPSULE (FP) PO SCH ×3 (07:06→21:06)
[2019-08-16] MEDS: ACETAMINOPHEN 325 MG TABLET (FP) PO PRN ×2 (07:06→14:03)
[2019-08-16 07:22] LABS: BASO % 0.8 % (0-2.0); EOS % 5.7 % (0-4.5); HEMATOCRIT 29.1 % (32.4-45.2); HEMOGLOBIN 9.1 GM/dL (10.7-15.3); LYMPH % 33.1 % (8-40); MCH 24.9 pg (25.7-33.7); MCHC 31.2 g/dl (32.0-36.0); MEAN PLT VOLUME 7.3 fl (7.5-11.1); MONO % 10.5 % (3.8-10.2); NEUT % 49.9 % (42.8-82.8); PLATELET COUNT 374 K/MM3 (134-434); RBC 3.63 M/mm3 (3.60-5.2); WHITE BLOOD COUNT 7.7 K/mm3 (4.0-10.0)
[2019-08-16 07:50] LABS: ALBUMIN 3.4 g/dl (3.4-5.0); BILIRUBIN,TOTAL 0.3 mg/dL (0.2-1); BLOOD UREA NITROGEN 49.7 mg/dL (7-18); CREATININE 2.1 mg/dL (0.55-1.3); MAGNESIUM 2.6 mg/dL (1.8-2.4); POTASSIUM 4.2 mmol/L (3.5-5.1); TOT PROT 7.3 g/dl (6.4-8.2)
[2019-08-16] MEDS ORDERED: PT OWN MED DRAWER 7, Y5N ONE ×3 (08:21→17:03)
[2019-08-16] MEDS: VENLAFAXINE HCL 75 MG TABLET PO SCH ×3 (08:31→17:31)
--- NOTE | 2019-08-16 10:08 | PN ---
Teaching Attending Note Name of Resident: Anthony Dixon ATTENDING PHYSICIAN STATEMENT I saw and evaluated the patient. I reviewed the resident's note and discussed the case with the resident. I agree with the resident's findings and plan as documented. Per cardiology no absolute contraindication to inpatient scope. Will touch base with GI; if they wish to do it will convert to hep ggt and DC prior to procedure per protocol and transition back to home meds. Once renal function stabilizes and her sister brings her life vest to the hospital, she will likely be able to be discharged pending elucidation of the potential gastroenterology study. . Stop furosemide (no signs of acute CHF; rising BUN and Cr). I discussed pt with her quality tester, Dr. Andres Newman. He plans to start Entresto as outpatient if her insurance allows (and assuming BUN/Cr and electrolytes also fall withn range). She has been noncompliant to office visits in the past, and changed quality tester at one point, then returned to him. He believes there is CAD; awaits record of most recent angiogram (?[facility] 6 months ago).If ICD placement was discussed with her in the past; she did not agree to it at the time. He will discuss it again with her (she has an appointment scheduled with him for tomorrow; if she does not make this, another appointment may be scheduled for next week). From a cardiac standpoint, pt may be followed as an outpatient. If GI issues are stable, would continue workup for anemia as outpatient. If felt necessary to have EGD/colonoscopy this admission, there are no absolute contraindications to do so from a cardiac standpoint. Objective: VS, labs, imaging reviewed NAD, AAO, resting comfortably in bed. RRR s1/2 no mgr Normal muscle tone, moves all 5 extremities with normal apparent strength Neck is supple, trachea midline, no shayla LN Lungs CTAB with sym expansion NT ND +BS no shayla organomegaly CN2-12 wnl; no FND NC AT EOMI PERRLA Normal mood, appropriate behavior, euthymic affect No skin breakdown or rashes noted A/P: Patient with a history of CHF secondary to ?Dilated CMyo, hypertension, cholelithiasis, GERD, hypertension Problems include: -Shortness of breath secondary to CHF exacerbation (NYHA-III baseline symptoms, Severe structural disease should actually be on life vest but is noncompliant) Continue carvedilol, sprionolactone,, hydralazine, imdur. Entresto as OP. Stable function. Would hold nephrotoxins as per nephrology. -Nonobstructive CAD (Pending report transmission; complicated as she forgets what [facility] she was at; pending report) -Fall -Chronic radicular lower back pain with neuropathy (No red flag exam signs or symptoms. Checking ISTOP; has been consistently requesting narcotics [per CV consultation: "patient has consistently asked for narcotic pain management, she was advised that due to history of noncompliance and enrollment in pain management on an outpatient basis this will be discussed with the admitting team ". Checking L-spine MRI given >3 months of symptoms with +radiculopathy and sx persisting despite treatment. If needed will consult neurosurgery] -Degenerative Joint Disease of the R-shoulder (noted on XR) -Hx DM -Hypertensive urgency -Microcytic anemia -History of pulmonary embolism on Xarelto, continue Xarelto, no PE seen per radiology -History of hyperlipidemia -History of uncontrolled hypertension, as per above -Demyelination noted on CT (seen last admission with MRI done and discussed with Dr. Pierre at that time; he states that the process seen was likely secondary to microvascular changes. Given persisting pain and fall will reconsult to see if he wants any further workup vs. OP followup) -Paraesophageal Hiatal Hernia (Seen on CTA Chest) -Morbid obesity (BMI 43) -History of Noncompliance Full Code
[2019-08-16] MEDS: FERROUS SO4 325 MG TABLET (FP) PO SCH (10:17)
[2019-08-16] MEDS: CARVEDILOL 25 MG TABLET (FP) PO SCH ×2 (10:17→21:05)
[2019-08-16] MEDS: oxyCODONE HCL 10 MG SUSTAINED ACTING TABLET PO SCH ×2 (10:18→21:06)
[2019-08-16] MEDS: SPIRONOLACTONE 25 MG TABLET (FP) PO SCH (10:18)
[2019-08-16] MEDS: APIXABAN 5 MG TABLET PO SCH ×2 (10:19→21:05)
[2019-08-16] MEDS: CYCLOBENZAPRINE HCL 10 MG TABLET (FP) PO SCH (10:19)
[2019-08-16] MEDS: PANTOPRAZOLE 40 MG TABLET (FP) PO SCH (10:19)
[2019-08-16] MEDS: LIDOCAINE 5% TOPICAL PATCH TP SCH (10:19)
[2019-08-16] MEDS: POLYETHYLENE GLYCOL 3350 119 GM BTL PO SCH (10:19)
[2019-08-16] MEDS: hydrALAZINE HCL 10 MG TABLET PO SCH ×2 (10:20→21:06)
[2019-08-16] MEDS: FAMOTIDINE 20 MG TABLET PO SCH ×2 (10:20→21:06)
[2019-08-16] MEDS: ISOSORBIDE MONONITRATE 30 MG TAB.SR.24H (FP) PO SCH (10:22)
--- NOTE | 2019-08-16 11:55 | EKG ---
Test Reason : Blood Pressure : / mmHG Vent. Rate : 088 BPM Atrial Rate : 088 BPM P-R Int : 168 ms QRS Dur : 100 ms QT Int : 386 ms P-R-T Axes : 043 -12 137 degrees QTc Int : 467 ms NORMAL SINUS RHYTHM LEFT VENTRICULAR HYPERTROPHY WITH REPOLARIZATION ABNORMALITY ABNORMAL ECG WHEN COMPARED WITH ECG OF 13-AUG-2019 01:41, T WAVE INVERSION NO LONGER EVIDENT IN INFERIOR LEADS T WAVE INVERSION NOW EVIDENT IN LATERAL LEADS Confirmed by SHEILA SWEET MD ([id number]) on 08/16/2019 11:54:33 AM Referred By: SHAWN RICH DR Confirmed By:SHEILA SWEET MD
--- NOTE | 2019-08-16 12:05 | PN ---
Progress Note (short form) - Note Progress Note: Breathing feels better but still not at baseline. Some TIRADO. No CP. No acute events overnight. Sleep screen: AHI 61.5. Intake & Output 08/13/19 08/14/19 08/15/19 08/16/19 23:59 23:59 23:59 23:59 Intake Total 876 442 8123 340 Balance 766 733 8520 340 Weight 266 lb 4 oz 266 lb 269 lb 6.4 oz 270 lb 3.2 oz Last Vital Signs Temp Pulse Resp BP Pulse Ox 98.0 F 86 20 135/65 100 08/16/19 08:47 08/16/19 08:47 08/16/19 08:47 08/16/19 08:47 08/13/19 06:25 Active Medications Acetaminophen (Tylenol -) 325 mg PO Q6H PRN PRN Reason: PAIN LEVEL 6-10 Last Admin: 08/16/19 07:06 Dose: 325 mg Apixaban (Eliquis -) 5 mg PO BID [facility] Last Admin: 08/16/19 10:19 Dose: 5 mg Atorvastatin Calcium (Lipitor -) 40 mg PO HS [facility] Last Admin: 08/15/19 22:43 Dose: 40 mg Carvedilol (Coreg -) 25 mg PO BID [facility] Last Admin: 08/16/19 10:17 Dose: 25 mg Cyclobenzaprine HCl (Flexeril -) 10 mg PO DAILY [facility] Last Admin: 08/16/19 10:19 Dose: 10 mg Docusate Sodium (Colace -) 100 mg PO TID [facility] Last Admin: 08/16/19 07:06 Dose: 100 mg Famotidine (Pepcid -) 20 mg PO BID [facility] Last Admin: 08/16/19 10:20 Dose: 20 mg Ferrous Sulfate (Feosol -) 325 mg PO DAILY [facility] Last Admin: 08/16/19 10:17 Dose: 325 mg Hydralazine HCl (Apresoline -) 10 mg PO BID [facility] Last Admin: 08/16/19 10:20 Dose: Not Given Isosorbide Mononitrate (Imdur -) 30 mg PO DAILY [facility] Last Admin: 08/16/19 10:22 Dose: 30 mg Lidocaine (Lidoderm Patch -) 1 patch TP DAILY [facility] Last Admin: 08/16/19 10:19 Dose: 1 patch Miscellaneous (Lidoderm Patch Removal) 1 each MC DAILY@2200 [facility] Last Admin: 08/15/19 22:44 Dose: 1 each Oxycodone HCl (Oxycontin -) 10 mg PO BID [facility] Last Admin: 08/16/19 10:18 Dose: 10 mg Oxycodone HCl (Roxicodone -) 10 mg PO Q6H PRN PRN Reason: PAIN LEVEL 6-10 Last Admin: 08/16/19 07:06 Dose: 10 mg Pantoprazole Sodium (Protonix -) 40 mg PO DAILY [facility] Last Admin: 08/16/19 10:19 Dose: 40 mg Polyethylene Glycol (Miralax (For Daily Use) -) 17 gm PO DAILY [facility] Last Admin: 08/16/19 10:19 Dose: 17 gm Senna (Senna -) 2 tab PO HS [facility] Last Admin: 08/15/19 22:42 Dose: 2 tab Spironolactone (Aldactone -) 25 mg PO DAILY [facility] Last Admin: 08/16/19 10:18 Dose: 25 mg Venlafaxine HCl (Effexor -) 75 mg PO TIDCM [facility] Last Admin: 08/16/19 08:31 Dose: 75 mg Zolpidem Tartrate (Ambien -) 10 mg PO HS PRN PRN Reason: INSOMNIA Last Admin: 08/15/19 22:42 Dose: 10 mg Gen: NAD at rest Heart: RRR Lung: decreased breath sounds at the bases Abd: soft, nontender Ext: + edema Laboratory Results - last 24 hr 08/16/19 08/16/19 05:49 05:49 WBC 7.7 RBC 3.63 Hgb 9.1 L Hct 29.1 L MCV 80.0 MCH 24.9 L MCHC 31.2 L RDW 19.0 H Plt Count 374 MPV 7.3 L Absolute Neuts (auto) 3.8 Neutrophils % 49.9 Lymphocytes % 33.1 Monocytes % 10.5 H Eosinophils % 5.7 H Basophils % 0.8 Nucleated RBC % 0 Sodium 137 Potassium 4.2 Chloride 103 Carbon Dioxide 26 Anion Gap 8 BUN 49.7 H Creatinine 2.1 H Est GFR (CKD-EPI)AfAm 29.12 Est GFR (CKD-EPI)NonAf 25.13 Random Glucose 107 H Calcium 9.0 Magnesium 2.6 H Total Bilirubin 0.3 AST 10 L ALT 22 Alkaline Phosphatase 89 Total Protein 7.3 Albumin 3.4 A/P Acute on Chronic Systolic Heart Failure h/o PE Suspect Obstructive Sleep Apnea HTN Hyperlipidemia Morbid Obesity Noncompliance - Lasix - monitor urine output, creatinine - daily weights - encourage compliance with diet and medications - O2 to keep Spo2 >90% - continue anticoagulation - will need formal NPSG as outpatient Dr Peterson
--- NOTE | 2019-08-16 14:15 | PN ---
Progress Note, Physician History of Present Illness: 58-year-old black woman with history of dilated cardiomyopathy (severe systolic LV dysfunction),?nonobstructive CAD (pt states she had a coronary angiogram at ? [facility] approximately 6 months ago), morbid obesity, HTN, hyperlipidemia, iron -deficiency anemia, "borderline" DM, s/p pulmonary embolism, noncompliance with recent ED visit/elopement, now with increasing shortness of breath and chronic lower back and LE pain. 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 - Current Medication List Current Medications: Active Medications Acetaminophen (Tylenol -) 325 mg PO Q6H PRN PRN Reason: PAIN LEVEL 6-10 Last Admin: 08/16/19 14:03 Dose: 325 mg Apixaban (Eliquis -) 5 mg PO BID [facility] Last Admin: 08/16/19 10:19 Dose: 5 mg Atorvastatin Calcium (Lipitor -) 40 mg PO HS [facility] Last Admin: 08/15/19 22:43 Dose: 40 mg Carvedilol (Coreg -) 25 mg PO BID [facility] Last Admin: 08/16/19 10:17 Dose: 25 mg Cyclobenzaprine HCl (Flexeril -) 10 mg PO DAILY [facility] Last Admin: 08/16/19 10:19 Dose: 10 mg Docusate Sodium (Colace -) 100 mg PO TID [facility] Last Admin: 08/16/19 14:02 Dose: 100 mg Famotidine (Pepcid -) 20 mg PO BID [facility] Last Admin: 08/16/19 10:20 Dose: 20 mg Ferrous Sulfate (Feosol -) 325 mg PO DAILY [facility] Last Admin: 08/16/19 10:17 Dose: 325 mg Hydralazine HCl (Apresoline -) 10 mg PO BID [facility] Last Admin: 08/16/19 10:20 Dose: Not Given Isosorbide Mononitrate (Imdur -) 30 mg PO DAILY [facility] Last Admin: 08/16/19 10:22 Dose: 30 mg Lidocaine (Lidoderm Patch -) 1 patch TP DAILY [facility] Last Admin: 08/16/19 10:19 Dose: 1 patch Miscellaneous (Lidoderm Patch Removal) 1 each MC DAILY@2200 [facility] Last Admin: 08/15/19 22:44 Dose: 1 each Oxycodone HCl (Oxycontin -) 10 mg PO BID [facility] Last Admin: 08/16/19 10:18 Dose: 10 mg Oxycodone HCl (Roxicodone -) 10 mg PO Q6H PRN PRN Reason: PAIN LEVEL 6-10 Last Admin: 08/16/19 14:02 Dose: 10 mg Pantoprazole Sodium (Protonix -) 40 mg PO DAILY [facility] Last Admin: 08/16/19 10:19 Dose: 40 mg Polyethylene Glycol (Miralax (For Daily Use) -) 17 gm PO DAILY [facility] Last Admin: 08/16/19 10:19 Dose: 17 gm Senna (Senna -) 2 tab PO HS [facility] Last Admin: 08/15/19 22:42 Dose: 2 tab Spironolactone (Aldactone -) 25 mg PO DAILY [facility] Last Admin: 08/16/19 10:18 Dose: 25 mg Venlafaxine HCl (Effexor -) 75 mg PO TIDCM [facility] Last Admin: 08/16/19 12:54 Dose: 75 mg Zolpidem Tartrate (Ambien -) 10 mg PO HS PRN PRN Reason: INSOMNIA Last Admin: 08/15/19 22:42 Dose: 10 mg - Objective Vital Signs: Vital Signs Temperature 98.0 F 08/16/19 08:47 Pulse Rate 86 08/16/19 08:47 Respiratory Rate 20 08/16/19 09:00 Blood Pressure 135/65 08/16/19 08:47 O2 Sat by Pulse Oximetry (%) 100 08/13/19 06:25 Eyes: Yes: WNL, Conjunctiva Clear, EOM Intact HENT: Yes: WNL, Atraumatic, Normocephalic Neck: Yes: WNL, Supple, Trachea Midline Cardiovascular: Yes: WNL, Regular Rate and Rhythm Respiratory: Yes: WNL, Regular, CTA Bilaterally Gastrointestinal: Yes: WNL, Normal Bowel Sounds Genitourinary: Yes: WNL Musculoskeletal: Yes: WNL Extremities: Yes: WNL Edema: No Integumentary: Yes: WNL Neurological: Yes: WNL, Alert, Oriented ...Motor Strength: WNL Psychiatric: Yes: WNL Labs: CBC, BMP 08/16/19 05:49 08/16/19 05:49 Assessment/Plan Problems (1) Systolic CHF Assessment/Plan: Continue carvedilol, sprionolactone, lisinopril (increased the latter to 10 mg daily); added hydralazine + Imdur (systolic CHF; HTN). Stop furosemide (no signs of acute CHF; rising BUN and Cr). I discussed pt with her textile worker, Dr. Andres Newman. He plans to start Entresto as outpatient if her insurance allows (and assuming BUN/Cr and electrolytes also fall withn range). She has been noncompliant to office visits in the past, and changed textile worker at one point, then returned to him. He believes there is CAD; awaits record of most recent angiogram (?[facility] 6 months ago).If ICD placement was discussed with her in the past; she did not agree to it at the time. He will discuss it again with her (she has an appointment scheduled with him for tomorrow; if she does not make this, another appointment may be scheduled for next week). From a cardiac standpoint, pt may be followed as an outpatient. If GI issues are stable, would continue workup for anemia as outpatient. If felt necessary to have EGD/colonoscopy this admission, there are no absolute contraindications to do so from a cardiac standpoint. Code(s): I50.20 - UNSPECIFIED SYSTOLIC (CONGESTIVE) HEART FAILURE (2) DM2 (diabetes mellitus, type 2) Assessment/Plan: Consider SGLT-2 inhibitor. Code(s): E11.9 - TYPE 2 DIABETES MELLITUS WITHOUT COMPLICATIONS Qualifiers: Diabetes mellitus nursing home insulin use: unspecified nursing home insulin use status Diabetes mellitus complication status: with other specified complication Qualified Code(s): E11.69 - Type 2 diabetes mellitus with other specified complication (3) Calculus of gallbladder without cholecystitis without obstruction Code(s): K80.20 - CALCULUS OF GALLBLADDER W/O CHOLECYSTITIS W/O OBSTRUCTION (4) Chronic pain Assessment/Plan: On multiple pain medications; she says she eventually wants to come off all of them. She would benefit from a oil painter. Code(s): G89.29 - OTHER CHRONIC PAIN (5) Eloped from emergency department Code(s): Z53.21 - PROC/TRTMT NOT CRD OUT D/T PT LV BEF SEEN BY [facility] (6) History of pulmonary embolism Assessment/Plan: On apixaban. F/u records of event(s). Code(s): Z86.711 - PERSONAL HISTORY OF PULMONARY EMBOLISM (7) Depression Assessment/Plan: On Venlafaxine (Effexor). Code(s): F32.9 - MAJOR DEPRESSIVE DISORDER, SINGLE EPISODE, UNSPECIFIED (8) Essential hypertension Assessment/Plan: On carvedilol, lisinopril (dose increased), and spironolactone. Added hydralazine + Imdur. Code(s): I10 - ESSENTIAL (PRIMARY) HYPERTENSION (9) Morbid obesity Code(s): E66.01 - MORBID (SEVERE) OBESITY DUE TO EXCESS CALORIES (10) Opioid dependence with withdrawal Assessment/Plan: pain management team/MD would be beneficial. Code(s): F11.23 - OPIOID DEPENDENCE WITH WITHDRAWAL (11) [place] cardiac risk >20% in next 10 years Assessment/Plan: coronary artery evaluation was apparently done (coronary angiogram 2019); f/u findings, which pt reports did not require PCI. F/u lipids. Code(s): Z91.89 - OTH PERSONAL RISK FACTORS, NOT ELSEWHERE CLASSIFIED (12) Anemia Assessment/Plan: GI workup in progress. See "systolic CHF" for cardiac recommendations regarding GI procedures. Code(s): D64.9 - ANEMIA, UNSPECIFIED (13) Sleep apnea Assessment/Plan: + sleep studies this admission. F/u as outpatient for formal workup, Rx per practice performance manager. Code(s): G47.30 - SLEEP APNEA, UNSPECIFIED
--- NOTE | 2019-08-16 15:26 | PN ---
Progress Note (short form) - Note Progress Note: Renal follow up for TEDDY Seen and examined at the bedside continues to have mild right shoulder pain no shortness of breath at rest but still has some TIRADO no chest pain, fever, chills, N/V/D making urine no leg swelling Vital Signs Temperature 98.0 F 08/16/19 08:47 Pulse Rate 86 08/16/19 08:47 Respiratory Rate 20 08/16/19 09:00 Blood Pressure 135/65 08/16/19 08:47 O2 Sat by Pulse Oximetry (%) 100 08/13/19 06:25 Intake & Output 08/13/19 08/14/19 08/15/19 08/16/19 23:59 23:59 23:59 23:59 Intake Total 816 220 1035 340 Balance 285 657 9054 340 Weight 120.769 kg 120.656 kg 122.198 kg 122.561 kg NAD awake and alert CTA no LE edema CBC, BMP 08/16/19 05:49 08/16/19 05:49 Current Medications Acetaminophen (Tylenol -) 325 mg PO Q6H PRN PRN Reason: PAIN LEVEL 6-10 Last Admin: 08/16/19 14:03 Dose: 325 mg Apixaban (Eliquis -) 5 mg PO BID [facility] Last Admin: 08/16/19 10:19 Dose: 5 mg Atorvastatin Calcium (Lipitor -) 40 mg PO HS [facility] Last Admin: 08/15/19 22:43 Dose: 40 mg Carvedilol (Coreg -) 25 mg PO BID [facility] Last Admin: 08/16/19 10:17 Dose: 25 mg Cyclobenzaprine HCl (Flexeril -) 10 mg PO DAILY [facility] Last Admin: 08/16/19 10:19 Dose: 10 mg Docusate Sodium (Colace -) 100 mg PO TID [facility] Last Admin: 08/16/19 14:02 Dose: 100 mg Famotidine (Pepcid -) 20 mg PO BID [facility] Last Admin: 08/16/19 10:20 Dose: 20 mg Ferrous Sulfate (Feosol -) 325 mg PO DAILY [facility] Last Admin: 08/16/19 10:17 Dose: 325 mg Hydralazine HCl (Apresoline -) 10 mg PO BID [facility] Last Admin: 08/16/19 10:20 Dose: Not Given Isosorbide Mononitrate (Imdur -) 30 mg PO DAILY [facility] Last Admin: 08/16/19 10:22 Dose: 30 mg Lidocaine (Lidoderm Patch -) 1 patch TP DAILY [facility] Last Admin: 08/16/19 10:19 Dose: 1 patch Miscellaneous (Lidoderm Patch Removal) 1 each MC DAILY@2200 [facility] Last Admin: 08/15/19 22:44 Dose: 1 each Oxycodone HCl (Oxycontin -) 10 mg PO BID [facility] Last Admin: 08/16/19 10:18 Dose: 10 mg Oxycodone HCl (Roxicodone -) 10 mg PO Q6H PRN PRN Reason: PAIN LEVEL 6-10 Last Admin: 08/16/19 14:02 Dose: 10 mg Pantoprazole Sodium (Protonix -) 40 mg PO DAILY [facility] Last Admin: 08/16/19 10:19 Dose: 40 mg Polyethylene Glycol (Miralax (For Daily Use) -) 17 gm PO DAILY [facility] Last Admin: 08/16/19 10:19 Dose: 17 gm Senna (Senna -) 2 tab PO HS [facility] Last Admin: 08/15/19 22:42 Dose: 2 tab Spironolactone (Aldactone -) 25 mg PO DAILY [facility] Last Admin: 08/16/19 10:18 Dose: 25 mg Venlafaxine HCl (Effexor -) 75 mg PO TIDCM [facility] Last Admin: 08/16/19 12:54 Dose: 75 mg Zolpidem Tartrate (Ambien -) 10 mg PO HS PRN PRN Reason: INSOMNIA Last Admin: 08/15/19 22:42 Dose: 10 mg ASSESSMENT AND PLAN: 58 year old woman with history of CHF, PE, Hypertension, HLD, GERD who presented from home with shortness of breath and noted to have rising Cr during her hospital stay. 1. Acute kidney injury likely multifactorial from CHF/Renal hypoprofusion vs. contrast nephropathy vs. NSAID induced renal injury 2. CHF exacerbation 3. Hypertension 4. Hx of PE on A/C 5. Hyperlipidemia Renal function stable, not yet improved. no clinical signs of volume overload Urine studies Would hold ROMI and loop diuretics for now Can given diuretics as needed but would try to weight until renal function shows signs of improvement before starting standing oral dose Cardiology follow up Thank you Dino Fuentes DO
[2019-08-16] MEDS ORDERED: LACTULOSE 20 GM/30 ML UDC (FOR ORAL USE ONLY) PO ONE (15:47)
[2019-08-16] MEDS: ZOLPIDEM TARTRATE 5 MG TABLET PO PRN ×2 (21:05→22:46)
[2019-08-16] MEDS: ATORVASTATIN CA 40 MG TABLET (FP) PO SCH (21:05)
[2019-08-16] MEDS: SENNOSIDES 8.6MG TABLET (FP) PO SCH (21:05)
[2019-08-16] MEDS: LIDOCAINE PATCH REMOVAL MC SCH (21:06)
[2019-08-17] MEDS: oxyCODONE HCL 5 MG TABLET PO PRN ×2 (04:34→15:40)
[2019-08-17] MEDS: DOCUSATE SODIUM 100 MG CAPSULE (FP) PO SCH ×3 (05:12→21:34)
[2019-08-17 07:09] LABS: ALBUMIN 3.4 g/dl (3.4-5.0); BASO % 0.7 % (0-2.0); BILIRUBIN,TOTAL 0.3 mg/dL (0.2-1); BLOOD UREA NITROGEN 35.2 mg/dL (7-18); CALCIUM 8.9 mg/dL (8.5-10.1); CREATININE 1.5 mg/dL (0.55-1.3); EOS % 4.9 % (0-4.5); HEMATOCRIT 28.3 % (32.4-45.2); LYMPH % 27.7 % (8-40); MAGNESIUM 2.5 mg/dL (1.8-2.4); MCH 25.4 pg (25.7-33.7); MCHC 31.8 g/dl (32.0-36.0); MEAN PLT VOLUME 7.4 fl (7.5-11.1); MONO % 9.4 % (3.8-10.2); NEUT % 57.3 % (42.8-82.8); PLATELET COUNT 372 K/MM3 (134-434); POTASSIUM 4.4 mmol/L (3.5-5.1); RBC 3.54 M/mm3 (3.60-5.2); RDW 19.2 % (11.6-15.6); TOT PROT 7.4 g/dl (6.4-8.2); WHITE BLOOD COUNT 7.2 K/mm3 (4.0-10.0)
--- NOTE | 2019-08-17 08:32 | PN.GI ---
GI Progress Note Subjective: NO NEW COMPLAINTS - DENIES ABD PAIN / N/V / GI BLEED - Objective Vital Signs: Vital Signs Temperature 98.7 F 08/17/19 05:17 Pulse Rate 86 08/17/19 05:17 Respiratory Rate 20 08/17/19 05:17 Blood Pressure 117/72 08/17/19 05:17 O2 Sat by Pulse Oximetry (%) 100 08/13/19 06:25 Constitutional: Well Nourished, No Distress, Calm Eyes: Yes: WNL HENT: Yes: WNL Neck: Yes: WNL Cardiovascular: Yes: WNL Respiratory: Yes: WNL Gastrointestinal Inspection: Yes: WNL ...Auscultate: Yes: Normoactive Bowel Sounds Musculoskeletal: Yes: WNL Extremities: Yes: WNL Edema: No Labs: CBC, BMP 08/17/19 05:55 08/17/19 05:55 Problem List - Problems (1) Anemia Assessment/Plan: H/H STABLE PPI THERAPY OUTPT DIAGNOSTIC EGD / COLONOSCOPY Code(s): D64.9 - ANEMIA, UNSPECIFIED (2) CHF (congestive heart failure) Code(s): I50.9 - HEART FAILURE, UNSPECIFIED Qualifiers: Heart failure type: unspecified Heart failure chronicity: unspecified Qualified Code(s): I50.9 - Heart failure, unspecified (3) Sleep apnea Code(s): G47.30 - SLEEP APNEA, UNSPECIFIED
[2019-08-17] MEDS ORDERED: PT OWN MED DRAWER 7, Y5N ONE (09:00)
[2019-08-17] MEDS: ISOSORBIDE MONONITRATE 30 MG TAB.SR.24H (FP) PO SCH (09:21)
[2019-08-17] MEDS: FERROUS SO4 325 MG TABLET (FP) PO SCH (09:21)
[2019-08-17] MEDS: CARVEDILOL 25 MG TABLET (FP) PO SCH ×2 (09:21→21:35)
[2019-08-17] MEDS: hydrALAZINE HCL 10 MG TABLET PO SCH ×2 (09:21→21:35)
[2019-08-17] MEDS: VENLAFAXINE HCL 75 MG TABLET PO SCH ×3 (09:21→18:09)
[2019-08-17] MEDS: SPIRONOLACTONE 25 MG TABLET (FP) PO SCH (09:21)
[2019-08-17] MEDS: PANTOPRAZOLE 40 MG TABLET (FP) PO SCH (09:21)
[2019-08-17] MEDS: APIXABAN 5 MG TABLET PO SCH ×2 (09:21→21:34)
[2019-08-17] MEDS: CYCLOBENZAPRINE HCL 10 MG TABLET (FP) PO SCH (09:21)
[2019-08-17] MEDS: POLYETHYLENE GLYCOL 3350 119 GM BTL PO SCH (09:22)
[2019-08-17] MEDS: oxyCODONE HCL 10 MG SUSTAINED ACTING TABLET PO SCH ×2 (09:22→21:33)
[2019-08-17] MEDS: LIDOCAINE 5% TOPICAL PATCH TP SCH (09:22)
[2019-08-17] MEDS: FAMOTIDINE 20 MG TABLET PO SCH ×2 (09:24→21:33)
--- NOTE | 2019-08-17 09:42 | PN ---
Progress Note, Physician History of Present Illness: 58-year-old black woman with history of dilated cardiomyopathy (severe systolic LV dysfunction),?nonobstructive CAD (pt states she had a coronary angiogram at ? [facility] approximately 6 months ago), morbid obesity, HTN, hyperlipidemia, iron -deficiency anemia, "borderline" DM, s/p pulmonary embolism, noncompliance with recent ED visit/elopement, now with increasing shortness of breath and chronic lower back and LE pain. 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 Andres Newman - Current Medication List Current Medications: Active Medications Acetaminophen (Tylenol -) 325 mg PO Q6H PRN PRN Reason: PAIN LEVEL 6-10 Last Admin: 08/16/19 14:03 Dose: 325 mg Apixaban (Eliquis -) 5 mg PO BID [facility] Last Admin: 08/17/19 09:21 Dose: 5 mg Atorvastatin Calcium (Lipitor -) 40 mg PO HS [facility] Last Admin: 08/16/19 21:05 Dose: 40 mg Carvedilol (Coreg -) 25 mg PO BID [facility] Last Admin: 08/17/19 09:21 Dose: 25 mg Cyclobenzaprine HCl (Flexeril -) 10 mg PO DAILY [facility] Last Admin: 08/17/19 09:21 Dose: 10 mg Docusate Sodium (Colace -) 100 mg PO TID [facility] Last Admin: 08/17/19 05:12 Dose: 100 mg Famotidine (Pepcid -) 20 mg PO BID [facility] Last Admin: 08/17/19 09:24 Dose: 20 mg Ferrous Sulfate (Feosol -) 325 mg PO DAILY [facility] Last Admin: 08/17/19 09:21 Dose: 325 mg Hydralazine HCl (Apresoline -) 10 mg PO BID [facility] Last Admin: 08/17/19 09:21 Dose: 10 mg Isosorbide Mononitrate (Imdur -) 30 mg PO DAILY [facility] Last Admin: 08/17/19 09:21 Dose: 30 mg Lidocaine (Lidoderm Patch -) 1 patch TP DAILY [facility] Last Admin: 08/17/19 09:22 Dose: 1 patch Miscellaneous (Lidoderm Patch Removal) 1 each MC DAILY@2200 [facility] Last Admin: 08/16/19 21:06 Dose: 1 each Oxycodone HCl (Oxycontin -) 10 mg PO BID [facility] Last Admin: 08/17/19 09:22 Dose: 10 mg Oxycodone HCl (Roxicodone -) 10 mg PO Q6H PRN PRN Reason: PAIN LEVEL 6-10 Last Admin: 08/17/19 04:34 Dose: 10 mg Pantoprazole Sodium (Protonix -) 40 mg PO DAILY [facility] Last Admin: 08/17/19 09:21 Dose: 40 mg Polyethylene Glycol (Miralax (For Daily Use) -) 17 gm PO DAILY [facility] Last Admin: 08/17/19 09:22 Dose: 17 gm Senna (Senna -) 2 tab PO HS [facility] Last Admin: 08/16/19 21:05 Dose: 2 tab Spironolactone (Aldactone -) 25 mg PO DAILY [facility] Last Admin: 08/17/19 09:21 Dose: 25 mg Venlafaxine HCl (Effexor -) 75 mg PO TIDCM [facility] Last Admin: 08/17/19 09:21 Dose: 75 mg Zolpidem Tartrate (Ambien -) 10 mg PO HS PRN PRN Reason: INSOMNIA Last Admin: 08/16/19 22:46 Dose: 10 mg - Objective Vital Signs: Vital Signs Temperature 98.7 F 08/17/19 05:17 Pulse Rate 86 08/17/19 05:17 Respiratory Rate 20 08/17/19 05:17 Blood Pressure 117/72 08/17/19 05:17 O2 Sat by Pulse Oximetry (%) 100 08/13/19 06:25 Eyes: Yes: WNL, Conjunctiva Clear, EOM Intact HENT: Yes: WNL, Atraumatic, Normocephalic Neck: Yes: WNL, Supple, Trachea Midline Cardiovascular: Yes: WNL, Regular Rate and Rhythm Respiratory: Yes: WNL, Regular, CTA Bilaterally Gastrointestinal: Yes: WNL, Normal Bowel Sounds Genitourinary: Yes: WNL Musculoskeletal: Yes: WNL Extremities: Yes: WNL Edema: No Integumentary: Yes: WNL Neurological: Yes: WNL, Alert, Oriented ...Motor Strength: WNL Psychiatric: Yes: WNL Labs: CBC, BMP 08/17/19 05:55 08/17/19 05:55 Assessment/Plan Problems (1) Systolic CHF Assessment/Plan: Continue carvedilol, sprionolactone, lisinopril (increased the latter to 10 mg daily); added hydralazine + Imdur (systolic CHF; HTN). Stop furosemide (no signs of acute CHF; rising BUN and Cr). I discussed pt with her doctor of optometry, Dr. Andres Newman. He plans to start Entresto as outpatient if her insurance allows (and assuming BUN/Cr and electrolytes also fall withn range). She has been noncompliant to office visits in the past, and changed doctor of optometry at one point, then returned to him. He believes there is CAD; awaits record of most recent angiogram (?[facility] 6 months ago).If ICD placement was discussed with her in the past; she did not agree to it at the time. He will discuss it again with her (she has an appointment scheduled with him for tomorrow; if she does not make this, another appointment may be scheduled for next week). From a cardiac standpoint, pt may be followed as an outpatient. If GI issues are stable, would continue workup for anemia as outpatient. If felt necessary to have EGD/colonoscopy this admission, there are no absolute contraindications to do so from a cardiac standpoint. Code(s): I50.20 - UNSPECIFIED SYSTOLIC (CONGESTIVE) HEART FAILURE (2) DM2 (diabetes mellitus, type 2) Assessment/Plan: Consider SGLT-2 inhibitor. Code(s): E11.9 - TYPE 2 DIABETES MELLITUS WITHOUT COMPLICATIONS Qualifiers: Diabetes mellitus care home insulin use: unspecified intermediate designer insulin use status Diabetes mellitus complication status: with other specified complication Qualified Code(s): E11.69 - Type 2 diabetes mellitus with other specified complication (3) Calculus of gallbladder without cholecystitis without obstruction Code(s): K80.20 - CALCULUS OF GALLBLADDER W/O CHOLECYSTITIS W/O OBSTRUCTION (4) Chronic pain Assessment/Plan: On multiple pain medications; she says she eventually wants to come off all of them. She would benefit from a painter ordnance. Code(s): G89.29 - OTHER CHRONIC PAIN (5) Eloped from emergency department Code(s): Z53.21 - PROC/TRTMT NOT CRD OUT D/T PT [place] BEF SEEN BY [facility] (6) History of pulmonary embolism Assessment/Plan: On apixaban. F/u records of event(s). Code(s): Z86.711 - PERSONAL HISTORY OF PULMONARY EMBOLISM (7) Depression Assessment/Plan: On Venlafaxine (Effexor). Code(s): F32.9 - MAJOR DEPRESSIVE DISORDER, SINGLE EPISODE, UNSPECIFIED (8) Essential hypertension Assessment/Plan: On carvedilol, lisinopril (dose increased), and spironolactone. Added hydralazine + Imdur. Code(s): I10 - ESSENTIAL (PRIMARY) HYPERTENSION (9) Morbid obesity Code(s): E66.01 - MORBID (SEVERE) OBESITY DUE TO EXCESS CALORIES (10) Opioid dependence with withdrawal Assessment/Plan: pain management team/MD would be beneficial. Code(s): F11.23 - OPIOID DEPENDENCE WITH WITHDRAWAL (11) [place] cardiac risk >20% in next 10 years Assessment/Plan: coronary artery evaluation was apparently done (coronary angiogram 2019); f/u findings, which pt reports did not require PCI. F/u lipids. Code(s): Z91.89 - OTH PERSONAL RISK FACTORS, NOT ELSEWHERE CLASSIFIED (12) Anemia Assessment/Plan: GI workup in progress. See "systolic CHF" for cardiac recommendations regarding GI procedures. Code(s): D64.9 - ANEMIA, UNSPECIFIED (13) Sleep apnea Assessment/Plan: + sleep studies this admission. F/u as outpatient for formal workup, Rx per assistant infant toddler teacher. Code(s): G47.30 - SLEEP APNEA, UNSPECIFIED
--- NOTE | 2019-08-17 11:03 | PN ---
Progress Note (short form) - Note Progress Note: PULMONARY Has sob on ambulation No acute events overnight. Sleep screen: AHI 61.5. vss/afeb Gen: NAD at rest Heart: RRR Lung: decreased breath sounds at the bases Abd: soft, nontender Ext: + edema labs/meds/notes reviewed A/P Acute on Chronic Systolic Heart Failure h/o PE Suspect Obstructive Sleep Apnea HTN Hyperlipidemia Morbid Obesity Noncompliance - Lasix - monitor urine output, creatinine - daily weights - encourage compliance with diet and medications - O2 to keep Spo2 >90% - continue anticoagulation - will need formal NPSG as outpatient Lencho MIR MD
--- NOTE | 2019-08-17 13:22 | PN ---
Physical Exam: SUBJECTIVE: Patient seen and examined. She says she feels SOB when she walks. OBJECTIVE: Vital Signs Period Temp Pulse Resp BP Sys/Vilchis Pulse Ox Last 24 Hr 97.9 F-98.7 F 74-88 - 112-143/65-76 GENERAL: The patient is awake, alert, and fully oriented, in no acute distress. LUNGS: Breath sounds equal, clear to auscultation bilaterally, no wheezes, no crackles, no accessory muscle use. HEART: Regular rate and rhythm, S1, S2 without murmur, rub or gallop. ABDOMEN: Obese, soft, nontender, nondistended, normoactive bowel sounds, no guarding, no rebound, no hepatosplenomegaly, no masses. EXTREMITIES: 2+ pulses, warm, well-perfused, trace edema. Laboratory Results - last 24 hr 08/17/19 08/17/19 05:55 05:55 WBC 7.2 RBC 3.54 L Hgb 9.0 L Hct 28.3 L MCV 80.0 MCH 25.4 L MCHC 31.8 L RDW 19.2 H Plt Count 372 MPV 7.4 L Absolute Neuts (auto) 4.1 Neutrophils % 57.3 Lymphocytes % 27.7 Monocytes % 9.4 Eosinophils % 4.9 H Basophils % 0.7 Nucleated RBC % 0 Sodium 137 Potassium 4.4 Chloride 104 Carbon Dioxide 26 Anion Gap 7 L BUN 35.2 H Creatinine 1.5 H Est GFR (CKD-EPI)AfAm 43.74 Est GFR (CKD-EPI)NonAf 37.74 Random Glucose 93 Calcium 8.9 Phosphorus 4.0 Magnesium 2.5 H Total Bilirubin 0.3 AST 13 L ALT 23 Alkaline Phosphatase 89 Total Protein 7.4 Albumin 3.4 Active Medications Generic Name Dose Route Start Last Admin Trade Name Freq PRN Reason Stop Dose Admin Acetaminophen 325 mg 08/14/19 08:22 08/16/19 14:03 Tylenol - PO 325 mg Q6H PRN Administration PAIN LEVEL 6-10 Apixaban 5 mg 08/13/19 10:00 08/17/19 09:21 Eliquis - PO 5 mg BID EMILI Administration Atorvastatin Calcium 40 mg 08/13/19 22:00 08/16/19 21:05 Lipitor - PO 40 mg HS EMILI Administration Carvedilol 25 mg 08/13/19 10:00 08/17/19 09:21 Coreg - PO 25 mg BID EMILI Administration Cyclobenzaprine HCl 10 mg 08/13/19 10:00 08/17/19 09:21 Flexeril - PO 10 mg DAILY EMILI Administration Docusate Sodium 100 mg 08/13/19 06:00 08/17/19 05:12 Colace - PO 100 mg TID EMILI Administration Famotidine 20 mg 08/13/19 10:00 08/17/19 09:24 Pepcid - PO 20 mg BID EMILI Administration Ferrous Sulfate 325 mg 08/13/19 10:00 08/17/19 09:21 Feosol - PO 325 mg DAILY EMILI Administration Hydralazine HCl 10 mg 08/13/19 20:30 08/17/19 09:21 Apresoline - PO 10 mg BID EMILI Administration Isosorbide Mononitrate 30 mg 08/13/19 20:15 08/17/19 09:21 Imdur - PO 30 mg DAILY EMILI Administration Lidocaine 1 patch 08/13/19 10:00 08/17/19 09:22 Lidoderm Patch - TP 1 patch DAILY EMILI Administration Miscellaneous 1 each 08/13/19 22:00 08/16/19 21:06 Lidoderm Patch Removal MC 1 each DAILY@2200 EMILI Administration Oxycodone HCl 10 mg 08/13/19 10:00 08/17/19 09:22 Oxycontin - PO 10 mg BID EMILI Administration Oxycodone HCl 10 mg 08/14/19 08:21 08/17/19 04:34 Roxicodone - PO 10 mg Q6H PRN Administration PAIN LEVEL 6-10 Pantoprazole Sodium 40 mg 08/13/19 10:00 08/17/19 09:21 Protonix - PO 40 mg DAILY EMILI Administration Polyethylene Glycol 17 gm 08/13/19 10:00 08/17/19 09:22 Miralax (For Daily Use) - PO 17 gm DAILY EMILI Administration Senna 2 tab 08/13/19 22:00 08/16/19 21:05 Senna - PO 2 tab HS EMILI Administration Spironolactone 25 mg 08/13/19 10:00 08/17/19 09:21 Aldactone - PO 25 mg DAILY EMILI Administration Venlafaxine HCl 75 mg 08/14/19 08:00 08/17/19 12:44 Effexor - PO 75 mg TIDCM EMILI Administration Zolpidem Tartrate 10 mg 08/13/19 22:00 08/16/19 22:46 Ambien - PO 10 mg HS PRN Administration INSOMNIA ASSESSMENT/PLAN: This is a 58 year old woman with a history of HTN, hyperlipidemia, chronic systolic heart failure, PE (on eliquis), chronic LLE pain, GERD who presented to the ED with shortness of breath. 1. Acute on chronic systolic heart failure - Lasix, lisinopril held secondary to TEDDY - Continue Aldactone, Coreg 2. Hypertensive urgency - Resolved 3. 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 HTN, uncontrolled - Continue Coreg, Hydralazine, Aldactone 5. Hyperlipidemia - Continue Lipitor 6. Acute kidney injury - Improving - Lasix, lisinopril held - Continue to monitor creatinine 7. Stage 3 CKD 8. Chronic LLE pain - Continue OxyContin, Lidoderm, Effexor, Flexeril, oxycodone as needed 9. GERD - Continue Protonix, Pepcid 10. Morbid obesity with BMI 43.7 11. Iron deficiency anemia - Hgb stable - Continue ferrous sulfate - Outpatient GI evaluation 12. History of PE - Continue Eliquis 13. Possible obesity hypoventilation syndrome/AMANDA - Outpatient sleep study 14. Disposition - Will likely need short-term rehab at discharge Visit type - Emergency Visit Emergency Visit: Yes ED Registration Date: 08/13/19 Care time: The patient presented to the Emergency Department on the above date and was hospitalized for further evaluation of their emergent condition. - New Patient This patient is new to me today: Yes Date on this admission: 08/17/19 - Critical Care Critical Care patient: No - Discharge Referral Referred to [facility] Med P.C.: No
--- NOTE | 2019-08-17 16:58 | PN ---
Progress Note, Physician History of Present Illness: Pt seen and examined at bedside. She is awake and alert. She denies shortness of breath or lower ext edema. - Current Medication List Current Medications: Active Medications Acetaminophen (Tylenol -) 325 mg PO Q6H PRN PRN Reason: PAIN LEVEL 6-10 Last Admin: 08/16/19 14:03 Dose: 325 mg Apixaban (Eliquis -) 5 mg PO BID REPLACED BY [facility] Last Admin: 08/17/19 09:21 Dose: 5 mg Atorvastatin Calcium (Lipitor -) 40 mg PO HS REPLACED BY [facility] Last Admin: 08/16/19 21:05 Dose: 40 mg Carvedilol (Coreg -) 25 mg PO BID REPLACED BY [facility] Last Admin: 08/17/19 09:21 Dose: 25 mg Cyclobenzaprine HCl (Flexeril -) 10 mg PO DAILY REPLACED BY [facility] Last Admin: 08/17/19 09:21 Dose: 10 mg Docusate Sodium (Colace -) 100 mg PO TID REPLACED BY [facility] Last Admin: 08/17/19 14:07 Dose: 100 mg Famotidine (Pepcid -) 20 mg PO BID REPLACED BY [facility] Last Admin: 08/17/19 09:24 Dose: 20 mg Ferrous Sulfate (Feosol -) 325 mg PO DAILY REPLACED BY [facility] Last Admin: 08/17/19 09:21 Dose: 325 mg Hydralazine HCl (Apresoline -) 10 mg PO BID REPLACED BY [facility] Last Admin: 08/17/19 09:21 Dose: 10 mg Isosorbide Mononitrate (Imdur -) 30 mg PO DAILY REPLACED BY [facility] Last Admin: 08/17/19 09:21 Dose: 30 mg Lidocaine (Lidoderm Patch -) 1 patch TP DAILY REPLACED BY [facility] Last Admin: 08/17/19 09:22 Dose: 1 patch Miscellaneous (Lidoderm Patch Removal) 1 each MC DAILY@2200 REPLACED BY [facility] Last Admin: 08/16/19 21:06 Dose: 1 each Oxycodone HCl (Oxycontin -) 10 mg PO BID REPLACED BY [facility] Last Admin: 08/17/19 09:22 Dose: 10 mg Oxycodone HCl (Roxicodone -) 10 mg PO Q6H PRN PRN Reason: PAIN LEVEL 6-10 Last Admin: 08/17/19 15:40 Dose: 10 mg Pantoprazole Sodium (Protonix -) 40 mg PO DAILY REPLACED BY [facility] Last Admin: 08/17/19 09:21 Dose: 40 mg Polyethylene Glycol (Miralax (For Daily Use) -) 17 gm PO DAILY REPLACED BY [facility] Last Admin: 08/17/19 09:22 Dose: 17 gm Senna (Senna -) 2 tab PO HS REPLACED BY [facility] Last Admin: 08/16/19 21:05 Dose: 2 tab Spironolactone (Aldactone -) 25 mg PO DAILY REPLACED BY [facility] Last Admin: 08/17/19 09:21 Dose: 25 mg Venlafaxine HCl (Effexor -) 75 mg PO TIDCM REPLACED BY [facility] Last Admin: 08/17/19 12:44 Dose: 75 mg Zolpidem Tartrate (Ambien -) 10 mg PO HS PRN PRN Reason: INSOMNIA Last Admin: 08/16/19 22:46 Dose: 10 mg - Objective Vital Signs: Vital Signs Temperature 98.4 F 08/17/19 14:00 Pulse Rate 79 08/17/19 14:00 Respiratory Rate 08/17/19 14:00 Blood Pressure 97/60 08/17/19 14:00 O2 Sat by Pulse Oximetry (%) 100 08/13/19 06:25 Constitutional: Yes: Calm Eyes: Yes: Conjunctiva Clear HENT: Yes: Atraumatic Neck: Yes: Supple Cardiovascular: Yes: S1, S2 Respiratory: Yes: CTA Bilaterally Gastrointestinal: Yes: Soft Genitourinary: Yes: WNL Musculoskeletal: Yes: WNL Edema: No Neurological: Yes: Oriented Psychiatric: Yes: Oriented Labs: CBC, BMP 08/17/19 05:55 08/17/19 05:55 - ....Imaging Chest X-ray: Report Reviewed Assessment/Plan Current Medications Generic Name Dose Route Start Last Admin Trade Name Freq PRN Reason Stop Dose Admin Acetaminophen 325 mg 08/14/19 08:22 08/16/19 14:03 Tylenol - PO 325 mg Q6H PRN Administration PAIN LEVEL 6-10 Apixaban 5 mg 08/13/19 10:00 08/17/19 09:21 Eliquis - PO 5 mg BID EMILI Administration Atorvastatin Calcium 40 mg 08/13/19 22:00 08/16/19 21:05 Lipitor - PO 40 mg HS REPLACED BY [facility] Administration Carvedilol 25 mg 08/13/19 10:00 08/17/19 09:21 Coreg - PO 25 mg BID EMILI Administration Cyclobenzaprine HCl 10 mg 08/13/19 10:00 08/17/19 09:21 Flexeril - PO 10 mg DAILY EMILI Administration Docusate Sodium 100 mg 08/13/19 06:00 08/17/19 14:07 Colace - PO 100 mg TID EMILI Administration Famotidine 20 mg 08/13/19 10:00 08/17/19 09:24 Pepcid - PO 20 mg BID EMILI Administration Ferrous Sulfate 325 mg 08/13/19 10:00 08/17/19 09:21 Feosol - PO 325 mg DAILY EMILI Administration Hydralazine HCl 10 mg 08/13/19 20:30 08/17/19 09:21 Apresoline - PO 10 mg BID EMILI Administration Isosorbide Mononitrate 30 mg 08/13/19 20:15 08/17/19 09:21 Imdur - PO 30 mg DAILY EMILI Administration Lidocaine 1 patch 08/13/19 10:00 08/17/19 09:22 Lidoderm Patch - TP 1 patch DAILY EMILI Administration Miscellaneous 1 each 08/13/19 22:00 08/16/19 21:06 Lidoderm Patch Removal MC 1 each DAILY@2200 EMILI Administration Oxycodone HCl 10 mg 08/13/19 10:00 08/17/19 09:22 Oxycontin - PO 10 mg BID EMILI Administration Oxycodone HCl 10 mg 08/14/19 08:21 08/17/19 15:40 Roxicodone - PO 10 mg Q6H PRN Administration PAIN LEVEL 6-10 Pantoprazole Sodium 40 mg 08/13/19 10:00 08/17/19 09:21 Protonix - PO 40 mg DAILY EMILI Administration Polyethylene Glycol 17 gm 08/13/19 10:00 08/17/19 09:22 Miralax (For Daily Use) - PO 17 gm DAILY EMILI Administration Senna 2 tab 08/13/19 22:00 08/16/19 21:05 Senna - PO 2 tab HS EMILI Administration Spironolactone 25 mg 08/13/19 10:00 08/17/19 09:21 Aldactone - PO 25 mg DAILY EMILI Administration Venlafaxine HCl 75 mg 08/14/19 08:00 08/17/19 12:44 Effexor - PO 75 mg TIDCM EMILI Administration Zolpidem Tartrate 10 mg 08/13/19 22:00 08/16/19 22:46 Ambien - PO 10 mg HS PRN Administration INSOMNIA 1. TEDDY 2. CHF 3. Hypertension 4. Hx of PE on A/C 5. 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
[2019-08-17] MEDS: SENNOSIDES 8.6MG TABLET (FP) PO SCH (21:33)
[2019-08-17] MEDS: ATORVASTATIN CA 40 MG TABLET (FP) PO SCH (21:33)
[2019-08-17] MEDS: LIDOCAINE PATCH REMOVAL MC SCH (21:35)
[2019-08-17] MEDS: ACETAMINOPHEN 325 MG TABLET (FP) PO PRN (21:35)
[2019-08-17] MEDS: ZOLPIDEM TARTRATE 5 MG TABLET PO PRN (23:17)
[2019-08-18] MEDS: oxyCODONE HCL 5 MG TABLET PO PRN ×2 (02:44→15:48)
[2019-08-18] MEDS: ACETAMINOPHEN 325 MG TABLET (FP) PO PRN ×2 (02:45→21:15)
[2019-08-18] MEDS: DOCUSATE SODIUM 100 MG CAPSULE (FP) PO SCH ×3 (05:27→21:15)
[2019-08-18 07:20] LABS: CALCIUM 9.1 mg/dL (8.5-10.1); CREATININE 1.3 mg/dL (0.55-1.3); MAGNESIUM 2.6 mg/dL (1.8-2.4); POTASSIUM 4.5 mmol/L (3.5-5.1)
[2019-08-18 07:35] LABS: HEMOGLOBIN 9.1 GM/dL (10.7-15.3); MCH 25.2 pg (25.7-33.7); MCHC 31.3 g/dl (32.0-36.0); MEAN CELL VOLUME 80.5 fl (80-96); MEAN PLT VOLUME 7.4 fl (7.5-11.1); PLATELET COUNT 378 K/MM3 (134-434); RBC 3.61 M/mm3 (3.60-5.2); RDW 19.1 % (11.6-15.6); WHITE BLOOD COUNT 7.8 K/mm3 (4.0-10.0)
--- NOTE | 2019-08-18 07:51 | PN ---
Progress Note, Physician History of Present Illness: 58-year-old black woman with history of dilated cardiomyopathy (severe systolic LV dysfunction),?nonobstructive CAD (pt states she had a coronary angiogram at ? [facility] approximately 6 months ago), morbid obesity, HTN, hyperlipidemia, iron -deficiency anemia, "borderline" DM, s/p pulmonary embolism, noncompliance with recent ED visit/elopement, now with increasing shortness of breath and chronic lower back and LE pain. 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 Andres Newman - Current Medication List Current Medications: Active Medications Acetaminophen (Tylenol -) 325 mg PO Q6H PRN PRN Reason: PAIN LEVEL 6-10 Last Admin: 08/18/19 02:45 Dose: 325 mg Apixaban (Eliquis -) 5 mg PO BID [facility] Last Admin: 08/17/19 21:34 Dose: 5 mg Atorvastatin Calcium (Lipitor -) 40 mg PO HS [facility] Last Admin: 08/17/19 21:33 Dose: 40 mg Carvedilol (Coreg -) 25 mg PO BID [facility] Last Admin: 08/17/19 21:35 Dose: 25 mg Cyclobenzaprine HCl (Flexeril -) 10 mg PO DAILY [facility] Last Admin: 08/17/19 09:21 Dose: 10 mg Docusate Sodium (Colace -) 100 mg PO TID [facility] Last Admin: 08/18/19 05:27 Dose: 100 mg Famotidine (Pepcid -) 20 mg PO BID [facility] Last Admin: 08/17/19 21:33 Dose: 20 mg Ferrous Sulfate (Feosol -) 325 mg PO DAILY [facility] Last Admin: 08/17/19 09:21 Dose: 325 mg Hydralazine HCl (Apresoline -) 10 mg PO BID [facility] Last Admin: 08/17/19 21:35 Dose: Not Given Isosorbide Mononitrate (Imdur -) 30 mg PO DAILY [facility] Last Admin: 08/17/19 09:21 Dose: 30 mg Lidocaine (Lidoderm Patch -) 1 patch TP DAILY [facility] Last Admin: 08/17/19 09:22 Dose: 1 patch Miscellaneous (Lidoderm Patch Removal) 1 each MC DAILY@2200 [facility] Last Admin: 08/17/19 21:35 Dose: 1 each Oxycodone HCl (Oxycontin -) 10 mg PO BID [facility] Last Admin: 08/17/19 21:33 Dose: 10 mg Oxycodone HCl (Roxicodone -) 10 mg PO Q6H PRN PRN Reason: PAIN LEVEL 6-10 Last Admin: 08/18/19 02:44 Dose: 10 mg Pantoprazole Sodium (Protonix -) 40 mg PO DAILY [facility] Last Admin: 08/17/19 09:21 Dose: 40 mg Polyethylene Glycol (Miralax (For Daily Use) -) 17 gm PO DAILY [facility] Last Admin: 08/17/19 09:22 Dose: 17 gm Senna (Senna -) 2 tab PO HS [facility] Last Admin: 08/17/19 21:33 Dose: 2 tab Spironolactone (Aldactone -) 25 mg PO DAILY [facility] Last Admin: 08/17/19 09:21 Dose: 25 mg Venlafaxine HCl (Effexor -) 75 mg PO TIDCM [facility] Last Admin: 08/17/19 18:09 Dose: 75 mg Zolpidem Tartrate (Ambien -) 10 mg PO HS PRN PRN Reason: INSOMNIA Last Admin: 08/17/19 23:17 Dose: 10 mg - Objective Vital Signs: Vital Signs Temperature 98.5 F 08/18/19 05:44 Pulse Rate 85 08/18/19 05:44 Respiratory Rate 20 08/18/19 05:44 Blood Pressure 135/71 08/18/19 05:44 O2 Sat by Pulse Oximetry (%) 100 08/13/19 06:25 Eyes: Yes: WNL, Conjunctiva Clear, EOM Intact HENT: Yes: WNL, Atraumatic, Normocephalic Neck: Yes: WNL, Supple, Trachea Midline Cardiovascular: Yes: WNL, Regular Rate and Rhythm Respiratory: Yes: WNL, Regular, CTA Bilaterally Gastrointestinal: Yes: WNL, Normal Bowel Sounds Genitourinary: Yes: WNL Musculoskeletal: Yes: WNL Extremities: Yes: WNL Edema: No Integumentary: Yes: WNL Neurological: Yes: WNL, Alert, Oriented ...Motor Strength: WNL Psychiatric: Yes: WNL Labs: CBC, BMP 08/18/19 05:46 Assessment/Plan Problems (1) Systolic CHF Assessment/Plan: Continue carvedilol, sprionolactone, lisinopril (increased the latter to 10 mg daily); added hydralazine + Imdur (systolic CHF; HTN). Stop furosemide (no signs of acute CHF; rising BUN and Cr). I discussed pt with her homicide squad lieutenant, Dr. Andres Newman. He plans to start Entresto as outpatient if her insurance allows (and assuming BUN/Cr and electrolytes also fall withn range). She has been noncompliant to office visits in the past, and changed homicide squad lieutenant at one point, then returned to him. He believes there is CAD; awaits record of most recent angiogram (?[facility] 6 months ago).If ICD placement was discussed with her in the past; she did not agree to it at the time. He will discuss it again with her (she has an appointment scheduled with him for tomorrow; if she does not make this, another appointment may be scheduled for next week). From a cardiac standpoint, pt may be followed as an outpatient. If GI issues are stable, would continue workup for anemia as outpatient. If felt necessary to have EGD/colonoscopy this admission, there are no absolute contraindications to do so from a cardiac standpoint. Code(s): I50.20 - UNSPECIFIED SYSTOLIC (CONGESTIVE) HEART FAILURE (2) DM2 (diabetes mellitus, type 2) Assessment/Plan: Consider SGLT-2 inhibitor. Code(s): E11.9 - TYPE 2 DIABETES MELLITUS WITHOUT COMPLICATIONS Qualifiers: Diabetes mellitus alf insulin use: unspecified alf insulin use status Diabetes mellitus complication status: with other specified complication Qualified Code(s): E11.69 - Type 2 diabetes mellitus with other specified complication (3) Calculus of gallbladder without cholecystitis without obstruction Code(s): K80.20 - CALCULUS OF GALLBLADDER W/O CHOLECYSTITIS W/O OBSTRUCTION (4) Chronic pain Assessment/Plan: On multiple pain medications; she says she eventually wants to come off all of them. She would benefit from a paint trimmer pipe bowls. Code(s): G89.29 - OTHER CHRONIC PAIN (5) Eloped from emergency department Code(s): Z53.21 - PROC/TRTMT NOT CRD OUT D/T PT LV [facility]F SEEN BY [facility] (6) History of pulmonary embolism Assessment/Plan: On apixaban. F/u records of event(s). Code(s): Z86.711 - PERSONAL HISTORY OF PULMONARY EMBOLISM (7) Depression Assessment/Plan: On Venlafaxine (Effexor). Code(s): F32.9 - MAJOR DEPRESSIVE DISORDER, SINGLE EPISODE, UNSPECIFIED (8) Essential hypertension Assessment/Plan: On carvedilol, lisinopril (dose increased), and spironolactone. Added hydralazine + Imdur. Code(s): I10 - ESSENTIAL (PRIMARY) HYPERTENSION (9) Morbid obesity Code(s): E66.01 - MORBID (SEVERE) OBESITY DUE TO EXCESS CALORIES (10) Opioid dependence with withdrawal Assessment/Plan: pain management team/MD would be beneficial. Code(s): F11.23 - OPIOID DEPENDENCE WITH WITHDRAWAL (11) [place] cardiac risk >20% in next 10 years Assessment/Plan: coronary artery evaluation was apparently done (coronary angiogram 2019); f/u findings, which pt reports did not require PCI. F/u lipids. Code(s): Z91.89 - OTH PERSONAL RISK FACTORS, NOT ELSEWHERE CLASSIFIED (12) Anemia Assessment/Plan: GI workup in progress. See "systolic CHF" for cardiac recommendations regarding GI procedures. Code(s): D64.9 - ANEMIA, UNSPECIFIED (13) Sleep apnea Assessment/Plan: + sleep studies this admission. F/u as outpatient for formal workup, Rx per windows application packager. Code(s): G47.30 - SLEEP APNEA, UNSPECIFIED
[2019-08-18] MEDS ORDERED: PT OWN MED DRAWER 7, Y5N ONE ×2 (08:13→08:55)
[2019-08-18] MEDS: ISOSORBIDE MONONITRATE 30 MG TAB.SR.24H (FP) PO SCH (09:03)
[2019-08-18] MEDS: APIXABAN 5 MG TABLET PO SCH ×2 (09:03→21:13)
[2019-08-18] MEDS: CARVEDILOL 25 MG TABLET (FP) PO SCH ×2 (09:03→21:13)
[2019-08-18] MEDS: PANTOPRAZOLE 40 MG TABLET (FP) PO SCH (09:03)
[2019-08-18] MEDS: hydrALAZINE HCL 10 MG TABLET PO SCH ×2 (09:03→21:13)
[2019-08-18] MEDS: VENLAFAXINE HCL 75 MG TABLET PO SCH ×3 (09:03→16:42)
[2019-08-18] MEDS: CYCLOBENZAPRINE HCL 10 MG TABLET (FP) PO SCH (09:04)
[2019-08-18] MEDS: LIDOCAINE 5% TOPICAL PATCH TP SCH (09:04)
[2019-08-18] MEDS: FERROUS SO4 325 MG TABLET (FP) PO SCH (09:04)
[2019-08-18] MEDS: oxyCODONE HCL 10 MG SUSTAINED ACTING TABLET PO SCH ×2 (09:04→21:13)
[2019-08-18] MEDS: SPIRONOLACTONE 25 MG TABLET (FP) PO SCH (09:04)
[2019-08-18] MEDS: POLYETHYLENE GLYCOL 3350 119 GM BTL PO SCH (09:04)
--- NOTE | 2019-08-18 09:19 | PN ---
Physical Exam: SUBJECTIVE: Patient seen and examined at the bedside. States she felt better, had improved breathing, and less pain. Endorsed some dizziness after taking her pain medications. Endorsed good appetite. Noted that she wants to become more compliant with her medications. Denied cp, abd pain, n/v/c/d, headaches, fever, chills, focal weakness, numbness, tingling. OBJECTIVE: Vital Signs Period Temp Pulse Resp BP Sys/Vilchis Pulse Ox Last 24 Hr 98.3 F-98.7 F 75-85 20-20 97-135/60-80 GENERAL: The patient is awake, alert, and fully oriented, in no acute distress. HEAD: Normal with no signs of trauma. EYES: PERRL, extraocular movements intact, sclera anicteric, conjunctiva clear. ENT: Oropharynx clear without exudates, moist mucous membranes. NECK: Trachea midline, no noted JVD. LUNGS: Decreased breath sounds bilaterally, trace bilateral crackles, no noted wheezes, no accessory muscle use. HEART: Regular rate and rhythm, S1, S2 without murmur, rub. ABDOMEN: Soft, nontender, nondistended, normoactive bowel sounds, no guarding, no rebound, no masses. EXTREMITIES: 2+ pulses, warm, well-perfused, trace peripheral edema. NEUROLOGICAL: Cranial nerves II through XII grossly intact. 5/5 muscle strength bilaterally upper and lower extremities. PSYCH: Normal mood and affect. SKIN: Warm, dry, normal turgor, no rashes or lesions noted. Laboratory Results - last 24 hr 08/15/19 08/18/19 08/18/19 12:10 05:46 05:46 WBC 7.8 RBC 3.61 Hgb 9.1 L Hct 29.0 L MCV 80.5 MCH 25.2 L MCHC 31.3 L RDW 19.1 H Plt Count 378 MPV 7.4 L Sodium 138 Potassium 4.5 Chloride 107 Carbon Dioxide 26 Anion Gap 6 L BUN 26.0 H Creatinine 1.3 Est GFR (CKD-EPI)AfAm 52.00 Est GFR (CKD-EPI)NonAf 44.87 Random Glucose 92 Calcium 9.1 Magnesium 2.6 H Urine Eosinophils None seen Active Medications Generic Name Dose Route Start Last Admin Trade Name Freq PRN Reason Stop Dose Admin Acetaminophen 325 mg 08/14/19 08:22 08/18/19 02:45 Tylenol - PO 325 mg Q6H PRN Administration PAIN LEVEL 6-10 Apixaban 5 mg 08/13/19 10:00 08/18/19 09:03 Eliquis - PO 5 mg BID EMILI Administration Atorvastatin Calcium 40 mg 08/13/19 22:00 08/17/19 21:33 Lipitor - PO 40 mg HS EMILI Administration Carvedilol 25 mg 08/13/19 10:00 08/18/19 09:03 Coreg - PO 25 mg BID EMILI Administration Cyclobenzaprine HCl 10 mg 08/13/19 10:00 08/18/19 09:04 Flexeril - PO 10 mg DAILY EMILI Administration Docusate Sodium 100 mg 08/13/19 06:00 08/18/19 05:27 Colace - PO 100 mg TID EMILI Administration Famotidine 20 mg 08/13/19 10:00 08/17/19 21:33 Pepcid - PO 20 mg BID EMILI Administration Ferrous Sulfate 325 mg 08/13/19 10:00 08/18/19 09:04 Feosol - PO 325 mg DAILY EMILI Administration Hydralazine HCl 10 mg 08/13/19 20:30 08/18/19 09:03 Apresoline - PO 10 mg BID EMILI Administration Isosorbide Mononitrate 30 mg 08/13/19 20:15 08/18/19 09:03 Imdur - PO 30 mg DAILY EMILI Administration Lidocaine 1 patch 08/13/19 10:00 08/18/19 09:04 Lidoderm Patch - TP 1 patch DAILY EMILI Administration Miscellaneous 1 each 08/13/19 22:00 08/17/19 21:35 Lidoderm Patch Removal MC 1 each DAILY@2200 EMILI Administration Oxycodone HCl 10 mg 08/13/19 10:00 08/18/19 09:04 Oxycontin - PO 10 mg BID EMILI Administration Oxycodone HCl 10 mg 08/14/19 08:21 08/18/19 02:44 Roxicodone - PO 10 mg Q6H PRN Administration PAIN LEVEL 6-10 Pantoprazole Sodium 40 mg 08/13/19 10:00 08/18/19 09:03 Protonix - PO 40 mg DAILY EMILI Administration Polyethylene Glycol 17 gm 08/13/19 10:00 08/18/19 09:04 Miralax (For Daily Use) - PO 17 gm DAILY EMILI Administration Senna 2 tab 08/13/19 22:00 08/17/19 21:33 Senna - PO 2 tab HS EMILI Administration Spironolactone 25 mg 08/13/19 10:00 08/18/19 09:04 Aldactone - PO 25 mg DAILY EMILI Administration Venlafaxine HCl 75 mg 08/14/19 08:00 08/18/19 09:03 Effexor - PO 75 mg TIDCM EMILI Administration Zolpidem Tartrate 10 mg 08/13/19 22:00 08/17/19 23:17 Ambien - PO 10 mg HS PRN Administration INSOMNIA ASSESSMENT/PLAN: Casey Greenwood is a 58 year old female with a past medical history of CHF, PE (on eliquis), HTN, HLD, chronic LLE pain, GERD admitted for shortness of breath. Shortness of breath - previous echo (06/25): EF of 25% - CTA: no evidence of PE, with noted pericardial effusion - echo noting severely reduced LV function, severe global hypokinesis of left ventricle, mild pericardial effusion, mild tricuspid regurg, mild to mod mitral regurg - Duplex: no evidence of DVT - no clinical signs of CHF - Lasix 40mg daily, home dose as confirmed with previous cardiology notes, holding now as per cardiology, will restart upon discharge - Strict I&O's, daily weights, restricted fluid intake - Tele monitoring - Cardiology consultation, recs appreciated - Respiratory consultation, recs appreciated, sleep apnea screening, will require full sleep study outpatient - repeat CXR with no infiltrates or evidence of heart failure Microcytic anemia - iron studies noting iron deficiency anemia - continue home ferrous sulfate - will need outpatient GI followup, spoken with Dr. Dumont and patient can f/u outpatient if no active bleed noted - FOBT negative Hypetensive urgency - currently resolved - Will cont pt's home meds: Coreg 25mg BID, Aldactone 25mg daily - lisinopril 10mg daily, held in the setting of TEDDY, will restart upon discharge - Discussed importance of weight loss, salt restriction, and exercise - EKG with noted T wave inversions present on previous EKG - repeat EKG with LVH, T wave inversions in lateral leads TEDDY - improved CRE, today 1.3 - likely combination of NSAID use, diuretic use, contrast - nephrology consulted, recs appreciated - holding diuretics - continue to monitor HLD - elevated chol, LDL - Lipitor 40mg Hx of PE - Cont home eliquis 5mg BID Hx of CHF/Dilated cardiomyopathy - on coreg, aldactone, lisinopril - as per obtained records is considered for ICD per her special trackwork blacksmith, has had cardiac cath, records from [facility] pending - cath report obtained noting mild diffuse disease in LAD, no other vessel obstruction. Venticulogram noting severely hypokinetic anterobasal and posterobasal segments, mildly hypokinetic anterolateral, apical, and diaphreagmatic segments. LVEF 35% - has lifevest and non-compliant with it, will have it brought to her in the hospital before discharge to ensure safe discharge - outpatient special trackwork blacksmith likely starting Entresto for patient, will f/u with outpatient cardiology Chronic LLE pain - Cont Oxy 10mg bid, Flexeril 10mg, Neurontin 400mg Q8H, lidoderm patch, Percocet 10-325mg q6h prn as confirmed with pharmacy and ISTOP - L spine MRI noted cannot be performed as inpatient for chronic back pain, will need to have scan as outpatient - patient now saying her pain is at baseline - will need f/u with her pain management physician Morbid Obestity - pulmonology consultation - ABG with no noted retention - AHI 61.5, will need full sleep study as outpatient DVT ppx - On eliquis FEN - No standing fluids, caution with fluid in setting of CHF - continue to monitor electrolytes and replete as necessary - Salt-controlled diet, consult electronic lab technician Dispo - continue to monitor on telemetry - agreeable to SNF, pending placement Visit type - Emergency Visit Emergency Visit: Yes ED Registration Date: 08/13/19 Care time: The patient presented to the Emergency Department on the above date and was hospitalized for further evaluation of their emergent condition. - New Patient This patient is new to me today: No - Critical Care Critical Care patient: No
--- NOTE | 2019-08-18 09:29 | PN ---
Teaching Attending Note Name of Resident: Anthony Dixon ATTENDING PHYSICIAN STATEMENT I saw and evaluated the patient. I reviewed the resident's note and discussed the case with the resident. I agree with the resident's findings and plan as documented. Per cardiology no absolute contraindication to inpatient scope. Will touch base with GI; if they wish to do it will convert to hep ggt and DC prior to procedure per protocol and transition back to home meds. Once renal function stabilizes and her sister brings her life vest to the hospital, she will likely be able to be discharged pending elucidation of the potential gastroenterology study. No further complaints, patient is hemodynamically stable. Agree with subjective information is provided in the resident note From a cardiac standpoint, pt may be followed as an outpatient. If GI issues are stable, would continue workup for anemia as outpatient. If felt necessary to have EGD/colonoscopy this admission, there are no absolute contraindications to do so from a cardiac standpoint. Objective: VS, labs, imaging reviewed NAD, AAO, resting comfortably in bed. RRR s1/2 no mgr Normal muscle tone, moves all 5 extremities with normal apparent strength Neck is supple, trachea midline, no shayla LN Lungs poor effort, mild crackles with sym expansion NT ND +BS no shayla organomegaly CN2-12 wnl; no FND NC AT EOMI PERRLA Normal mood, appropriate behavior, euthymic affect No skin breakdown or rashes noted A/P: Problems include: Acute on chronic systolic heart failure, NYHA III symptoms at baseline, currently NYHA III symptomatology. Echocardiogram noted. Continuing Aldactone and Coreg. Resume Lasix when okay with nephrology given her underlying renal dysfunction. Lisinopril is currently being held due to the TEDDY. Her photographer still is intending to start her on Entresto as an outpatient. She has a LifeVest at home and her family is bringing it in. She remains on telemetry. She has a high risk of sudden cardiac . Hypertensive urgency, resolved Uncontrolled hypertension history, as per above History of nonischemic cardiomyopathy contributing to the CHF. Acute kidney injury on stage III CKD, holding Lasix and lisinopril per nephrology. Follow-up on labs today and will discuss with Dr. Stacey Lo Monitoring BMP and urine output. Chronic lower extremity pain, I stop was checked. She will continue on OxyContin, Lidoderm, Effexor, Flexeril. She will continue on her long-acting opioids. Chronic GERD, continuing home medications, and no new issues. Morbid obesity BMI is 43.5, counseling provided Iron deficiency anemia, continue to trend. History of pulmonary embolism, on Eliquis. Continue. No new issues. AMANDA/obesity hypoventilation syndrome with planned full outpatient sleep study. Degenerative joint disease Prior CT findings (nonurgent FU with Dr. Pierre) Disposition is pending improvement of the renal function with SNF placement. Patient walked 50 feet and admission but did have falls and is short of breath with mild exertion secondary to her advanced CHF. On Monday, August 16 she only ambulated 30 feet twice. Due to this, she will require placement. Working with social work. She will require outpatient follow-up with gastroenterology. Full code. Full Code
[2019-08-18] MEDS: FAMOTIDINE 20 MG TABLET PO SCH ×2 (10:34→21:14)
--- NOTE | 2019-08-18 11:40 | PN ---
Progress Note (short form) - Note Progress Note: PULMONARY Has sob on ambulation No acute events overnight. Sleep screen:+. vss/afeb Gen: NAD at rest Heart: RRR Lung: decreased breath sounds at the bases Abd: soft, nontender Ext: + edema labs/meds/notes reviewed A/P Acute on Chronic Systolic Heart Failure h/o PE Suspect Obstructive Sleep Apnea HTN Hyperlipidemia Morbid Obesity Noncompliance - Lasix - monitor urine output, creatinine - daily weights - encourage compliance with diet and medications - O2 to keep Spo2 >90% - continue anticoagulation - will need formal NPSG as outpatient Lencho MIR MD
--- NOTE | 2019-08-18 15:29 | PN ---
Progress Note, Physician History of Present Illness: Pt seen and examined at bedside. She is awake and alert. She denies shortness of breath. - Current Medication List Current Medications: Active Medications Acetaminophen (Tylenol -) 325 mg PO Q6H PRN PRN Reason: PAIN LEVEL 6-10 Last Admin: 08/18/19 02:45 Dose: 325 mg Apixaban (Eliquis -) 5 mg PO BID [facility] Last Admin: 08/18/19 09:03 Dose: 5 mg Atorvastatin Calcium (Lipitor -) 40 mg PO HS [facility] Last Admin: 08/17/19 21:33 Dose: 40 mg Carvedilol (Coreg -) 25 mg PO BID [facility] Last Admin: 08/18/19 09:03 Dose: 25 mg Cyclobenzaprine HCl (Flexeril -) 10 mg PO DAILY [facility] Last Admin: 08/18/19 09:04 Dose: 10 mg Docusate Sodium (Colace -) 100 mg PO TID [facility] Last Admin: 08/18/19 14:16 Dose: 100 mg Famotidine (Pepcid -) 20 mg PO BID [facility] Last Admin: 08/18/19 10:34 Dose: 20 mg Ferrous Sulfate (Feosol -) 325 mg PO DAILY [facility] Last Admin: 08/18/19 09:04 Dose: 325 mg Hydralazine HCl (Apresoline -) 10 mg PO BID [facility] Last Admin: 08/18/19 09:03 Dose: 10 mg Isosorbide Mononitrate (Imdur -) 30 mg PO DAILY [facility] Last Admin: 08/18/19 09:03 Dose: 30 mg Lidocaine (Lidoderm Patch -) 1 patch TP DAILY [facility] Last Admin: 08/18/19 09:04 Dose: 1 patch Miscellaneous (Lidoderm Patch Removal) 1 each MC DAILY@2200 [facility] Last Admin: 08/17/19 21:35 Dose: 1 each Oxycodone HCl (Oxycontin -) 10 mg PO BID [facility] Last Admin: 08/18/19 09:04 Dose: 10 mg Oxycodone HCl (Roxicodone -) 10 mg PO Q6H PRN PRN Reason: PAIN LEVEL 6-10 Last Admin: 08/18/19 02:44 Dose: 10 mg Pantoprazole Sodium (Protonix -) 40 mg PO DAILY [facility] Last Admin: 08/18/19 09:03 Dose: 40 mg Polyethylene Glycol (Miralax (For Daily Use) -) 17 gm PO DAILY [facility] Last Admin: 08/18/19 09:04 Dose: 17 gm Senna (Senna -) 2 tab PO HS [facility] Last Admin: 08/17/19 21:33 Dose: 2 tab Spironolactone (Aldactone -) 25 mg PO DAILY [facility] Last Admin: 08/18/19 09:04 Dose: 25 mg Venlafaxine HCl (Effexor -) 75 mg PO TIDCM [facility] Last Admin: 08/18/19 12:34 Dose: 75 mg Zolpidem Tartrate (Ambien -) 10 mg PO HS PRN PRN Reason: INSOMNIA Last Admin: 08/17/19 23:17 Dose: 10 mg - Objective Vital Signs: Vital Signs Temperature 98.0 F 08/18/19 14:00 Pulse Rate 73 08/18/19 14:00 Respiratory Rate 08/18/19 14:00 Blood Pressure 108/59 L 08/18/19 14:00 O2 Sat by Pulse Oximetry (%) 100 08/13/19 06:25 Constitutional: Yes: Calm Eyes: Yes: Conjunctiva Clear HENT: Yes: Atraumatic Neck: Yes: Supple Cardiovascular: Yes: S1, S2 Respiratory: Yes: CTA Bilaterally Gastrointestinal: Yes: Soft, Abdomen, Obese Genitourinary: Yes: WNL Musculoskeletal: Yes: WNL Edema: No Neurological: Yes: Oriented Psychiatric: Yes: Oriented Labs: CBC, BMP 08/18/19 05:46 08/18/19 05:46 Assessment/Plan Current Medications Generic Name Dose Route Start Last Admin Trade Name Freq PRN Reason Stop Dose Admin Acetaminophen 325 mg 08/14/19 08:22 08/18/19 02:45 Tylenol - PO 325 mg Q6H PRN Administration PAIN LEVEL 6-10 Apixaban 5 mg 08/13/19 10:00 08/18/19 09:03 Eliquis - PO 5 mg BID [facility] Administration Atorvastatin Calcium 40 mg 08/13/19 22:00 08/17/19 21:33 Lipitor - PO 40 mg HS [facility] Administration Carvedilol 25 mg 08/13/19 10:00 08/18/19 09:03 Coreg - PO 25 mg BID EMILI Administration Cyclobenzaprine HCl 10 mg 08/13/19 10:00 08/18/19 09:04 Flexeril - PO 10 mg DAILY EMILI Administration Docusate Sodium 100 mg 08/13/19 06:00 08/18/19 14:16 Colace - PO 100 mg TID EMILI Administration Famotidine 20 mg 08/13/19 10:00 08/18/19 10:34 Pepcid - PO 20 mg BID EMILI Administration Ferrous Sulfate 325 mg 08/13/19 10:00 08/18/19 09:04 Feosol - PO 325 mg DAILY EMILI Administration Hydralazine HCl 10 mg 08/13/19 20:30 08/18/19 09:03 Apresoline - PO 10 mg BID EMILI Administration Isosorbide Mononitrate 30 mg 08/13/19 20:15 08/18/19 09:03 Imdur - PO 30 mg DAILY EMILI Administration Lidocaine 1 patch 08/13/19 10:00 08/18/19 09:04 Lidoderm Patch - TP 1 patch DAILY EMILI Administration Miscellaneous 1 each 08/13/19 22:00 08/17/19 21:35 Lidoderm Patch Removal MC 1 each DAILY@2200 EMILI Administration Oxycodone HCl 10 mg 08/13/19 10:00 08/18/19 09:04 Oxycontin - PO 10 mg BID EMILI Administration Oxycodone HCl 10 mg 08/14/19 08:21 08/18/19 02:44 Roxicodone - PO 10 mg Q6H PRN Administration PAIN LEVEL 6-10 Pantoprazole Sodium 40 mg 08/13/19 10:00 08/18/19 09:03 Protonix - PO 40 mg DAILY EMILI Administration Polyethylene Glycol 17 gm 08/13/19 10:00 08/18/19 09:04 Miralax (For Daily Use) - PO 17 gm DAILY EMILI Administration Senna 2 tab 08/13/19 22:00 08/17/19 21:33 Senna - PO 2 tab HS EMILI Administration Spironolactone 25 mg 08/13/19 10:00 08/18/19 09:04 Aldactone - PO 25 mg DAILY EMILI Administration Venlafaxine HCl 75 mg 08/14/19 08:00 08/18/19 12:34 Effexor - PO 75 mg TIDCM EMILI Administration Zolpidem Tartrate 10 mg 08/13/19 22:00 08/17/19 23:17 Ambien - PO 10 mg HS PRN Administration INSOMNIA 1. TEDDY 2. CHF 3. Hypertension 4. Hx of PE on A/C 5. Hyperlipidemia Plan - renal function is improvied - pt on 25 of aldactone - can resume smaller dose of lasix tomorrow and titrate as needed - 2 gram sodium diet - recommend weight loss
[2019-08-18] MEDS: ATORVASTATIN CA 40 MG TABLET (FP) PO SCH (21:13)
[2019-08-18] MEDS: SENNOSIDES 8.6MG TABLET (FP) PO SCH (21:13)
[2019-08-18] MEDS: LIDOCAINE PATCH REMOVAL MC SCH (21:14)
[2019-08-18] MEDS: ZOLPIDEM TARTRATE 5 MG TABLET PO PRN (23:40)
[2019-08-19] MEDS: oxyCODONE HCL 5 MG TABLET PO PRN ×2 (05:00→16:26)
[2019-08-19] MEDS: DOCUSATE SODIUM 100 MG CAPSULE (FP) PO SCH ×2 (05:01→13:16)
[2019-08-19] MEDS: ACETAMINOPHEN 325 MG TABLET (FP) PO PRN ×2 (05:01→16:28)
[2019-08-19 07:06] LABS: BASO % 0.7 % (0-2.0); EOS % 3.8 % (0-4.5); HEMOGLOBIN 9.4 GM/dL (10.7-15.3); LYMPH % 31.6 % (8-40); MCH 26.3 pg (25.7-33.7); MCHC 32.6 g/dl (32.0-36.0); MEAN CELL VOLUME 80.7 fl (80-96); MEAN PLT VOLUME 7.4 fl (7.5-11.1); MONO % 9.3 % (3.8-10.2); NEUT % 54.6 % (42.8-82.8); PLATELET COUNT 362 K/MM3 (134-434); RBC 3.59 M/mm3 (3.60-5.2); RDW 18.8 % (11.6-15.6); WHITE BLOOD COUNT 7.5 K/mm3 (4.0-10.0)
[2019-08-19 09:20] LABS: ALBUMIN 3.5 g/dl (3.4-5.0); BILIRUBIN,TOTAL 0.2 mg/dL (0.2-1); BLOOD UREA NITROGEN 21.5 mg/dL (7-18); CREATININE 1.2 mg/dL (0.55-1.3); MAGNESIUM 2.3 mg/dL (1.8-2.4); POTASSIUM 4.8 mmol/L (3.5-5.1); TOT PROT 7.3 g/dl (6.4-8.2)
[2019-08-19] MEDS ORDERED: FUROSEMIDE 20 MG TABLET (FP) PO SCH ×2 (10:00)
--- NOTE | 2019-08-19 10:16 | PN ---
Teaching Attending Note ATTENDING PHYSICIAN STATEMENT I saw and evaluated the patient. I reviewed the resident's note and discussed the case with the resident. I agree with the resident's findings and plan as documented. Resuming lasix today per nephrology ASSESSMENT AND PLAN:
[2019-08-19] MEDS ORDERED: PT OWN MED DRAWER 7, Y5N ONE (10:28)
[2019-08-19] MEDS: SPIRONOLACTONE 25 MG TABLET (FP) PO SCH (10:29)
[2019-08-19] MEDS: APIXABAN 5 MG TABLET PO SCH (10:29)
[2019-08-19] MEDS: FERROUS SO4 325 MG TABLET (FP) PO SCH (10:29)
[2019-08-19] MEDS: hydrALAZINE HCL 10 MG TABLET PO SCH (10:29)
[2019-08-19] MEDS: CYCLOBENZAPRINE HCL 10 MG TABLET (FP) PO SCH (10:29)
[2019-08-19] MEDS: CARVEDILOL 25 MG TABLET (FP) PO SCH (10:29)
[2019-08-19] MEDS: ISOSORBIDE MONONITRATE 30 MG TAB.SR.24H (FP) PO SCH (10:29)
[2019-08-19] MEDS: PANTOPRAZOLE 40 MG TABLET (FP) PO SCH (10:29)
[2019-08-19] MEDS: LIDOCAINE 5% TOPICAL PATCH TP SCH (10:30)
[2019-08-19] MEDS: VENLAFAXINE HCL 75 MG TABLET PO SCH ×3 (10:30→18:35)
[2019-08-19] MEDS: POLYETHYLENE GLYCOL 3350 119 GM BTL PO SCH (10:31)
[2019-08-19] MEDS: FAMOTIDINE 20 MG TABLET PO SCH (10:31)
[2019-08-19] MEDS: oxyCODONE HCL 10 MG SUSTAINED ACTING TABLET PO SCH (10:32)
--- NOTE | 2019-08-19 12:22 | PN ---
Progress Note (short form) - Note Progress Note: Renal follow up for TEDDY Seen and examined at the bedside feels better denies any shortness of breath, chest pain, N/V making urine Vital Signs Temperature 98.5 F 08/19/19 05:42 Pulse Rate 77 08/19/19 05:42 Respiratory Rate 20 08/19/19 09:00 Blood Pressure 136/76 08/19/19 05:42 O2 Sat by Pulse Oximetry (%) 100 08/13/19 06:25 Intake & Output 08/16/19 08/17/19 08/18/19 08/19/19 23:59 23:59 23:59 23:59 Intake Total 760 240 360 0 Output Total 100 1 Balance 660 240 359 0 Weight 122.561 kg 122.833 kg 122.289 kg 122.198 kg NAD awake and alert CTA no LE edema CBC, BMP 08/19/19 05:35 08/19/19 05:35 Current Medications Acetaminophen (Tylenol -) 325 mg PO Q6H PRN PRN Reason: PAIN LEVEL 6-10 Last Admin: 08/19/19 05:01 Dose: 325 mg Apixaban (Eliquis -) 5 mg PO BID [facility] Last Admin: 08/19/19 10:29 Dose: 5 mg Atorvastatin Calcium (Lipitor -) 40 mg PO HS [facility] Last Admin: 08/18/19 21:13 Dose: 40 mg Carvedilol (Coreg -) 25 mg PO BID [facility] Last Admin: 08/19/19 10:29 Dose: 25 mg Cyclobenzaprine HCl (Flexeril -) 10 mg PO DAILY [facility] Last Admin: 08/19/19 10:29 Dose: 10 mg Docusate Sodium (Colace -) 100 mg PO TID [facility] Last Admin: 08/19/19 05:01 Dose: 100 mg Famotidine (Pepcid -) 20 mg PO BID [facility] Last Admin: 08/19/19 10:31 Dose: 20 mg Ferrous Sulfate (Feosol -) 325 mg PO DAILY [facility] Last Admin: 08/19/19 10:29 Dose: 325 mg Furosemide (Lasix -) 20 mg PO DAILY [facility] Last Admin: 08/19/19 10:29 Dose: 20 mg Hydralazine HCl (Apresoline -) 10 mg PO BID [facility] Last Admin: 08/19/19 10:29 Dose: 10 mg Isosorbide Mononitrate (Imdur -) 30 mg PO DAILY [facility] Last Admin: 08/19/19 10:29 Dose: 30 mg Lidocaine (Lidoderm Patch -) 1 patch TP DAILY [facility] Last Admin: 08/19/19 10:30 Dose: 1 patch Miscellaneous (Lidoderm Patch Removal) 1 each MC DAILY@2200 [facility] Last Admin: 08/18/19 21:14 Dose: 1 each Oxycodone HCl (Oxycontin -) 10 mg PO BID [facility] Last Admin: 08/19/19 10:32 Dose: 10 mg Oxycodone HCl (Roxicodone -) 10 mg PO Q6H PRN PRN Reason: PAIN LEVEL 6-10 Last Admin: 08/19/19 05:00 Dose: 10 mg Pantoprazole Sodium (Protonix -) 40 mg PO DAILY [facility] Last Admin: 08/19/19 10:29 Dose: 40 mg Polyethylene Glycol (Miralax (For Daily Use) -) 17 gm PO DAILY [facility] Last Admin: 08/19/19 10:31 Dose: 17 gm Senna (Senna -) 2 tab PO HS [facility] Last Admin: 08/18/19 21:13 Dose: 2 tab Spironolactone (Aldactone -) 25 mg PO DAILY [facility] Last Admin: 08/19/19 10:29 Dose: 25 mg Venlafaxine HCl (Effexor -) 75 mg PO TIDCM [facility] Last Admin: 08/19/19 10:30 Dose: 75 mg Zolpidem Tartrate (Ambien -) 10 mg PO HS PRN PRN Reason: INSOMNIA Last Admin: 08/18/19 23:40 Dose: 10 mg ASSESSMENT AND PLAN: 58 year old woman with history of CHF, PE, Hypertension, HLD, GERD who presented from home with shortness of breath and noted to have rising Cr during her hospital stay. 1. Acute kidney injury likely multifactorial from CHF/Renal hypoprofusion vs. contrast nephropathy vs. NSAID induced renal injury 2. CHF exacerbation 3. Hypertension 4. Hx of PE on A/C 5. Hyperlipidemia Renal function improved and stable Can resume Lasix 40mg Daily Can resume ACEi on discharge Stable for discharge from renal perspective Thank you Dino Fuentes DO
--- NOTE | 2019-08-19 12:28 | PN ---
Progress Note (short form) - Note Progress Note: PULMONARY States breathing is better. no chest pain. Vital Signs Period Temp Pulse Resp BP Sys/Vilchis Pulse Ox Last 24 Hr 98 F-98.5 F 73-87 20-20 108-136/59-76 Gen: NAD at rest Heart: RRR Lung: decreased breath sounds at the bases Abd: soft, nontender Ext: no edema CBC, BMP 08/19/19 05:35 08/19/19 05:35 Active Medications Acetaminophen (Tylenol -) 325 mg PO Q6H PRN PRN Reason: PAIN LEVEL 6-10 Last Admin: 08/19/19 05:01 Dose: 325 mg Apixaban (Eliquis -) 5 mg PO BID [facility] Last Admin: 08/19/19 10:29 Dose: 5 mg Atorvastatin Calcium (Lipitor -) 40 mg PO HS [facility] Last Admin: 08/18/19 21:13 Dose: 40 mg Carvedilol (Coreg -) 25 mg PO BID [facility] Last Admin: 08/19/19 10:29 Dose: 25 mg Cyclobenzaprine HCl (Flexeril -) 10 mg PO DAILY [facility] Last Admin: 08/19/19 10:29 Dose: 10 mg Docusate Sodium (Colace -) 100 mg PO TID [facility] Last Admin: 08/19/19 05:01 Dose: 100 mg Famotidine (Pepcid -) 20 mg PO BID [facility] Last Admin: 08/19/19 10:31 Dose: 20 mg Ferrous Sulfate (Feosol -) 325 mg PO DAILY [facility] Last Admin: 08/19/19 10:29 Dose: 325 mg Furosemide (Lasix -) 40 mg PO DAILY [facility] Hydralazine HCl (Apresoline -) 10 mg PO BID [facility] Last Admin: 08/19/19 10:29 Dose: 10 mg Isosorbide Mononitrate (Imdur -) 30 mg PO DAILY [facility] Last Admin: 08/19/19 10:29 Dose: 30 mg Lidocaine (Lidoderm Patch -) 1 patch TP DAILY [facility] Last Admin: 08/19/19 10:30 Dose: 1 patch Miscellaneous (Lidoderm Patch Removal) 1 each MC DAILY@2200 [facility] Last Admin: 08/18/19 21:14 Dose: 1 each Oxycodone HCl (Oxycontin -) 10 mg PO BID [facility] Last Admin: 08/19/19 10:32 Dose: 10 mg Oxycodone HCl (Roxicodone -) 10 mg PO Q6H PRN PRN Reason: PAIN LEVEL 6-10 Last Admin: 08/19/19 05:00 Dose: 10 mg Pantoprazole Sodium (Protonix -) 40 mg PO DAILY [facility] Last Admin: 08/19/19 10:29 Dose: 40 mg Polyethylene Glycol (Miralax (For Daily Use) -) 17 gm PO DAILY [facility] Last Admin: 08/19/19 10:31 Dose: 17 gm Senna (Senna -) 2 tab PO HS [facility] Last Admin: 08/18/19 21:13 Dose: 2 tab Spironolactone (Aldactone -) 25 mg PO DAILY [facility] Last Admin: 08/19/19 10:29 Dose: 25 mg Venlafaxine HCl (Effexor -) 75 mg PO TIDCM [facility] Last Admin: 08/19/19 10:30 Dose: 75 mg Zolpidem Tartrate (Ambien -) 10 mg PO HS PRN PRN Reason: INSOMNIA Last Admin: 08/18/19 23:40 Dose: 10 mg A/P Acute on Chronic Systolic Heart Failure h/o PE Suspect Obstructive Sleep Apnea HTN Hyperlipidemia Morbid Obesity Noncompliance - continue lasix - monitor urine output, creatinine - daily weights - encourage compliance with diet and medications - O2 to keep Spo2 >90% - continue anticoagulation - will need formal NPSG as outpt - d/c planning in progress
--- NOTE | 2019-08-19 13:46 | PN ---
Progress Note, Physician History of Present Illness: 58-year-old black woman with history of dilated cardiomyopathy (severe systolic LV dysfunction),?nonobstructive CAD (pt states she had a coronary angiogram at ? [facility] approximately 6 months ago), morbid obesity, HTN, hyperlipidemia, iron -deficiency anemia, "borderline" DM, s/p pulmonary embolism, noncompliance with recent ED visit/elopement, now with increasing shortness of breath and chronic lower back and LE pain. 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 Andres Newman - Current Medication List Current Medications: Active Medications Acetaminophen (Tylenol -) 325 mg PO Q6H PRN PRN Reason: PAIN LEVEL 6-10 Last Admin: 08/19/19 05:01 Dose: 325 mg Apixaban (Eliquis -) 5 mg PO BID [facility] Last Admin: 08/19/19 10:29 Dose: 5 mg Atorvastatin Calcium (Lipitor -) 40 mg PO HS [facility] Last Admin: 08/18/19 21:13 Dose: 40 mg Carvedilol (Coreg -) 25 mg PO BID [facility] Last Admin: 08/19/19 10:29 Dose: 25 mg Cyclobenzaprine HCl (Flexeril -) 10 mg PO DAILY [facility] Last Admin: 08/19/19 10:29 Dose: 10 mg Docusate Sodium (Colace -) 100 mg PO TID [facility] Last Admin: 08/19/19 13:16 Dose: 100 mg Famotidine (Pepcid -) 20 mg PO BID [facility] Last Admin: 08/19/19 10:31 Dose: 20 mg Ferrous Sulfate (Feosol -) 325 mg PO DAILY [facility] Last Admin: 08/19/19 10:29 Dose: 325 mg Furosemide (Lasix -) 40 mg PO DAILY [facility] Hydralazine HCl (Apresoline -) 10 mg PO BID [facility] Last Admin: 08/19/19 10:29 Dose: 10 mg Isosorbide Mononitrate (Imdur -) 30 mg PO DAILY [facility] Last Admin: 08/19/19 10:29 Dose: 30 mg Lidocaine (Lidoderm Patch -) 1 patch TP DAILY [facility] Last Admin: 08/19/19 10:30 Dose: 1 patch Miscellaneous (Lidoderm Patch Removal) 1 each MC DAILY@2200 [facility] Last Admin: 08/18/19 21:14 Dose: 1 each Oxycodone HCl (Oxycontin -) 10 mg PO BID [facility] Last Admin: 08/19/19 10:32 Dose: 10 mg Oxycodone HCl (Roxicodone -) 10 mg PO Q6H PRN PRN Reason: PAIN LEVEL 6-10 Last Admin: 08/19/19 05:00 Dose: 10 mg Pantoprazole Sodium (Protonix -) 40 mg PO DAILY [facility] Last Admin: 08/19/19 10:29 Dose: 40 mg Polyethylene Glycol (Miralax (For Daily Use) -) 17 gm PO DAILY [facility] Last Admin: 08/19/19 10:31 Dose: 17 gm Senna (Senna -) 2 tab PO HS [facility] Last Admin: 08/18/19 21:13 Dose: 2 tab Spironolactone (Aldactone -) 25 mg PO DAILY [facility] Last Admin: 08/19/19 10:29 Dose: 25 mg Venlafaxine HCl (Effexor -) 75 mg PO TIDCM [facility] Last Admin: 08/19/19 13:16 Dose: 75 mg Zolpidem Tartrate (Ambien -) 10 mg PO HS PRN PRN Reason: INSOMNIA Last Admin: 08/18/19 23:40 Dose: 10 mg - Objective Vital Signs: Vital Signs Temperature 98.9 F 08/19/19 09:00 Pulse Rate 83 08/19/19 09:00 Respiratory Rate 18 08/19/19 09:00 Blood Pressure 142/102 H 08/19/19 09:00 O2 Sat by Pulse Oximetry (%) 100 08/13/19 06:25 Constitutional: Yes: Obese Labs: CBC, BMP 08/19/19 05:35 08/19/19 05:35 Problem List - Problems (1) Systolic CHF Assessment/Plan: Continue carvedilol, sprionolactone, lisinopril (increased the latter to 10 mg daily); added hydralazine + Imdur (systolic CHF; HTN). Stop furosemide (no signs of acute CHF; rising BUN and Cr). I discussed pt with her mail handlers supervisor, Dr. Andres Newman. He plans to start Entresto as outpatient if her insurance allows (and assuming BUN/Cr and electrolytes also fall withn range). She has been noncompliant to office visits in the past, and changed mail handlers supervisor at one point, then returned to him. He believes there is CAD; awaits record of most recent angiogram (?[facility] 6 months ago).If ICD placement was discussed with her in the past; she did not agree to it at the time. He will discuss it again with her (she has an appointment scheduled with him for tomorrow; if she does not make this, another appointment may be scheduled for next week). From a cardiac standpoint, pt may be followed as an outpatient. If GI issues are stable, would continue workup for anemia as outpatient. If felt necessary to have EGD/colonoscopy this admission, there are no absolute contraindications to do so from a cardiac standpoint. I discussed pt today with medical editor. I communicated to Dr. Newman that pt was being discharged on above regimen. He will see her as soon as possible in his office. Code(s): I50.20 - UNSPECIFIED SYSTOLIC (CONGESTIVE) HEART FAILURE (2) DM2 (diabetes mellitus, type 2) Code(s): E11.9 - TYPE 2 DIABETES MELLITUS WITHOUT COMPLICATIONS Qualifiers: Diabetes mellitus residential insulin use: unspecified residential insulin use status Diabetes mellitus complication status: with other specified complication Qualified Code(s): E11.69 - Type 2 diabetes mellitus with other specified complication (3) Calculus of gallbladder without cholecystitis without obstruction Code(s): K80.20 - CALCULUS OF GALLBLADDER W/O CHOLECYSTITIS W/O OBSTRUCTION (4) Chronic pain Code(s): G89.29 - OTHER CHRONIC PAIN (5) Eloped from emergency department Code(s): Z53.21 - PROC/TRTMT NOT CRD OUT D/T PT LV BEF SEEN BY [facility] CARE PROV (6) History of pulmonary embolism Code(s): Z86.711 - PERSONAL HISTORY OF PULMONARY EMBOLISM (7) Depression Code(s): F32.9 - MAJOR DEPRESSIVE DISORDER, SINGLE EPISODE, UNSPECIFIED (8) Essential hypertension Code(s): I10 - ESSENTIAL (PRIMARY) HYPERTENSION (9) Morbid obesity Code(s): E66.01 - MORBID (SEVERE) OBESITY DUE TO EXCESS CALORIES (10) Opioid dependence with withdrawal Code(s): F11.23 - OPIOID DEPENDENCE WITH WITHDRAWAL (11) [place] cardiac risk >20% in next 10 years Code(s): Z91.89 - OTH PERSONAL RISK FACTORS, NOT ELSEWHERE CLASSIFIED (12) Anemia Code(s): D64.9 - ANEMIA, UNSPECIFIED (13) Sleep apnea Code(s): G47.30 - SLEEP APNEA, UNSPECIFIED
--- NOTE | 2019-08-19 14:27 | PN ---
Teaching Attending Note ATTENDING PHYSICIAN STATEMENT I saw and evaluated the patient. I reviewed the resident's note and discussed the case with the resident. I agree with the resident's findings and plan as documented. Seen and examined; please see resident note for further historical information. I personally verified all jaimes historical information and exam findings. Personally interpreted all imaging and diagnostics and reviewed appropriate consults. I reviewed all labs and vital signs as per resident note and EMR as documented. I agree with the above assessment and plan unless supplemented by myself in the following. SUBJECTIVE: The patient is hemodynamically stable and afebrile and has no new complaints today. Cardiology states to continue the Coreg, lisinopril, hydralazine, and to stop the furosemide. The patient's pulping machine operator plans to start her on Entresto as an outpatient. We have been unable to locate the angiogram that she references. She is unable to locate her LifeVest. We will need to discuss discharge off the LifeVest with cardiology as she has declined AICD placement in the past. She has extraordinarily limited insight into her ongoing medical conditions and she was counseled extensively by the medicine service. She is pending placement due to her profound deconditioning that stems from her baseline NYHA III cardiac symptoms secondary to her heart failure with reduced ejection fraction secondary to dilated cardiomyopathy. 10 item review of systems completed and is negative aside from as discussed in the subjective data in my own/the resident documentation. VS, labs, imaging reviewed NAD, AAO, resting comfortably in bed. RRR s1/2 no mgr Normal muscle tone, moves all 5 extremities with normal apparent strength Neck is supple, trachea midline, no shayla LN Lungs CTAB with sym expansion NT ND +BS no shayla organomegaly CN2-12 wnl; no FND NC AT EOMI PERRLA Normal mood, appropriate behavior, euthymic affect No skin breakdown or rashes noted Telemetry reviewed, can discontinue at this juncture. Assessment and plan: Acute on chronic systolic heart failure, NYHA III symptoms at baseline, currently NYHA III symptomatology. Echocardiogram noted. Continuing Aldactone and Coreg. Resume Lasix when okay with nephrology given her underlying renal dysfunction. Lisinopril is currently being held due to the TEDDY. Her pulping machine operator is intending to start her on Entresto as an outpatient. She tells me that her family cannot locate her life vest and that her symptoms are stable. Hypertensive urgency, resolved. Continue current medications. Uncontrolled hypertension history, as per above History of nonischemic cardiomyopathy contributing to the CHF. Acute kidney injury on stage III CKD; resumed lisinopril, CV states hold lasix; will discuss with nephro/CV Chronic lower extremity pain, I stop was checked. She will continue on OxyContin, Lidoderm, Effexor, Flexeril. She will continue on her long-acting opioids. Chronic GERD, continuing home medications, and no new issues. Morbid obesity BMI is 43.5, counseling provided Iron deficiency anemia, continue to trend. History of pulmonary embolism, on Eliquis. Continue. No new issues. AMANDA/obesity hypoventilation syndrome with planned full outpatient sleep study. Degenerative joint disease Prior CT findings (nonurgent FU with Dr. Pierre) Disposition is pending SNF placement. Patient walked 50 feet and admission but did have falls and is short of breath with mild exertion secondary to her advanced CHF. On Monday, August 16 she only ambulated 30 feet twice. Due to this, she will require placement. Working with social work. She will require outpatient follow-up with gastroenterology. Furthermore, discharge could be complicated by the fact that she cannot locate her LifeVest anywhere and her family cannot either. She is a high risk of sudden cardiac due to her progressive CHF. In discussing with cardiology. Full code.
--- NOTE | 2019-08-19 17:40 | DS ---
Physical Exam: SUBJECTIVE: Patient seen and examined. Pt improved, afebrile and asymptomatic. Denies f/c/n/v/d/sob. OBJECTIVE: Vital Signs Period Temp Pulse Resp BP Sys/Vilchis Pulse Ox Last 24 Hr 98 F-98.9 F 76-87 18-20 126-142/65-102 PHYSICAL EXAM GENERAL: The patient is awake, alert, and fully oriented, in no acute distress. EYES: PERRL, extraocular movements intact, sclera anicteric, conjunctiva clear. ENT: moist mucous membranes. LUNGS: Breath sounds equal, clear to auscultation bilaterally, no wheezes, no crackles, no accessory muscle use. HEART: Regular rate and rhythm, S1, S2 without murmur, rub or gallop. ABDOMEN: Soft, nontender, nondistended, normoactive bowel sounds, no guarding, no rebound, EXTREMITIES: 2+ pulses, warm, well-perfused, mild ankle edema. SKIN: Warm, dry, normal turgor, no rashes LABS Laboratory Results - last 24 hr 08/19/19 08/19/19 05:35 05:35 WBC 7.5 RBC 3.59 L Hgb 9.4 L Hct 29.0 L MCV 80.7 MCH 26.3 MCHC 32.6 RDW 18.8 H Plt Count 362 MPV 7.4 L Absolute Neuts (auto) 4.1 Neutrophils % 54.6 Lymphocytes % 31.6 Monocytes % 9.3 Eosinophils % 3.8 Basophils % 0.7 Nucleated RBC % 0 Sodium 139 Potassium 4.8 Chloride 108 H Carbon Dioxide 27 Anion Gap 5 L BUN 21.5 H Creatinine 1.2 Est GFR (CKD-EPI)AfAm 57.29 Est GFR (CKD-EPI)NonAf 49.43 Random Glucose 93 Calcium 9.0 Magnesium 2.3 Total Bilirubin 0.2 AST 11 L ALT 26 Alkaline Phosphatase 90 Total Protein 7.3 Albumin 3.5 Current Medications Acetaminophen (Tylenol -) 325 mg PO Q6H PRN PRN Reason: PAIN LEVEL 6-10 Last Admin: 08/19/19 16:28 Dose: 325 mg Apixaban (Eliquis -) 5 mg PO BID [facility] Last Admin: 08/19/19 10:29 Dose: 5 mg Atorvastatin Calcium (Lipitor -) 40 mg PO HS [facility] Last Admin: 08/18/19 21:13 Dose: 40 mg Carvedilol (Coreg -) 25 mg PO BID [facility] Last Admin: 08/19/19 10:29 Dose: 25 mg Cyclobenzaprine HCl (Flexeril -) 10 mg PO DAILY [facility] Last Admin: 08/19/19 10:29 Dose: 10 mg Docusate Sodium (Colace -) 100 mg PO TID [facility] Last Admin: 08/19/19 13:16 Dose: 100 mg Famotidine (Pepcid -) 20 mg PO BID [facility] Last Admin: 08/19/19 10:31 Dose: 20 mg Ferrous Sulfate (Feosol -) 325 mg PO DAILY [facility] Last Admin: 08/19/19 10:29 Dose: 325 mg Furosemide (Lasix -) 40 mg PO DAILY [facility] Hydralazine HCl (Apresoline -) 10 mg PO BID [facility] Last Admin: 08/19/19 10:29 Dose: 10 mg Isosorbide Mononitrate (Imdur -) 30 mg PO DAILY [facility] Last Admin: 08/19/19 10:29 Dose: 30 mg Lidocaine (Lidoderm Patch -) 1 patch TP DAILY [facility] Last Admin: 08/19/19 10:30 Dose: 1 patch Miscellaneous (Lidoderm Patch Removal) 1 each MC DAILY@2200 [facility] Last Admin: 08/18/19 21:14 Dose: 1 each Oxycodone HCl (Oxycontin -) 10 mg PO BID [facility] Last Admin: 08/19/19 10:32 Dose: 10 mg Oxycodone HCl (Roxicodone -) 10 mg PO Q6H PRN PRN Reason: PAIN LEVEL 6-10 Last Admin: 08/19/19 16:26 Dose: 10 mg Pantoprazole Sodium (Protonix -) 40 mg PO DAILY [facility] Last Admin: 08/19/19 10:29 Dose: 40 mg Polyethylene Glycol (Miralax (For Daily Use) -) 17 gm PO DAILY [facility] Last Admin: 08/19/19 10:31 Dose: 17 gm Senna (Senna -) 2 tab PO HS [facility] Last Admin: 08/18/19 21:13 Dose: 2 tab Spironolactone (Aldactone -) 25 mg PO DAILY [facility] Last Admin: 08/19/19 10:29 Dose: 25 mg Venlafaxine HCl (Effexor -) 75 mg PO TIDCM [facility] Last Admin: 08/19/19 13:16 Dose: 75 mg Zolpidem Tartrate (Ambien -) 10 mg PO HS PRN PRN Reason: INSOMNIA Last Admin: 08/18/19 23:40 Dose: 10 mg HOSPITAL COURSE: 58 year old female with a past medical history of CHF, history of dilated cardiomyopathy (severe systolic LV dysfunction),?nonobstructive CAD (pt states she had a coronary angiogram at ?[facility] approximately 6 months ago), PE (on eliquis), HTN, HLD, chronic LLE pain, GERD admitted for shortness of breath 2/2 to CHF exacerbation. Pt was not compliant with her home dose of lasix due to urinary symptoms and not adherent to appropriate diet. On admission she was suspected to have a PE but was ruled out with a Chest CT showed no obvious new pulmonary embolism or no acute DVT on leg doppler. Pt was started on IV lasix and cardiology was consulted. Pt improved symptomatically and then was started on cocktail for CHF, lisinopril, coreg, aldactone, imdur and hydralazine. Her director of medical services, Dr Newman was reached and he plans on starting pt on Entresto outpt, but was unable to do so lately due to noncompliance of pt. ICD placement was discussed with her in the past; she did not agree to it at the time. Pt also has a Lifevest but declines to bring it in. After extensive discussion with cardiology, pt was discharged home on lisinopril, coreg, aldactone, imdur and hydralazine, and Lasix were discontinued until she f/u with her director of medical services. EKG shows Afib with no significant ST-T wave changes. previous echo (06/25): EF of 25% Echo now noting severely reduced LV function, severe global hypokinesis of left ventricle, mild pericardial effusion, mild tricuspid regurg, mild to mod mitral regurg CTA: no evidence of PE, with noted pericardial effusion Duplex: no evidence of DVT Repeat CXR with no infiltrates or evidence of heart failure Date of Admission:08/13/19 Date of Discharge: 08/19/19 Minutes to complete discharge: 40 Discharge Summary Problems reviewed: Yes Reason For Visit: CHRONIC PAIN CONGESTIVE HEART FAILURE TYPE 2 DIABE Condition: Improved - Instructions Diet, Activity, Other Instructions: You were admitted in the hospital for shortness of breath. While in the hospital, we evaluated you with lab work, blood work, imaging including x rays of your chest, EKG, and Echocardiogram. We found that your symptoms were caused by worsening of your congestive heart failure. We treated you with medications and your symptoms improved significantly. In order to continue treating your congestive heart failure, please take the following medications as instructed Continue Coreg 25 mg twice daily Continue Spironolactone 25 mg daily START Hydralazine 10 mg twice daily START Imdur 30mg once daily START Lisinopril 20mg once daily Please STOP taking your Lasix 40mg. You can discuss the need to continue this medication when you see your Latin Dancer Dr. Newman. It is important that you take your medications regularly and follow up with your director of medical services in order to prevent worsening of your symptoms. Please take all your medications as prescribed Please follow up with your director of medical services Andres Monahan, within 1 week, please book an appointment with him as soon as you can. Please follow up with your primary care physician within 1 week Return to the emergency room, if you experience worsening of your symptoms, shortness of breath, chest pain, weakness or any worsening of your condition. Referrals: Andres Newman MD [Non Staff, Medical] - Sharon Dumont DO [Staff Physician] - Hever Gaitan MD [Staff Physician] - [facility]position[facility] - Home Medications Comprehensive Discharge Medication List: Ambulatory Orders Carvedilol [Coreg] 25 mg PO BID 08/03/17 Cyclobenzaprine HCl 10 mg PO BID 08/04/17 Oxycodone HCl/Acetaminophen [Oxycodone-Acetaminophen 10-325] 1 each PO Q6H PRN MDD 4/day 08/04/17 Zolpidem Tartrate [Ambien] 10 mg PO HS 01/12/18 Gabapentin [Neurontin -] 400 mg PO Q8H 01/03/19 Apixaban [Eliquis -] 5 mg PO BID tablet 01/07/19 Docusate Sodium [Colace -] 100 mg PO TID capsule 01/07/19 oxyCODONE SR [Oxycontin] 15 mg PO BID 06/17/19 Ferrous Sulfate [Feosol] 325 mg PO DAILY #30 tab 06/18/19 Spironolactone [Aldactone -] 25 mg PO DAILY #30 tablet 06/18/19 Hydralazine HCl 10 mg PO BID #30 tablet 08/19/19 Isosorbide Mononitrate [Imdur -] 30 mg PO DAILY #30 tab.sr.24h 08/19/19 Lisinopril 20 mg PO DAILY 30 Days #30 tablet 08/19/19 Miscellaneous Medical Supply [Outpatient Order] 1 each ASDIR #1 misc This patient is new to me today: Yes Date on this admission: 08/19/19 Emergency Visit: Yes ED Registration Date: 08/13/19 Care time: The patient presented to the Emergency Department on the above date and was hospitalized for further evaluation of their emergent condition. Critical Care patient: No - Discharge Referral Referred to [facility] Med [facility] No ATTENDING PHYSICIAN STATEMENT I saw and evaluated the patient. I reviewed the resident's note and discussed the case with the resident. I agree with the resident's findings and plan as documented. SUBJECTIVE: OBJECTIVE: ASSESSMENT AND PLAN:
[2019-08-19 18:58] VITALS: BP 142/89; PULSE 84; TEMP 98.4
[2019-08-20] MEDS ORDERED: FUROSEMIDE 40 MG TABLET (FP) PO SCH (10:00)
== END 2019-08-19 20:03 | DRG 314 ==
LOC: JER 22:57 → JERBED 08-13 03:54 → J4W 08-13 20:11
PROVIDERS: ADMIT Internal Medicine; ATTEND Internal Medicine
DX: I42.8 Other cardiomyopathies (principal); I50.23 Acute on chronic systolic (congestive) heart failure; I13.0 Hypertensive heart and chronic kidney disease with heart failure and stage 1 through stage 4 chronic kidney disease, or unspecified chronic kidney disease; Z68.41 Body mass index [BMI] 40.0-44.9, adult; N17.9 Acute kidney failure, unspecified; E66.2 Morbid (severe) obesity with alveolar hypoventilation; E11.40 Type 2 diabetes mellitus with diabetic neuropathy, unspecified; Z86.711 Personal history of pulmonary embolism; Z79.01 Long term (current) use of anticoagulants; K21.9 Gastro-esophageal reflux disease without esophagitis; Z91.14 Patient's other noncompliance with medication regimen; D50.9 Iron deficiency anemia, unspecified; E78.5 Hyperlipidemia, unspecified; F32.9 Major depressive disorder, single episode, unspecified; I16.0 Hypertensive urgency; I25.10 Atherosclerotic heart disease of native coronary artery without angina pectoris; N18.3 Chronic kidney disease, stage 3 (moderate)
CPT/HCPCS: 36415; 36600; 70450-TC; 71045-TC-FY; 71046-TC-FY; 71275-TC; 73030-TC-RT-FY; 80048; 80053; 80061; 81003; 82272; 82436; 82565; 82570; 82728; 82803; 83036; 83540; 83550; 83721; 83735; 83880; 84100; 84133; 84156; 84300; 84484; 84540; 85025; 85027; 85730; 87205; 93005; 93010; 93306-TC; 93970-TC; 97116-GP; 97161-GP; 99285-25; J0131

== ENCOUNTER 2020-12-04 15:46 | Inpatient (IN) | payer OTHER ==
[2020-12-04] MEDS ORDERED: ACETAMINOPHEN 1000 MG/100 ML VIAL (NON FORMULARY) IVPB ONE (16:24)
[2020-12-04] MEDS ORDERED: FAMOTIDINE 20 MG/50 ML IVPB 20 MG/50 ML MG IVPB ONE ×2 (16:24→16:48)
[2020-12-04] MEDS ORDERED: ONDANSETRON 4 MG/2 ML VIAL IVPUSH ONE (16:24)
[2020-12-04] MEDS ORDERED: SODIUM CHLORIDE 0.9% 500 ML INFUS.BAG IV ONE ×2 (16:25→18:42)
[2020-12-04] MEDS ORDERED: ONDANSETRON 4 MG/2 ML VIAL ONE (16:48)
[2020-12-04] MEDS ORDERED: ACETAMINOPHEN INJECTION 100 ML IVPB ONE (16:48)
[2020-12-04 17:54] LABS: VENOUS BASE EXCESS 0.1 mmol/L (-2-2); VENOUS O2 SATURATION 53.8 % (70-80); VENOUS PCO2 42.3 mmHg (38-52); VENOUS PH 7.391 (7.310-7.410)
[2020-12-04 18:03] LABS: EOS % 0.2 % (0-4.5); HEMATOCRIT 29.1 % (32.4-45.2); HEMOGLOBIN 9.3 GM/dL (10.7-15.3); LYMPH % 10.2 % (8-40); MCH 23.9 pg (25.7-33.7); MCHC 31.8 g/dl (32.0-36.0); MEAN CELL VOLUME 75.2 fl (80-96); MEAN PLT VOLUME 7.7 fl (7.5-11.1); MONO % 3.8 % (3.8-10.2); NEUT % 84.8 % (42.8-82.8); PLATELET COUNT 390 K/MM3 (134-434); RBC 3.87 M/mm3 (3.60-5.2); RDW 16.3 % (11.6-15.6); WHITE BLOOD COUNT 11.2 K/mm3 (4.0-10.0)
[2020-12-04 18:12] LABS: CHLORIDE 104 mmol/L (98-107); SODIUM 136 mmol/L (136-145)
[2020-12-04 18:14] LABS: ALBUMIN 3.6 g/dl (3.4-5.0); CALCIUM 8.8 mg/dL (8.5-10.1)
[2020-12-04 18:15] LABS: ANION GAP 8 MMOL/L (8-16); BLOOD UREA NITROGEN 18.3 mg/dL (7-18); CO2 24 mmol/L (21-32); GLUCOSE,RANDOM 147 mg/dL (74-106); LIPASE 45 U/L (73-393)
[2020-12-04 18:18] LABS: CREATININE 1.3 mg/dL (0.55-1.3); PHOSPHOROUS 2.3 mg/dL (2.5-4.9); SGOT/AST 11 U/L (15-37); SGPT/ALT 17 U/L (13-61)
[2020-12-04 18:19] LABS: BILIRUBIN,TOTAL 0.4 mg/dL (0.2-1); TOT PROT 8.4 g/dl (6.4-8.2)
[2020-12-04 18:20] LABS: ALK PHOS 143 U/L (45-117)
[2020-12-04 18:21] LABS: N-TERMINAL BNP 982.9 pg/ml (5-125)
[2020-12-04 18:25] LABS: LACTIC ACID 2.3 mmol/L (0.4-2.0)
[2020-12-04 19:08] LABS: EPI CELLS 33 /uL (0-25.1); HYALINE CASTS 0 /uL (0-3.1); URINE APPEARANCE CLOUDY; URINE BACTERIA >9,000 /uL (0-1359); URINE BILIRUBIN NEGATIVE (NEGATIVE); URINE COLOR YELLOW; URINE GLUCOSE (UA) NEGATIVE (NEGATIVE); URINE KETONE NEGATIVE (NEGATIVE); URINE LEUK ESTERASE NEGATIVE (NEGATIVE); URINE NITRITE NEGATIVE (NEGATIVE); URINE PROTEIN 1+ (NEGATIVE); URINE RBC 7 /uL (0-23.9); URINE UROBILINOGEN 0.2 mg/dL (0.2-1.0); URINE WBC 35 /uL (0-25.8)
[2020-12-04] MEDS ORDERED: CEFTRIAXONE 1 GM in DEXTROSE 5%-WATER - 100 ML IVPB ONE (19:39)
[2020-12-04] MEDS ORDERED: METOCLOPRAMIDE HCL INJECTION 10 MG/2 ML VIAL IVPUSH ONE (19:39)
[2020-12-04] MEDS ORDERED: MAG HYDROX/AL HYDROX/SIMETH -MYLANTA- ORAL SUSPENSION PO ONE (19:39)
[2020-12-04] MEDS ORDERED: METOCLOPRAMIDE HCL INJECTION 10 MG/2 ML VIAL ONE (19:50)
[2020-12-04] MEDS ORDERED: MAG HYDROX/AL HYDROX/SIMETH 30 ML UNIT-DOSE CUP ONE (19:50)
[2020-12-04] MEDS ORDERED: CEFTRIAXONE 1 GM/50 ML BAG ONE (19:56)
[2020-12-05] MEDS ORDERED: oxyCODONE HCL 5 MG TABLET PO PRN (01:25)
[2020-12-05] MEDS ORDERED: METOCLOPRAMIDE HCL INJECTION 10 MG/2 ML VIAL IVPUSH PRN (01:29)
[2020-12-05] MEDS ORDERED: SODIUM CHLORIDE 1,000 ML IV SCH (01:30)
[2020-12-05] MEDS ORDERED: GABAPENTIN 100 MG CAPSULE ONE (01:45)
[2020-12-05] MEDS: GABAPENTIN 400 MG CAPSULE PO SCH ×4 (01:52→21:44)
[2020-12-05 03:52] VITALS: BMI 47.7
[2020-12-05] MEDS ORDERED: hydrALAZINE HCL 10 MG TABLET PO SCH (06:00)
[2020-12-05] MEDS: INSULIN SLIDING SCALE (NOVOLOG) 1 VIAL SQ SCH ×4 (06:41→22:37)
[2020-12-05 07:42] LABS: HEMATOCRIT 29.8 % (32.4-45.2); HEMOGLOBIN 9.3 GM/dL (10.7-15.3); MCH 23.5 pg (25.7-33.7); MEAN CELL VOLUME 75.9 fl (80-96); MEAN PLT VOLUME 7.2 fl (7.5-11.1); PLATELET COUNT 421 K/MM3 (134-434); RBC 3.93 M/mm3 (3.60-5.2); RDW 16.1 % (11.6-15.6); WHITE BLOOD COUNT 13.9 K/mm3 (4.0-10.0)
[2020-12-05 08:09] LABS: CALCIUM 8.4 mg/dL (8.5-10.1)
[2020-12-05 08:10] LABS: MAGNESIUM 2.1 mg/dL (1.8-2.4)
[2020-12-05 08:14] LABS: CREATININE 1.4 mg/dL (0.55-1.3); PHOSPHOROUS 3.1 mg/dL (2.5-4.9)
[2020-12-05] MEDS ORDERED: cefTRIAXone SODIUM 1 GM VIAL ONE (09:06)
[2020-12-05] MEDS ORDERED: DEXTROSE 5%-WATER - 50 ML IVPB ONE (09:06)
[2020-12-05] MEDS: APIXABAN 5 MG TABLET PO SCH ×2 (09:37→21:44)
[2020-12-05] MEDS: CARVEDILOL 25 MG TABLET (FP) PO SCH ×2 (09:37→21:44)
[2020-12-05] MEDS: CEFTRIAXONE 1 GM in DEXTROSE 5%-WATER - 50 ML IVPB SCH (09:37)
[2020-12-05] MEDS: DOCUSATE SODIUM 100 MG CAPSULE (FP) PO SCH ×2 (09:37→21:44)
[2020-12-05] MEDS ORDERED: SPIRONOLACTONE 25 MG TABLET PO SCH (10:00)
[2020-12-05] MEDS ORDERED: POLYETHYLENE GLYCOL 3350 119 GM BTL PO SCH (10:00)
[2020-12-05] MEDS ORDERED: PATIENT'S OWN MEDICATION (NON-FORMULARY) (Oxycodone Hcl/Acetaminophen [Oxycodone-Acetamino PO PRN (10:50)
[2020-12-05] MEDS ORDERED: ACETAMINOPHEN 325 MG TABLET (FP) PO PRN (11:00)
[2020-12-05] MEDS: oxyCODONE HCL 10 MG SUSTAINED ACTING TABLET PO SCH ×2 (11:20→22:08)
[2020-12-05] MEDS: VENLAFAXINE HCL 75 MG E.R. CAPSULES PO SCH (11:20)
[2020-12-05] MEDS: PANTOPRAZOLE 40 MG TABLET PO SCH (11:20)
[2020-12-05] MEDS: busPIRone HCL 10 MG TABLET (FP) PO SCH ×2 (11:21→21:45)
[2020-12-05] MEDS ORDERED: SODIUM PHOSPHATE/NA BIPHOS 133 ML ENEMA PR ONE (13:52)
[2020-12-05] MEDS: POLYETHYLENE GLYCOL 3350 119 GM BTL PO SCH (14:37)
[2020-12-05] MEDS: hydrALAZINE HCL 10 MG TABLET PO SCH ×2 (14:38→21:44)
[2020-12-05] MEDS ORDERED: PT OWN MED DRAWER 7, Y5N ONE (20:02)
[2020-12-05] MEDS ORDERED: MELATONIN 5 MG TABLETS PO ONE (20:59)
[2020-12-05] MEDS: SENNOSIDES 8.6MG TABLET (FP) PO SCH (21:41)
[2020-12-05] MEDS: ACETAMINOPHEN 325 MG TABLET (FP) PO PRN (21:42)
[2020-12-06] MEDS: oxyCODONE HCL 5 MG TABLET PO PRN ×3 (04:37→18:14)
[2020-12-06] MEDS: hydrALAZINE HCL 10 MG TABLET PO SCH ×3 (06:01→21:49)
[2020-12-06] MEDS: GABAPENTIN 400 MG CAPSULE PO SCH ×3 (06:01→21:49)
[2020-12-06] MEDS: INSULIN SLIDING SCALE (NOVOLOG) 1 VIAL SQ SCH ×4 (07:18→23:40)
[2020-12-06 07:58] LABS: HEMATOCRIT 27.3 % (32.4-45.2); HEMOGLOBIN 8.7 GM/dL (10.7-15.3); MCH 24.3 pg (25.7-33.7); MCHC 31.8 g/dl (32.0-36.0); MEAN CELL VOLUME 76.4 fl (80-96); MEAN PLT VOLUME 7.3 fl (7.5-11.1); PLATELET COUNT 338 K/MM3 (134-434); RBC 3.57 M/mm3 (3.60-5.2); RDW 16.3 % (11.6-15.6); WHITE BLOOD COUNT 7.7 K/mm3 (4.0-10.0)
[2020-12-06 08:13] LABS: BLOOD UREA NITROGEN 28.5 mg/dL (7-18); MAGNESIUM 2.2 mg/dL (1.8-2.4)
[2020-12-06 08:17] LABS: CREATININE 1.7 mg/dL (0.55-1.3); PHOSPHOROUS 3.9 mg/dL (2.5-4.9)
[2020-12-06 08:18] LABS: BILIRUBIN,TOTAL 0.3 mg/dL (0.2-1); TOT PROT 7.2 g/dl (6.4-8.2)
[2020-12-06] MEDS: oxyCODONE HCL 10 MG SUSTAINED ACTING TABLET PO SCH ×2 (09:00→21:46)
[2020-12-06] MEDS ORDERED: cefTRIAXone SODIUM 1 GM VIAL ONE (11:06)
[2020-12-06] MEDS ORDERED: DEXTROSE 5%-WATER - 50 ML IVPB ONE (11:06)
[2020-12-06] MEDS ORDERED: PT OWN MED DRAWER 7, Y5N ONE ×5 (11:06→19:48)
[2020-12-06] MEDS: CEFTRIAXONE 1 GM in DEXTROSE 5%-WATER - 50 ML IVPB SCH (11:08)
[2020-12-06] MEDS: DOCUSATE SODIUM 100 MG CAPSULE (FP) PO SCH ×2 (11:09→21:48)
[2020-12-06] MEDS: PANTOPRAZOLE 40 MG TABLET PO SCH (11:09)
[2020-12-06] MEDS: CARVEDILOL 25 MG TABLET (FP) PO SCH ×2 (11:09→21:49)
[2020-12-06] MEDS: APIXABAN 5 MG TABLET PO SCH ×2 (11:09→21:49)
[2020-12-06] MEDS: VENLAFAXINE HCL 75 MG E.R. CAPSULES PO SCH (11:09)
[2020-12-06] MEDS: BUSPIRONE HCL 10 MG, BUSPIRONE HCL 5 MG PO SCH ×2 (11:10→23:36)
[2020-12-06] MEDS: POLYETHYLENE GLYCOL 3350 119 GM BTL PO SCH (11:12)
[2020-12-06] MEDS: LIDOCAINE 5% TOPICAL PATCH TP SCH (16:42)
[2020-12-06] MEDS: MOMETASONE FUROATE 220 MCG/IH INHALER IH SCH (21:49)
[2020-12-06] MEDS: SENNOSIDES 8.6MG TABLET (FP) PO SCH (21:49)
[2020-12-06] MEDS: LIDOCAINE PATCH REMOVAL MC SCH (21:52)
[2020-12-07] MEDS: oxyCODONE HCL 5 MG TABLET PO PRN ×3 (01:08→17:48)
[2020-12-07] MEDS: hydrALAZINE HCL 10 MG TABLET PO SCH ×3 (06:03→22:58)
[2020-12-07] MEDS: ACETAMINOPHEN 325 MG TABLET (FP) PO PRN ×3 (06:03→23:17)
[2020-12-07] MEDS: GABAPENTIN 400 MG CAPSULE PO SCH ×3 (06:03→23:00)
[2020-12-07] MEDS: INSULIN SLIDING SCALE (NOVOLOG) 1 VIAL SQ SCH ×4 (06:08→23:12)
[2020-12-07 08:38] LABS: HEMATOCRIT 28.7 % (32.4-45.2); HEMOGLOBIN 9.1 GM/dL (10.7-15.3); MCH 24.2 pg (25.7-33.7); MCHC 31.7 g/dl (32.0-36.0); MEAN CELL VOLUME 76.3 fl (80-96); MEAN PLT VOLUME 7.5 fl (7.5-11.1); PLATELET COUNT 365 K/MM3 (134-434); RBC 3.76 M/mm3 (3.60-5.2); RDW 16.5 % (11.6-15.6); WHITE BLOOD COUNT 9.3 K/mm3 (4.0-10.0)
[2020-12-07 08:52] LABS: BLOOD UREA NITROGEN 30.5 mg/dL (7-18); CALCIUM 8.4 mg/dL (8.5-10.1)
[2020-12-07 08:55] LABS: CREATININE 1.5 mg/dL (0.55-1.3)
[2020-12-07] MEDS ORDERED: cefTRIAXone SODIUM 1 GM VIAL ONE (10:15)
[2020-12-07] MEDS ORDERED: DEXTROSE 5%-WATER - 50 ML IVPB ONE (10:16)
[2020-12-07] MEDS: PANTOPRAZOLE 40 MG TABLET PO SCH (10:19)
[2020-12-07] MEDS: oxyCODONE HCL 10 MG SUSTAINED ACTING TABLET PO SCH ×2 (10:19→23:00)
[2020-12-07] MEDS: VENLAFAXINE HCL 75 MG E.R. CAPSULES PO SCH (10:19)
[2020-12-07] MEDS: CARVEDILOL 25 MG TABLET (FP) PO SCH ×2 (10:19→22:59)
[2020-12-07] MEDS: APIXABAN 5 MG TABLET PO SCH ×2 (10:19→22:59)
[2020-12-07] MEDS: DOCUSATE SODIUM 100 MG CAPSULE (FP) PO SCH ×2 (10:20→22:59)
[2020-12-07] MEDS: CEFTRIAXONE 1 GM in DEXTROSE 5%-WATER - 50 ML IVPB SCH (10:20)
[2020-12-07] MEDS ORDERED: PT OWN MED DRAWER 7, Y5N ONE ×4 (10:28→20:56)
[2020-12-07] MEDS: POLYETHYLENE GLYCOL 3350 119 GM BTL PO SCH (10:33)
[2020-12-07] MEDS: LIDOCAINE 5% TOPICAL PATCH TP SCH (10:33)
[2020-12-07] MEDS: BUSPIRONE HCL 10 MG, BUSPIRONE HCL 5 MG PO SCH ×2 (10:36→23:01)
[2020-12-07] MEDS: SENNOSIDES 8.6MG TABLET (FP) PO SCH (22:59)
[2020-12-07] MEDS: MOMETASONE FUROATE 220 MCG/IH INHALER IH SCH (23:03)
[2020-12-07] MEDS: LIDOCAINE PATCH REMOVAL MC SCH (23:08)
[2020-12-08] MEDS: oxyCODONE HCL 5 MG TABLET PO PRN ×4 (01:09→23:05)
[2020-12-08] MEDS: ACETAMINOPHEN 325 MG TABLET (FP) PO PRN (04:25)
[2020-12-08] MEDS: hydrALAZINE HCL 10 MG TABLET PO SCH ×3 (05:15→21:19)
[2020-12-08] MEDS: GABAPENTIN 400 MG CAPSULE PO SCH ×3 (05:15→21:19)
[2020-12-08] MEDS: INSULIN SLIDING SCALE (NOVOLOG) 1 VIAL SQ SCH ×4 (06:47→21:35)
[2020-12-08 08:50] LABS: HEMATOCRIT 27.8 % (32.4-45.2); HEMOGLOBIN 8.8 GM/dL (10.7-15.3); MCH 24.2 pg (25.7-33.7); MCHC 31.5 g/dl (32.0-36.0); MEAN PLT VOLUME 7.3 fl (7.5-11.1); PLATELET COUNT 345 K/MM3 (134-434); RBC 3.61 M/mm3 (3.60-5.2); RDW 16.7 % (11.6-15.6); WHITE BLOOD COUNT 7.5 K/mm3 (4.0-10.0)
[2020-12-08 09:17] LABS: CALCIUM 8.2 mg/dL (8.5-10.1)
[2020-12-08 09:18] LABS: ALBUMIN 3.3 g/dl (3.4-5.0); BLOOD UREA NITROGEN 28.5 mg/dL (7-18)
[2020-12-08 09:21] LABS: CREATININE 1.5 mg/dL (0.55-1.3)
[2020-12-08 09:22] LABS: TOT PROT 7.5 g/dl (6.4-8.2)
[2020-12-08 09:23] LABS: BILIRUBIN,TOTAL 0.3 mg/dL (0.2-1)
[2020-12-08] MEDS ORDERED: CEFPODOXIME PROXETIL 100 MG TABLET PO SCH (10:00)
[2020-12-08] MEDS: APIXABAN 5 MG TABLET PO SCH ×2 (10:38→21:19)
[2020-12-08] MEDS: LIDOCAINE 5% TOPICAL PATCH TP SCH (10:38)
[2020-12-08] MEDS: oxyCODONE HCL 10 MG SUSTAINED ACTING TABLET PO SCH ×2 (10:39→21:21)
[2020-12-08] MEDS: VENLAFAXINE HCL 75 MG E.R. CAPSULES PO SCH (10:39)
[2020-12-08] MEDS: PANTOPRAZOLE 40 MG TABLET PO SCH (10:39)
[2020-12-08] MEDS: BUSPIRONE HCL 10 MG, BUSPIRONE HCL 5 MG PO SCH ×2 (10:40→21:21)
[2020-12-08] MEDS: DOCUSATE SODIUM 100 MG CAPSULE (FP) PO SCH ×2 (10:40→21:19)
[2020-12-08] MEDS: CARVEDILOL 25 MG TABLET (FP) PO SCH ×2 (10:41→21:21)
[2020-12-08] MEDS: SPIRONOLACTONE 25 MG TABLET PO SCH (10:41)
[2020-12-08] MEDS: POLYETHYLENE GLYCOL 3350 119 GM BTL PO SCH (10:43)
[2020-12-08] MEDS: CEFPODOXIME PROXETIL 100 MG TABLET PO SCH ×2 (10:43→21:23)
[2020-12-08] MEDS ORDERED: PT OWN MED DRAWER 7, Y5N ONE ×2 (14:49→20:21)
[2020-12-08] MEDS: FAMOTIDINE 20 MG TABLET PO SCH (14:50)
[2020-12-08] MEDS: SENNOSIDES 8.6MG TABLET (FP) PO SCH (21:19)
[2020-12-08] MEDS: MOMETASONE FUROATE 220 MCG/IH INHALER IH SCH (21:24)
[2020-12-08] MEDS: LIDOCAINE PATCH REMOVAL MC SCH (21:36)
[2020-12-09] MEDS ORDERED: PT OWN MED DRAWER 7, Y5N ONE ×2 (00:54→09:18)
[2020-12-09] MEDS: oxyCODONE HCL 5 MG TABLET PO PRN ×2 (05:21→11:49)
[2020-12-09] MEDS: hydrALAZINE HCL 10 MG TABLET PO SCH (05:21)
[2020-12-09] MEDS: GABAPENTIN 400 MG CAPSULE PO SCH (05:21)
[2020-12-09] MEDS: INSULIN SLIDING SCALE (NOVOLOG) 1 VIAL SQ SCH ×2 (06:07→11:48)
[2020-12-09 07:13] VITALS: BP 115/88; PULSE 80; TEMP 98.1
[2020-12-09] MEDS: SPIRONOLACTONE 25 MG TABLET PO SCH (09:31)
[2020-12-09] MEDS: VENLAFAXINE HCL 75 MG E.R. CAPSULES PO SCH (09:32)
[2020-12-09] MEDS: FAMOTIDINE 20 MG TABLET PO SCH (09:32)
[2020-12-09] MEDS: BUSPIRONE HCL 10 MG, BUSPIRONE HCL 5 MG PO SCH (09:32)
[2020-12-09] MEDS: PANTOPRAZOLE 40 MG TABLET PO SCH (09:32)
[2020-12-09] MEDS: DOCUSATE SODIUM 100 MG CAPSULE (FP) PO SCH (09:32)
[2020-12-09] MEDS: CARVEDILOL 25 MG TABLET (FP) PO SCH (09:32)
[2020-12-09] MEDS: APIXABAN 5 MG TABLET PO SCH (09:32)
[2020-12-09] MEDS: LIDOCAINE 5% TOPICAL PATCH TP SCH (09:32)
[2020-12-09] MEDS: oxyCODONE HCL 10 MG SUSTAINED ACTING TABLET PO SCH (09:32)
[2020-12-09] MEDS: POLYETHYLENE GLYCOL 3350 119 GM BTL PO SCH (09:33)
[2020-12-09] MEDS: CEFPODOXIME PROXETIL 100 MG TABLET PO SCH (09:34)
== END 2020-12-09 14:00 | disposition home or self-care (01) | DRG 872 ==
LOC: JER 15:46 → JERBED 23:07 → J8W 12-05 02:40
PROVIDERS: ADMIT Hospitalist; ATTEND Internal Medicine
DX: A41.9 Sepsis, unspecified organism (principal); N39.0 Urinary tract infection, site not specified; I50.22 Chronic systolic (congestive) heart failure; I42.0 Dilated cardiomyopathy; Z68.42 Body mass index [BMI] 45.0-49.9, adult; R11.2 Nausea with vomiting, unspecified; D50.9 Iron deficiency anemia, unspecified; K80.20 Calculus of gallbladder without cholecystitis without obstruction; K56.41 Fecal impaction; K21.9 Gastro-esophageal reflux disease without esophagitis; E11.65 Type 2 diabetes mellitus with hyperglycemia; E66.01 Morbid (severe) obesity due to excess calories; I10 Essential (primary) hypertension; E78.5 Hyperlipidemia, unspecified; I25.10 Atherosclerotic heart disease of native coronary artery without angina pectoris; F41.9 Anxiety disorder, unspecified; K80.80 Other cholelithiasis without obstruction
CPT/HCPCS: 36415; 71045-TC-FY; 73630-TC-RT-FY; 74177-TC; 76705-TC; 80048; 80053; 81003; 82550; 82803; 82962; 83036; 83605; 83690; 83735; 83880; 84100; 84484; 85025; 85027; 87086; 87186; 93005; 93010; 97116-GP; 97161-GP; 99285-25; C9803; J0131; Q9967; U0003; U0005

== ENCOUNTER 2020-12-17 10:08 | Inpatient (IN) | payer OTHER ==
[2020-12-17 10:25] VITALS: BMI 43.5
[2020-12-17] MEDS ORDERED: ACETAMINOPHEN 1000 MG/100 ML VIAL (NON FORMULARY) IVPB ONE (10:55)
[2020-12-17] MEDS ORDERED: ACETAMINOPHEN INJECTION 100 ML IVPB ONE (10:59)
[2020-12-17] MEDS ORDERED: HYDROmorphone HCL CARPU-JECT 2 MG/1 ML DISP.SYRIN IVPUSH ONE (11:18)
[2020-12-17] MEDS ORDERED: ACETAMINOPHEN 325 MG TABLET (FP) PO ONE (11:41)
[2020-12-17] MEDS ORDERED: HYDROmorphone HCl 2 MG/ML VIAL ONE (12:05)
[2020-12-17] MEDS ORDERED: ACETAMINOPHEN 325 MG TABLET (FP) ONE ×2 (12:05→22:19)
[2020-12-17 12:13] LABS: HEMOGLOBIN 8.8 GM/dL (10.7-15.3); MCH 24.2 pg (25.7-33.7); MCHC 31.5 g/dl (32.0-36.0); MEAN PLT VOLUME 7.4 fl (7.5-11.1); PLATELET COUNT 387 K/MM3 (134-434); RBC 3.64 M/mm3 (3.60-5.2); RDW 16.5 % (11.6-15.6); WHITE BLOOD COUNT 9.5 K/mm3 (4.0-10.0)
[2020-12-17 12:15] LABS: INR 1.06 (0.83-1.09); PROTHROMBIN TIME (PATIENT) 12.8 SEC (9.7-13.0)
[2020-12-17 12:45] LABS: ALBUMIN 3.6 g/dl (3.4-5.0); BLOOD UREA NITROGEN 24.6 mg/dL (7-18); CALCIUM 8.4 mg/dL (8.5-10.1)
[2020-12-17 12:48] LABS: CREATININE 1.5 mg/dL (0.55-1.3)
[2020-12-17 12:50] LABS: BILIRUBIN,TOTAL 0.6 mg/dL (0.2-1); TOT PROT 7.8 g/dl (6.4-8.2)
[2020-12-17] MEDS ORDERED: PATIENT'S OWN MEDICATION (NON-FORMULARY) (Oxycodone Hcl/Acetaminophen [Oxycodone-Acetamino PO PRN (14:36)
[2020-12-17] MEDS ORDERED: ACETAMINOPHEN 325 MG TABLET (FP) PO PRN (15:00)
[2020-12-17 16:09] LABS: PH,URINE 5.5 (5.0-8.0); URINE APPEARANCE CLEAR; URINE BILIRUBIN NEGATIVE (NEGATIVE); URINE COLOR YELLOW; URINE GLUCOSE (UA) NEGATIVE (NEGATIVE); URINE KETONE NEGATIVE (NEGATIVE); URINE LEUK ESTERASE NEGATIVE (NEGATIVE); URINE NITRITE NEGATIVE (NEGATIVE); URINE PROTEIN TRACE (NEGATIVE); URINE UROBILINOGEN 0.2 mg/dL (0.2-1.0)
[2020-12-17] MEDS ORDERED: GABAPENTIN 100 MG CAPSULE ONE ×2 (17:16→22:20)
[2020-12-17] MEDS ORDERED: oxyCODONE HCL 5 MG TABLET ONE ×2 (17:16→23:09)
[2020-12-17] MEDS: GABAPENTIN 400 MG CAPSULE PO SCH ×2 (17:21→22:32)
[2020-12-17] MEDS: oxyCODONE HCL 5 MG TABLET PO PRN ×2 (17:21→23:15)
[2020-12-17] MEDS: INSULIN SLIDING SCALE (NOVOLOG) 1 VIAL SQ SCH ×2 (19:14→23:14)
[2020-12-17] MEDS ORDERED: MORPHINE SULFATE 2 MG/ML VIAL ONE (19:36)
[2020-12-17] MEDS: morphine SULFATE 4 MG/ML VIAL IVPUSH PRN (19:41)
[2020-12-17] MEDS ORDERED: busPIRone HCL 10 MG TABLET (FP) PO SCH (22:00)
[2020-12-17] MEDS ORDERED: APIXABAN 5 MG TABLET ONE (22:19)
[2020-12-17] MEDS ORDERED: busPIRone HCL 5 MG TABLET ONE (22:20)
[2020-12-17] MEDS ORDERED: CARVEDILOL 12.5 MG TABLET (FP) ONE (22:22)
[2020-12-17] MEDS: APIXABAN 5 MG TABLET PO SCH (22:32)
[2020-12-17] MEDS: CARVEDILOL 25 MG TABLET (FP) PO SCH (22:32)
[2020-12-17] MEDS: MOMETASONE FUROATE 220 MCG/IH INHALER IH SCH (23:14)
[2020-12-17] MEDS: hydrALAZINE HCL 10 MG TABLET PO SCH (23:15)
[2020-12-18] MEDS ORDERED: HYDROmorphone HCL CARPU-JECT 2 MG/1 ML DISP.SYRIN IVPUSH ONE (00:07)
[2020-12-18] MEDS ORDERED: HYDROmorphone HCl 2 MG/ML VIAL ONE (00:11)
[2020-12-18 00:53] LABS: BLOOD UREA NITROGEN 25.2 mg/dL (7-18); CALCIUM 8.3 mg/dL (8.5-10.1)
[2020-12-18 00:57] LABS: CREATININE 1.5 mg/dL (0.55-1.3)
[2020-12-18] MEDS ORDERED: MORPHINE SULFATE 2 MG/ML VIAL ONE (05:11)
[2020-12-18] MEDS: morphine SULFATE 4 MG/ML VIAL IVPUSH PRN ×3 (05:40→20:34)
[2020-12-18 07:10] LABS: BASO % 0.5 % (0-2.0); HEMOGLOBIN 8.9 GM/dL (10.7-15.3); LYMPH % 20.3 % (8-40); MCH 24.3 pg (25.7-33.7); MCHC 31.7 g/dl (32.0-36.0); MEAN CELL VOLUME 76.8 fl (80-96); MONO % 8.8 % (3.8-10.2); NEUT % 63.4 % (42.8-82.8); PLATELET COUNT 359 K/MM3 (134-434); RBC 3.65 M/mm3 (3.60-5.2); RDW 16.4 % (11.6-15.6); WHITE BLOOD COUNT 8.6 K/mm3 (4.0-10.0)
[2020-12-18 07:36] LABS: ALBUMIN 3.4 g/dl (3.4-5.0); BLOOD UREA NITROGEN 25.8 mg/dL (7-18); CALCIUM 8.4 mg/dL (8.5-10.1)
[2020-12-18 07:37] LABS: MAGNESIUM 2.2 mg/dL (1.8-2.4)
[2020-12-18 07:39] LABS: CREATININE 1.4 mg/dL (0.55-1.3); PHOSPHOROUS 4.1 mg/dL (2.5-4.9)
[2020-12-18 07:40] LABS: BILIRUBIN,TOTAL 0.4 mg/dL (0.2-1); TOT PROT 7.7 g/dl (6.4-8.2)
[2020-12-18] MEDS ORDERED: VENLAFAXINE HCL 75 MG E.R. CAPSULES PO SCH (10:00)
[2020-12-18] MEDS ORDERED: SPIRONOLACTONE 25 MG TABLET PO SCH (10:00)
[2020-12-18] MEDS ORDERED: PANTOPRAZOLE 40 MG TABLET PO SCH (10:00)
[2020-12-18] MEDS ORDERED: ENOXAPARIN NA (PORCINE) 40 MG/0.4 ML DISP.SYRIN SQ SCH (10:00)
[2020-12-18] MEDS ORDERED: busPIRone HCL 10 MG TABLET (FP) ONE ×2 (11:26→21:02)
[2020-12-18] MEDS ORDERED: busPIRone HCL 5 MG TABLET ONE ×2 (11:26→21:02)
[2020-12-18] MEDS: hydrALAZINE HCL 10 MG TABLET PO SCH ×3 (11:47→21:26)
[2020-12-18] MEDS: GABAPENTIN 400 MG CAPSULE PO SCH ×3 (11:48→21:25)
[2020-12-18] MEDS: INSULIN SLIDING SCALE (NOVOLOG) 1 VIAL SQ SCH ×4 (11:48→21:24)
[2020-12-18] MEDS: CARVEDILOL 25 MG TABLET (FP) PO SCH ×2 (11:48→21:26)
[2020-12-18] MEDS: BUSPIRONE HCL 10 MG, BUSPIRONE HCL 5 MG PO SCH ×2 (11:48→21:25)
[2020-12-18] MEDS: APIXABAN 5 MG TABLET PO SCH ×2 (11:48→21:26)
[2020-12-18] MEDS: oxyCODONE HCL 5 MG TABLET PO PRN ×2 (11:49→19:03)
[2020-12-18] MEDS ORDERED: morphine SULFATE 4 MG/ML VIAL IVPUSH ONE (14:30)
[2020-12-18] MEDS: MOMETASONE FUROATE 220 MCG/IH INHALER IH SCH ×2 (21:26→22:49)
[2020-12-18 22:12] LABS: BLOOD UREA NITROGEN 25.5 mg/dL (7-18); CALCIUM 8.3 mg/dL (8.5-10.1)
[2020-12-18 22:15] LABS: CREATININE 1.4 mg/dL (0.55-1.3)
[2020-12-18] MEDS ORDERED: morphine SULFATE 4 MG/ML VIAL IVPUSH PRN (23:28)
[2020-12-18] MEDS ORDERED: ACETAMINOPHEN 325 MG TABLET (FP) PO PRN (23:28)
[2020-12-19] MEDS: MORPHINE SULFATE 2 MG/ML VIAL IVPUSH PRN ×5 (00:27→20:37)
[2020-12-19] MEDS ORDERED: FAMOTIDINE 20 MG TABLET PO ONE (01:00)
[2020-12-19] MEDS: oxyCODONE HCL 5 MG TABLET PO PRN ×4 (02:03→22:17)
[2020-12-19] MEDS: GABAPENTIN 400 MG CAPSULE PO SCH ×3 (05:41→21:13)
[2020-12-19] MEDS: hydrALAZINE HCL 10 MG TABLET PO SCH ×3 (05:41→21:13)
[2020-12-19] MEDS: INSULIN SLIDING SCALE (NOVOLOG) 1 VIAL SQ SCH ×4 (06:08→21:15)
[2020-12-19 07:23] LABS: HEMOGLOBIN 8.4 GM/dL (10.7-15.3); MCH 24.5 pg (25.7-33.7); MCHC 32.2 g/dl (32.0-36.0); MEAN PLT VOLUME 7.3 fl (7.5-11.1); PLATELET COUNT 356 K/MM3 (134-434); RBC 3.42 M/mm3 (3.60-5.2); RDW 16.4 % (11.6-15.6); WHITE BLOOD COUNT 7.5 K/mm3 (4.0-10.0)
[2020-12-19 07:46] LABS: CALCIUM 8.4 mg/dL (8.5-10.1)
[2020-12-19 07:47] LABS: BLOOD UREA NITROGEN 23.3 mg/dL (7-18)
[2020-12-19 07:50] LABS: CREATININE 1.2 mg/dL (0.55-1.3)
[2020-12-19] MEDS ORDERED: busPIRone HCL 5 MG TABLET ONE ×2 (08:58→20:28)
[2020-12-19] MEDS ORDERED: busPIRone HCL 10 MG TABLET (FP) ONE ×2 (08:58→20:28)
[2020-12-19] MEDS: APIXABAN 5 MG TABLET PO SCH ×2 (09:45→21:14)
[2020-12-19] MEDS: SPIRONOLACTONE 25 MG TABLET PO SCH (09:45)
[2020-12-19] MEDS: CARVEDILOL 25 MG TABLET (FP) PO SCH ×2 (09:46→21:13)
[2020-12-19] MEDS: BUSPIRONE HCL 10 MG, BUSPIRONE HCL 5 MG PO SCH ×2 (09:46→21:13)
[2020-12-19] MEDS: PANTOPRAZOLE 40 MG TABLET PO SCH (09:46)
[2020-12-19] MEDS ORDERED: PT OWN MED DRAWER 7, Y5N ONE (09:59)
[2020-12-19] MEDS: VENLAFAXINE HCL 75 MG E.R. CAPSULES PO SCH (10:25)
[2020-12-19] MEDS: MOMETASONE FUROATE 220 MCG/IH INHALER IH SCH (21:14)
[2020-12-20] MEDS: hydrALAZINE HCL 10 MG TABLET PO SCH ×3 (05:26→21:01)
[2020-12-20] MEDS: GABAPENTIN 400 MG CAPSULE PO SCH ×3 (05:26→21:01)
[2020-12-20] MEDS: MORPHINE SULFATE 2 MG/ML VIAL IVPUSH PRN ×2 (06:00→10:41)
[2020-12-20] MEDS: INSULIN SLIDING SCALE (NOVOLOG) 1 VIAL SQ SCH ×4 (06:01→21:04)
[2020-12-20 07:59] LABS: HEMATOCRIT 26.9 % (32.4-45.2); HEMOGLOBIN 8.5 GM/dL (10.7-15.3); MCH 24.3 pg (25.7-33.7); MCHC 31.6 g/dl (32.0-36.0); MEAN CELL VOLUME 77.1 fl (80-96); MEAN PLT VOLUME 6.9 fl (7.5-11.1); PLATELET COUNT 364 K/MM3 (134-434); RBC 3.49 M/mm3 (3.60-5.2); RDW 16.3 % (11.6-15.6); WHITE BLOOD COUNT 7.9 K/mm3 (4.0-10.0)
[2020-12-20] MEDS: oxyCODONE HCL 5 MG TABLET PO PRN ×3 (08:07→20:57)
[2020-12-20 08:23] LABS: BLOOD UREA NITROGEN 25.2 mg/dL (7-18)
[2020-12-20 08:24] LABS: CALCIUM 8.5 mg/dL (8.5-10.1)
[2020-12-20 08:27] LABS: CREATININE 1.4 mg/dL (0.55-1.3)
[2020-12-20] MEDS ORDERED: busPIRone HCL 5 MG TABLET ONE ×2 (10:33→20:28)
[2020-12-20] MEDS ORDERED: busPIRone HCL 10 MG TABLET (FP) ONE ×2 (10:34→20:29)
[2020-12-20] MEDS ORDERED: PT OWN MED DRAWER 7, Y5N ONE ×3 (10:35→17:32)
[2020-12-20] MEDS: BUSPIRONE HCL 10 MG, BUSPIRONE HCL 5 MG PO SCH ×2 (10:43→21:01)
[2020-12-20] MEDS: SPIRONOLACTONE 25 MG TABLET PO SCH (10:43)
[2020-12-20] MEDS: VENLAFAXINE HCL 75 MG E.R. CAPSULES PO SCH (10:44)
[2020-12-20] MEDS: PANTOPRAZOLE 40 MG TABLET PO SCH (10:44)
[2020-12-20] MEDS: APIXABAN 5 MG TABLET PO SCH ×2 (10:44→21:00)
[2020-12-20] MEDS: CARVEDILOL 25 MG TABLET (FP) PO SCH ×2 (10:44→21:01)
[2020-12-20] MEDS ORDERED: ALVIMOPAN 12 MG CAP PO SCH (15:15)
[2020-12-20] MEDS ORDERED: Methylnaltrexone Bromide 12 MG/0.6 ML KIT SQ ONE (16:45)
[2020-12-20] MEDS: morphine SULFATE 4 MG/ML VIAL IVPUSH PRN ×2 (17:37→22:05)
[2020-12-20] MEDS: MOMETASONE FUROATE 220 MCG/IH INHALER IH SCH (21:02)
[2020-12-21] MEDS: hydrALAZINE HCL 10 MG TABLET PO SCH ×3 (06:03→21:36)
[2020-12-21] MEDS: GABAPENTIN 400 MG CAPSULE PO SCH ×3 (06:03→21:36)
[2020-12-21] MEDS: oxyCODONE HCL 5 MG TABLET PO PRN ×2 (06:17→17:33)
[2020-12-21] MEDS: INSULIN SLIDING SCALE (NOVOLOG) 1 VIAL SQ SCH ×4 (06:17→21:41)
[2020-12-21] MEDS ORDERED: busPIRone HCL 5 MG TABLET ONE ×2 (07:46→21:23)
[2020-12-21] MEDS ORDERED: busPIRone HCL 10 MG TABLET (FP) ONE ×2 (07:46→21:23)
[2020-12-21] MEDS: BUSPIRONE HCL 10 MG, BUSPIRONE HCL 5 MG PO SCH ×2 (09:00→21:35)
[2020-12-21] MEDS: PANTOPRAZOLE 40 MG TABLET PO SCH (09:00)
[2020-12-21] MEDS: CARVEDILOL 25 MG TABLET (FP) PO SCH ×2 (09:00→21:36)
[2020-12-21] MEDS: SPIRONOLACTONE 25 MG TABLET PO SCH (09:00)
[2020-12-21] MEDS: APIXABAN 5 MG TABLET PO SCH ×2 (09:01→21:36)
[2020-12-21] MEDS ORDERED: PT OWN MED DRAWER 7, Y5N ONE (09:03)
[2020-12-21] MEDS: VENLAFAXINE HCL 75 MG E.R. CAPSULES PO SCH (09:04)
[2020-12-21] MEDS: morphine SULFATE 4 MG/ML VIAL IVPUSH PRN ×2 (14:54→20:34)
[2020-12-21] MEDS ORDERED: ONDANSETRON 4 MG/2 ML VIAL IVPUSH ONE (21:02)
[2020-12-21] MEDS: MOMETASONE FUROATE 220 MCG/IH INHALER IH SCH (21:36)
[2020-12-21] MEDS ORDERED: MAG HYDROX/AL HYDROX/SIMETH 30 ML UNIT-DOSE CUP PO PRN (22:50)
[2020-12-22] MEDS: morphine SULFATE 4 MG/ML VIAL IVPUSH PRN ×2 (04:37→19:18)
[2020-12-22] MEDS: GABAPENTIN 400 MG CAPSULE PO SCH ×3 (06:18→21:08)
[2020-12-22] MEDS: INSULIN SLIDING SCALE (NOVOLOG) 1 VIAL SQ SCH ×4 (06:18→21:16)
[2020-12-22] MEDS: hydrALAZINE HCL 10 MG TABLET PO SCH ×4 (06:18→21:08)
[2020-12-22] MEDS: oxyCODONE HCL 5 MG TABLET PO PRN ×3 (06:23→21:08)
[2020-12-22] MEDS ORDERED: busPIRone HCL 5 MG TABLET ONE ×2 (10:01→21:02)
[2020-12-22] MEDS ORDERED: busPIRone HCL 10 MG TABLET (FP) ONE ×2 (10:01→21:02)
[2020-12-22] MEDS ORDERED: PT OWN MED DRAWER 7, Y5N ONE ×2 (10:03→13:33)
[2020-12-22] MEDS: SPIRONOLACTONE 25 MG TABLET PO SCH (10:10)
[2020-12-22] MEDS: BUSPIRONE HCL 10 MG, BUSPIRONE HCL 5 MG PO SCH ×2 (10:10→21:08)
[2020-12-22] MEDS: VENLAFAXINE HCL 75 MG E.R. CAPSULES PO SCH (10:10)
[2020-12-22] MEDS: CARVEDILOL 25 MG TABLET (FP) PO SCH ×2 (10:10→21:08)
[2020-12-22] MEDS: APIXABAN 5 MG TABLET PO SCH ×2 (10:10→21:08)
[2020-12-22] MEDS: PANTOPRAZOLE 40 MG TABLET PO SCH (10:10)
[2020-12-22] MEDS: Methylnaltrexone Bromide 12 MG/0.6 ML KIT SQ SCH (13:35)
[2020-12-22] MEDS ORDERED: ONDANSETRON 4 MG/2 ML VIAL IVPUSH ONE ×2 (14:15→20:52)
[2020-12-22] MEDS ORDERED: TRIMETHOBENZAMIDE HCL 200MG/2ML INJ IM ONE (15:13)
[2020-12-22] MEDS: NYSTATIN 100,000 UNIT/GM TOPICAL CREAM 15 GM TUBE TP SCH ×2 (15:20→21:28)
[2020-12-22] MEDS: MOMETASONE FUROATE 220 MCG/IH INHALER IH SCH (21:28)
[2020-12-22] MEDS: SIMETHICONE 40 MG/0.6 ML BOTTLE PO PRN (22:18)
[2020-12-22] MEDS: POLYETHYLENE GLYCOL 3350 119 GM BTL PO SCH (22:19)
[2020-12-23 01:40] LABS: PH,URINE 5.5 (5.0-8.0); URINE APPEARANCE CLEAR; URINE BILIRUBIN NEGATIVE (NEGATIVE); URINE COLOR YELLOW; URINE GLUCOSE (UA) NEGATIVE (NEGATIVE); URINE KETONE NEGATIVE (NEGATIVE); URINE LEUK ESTERASE NEGATIVE (NEGATIVE); URINE NITRITE NEGATIVE (NEGATIVE); URINE PROTEIN NEGATIVE (NEGATIVE); URINE UROBILINOGEN 0.2 mg/dL (0.2-1.0)
[2020-12-23] MEDS: hydrALAZINE HCL 10 MG TABLET PO SCH ×3 (05:39→21:34)
[2020-12-23] MEDS: GABAPENTIN 400 MG CAPSULE PO SCH ×3 (05:39→21:34)
[2020-12-23] MEDS: morphine SULFATE 4 MG/ML VIAL IVPUSH PRN ×3 (05:42→16:14)
[2020-12-23] MEDS: INSULIN SLIDING SCALE (NOVOLOG) 1 VIAL SQ SCH ×4 (06:00→21:39)
[2020-12-23] MEDS ORDERED: busPIRone HCL 5 MG TABLET ONE ×2 (09:11→21:32)
[2020-12-23] MEDS ORDERED: busPIRone HCL 10 MG TABLET (FP) ONE ×2 (09:11→21:32)
[2020-12-23] MEDS ORDERED: PT OWN MED DRAWER 7, Y5N ONE (09:14)
[2020-12-23] MEDS: oxyCODONE HCL 5 MG TABLET PO PRN ×3 (09:15→20:40)
[2020-12-23] MEDS: CARVEDILOL 25 MG TABLET (FP) PO SCH ×2 (10:16→21:34)
[2020-12-23] MEDS: SPIRONOLACTONE 25 MG TABLET PO SCH (10:17)
[2020-12-23] MEDS: PANTOPRAZOLE 40 MG TABLET PO SCH (10:17)
[2020-12-23] MEDS: APIXABAN 5 MG TABLET PO SCH ×2 (10:18→21:34)
[2020-12-23] MEDS: BUSPIRONE HCL 10 MG, BUSPIRONE HCL 5 MG PO SCH ×2 (10:18→21:34)
[2020-12-23] MEDS: SIMETHICONE 40 MG/0.6 ML BOTTLE PO PRN (10:18)
[2020-12-23] MEDS: NYSTATIN 100,000 UNIT/GM TOPICAL CREAM 15 GM TUBE TP SCH ×2 (10:19→21:39)
[2020-12-23] MEDS: VENLAFAXINE HCL 75 MG E.R. CAPSULES PO SCH (10:20)
[2020-12-23] MEDS: POLYETHYLENE GLYCOL 3350 119 GM BTL PO SCH (10:20)
[2020-12-23] MEDS ORDERED: oxyCODONE HCL 5 MG TABLET PO PRN (11:47)
[2020-12-23] MEDS ORDERED: DOCUSATE SODIUM 100 MG CAPSULE (FP) PO ONE (11:51)
[2020-12-23] MEDS ORDERED: GLYCERIN 1 RECTAL SUPPOSITORY, ADULT RC ONE (12:15)
[2020-12-23] MEDS: Methylnaltrexone Bromide 12 MG/0.6 ML KIT SQ SCH (17:51)
[2020-12-23 20:52] VITALS: BP 125/67; PULSE 92; TEMP 98.3
[2020-12-23] MEDS: MOMETASONE FUROATE 220 MCG/IH INHALER IH SCH (21:39)
[2020-12-23] MEDS ORDERED: SENNOSIDES/DOCUSATE COMBO (SENNA PLUS) TABLET (UD) PO PRN (22:00)
[2020-12-23] MEDS ORDERED: POLYETHYLENE GLYCOL 3350 119 GM BTL PO SCH (22:00)
== END 2020-12-23 21:46 | disposition short-term general hospital (02) | DRG 562 ==
LOC: JER 10:08 → JERBED 12:33 → J5S 12-18 11:22 → J4W 12-18 18:52
PROVIDERS: ADMIT Internal Medicine; ATTEND Internal Medicine
DX: S82.102A Unspecified fracture of upper end of left tibia, initial encounter for closed fracture (principal); I26.99 Other pulmonary embolism without acute cor pulmonale; S22.41XA Multiple fractures of ribs, right side, initial encounter for closed fracture; I42.0 Dilated cardiomyopathy; Z68.41 Body mass index [BMI] 40.0-44.9, adult; I50.20 Unspecified systolic (congestive) heart failure; E66.9 Obesity, unspecified; I25.10 Atherosclerotic heart disease of native coronary artery without angina pectoris; S82.402A Unspecified fracture of shaft of left fibula, initial encounter for closed fracture; R33.9 Retention of urine, unspecified; K59.00 Constipation, unspecified; R11.2 Nausea with vomiting, unspecified; K80.20 Calculus of gallbladder without cholecystitis without obstruction; W19.XXXA Unspecified fall, initial encounter; Y93.9 Activity, unspecified; Y92.89 Other specified places as the place of occurrence of the external cause; Y99.9 Unspecified external cause status; I10 Essential (primary) hypertension; E78.5 Hyperlipidemia, unspecified; E11.9 Type 2 diabetes mellitus without complications; F41.9 Anxiety disorder, unspecified; K21.9 Gastro-esophageal reflux disease without esophagitis
CPT/HCPCS: 36415; 73560-TC-LT-FY; 73590-TC-LT-FY; 73610-TC-LT-FY; 76937; 80048; 80053; 81003; 82962; 83735; 84100; 84132; 85025; 85027; 85610; 86682; 86850; 86900; 86901; 87086; 93005; 93010; 99285-25; C9803; U0003; U0005

== ENCOUNTER 2022-01-11 13:16 | Observation (INO) | payer OTHER ==
[2022-01-11 14:27] VITALS: BMI 42.9
[2022-01-11 15:09] LABS: BASO % 0.9 % (0-2.0); EOS % 1.8 % (0-4.5); HEMATOCRIT 31.2 % (32.4-45.2); HEMOGLOBIN 9.7 GM/dL (10.7-15.3); LYMPH % 18.1 % (8-40); MCHC 30.9 g/dl (32.0-36.0); MEAN CELL VOLUME 74.5 fl (80-96); MEAN PLT VOLUME 7.4 fl (7.5-11.1); MONO % 6.9 % (3.8-10.2); NEUT % 72.3 % (42.8-82.8); PLATELET COUNT 443 10^3/uL (134-434); WHITE BLOOD COUNT 7.3 K/mm3 (4.0-10.0)
[2022-01-11] MEDS ORDERED: NALOXONE HCL 0.4 MG/ML VIAL IVPUSH ONE ×2 (15:10→15:13)
[2022-01-11 15:16] LABS: INR 1.28 (0.83-1.09); PROTHROMBIN TIME (PATIENT) 14.7 SEC (9.7-13.0)
[2022-01-11 15:19] LABS: ACTIVATED PTT 36.8 SECONDS (25.2-36.5)
[2022-01-11 15:32] LABS: ALBUMIN 3.5 g/dl (3.4-5.0); BLOOD UREA NITROGEN 23.4 mg/dL (7-18); CALCIUM 9.7 mg/dL (8.5-10.1); MAGNESIUM 2.1 mg/dL (1.8-2.4)
[2022-01-11 15:35] LABS: CREATININE 1.2 mg/dL (0.55-1.3)
[2022-01-11 15:37] LABS: BILIRUBIN,TOTAL 0.6 mg/dL (0.2-1); TOT PROT 8.4 g/dl (6.4-8.2)
[2022-01-11 16:25] LABS: EPI CELLS 21 /uL (0-25.1); HYALINE CASTS 1 /uL (0-3.1); PH,URINE 6.5 (5.0-8.0); URINE APPEARANCE CLEAR; URINE BACTERIA 92 /uL (0-1359); URINE BILIRUBIN NEGATIVE (NEGATIVE); URINE COLOR YELLOW; URINE GLUCOSE (UA) NEGATIVE (NEGATIVE); URINE KETONE NEGATIVE (NEGATIVE); URINE LEUK ESTERASE NEGATIVE (NEGATIVE); URINE NITRITE NEGATIVE (NEGATIVE); URINE PROTEIN 1+ (NEGATIVE); URINE RBC 2 /uL (0-23.9); URINE UROBILINOGEN 0.2 mg/dL (0.2-1.0); URINE WBC 13 /uL (0-25.8)
[2022-01-11] MEDS ORDERED: SODIUM CHLORIDE 0.9% 500 ML INFUS.BAG IV ONE (16:45)
[2022-01-11] MEDS ORDERED: MECLIZINE HCL 25 MG TABLET (FP) PO ONE (17:12)
[2022-01-11] MEDS ORDERED: MECLIZINE HCL 25 MG TABLET (FP) ONE (17:14)
[2022-01-11] MEDS: APIXABAN 5 MG TABLET PO SCH (22:30)
[2022-01-11] MEDS: hydrALAZINE HCL 10 MG TABLET PO SCH (22:30)
[2022-01-11] MEDS: CARVEDILOL 25 MG TABLET (FP) PO SCH (22:30)
[2022-01-12 07:32] LABS: BASO % 0.9 % (0-2.0); EOS % 1.2 % (0-4.5); HEMATOCRIT 32.7 % (32.4-45.2); HEMOGLOBIN 10.1 GM/dL (10.7-15.3); LYMPH % 17.9 % (8-40); MCH 22.6 pg (25.7-33.7); MCHC 30.8 g/dl (32.0-36.0); MEAN CELL VOLUME 73.4 fl (80-96); MEAN PLT VOLUME 6.8 fl (7.5-11.1); MONO % 8.9 % (3.8-10.2); NEUT % 71.1 % (42.8-82.8); PLATELET COUNT 464 10^3/uL (134-434); RBC 4.45 M/mm3 (3.60-5.2); RDW 15.6 % (11.6-15.6); WHITE BLOOD COUNT 8.2 K/mm3 (4.0-10.0)
[2022-01-12 07:52] LABS: BLOOD UREA NITROGEN 16.4 mg/dL (7-18); CALCIUM 9.5 mg/dL (8.5-10.1); MAGNESIUM 1.8 mg/dL (1.8-2.4)
[2022-01-12 07:53] LABS: ALBUMIN 3.5 g/dl (3.4-5.0)
[2022-01-12 07:57] LABS: BILIRUBIN,TOTAL 0.5 mg/dL (0.2-1); TOT PROT 8.2 g/dl (6.4-8.2)
[2022-01-12] MEDS ORDERED: APIXABAN 5 MG TABLET ONE (08:56)
[2022-01-12] MEDS ORDERED: CARVEDILOL 25 MG TABLET (FP) ONE (08:56)
[2022-01-12] MEDS ORDERED: SPIRONOLACTONE 25 MG TABLET ONE (08:56)
[2022-01-12] MEDS ORDERED: hydrALAZINE HCL 10 MG TABLET ONE (08:56)
[2022-01-12] MEDS: APIXABAN 5 MG TABLET PO SCH (09:00)
[2022-01-12] MEDS: hydrALAZINE HCL 10 MG TABLET PO SCH (09:00)
[2022-01-12] MEDS: CARVEDILOL 25 MG TABLET (FP) PO SCH (09:00)
[2022-01-12] MEDS ORDERED: SPIRONOLACTONE 25 MG TABLET PO SCH (10:00)
[2022-01-12 10:36] VITALS: BP 142/97; PULSE 96; TEMP 98
== END 2022-01-12 10:40 | disposition home or self-care (01) ==
LOC: JER 13:16 → JERBED 19:01
PROVIDERS: ADMIT Internal Medicine; ATTEND Internal Medicine
PROC: 3E033NZ Introduction of Analgesics, Hypnotics, Sedatives into Peripheral Vein, Percutaneous Approach (ICD-10-PCS; principal; 2022-01-11)
DX: I11.0 Hypertensive heart disease with heart failure (principal); I50.21 Acute systolic (congestive) heart failure; I25.10 Atherosclerotic heart disease of native coronary artery without angina pectoris; E78.5 Hyperlipidemia, unspecified; K21.9 Gastro-esophageal reflux disease without esophagitis; D64.9 Anemia, unspecified; G93.41 Metabolic encephalopathy; I42.0 Dilated cardiomyopathy; K80.80 Other cholelithiasis without obstruction; R20.0 Anesthesia of skin; Z86.711 Personal history of pulmonary embolism; Z68.41 Body mass index [BMI] 40.0-44.9, adult; Z79.01 Long term (current) use of anticoagulants; E66.01 Morbid (severe) obesity due to excess calories
CPT/HCPCS: 36415; 70450-TC; 80053; 80061; 81003; 83735; 84443; 84484; 85025; 85610; 85730; 87086; 93005; 93010; 96374; 99285-25; C9803-CS; G0378; U0003; U0005

== ENCOUNTER 2023-06-23 03:51 | Day surgery (SDC) | payer OTHER ==
[2023-05-02 10:51] VITALS: BMI 43.5
[~2023-06-23 03:51] MED LIST: ACETAMINOPHEN 500 MG TABLET (FP) PO PRN
[2023-06-23] MEDS ORDERED: LIDOCAINE HCL/PF 2% SDV 5ML VIAL ONE (07:16)
[2023-06-23 07:36] VITALS: RESP 20; TEMP 97.7
[2023-06-23] MEDS ORDERED: ACETAMINOPHEN 500 MG TABLET (FP) PO PRN (09:23)
[2023-06-23] MEDS ORDERED: LIDOCAINE HCL/PF 2% SDV 5ML VIAL INF ONE (09:51)
[2023-06-23 11:54] VITALS: BP 112/65; PULSE 73
== END 2023-06-23 11:05 | disposition home or self-care (01) ==
LOC: JASU-SURG 03:51
PROVIDERS: ATTEND Pain Medicine Pain Medicine
PROC: 015D3ZZ Destruction of Femoral Nerve, Percutaneous Approach (ICD-10-PCS; principal; 2023-06-23 09:30)
DX: M25.562 Pain in left knee (principal)

== ENCOUNTER 2023-07-18 14:38 | Observation (INO) | payer OTHER ==
[2023-07-18 16:25] LABS: BASO % 0.9 % (0-2.0); EOS % 5.1 % (0-4.5); HEMATOCRIT 19.5 % (32.4-45.2); LYMPH % 15.6 % (8-40); MCHC 28.8 g/dl (32.0-36.0); MEAN PLT VOLUME 7.1 fl (7.5-11.1); MONO % 8.3 % (3.8-10.2); NEUT % 70.1 % (42.8-82.8); PLATELET COUNT 540 10^3/uL (134-434); RBC 3.25 M/mm3 (3.60-5.2); RDW 18.7 % (11.6-15.6); WHITE BLOOD COUNT 9.6 K/mm3 (4.0-10.0)
[2023-07-18 16:28] LABS: INR 1.61 (0.83-1.09); PROTHROMBIN TIME (PATIENT) 18.6 SEC (9.7-13.0)
[2023-07-18 16:29] LABS: MCH 17.3 pg (25.7-33.7)
[2023-07-18 16:31] LABS: HEMOGLOBIN 5.6 GM/dL (10.7-15.3)
[2023-07-18 16:32] LABS: ACTIVATED PTT 36.1 SECONDS (25.2-36.5)
[2023-07-18 16:44] LABS: POTASSIUM 4.3 mmol/L (3.5-5.1)
[2023-07-18 16:46] LABS: CALCIUM 9.6 mg/dL (8.5-10.1)
[2023-07-18 16:47] LABS: ALBUMIN 3.6 g/dl (3.4-5.0); BLOOD UREA NITROGEN 19.1 mg/dL (7-18)
[2023-07-18 16:50] LABS: CREATININE 1.3 mg/dL (0.55-1.3)
[2023-07-18 16:51] LABS: BILIRUBIN,TOTAL 0.4 mg/dL (0.2-1); TOT PROT 7.8 g/dl (6.4-8.2)
[2023-07-18 18:09] LABS: RETICULOCYTES 1.72 % (0.5-1.5)
[2023-07-18 18:29] LABS: ANISOCYTOSIS 3+; MACROCYTOSIS 0
[2023-07-18 21:16] VITALS: BMI 42.7
[2023-07-18] MEDS: CARVEDILOL 25 MG TABLET (FP) PO SCH (21:48)
[2023-07-18] MEDS: INSULIN SLIDING SCALE (NOVOLOG) 1 VIAL SQ SCH (21:50)
[2023-07-18] MEDS: ACETAMINOPHEN 1000 MG/100 ML BAG IVPB PRN (23:20)
[2023-07-19] MEDS: LEVOTHYROXINE NA 25 MCG TABLET (FP) PO SCH (06:25)
[2023-07-19] MEDS: INSULIN SLIDING SCALE (NOVOLOG) 1 VIAL SQ SCH ×4 (06:28→21:34)
[2023-07-19] MEDS: LISINOPRIL 20 MG TABLET PO SCH (09:12)
[2023-07-19] MEDS: amLODIPine BESYLATE 10 MG TABLET (FP) PO SCH (09:18)
[2023-07-19] MEDS: CARVEDILOL 25 MG TABLET (FP) PO SCH ×2 (09:18→21:34)
[2023-07-19] MEDS: IRON SUCROSE INJECTION 200 MG in SODIUM CHLORIDE 90 ML IVPB SCH (10:11)
[2023-07-19] MEDS: ACETAMINOPHEN 1000 MG/100 ML BAG IVPB PRN ×3 (10:11→22:07)
[2023-07-19 12:01] LABS: POTASSIUM 4.1 mmol/L (3.5-5.1)
[2023-07-19 12:05] LABS: CALCIUM 8.9 mg/dL (8.5-10.1)
[2023-07-19 12:06] LABS: BLOOD UREA NITROGEN 16.5 mg/dL (7-18); MAGNESIUM 1.8 mg/dL (1.8-2.4)
[2023-07-19 12:09] LABS: CREATININE 1.2 mg/dL (0.55-1.3)
[2023-07-19] MEDS ORDERED: PANTOPRAZOLE 40 MG TABLET PO ONE (13:45)
[2023-07-19 18:30] LABS: BASO % 0.5 % (0-2.0); EOS % 4.3 % (0-4.5); HEMATOCRIT 25.1 % (32.4-45.2); HEMOGLOBIN 7.6 GM/dL (10.7-15.3); LYMPH % 17.2 % (8-40); MCHC 30.5 g/dl (32.0-36.0); MEAN CELL VOLUME 64.5 fl (80-96); MEAN PLT VOLUME 7.1 fl (7.5-11.1); MONO % 9.7 % (3.8-10.2); NEUT % 68.3 % (42.8-82.8); PLATELET COUNT 508 10^3/uL (134-434); RBC 3.89 M/mm3 (3.60-5.2); RDW 22.8 % (11.6-15.6)
[2023-07-19 18:31] LABS: MCH 19.7 pg (25.7-33.7)
[2023-07-20] MEDS: INSULIN SLIDING SCALE (NOVOLOG) 1 VIAL SQ SCH ×4 (06:24→21:46)
[2023-07-20] MEDS: LEVOTHYROXINE NA 25 MCG TABLET (FP) PO SCH (06:24)
[2023-07-20] MEDS: ACETAMINOPHEN 1000 MG/100 ML BAG IVPB PRN ×3 (06:51→21:38)
[2023-07-20 08:23] LABS: HEMATOCRIT 23.6 % (32.4-45.2); HEMOGLOBIN 7.3 GM/dL (10.7-15.3); MCHC 30.8 g/dl (32.0-36.0); MEAN CELL VOLUME 64.2 fl (80-96); MEAN PLT VOLUME 7.2 fl (7.5-11.1); PLATELET COUNT 497 10^3/uL (134-434); RBC 3.68 M/mm3 (3.60-5.2); RDW 22.4 % (11.6-15.6); WHITE BLOOD COUNT 9.4 K/mm3 (4.0-10.0)
[2023-07-20 08:42] LABS: MCH 19.7 pg (25.7-33.7)
[2023-07-20] MEDS: CARVEDILOL 25 MG TABLET (FP) PO SCH ×2 (10:20→21:38)
[2023-07-20] MEDS: LISINOPRIL 20 MG TABLET PO SCH (10:20)
[2023-07-20] MEDS: amLODIPine BESYLATE 10 MG TABLET (FP) PO SCH (10:20)
[2023-07-20] MEDS: POLYETHYLENE GLYCOL (HEALTHYLAX) 3350 17 GM PACKET PO SCH (10:20)
[2023-07-20] MEDS: PANTOPRAZOLE 40 MG TABLET PO SCH (10:20)
[2023-07-20] MEDS: IRON SUCROSE INJECTION 200 MG in SODIUM CHLORIDE 90 ML IVPB SCH (14:29)
[2023-07-21] MEDS: INSULIN SLIDING SCALE (NOVOLOG) 1 VIAL SQ SCH (06:05)
[2023-07-21] MEDS: LEVOTHYROXINE NA 25 MCG TABLET (FP) PO SCH (06:06)
[2023-07-21] MEDS: PANTOPRAZOLE 40 MG TABLET PO SCH (09:09)
[2023-07-21] MEDS: CARVEDILOL 25 MG TABLET (FP) PO SCH (09:09)
[2023-07-21] MEDS: LISINOPRIL 20 MG TABLET PO SCH (09:09)
[2023-07-21] MEDS: amLODIPine BESYLATE 10 MG TABLET (FP) PO SCH (09:09)
[2023-07-21] MEDS: POLYETHYLENE GLYCOL (HEALTHYLAX) 3350 17 GM PACKET PO SCH (09:13)
[2023-07-21] MEDS: IRON SUCROSE INJECTION 200 MG in SODIUM CHLORIDE 90 ML IVPB SCH (09:21)
[2023-07-21 13:18] VITALS: BP 138/66; PULSE 88; RESP 16; TEMP 98
== END 2023-07-21 10:44 | disposition home or self-care (01) ==
LOC: JER 14:38 → JERBED 17:07 → J6S 19:14
PROVIDERS: ADMIT Internal Medicine; ATTEND Internal Medicine
PROC: 30233N1 Transfusion of Nonautologous Red Blood Cells into Peripheral Vein, Percutaneous Approach (ICD-10-PCS; principal; 2023-07-18)
PROC: 3E033NZ Introduction of Analgesics, Hypnotics, Sedatives into Peripheral Vein, Percutaneous Approach (ICD-10-PCS; 2023-07-18)
PROC: 3E033GC Introduction of Other Therapeutic Substance into Peripheral Vein, Percutaneous Approach (ICD-10-PCS; 2023-07-18)
DX: D50.9 Iron deficiency anemia, unspecified (principal); I25.10 Atherosclerotic heart disease of native coronary artery without angina pectoris; I11.0 Hypertensive heart disease with heart failure; Z79.01 Long term (current) use of anticoagulants; F11.20 Opioid dependence, uncomplicated; E78.5 Hyperlipidemia, unspecified; E11.9 Type 2 diabetes mellitus without complications; M19.90 Unspecified osteoarthritis, unspecified site; E03.9 Hypothyroidism, unspecified; I50.9 Heart failure, unspecified; F32.A Depression, unspecified; G89.29 Other chronic pain; M54.50 Low back pain, unspecified; Z86.711 Personal history of pulmonary embolism
CPT/HCPCS: 0241U-QW; 36415; 36430; 80048; 80053; 82272; 82728; 82962; 83540; 83550; 83735; 84466; 85025; 85027; 85045; 85610; 85730; 86850; 86900; 86901; 86922; 93005; 93010; 96365; 96375; 96376; 99285-25; G0378; J1756; P9038; P9058

== ENCOUNTER 2023-07-31 21:26 | Inpatient (IN) | payer OTHER ==
[2023-07-31 21:34] VITALS: BMI 41.0
[2023-07-31 23:41] LABS: BASO % 1.4 % (0-2.0); EOS % 2.5 % (0-4.5); HEMATOCRIT 36.8 % (32.4-45.2); HEMOGLOBIN 11.6 GM/dL (10.7-15.3); LYMPH % 16.5 % (8-40); MCH 22.5 pg (25.7-33.7); MCHC 31.5 g/dl (32.0-36.0); MEAN CELL VOLUME 71.3 fl (80-96); MONO % 7.4 % (3.8-10.2); NEUT % 72.2 % (42.8-82.8); PLATELET COUNT 527 10^3/uL (134-434); RBC 5.16 M/mm3 (3.60-5.2); RDW 31.3 % (11.6-15.6); WHITE BLOOD COUNT 15.5 K/mm3 (4.0-10.0)
[2023-08-01 00:04] LABS: POTASSIUM 4.1 mmol/L (3.5-5.1)
[2023-08-01 00:06] LABS: ALBUMIN 3.6 g/dl (3.4-5.0); BLOOD UREA NITROGEN 23.6 mg/dL (7-18); MAGNESIUM 1.4 mg/dL (1.8-2.4)
[2023-08-01 00:09] LABS: CREATININE 1.7 mg/dL (0.55-1.3)
[2023-08-01 00:11] LABS: BILIRUBIN,TOTAL 0.4 mg/dL (0.2-1); TOT PROT 8.5 g/dl (6.4-8.2)
[2023-08-01 00:14] LABS: N-TERMINAL BNP 5441.9 pg/ml (5-125)
[2023-08-01 00:16] LABS: LACTIC ACID 2.5 mmol/L (0.4-2.0)
[2023-08-01 00:17] LABS: CALCIUM 10.8 mg/dL (8.5-10.1)
[2023-08-01] MEDS ORDERED: ASPIRIN 81 MG CHEWABLE TABLETS PO ONE (01:29)
[2023-08-01] MEDS ORDERED: ENOXAPARIN NA (PORCINE) 120 MG/0.8 ML DISP.SYRIN SQ SCH ×2 (01:30→09:45)
[2023-08-01] MEDS ORDERED: ASPIRIN 81 MG CHEWABLE TABLETS ONE (02:38)
[2023-08-01] MEDS ORDERED: ENOXAPARIN NA (PORCINE) 40 MG/0.4 ML DISP.SYRIN SQ ONE (02:38)
[2023-08-01] MEDS ORDERED: ENOXAPARIN NA (PORCINE) 100 MG/1 ML DISP.SYRIN SQ ONE (02:38)
[2023-08-01 06:54] LABS: BASO % 1.1 % (0-2.0); EOS % 3.3 % (0-4.5); HEMATOCRIT 32.8 % (32.4-45.2); LYMPH % 28.1 % (8-40); MCH 21.9 pg (25.7-33.7); MCHC 30.4 g/dl (32.0-36.0); MEAN CELL VOLUME 71.9 fl (80-96); MEAN PLT VOLUME 7.2 fl (7.5-11.1); MONO % 8.6 % (3.8-10.2); NEUT % 58.9 % (42.8-82.8); PLATELET COUNT 465 10^3/uL (134-434); RBC 4.57 M/mm3 (3.60-5.2); RDW 30.2 % (11.6-15.6); WHITE BLOOD COUNT 12.8 K/mm3 (4.0-10.0)
[2023-08-01 07:16] LABS: ACTIVATED PTT 47.7 SECONDS (25.2-36.5); INR 1.26 (0.83-1.09); PROTHROMBIN TIME (PATIENT) 14.6 SEC (9.7-13.0)
[2023-08-01 07:18] LABS: CALCIUM 10.2 mg/dL (8.5-10.1)
[2023-08-01 07:20] LABS: BLOOD UREA NITROGEN 23.5 mg/dL (7-18); MAGNESIUM 1.6 mg/dL (1.8-2.4)
[2023-08-01 07:23] LABS: CREATININE 1.5 mg/dL (0.55-1.3); PHOSPHOROUS 4.2 mg/dL (2.5-4.9)
[2023-08-01 08:39] LABS: ANISOCYTOSIS 3+; MACROCYTOSIS 0
[2023-08-01 08:56] LABS: EPI CELLS >36 /uL (0-25.1); HYALINE CASTS 5 /uL (0-3.1); PH,URINE 5.5 (5.0-8.0); URINE APPEARANCE CLOUDY; URINE BACTERIA 48 /uL (0-1359); URINE BILIRUBIN NEGATIVE (NEGATIVE); URINE COLOR YELLOW; URINE GLUCOSE (UA) NEGATIVE (NEGATIVE); URINE KETONE TRACE (NEGATIVE); URINE LEUK ESTERASE NEGATIVE (NEGATIVE); URINE NITRITE NEGATIVE (NEGATIVE); URINE PROTEIN 2+ (NEGATIVE); URINE RBC 19 /uL (0-23.9); URINE UROBILINOGEN 0.2 mg/dL (0.2-1.0); URINE WBC 20 /uL (0-25.8)
[2023-08-01] MEDS ORDERED: PANTOPRAZOLE 20 MG TABLET PO SCH (10:00)
[2023-08-01] MEDS ORDERED: PANTOPRAZOLE 40 MG TABLET PO ONE (11:44)
[2023-08-01] MEDS ORDERED: LEVOTHYROXINE NA 25 MCG TABLET (FP) ONE (11:44)
[2023-08-01] MEDS ORDERED: CARVEDILOL 25 MG TABLET (FP) ONE (11:45)
[2023-08-01] MEDS ORDERED: LORATADINE 10 MG TABLET ONE (11:45)
[2023-08-01] MEDS: LEVOTHYROXINE NA 25 MCG TABLET (FP) PO SCH (11:55)
[2023-08-01] MEDS: LORATADINE 10 MG TABLET PO SCH (11:56)
[2023-08-01] MEDS: PANTOPRAZOLE 40 MG TABLET PO SCH (11:56)
[2023-08-01] MEDS: CARVEDILOL 25 MG TABLET (FP) PO SCH ×2 (11:56→22:01)
[2023-08-01] MEDS: ENOXAPARIN NA (PORCINE) 120 MG/0.8 ML DISP.SYRIN SQ SCH (15:41)
[2023-08-02] MEDS: ACETAMINOPHEN 325 MG TABLET (FP) PO PRN ×2 (00:36→21:42)
[2023-08-02] MEDS: ENOXAPARIN NA (PORCINE) 120 MG/0.8 ML DISP.SYRIN SQ SCH ×2 (03:00→10:07)
[2023-08-02] MEDS: LEVOTHYROXINE NA 25 MCG TABLET (FP) PO SCH (06:58)
[2023-08-02 08:19] LABS: BASO % 1.3 % (0-2.0); EOS % 3.9 % (0-4.5); HEMATOCRIT 33.5 % (32.4-45.2); HEMATOCRIT 34.9 % (32.4-45.2); HEMOGLOBIN 10.1 GM/dL (10.7-15.3); HEMOGLOBIN 10.6 GM/dL (10.7-15.3); MCH 22.1 pg (25.7-33.7); MCH 22.3 pg (25.7-33.7); MCHC 30.1 g/dl (32.0-36.0); MCHC 30.5 g/dl (32.0-36.0); MEAN CELL VOLUME 73.5 fl (80-96); MEAN PLT VOLUME 7.5 fl (7.5-11.1); MEAN PLT VOLUME 7.7 fl (7.5-11.1); MONO % 9.1 % (3.8-10.2); NEUT % 60.7 % (42.8-82.8); PLATELET COUNT 468 10^3/uL (134-434); PLATELET COUNT 525 10^3/uL (134-434); RBC 4.56 M/mm3 (3.60-5.2); RBC 4.78 M/mm3 (3.60-5.2); RDW 31.7 % (11.6-15.6); RDW 32.2 % (11.6-15.6); WHITE BLOOD COUNT 12.7 K/mm3 (4.0-10.0); WHITE BLOOD COUNT 12.9 K/mm3 (4.0-10.0)
[2023-08-02 08:44] LABS: POTASSIUM 4.1 mmol/L (3.5-5.1)
[2023-08-02 08:48] LABS: ALBUMIN 3.3 g/dl (3.4-5.0); BLOOD UREA NITROGEN 30.6 mg/dL (7-18)
[2023-08-02 08:50] LABS: CALCIUM 9.7 mg/dL (8.5-10.1)
[2023-08-02 08:55] LABS: BILIRUBIN,TOTAL 0.5 mg/dL (0.2-1)
[2023-08-02] MEDS: CARVEDILOL 25 MG TABLET (FP) PO SCH ×2 (09:10→21:39)
[2023-08-02] MEDS: PANTOPRAZOLE 40 MG TABLET PO SCH (09:10)
[2023-08-02] MEDS: LORATADINE 10 MG TABLET PO SCH (09:10)
[2023-08-02 10:36] LABS: PH,URINE 5.5 (5.0-8.0); URINE APPEARANCE TURBID; URINE BILIRUBIN MODERATE (NEGATIVE); URINE COLOR DK YELLOW; URINE GLUCOSE (UA) 1+ (NEGATIVE); URINE KETONE 15 mg/dl (NEGATIVE); URINE PROTEIN 2+ (NEGATIVE)
[2023-08-02 10:37] LABS: URINE LEUK ESTERASE TRACE (NEGATIVE); URINE NITRITE POSITIVE (NEGATIVE)
[2023-08-02 10:53] LABS: URINE RBC 0-3 /uL (0-23.9)
[2023-08-02 10:54] LABS: EPI CELLS 3+ /uL (0-25.1); URINE BACTERIA 2+ /uL (0-1359)
[2023-08-02] MEDS: SODIUM CHLORIDE 0.45% 1,000 ML IV SCH (12:12)
[2023-08-02] MEDS: ASPIRIN COATED 81 MG TABLET.EC PO SCH (16:17)
[2023-08-03] MEDS: LEVOTHYROXINE NA 25 MCG TABLET (FP) PO SCH (05:59)
[2023-08-03 07:18] LABS: HEMATOCRIT 32.9 % (32.4-45.2); HEMOGLOBIN 10.2 GM/dL (10.7-15.3); MCH 22.5 pg (25.7-33.7); MEAN CELL VOLUME 72.7 fl (80-96); MEAN PLT VOLUME 8.1 fl (7.5-11.1); PLATELET COUNT 461 10^3/uL (134-434); RBC 4.52 M/mm3 (3.60-5.2); RDW 32.1 % (11.6-15.6)
[2023-08-03 07:40] LABS: POTASSIUM 3.7 mmol/L (3.5-5.1)
[2023-08-03 07:54] LABS: CREATININE 1.7 mg/dL (0.55-1.3); TOT PROT 7.4 g/dl (6.4-8.2)
[2023-08-03 07:57] LABS: BILIRUBIN,TOTAL 0.5 mg/dL (0.2-1)
[2023-08-03 08:20] LABS: CALCIUM 9.1 mg/dL (8.5-10.1)
[2023-08-03 08:22] LABS: BLOOD UREA NITROGEN 32.1 mg/dL (7-18)
[2023-08-03 08:23] LABS: ALBUMIN 3.1 g/dl (3.4-5.0)
[2023-08-03] MEDS: ASPIRIN COATED 81 MG TABLET.EC PO SCH (10:17)
[2023-08-03] MEDS: LORATADINE 10 MG TABLET PO SCH (10:17)
[2023-08-03] MEDS: ENOXAPARIN NA (PORCINE) 120 MG/0.8 ML DISP.SYRIN SQ SCH (10:17)
[2023-08-03] MEDS: CARVEDILOL 25 MG TABLET (FP) PO SCH (10:17)
[2023-08-03] MEDS: PANTOPRAZOLE 40 MG TABLET PO SCH (10:17)
[2023-08-03] MEDS: POLYETHYLENE GLYCOL (HEALTHYLAX) 3350 17 GM PACKET PO PRN (11:31)
[2023-08-03] MEDS: DOCUSATE SODIUM 100 MG CAPSULE (FP) PO PRN (11:31)
[2023-08-03] MEDS: SODIUM CHLORIDE 0.45% 1,000 ML IV SCH (16:09)
[2023-08-03] MEDS: ACETAMINOPHEN 325 MG TABLET (FP) PO PRN (20:47)
[2023-08-04] MEDS: CARVEDILOL 25 MG TABLET (FP) PO SCH ×3 (06:13→21:31)
[2023-08-04] MEDS: LEVOTHYROXINE NA 25 MCG TABLET (FP) PO SCH (06:17)
[2023-08-04] MEDS: ASPIRIN COATED 81 MG TABLET.EC PO SCH (11:01)
[2023-08-04] MEDS: LORATADINE 10 MG TABLET PO SCH (11:01)
[2023-08-04] MEDS: PANTOPRAZOLE 40 MG TABLET PO SCH (11:01)
[2023-08-04] MEDS: ENOXAPARIN NA (PORCINE) 120 MG/0.8 ML DISP.SYRIN SQ SCH (11:01)
[2023-08-04 11:21] LABS: HEMATOCRIT 32.1 % (32.4-45.2); HEMOGLOBIN 9.8 GM/dL (10.7-15.3); MCH 22.6 pg (25.7-33.7); MCHC 30.6 g/dl (32.0-36.0); MEAN CELL VOLUME 73.9 fl (80-96); MEAN PLT VOLUME 8.1 fl (7.5-11.1); PLATELET COUNT 399 10^3/uL (134-434); RBC 4.34 M/mm3 (3.60-5.2); RDW 32.1 % (11.6-15.6); WHITE BLOOD COUNT 9.2 K/mm3 (4.0-10.0)
[2023-08-04 11:28] LABS: POTASSIUM 3.9 mmol/L (3.5-5.1)
[2023-08-04 11:30] LABS: ALBUMIN 3.1 g/dl (3.4-5.0)
[2023-08-04 11:32] LABS: BLOOD UREA NITROGEN 27.3 mg/dL (7-18)
[2023-08-04 11:35] LABS: BILIRUBIN,TOTAL 0.6 mg/dL (0.2-1); CREATININE 1.6 mg/dL (0.55-1.3); TOT PROT 7.6 g/dl (6.4-8.2)
[2023-08-04] MEDS: BENZONATATE 100 MG CAPSULE PO PRN (12:28)
[2023-08-04 15:52] LABS: CREATININE, URINE RANDOM > 300.0 mg/dL (30-150)
[2023-08-04] MEDS: ACETAMINOPHEN 325 MG TABLET (FP) PO PRN (21:31)
[2023-08-05] MEDS: LEVOTHYROXINE NA 25 MCG TABLET (FP) PO SCH (07:01)
[2023-08-05 08:41] LABS: POTASSIUM 4.2 mmol/L (3.5-5.1)
[2023-08-05 08:44] LABS: CALCIUM 8.3 mg/dL (8.5-10.1)
[2023-08-05 08:46] LABS: BLOOD UREA NITROGEN 31.4 mg/dL (7-18)
[2023-08-05 08:48] LABS: CREATININE 1.5 mg/dL (0.55-1.3)
[2023-08-05 08:49] LABS: BILIRUBIN,TOTAL 0.5 mg/dL (0.2-1); HEMATOCRIT 29.5 % (32.4-45.2); MCHC 30.4 g/dl (32.0-36.0); MEAN CELL VOLUME 75.7 fl (80-96); MEAN PLT VOLUME 7.5 fl (7.5-11.1); PLATELET COUNT 442 10^3/uL (134-434); RDW 32.2 % (11.6-15.6); WHITE BLOOD COUNT 7.6 K/mm3 (4.0-10.0)
[2023-08-05 08:50] LABS: TOT PROT 7.4 g/dl (6.4-8.2)
[2023-08-05] MEDS: ACETAMINOPHEN 325 MG TABLET (FP) PO PRN ×2 (10:06→22:24)
[2023-08-05] MEDS: BENZONATATE 100 MG CAPSULE PO PRN (10:57)
[2023-08-05] MEDS: PANTOPRAZOLE 40 MG TABLET PO SCH (10:57)
[2023-08-05] MEDS: LORATADINE 10 MG TABLET PO SCH (10:57)
[2023-08-05] MEDS: ASPIRIN COATED 81 MG TABLET.EC PO SCH (10:58)
[2023-08-05] MEDS: CARVEDILOL 25 MG TABLET (FP) PO SCH ×2 (10:58→22:22)
[2023-08-05] MEDS: ENOXAPARIN NA (PORCINE) 120 MG/0.8 ML DISP.SYRIN SQ SCH ×2 (10:58→22:22)
[2023-08-05 12:42] LABS: MAGNESIUM 1.8 mg/dL (1.8-2.4)
[2023-08-06] MEDS: LEVOTHYROXINE NA 25 MCG TABLET (FP) PO SCH (06:22)
[2023-08-06 07:48] LABS: EOS % 5.4 % (0-4.5); HEMATOCRIT 27.9 % (32.4-45.2); LYMPH % 27.8 % (8-40); MCH 24.1 pg (25.7-33.7); MCHC 32.3 g/dl (32.0-36.0); MEAN CELL VOLUME 74.5 fl (80-96); MEAN PLT VOLUME 7.7 fl (7.5-11.1); MONO % 9.1 % (3.8-10.2); NEUT % 56.7 % (42.8-82.8); PLATELET COUNT 452 10^3/uL (134-434); RBC 3.74 M/mm3 (3.60-5.2); RDW 31.7 % (11.6-15.6); WHITE BLOOD COUNT 6.5 K/mm3 (4.0-10.0)
[2023-08-06 09:03] LABS: POTASSIUM 4.1 mmol/L (3.5-5.1)
[2023-08-06 09:09] LABS: BLOOD UREA NITROGEN 32.7 mg/dL (7-18); CALCIUM 8.1 mg/dL (8.5-10.1)
[2023-08-06 09:10] LABS: ALBUMIN 2.9 g/dl (3.4-5.0); MAGNESIUM 1.6 mg/dL (1.8-2.4)
[2023-08-06 09:12] LABS: CREATININE 1.5 mg/dL (0.55-1.3)
[2023-08-06 09:14] LABS: BILIRUBIN,TOTAL 0.3 mg/dL (0.2-1)
[2023-08-06] MEDS: ACETAMINOPHEN 325 MG TABLET (FP) PO PRN ×2 (09:25→20:50)
[2023-08-06] MEDS: PANTOPRAZOLE 40 MG TABLET PO SCH (09:26)
[2023-08-06] MEDS: POLYETHYLENE GLYCOL (HEALTHYLAX) 3350 17 GM PACKET PO PRN (09:26)
[2023-08-06] MEDS: ASPIRIN COATED 81 MG TABLET.EC PO SCH (09:26)
[2023-08-06] MEDS: CARVEDILOL 25 MG TABLET (FP) PO SCH ×2 (09:26→21:38)
[2023-08-06] MEDS: DOCUSATE SODIUM 100 MG CAPSULE (FP) PO PRN (09:26)
[2023-08-06] MEDS: ENOXAPARIN NA (PORCINE) 120 MG/0.8 ML DISP.SYRIN SQ SCH ×2 (09:26→21:38)
[2023-08-06] MEDS ORDERED: MAGNESIUM 1GM/D5W 100ML - 100 ML IVPB IVPB ONE (11:00)
[2023-08-07] MEDS: LEVOTHYROXINE NA 25 MCG TABLET (FP) PO SCH (06:48)
[2023-08-07 08:37] LABS: BASO % 1.7 % (0-2.0); HEMATOCRIT 29.7 % (32.4-45.2); HEMOGLOBIN 9.2 GM/dL (10.7-15.3); LYMPH % 23.3 % (8-40); MCH 23.3 pg (25.7-33.7); MEAN CELL VOLUME 75.3 fl (80-96); MEAN PLT VOLUME 7.7 fl (7.5-11.1); MONO % 9.2 % (3.8-10.2); NEUT % 61.8 % (42.8-82.8); PLATELET COUNT 460 10^3/uL (134-434); RBC 3.94 M/mm3 (3.60-5.2); RDW 31.9 % (11.6-15.6); WHITE BLOOD COUNT 7.4 K/mm3 (4.0-10.0)
[2023-08-07 09:01] LABS: POTASSIUM 4.1 mmol/L (3.5-5.1)
[2023-08-07 09:19] LABS: CALCIUM 8.9 mg/dL (8.5-10.1); MAGNESIUM 2.2 mg/dL (1.8-2.4)
[2023-08-07 09:22] LABS: PHOSPHOROUS 2.8 mg/dL (2.5-4.9)
[2023-08-07 09:23] LABS: CREATININE 1.2 mg/dL (0.55-1.3)
[2023-08-07 09:24] LABS: BILIRUBIN,TOTAL 0.3 mg/dL (0.2-1); TOT PROT 7.2 g/dl (6.4-8.2)
[2023-08-07] MEDS: ACETAMINOPHEN 325 MG TABLET (FP) PO PRN ×2 (09:34→20:15)
[2023-08-07] MEDS: ENOXAPARIN NA (PORCINE) 120 MG/0.8 ML DISP.SYRIN SQ SCH ×2 (09:35→21:59)
[2023-08-07] MEDS: PANTOPRAZOLE 40 MG TABLET PO SCH (09:35)
[2023-08-07] MEDS: ASPIRIN COATED 81 MG TABLET.EC PO SCH (09:35)
[2023-08-07] MEDS: CARVEDILOL 25 MG TABLET (FP) PO SCH ×2 (09:35→21:59)
[2023-08-07] MEDS: BENZONATATE 100 MG CAPSULE PO PRN (16:59)
[2023-08-07] MEDS ORDERED: GABAPENTIN 300 MG CAPSULE PO ONE (23:11)
[2023-08-08] MEDS: LEVOTHYROXINE NA 25 MCG TABLET (FP) PO SCH (06:19)
[2023-08-08 07:39] LABS: POTASSIUM 4.1 mmol/L (3.5-5.1)
[2023-08-08 07:44] LABS: CALCIUM 8.7 mg/dL (8.5-10.1)
[2023-08-08 07:45] LABS: BLOOD UREA NITROGEN 19.3 mg/dL (7-18); MAGNESIUM 1.9 mg/dL (1.8-2.4)
[2023-08-08 07:48] LABS: CREATININE 1.2 mg/dL (0.55-1.3); PHOSPHOROUS 2.6 mg/dL (2.5-4.9)
[2023-08-08 08:03] LABS: BASO % 1.2 % (0-2.0); EOS % 5.1 % (0-4.5); HEMATOCRIT 30.7 % (32.4-45.2); HEMOGLOBIN 9.3 GM/dL (10.7-15.3); LYMPH % 29.4 % (8-40); MCHC 30.3 g/dl (32.0-36.0); MEAN CELL VOLUME 76.1 fl (80-96); MEAN PLT VOLUME 7.5 fl (7.5-11.1); MONO % 8.9 % (3.8-10.2); NEUT % 55.4 % (42.8-82.8); PLATELET COUNT 489 10^3/uL (134-434); RBC 4.03 M/mm3 (3.60-5.2); RDW 31.6 % (11.6-15.6); WHITE BLOOD COUNT 6.6 K/mm3 (4.0-10.0)
[2023-08-08] MEDS: CARVEDILOL 25 MG TABLET (FP) PO SCH ×2 (09:15→22:11)
[2023-08-08] MEDS: PANTOPRAZOLE 40 MG TABLET PO SCH (09:15)
[2023-08-08] MEDS: ASPIRIN COATED 81 MG TABLET.EC PO SCH (09:15)
[2023-08-08] MEDS: ENOXAPARIN NA (PORCINE) 120 MG/0.8 ML DISP.SYRIN SQ SCH ×2 (09:15→22:11)
[2023-08-08] MEDS: SACUBITRIL/VALSARTAN 24 MG-26 MG TABLET PO SCH ×2 (13:30→22:11)
[2023-08-08] MEDS: ACETAMINOPHEN 325 MG TABLET (FP) PO PRN (15:49)
[2023-08-08] MEDS: GABAPENTIN 300 MG CAPSULE PO SCH (22:11)
[2023-08-09] MEDS: LEVOTHYROXINE NA 25 MCG TABLET (FP) PO SCH (06:43)
[2023-08-09] MEDS: SACUBITRIL/VALSARTAN 24 MG-26 MG TABLET PO SCH ×2 (10:03→21:24)
[2023-08-09] MEDS: PANTOPRAZOLE 40 MG TABLET PO SCH (10:03)
[2023-08-09] MEDS: ENOXAPARIN NA (PORCINE) 120 MG/0.8 ML DISP.SYRIN SQ SCH ×2 (10:03→21:25)
[2023-08-09] MEDS: GABAPENTIN 300 MG CAPSULE PO SCH ×2 (10:03→21:24)
[2023-08-09] MEDS: CARVEDILOL 25 MG TABLET (FP) PO SCH ×2 (10:04→21:24)
[2023-08-09 12:05] LABS: HEMATOCRIT 29.8 % (32.4-45.2); HEMOGLOBIN 9.2 GM/dL (10.7-15.3); MCH 23.4 pg (25.7-33.7); MCHC 30.7 g/dl (32.0-36.0); MEAN PLT VOLUME 7.1 fl (7.5-11.1); PLATELET COUNT 475 10^3/uL (134-434); RBC 3.92 M/mm3 (3.60-5.2); RDW 31.3 % (11.6-15.6); WHITE BLOOD COUNT 6.6 K/mm3 (4.0-10.0)
[2023-08-09 12:18] LABS: POTASSIUM 4.2 mmol/L (3.5-5.1)
[2023-08-09 12:21] LABS: ALBUMIN 2.9 g/dl (3.4-5.0); BLOOD UREA NITROGEN 16.9 mg/dL (7-18)
[2023-08-09 12:24] LABS: CREATININE 1.1 mg/dL (0.55-1.3)
[2023-08-09 12:26] LABS: BILIRUBIN,TOTAL 0.3 mg/dL (0.2-1); TOT PROT 7.2 g/dl (6.4-8.2)
[2023-08-09] MEDS: ACETAMINOPHEN 325 MG TABLET (FP) PO PRN (15:38)
[2023-08-09] MEDS ORDERED: FAMOTIDINE 20 MG TABLET PO ONE (18:36)
[2023-08-10] MEDS: LEVOTHYROXINE NA 25 MCG TABLET (FP) PO SCH (06:06)
[2023-08-10] MEDS: ENOXAPARIN NA (PORCINE) 120 MG/0.8 ML DISP.SYRIN SQ SCH ×2 (10:18→21:14)
[2023-08-10] MEDS: PANTOPRAZOLE 40 MG TABLET PO SCH (10:19)
[2023-08-10] MEDS: SACUBITRIL/VALSARTAN 24 MG-26 MG TABLET PO SCH ×2 (10:19→21:15)
[2023-08-10] MEDS: CARVEDILOL 25 MG TABLET (FP) PO SCH ×2 (10:19→21:16)
[2023-08-10] MEDS: GABAPENTIN 300 MG CAPSULE PO SCH ×2 (10:19→21:15)
[2023-08-10] MEDS: ACETAMINOPHEN 325 MG TABLET (FP) PO PRN ×2 (13:34→21:15)
[2023-08-10] MEDS ORDERED: IRON SUCROSE INJECTION 200 MG in SODIUM CHLORIDE 90 ML IVPB ONE (20:30)
[2023-08-10] MEDS: POLYETHYLENE GLYCOL (HEALTHYLAX) 3350 17 GM PACKET PO PRN (21:14)
[2023-08-10] MEDS: BACLOFEN 10 MG TABLET (FP) PO PRN (21:15)
[2023-08-11] MEDS: LEVOTHYROXINE NA 25 MCG TABLET (FP) PO SCH (06:15)
[2023-08-11 09:53] LABS: HEMATOCRIT 31.4 % (32.4-45.2); HEMOGLOBIN 9.5 GM/dL (10.7-15.3); MCHC 30.4 g/dl (32.0-36.0); MEAN CELL VOLUME 75.7 fl (80-96); PLATELET COUNT 484 10^3/uL (134-434); RBC 4.14 M/mm3 (3.60-5.2); RDW 31.1 % (11.6-15.6); WHITE BLOOD COUNT 6.9 K/mm3 (4.0-10.0)
[2023-08-11] MEDS: PANTOPRAZOLE 40 MG TABLET PO SCH (09:53)
[2023-08-11] MEDS: SACUBITRIL/VALSARTAN 24 MG-26 MG TABLET PO SCH ×2 (09:53→21:12)
[2023-08-11] MEDS: GABAPENTIN 300 MG CAPSULE PO SCH ×2 (09:53→21:12)
[2023-08-11] MEDS: RIVAROXABAN 15 MG TABLET PO SCH ×2 (09:53→17:53)
[2023-08-11] MEDS: CARVEDILOL 25 MG TABLET (FP) PO SCH ×2 (09:53→21:12)
[2023-08-11] MEDS: FAMOTIDINE 20 MG TABLET PO SCH ×3 (09:53→21:12)
[2023-08-11 10:12] LABS: POTASSIUM 4.5 mmol/L (3.5-5.1)
[2023-08-11 10:14] LABS: BLOOD UREA NITROGEN 20.2 mg/dL (7-18); CALCIUM 9.5 mg/dL (8.5-10.1)
[2023-08-11 10:19] LABS: BILIRUBIN,TOTAL 0.2 mg/dL (0.2-1); TOT PROT 7.2 g/dl (6.4-8.2)
[2023-08-11] MEDS ORDERED: MAG HYDROX/AL HYDROX/SIMETH 30 ML UNIT-DOSE CUP PO PRN (12:43)
[2023-08-11] MEDS: BACLOFEN 10 MG TABLET (FP) PO PRN (21:12)
[2023-08-12] MEDS: LEVOTHYROXINE NA 25 MCG TABLET (FP) PO SCH (06:03)
[2023-08-12] MEDS: RIVAROXABAN 15 MG TABLET PO SCH ×2 (08:45→18:07)
[2023-08-12] MEDS: FAMOTIDINE 20 MG TABLET PO SCH ×2 (09:58→21:56)
[2023-08-12] MEDS: CARVEDILOL 25 MG TABLET (FP) PO SCH ×2 (09:58→21:56)
[2023-08-12] MEDS: GABAPENTIN 300 MG CAPSULE PO SCH ×2 (09:58→21:56)
[2023-08-12] MEDS: SACUBITRIL/VALSARTAN 24 MG-26 MG TABLET PO SCH ×2 (09:58→21:56)
[2023-08-12 17:34] LABS: BLOOD UREA NITROGEN 19.4 mg/dL (7-18); CALCIUM 9.3 mg/dL (8.5-10.1); CREATININE 1.2 mg/dL (0.55-1.3); POTASSIUM 4.1 mmol/L (3.5-5.1)
[2023-08-12] MEDS: ATORVASTATIN CA 40 MG TABLET (FP) PO SCH (21:56)
[2023-08-13] MEDS ORDERED: diphenhydrAMINE HCL 25 MG CAPSULE (FP) PO PRN (03:27)
[2023-08-13] MEDS: LEVOTHYROXINE NA 25 MCG TABLET (FP) PO SCH (06:24)
[2023-08-13 07:30] LABS: BASO % 0.9 % (0-2.0); EOS % 3.8 % (0-4.5); HEMATOCRIT 28.2 % (32.4-45.2); HEMOGLOBIN 8.8 GM/dL (10.7-15.3); LYMPH % 24.6 % (8-40); MCH 23.5 pg (25.7-33.7); MCHC 31.2 g/dl (32.0-36.0); MEAN CELL VOLUME 75.4 fl (80-96); MONO % 10.8 % (3.8-10.2); NEUT % 59.9 % (42.8-82.8); PLATELET COUNT 405 10^3/uL (134-434); RBC 3.74 M/mm3 (3.60-5.2); RDW 30.7 % (11.6-15.6)
[2023-08-13 07:40] LABS: POTASSIUM 4.4 mmol/L (3.5-5.1)
[2023-08-13 07:44] LABS: ALBUMIN 2.9 g/dl (3.4-5.0); BLOOD UREA NITROGEN 17.8 mg/dL (7-18)
[2023-08-13 07:46] LABS: CREATININE 1.1 mg/dL (0.55-1.3)
[2023-08-13 07:48] LABS: BILIRUBIN,TOTAL 0.2 mg/dL (0.2-1); TOT PROT 6.9 g/dl (6.4-8.2)
[2023-08-13 07:53] LABS: CALCIUM 9.5 mg/dL (8.5-10.1)
[2023-08-13] MEDS: RIVAROXABAN 15 MG TABLET PO SCH ×2 (08:35→17:06)
[2023-08-13] MEDS: GABAPENTIN 300 MG CAPSULE PO SCH ×2 (11:03→21:38)
[2023-08-13] MEDS: FAMOTIDINE 20 MG TABLET PO SCH ×2 (11:03→21:39)
[2023-08-13] MEDS: SPIRONOLACTONE 25 MG TABLET PO SCH (11:03)
[2023-08-13] MEDS: ASPIRIN COATED 81 MG TABLET.EC PO SCH (11:03)
[2023-08-13] MEDS: SACUBITRIL/VALSARTAN 24 MG-26 MG TABLET PO SCH ×2 (11:04→21:38)
[2023-08-13] MEDS: FUROSEMIDE 20 MG TABLET (FP) PO SCH (11:04)
[2023-08-13] MEDS: CARVEDILOL 25 MG TABLET (FP) PO SCH ×2 (11:04→21:38)
[2023-08-13] MEDS: ATORVASTATIN CA 40 MG TABLET (FP) PO SCH (21:38)
[2023-08-14] MEDS: LEVOTHYROXINE NA 25 MCG TABLET (FP) PO SCH (06:34)
[2023-08-14 07:37] LABS: HEMATOCRIT 32.1 % (32.4-45.2); HEMOGLOBIN 9.9 GM/dL (10.7-15.3); MCH 23.7 pg (25.7-33.7); MCHC 30.8 g/dl (32.0-36.0); MEAN PLT VOLUME 7.4 fl (7.5-11.1); PLATELET COUNT 408 10^3/uL (134-434); RBC 4.17 M/mm3 (3.60-5.2); WHITE BLOOD COUNT 8.4 K/mm3 (4.0-10.0)
[2023-08-14 07:57] LABS: POTASSIUM 4.5 mmol/L (3.5-5.1)
[2023-08-14 07:59] LABS: CALCIUM 9.5 mg/dL (8.5-10.1)
[2023-08-14 08:00] LABS: BLOOD UREA NITROGEN 18.4 mg/dL (7-18)
[2023-08-14 08:03] LABS: CREATININE 1.1 mg/dL (0.55-1.3); PHOSPHOROUS 4.4 mg/dL (2.5-4.9)
[2023-08-14] MEDS: FAMOTIDINE 20 MG TABLET PO SCH (11:57)
[2023-08-14] MEDS: SACUBITRIL/VALSARTAN 24 MG-26 MG TABLET PO SCH (11:57)
[2023-08-14] MEDS: ASPIRIN COATED 81 MG TABLET.EC PO SCH (11:57)
[2023-08-14] MEDS: RIVAROXABAN 15 MG TABLET PO SCH (11:57)
[2023-08-14] MEDS: SPIRONOLACTONE 25 MG TABLET PO SCH (11:57)
[2023-08-14] MEDS: CARVEDILOL 25 MG TABLET (FP) PO SCH (11:57)
[2023-08-14] MEDS: GABAPENTIN 300 MG CAPSULE PO SCH (11:58)
[2023-08-14] MEDS: FUROSEMIDE 20 MG TABLET (FP) PO SCH (11:58)
[2023-08-14 13:47] VITALS: BP 143/89; PULSE 70; RESP 24; TEMP 98.6
== END 2023-08-14 16:54 | disposition home health service (06) | DRG 291 ==
LOC: JER 21:26 → JERBED 08-01 02:40 → J4W 08-01 12:41
PROVIDERS: ADMIT Internal Medicine; ATTEND Internal Medicine
DX: I13.0 Hypertensive heart and chronic kidney disease with heart failure and stage 1 through stage 4 chronic kidney disease, or unspecified chronic kidney disease (principal); I26.99 Other pulmonary embolism without acute cor pulmonale; I50.23 Acute on chronic systolic (congestive) heart failure; N17.9 Acute kidney failure, unspecified; I24.89 Other forms of acute ischemic heart disease; Z68.41 Body mass index [BMI] 40.0-44.9, adult; I42.0 Dilated cardiomyopathy; D50.9 Iron deficiency anemia, unspecified; I25.10 Atherosclerotic heart disease of native coronary artery without angina pectoris; E11.9 Type 2 diabetes mellitus without complications; E78.5 Hyperlipidemia, unspecified; E03.9 Hypothyroidism, unspecified; N18.9 Chronic kidney disease, unspecified; E66.01 Morbid (severe) obesity due to excess calories; E83.52 Hypercalcemia; E83.42 Hypomagnesemia
CPT/HCPCS: 0241U-QW; 36415; 71045-TC-FY; 71275-TC; 74240-TC-FY; 76775-TC; 80048; 80053; 80061; 81003; 82272; 82436; 82550; 82570; 82607; 82746; 82962; 83036; 83540; 83550; 83605; 83735; 83880; 84100; 84133; 84300; 84443; 84484; 85025; 85027; 85379; 85610; 85730; 86850; 86900; 86901; 87086; 93005; 93010; 93306-TC; 93970-TC; 94010; 94761; 97116-GP; 97162-GP; 99285-25; J0475; J1756; Q9967